=== PATIENT | male | born 1935 | race Caucasian/White ===

== ENCOUNTER → 2016-04-29 | Outpatient (CLI) | payer MEDICARE ==
[~2016-04-29] MED LIST: ADV1DS IH; ALFU10TA11 PO; CHOL200018 PO; FLUT16SP22 NS; FURO20TA4 PO; LISI10TA2 PO; MONT10TA24 PO; OMEG-79 PO; SIMV40TA4 PO; UBID200C PO; VIT PO
--- NOTE | 2016-04-29 16:41 | Diagnostic Imaging Report ---
INDICATION: Cough. PA and lateral views of the chest are obtained. There is no previous study available at this time for comparison. FINDINGS: Heart size and pulmonary vascularity are within normal limits. There is no pneumothorax or consolidation. Occasional small calcified granulomas seen within the right lung and hilum. There is no significant pleural fluid. IMPRESSION: No acute abnormalities identified. Dictated by: Dictated on workstation # [id number]
== END ==
LOC: RAD 14:18
PROVIDERS: ATTEND Nurse Practitioner Family
DX: R05 Cough (principal)
CPT/HCPCS: 71020

== ENCOUNTER → 2018-05-22 | Outpatient (CLI) | payer MEDICARE ==
--- NOTE | 2018-05-22 11:54 | Diagnostic Imaging Report ---
EXAMINATION: Left shoulder radiographs, 3 views. COMPARISON: None. HISTORY: 83-year-old male, left shoulder pain after fall. FINDINGS: The humeral head is superiorly subluxed compatible with a chronic full-thickness rotator cuff tendon tear. The humeral head is not anteriorly or posteriorly subluxed. There are very mild acromioclavicular degenerative changes without large undersurface osteophyte. There are minimal glenohumeral degenerative changes. There is no identified acute fracture. IMPRESSION: 1. Superiorly subluxed humeral head compatible with a chronic full-thickness rotator cuff tendon tear. 2. Very mild acromioclavicular and glenohumeral degenerative changes. Dictated by: Dictated on workstation # [id number]
--- NOTE | 2018-05-22 12:21 | Diagnostic Imaging Report ---
EXAMINATION: Left hip at 11:37 a.m. INDICATION: Fell, hip pain. AP and lateral views were obtained. There are no prior studies available for comparison. FINDINGS: There is no fracture, dislocation, or acute bony abnormality evident. 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 There is fairly severe degenerative disc and bony disease of the visualized lower lumbar spine, particularly at L4-5. The soft tissues are unremarkable. IMPRESSION: There is no evidence for an acute bony abnormality. Dictated by: Dictated on workstation # [id number]
== END ==
LOC: RAD 11:11
PROVIDERS: ATTEND Nurse Practitioner Family
DX: S43.002A Unspecified subluxation of left shoulder joint, initial encounter (principal); M19.012 Primary osteoarthritis, left shoulder; M25.552 Pain in left hip; W19.XXXA Unspecified fall, initial encounter
CPT/HCPCS: 73030; 73502

== ENCOUNTER 2018-12-18 19:41 | Outpatient (CLI) | payer MEDICARE | END 2018-12-19 05:59 | disposition home or self-care (01) | LOC: SLEEP 19:41 | PROVIDERS: ATTEND Nurse Practitioner | DX: G47.33 Obstructive sleep apnea (adult) (pediatric) (principal); R51 Headache | CPT/HCPCS: 95811 ==

== ENCOUNTER 2019-04-02 14:16 | Inpatient (IN) | payer MEDICARE ==
[~2019-04-02] VITALS: Ht 170.2 cm; Wt 71.2 kg
[2019-04-02] MEDS ORDERED: NS IV 1000 ML 1,000 ML IV SCH ×2 (14:27)
[2019-04-02] MEDS ORDERED: CEFEPIME INJECTION 1,000 MG in WATER (STERILE) FOR INJECTION 10 ML IV ONE (14:30)
[2019-04-02] MEDS ORDERED: VANCOMYCIN INJECTION 1,500 MG in NS IV 500 ML 500 ML IV ONE (14:30)
[2019-04-02] MEDS ORDERED: PHARMACY TO DOSE IV ONE (14:30)
[2019-04-02 14:52] LABS: BASOPHILS % (AUTO) 0 % (0-10); EOSINOPHILS # (AUTO) 0.1 10^3/uL (0.0-0.3); EOSINOPHILS % (AUTO) 1 % (0-10); HEMATOCRIT 36 % (40-54); HEMOGLOBIN 12.2 G/DL (13.3-17.7); LYMPHOCYTES # (AUTO) 0.9 X 10^3 (1.0-4.0); LYMPHOCYTES % (AUTO) 6 % (12-44); MEAN CORPUSCULAR HEMOGLOBIN 32 PG (25-34); MEAN CORPUSCULAR HGB CONC 34 G/DL (32-36); MEAN CORPUSCULAR VOLUME 94 FL (80-99); MEAN PLATELET VOLUME 10.3 FL (7.4-10.4); MONOCYTES # (AUTO) 0.8 X 10^3 (0.0-1.0); MONOCYTES % (AUTO) 6 % (0-12); NEUTROPHILS # (AUTO) 12.7 X 10^3 (1.8-7.8); NEUTROPHILS % (AUTO) 87 % (42-75); PLATELET COUNT 312 10^3/uL (130-400); RED CELL DISTRIBUTION WIDTH 12.8 % (10.0-14.5); WHITE BLOOD COUNT 14.6 10^3/uL (4.3-11.0)
--- NOTE | 2019-04-02 14:58 | ED Respiratory ---
General Chief Complaint: Fever-Adult/Adol Stated Complaint: N/V Nursing Triage Note: Patient brought to ER by with complaint of fever today with cough. Patient did have one episode of vomiting today. Patient had surgery on right knee on Mar [address] Osuna. Patient has not had tylenol or ibuprofen today. He did take a Tramadol at 07:00 AM today. Source: patient, spouse Exam Limitations: clinical condition (early dementia with some mild delirium today per ) History of Present Illness Date Seen by Provider: Apr 02, 2019 Time Seen by Provider: 14:19 Initial Comments Patient arrives the ER by private conveyance with spouse and chief complaint that they were going to Dr. Osuna's office for follow-up from her knee was replaced on the right side a few weeks ago. He has been progressing very well, ambulating and down to just to tramadol daily for pain control. No increased redness or swelling but today noted to have fever, nausea vomiting, cough, chills and increasing confusion. He follows with Dr. Hoskins for primary care. Spouse denies that he had Tylenol or NSAIDs today. Not having any increase swelling in his hands or feet. No history of coronary disease but he does have high blood pressure. He does not smoke drink or use drugs. He does have baseline incontinence of urine and had an episode of incontinence on the way over. Spouse says this is not unusual for him. Allergies and Home Medications Allergies Coded Allergies: Penicillins (Unverified Allergy, Unknown, 09/12/13) erythromycin base (Unverified Allergy, Unknown, 09/12/13) Home Medications Alfuzosin Hcl 10 Mg Tab.er.24h, 10 MG PO DAILY, (Reported) Cholecalciferol (Vitamin D3) 2,000 Unit Capsule, 1,000 UNIT PO DAILY, (Reported) Fluticasone Propionate 16 Gm Naspr, 2 SPRAYS NS DAILY, (Reported) Fluticasone/Salmeterol 250 Mcg/50 Mcg Inh, 1 SPRAY IH DAILY, (Reported) Furosemide 20 Mg Tablet, 1 EACH PO PRN PRN for NERVOUSNESS, (Reported) Lisinopril 10 Mg Tablet, 5 MG PO DAILY, (Reported) Montelukast Sodium 10 Mg Tablet, 10 MG PO DAILY, (Reported) [place]-3/Dha/Epa/Fish Oil 1 Each Capsule, 1 EACH PO DAILY, (Reported) Simvastatin 40 Mg Tablet, 40 MG PO DAILY, (Reported) Ubidecarenone 200 Mg Capsule, 200 MG PO DAILY, (Reported) [vemma- liquid vit.] , 1 DROP PO DAILY, (Reported) Patient Home Medication List Home Medication List Reviewed: Yes Review of Systems Review of Systems Constitutional: chills; No diaphoresis; fever, malaise, weakness EENTM: No ear discharge, No ear pain Respiratory: cough, phlegm, short of breath, wheezing Cardiovascular: No chest pain, No edema, No Hx of Intervention, No palpitations Gastrointestinal: No abdominal pain, No diarrhea, No dysphagia; nausea, vomiting Genitourinary: No discharge, No dysuria Musculoskeletal: No back pain, No joint pain Skin: No pruritus, No rash All Other Systems Reviewed Negative Unless Noted: Yes Past Gbiuubg-Dhcnet-Kjsiad Hx Patient Social History Alcohol Use: Denies Use Recreational Drug Use: No Smoking Status: Former Smoker Former Smoker, Quit: Feb 14, 1979 2nd Hand Smoke Exposure: No Recent Foreign Travel: No Contact w/Someone Who Travel: No Recent Infectious Disease Expo: No Recent Hopitalizations: Yes Immunizations Up To Date PED Vaccines UTD: Yes Date of Pneumonia Vaccine: Nov 14, 2009 Date of Influenza Vaccine: Nov 15, 2019 Seasonal Allergies Seasonal Allergies: No Past Medical History Surgeries: Yes (right knee surgery, vascectomy, right heel surgery due to injury) Gallbladder, Orthopedic Respiratory: Yes (ASTHMA) Cardiac: Yes High Cholesterol, Hypertension Neurological: No 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) Gastrointestinal: Yes (HX COLON POLYPS) Musculoskeletal: Yes (ARTHRITIS) Endocrine: Yes Diabetes, Non-Insulin dep HEENT: Yes Cataract Cancer: Yes Skin What Type of Treatment Did You: Surgical Intervention Psychosocial: No Physical Exam Vital Signs - First Documented 04/02/19 14:18 Temp 39.2 Pulse 115 Resp 22 B/P (MAP) 122/69 (86) Pulse Ox 89 O2 Delivery Room Air Capillary Refill : Less Than 3 Seconds Height: 5'7.00" Weight: 183lbs. oz. 83.338496tg; 25.00 BMI Method: General Appearance: WD/WN, mild distress Eyes: Bilateral Eye Normal Inspection, Bilateral Eye PERRL, Bilateral Eye EOMI HEENT: PERRL/EOMI, normal ENT inspection; No pharynx normal (oropharynx is dry) Neck: full range of motion, normal inspection Respiratory: no accessory muscle use, respiratory distress (mild), rales (left lower), wheezing (bilateral) Cardiovascular: normal peripheral pulses, regular rate, rhythm Gastrointestinal: normal bowel sounds, non tender, soft, no organomegaly Neurologic/Psychiatric: alert, normal mood/affect, other (oriented to person and place but not time) Skin: normal color, warm/dry Focused Exam Sepsis Stage: Sepsis Possible Source: Pulmonary Lactate Level 04/02/19 14:35: Lactic Acid Level 1.41 Time of Focused Exam: 15:30 Respiratory: No Accessory Muscle Use, No Respiratory Distress, Rales (left base) Cardiovascular: Regular Rate, Rhythm, No Edema, Normal Peripheral Pulses Capillary Refill: Less Than 3 Seconds Peripheral Pulses: 2+ Radial Pulses (R), 2+ Radial Pulses (L) Skin: normal color, warm/dry Lactic Acid Level Laboratory Tests Test 04/02/19 14:35 Lactic Acid Level 1.41 MMOL/L (0.50-2.00) Within 3hrs of presentation: Admin fluids, Admin ABX, Blood cultures prior to ABX's, Focus exam, Lactate level Progress/Results/Core Measures Suspected Sepsis Recent Fever Within 48 Hours: Yes Infection Criteria Present: Suspected New Infection New/Unexplained Altered Menta: No Sepsis Screen: Possible Severe Sepsis Risk SIRS Temperature: Pulse: 115 Respiratory Rate: 22 Laboratory Tests 04/02/19 14:35: White Blood Count 14.6H Blood Pressure 122 /69 Mean: 86 04/02/19 14:35: Lactic Acid Level 1.41 Laboratory Tests 04/02/19 14:35: Creatinine 1.03, INR Comment 1.2, Platelet Count 312, Total Bilirubin 0.8 Results/Orders Lab Results Laboratory Tests Test 04/02/19 14:35 Range/Units White Blood Count 14.6 H 4.3-11.0 10^3/uL Red Blood Count 3.87 L 4.35-5.85 10^6/uL Hemoglobin 12.2 L 13.3-17.7 G/DL Hematocrit 36 L 40-54 % Mean Corpuscular Volume 94 80-99 FL Mean Corpuscular Hemoglobin 32 25-34 PG Mean Corpuscular Hemoglobin Concent 34 32-36 G/DL Red Cell Distribution Width 12.8 10.0-14.5 % Platelet Count 312 130-400 10^3/uL Mean Platelet Volume 10.3 7.4-10.4 FL Neutrophils (%) (Auto) 87 H 42-75 % Lymphocytes (%) (Auto) 6 L 12-44 % Monocytes (%) (Auto) 6 0-12 % Eosinophils (%) (Auto) 1 0-10 % Basophils (%) (Auto) 0 0-10 % Neutrophils # (Auto) 12.7 H 1.8-7.8 X 10^3 Lymphocytes # (Auto) 0.9 L 1.0-4.0 X 10^3 Monocytes # (Auto) 0.8 0.0-1.0 X 10^3 Eosinophils # (Auto) 0.1 0.0-0.3 10^3/uL Basophils # (Auto) 0.0 0.0-0.1 10^3/uL Neutrophils % (Manual) 80 % Lymphocytes % (Manual) 11 % Monocytes % (Manual) 3 % Eosinophils % (Manual) 2 % Band Neutrophils 4 % Prothrombin Time 15.2 H 12.2-14.7 SEC INR Comment 1.2 0.8-1.4 Activated Partial Thromboplast Time 32 24-35 SEC Urine Color YELLOW Urine Clarity CLEAR Urine pH 8.0 5-9 Urine Specific [place] 1.015 L 1.016-1.022 Urine Protein NEGATIVE NEGATIVE Urine Glucose (UA) NEGATIVE NEGATIVE Urine Ketones NEGATIVE NEGATIVE Urine Nitrite NEGATIVE NEGATIVE Urine Bilirubin NEGATIVE NEGATIVE Urine Urobilinogen 0.2 < = 1.0 MG/DL Urine Leukocyte Esterase NEGATIVE NEGATIVE Urine RBC (Auto) NEGATIVE NEGATIVE Urine RBC RARE /HPF Urine WBC 0-2 /HPF Urine Squamous Epithelial Cells NONE /HPF Urine Crystals NONE /LPF Urine Bacteria NEGATIVE /HPF Urine Casts NONE /LPF Urine Mucus NEGATIVE /LPF Urine Culture Indicated NO Sodium Level 137 135-145 MMOL/L Potassium Level 3.7 3.6-5.0 MMOL/L Chloride Level 104 98-107 MMOL/L Carbon Dioxide Level 24 21-32 MMOL/L Anion Gap 9 5-14 MMOL/L Blood Urea Nitrogen 27 H 7-18 MG/DL Creatinine 1.03 0.60-1.30 MG/DL Estimat Glomerular Filtration Rate > 60 BUN/Creatinine Ratio 26 Glucose Level 166 H 70-105 MG/DL Lactic Acid Level 1.41 0.50-2.00 MMOL/L Calcium Level 9.5 8.5-10.1 MG/DL Corrected Calcium 9.5 8.5-10.1 MG/DL Total Bilirubin 0.8 0.1-1.0 MG/DL Aspartate Amino Transf (AST/SGOT) 21 5-34 U/L Alanine Aminotransferase (ALT/SGPT) 26 0-55 U/L Alkaline Phosphatase 67 40-136 U/L Total Protein 7.1 6.4-8.2 GM/DL Albumin 4.0 3.2-4.5 GM/DL Micro Results Microbiology 04/02/19 Influenza Types A,B Antigen ([place]) - Final, Complete My Orders Orders - ANAND MULLER Cbc With Automated Diff (04/02/19 14:) Comprehensive Metabolic Panel (04/02/19:) Blood Culture (04/02/19:) Sputum Culture (04/02/19 14:) Urinalysis (04/02/19:) Urine Culture (04/02/19:) Protime With Inr (04/02/19:) Partial Thromboplastin Time (04/02/19:) Chest 1 View, Ap/Pa Only (04/02/19 14:27) Ed Iv/Invasive Line Start (04/02/19 14:27) Ed Iv/Invasive Line Start (04/02/19 14:) Vital Signs Adult Sepsis Patie Q15M (04/02/19 14:27) O2 (04/02/19 14:27) Remove Rings In Anticipation O (04/02/19 14:27) Lactic Acid Analyzer (04/02/19 14:27) Influenza A And B Antigens (04/02/19 14:27) Ns Iv 1000 Ml (Sodium Chloride 0.9%) (04/02/19 14:27) Cefepime Injection (Maxipime Injection) (04/02/19 14:30) Vancomycin Injection (Vancomycin Injecti (04/02/19 14:30) Pharmacy To Dose (Pharmacy To Dose) (04/02/19 14:30) Ed Iv/Invasive Line Start (04/02/19 14:27) Ns Iv 1000 Ml (Sodium Chloride 0.9%) (04/02/19 14:27) Catheter(Urinary) Insert & Ass 03,15 (04/02/19 14:32) Manual Differential (04/02/19 14:35) Acetaminophen Tablet (Tylenol Tablet) (04/02/19 15:00) Ondansetron Injection (Zofran Injectio (04/02/19 15:00) Medications Given in ED Current Medications Medications Dose Ordered Sig/Sy Route Start Time Stop Time Status Last Admin Dose Admin Acetaminophen 1,000 mg ONCE ONCE PO 04/02/19 15:00 04/02/19 15:01 DC 04/02/19 15:14 1,000 MG Cefepime HCl 1000 mg/Sterile Water 10 ml @ 200 mls/hr ONCE ONCE IV 04/02/19 14:30 04/02/19 14:32 DC 04/02/19 15:14 200 MLS/HR Ondansetron HCl 4 mg ONCE ONCE IVP 04/02/19 15:00 04/02/19 15:01 DC 04/02/19 15:14 4 MG Vancomycin HCl 1500 mg/Sodium Chloride 500 ml @ 257 mls/hr ONCE ONCE IV 04/02/19 14:30 04/02/19 16:26 DC 04/02/19 16:05 257 MLS/HR Vital Signs/I&O 04/02/19 04/02/19 14:18 14:20 Temp 39.2 Pulse 115 Resp 22 B/P (MAP) 122/69 (86) Pulse Ox 89 92 O2 Delivery Room Air Nasal Cannula Capillary Refill : Less Than 3 Seconds Blood Pressure Mean: 86 Progress Note : Time: 14:57 Progress Note Septic workup to include 30 minutes no lesion or kilogram or 2 L of normal jairo ine, cefepime and vancomycin. His history of allergy to penicillin is a rash. Influenza swab. We'll give him a gram of Tylenol and some Zofran for his symptoms. Diagnostic Imaging Diagonstic Imaging: Xray Plain Films/CT/US/NM/MRI: chest (1v) Comments [facility]. [place], [place] NAME: TERRY HUANG [facility] REC#: [id number] PT STATUS: REG ER : 1935 PHYSICIAN: ANAND MULLER MD ADMIT DATE: 04/02/19/ER Draft Date of Exam:04/02/19 CHEST 1 VIEW, AP/PA ONLY INDICATION: Lower respiratory infection. EXAMINATION: Portable chest at 2:55 PM. FINDINGS: The heart size and pulmonary vascularity are normal. There are no infiltrates, effusions, or pneumothoraces. IMPRESSION: No acute abnormality is seen in the chest. Dictated on workstation # [id number] Dict: 04/02/19 1502 Trans: 04/02/19 1504 [id number] Interpreted by: LINDEN HU MD Electronically signed by: Reviewed: Reviewed by Me Departure Communication (Admissions) Time/Spoke to Admitting Phy: 15:30 Discussed case lab imaging findings with Dr. Hoskins and she agrees with antibiotic selection and floor placement. Impression Primary Impression: Pneumonia Qualified Codes: J18.1 - Lobar pneumonia, unspecified organism Additional Impressions: Sepsis Qualified Codes: A41.9 - Sepsis, unspecified organism; R65.20 - Severe sepsis without septic shock; G93.40 - Encephalopathy, unspecified Delirium due to another medical condition Disposition: ADMITTED INPATIENT Condition: Stable Admissions Decision to Admit Reason: Admit from ER (General) Decision to Admit/Date: Apr 02, 2019 Time/Decision to Admit Time: 15:22 Departure-Patient Inst. Referrals: JULES HOSKINS MD (PCP/Family) Primary Care Physician ANAND MULLER Apr 02, 2019 14:58
[2019-04-02] MEDS ORDERED: ONDANSETRON 4 MG/2 ML (SDV) Z0FRAN IVP ONE (15:00)
[2019-04-02] MEDS ORDERED: ACETAMINOPHEN 500 MG TAB (TYLENOL) PO ONE (15:00)
[2019-04-02 15:02] LABS: BILIRUBIN,URINE NEGATIVE (NEGATIVE); CLARITY,URINE CLEAR; COLOR,URINE YELLOW; GLUCOSE, URINE (UA) NEGATIVE (NEGATIVE); KETONES,URINE NEGATIVE (NEGATIVE); LEUKOCYTE ESTERASE ,URINE NEGATIVE (NEGATIVE); NITRITE,URINE NEGATIVE (NEGATIVE); PROTEIN,URINE NEGATIVE (NEGATIVE)
--- NOTE | 2019-04-02 15:05 | Diagnostic Imaging Report ---
INDICATION: Lower respiratory infection. EXAMINATION: Portable chest at 2:55 PM. FINDINGS: The heart size and pulmonary vascularity are normal. There are no infiltrates, effusions, or pneumothoraces. IMPRESSION: No acute abnormality is seen in the chest. Dictated by: Dictated on workstation # [id number]
[2019-04-02 15:08] LABS: INR 1.2 (0.8-1.4); PROTHROMBIN TIME PATIENT 15.2 SEC (12.2-14.7)
[2019-04-02 15:13] LABS: ALANINE AMINOTRANSFERASE 26 U/L (0-55); ALKALINE PHOSPHATASE 67 U/L (40-136); BILIRUBIN,TOTAL 0.8 MG/DL (0.1-1.0); BUN/CREATININE RATIO 26; CALCIUM 9.5 MG/DL (8.5-10.1); CARBON DIOXIDE 24 MMOL/L (21-32); CHLORIDE 104 MMOL/L (98-107); CREATININE SERUM 1.03 MG/DL (0.60-1.30); GFR ESTIMATED > 60; GLUCOSE 166 MG/DL (70-105); POTASSIUM 3.7 MMOL/L (3.6-5.0); SODIUM 137 MMOL/L (135-145); TOTAL PROTEIN 7.1 GM/DL (6.4-8.2)
[2019-04-02 15:15] LABS: BACTERIA,URINE NEGATIVE /HPF; RBC,URINE RARE /HPF; WBC,URINE 0-2 /HPF
[2019-04-02 15:25] LABS: BAND NEUTROPHILS 4 %; EOSINOPHILS % (MANUAL) 2 %; LYMPHOCYTES % (MANUAL) 11 %; MONOCYTES % (MANUAL) 3 %; NEUTROPHILS % (MANUAL) 80 %
--- NOTE | 2019-04-02 17:41 | NUR ---
CR 1.03; CR CL ~49; WT 74.8 KG; VANCO 1500 MG IV GIVEN IN ER; CONTINUE WITH VANCO 1250 MG IV Q24H X 2 MORE DAYS
[2019-04-02] MEDS ORDERED: ACETAMINOPHEN 500 MG TAB (TYLENOL) PO PRN ×2 (17:45→20:45)
[2019-04-02] MEDS ORDERED: IBUPROFEN 600 MG (MOTRIN) TAB PO PRN (17:45)
[2019-04-02] MEDS ORDERED: ONDANSETRON 4 MG/2 ML (SDV) Z0FRAN IV PRN (17:45)
[2019-04-02] MEDS ORDERED: CATHETER FLUSH 10 ML SYR IV PRN (17:45)
[2019-04-02 17:47] VITALS: BP 126/68
[2019-04-02] MEDS: NS IV 1000 ML 1,000 ML IV SCH (18:31)
[2019-04-02] MEDS: ENOXAPARIN 40 MG/0.4 ML (LOVENOX) SYR SC SCH (18:33)
[2019-04-02 19:37] VITALS: BP 115/68
[2019-04-02] MEDS ORDERED: RT-ALBUTEROL/IPRATROPIUM 3 ML (DUONEB) VIAL INH PRN (20:15)
--- NOTE | 2019-04-02 20:49 | History & Physical ---
History of Present Illness History of Present Illness Reason for visit/HPI PT IS AN 84 Y/O MALE WHO IS KNOWN TO ME FROM CLINIC. HE PRESENTED TO THE HOSPITAL AFTER HAVING AN ACUTE EPISODE OF FEELING POORLY AND HAVING AN ACUTE EPISODE OF EMESIS AFTER SEEING HIS ORTHOPEDIC SURGEON. HE REPORTS THAT HE DID NOT HAVE CHILLS, FEVER, DIZZINESS, CHEST PAIN, SHORTNESS OF BREATH. HE DENIES SWELLING OR FEVER IN HIS RIGHT KNEE. HE HAD THE KNEE REPLACEMENT ON 03/20/2019. Date of Admission Apr 02, 2019 at 15:30 Date Seen by a Provider: Apr 02, 2019 Time Seen by a Provider: 20:15 I consulted on this patient on 04/02/19 20:15 Attending Physician Jules Hoskins MD Admitting Physician Jules Hoskins MD Consult Allergies and Home Medications Allergies Coded Allergies: Penicillins (Unverified Allergy, Unknown, 09/12/13) erythromycin base (Unverified Allergy, Unknown, 09/12/13) Home Medications Alfuzosin Hcl 10 Mg Tab.er.24h, 10 MG PO DAILY, (Reported) Cholecalciferol (Vitamin D3) 2,000 Unit Capsule, 1,000 UNIT PO DAILY, (Reported) Fluticasone Propionate 16 Gm Naspr, 2 SPRAYS NS DAILY, (Reported) Fluticasone/Salmeterol 250 Mcg/50 Mcg Inh, 1 SPRAY IH DAILY, (Reported) Furosemide 20 Mg Tablet, 1 EACH PO PRN PRN for NERVOUSNESS, (Reported) Lisinopril 10 Mg Tablet, 5 MG PO DAILY, (Reported) Montelukast Sodium 10 Mg Tablet, 10 MG PO DAILY, (Reported) [place]-3/Dha/Epa/Fish Oil 1 Each Capsule, 1 EACH PO DAILY, (Reported) Simvastatin 40 Mg Tablet, 20 MG PO DAILY, (Reported) Ubidecarenone 200 Mg Capsule, 200 MG PO DAILY, (Reported) [vemma- liquid vit.] , 1 DROP PO DAILY, (Reported) Patient Home Medication List Home Medication List Reviewed: Yes Past Xklrupc-Ifqaeb-Mxslck Hx Past Med/Social Hx: Reviewed Nursing Past Med/Soc Hx, Reviewed and Corrections made Patient Social History Marrital Status: Living Status: LIVES AT HOME WITH SPOUSE Employed/Student: retired Alcohol Use: Denies Use Recreational Drug Use: No Smoking Status: Former Smoker Former Smoker, Quit: Feb 14, 1955 Type Used: Cigars 2nd Hand Smoke Exposure: No Physical Abuse Screen: No Sexual Abuse: No Recent Foreign Travel: No Contact w/other who traveled: No Recent Hopitalizations: Yes (03/20/2019 - KNEE REPLACEMENT) Recent Infectious Disease Expo: No Immunizations Up To Date Pediatric: Yes Date of Pneumonia Vaccine: Nov 14, 2009 Date of Influenza Vaccine: Nov 14, 2018 Seasonal Allergies Seasonal Allergies: No Past Medical History Surgeries: Gallbladder, Orthopedic Cardiac: High Cholesterol, Hypertension Endocrine: Diabetes, Non-Insulin dep HEENT: Cataract Cancer: Skin What Type of Treatment Did You: Surgical Intervention Family History Reviewed and Corrections made Diabetes mellitus 19 FATHER Diabetes, Hypertension Review of Systems Constitutional: No chills, No diaphoresis, No fever, No malaise, No weakness EENTM: No hoarseness, No throat pain Respiratory: cough; No dyspnea on exertion, No short of breath Cardiovascular: No chest pain, No edema Gastrointestinal: No abdominal pain, No constipation, No diarrhea; nausea, vomiting Genitourinary: no symptoms reported Musculoskeletal: other (RIGHT KNEE PAIN STATUS POST REPLACEMENT ON 03/20/2019) Psychiatric/Neurological: No Symptoms Reported; Denies Anxiety, Denies Depressed All Other Systems Reviewed Negative Unless Noted: Yes Physical Exam Vital Signs Vital Signs - First Documented 04/02/19 04/02/19 04/02/19 14:18 17:47 19:51 Temp 39.2 Pulse 115 Resp 22 B/P (MAP) 122/69 (86) Pulse Ox 89 O2 Delivery Room Air O2 Flow Rate 2.00 FiO2 21 Capillary Refill : Less Than 3 Seconds Height, Weight, BMI Height: 5'7.00" Weight: 183lbs. oz. 83.112931dm; 24.57 BMI Method: General Appearance: No Apparent Distress, WD/WN Eyes: Bilateral Eye Normal Inspection, Bilateral Eye PERRL, Bilateral Eye EOMI HEENT: PERRL/EOMI, Pharynx Normal Neck: Full Range of Motion, Non Tender, Supple Respiratory: Chest Non Tender, Decreased Breath Sounds, Rales, Rhonci Cardiovascular: Regular Rate, Rhythm, No Edema, No Murmur, Normal Peripheral Pulses Gastrointestinal: Normal Bowel Sounds, No Organomegaly, Non Tender, Soft Rectal: Deferred Genital/Rectal: Other (DE LEON IN PLACE) Extremity: Normal Capillary Refill, Non Tender, No Calf Tenderness, No Pedal Edema, Other (SURGICAL SITE RIGHT KNEE ANTERIORLY - NO ERYTHEMA, NO INDURATION) Neurologic/Psychiatric: Alert, Oriented x3, No Motor/Sensory Deficits, Normal Mood/Affect, armature tester II-XII Norm as Tested Skin: Warm/Dry Lymphatic: No Adenopathy Assessment/Plan Assessment and Plan PNEUMONIA NAUSEA LEUKOCYTOSIS MILD DEHYDRATION STATUS POST RIGHT KNEE REPLACEMENT HYPERTENSION HYPERLIPIDEMIA PNEUMONIA - CONTINUE WITH IV ANTIBIOTICS - CEFEPIME, VANCOMYCIN, WAITING ON CULTURE REPORTS. - REPEAT 2 VIEW CHEST XRAY TOMORROW. NAUSEA - NOW RESOLVED -PRN ANTI-EMETICS. LEUKOCYTOSIS - WILL REPEAT LABS TOMORROW. MILD DEHYDRATION - CONTINUE WITH IV FLUIDS - REPEAT LABS IN MORNING - IV FLUIDS DECREASED FROM 150ML/HR TO 100ML/HR STATUS POST RIGHT KNEE REPLACEMENT - CPM MACHINE TO BE SET-UP TOMORROW BY THERAPY STAFF - POLAR ICE BATH FOR KNEE TOMORROW. HYPERTENSION - RESTART HOME MEDICATIONS ONCE RECONCILED TOMORROW HYPERLIPIDEMIA - RESTART HOME MEDICATIONS ONCE RECONCILED TOMORROW Admission Diagnosis PNEUMONIA NAUSEA LEUKOCYTOSIS MILD DEHYDRATION STATUS POST RIGHT KNEE REPLACEMENT HYPERTENSION HYPERLIPIDEMIA Admission Status: Inpatient Order (span 2 midnights) Reason for Inpatient Admission: INPT ADMISSION FOR PNEUMONIA, WILL NEED AT LEAST 48 - 72 HOURS FOR STABILIZATION OF SYMPTOMS, TREATMENT AND TRANSION FROM IV TO ORAL ANTIBIOTICS Clinical Quality Measures DVT/VTE Risk/Contraindication: Risk Factor Score Per Nursin RFS Level Per Nursing on Admit: 4+=Very High JULES HOSKINS MD Apr 02, 2019 20:49
[2019-04-02] MEDS: CEFEPIME 1,000 MG/SWFI 10 ML IV PUSH IV SCH ×2 (22:13)
[2019-04-03] VITALS (7 sets, daily range): BP systolic 116–129; BP diastolic 59–75
[2019-04-03] MEDS: NS IV 1000 ML 1,000 ML IV SCH ×2 (02:54→13:37)
[2019-04-03 04:57] LABS: BASOPHILS % (AUTO) 0 % (0-10); EOSINOPHILS # (AUTO) 0.2 10^3/uL (0.0-0.3); EOSINOPHILS % (AUTO) 1 % (0-10); HEMATOCRIT 30 % (40-54); HEMOGLOBIN 10.3 G/DL (13.3-17.7); LYMPHOCYTES # (AUTO) 1.4 X 10^3 (1.0-4.0); LYMPHOCYTES % (AUTO) 8 % (12-44); MEAN CORPUSCULAR HEMOGLOBIN 32 PG (25-34); MEAN CORPUSCULAR HGB CONC 34 G/DL (32-36); MEAN CORPUSCULAR VOLUME 95 FL (80-99); MEAN PLATELET VOLUME 9.9 FL (7.4-10.4); MONOCYTES # (AUTO) 1.2 X 10^3 (0.0-1.0); MONOCYTES % (AUTO) 7 % (0-12); NEUTROPHILS # (AUTO) 14.6 X 10^3 (1.8-7.8); NEUTROPHILS % (AUTO) 84 % (42-75); PLATELET COUNT 269 10^3/uL (130-400); RED CELL DISTRIBUTION WIDTH 13.2 % (10.0-14.5); WHITE BLOOD COUNT 17.5 10^3/uL (4.3-11.0)
[2019-04-03 05:20] LABS: ALANINE AMINOTRANSFERASE 18 U/L (0-55); ALBUMIN 3.2 GM/DL (3.2-4.5); ALKALINE PHOSPHATASE 56 U/L (40-136); BILIRUBIN,TOTAL 0.8 MG/DL (0.1-1.0); BUN/CREATININE RATIO 23; CALCIUM 8.2 MG/DL (8.5-10.1); CARBON DIOXIDE 20 MMOL/L (21-32); CHLORIDE 111 MMOL/L (98-107); CREATININE SERUM 0.93 MG/DL (0.60-1.30); GFR ESTIMATED > 60; GLUCOSE 107 MG/DL (70-105); POTASSIUM 3.8 MMOL/L (3.6-5.0); SODIUM 140 MMOL/L (135-145); TOTAL PROTEIN 5.7 GM/DL (6.4-8.2)
[2019-04-03] MEDS: CEFEPIME 1,000 MG/SWFI 10 ML IV PUSH IV SCH ×4 (06:07→18:15)
--- NOTE | 2019-04-03 08:51 | Progress Note ---
Subjective Subjective Date Seen by Provider: Apr 03, 2019 Time Seen by Provider: 08:40 PT REPORTS THAT HE IS FEELING A LITTLE BIT BETTER TODAY - HE NOTES THAT HE DOES NOT FEEL FEVERISH TODAY. HE REPORTS THAT HE IS STILL HAVING A COUGH. HE DENIES ABDOMINAL PAIN, NAUSEA, CHEST PAIN. HE DOES HAVE KNEE PAIN POST-OPERATIVELY, BUT IT IS NOT GREATER PAIN THAN PREVIOUS TO ADMISSION. Review of Systems General: No Chills, No Fatigue; Malaise HEENT: No Head Aches, No Dysphasia Pulmonary: No Dyspnea; Cough Cardiovascular: No: Chest Pain, Palpitations, Edema Gastrointestinal: No: Nausea, Abdominal Pain Genitourinary: No Dysuria; Other (DE LEON IN PLACE) Musculoskeletal: leg pain Neurological: Weakness; No: Confusion All Other Systems Reviewed All Other Systems Reviewed: Yes Objective Exam Vital Signs Vital Signs - First Documented 04/02/19 04/02/19 04/02/19 14:18 17:47 19:51 Temp 39.2 Pulse 115 Resp 22 B/P (MAP) 122/69 (86) Pulse Ox 89 O2 Delivery Room Air O2 Flow Rate 2.00 FiO2 21 Capillary Refill : Less Than 3 SecondsLess Than 3 Seconds General Appearance: No Apparent Distress, WD/WN Eyes: Bilateral Eye Normal Inspection, Bilateral Eye PERRL, Bilateral Eye EOMI HEENT: PERRL/EOMI, Pharynx Normal Neck: Full Range of Motion, Non Tender, Supple Respiratory: Chest Non Tender, Crackles (LEFT BASE GREATER THAN ON RIGHT), Rhonci Cardiovascular: Regular Rate, Rhythm, No Edema, No Murmur, Normal Peripheral Pulses Gastrointestinal: Normal Bowel Sounds, No Organomegaly, Non Tender, Soft Rectal: Deferred Genital/Rectal: Other (DE LEON IN PLACE) Extremity: Normal Capillary Refill, Non Tender, No Calf Tenderness, No Pedal Edema, Other (SURGICAL SITE RIGHT KNEE ANTERIORLY - NO ERYTHEMA, NO INDURATION, STERI STRIPS IN PLACE) Neurologic/Psychiatric: Alert, Oriented x3, No Motor/Sensory Deficits, Normal 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, 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 Norm as Tested Skin: Warm/Dry Lymphatic: No Adenopathy Results Lab Laboratory Tests 04/02/19 14:35: White Blood Count 14.6H, Red Blood Count 3.87L, Hemoglobin 12.2L, Hematocrit 36L , Mean Corpuscular Volume 94, Mean Corpuscular Hemoglobin 32, Mean Corpuscular Hemoglobin Concent 34, Red Cell Distribution Width 12.8, Platelet Count 312, Mean Platelet Volume 10.3, Neutrophils (%) (Auto) 87H, Lymphocytes (%) (Auto) 6L , Monocytes (%) (Auto) 6, Eosinophils (%) (Auto) 1, Basophils (%) (Auto) 0, Neutrophils # (Auto) 12.7H, Lymphocytes # (Auto) 0.9L, Monocytes # (Auto) 0.8, Eosinophils # (Auto) 0.1, Basophils # (Auto) 0.0, Neutrophils % (Manual) 80, Lymphocytes % (Manual) 11, Monocytes % (Manual) 3, Eosinophils % (Manual) 2, Band Neutrophils 4, Prothrombin Time 15.2H, INR Comment 1.2, Activated Partial Thromboplast Time 32, Urine Color YELLOW, Urine Clarity CLEAR, Urine pH 8.0, Urine Specific [place] 1.015L, Urine Protein NEGATIVE, Urine Glucose (UA) NEGATIVE, Urine Ketones NEGATIVE, Urine Nitrite NEGATIVE, Urine Bilirubin NEGATIVE, Urine Urobilinogen 0.2, Urine Leukocyte Esterase NEGATIVE, Urine RBC (Auto) NEGATIVE, Urine RBC RARE, Urine WBC 0-2, Urine Squamous Epithelial Cells NONE, Urine Crystals NONE, Urine Bacteria NEGATIVE, Urine Casts NONE, Urine Mucus NEGATIVE, Urine Culture Indicated NO, Sodium Level 137, Potassium Level 3.7, Chloride Level 104, Carbon Dioxide Level 24, Anion Gap 9, Blood Urea Nitrogen 27H, Creatinine 1.03, Estimat Glomerular Filtration Rate > 60, BUN/Creatinine Ratio 26, Glucose Level 166H, Lactic Acid Level 1.41, Calcium Level 9.5, Corrected Calcium 9.5, Total Bilirubin 0.8, Aspartate Amino Transf (AST/SGOT) 21, Alanine Aminotransferase (ALT/SGPT) 26, Alkaline Phosphatase 67, Total Protein 7.1, Albumin 4.0 04/03/19 04:35: White Blood Count 17.5H, Red Blood Count 3.20L, Hemoglobin 10.3L, Hematocrit 30L , Mean Corpuscular Volume 95, Mean Corpuscular Hemoglobin 32, Mean Corpuscular Hemoglobin Concent 34, Red Cell Distribution Width 13.2, Platelet Count 269, Mean Platelet Volume 9.9, Neutrophils (%) (Auto) 84H, Lymphocytes (%) (Auto) 8L, Monocytes (%) (Auto) 7, Eosinophils (%) (Auto) 1, Basophils (%) (Auto) 0, Neutrophils # (Auto) 14.6H, Lymphocytes # (Auto) 1.4, Monocytes # (Auto) 1.2H, Eosinophils # (Auto) 0.2, Basophils # (Auto) 0.0, Sodium Level 140, Potassium Level 3.8, Chloride Level 111H, Carbon Dioxide Level 20L, Anion Gap 9, Blood Urea Nitrogen 21H, Creatinine 0.93, Estimat Glomerular Filtration Rate > 60, BUN/Creatinine Ratio 23, Glucose Level 107H, Calcium Level 8.2L, Corrected Calcium 8.8, Total Bilirubin 0.8, Aspartate Amino Transf (AST/SGOT) 17, Alanine Aminotransferase (ALT/SGPT) 18, Alkaline Phosphatase 56, Total Protein 5.7L, Albumin 3.2 Microbiology 04/02/19 Influenza Types A,B Antigen (SEVERINO) - Final, Complete Assessment/Plan Assessment/Plan Admission Dx PNEUMONIA NAUSEA LEUKOCYTOSIS MILD DEHYDRATION STATUS POST RIGHT KNEE REPLACEMENT HYPERTENSION HYPERLIPIDEMIA Admission Status: Inpatient Order (span 2 midnights) Reason for Inpatient Admission: CONTINUED NEED FOR INPATIENT DUE TO ELEVATION OF WHITE COUNT FROM ADMISSION, CONTINUED NEED FOR IV ANTIBIOTICS, SERIAL CHEST XRAYS. Assessment and Plan PNEUMONIA NAUSEA LEUKOCYTOSIS MILD DEHYDRATION STATUS POST RIGHT KNEE REPLACEMENT HYPERTENSION HYPERLIPIDEMIA PNEUMONIA - CONTINUE WITH IV ANTIBIOTICS - CEFEPIME, VANCOMYCIN, WAITING ON CULTURE REPORTS. - REPEAT 2 VIEW CHEST XRAY AGAIN TOMORROW. - TODAY SHOWED SLIGHT INCREASE IN FLUID/PNEUMONIA IN LEFT LOWER LUNG NAUSEA - NOW RESOLVED -PRN ANTI-EMETICS. LEUKOCYTOSIS - HIGHER TODAY THAN ON ADMISSION - CONTINUE TO MONITOR LABS. MILD DEHYDRATION - CONTINUE WITH IV FLUIDS - REPEAT LABS IN MORNING - IV FLUIDS DECREASED FROM ADMISSION RATE OF 150ML/HR TO 100ML/HR, WILL DECREASE DOWN TO 75ML/HR TODAY STATUS POST RIGHT KNEE REPLACEMENT - CPM MACHINE TO BE SET-UP TODAY BY THERAPY STAFF - POLAR ICE BATH FOR KNEE TO BE USED NEEDED -HYDROCODONE PRN FOR PAIN HYPERTENSION - RESTART LISINOPRIL HYPERLIPIDEMIA - RESTART STATIN AND CO-ENZYME Q10 Admission Dx PNEUMONIA NAUSEA LEUKOCYTOSIS MILD DEHYDRATION STATUS POST RIGHT KNEE REPLACEMENT HYPERTENSION HYPERLIPIDEMIA Clinical Quality Measures Admission Status Admission Dx PNEUMONIA NAUSEA LEUKOCYTOSIS MILD DEHYDRATION STATUS POST RIGHT KNEE REPLACEMENT HYPERTENSION HYPERLIPIDEMIA DVT/VTE Risk/Contraindication: Risk Factor Score Per Nursin RFS Level Per Nursing on Admit: 4+=Very High JULES STUART MD Apr 03, 2019 08:51
--- NOTE | 2019-04-03 08:53 | Diagnostic Imaging Report ---
INDICATION: Pneumonia follow-up PA and lateral chest There has been some improved aeration at the right medial lung base compared to the previous day. There are no effusions or pneumothoraces. Heart size and pulmonary vascularity are normal. IMPRESSION: Improving right medial basilar infiltrate. Dictated by: Dictated on workstation # [id number]
[2019-04-03] MEDS ORDERED: lisINopril 10 MG (PRINIVIL) TABLET PO SCH (09:00)
[2019-04-03] MEDS ORDERED: NON-FORMULARY MEDICATION 1 EA EA (Ubidecarenone (Co Q-10) 200 MG) PO SCH (09:00)
[2019-04-03] MEDS ORDERED: ALFUZOSIN HCL 10 MG TAB (UROXATRAL) PO SCH (09:00)
[2019-04-03] MEDS ORDERED: FLUT1BLS12 PO (09:22)
[2019-04-03] MEDS ORDERED: MONT10TA26 PO (09:22)
[2019-04-03] MEDS ORDERED: SIMV20TA26 PO (09:22)
[2019-04-03] MEDS ORDERED: METF-397 PO (09:22)
[2019-04-03] MEDS ORDERED: MELO7.5T46 PO (09:22)
[2019-04-03] MEDS ORDERED: FINA5TAB6 PO (09:22)
[2019-04-03] MEDS ORDERED: LOSA50TA63 PO (09:24)
[2019-04-03] MEDS ORDERED: CHOL200012 PO (09:24)
[2019-04-03] MEDS ORDERED: HYDR-3820 PO (09:31)
[2019-04-03] MEDS ORDERED: FEXO180T84 PO (09:31)
[2019-04-03] MEDS ORDERED: TRAM50TA3 PO (09:31)
[2019-04-03] MEDS ORDERED: FLUT16SP22 NSEACH (09:40)
[2019-04-03] MEDS ORDERED: OMEG-154 PO (09:40)
[2019-04-03] MEDS ORDERED: UBID200C36 PO (09:40)
[2019-04-03] MEDS ORDERED: NF-CLINGEL TD (09:42)
[2019-04-03] MEDS ORDERED: DOXY100T2 PO (09:42)
[2019-04-03] MEDS ORDERED: POLY17PO6 PO (09:48)
[2019-04-03] MEDS ORDERED: ASPI-983 PO (09:48)
[2019-04-03] MEDS ORDERED: SENN-36 PO (09:48)
[2019-04-03] MEDS ORDERED: SIME125T50 PO (09:48)
[2019-04-03] MEDS ORDERED: CALC-880 PO (09:48)
[2019-04-03] MEDS ORDERED: [UNRECOGNIZED DRUG - CODE] PO (09:48)
[2019-04-03] MEDS ORDERED: CYCL1DRO OU (09:49)
--- NOTE | 2019-04-03 09:54 | NUR ---
SPOKE WITH THE PT AND HIS (PT HAD A MED LIST ON HIS CHART) WELL GOING THRU THE EXT MED HISTORY TO COMPLETE THE MED REC. EVERYTHING MATCHED THE EXT MED HISTORY AND ALL HAD GOOD DATING. PT IS GETTING DOXYCYCLINE 100MG FOR DAILY USE FROM DR. GRUBER. PT WAS GIVEN HYDRO/APAP AND TRAMADOL FOLLOWING SURGERY AND PREFERS THE TRAMADOL. BOTH ARE ON THE MED REC SINCE THE PT SAYS HE WOULD SOMETIMES NEED THE HYDROCODONE OVER THE TRAMADOL. RESTASIS IS NOT ON THE EXT MED HISTORY AND [facility] I HAVE LEFT A MESSAGE TO GET THAT INFORMATION,AFTER I SPEAK WITH THEM I WILL UPDATE MED REC AND NOTES IF NEEDED. OTC MEDS: JAN CO Q 10 VEMMA VITAMINS VIT D 3 CALCIUM WITH VIT D FISH OIL SIMETHICONE FIBER POWDER MIRALAX SENNA ASPIRIN FLONASE
[2019-04-03] MEDS: FLUTICASONE NASAL SPRAY (FLONASE) 16 GM BTL NS SCH ×2 (10:37→20:36)
[2019-04-03] MEDS: VITAMIN D3 1,000 UNITS (CHOLECALCIFEROL) TABLET PO SCH (10:37)
--- NOTE | 2019-04-03 11:39 | Physical Therapy Evaluation ---
PT Evaluation-General Medical Diagnosis Admission Date Apr 02, 2019 at 15:30 Medical Diagnosis: Sepsis / Pneumonia Onset Date: Apr 02, 2019 Therapy Diagnosis Therapy Diagnosis: Deconditioning Height/Weight Height (Feet): 5 Height (Inches): 7.00 Weight (Pounds): 183 Precautions Precautions/Isolations: Fall Prevention, Standard Precautions Weight Bear Status Right Lower Extremity: Right Weight Bearing/Tolerated Left Lower Extremity: Left Full Weight Bearing Referral Physician: Aidee Reason for Referral: Evaluation/Treatment Medical History Pertinent Medical History: DM, HTN Additional Medical History Skin cancer. Patient had right TKA 2/. Current History Patient presented to ER via with fever, post right TKA. Reviewed History: Yes Social History Home: Single Level Current Living Status: Spouse Entry Into Home: Level Entry Prior Prior Level of Function SCALE: Activities may be completed with or without assistive devices. 0-Qbtmleoyyx-xstbrza completes the activity by him/herself with no assistance from a helper. 5-Set-up or Clean-up Assistance-helper sets up or cleans up; patient completes activity. [place] assists only prior to or following the activity. 4-Supervision or Touching Assistance-helper provides verbal cues and/or touching/steadying and/or contact guard assistance as patient completes activity. Assistance may be provided throughout the activity or intermittently. 3-Partial/Moderate Assistance-helper does LESS THAN HALF the effort. Austin lifts, holds or supports trunk or limbs, but provides less than half the effort. 2-Substantial/Maximal Assistance-helper does MORE THAN HALF the effort. Austin lifts or holds trunk or limbs and provides more than half the effort. 4-Dtqpdkkyg-nwwtay does ALL the effort. Patient does none of the effort to complete the activity. Or, the assistance of 2 or more helpers is required for the patient to complete the activity. If activity was not attempted, code reason: 7-Patient Refused. 9-Not Applicable-not attempted and the patient did not perform the activity before the current illness, exacerbation or injury. 10-Not Attempted due to Environmental Limitations-(lack of equipment, weather restraints, etc.). 88-Not Attempted due to Medical Conditions or Safety Concerns. Bed Mobility: 6 Transfers (B,C,W/C): 6 Gait: 6 Indoor Mobility (Ambulation): Independent Prior Devices Use: Walker PT Evaluation-Current Subjective Patient is agreeable to therapy and reports no pain at this time. Pain Numeric Pain Scale: 0-No Pain Objective Patient Orientation: Person, Place, Time, Situation, Normal For Age Attachments: Richardson Catheter, IV ROM/Strength ROM Lower Extremities R knee approximately 90 degrees flexion and lacking 5 degrees extension. Strength Lower Extremities Expected RLE weakness following TKA. Integumentary/Posture Integumentary See nursing notes. Bowel Incontinence: No Bladder Incontinence: Richardson Cath Posture Normal Neuromuscular (Tone, Coordination, Reflexes) Grossly intact. Sensory Vision: Functional Hearing: Functional Sensation Right Lower Extremit: Intact Sensation Left Lower Extremity: Intact Transfers Roll Left to Right (QC): 6 Sit to Lying (QC): 6 Lying to Sitting/Side of Bed(Q: 6 Sit to Stand (QC): 4 Toilet Transfer: 4 Gait Does the Patient Walk?: Yes Mode of Locomotion: Walk Anticipated Mode of Locomotion: Walk Walk 10 feet (QC): 4 Walk 50 ft with 2 Turns(QC): 4 Walk 150 ft (QC): 4 Distance: 300' Gait Assistive Device: FWW Comments/Gait Description Patient is steady during ambulation and walks at an increased speed. Wheelchair Training Does the Pt Use a Wheelchair?: No Balance Sitting Static: Good Sitting Dynamic: Good Standing Static: Good Standing Dynamic: Good Treatment RLE exercises: SLR, quad set, heel slides. Assessment/Needs Patient is steady during ambulation, walking at an increased speed. Patient needed cueing to stand up tall and to stay within his walker. Patient will benefit from skilled therapy to aide in reaching maximum LOF. Patient in bed with CPM set to 0-90. 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 Goals Time Frame: Apr 10, 2019 Roll Left & Right (QC): 6 Sit to Lying (QC): 6 Lying-Sitting on Side/Bed(QC): 6 Sit to Stand (QC): 6 Chair/Umz-bm-Jhbtu Xfer(QC): 6 Toilet Transfer (QC): 6 Does the Patient Walk: Yes Walk 10 feet (QC): 6 Walk 50ft with 2 Turns (QC): 6 Walk 150 ft (QC): 6 PT Plan Problem List Problem List: Activity Tolerance, Functional Strength, Safety, Balance, Gait, Transfer, ROM Treatment/Plan Treatment Plan: Continue Plan of Care Treatment Plan: Education, Functional Activity [place], Functional Strength, Gait, Safety, Therapeutic Exercise, Transfers Treatment Duration: Apr 10, 2019 Frequency: 5 times per week Estimated Hrs Per Day: .25 hour per day Patient and/or Family Agrees t: Yes Safety Risks/Education Patient Education: Gait Training, Transfer Techniques Teaching Recipient: Patient Response to Teaching: Reinforcement Needed Discharge Recommendations Therapy Discharge Recommendati: Home & Family Time/GCodes Time In: 1000 Time Out: 1027 Total Billed Treatment Time: 27 Total Billed Treatment 1 visit EVM 27 issued CPM and pads JOE NICHOLSON PT Apr 03, 2019 11:39
[2019-04-03] MEDS ORDERED: RT-ALBUTEROL/IPRATROPIUM 3 ML (DUONEB) VIAL INH PRN (11:45)
[2019-04-03] MEDS: RT-ALBUTEROL/IPRATROPIUM 3 ML (DUONEB) VIAL INH SCH ×2 (14:33→18:37)
[2019-04-03] MEDS ORDERED: VANCOMYCIN 1250 MG/NS 250 ML IVPB IV SCH ×2 (16:00)
[2019-04-03] MEDS: ENOXAPARIN 40 MG/0.4 ML (LOVENOX) SYR SC SCH (18:15)
[2019-04-03] MEDS: RT-ADVAIR HFA 115/21 MCG PER PUFF IH SCH (18:38)
[2019-04-03] MEDS: MONTELUKAST 10 MG (SINGULAIR) TAB PO SCH (20:36)
[2019-04-03] MEDS: SIMvastatin 20 MG (ZOCOR) TAB PO SCH (20:36)
[2019-04-04] VITALS: BP 116/57
[2019-04-04] MEDS: CEFEPIME 1,000 MG/SWFI 10 ML IV PUSH IV SCH ×10 (00:09→23:42)
[2019-04-04 04:00] VITALS: BP 125/60
[2019-04-04] MEDS: NS IV 1000 ML 1,000 ML IV SCH (04:22)
[2019-04-04] MEDS: VITAMIN D3 1,000 UNITS (CHOLECALCIFEROL) TABLET PO SCH (07:48)
[2019-04-04] MEDS: RT-ADVAIR HFA 115/21 MCG PER PUFF IH SCH ×2 (07:48→19:04)
[2019-04-04] MEDS: LOSARTAN 50 MG (COZAAR) TAB PO SCH (07:48)
[2019-04-04] MEDS: RT-ALBUTEROL/IPRATROPIUM 3 ML (DUONEB) VIAL INH SCH ×4 (07:48→19:04)
[2019-04-04] MEDS: FLUTICASONE NASAL SPRAY (FLONASE) 16 GM BTL NS SCH ×2 (07:49→20:49)
[2019-04-04 08:00] VITALS: BP 149/65
[2019-04-04 09:23] LABS: HEMOGLOBIN 9.8 G/DL (13.3-17.7); MEAN PLATELET VOLUME 10.4 FL (7.4-10.4); WHITE BLOOD COUNT 8.3 10^3/uL (4.3-11.0)
--- NOTE | 2019-04-04 09:34 | Progress Note ---
Subjective Subjective PT REPORTS THAT HE IS FEELING A LITTLE BIT BETTER TODAY - HE NOTES THAT HE DOES NOT FEEL FEVERISH TODAY. HE REPORTS THAT HE IS STILL HAVING A COUGH. HE DENIES ABDOMINAL PAIN, NAUSEA, CHEST PAIN. HE DOES HAVE KNEE PAIN POST-OPERATIVELY, BUT IT IS NOT GREATER PAIN THAN PREVIOUS TO ADMISSION. Review of Systems General: No Chills, No Fatigue; Malaise HEENT: No Head Aches, No Dysphasia Pulmonary: No Dyspnea; Cough Cardiovascular: No: Chest Pain, Palpitations, Edema Gastrointestinal: No: Nausea, Abdominal Pain Genitourinary: No Dysuria; Other (DE LEON IN PLACE) Musculoskeletal: leg pain Neurological: Weakness; No: Confusion All Other Systems Reviewed All Other Systems Reviewed: Yes Objective Exam Vital Signs Vital Signs - First Documented 04/02/19 04/02/19 04/02/19 14:18 17:47 19:51 Temp 39.2 Pulse 115 Resp 22 B/P (MAP) 122/69 (86) Pulse Ox 89 O2 Delivery Room Air O2 Flow Rate 2.00 FiO2 21 Capillary Refill : Less Than 3 SecondsLess Than 3 Seconds General Appearance: No Apparent Distress, WD/WN Eyes: Bilateral Eye Normal Inspection, Bilateral Eye PERRL, Bilateral Eye EOMI HEENT: PERRL/EOMI, Pharynx Normal Neck: Full Range of Motion, Non Tender, Supple Respiratory: Chest Non Tender, Crackles (LEFT BASE GREATER THAN ON RIGHT), Rhonci Cardiovascular: Regular Rate, Rhythm, No Edema, No Murmur, Normal Peripheral Pulses Gastrointestinal: Normal Bowel Sounds, No Organomegaly, Non Tender, Soft Rectal: Deferred Genital/Rectal: Other (DE LEON IN PLACE) Extremity: Normal Capillary Refill, Non Tender, No Calf Tenderness, No Pedal Edema, Other (SURGICAL SITE RIGHT KNEE ANTERIORLY - NO ERYTHEMA, NO INDURATION, STERI STRIPS IN PLACE) Neurologic/Psychiatric: Alert, Oriented x3, No Motor/Sensory Deficits, Normal 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, 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 Norm as Tested Skin: Warm/Dry Lymphatic: No Adenopathy Results Lab Laboratory Tests 04/04/19 09:17: White Blood Count 8.3, Red Blood Count 3.14L, Hemoglobin 9.8L, Hematocrit 30L, Mean Corpuscular Volume 96, Mean Corpuscular Hemoglobin 31, Mean Corpuscular Hemoglobin Concent 33, Red Cell Distribution Width 13.0, Platelet Count 259, Mean Platelet Volume 10.4 Microbiology 04/02/19 Blood Culture - Preliminary, Resulted No growth 04/02/19 Urine Culture - Final, Complete NO GROWTH 04/02/19 Influenza Types A,B Antigen (SEVER[place]) - Final, Complete Assessment/Plan Assessment/Plan Admission Dx PNEUMONIA NAUSEA LEUKOCYTOSIS MILD DEHYDRATION STATUS POST RIGHT KNEE REPLACEMENT HYPERTENSION HYPERLIPIDEMIA Assessment and Plan PNEUMONIA NAUSEA LEUKOCYTOSIS MILD DEHYDRATION STATUS POST RIGHT KNEE REPLACEMENT HYPERTENSION HYPERLIPIDEMIA PNEUMONIA - CONTINUE WITH IV ANTIBIOTICS - CEFEPIME, VANCOMYCIN, WAITING ON CULTURE REPORTS. - REPEAT 2 VIEW CHEST XRAY AGAIN TOMORROW. - TODAY SHOWED SLIGHT INCREASE IN FLUID/PNEUMONIA IN LEFT LOWER LUNG NAUSEA - NOW RESOLVED -PRN ANTI-EMETICS. LEUKOCYTOSIS - HIGHER TODAY THAN ON ADMISSION - CONTINUE TO MONITOR LABS. MILD DEHYDRATION - CONTINUE WITH IV FLUIDS - REPEAT LABS IN MORNING - IV FLUIDS DECREASED FROM ADMISSION RATE OF 150ML/HR TO 100ML/HR, WILL DECREASE DOWN TO 75ML/HR TODAY STATUS POST RIGHT KNEE REPLACEMENT - CPM MACHINE TO BE SET-UP TODAY BY THERAPY STAFF - POLAR ICE BATH FOR KNEE TO BE USED NEEDED -HYDROCODONE PRN FOR PAIN HYPERTENSION - RESTART LISINOPRIL HYPERLIPIDEMIA - RESTART STATIN AND CO-ENZYME Q10 Admission Dx PNEUMONIA NAUSEA LEUKOCYTOSIS MILD DEHYDRATION STATUS POST RIGHT KNEE REPLACEMENT HYPERTENSION HYPERLIPIDEMIA Clinical Quality Measures Admission Status Admission Dx PNEUMONIA NAUSEA LEUKOCYTOSIS MILD DEHYDRATION STATUS POST RIGHT KNEE REPLACEMENT HYPERTENSION HYPERLIPIDEMIA DVT/VTE Risk/Contraindication: Risk Factor Score Per Nursin RFS Level Per Nursing on Admit: 4+=Very High JULES STUART MD Apr 04, 2019 09:34
[2019-04-04] MEDS: HYDROcodone/APAP 5 MG/325 MG (LORTAB) TAB PO PRN ×2 (10:05→20:48)
--- NOTE | 2019-04-04 11:26 | Physical Therapy Daily Note ---
PT Daily Note-Current Subjective Patient is agreeable to therapy at this time. No complaints of pain. Pain Numeric Pain Scale: 0-No Pain Appearance Patient in recliner with call light and bedside table within reach post tx. Mental Status Patient Orientation: Person, Place, Time, Situation Attachments: IV Transfers SCALE: Activities may be completed with or without assistive devices. 9-Hfvzhpaokg-ipxlqie completes the activity by him/herself with no assistance from a helper. 5-Set-up or Clean-up Assistance-helper sets up or cleans up; patient completes activity. [place] assists only prior to or following the activity. 4-Supervision or Touching Assistance-helper provides verbal cues and/or t ouching/steadying and/or contact guard assistance as patient completes activity. Assistance may be provided throughout the activity or intermittently. 3-Partial/Moderate Assistance-helper does LESS THAN HALF the effort. Metter lifts, holds or supports trunk or limbs, but provides less than half the effort. 2-Substantial/Maximal Assistance-helper does MORE THAN HALF the effort. Metter lifts or holds trunk or limbs and provides more than half the effort. 3-Rdyqroykp-wqebjj does ALL the effort. Patient does none of the effort to complete the activity. Or, the assistance of 2 or more helpers is required for the patient to complete the activity. If activity was not attempted, code reason: 7-Patient Refused. 9-Not Applicable-not attempted and the patient did not perform the activity before the current illness, exacerbation or injury. 10-Not Attempted due to Environmental Limitations-(lack of equipment, weather restraints, etc.). 88-Not Attempted due to Medical Conditions or Safety Concerns. Roll Left & Right (QC): 6 Lying to Sitting/Side of Bed(Q: 6 Sit to Stand (QC): 6 Weight Bearing Right Lower Extremity: Right Weight Bearing/Tolerated Left Lower Extremity: Left Full Weight Bearing Gait Training Does the Patient Walk?: Yes Distance: 500' Walk 10 feet (QC): 4 Walk 50 ft with 2 Turns(QC): 4 Walk 150 ft (QC): 4 Gait Persons Needed: 1 Gait Assistive Device: FWW Patient is steady during ambulation. Wheelchair Training Does the Pt Use a Wheelchair?: No Exercises Supine Ex: Ankle pumps (10RLE), Quad Set (10RLE), Heel Slides (10RLE), Short Arc Quads (10RLE), Straight leg raise (10RLE) Treatments Ambulation, bed mobility, RLE exercises. Assessment Current Status: Fair Progress Patient tolerates exercises well and is steady during ambulation. PT [facility] Goals Facility Specialist Goals PT Facility Specialist Goals Time Frame: Apr 10, 2019 Roll Left & Right (QC): 6 Sit to Lying (QC): 6 Lying-Sitting on Side/Bed(QC): 6 Sit to Stand (QC): 6 Chair/Idm-gi-Kyvax Xfer(QC): 6 Toilet Transfer (QC): 6 Does the Patient Walk: Yes Walk 10 feet (QC): 6 Walk 50ft with 2 Turns (QC): 6 Walk 150 ft (QC): 6 PT Plan Problem List Problem List: Activity Tolerance, Functional Strength, Safety, Balance, Gait, Transfer Treatment/Plan Treatment Plan: Continue Plan of Care Treatment Plan: Education, Functional Activity [place], Functional Strength, Gait, Safety, Therapeutic Exercise, Transfers Treatment Duration: Apr 10, 2019 Frequency: 5 times per week Estimated Hrs Per Day: .25 hour per day Patient and/or Family Agrees t: Yes Safety Risks/Education Patient Education: Gait Training, Transfer Techniques, Safety Issues Teaching Recipient: Patient Teaching Methods: Demonstration, Discussion Response to Teaching: Reinforcement Needed Time/GCodes Time In: 1045 Time Out: 1105 Total Billed Treatment Time: 20 Total Billed Treatment 1 visit FA 20' VENKATESH KEITH PT Apr 04, 2019 11:26
[2019-04-04 12:00] VITALS: BP 129/59
--- NOTE | 2019-04-04 14:44 | NUR ---
"RD ASSESSMENT PMHx: hypercholesterolemia; HTN; DM; CA(skin); s/p knee replacement (03/20/2019) PT INTERACTION: Pt was awake and pleasant during nutrition assessment. Pt states current appetite is getting better, as it had been poor prior to admit. Note avg PO intake of 40% x1d, per chart review. Pt states following a regular diet at home and has no issues with chewing/swallowing food. Pt states no recent issues with n/v/c/d at this time. Note last BM was 04/03 and pt not currently on bowel regimen per chart review. Pt states no recent wt changes. Note unable to determine recent wt hx, per chart review. Pt states current DM management is pretty good. Not unable to determine recent HbA1c, per chart review. ABNORMAL NUTRITION-RELATED LAB VALUES LOW: Ca 8.2; Pro 5.7 HIGH: Cl 111; BUN 21; glu 107 Est. kcal needs: 3724-7095 kcal | 25-30 kcal/kg Est. Pro needs: 85-100 g Pro | 1.2-1.4 g Pro/kg PES STATEMENT: Inadequate oral intake (NI-2.1) related to loss of appetite as evidenced by pt interview | avg PO intake 40% x1d INTERVENTION: Continue with current diet order of Regular diet. Pt may benefit from switching to consistent CHO diet, if blood glucose levels become elevated. Add Glucerna (vary) to meals TID, for increased kcal intake. Provides 220 kcal and 10 g Pro per serving. Will continue to follow and reassess as pt needs and status change. MONITOR/EVALUATE: PO Intake; Plan of Care; Hydration Status; Weight Status; Lab Values Tierra Lewis, MS, RD, LD"
[2019-04-04 16:00] VITALS: BP 129/60
[2019-04-04] MEDS: ENOXAPARIN 40 MG/0.4 ML (LOVENOX) SYR SC SCH (18:10)
[2019-04-04 20:00] VITALS: BP 143/72
[2019-04-04] MEDS: SIMvastatin 20 MG (ZOCOR) TAB PO SCH (20:47)
[2019-04-04] MEDS: MONTELUKAST 10 MG (SINGULAIR) TAB PO SCH (20:48)
[2019-04-04] MEDS ORDERED: MELATONIN 3 MG TABLET PO SCH (21:00)
[2019-04-05 00:39] VITALS: BP 142/66
[2019-04-05 04:00] VITALS: BP 107/53
[2019-04-05 05:19] VITALS: BP 107/53
[2019-04-05] MEDS: CEFEPIME 1,000 MG/SWFI 10 ML IV PUSH IV SCH ×4 (05:41→10:27)
[2019-04-05 06:13] LABS: HEMOGLOBIN 10.2 G/DL (13.3-17.7); MEAN PLATELET VOLUME 10.8 FL (7.4-10.4); WHITE BLOOD COUNT 6.4 10^3/uL (4.3-11.0)
[2019-04-05 06:51] LABS: BUN/CREATININE RATIO 19; CALCIUM 8.7 MG/DL (8.5-10.1); CARBON DIOXIDE 19 MMOL/L (21-32); CHLORIDE 112 MMOL/L (98-107); CREATININE SERUM 0.89 MG/DL (0.60-1.30); GFR ESTIMATED > 60; GLUCOSE 101 MG/DL (70-105); POTASSIUM 3.6 MMOL/L (3.6-5.0); SODIUM 142 MMOL/L (135-145)
[2019-04-05] MEDS: RT-ALBUTEROL/IPRATROPIUM 3 ML (DUONEB) VIAL INH SCH (07:30)
[2019-04-05] MEDS: RT-ADVAIR HFA 115/21 MCG PER PUFF IH SCH (07:31)
[2019-04-05 08:00] VITALS: BP 181/83
--- NOTE | 2019-04-05 08:03 | Diagnostic Imaging Report ---
INDICATION: Pneumonia. Comparison is made with prior examination from 04/03/2019. FINDINGS: Heart size is normal. There is patchy right basilar infiltrate. There is no pleural effusion or pneumothorax. The mediastinum is unremarkable. IMPRESSION: Persistent patchy right basilar infiltrate. Dictated by: Dictated on workstation # [id number]
[2019-04-05] MEDS: LOSARTAN 50 MG (COZAAR) TAB PO SCH (08:57)
[2019-04-05] MEDS: VITAMIN D3 1,000 UNITS (CHOLECALCIFEROL) TABLET PO SCH (08:57)
[2019-04-05] MEDS: HYDROcodone/APAP 5 MG/325 MG (LORTAB) TAB PO PRN (08:57)
[2019-04-05] MEDS: FLUTICASONE NASAL SPRAY (FLONASE) 16 GM BTL NS SCH (08:58)
[2019-04-05] MEDS ORDERED: CEFD300C3 PO (09:12)
--- NOTE | 2019-04-05 09:14 | D/C HH Face to Face Order ---
D/C Face to Face Orders Reconcile Patient Problems Problems Reviewed?: Yes Instructions for Patient Via [place], Patient Instructions/FollowUp: 1 WK SADE OLVERA KEEP NEXT SCHEDULED APPT WITH ORTHOPEDIC SURGEON Physician to follow Patient: SADE Discharge Diet for Home: Regular Diet Patient Problems: HTN, PNEUMONIA, STATUS POST RIGHT KNEE REPLACEMENT, WEAKNESS Patient Data-Allergies,Ht & Wt Patient Allergies: Coded Allergies: Penicillins (Unverified Allergy, Unknown, 09/12/13) erythromycin base (Unverified Allergy, Unknown, 09/12/13) Height (Feet): 5 Height (Inches): 7.00 Weight (Pounds): 183 Home Health Need/Face to Face Date of Face to Face: Apr 05, 2019 Clinical Findings: Generalized weakness and fatigue, Muscle weakness, Pain with ambulation I have seen Pt [id number]: Yes Discharged To: Home Diagnosis/Conditions: PNEUMONIA NAUSEA LEUKOCYTOSIS MILD DEHYDRATION STATUS POST RIGHT KNEE REPLACEMENT HYPERTENSION HYPERLIPIDEMIA Patient is Homebound due to: Muscle weakness, Pain w/ambulation Homebound Status Due to the above stated illness, injury or surgical procedure (medical condition or diagnosis) and associated clinical findings, the patient is magda ebound because of his/her inability to leave home except with aid of a supportive device and/or person AND leaving the home requires a considerable and taxing effort or is medically contraindicated. Pt req the following assistanc: [facility] Nursing Orders Home Health Services Order: Nursing Services, Physical Therapy-Evaluate & Treat Home Health Infusion Therapy Line Start Date: Apr 02, 2019 Therapy Orders Therapy Orders: Physical Therapy Therapy Specific Orders: Increase strength/endurance Certify Stmt I certify that this patient is under my care and that I, a nurse practitioner or a physician; a pediatric assistant working with me, had a face to face encounter that - meets the physician face to face encounter requirements with this patient as dated. JULES STUART MD Apr 05, 2019 09:14
--- NOTE | 2019-04-05 09:15 | Discharge Summary ---
Diagnosis/Chief Complaint Date of Admission Apr 02, 2019 at 15:30 Date of Discharge Admission Diagnosis Admission Diagnosis PNEUMONIA NAUSEA LEUKOCYTOSIS MILD DEHYDRATION STATUS POST RIGHT KNEE REPLACEMENT HYPERTENSION HYPERLIPIDEMIA Discharge Diagnosis PNEUMONIA NAUSEA LEUKOCYTOSIS MILD DEHYDRATION STATUS POST RIGHT KNEE REPLACEMENT HYPERTENSION HYPERLIPIDEMIA Reason Hospital Visit PT IS AN 84 Y/O MALE WHO IS KNOWN TO ME FROM CLINIC. HE PRESENTED TO THE HOSPITAL AFTER HAVING AN ACUTE EPISODE OF FEELING POORLY AND HAVING AN ACUTE EPISODE OF EMESIS AFTER SEEING HIS ORTHOPEDIC SURGEON. HE REPORTS THAT HE DID NOT HAVE CHILLS, FEVER, DIZZINESS, CHEST PAIN, SHORTNESS OF BREATH. HE DENIES SWELLING OR FEVER IN HIS RIGHT KNEE. HE HAD THE KNEE REPLACEMENT ON 03/20/2019. Discharge Summary Discharge Physical Examination Allergies: Coded Allergies: Penicillins (Unverified Allergy, Unknown, 09/12/13) erythromycin base (Unverified Allergy, Unknown, 09/12/13) Vitals & I&Os Vital Signs Date Time Temp Pulse Resp B/P (MAP) Pulse Ox O2 Delivery O2 Flow Rate FiO2 04/05/19 07:32 Nasal Cannula 2.00 04/05/19 07:31 92 04/05/19 05:19 37.1 70 18 107/53 (71) 04/02/19 19:51 21 Hospital Course PNEUMONIA NAUSEA LEUKOCYTOSIS MILD DEHYDRATION STATUS POST RIGHT KNEE REPLACEMENT HYPERTENSION HYPERLIPIDEMIA PNEUMONIA - CONTINUE WITH IV ANTIBIOTICS - CEFEPIME, VANCOMYCIN, WAITING ON CULTURE REPORTS. - REPEAT 2 VIEW CHEST XRAY AGAIN TOMORROW. - TODAY SHOWED SLIGHT INCREASE IN FLUID/PNEUMONIA IN LEFT LOWER LUNG NAUSEA - NOW RESOLVED -PRN ANTI-EMETICS. LEUKOCYTOSIS - HIGHER TODAY THAN ON ADMISSION - CONTINUE TO MONITOR LABS. MILD DEHYDRATION - CONTINUE WITH IV FLUIDS - REPEAT LABS IN MORNING - IV FLUIDS DECREASED FROM ADMISSION RATE OF 150ML/HR TO 100ML/HR, WILL DECREASE DOWN TO 75ML/HR TODAY STATUS POST RIGHT KNEE REPLACEMENT - CPM MACHINE TO BE SET-UP TODAY BY THERAPY STAFF - POLAR ICE BATH FOR KNEE TO BE USED NEEDED -HYDROCODONE PRN FOR PAIN HYPERTENSION - RESTART LISINOPRIL HYPERLIPIDEMIA - RESTART STATIN AND CO-ENZYME Q10 Pending Labs Laboratory Tests 04/05/19 05:36: White Blood Count 6.4, Red Blood Count 3.33, Hemoglobin 10.2, Hematocrit 31, Mean Corpuscular Volume 94, Mean Corpuscular Hemoglobin 31, Mean Corpuscular Hemoglobin Concent 33, Red Cell Distribution Width 13.0, Platelet Count 282, Mean Platelet Volume 10.8, Sodium Level 142, Potassium Level 3.6, Chloride Level 112, Carbon Dioxide Level 19, Anion Gap 11, Blood Urea Nitrogen 17, Creatinine 0.89, Estimat Glomerular Filtration Rate > 60, BUN/Creatinine Ratio 19, Glucose Level 101, Calcium Level 8.7 Discharge Instructions to patient/family Please see electronic discharge instructions given to patient. Discharge Medications Reviewed and agree with Discharge Medication list on patient's Discharge Instruction sheet Clinical Quality Measures DVT/VTE Risk/Contraindication: Risk Factor Score Per Nursin RFS Level Per Nursing on Admit: 4+=Very High JULES STUART MD Apr 05, 2019 09:15
[2019-04-05 10:45] VITALS: BP 181/83
--- NOTE | 2019-04-05 10:45 | NUR ---
TERRY HUANG demonstrates understanding of discharge instructions and accurately returns instructions upon questioning. Copy of Post-Discharge Instructions given to PT. TERRY HUANG is able to manage continuing needs after discharge WITH ASSISTANCE OF HOME HEALTH CARE AND . Patients belongings returned to PT. Patient discharged from [facility] on 04/05/19 at 1045. TERRY HUANG left floor via W/C, accompanied by STAFF AND FAMILY PER AUTO.
--- NOTE | 2019-04-05 11:03 | Physician Query Clarification ---
PQ-Conflicting Diagnosis Admission/Discharge Admission Date: Apr 02, 2019 at 15:30 Discharge Date: The medical record reflects the following clinical scenario: History/Risk Factors: Pneumonia Status post right knee replacement Clinical Findings: WBC 14.6, Bands 4, T 39.2, P 115, Resp 22, BP 122/69, lactic acid 1.41, Blood culture-no growth. Treatment:IV antibiotics-Cefepime and Vancomycin. Question: Do you agree with the impression of Severe Sepsis per Dr. Dueñas. Please document a response in Progress Note or Discharge Summary. 1. Yes 2. No 3. Other, with explanation of clinical findings 4. Clinically undetermined, no explanation for clinical findings. PHYSICIAN RESPONSE Do you agree w/Consulting Dx?: No Please remember a lack of response to the above will prompt a phone page by CDI/Coding staff. In responding to this query, please exercise your independent professional judgment. The purpose of this communication is to more accurately reflect the complexity of your patients condition. The fact that a question is asked does not imply that any particular answer is desired or expected. Thank you for your timely response to this clarification. Requestors name: Sybil Harris [facility] Phone # ext [phone] or [phone] THIS PHYSICIAN QUERY FORM IS A PERMANENT PART OF THE MEDICAL RECORD SYBIL HARRIS Apr 05, 2019 11:03 JULES STUART MD Apr 06, 2019 14:55
--- NOTE | 2019-04-05 11:10 | Physician Query Clarification ---
PQ-Conflicting Diagnosis Admission/Discharge Admission Date: Apr 02, 2019 at 15:30 Discharge Date: The medical record reflects the following clinical scenario: History/Risk Factors: Pneumonia Early dementia Clinical Findings: Early dementia with mild delirium. Treatment:IV antiobiotics for pneumonia. Question: Do you agree with the impression of the Encephalopathy, unspecified per Dr. Dueñas? Please document a response in Progress Note or Discharge Summary. 1. Yes 2. No 3. Other, with explanation of clinical findings 4. Clinically undetermined, no explanation for clinical findings. PHYSICIAN RESPONSE Do you agree w/Consulting Dx?: No Please remember a lack of response to the above will prompt a phone page by CDI/Coding staff. In responding to this query, please exercise your independent professional judgment. The purpose of this communication is to more accurately reflect the complexity of your patients condition. The fact that a question is asked does not imply that any particular answer is desired or expected. Thank you for your timely response to this clarification. Requestors name: Sybil Harris [facility] Phone # ext [phone] or [phone] THIS PHYSICIAN QUERY FORM IS A PERMANENT PART OF THE MEDICAL RECORD SYBIL HARRIS Apr 05, 2019 11:10 JULES STUART MD Apr 06, 2019 14:56
--- NOTE | 2019-04-05 11:15 | Physician Query Clarification ---
PQ-Link Infection to Dev/Proc Admission/Discharge Admission Date: Apr 02, 2019 at 15:30 Discharge Date: The medical record reflects the following clinical scenario: History/Risk Factors: Pneumonia Leukocytosis Recent right knee replacement Clinical Findings:WBC 14.6, Bands 4. T 39.2 , P 115, Resp 22, BP 122/69. Treatment: IV antibiotics-Cefepime and Vancomycin. Question: Can you specify if the Pneumonia is due to/associated with recent knee replacement procedure? Please document a response in Progress Note or Discharge Summary. 1. Yes - [infection] is due to/associated with [device or procedure]. 2. No - [infection] is not due to/associated with [device or procedure]. 3. Other, with explanation of the clinical findings. 4. Clinically undetermined, no explanation for the clinical findings. PHYSICIAN RESPONSE Specify if infection: 1 Please remember a lack of response to the above will prompt a phone page by CDI/Coding staff. In responding to this query, please exercise your independent professional judgment. The purpose of this communication is to more accurately reflect the complexity of your patients condition. The fact that a question is asked does not imply that any particular answer is desired or expected. Thank you for your timely response to this clarification. Requestors name: Sybil Harris [facility] Phone # [phone] or [phone] THIS PHYSICIAN QUERY FORM IS A PERMANENT PART OF THE MEDICAL RECORD SYBIL HARRIS Apr 05, 2019 11:15 JULES STUART MD Apr 06, 2019 14:57
--- OUTSIDE RECORDS SUMMARY | 2019-04-11 03:25 | XMS REPORT | CCD ---
Author Author Cesar Tavares Organization Charlene Hoskins MD, [facility] Address [address] [place] [address] Phone Care Team Providers Care Landscape Supervisor Name Role Phone PP Unavailable CCM Unavailable Summary Purpose Interface Exchange Insurance Providers Payer name Policy type / Coverage type Covered constitution party ID Effective Begin Date Effective End Date WPS Medicare Part B Medicare Part B [id number] Unknown [facility] Part B [id number] Un known Family history Brother Diagnosis Age At Onset Leukemia Unknown Sister Diagnosis Age At Onset Colon cancer Unknown Father Diagnosis Age At Onset Diabetes mellitus Type 2 Unknown Skin cancer Unknown Brother Diagnosis Age At Onset Asthma Unknown Brother Diagnosis Age At Onset Asthma Unknown Social History Social History Element Codes Description Effective Dates Marital status Unknown M arried Ally 08/07/2015 Number of children Unknown 3 08/07/2015 Employment Unknown Retir ed 08/07/[address]: 3740333 Quit over 10 years ago 1970 08/07/[address]: 390833212 Never drinks alcohol 08/07/2015 Allergies, Adverse Reactions, Alerts Substance Reaction Codes Entered Date Inactivated Date Status Penicillin Unknown 08/07/2015 No In active Date Active Past Medical History Illness Codes Condition Status Onset Date Resolved Date Other urticaria ICD-9: 909.3 ICD-10: L50.8 Active 09/06/2018 Unknown Rash and other nonsp ecific skin eruption ICD-9: 782.1 ICD-10: R21 Active 10/04/2016 Unknown Anemia, unspecified ICD- 9: 285.9 ICD-10: D64.9 Active 09/01/2018 Unknown Essential (primary) hypertension ICD-9: 401.1 ICD-10: I10 Active 12/31/2015 Unknown Pain in right knee ICD- 9: 719.46 ICD-10: M25.561 Active 11/12/2015 Unknown Primary generalized (osteo)arthritis ICD-9: 715.09 ICD-10: M15.0 Active 02/19/2016 Unknown Type 2 diabetes nanette itus without complications ICD-9: 250.00 ICD-10: E11.9 Active 02/19/2016 Unknown Pain in left hip ICD-9: 719.45 ICD-10: M25.552 Active 05/22/2018 Unknown Pain in left shoulder ICD-9: 719.41 ICD-10: M25.512 Active 04/26/2018 Unknown Encounter for genera l adult medical examination with abnormal findings ICD-9: V70.0 ICD-10: Z00.01 Active 05/21/2016 Unknown Obstructive sleep ap mikel (adult) (pediatric) ICD-9: 327.23 ICD-10: G47.33 Active 10/22/2016 Unknown Encounter for immuni zation ICD-9: V04.81 ICD-10: Z23 Active 11/10/2015 Unknown Localized edema ICD-9: 782.3 ICD-10: R60.0 Active 10/04/2016 Unknown Mixed hyperlipidemia ICD-9: 272.2 ICD-10: E78.2 Active 02/19/2016 Unknown Diabetes Unknown Active 06/16/2016 Unknow n Hypertension Unknown Active 06/16/2016 Unknow n Elevated prostate sp ecific antigen [PSA] ICD-9: 790.93 ICD-10: R97.2 Active 08/06/2015 Unknown Essential (primary) hypertension ICD-9: 401.9 ICD-10: I10 Active 02/19/2016 Unknown Acute bronchitis, un specified ICD-9: 466.0 ICD-10: J20.9 Active 04/29/2016 Unknown Cough ICD-9: 786.2 ICD-10: R05 Active 12/31/2015 Unknown Other acute sinusitis ICD-9: 461.8 ICD-10: J01.80 Active 04/21/2016 Unknown Other allergic rhinitis ICD-9: 477.8 ICD-10: J30.89 Active 04/21/2016 Unknown Acute bronchitis due to Hemophilus influenzae ICD-9: 466.0 ICD-10: J20.1 Active 12/31/2015 Unknown VAC STREP PNEUMONIAE -FLU ICD-9: V06.6 ICD-10: Z23 Active 11/12/2015 Unknown Problems Condition Codes Effectiv e Dates Condition Status Other urticaria ICD-9: 909.3 ICD-10: L50.8 09/06/2018 Active Rash and other nonsp ecific skin eruption ICD-9: 782.1 ICD-10: R21 10/04/2016 Active Anemia, unspecified ICD- 9: 285.9 ICD-10: D64.9 09/01/2018 Active Essential (primary) hypertension ICD-9: 401.1 ICD-10: I10 12/31/2015 Active Pain in right knee ICD- 9: 719.46 ICD-10: M25.561 11/12/2015 Active Primary generalized (osteo)arthritis ICD-9: 715.09 ICD-10: M15.0 02/19/2016 Active Type 2 diabetes nanette itus without complications ICD-9: 250.00 ICD-10: E11.9 02/19/2016 Active Pain in left hip ICD-9: 719.45 ICD-10: M25.552 05/22/2018 Active Pain in left shoulder ICD-9: 719.41 ICD-10: M25.512 04/26/2018 Active Encounter for genera l adult medical examination with abnormal findings ICD-9: V70.0 ICD-10: Z00.01 05/21/2016 Active Obstructive sleep ap mikel (adult) (pediatric) ICD-9: 327.23 ICD-10: G47.33 10/22/2016 Active Encounter for immuni zation ICD-9: V04.81 ICD-10: Z23 11/10/2015 Active Localized edema ICD-9: 782.3 ICD-10: R60.0 10/04/2016 Active Mixed hyperlipidemia ICD-9: 272.2 ICD-10: E78.2 02/19/2016 Active Diabetes Unknown 06/16/2016 Active Hypertension Unknown 06/16/2016 Active Elevated prostate sp ecific antigen [PSA] ICD-9: 790.93 ICD-10: R97.2 08/06/2015 Active Essential (primary) hypertension ICD-9: 401.9 ICD-10: I10 02/19/2016 Active Acute bronchitis, un specified ICD-9: 466.0 ICD-10: J20.9 04/29/2016 Active Cough ICD-9: 786.2 ICD-10: R05 12/31/2015 Active Other acute sinusitis ICD-9: 461.8 ICD-10: J01.80 04/21/2016 Active Other allergic rhinitis ICD-9: 477.8 ICD-10: J30.89 04/21/2016 Active Acute bronchitis due to Hemophilus influenzae ICD-9: 466.0 ICD-10: J20.1 12/31/2015 Active VAC STREP PNEUMONIAE -FLU ICD-9: V06.6 ICD-10: Z23 11/12/2015 Active Medications Medication Codes Instruc tions Start Date Stop Date Sta tus Fill Instructions montelukast 10 mg ta blet RxNorm: 043538 TAKE 1 TABLET BY MOUT H ONCE DAILY 09/08/2018 No Stop Date Active mupirocin 2 % topica l ointment RxNorm: 181827 1 Application TOP BID to left shoulder spots 09/06/2018 No Stop Date Active prednisone 20 mg tablet RxNorm: 366759 Tablet(s) PO 09/06/2018 No Stop Date Active 60,4 0,20,10 nystatin 100,000 uni t/gram topical cream RxNorm: 176149 1 Application TOP QID to groin area 09/06/2018 No Stop Date Active Kenalog 40 mg/mL maggie pension for injection RxNorm: 1207811 1 Milliliter(s) Inj 08/28/2018 08/28/2018 In active losartan 50 mg tablet RxNorm: 542642 1 Tablet(s) PO daily TAKE 1 TABLET BY MO UTH ONCE DAILY 07/25/2018 01/20/2019 Active meloxicam 7.5 mg tablet RxNorm: 252211 TAKE 1 TABLET BY MOUTH ONCE DAILY 06/01/2018 No Stop Date Active Advair Diskus 250 mc g-50 mcg/dose powder for inhalation RxNorm: 6039426 INHALE 1 DOSE BY MOUTH TWICE DAILY 05/22/2018 No Stop Date Active fluticasone propiona te 50 mcg/actuation nasal spray,suspension RxNorm: 4393136 USE 2 SPRAY(S) IN EACH NOSTRIL ONCE DAILY 05/17/2018 No Stop Date Active simvastatin 20 mg ta blet RxNorm: 419735 TAKE 1 TABLET BY MOUT H ONCE DAILY 05/16/2018 No Stop Date Active Kenalog 40 mg/mL maggie pension for injection RxNorm: 8690008 1 Milliliter(s) Inj 04/26/2018 04/26/2018 In active Kenalog 40 mg/mL maggie pension for injection RxNorm: 5410612 1 Milliliter(s) Inj 04/26/2018 04/26/2018 In active losartan 50 mg tablet RxNorm: 471580 TAKE 1 TABLET BY MOUTH ONCE DAILY 04/24/2018 07/24/2018 In active fluticasone propiona te 50 mcg/actuation nasal spray,suspension RxNorm: 7785897 USE 2 SPRAY(S) IN EACH NOSTRIL ONCE DAILY 03/27/2018 05/16/2018 Inactive Advair Diskus 250 mc g-50 mcg/dose powder for inhalation RxNorm: 5437233 INHALE 1 DOSE BY MOUTH TWICE DAILY 03/21/2018 05/21/2018 Inactive montelukast 10 mg ta blet RxNorm: 658409 TAKE ONE TABLET BY MO UTH ONCE DAILY 03/15/2018 09/07/2018 In active Advair Diskus 250 mc g-50 mcg/dose powder for inhalation RxNorm: 2114392 INHALE 1 DOSE BY MOUTH TWICE DAILY 02/20/2018 03/20/2018 Inactive fluticasone 50 mcg/a ctuation nasal spray,suspension RxNorm: 1662150 USE 2 SPRAY(S) IN EACH NOSTRIL ONCE DAILY 02/08/2018 03/26/2018 Inactive metformin 500 mg tablet RxNorm: 303217 TAKE 1 TABLET BY MOUTH ONCE DAILY 01/16/2018 No Stop Date Active Advair Diskus 250 mc g-50 mcg/dose powder for inhalation RxNorm: 9861084 INHALE 1 DOSE BY MOUTH TWICE DAILY 12/19/2017 02/19/2018 Inactive meloxicam 7.5 mg tablet RxNorm: 051774 TAKE 1 TABLET BY MOUTH ONCE DAILY 12/01/2017 05/31/2018 In active simvastatin 20 mg ta blet RxNorm: 502418 TAKE 1 TABLET BY MOUT H ONCE DAILY 11/14/2017 05/15/2018 In active losartan 50 mg tablet RxNorm: 732765 TAKE ONE TABLET BY MOUTH ONCE DAILY 10/27/2017 04/23/2018 In active Advair Diskus 250 mc g-50 mcg/dose powder for inhalation RxNorm: 3498978 INHALE 1 DOSE BY MOUTH TWICE DAILY 10/19/2017 12/18/2017 Inactive fluticasone 50 mcg/a ctuation nasal spray,suspension RxNorm: 5060123 USE TWO SPRAY(S) IN EACH NOSTRIL ONCE DAILY 10/19/2017 02/07/2018 Inactive Kenalog 40 mg/mL maggie pension for injection RxNorm: 8697289 1 Milliliter(s) Inj 08/25/2017 08/25/2017 In active meloxicam 7.5 mg tablet RxNorm: 651745 TAKE ONE TABLET BY MOUTH ONCE DAILY 06/06/2017 11/30/2017 In active simvastatin 20 mg ta blet RxNorm: 168900 TAKE ONE TABLET BY MO UTH ONCE DAILY 05/17/2017 11/13/2017 In active metformin 500 mg tablet RxNorm: 874513 TAKE ONE TABLET BY MOUTH ONCE DAILY 05/05/2017 01/15/2018 In active Advair Diskus 250 mc g-50 mcg/dose powder for inhalation RxNorm: 6563152 INHALE ONE DOSE BY MOUTH TWICE DAILY 04/19/2017 10/18/2017 Inactive Tamiflu 75 mg capsule RxNorm: 041063 1 Capsule(s) PO daily 03/25/2017 03/24/2017 Inactive Tamiflu 75 mg capsule RxNorm: 269636 1 Capsule(s) PO daily 03/25/2017 03/31/2017 Inactive montelukast 10 mg ta blet RxNorm: 628262 TAKE ONE TABLET BY MO UTH ONCE DAILY 03/21/2017 03/14/2018 In active losartan 50 mg tablet RxNorm: 244093 TAKE ONE TABLET BY MOUTH ONCE DAILY 01/27/2017 10/26/2017 In active fluticasone 50 mcg/a ctuation nasal spray,suspension RxNorm: 6876502 USE TWO SPRAY(S) IN EACH NOSTRIL ONCE DAILY 01/17/2017 10/18/2017 Inactive meloxicam 7.5 mg tablet RxNorm: 710841 TAKE ONE TABLET BY MOUTH ONCE DAILY 12/06/2016 06/03/2017 In active metformin 500 mg tablet RxNorm: 000568 Tablet(s) TAKE ONE TABLET BY MOUTH TWICE DAILY 11/30/2016 11/24/2017 Inactive simvastatin 20 mg ta blet RxNorm: 648100 TAKE ONE TABLET BY MO UTH ONCE DAILY 11/15/2016 05/13/2017 In active Advair Diskus 250 mc g-50 mcg/dose powder for inhalation RxNorm: 6609188 INHALE ONE PUFF BY MOUTH TWICE DAILY 10/22/2016 04/18/2017 Inactive ketoconazole 2 % [facility] RxNorm: 255330 1 Application TOP TIW 10/04/2016 10/17/2016 Inactive fluticasone 50 mcg/a ctuation nasal spray,suspension RxNorm: 2676132 USE TWO SPRAY(S) IN EACH NOSTRIL ONCE DAILY 09/21/2016 11/19/2016 Inactive montelukast 10 mg ta blet RxNorm: 078874 TAKE ONE TABLET BY MO UTH ONCE DAILY 09/21/2016 03/19/2017 In active losartan 50 mg tablet RxNorm: 167357 TAKE ONE TABLET BY MOUTH ONCE DAILY 08/02/2016 01/26/2017 In active metformin 500 mg tablet RxNorm: 590702 TAKE ONE TABLET BY MOUTH TWICE DAILY 07/22/2016 10/19/2016 In active furosemide 20 mg tablet RxNorm: 990712 1 Tablet(s) PO daily as needed for swell ing 07/21/2016 04/18/2018 Inactive meloxicam 7.5 mg tablet RxNorm: 545815 TAKE ONE TABLET BY MOUTH ONCE DAILY 06/08/2016 12/04/2016 In active cefdinir 300 mg capsule RxNorm: 007323 1 Capsule(s) PO BID 04/29/2016 05/05/2016 Inactive prednisone 20 mg tablet RxNorm: 305245 1 Tablet(s) PO BID 04/29/2016 05/03/2016 Inactive Zithromax Z-Sherif 250 mg tablet RxNorm: 430661 1 Tablet(s) PO UD 04/21/2016 04/28/2016 Inactive Kenalog 40 mg/mL maggie pension for injection RxNorm: 8145863 1 Milliliter(s) Inj 04/21/2016 04/21/2016 In active montelukast 10 mg ta blet RxNorm: 322539 TAKE ONE TABLET BY MO UT ONCE DAILY 03/22/2016 09/17/2016 In active fluticasone 50 mcg/a ctuation nasal spray,suspension RxNorm: 5498320 2 [place] NASAL daily each nare 03/15/2016 07/12/2016 Inactive qs metformin 500 mg tablet RxNorm: 692299 1 Tablet(s) PO daily 01/16/2016 2016 Inactive Patient does not need a refill- just upd ate dosing Advair Diskus 250 mc g-50 mcg/dose powder for inhalation RxNorm: 2168490 1 INH BID 01/01/2016 04/29/2016 In active Advair Diskus 250 mc g-50 mcg/dose powder for inhalation RxNorm: 1952209 1 INH daily 01/01/2016 12/31/2015 Inactive metformin 500 mg tablet RxNorm: 107649 1 Tablet(s) PO daily 01/01/2016 01/15/2016 Inactive simvastatin 40 mg ta blet RxNorm: 477884 1 Tablet(s) PO daily 01/01/2016 04/17/2018 Inactive azithromycin 250 mg tablet RxNorm: 731098 1 Tablet(s) PO take t wo pills on day #1, then one pill daily x 4 more days 01/01/2016 02/17/2016 Inactive meloxicam 7.5 mg tablet RxNorm: 272933 1 Tablet(s) PO daily 12/11/2015 06/07/2016 Inactive simvastatin 20 mg ta blet RxNorm: 322793 1 Tablet(s) PO daily 11/21/2015 12/31/2015 Inactive metformin 500 mg tablet RxNorm: 251522 1 Tablet(s) PO BID 11/21/2015 12/31/2015 Inactive Advair Diskus 250 mc g-50 mcg/dose powder for inhalation RxNorm: 8648219 1 INH BID 11/21/2015 12/31/2015 In active montelukast 10 mg ta blet RxNorm: 569977 1 Tablet(s) PO daily 09/25/2015 03/21/2016 Inactive losartan 50 mg tablet RxNorm: 674071 1 Tablet(s) PO daily 09/04/2015 08/01/2016 Inactive Restasis 0.05 % eye drops in a dropperette RxNorm: 830541 1 gtts OPH BID 08/07/2015 No Stop Date Active meloxicam 7.5 mg tablet RxNorm: 716360 1 Tablet(s) PO daily 08/07/2015 09/05/2015 Inactive Kay oral RxNorm: 021634 oral No Start Date Active finasteride 5 mg tablet RxNorm: 527999 1 Tablet(s) PO daily No Start Date Active Zyrtec 10 mg tablet RxNorm: 4102585 1 Tablet(s) PO daily No Start Date Active Co Q-10 200 mg capsule RxNorm: 764102 1 Capsule(s) PO daily No Start Date Active Calcium 500 + D (D3) oral RxNorm: 759960 oral No S tart Date Active simethicone 125 mg c apsule RxNorm: 653206 Capsule(s) PO as needed No Start Date Active Vitamin D3 1,000 uni t tablet RxNorm: 093065 1 Tablet(s) PO daily No Start Date Active omega-3 fatty acids 1,000 mg capsule RxNorm: 4 Capsule(s) PO daily No Start Date Active triamcinolone aceton chasity 0.1 % topical cream RxNorm: 3595703 1 TOP UD No Start Date Active fluticasone 50 mcg/a ctuation nasal spray,suspension RxNorm: 9476994 2 [place] NASAL daily each nare No Start Date 03/14/2016 Inactive losartan 50 mg tablet RxNorm: 793208 1 Tablet(s) PO daily No Start Date 09/03/2015 Inactive metformin 500 mg tablet RxNorm: 168385 1 Tablet(s) PO daily No Start Date 11/20/2015 Inactive simvastatin 40 mg ta blet RxNorm: 323641 1 Tablet(s) PO daily No Start Date 11/20/2015 Inactive furosemide 20 mg tablet RxNorm: 223484 1 Tablet(s) PO daily as needed No Start Date 07/20/2016 Inactive Advair Diskus 250 mc g-50 mcg/dose powder for inhalation RxNorm: 8572721 1 INH daily No Start Date 11/20/2015 Inactive Multiple Vitamin oral RxNorm: 65012 oral No Start Date 12/31/2015 Inactive montelukast 10 mg ta blet RxNorm: 473698 1 Tablet(s) PO daily No Start Date 09/24/2015 Inactive Medication Administered Medication Codes Instruc tions Start Date Status Kenalog 40 mg/mL suspension for injection RxNorm: 3198227 1Milliliter 08/28/2018 N o longer Active Kenalog 40 mg/mL suspension for injection RxNorm: 9859163 1Milliliter 04/26/2018 N o longer Active Kenalog 40 mg/mL suspension for injection RxNorm: 0297856 1Milliliter 04/26/2018 N o longer Active Kenalog 40 mg/mL suspension for injection RxNorm: 7840505 1Milliliter 08/25/2017 N o longer Active Kenalog 40 mg/mL suspension for injection RxNorm: 3467789 1Milliliter 04/21/2016 N o longer Active Immunizations Vaccine Codes Date Status SHINGARIX CVX: 121 06/13 completed Influenza CVX: 141 12/21 completed Influenza CVX: 141 12/21 completed Pneumococcal (Adult) CVX: 133 11/13/2015 completed Influenza CVX: 141 11/10 completed Pneumococcal CVX: 33 completed Zoster CVX: 121 02/14/20 13 completed Assessments Condition Codes Effectiv e Dates Other urticaria ICD-10: L50.8 ICD-9: 909.3 09/06/2018 Rash and other nonspecific skin eruption ICD-10: R21 ICD-9: 782.1 09/06/2018 Anemia, unspecified ICD-10: D64.9 ICD-9: 285.9 09/01/2018 Essential (primary) hypertension ICD -10: I10 ICD-9: 401.1 08/28/2018 Type 2 diabetes mellitus without complications ICD-10: E11.9 ICD-9: 250.00 08/28/2018 Pain in right knee ICD-10: M25.561 ICD-9: 719.46 08/28/2018 Primary generalized (osteo)arthritis ICD-10: M15.0 ICD-9: 715.09 08/28/2018 Pain in left shoulder ICD-10: M25.51 2 ICD-9: 719.41 05/22/2018 Pain in left hip ICD-10: M25.552 ICD-9: 719.45 05/22/2018 Encounter for general adult medical exam ination with abnormal findings ICD-10: Z00.01 ICD-9: V70.0 05/30/2017 Obstructive sleep apnea (adult) (pediatric) ICD-10: G47.33 ICD-9: 327.23 01/21/2017 Encounter for immunization ICD-10: Z 23 ICD-9: V04.81 12/21/2016 Localized edema ICD-10: R60.0 ICD-9: 782.3 10/04/2016 Mixed hyperlipidemia ICD-10: E78.2 ICD-9: 272.2 06/18/2016 Essential (primary) hypertension ICD -10: I10 ICD-9: 401.9 06/16/2016 Elevated prostate specific antigen [PSA] ICD-10: R97.2 ICD-9: 790.93 06/16/2016 Acute bronchitis, unspecified ICD-10 : J20.9 ICD-9: 466.0 04/29/2016 Cough ICD-10: R05 ICD-9: 786.2 04/29/2016 Other allergic rhinitis ICD-10: J30. 89 ICD-9: 477.8 04/21/2016 Other acute sinusitis ICD-10: J01.80 ICD-9: 461.8 04/21/2016 Acute bronchitis due to Hemophilus influenzae ICD-10: J20.1 ICD-9: 466.0 01/01/2016 VAC STREP PNEUMONIAE-FLU ICD-10: Z23 ICD-9: V06.6 11/13/2015 Reason For Visit Reason For Visit Effective Dates Notes rash 09/06/2018 knee pain 08/28/2018 shoulder pain 05/22/2018 shoulder pain 04/26/2018 knee pain 12/21/2017 knee pain 08/25/2017 Annual Medicare Wellness Exam 05/30/2017 hypertension 04/20/2017 hypertension 01/21/2017 vaccination against influenza 12/21/2016 edema 10/22/2016 rash 10/04/2016 hypertension 06/18/2016 Annual Medicare Wellness Exam 05/21/2016 sinus congestion 04/29/2016 sinus congestion 04/21/2016 hypertension 02/20/2016 cough 01/01/2016 knee pain 11/13/2015 vaccination against influenza 11/11/2015 hypertension 11/07/2015 hypertension 08/07/2015 Results Observation Observation Code Item Item Code Result Date Cbc With Differential Ord2 WBC 8.38 K/ul 08/28/2018 Cbc With Differential Ord2 RBC 4.10 M/ul 08/28/2018 Cbc With Differential Ord2 HGB 13.3 g/dl 08/28/2018 Cbc With Differential Ord2 HCT 40.3 % 08/28/2018 Cbc With Differential Ord2 Neut% 59.5 % 08/28/2018 Cbc With Differential Ord2 MCV 98.3 fl 08/28/2018 Cbc With Differential Ord2 Lymph% 24.5 % 08/28/2018 Cbc With Differential Ord2 MCH 32.4 pg 08/28/2018 Cbc With Differential Ord2 [place]% 10.1 % 08/28/2018 Cbc With Differential Ord2 MCHC 33.0 pg 08/28/2018 Cbc With Differential Ord2 Eos% 5.5 % 08/28/2018 Cbc With Differential Ord2 Baso% 0.4 % 08/28/2018 Cbc With Differential Ord2 PLT 245 K/ul 08/28/2018 Cbc With Differential Ord2 Neut ABS# 4.99 K/ul 08/28/2018 Cbc With Differential Ord2 RDW 13.3 % 08/28/2018 Cbc With Differential Ord2 Lymph ABS# 2.05 K/ul 08/28/2018 Cbc With Differential Ord2 [place] ABS# 0.9 K/ul 08/28/2018 Cbc With Differential Ord2 Eos ABS# 0.5 K/ul 08/28/2018 Cbc With Differential Ord2 Baso ABS# 0.0 K/ul 08/28/2018 %Hba1C Pay222 % HbA1c 85190-6 5.8 % 08/28/2018 %Hba1C Htf324 Gluc Ave 120 mg/dL 08/28/2018 Comp Metabolic Afx823 NA 141 mEq/L 08/28/2018 Comp Metabolic Vzl421 K 4.3 mEq/L 08/28/2018 Comp Metabolic Xte889 CL 105 mEq/L 08/28/2018 Comp Metabolic Hgr300 CO2 28.0 mEq/L 08/28/2018 Comp Metabolic Gyq473 AN ION GAP 12 08/28/2018 Comp Metabolic Kwd930 GL UCOSE 101 mg/dL 08/28/2018 Comp Metabolic Bpz999 Cr eat 0.9 mg/dL 08/28/2018 Comp Metabolic Ihr610 eG FR 89 ml/min/1.73m2 08/28 Comp Metabolic Pcw105 BUN 26 mg/dL 08/28/2018 Comp Metabolic Ufl668 B/ C Ratio 29.9 Ratio 08/28/2018 Comp Metabolic Avt943 CA LCIUM 9.4 mg/dL 08/28/2018 Comp Metabolic Qpp283 AL K PHOS 60 U/L 08/28/2018 Comp Metabolic Mvn078 T(SGOT) 17 U/L 08/28/2018 Comp Metabolic Jbi778 AL T(SGPT) 27 U/L 08/28/2018 Comp Metabolic Pjf328 BI LI T 0.6 mg/dL 08/28/2018 Comp Metabolic Ldc970 AL BUMIN 4.2 g/dL 08/28/2018 Comp Metabolic Ynp149 TP RO 6.6 g/dL 08/28/2018 Comp Metabolic Cxg304 GL OB 2.4 g/dL 08/28/2018 Comp Metabolic Prb662 A/ G Ratio 1.7 Ratio 08/28/2018 Comp Metabolic Ydd572 Os mo 286 mOsmo 08/28/2018 %Hba1C Xnd954 % HbA1c 84419-2 6.0 % 12/21/2017 %Hba1C Aem148 Gluc Ave 126 mg/dL 12/21/2017 %Hba1C Ehr139 % HbA1c 88294-3 6.2 % 04/20/2017 %Hba1C Gxq018 Gluc Ave 131 mg/dL 04/20/2017 Cbc With Differential Ord2 WBC 6.58 K/ul 04/20/2017 Cbc With Differential Ord2 RBC 4.21 M/ul 04/20/2017 Cbc With Differential Ord2 HGB 13.4 g/dl 04/20/2017 Cbc With Differential Ord2 HCT 39.7 % 04/20/2017 Cbc With Differential Ord2 Neut% 59.5 % 04/20/2017 Cbc With Differential Ord2 MCV 94.3 fl 04/20/2017 Cbc With Differential Ord2 Lymph% 27.7 % 04/20/2017 Cbc With Differential Ord2 MCH 31.8 pg 04/20/2017 Cbc With Differential Ord2 [place]% 9.3 % 04/20/2017 Cbc With Differential Ord2 MCHC 33.8 pg 04/20/2017 Cbc With Differential Ord2 Eos% 3.2 % 04/20/2017 Cbc With Differential Ord2 PLT 236 K/ul 04/20/2017 Cbc With Differential Ord2 Baso% 0.3 % 04/20/2017 Cbc With Differential Ord2 RDW 13.3 % 04/20/2017 Cbc With Differential Ord2 Neut ABS# 3.92 K/ul 04/20/2017 Cbc With Differential Ord2 Lymph ABS# 1.82 K/ul 04/20/2017 Cbc With Differential Ord2 [place] ABS# 0.6 K/ul 04/20/2017 Cbc With Differential Ord2 Eos ABS# 0.2 K/ul 04/20/2017 Cbc With Differential Ord2 Baso ABS# 0.0 K/ul 04/20/2017 Comp Metabolic Crm969 NA 141 mEq/L 04/20/2017 Comp Metabolic Fjo962 K 4.5 mEq/L 04/20/2017 Comp Metabolic Fpu560 CL 106 mEq/L 04/20/2017 Comp Metabolic Bji116 CO2 27.0 mEq/L 04/20/2017 Comp Metabolic Ubf550 AN ION GAP 13 04/20/2017 Comp Metabolic Hvt602 GL UCOSE 109 mg/dL 04/20/2017 Comp Metabolic Jrn372 Cr eat 1.0 mg/dL 04/20/2017 Comp Metabolic Tjf396 eG FR 81 ml/min/1.73m2 04/20 Comp Metabolic Pbx678 BUN 23 mg/dL 04/20/2017 Comp Metabolic Crs941 B/ C Ratio 24.2 Ratio 04/20/2017 Comp Metabolic Htg824 CA LCIUM 9.3 mg/dL 04/20/2017 Comp Metabolic Bai672 AL K PHOS 82 U/L 04/20/2017 Comp Metabolic Cmn539 T(SGOT) 22 U/L 04/20/2017 Comp Metabolic Hkk599 AL T(SGPT) 24 U/L 04/20/2017 Comp Metabolic Ykm621 BI LI T 0.4 mg/dL 04/20/2017 Comp Metabolic Ddl762 AL BUMIN 4.3 g/dL 04/20/2017 Comp Metabolic Wfx289 TP RO 6.8 g/dL 04/20/2017 Comp Metabolic Vim177 GL OB 2.5 g/dL 04/20/2017 Comp Metabolic Bra913 A/ G Ratio 1.7 Ratio 04/20/2017 Comp Metabolic Jpo685 Os mo 286 mOsmo 04/20/2017 %Hba1C Mqj158 % HbA1c 18640-2 5.8 % 10/22/2016 %Hba1C Wvh193 Gluc Ave 120 mg/dL 10/22/2016 Cbc With Differential Ord2 WBC 7.27 K/ul 10/22/2016 Cbc With Differential Ord2 RBC 4.09 M/ul 10/22/2016 Cbc With Differential Ord2 HGB 13.3 g/dl 10/22/2016 Cbc With Differential Ord2 HCT 39.4 % 10/22/2016 Cbc With Differential Ord2 Neut% 60.6 % 10/22/2016 Cbc With Differential Ord2 MCV 96.3 fl 10/22/2016 Cbc With Differential Ord2 Lymph% 25.4 % 10/22/2016 Cbc With Differential Ord2 MCH 32.5 pg 10/22/2016 Cbc With Differential Ord2 [place]% 10.3 % 10/22/2016 Cbc With Differential Ord2 MCHC 33.8 pg 10/22/2016 Cbc With Differential Ord2 Eos% 3.4 % 10/22/2016 Cbc With Differential Ord2 PLT 227 K/ul 10/22/2016 Cbc With Differential Ord2 Baso% 0.3 % 10/22/2016 Cbc With Differential Ord2 RDW 13.4 % 10/22/2016 Cbc With Differential Ord2 Neut ABS# 4.40 K/ul 10/22/2016 Cbc With Differential Ord2 Lymph ABS# 1.85 K/ul 10/22/2016 Cbc With Differential Ord2 [place] ABS# 0.8 K/ul 10/22/2016 Cbc With Differential Ord2 Eos ABS# 0.3 K/ul 10/22/2016 Cbc With Differential Ord2 Baso ABS# 0.0 K/ul 10/22/2016 Comp Metabolic Hbh540 NA 141 mEq/L 10/22/2016 Comp Metabolic Kji936 K 4.4 mEq/L 10/22/2016 Comp Metabolic Uco824 CL 105 mEq/L 10/22/2016 Comp Metabolic Aqx611 CO2 27.0 mEq/L 10/22/2016 Comp Metabolic Zpd545 AN ION GAP 13 10/22/2016 Comp Metabolic Jgw337 GL UCOSE 103 mg/dL 10/22/2016 Comp Metabolic Xpm602 Cr eat 1.0 mg/dL 10/22/2016 Comp Metabolic Iue594 eG FR 76 ml/min/1.73m2 10/22 Comp Metabolic Chc797 BUN 27 mg/dL 10/22/2016 Comp Metabolic Fic151 B/ C Ratio 27.0 Ratio 10/22/2016 Comp Metabolic Mru891 CA LCIUM 9.3 mg/dL 10/22/2016 Comp Metabolic Dyc337 AL K PHOS 72 U/L 10/22/2016 Comp Metabolic Ciu614 T(SGOT) 23 U/L 10/22/2016 Comp Metabolic Ciu250 AL T(SGPT) 26 U/L 10/22/2016 Comp Metabolic Gmb293 BI LI T 0.4 mg/dL 10/22/2016 Comp Metabolic Die603 AL BUMIN 4.2 g/dL 10/22/2016 Comp Metabolic Brx778 TP RO 6.7 g/dL 10/22/2016 Comp Metabolic Bee120 GL OB 2.5 g/dL 10/22/2016 Comp Metabolic Pye056 A/ G Ratio 1.6 Ratio 10/22/2016 Comp Metabolic Mvo651 Os mo 287 mOsmo 10/22/2016 Comp Metabolic Zmb991 NA 143 mEq/L 06/17/2016 Comp Metabolic Yjz991 K 4.1 mEq/L 06/17/2016 Comp Metabolic Ctp004 CL 108 mEq/L 06/17/2016 Comp Metabolic Slm931 CO2 28.0 mEq/L 06/17/2016 Comp Metabolic Hwo413 AN ION GAP 11 06/17/2016 Comp Metabolic Iqy695 GL UCOSE 106 mg/dL 06/17/2016 Comp Metabolic Grg161 Cr eat 0.9 mg/dL 06/17/2016 Comp Metabolic Ids749 eG FR 92 ml/min/1.73m2 06/17 Comp Metabolic Vij902 BUN 22 mg/dL 06/17/2016 Comp Metabolic Cwi012 B/ C Ratio 25.9 Ratio 06/17/2016 Comp Metabolic Qqt112 CA LCIUM 8.8 mg/dL 06/17/2016 Comp Metabolic Ork809 AL K PHOS 55 U/L 06/17/2016 Comp Metabolic Ahm774 T(SGOT) 21 U/L 06/17/2016 Comp Metabolic Zle317 AL T(SGPT) 24 U/L 06/17/2016 Comp Metabolic Ncu475 BI LI T 0.6 mg/dL 06/17/2016 Comp Metabolic Wax785 AL BUMIN 4.0 g/dL 06/17/2016 Comp Metabolic Epe012 TP RO 6.2 g/dL 06/17/2016 Comp Metabolic Omt421 GL OB 2.2 g/dL 06/17/2016 Comp Metabolic Ror379 A/ G Ratio 1.8 Ratio 06/17/2016 Comp Metabolic Yzp255 Os mo 289 mOsmo 06/17/2016 Lipid Ord30 CHOL 163 mg/dL 06/17/2016 Lipid Ord30 HDL 54.0 mg/dl 06/17/2016 Lipid Ord30 TRIG 133 mg/dL 06/17/2016 Lipid Ord30 LDL 82 mg/dL 06/17/2016 Lipid Ord30 C/HDL 3.0 Ratio 06/17/2016 %Hba1C Gng429 % HbA1c 87087-1 6.0 % 06/17/2016 %Hba1C Zbf614 Gluc Ave 126 mg/dL 06/17/2016 Total Psa Ord10 PSA 0.00 ng/mL 06/17/2016 Cbc With Differential Ord2 WBC 5.78 K/ul 06/17/2016 Cbc With Differential Ord2 RBC 3.98 M/ul 06/17/2016 Cbc With Differential Ord2 HGB 13.0 g/dl 06/17/2016 Cbc With Differential Ord2 HCT 38.0 % 06/17/2016 Cbc With Differential Ord2 Neut% 56.2 % 06/17/2016 Cbc With Differential Ord2 MCV 95.5 fl 06/17/2016 Cbc With Differential Ord2 Lymph% 29.6 % 06/17/2016 Cbc With Differential Ord2 MCH 32.7 pg 06/17/2016 Cbc With Differential Ord2 [place]% 10.7 % 06/17/2016 Cbc With Differential Ord2 MCHC 34.2 pg 06/17/2016 Cbc With Differential Ord2 Eos% 3.3 % 06/17/2016 Cbc With Differential Ord2 PLT 211 K/ul 06/17/2016 Cbc With Differential Ord2 Baso% 0.2 % 06/17/2016 Cbc With Differential Ord2 RDW 14.1 % 06/17/2016 Cbc With Differential Ord2 Neut ABS# 3.25 K/ul 06/17/2016 Cbc With Differential Ord2 Lymph ABS# 1.71 K/ul 06/17/2016 Cbc With Differential Ord2 [place] ABS# 0.6 K/ul 06/17/2016 Cbc With Differential Ord2 Eos ABS# 0.2 K/ul 06/17/2016 Cbc With Differential Ord2 Baso ABS# 0.0 K/ul 06/17/2016 Tsh Ord6 hTSH II 2.91 uIU/mL 06/17/2016 Tsh Ord6 hTSH II 2.45 uIU/mL 02/19/2016 %Hba1C Gfr624 % HbA1c 30380-3 5.8 % 02/19/2016 %Hba1C Xmt777 Gluc Ave 120 mg/dL 02/19/2016 Comp Metabolic Hjp645 NA 141 mEq/L 02/19/2016 Comp Metabolic Mmg427 K 4.2 mEq/L 02/19/2016 Comp Metabolic Old070 CL 107 mEq/L 02/19/2016 Comp Metabolic Aaa182 CO2 29.0 mEq/L 02/19/2016 Comp Metabolic Apt172 AN ION GAP 9 02/19/2016 Comp Metabolic Kqm071 GL UCOSE 106 mg/dL 02/19/2016 Comp Metabolic Nda219 Cr eat 0.9 mg/dL 02/19/2016 Comp Metabolic Sgc972 eG FR 90 ml/min/1.73m2 02/18 Comp Metabolic Fyb125 BUN 24 mg/dL 02/19/2016 Comp Metabolic Xlc028 B/ C Ratio 27.6 Ratio 02/19/2016 Comp Metabolic Xbm277 CA LCIUM 9.1 mg/dL 02/19/2016 Comp Metabolic Dcq649 AL K PHOS 67 U/L 02/19/2016 Comp Metabolic Wqv064 T(SGOT) 25 U/L 02/19/2016 Comp Metabolic Nkz924 AL T(SGPT) 31 U/L 02/19/2016 Comp Metabolic Oou526 BI LI T 0.6 mg/dL 02/19/2016 Comp Metabolic Kqd503 AL BUMIN 4.1 g/dL 02/19/2016 Comp Metabolic Eqo362 TP RO 6.5 g/dL 02/19/2016 Comp Metabolic Rnm855 GL OB 2.4 g/dL 02/19/2016 Comp Metabolic Vcu790 A/ G Ratio 1.7 Ratio 02/19/2016 Comp Metabolic Ljb106 Os mo 286 mOsmo 02/19/2016 Cbc With Differential Ord2 WBC 5.92 K/ul 02/19/2016 Cbc With Differential Ord2 RBC 4.13 M/ul 02/19/2016 Cbc With Differential Ord2 HGB 13.1 g/dl 02/19/2016 Cbc With Differential Ord2 HCT 39.3 % 02/19/2016 Cbc With Differential Ord2 Neut% 57.2 % 02/19/2016 Cbc With Differential Ord2 MCV 95.2 fl 02/19/2016 Cbc With Differential Ord2 Lymph% 26.9 % 02/19/2016 Cbc With Differential Ord2 MCH 31.7 pg 02/19/2016 Cbc With Differential Ord2 [place]% 10.5 % 02/19/2016 Cbc With Differential Ord2 MCHC 33.3 pg 02/19/2016 Cbc With Differential Ord2 Eos% 5.1 % 02/19/2016 Cbc With Differential Ord2 PLT 239 K/ul 02/19/2016 Cbc With Differential Ord2 Baso% 0.3 % 02/19/2016 Cbc With Differential Ord2 RDW 13.4 % 02/19/2016 Cbc With Differential Ord2 Neut ABS# 3.39 K/ul 02/19/2016 Cbc With Differential Ord2 Lymph ABS# 1.59 K/ul 02/19/2016 Cbc With Differential Ord2 [place] ABS# 0.6 K/ul 02/19/2016 Cbc With Differential Ord2 Eos ABS# 0.3 K/ul 02/19/2016 Cbc With Differential Ord2 Baso ABS# 0.0 K/ul 02/19/2016 Lipid Ord30 CHOL 174 mg/dL 02/19/2016 Lipid Ord30 HDL 54.0 mg/dl 02/19/2016 Lipid Ord30 TRIG 110 mg/dL 02/19/2016 Lipid Ord30 LDL 98 mg/dL 02/19/2016 Lipid Ord30 C/HDL 3.2 Ratio 02/19/2016 %Hba1C Myz542 % HbA1c 94046-8 6.0 % 11/11/2015 %Hba1C Zeo334 Gluc Ave 126 mg/dL 11/11/2015 %Hba1C Yzu942 % HbA1c 76288-5 6.0 % 11/07/2015 %Hba1C Voc285 Gluc Ave 126 mg/dL 11/07/2015 Cbc With Differential Ord2 WBC 5.97 K/ul 11/06/2015 Cbc With Differential Ord2 RBC 4.19 M/ul 11/06/2015 Cbc With Differential Ord2 HGB 13.4 g/dl 11/06/2015 Cbc With Differential Ord2 HCT 39.3 % 11/06/2015 Cbc With Differential Ord2 Neut% 55.0 % 11/06/2015 Cbc With Differential Ord2 MCV 93.8 fl 11/06/2015 Cbc With Differential Ord2 Lymph% 30.0 % 11/06/2015 Cbc With Differential Ord2 MCH 32.0 pg 11/06/2015 Cbc With Differential Ord2 [place]% 9.5 % 11/06/2015 Cbc With Differential Ord2 MCHC 34.1 pg 11/06/2015 Cbc With Differential Ord2 Eos% 5.2 % 11/06/2015 Cbc With Differential Ord2 PLT 206 K/ul 11/06/2015 Cbc With Differential Ord2 Baso% 0.3 % 11/06/2015 Cbc With Differential Ord2 RDW 14.1 % 11/06/2015 Cbc With Differential Ord2 Neut ABS# 3.28 K/ul 11/06/2015 Cbc With Differential Ord2 Lymph ABS# 1.79 K/ul 11/06/2015 Cbc With Differential Ord2 [place] ABS# 0.6 K/ul 11/06/2015 Cbc With Differential Ord2 Eos ABS# 0.3 K/ul 11/06/2015 Cbc With Differential Ord2 Baso ABS# 0.0 K/ul 11/06/2015 Comp Metabolic Epm277 NA 141 mEq/L 11/06/2015 Comp Metabolic Rsw764 K 4.3 mEq/L 11/06/2015 Comp Metabolic Gln977 CL 107 mEq/L 11/06/2015 Comp Metabolic Mwz200 CO2 28.0 mEq/L 11/06/2015 Comp Metabolic Sni275 AN ION GAP 10 11/06/2015 Comp Metabolic Lss945 GL UCOSE 117 mg/dL 11/06/2015 Comp Metabolic Cfs310 Cr eat 0.9 mg/dL 11/06/2015 Comp Metabolic Zfo789 eG FR 88 ml/min/1.73m2 11/05 Comp Metabolic Cto068 BUN 22 mg/dL 11/06/2015 Comp Metabolic Loa892 B/ C Ratio 25.0 Ratio 11/06/2015 Comp Metabolic Shm486 CA LCIUM 9.1 mg/dL 11/06/2015 Comp Metabolic Dyd960 AL K PHOS 59 U/L 11/06/2015 Comp Metabolic Xen260 T(SGOT) 23 U/L 11/06/2015 Comp Metabolic Whu846 AL T(SGPT) 26 U/L 11/06/2015 Comp Metabolic Kwv109 BI LI T 0.6 mg/dL 11/06/2015 Comp Metabolic Xtl879 AL BUMIN 4.0 g/dL 11/06/2015 Comp Metabolic Abu552 TP RO 6.4 g/dL 11/06/2015 Comp Metabolic Qtt015 GL OB 2.4 g/dL 11/06/2015 Comp Metabolic Ssv071 A/ G Ratio 1.7 Ratio 11/06/2015 Comp Metabolic Cyz837 Os mo 286 mOsmo 11/06/2015 Tsh Ord6 hTSH II 2.59 uIU/mL 11/06/2015 Lipid Ord30 CHOL 159 mg/dL 11/06/2015 Lipid Ord30 HDL 42.0 mg/dl 11/06/2015 Lipid Ord30 TRIG 129 mg/dL 11/06/2015 Lipid Ord30 LDL 91 mg/dL 11/06/2015 Lipid Ord30 C/HDL 3.8 Ratio 11/06/2015 Comp Metabolic Tfg234 NA 140 mEq/L 08/08/2015 Comp Metabolic Phi006 K 4.0 mEq/L 08/08/2015 Comp Metabolic Piw551 CL 108 mEq/L 08/08/2015 Comp Metabolic Fvy238 CO2 25.0 mEq/L 08/08/2015 Comp Metabolic Rry941 AN ION GAP 11 08/08/2015 Comp Metabolic Zmy924 GL UCOSE 100 mg/dL 08/08/2015 Comp Metabolic Xor783 Cr eat 0.9 mg/dL 08/08/2015 Comp Metabolic Ael940 eG FR 82 ml/min/1.73m2 08/07 Comp Metabolic Fax154 BUN 19 mg/dL 08/08/2015 Comp Metabolic Kwg937 B/ C Ratio 20.2 Ratio 08/08/2015 Comp Metabolic Pbn298 CA LCIUM 8.5 mg/dL 08/08/2015 Comp Metabolic Fsk241 AL K PHOS 56 U/L 08/08/2015 Comp Metabolic Tol638 T(SGOT) 18 U/L 08/08/2015 Comp Metabolic Izs195 AL T(SGPT) 17 U/L 08/08/2015 Comp Metabolic Qqr589 BI LI T 0.7 mg/dL 08/08/2015 Comp Metabolic Amx414 AL BUMIN 3.9 g/dL 08/08/2015 Comp Metabolic Tfy734 TP RO 6.2 g/dL 08/08/2015 Comp Metabolic Luz738 GL OB 2.3 g/dL 08/08/2015 Comp Metabolic Wqt693 A/ G Ratio 1.7 Ratio 08/08/2015 Comp Metabolic Bbw722 Os mo 282 mOsmo 08/08/2015 Tsh Ord6 hTSH II 3.19 uIU/mL 08/08/2015 %Hba1C Bce622 % HbA1c 73632-7 5.7 % 08/08/2015 %Hba1C Les289 Gluc Ave 117 mg/dL 08/08/2015 Cbc With Differential Ord2 WBC 5.14 K/ul 08/08/2015 Cbc With Differential Ord2 RBC 4.27 M/ul 08/08/2015 Cbc With Differential Ord2 HGB 13.4 g/dl 08/08/2015 Cbc With Differential Ord2 HCT 40.0 % 08/08/2015 Cbc With Differential Ord2 Neut% 55.0 % 08/08/2015 Cbc With Differential Ord2 MCV 93.7 fl 08/08/2015 Cbc With Differential Ord2 Lymph% 29.4 % 08/08/2015 Cbc With Differential Ord2 MCH 31.4 pg 08/08/2015 Cbc With Differential Ord2 [place]% 10.9 % 08/08/2015 Cbc With Differential Ord2 MCHC 33.5 pg 08/08/2015 Cbc With Differential Ord2 Eos% 4.3 % 08/08/2015 Cbc With Differential Ord2 PLT 205 K/ul 08/08/2015 Cbc With Differential Ord2 Baso% 0.4 % 08/08/2015 Cbc With Differential Ord2 RDW 13.6 % 08/08/2015 Cbc With Differential Ord2 Neut ABS# 2.83 K/ul 08/08/2015 Cbc With Differential Ord2 Lymph ABS# 1.51 K/ul 08/08/2015 Cbc With Differential Ord2 [place] ABS# 0.6 K/ul 08/08/2015 Cbc With Differential Ord2 Eos ABS# 0.2 K/ul 08/08/2015 Cbc With Differential Ord2 Baso ABS# 0.0 K/ul 08/08/2015 Lipid Ord30 CHOL 127 mg/dL 08/08/2015 Lipid Ord30 HDL 34.0 mg/dl 08/08/2015 Lipid Ord30 TRIG 93 mg/dL 08/08/2015 Lipid Ord30 LDL 74 mg/dL 08/08/2015 Lipid Ord30 C/HDL 3.7 Ratio 08/08/2015 Review of Systems System Result Effective Dates Constitutional No recent illness 09/06/2018 Constitutional No chills 09/06/2018 Constitutional No diaphoresis 09/06/2018 Constitutional No fever 09/06/2018 Eyes No eye erythema Ears/Nose/Throat/Neck No nasal discharge 09/06/2018 Cardiovascular No chest pain/pressure 09/06/2018 Respiratory No cough Neurologic No alteration of consciousness 09/06/2018 Neurologic No mental status change 09/06/2018 Dermatologic rash 2018 Constitutional No recent illness 08/28/2018 Constitutional No chills 08/28/2018 Constitutional No fever 08/28/2018 Eyes No eye erythema Ears/Nose/Throat/Neck No nasal discharge 08/28/2018 Cardiovascular No chest pain/pressure 08/28/2018 Cardiovascular No dyspnea 08/28/2018 Respiratory No cough Respiratory No dyspnea 0 08/28/2018 Musculoskeletal joint complaint 08/28/2018 Neurologic No alteration of consciousness 08/28/2018 Neurologic No mental status change 08/28/2018 Musculoskeletal arthralgia(s) 08/28/2018 Constitutional No recent illness 05/22/2018 Constitutional No anorexia 05/22/2018 Constitutional No night sweats 05/22/2018 Constitutional No chills 05/22/2018 Constitutional No diaphoresis 05/22/2018 Constitutional No fatigue 05/22/2018 Constitutional No fever 05/22/2018 Constitutional No insomnia 05/22/2018 Constitutional No malaise 05/22/2018 Constitutional No weight loss 05/22/2018 Constitutional No weight gain 05/22/2018 Constitutional No recent illness 04/26/2018 Constitutional No chills 04/26/2018 Constitutional No fever 04/26/2018 Eyes No eye erythema Ears/Nose/Throat/Neck No nasal discharge 04/26/2018 Cardiovascular No chest pain/pressure 04/26/2018 Cardiovascular No dyspnea 04/26/2018 Respiratory No cough Respiratory No dyspnea 0 04/26/2018 Neurologic No alteration of consciousness 04/26/2018 Neurologic No mental status change 04/26/2018 Musculoskeletal shoulder pain 04/26/2018 Musculoskeletal joint complaint 04/26/2018 Musculoskeletal arthralgia(s) 04/26/2018 Constitutional No recent illness 12/21/2017 Constitutional No chills 12/21/2017 Constitutional No diaphoresis 12/21/2017 Constitutional No fever 12/21/2017 Eyes No eye erythema 08/2017 Ears/Nose/Throat/Neck No nasal allergies 12/21/2017 Ears/Nose/Throat/Neck No nasal discharge 12/21/2017 Cardiovascular No chest pain/pressure 12/21/2017 Cardiovascular No dyspnea 12/21/2017 Respiratory No chest congestion 12/21/2017 Respiratory No cough 08/2017 Gastrointestinal No abdominal pain 12/21/2017 Gastrointestinal No constipation 12/21/2017 Gastrointestinal No diarrhea 12/21/2017 Gastrointestinal No nausea 12/21/2017 Gastrointestinal No vomiting 12/21/2017 Musculoskeletal joint complaint 12/21/2017 Dermatologic No rash 08/2017 Neurologic No alteration of consciousness 12/21/2017 Neurologic No mental status change 12/21/2017 Constitutional No recent illness 08/25/2017 Constitutional No chills 08/25/2017 Constitutional No diaphoresis 08/25/2017 Constitutional No fever 08/25/2017 Eyes No eye erythema 01/2018 Ears/Nose/Throat/Neck No nasal discharge 08/25/2017 Ears/Nose/Throat/Neck No nasal allergies 08/25/2017 Cardiovascular No chest pain/pressure 08/25/2017 Cardiovascular No dyspnea 08/25/2017 Respiratory No cough 01/2018 Respiratory No chest congestion 08/25/2017 Gastrointestinal No abdominal pain 08/25/2017 Gastrointestinal No constipation 08/25/2017 Gastrointestinal No diarrhea 08/25/2017 Gastrointestinal No vomiting 08/25/2017 Gastrointestinal No nausea 08/25/2017 Musculoskeletal joint complaint 08/25/2017 Dermatologic No rash 01/2018 Neurologic No alteration of consciousness 08/25/2017 Neurologic No mental status change 08/25/2017 Constitutional No recent illness 05/30/2017 Constitutional No chills 05/30/2017 Constitutional No diaphoresis 05/30/2017 Constitutional No fever 05/30/2017 Eyes No eye erythema Ears/Nose/Throat/Neck No nasal discharge 05/30/2017 Cardiovascular No chest pain/pressure 05/30/2017 Cardiovascular No dyspnea 05/30/2017 Respiratory No cough Respiratory No dyspnea 0 05/30/2017 Neurologic No alteration of consciousness 05/30/2017 Neurologic No mental status change 05/30/2017 Eyes No eye discharge Eyes No eye erythema 08/2017 Cardiovascular No chest pain/pressure 04/20/2017 Cardiovascular No dyspnea 04/20/2017 Respiratory No productive sputum 04/20/2017 Respiratory No cough 08/2017 Gastrointestinal No abdominal pain 04/20/2017 Gastrointestinal No constipation 04/20/2017 Gastrointestinal No diarrhea 04/20/2017 Dermatologic No rash 08/2017 Neurologic No alteration of consciousness 04/20/2017 Constitutional No recent illness 04/20/2017 Constitutional No chills 04/20/2017 Constitutional No diaphoresis 04/20/2017 Constitutional No fever 04/20/2017 Ears/Nose/Throat/Neck No nasal discharge 04/20/2017 Gastrointestinal No vomiting 04/20/2017 Gastrointestinal No nausea 04/20/2017 Musculoskeletal arthralgia(s) 04/20/2017 Neurologic No mental status change 04/20/2017 Constitutional No recent illness 01/21/2017 Constitutional No anorexia 01/21/2017 Constitutional No chills 01/21/2017 Constitutional No diaphoresis 01/21/2017 Constitutional No fatigue 01/21/2017 Constitutional No fever 01/21/2017 Constitutional No insomnia 01/21/2017 Constitutional No malaise 01/21/2017 Constitutional No weight loss 01/21/2017 Constitutional No weight gain 01/21/2017 Eyes No eye discharge Eyes No eye erythema 09/2016 Ears/Nose/Throat/Neck No dizziness 01/21/2017 Ears/Nose/Throat/Neck No headache 01/21/2017 Ears/Nose/Throat/Neck No oral lesion 01/21/2017 Cardiovascular No chest pain/pressure 01/21/2017 Cardiovascular No dyspnea 01/21/2017 Respiratory No productive sputum 01/21/2017 Respiratory No cough 09/2016 Gastrointestinal No abdominal pain 01/21/2017 Gastrointestinal No constipation 01/21/2017 Gastrointestinal No diarrhea 01/21/2017 Genitourinary/Nephrology No dysuria 01/21/2017 Genitourinary/Nephrology urinary inc ontinence 01/21/2017 Musculoskeletal joint complaint 01/21/2017 Dermatologic No rash 09/2016 Neurologic No alteration of consciousness 01/21/2017 Psychiatric No anxiety 1 03/24/2016 Endocrine No dry or coarse skin 01/21/2017 Hematologic/Lymphatic No abnormal ec chymoses 01/21/2017 Hematologic/Lymphatic No abnormal bl eeding and bruising 01/21/2017 Constitutional No recent illness 10/22/2016 Constitutional No anorexia 10/22/2016 Constitutional No chills 10/22/2016 Constitutional No diaphoresis 10/22/2016 Constitutional No fatigue 10/22/2016 Constitutional No fever 10/22/2016 Constitutional No insomnia 10/22/2016 Constitutional No malaise 10/22/2016 Constitutional No weight loss 10/22/2016 Constitutional No weight gain 10/22/2016 Eyes No eye discharge Eyes No eye erythema 09/2016 Ears/Nose/Throat/Neck No dizziness 10/22/2016 Ears/Nose/Throat/Neck No headache 10/22/2016 Ears/Nose/Throat/Neck No oral lesion 10/22/2016 Cardiovascular No chest pain/pressure 10/22/2016 Cardiovascular No dyspnea 10/22/2016 Respiratory No productive sputum 10/22/2016 Respiratory No cough 09/2016 Gastrointestinal No abdominal pain 10/22/2016 Gastrointestinal No constipation 10/22/2016 Gastrointestinal No diarrhea 10/22/2016 Genitourinary/Nephrology No dysuria 10/22/2016 Musculoskeletal joint complaint 10/22/2016 Dermatologic No rash 09/2016 Neurologic No alteration of consciousness 10/22/2016 Psychiatric No anxiety 0 10/22/2016 Endocrine No dry or coarse skin 10/22/2016 Hematologic/Lymphatic No abnormal ec chymoses 10/22/2016 Hematologic/Lymphatic No abnormal bl eeding and bruising 10/22/2016 Genitourinary/Nephrology urinary inc ontinence 10/22/2016 Constitutional No recent illness 10/04/2016 Constitutional No anorexia 10/04/2016 Constitutional No chills 10/04/2016 Constitutional No diaphoresis 10/04/2016 Constitutional No fatigue 10/04/2016 Constitutional No fever 10/04/2016 Constitutional No insomnia 10/04/2016 Constitutional No malaise 10/04/2016 Constitutional No weight loss 10/04/2016 Constitutional No weight gain 10/04/2016 Eyes No eye discharge Eyes No eye erythema Ears/Nose/Throat/Neck No dizziness 10/04/2016 Ears/Nose/Throat/Neck No headache 10/04/2016 Ears/Nose/Throat/Neck No oral lesion 10/04/2016 Cardiovascular No chest pain/pressure 10/04/2016 Cardiovascular No dyspnea 10/04/2016 Respiratory No productive sputum 10/04/2016 Respiratory No cough Gastrointestinal No abdominal pain 10/04/2016 Gastrointestinal No constipation 10/04/2016 Gastrointestinal No diarrhea 10/04/2016 Genitourinary/Nephrology No dysuria 10/04/2016 Musculoskeletal joint complaint 10/04/2016 Dermatologic rash 2016 Neurologic No alteration of consciousness 10/04/2016 Psychiatric No anxiety 0 10/04/2016 Endocrine No dry or coarse skin 10/04/2016 Hematologic/Lymphatic No abnormal ec chymoses 10/04/2016 Hematologic/Lymphatic No abnormal bl eeding and bruising 10/04/2016 Cardiovascular edema Constitutional No recent illness 06/18/2016 Constitutional No anorexia 06/18/2016 Constitutional No chills 06/18/2016 Constitutional No diaphoresis 06/18/2016 Constitutional No fatigue 06/18/2016 Constitutional No fever 06/18/2016 Constitutional No insomnia 06/18/2016 Constitutional No malaise 06/18/2016 Constitutional No weight loss 06/18/2016 Constitutional No weight gain 06/18/2016 Eyes No eye discharge Eyes No eye erythema 06/2016 Ears/Nose/Throat/Neck No dizziness 06/18/2016 Ears/Nose/Throat/Neck No headache 06/18/2016 Cardiovascular No chest pain/pressure 06/18/2016 Cardiovascular No dyspnea 06/18/2016 Respiratory No productive sputum 06/18/2016 Respiratory No cough 06/2016 Gastrointestinal No abdominal pain 06/18/2016 Gastrointestinal No constipation 06/18/2016 Gastrointestinal No diarrhea 06/18/2016 Genitourinary/Nephrology No dysuria 06/18/2016 Dermatologic No rash 06/2016 Neurologic No alteration of consciousness 06/18/2016 Psychiatric No anxiety 0 06/18/2016 Endocrine No dry or coarse skin 06/18/2016 Hematologic/Lymphatic No abnormal ec chymoses 06/18/2016 Hematologic/Lymphatic No abnormal bl eeding and bruising 06/18/2016 Ears/Nose/Throat/Neck No oral lesion 06/18/2016 Musculoskeletal joint complaint 06/18/2016 Constitutional No recent illness 05/21/2016 Constitutional No chills 05/21/2016 Constitutional No diaphoresis 05/21/2016 Constitutional No fever 05/21/2016 Eyes No eye erythema 08/2016 Ears/Nose/Throat/Neck No nasal allergies 05/21/2016 Ears/Nose/Throat/Neck No nasal discharge 05/21/2016 Cardiovascular No chest pain/pressure 05/21/2016 Cardiovascular No dyspnea 05/21/2016 Respiratory No cough 08/2016 Respiratory No dyspnea 0 05/21/2016 Gastrointestinal No abdominal pain 05/21/2016 Neurologic No alteration of consciousness 05/21/2016 Neurologic No mental status change 05/21/2016 Constitutional recent illness 04/29/2016 Constitutional No anorexia 04/29/2016 Constitutional No night sweats 04/29/2016 Constitutional No chills 04/29/2016 Constitutional No diaphoresis 04/29/2016 Constitutional fatigue 0 04/29/2016 Constitutional No fever 04/29/2016 Constitutional No insomnia 04/29/2016 Constitutional No malaise 04/29/2016 Constitutional No weight loss 04/29/2016 Constitutional No weight gain 04/29/2016 Constitutional No obesity 04/29/2016 Eyes No eye pain 017 Eyes No vision change Ears/Nose/Throat/Neck No dizziness 04/29/2016 Ears/Nose/Throat/Neck headache 04/29/2016 Cardiovascular No chest pain/pressure 04/29/2016 Cardiovascular No dyspnea 04/29/2016 Cardiovascular No palpitations 04/29/2016 Respiratory No chest congestion 04/29/2016 Respiratory No chest tightness 04/29/2016 Respiratory No cigarette smoking 04/29/2016 Respiratory cough 2016 Gastrointestinal No abdominal pain 04/29/2016 Gastrointestinal No gas and bloating 04/29/2016 Gastrointestinal No nausea 04/29/2016 Gastrointestinal No vomiting 04/29/2016 Genitourinary/Nephrology No anuria/oliguri a 04/29/2016 Genitourinary/Nephrology No flank pain 04/29/2016 Genitourinary/Nephrology No dysuria 04/29/2016 Musculoskeletal No stiffness 04/29/2016 Musculoskeletal No swelling 04/29/2016 Musculoskeletal No arthralgia(s) 04/29/2016 Musculoskeletal No back pain 04/29/2016 Musculoskeletal No bone fracture 04/29/2016 Musculoskeletal No bone pain 04/29/2016 Dermatologic No rash Dermatologic No sores Neurologic No alteration of consciousness 04/29/2016 Neurologic No dizziness 04/29/2016 Neurologic No memory loss 04/29/2016 Neurologic No mental status change 04/29/2016 Psychiatric No anxiety 0 04/29/2016 Psychiatric No depression 04/29/2016 Constitutional recent illness 04/21/2016 Constitutional No chills 04/21/2016 Constitutional No diaphoresis 04/21/2016 Constitutional No fever 04/21/2016 Eyes No eye erythema 09/2016 Ears/Nose/Throat/Neck nasal allergies 04/21/2016 Ears/Nose/Throat/Neck nasal discharge 04/21/2016 Ears/Nose/Throat/Neck postnasal drip 04/21/2016 Ears/Nose/Throat/Neck sinus congestion 04/21/2016 Ears/Nose/Throat/Neck sore throat 04/21/2016 Cardiovascular No chest pain/pressure 04/21/2016 Cardiovascular No dyspnea 04/21/2016 Respiratory No chest congestion 04/21/2016 Respiratory cough 2016 Respiratory No dyspnea 0 04/21/2016 Gastrointestinal No abdominal pain 04/21/2016 Gastrointestinal No constipation 04/21/2016 Gastrointestinal No diarrhea 04/21/2016 Gastrointestinal No nausea 04/21/2016 Gastrointestinal No vomiting 04/21/2016 Dermatologic No rash 09/2016 Neurologic No alteration of consciousness 04/21/2016 Neurologic No mental status change 04/21/2016 Constitutional No recent illness 02/20/2016 Constitutional No anorexia 02/20/2016 Constitutional night sweats 02/20/2016 Constitutional No chills 02/20/2016 Constitutional No diaphoresis 02/20/2016 Constitutional No fatigue 02/20/2016 Constitutional No fever 02/20/2016 Constitutional No insomnia 02/20/2016 Constitutional No malaise 02/20/2016 Constitutional No weight loss 02/20/2016 Constitutional No weight gain 02/20/2016 Eyes No eye discharge Eyes No eye erythema 07/2016 Ears/Nose/Throat/Neck No dizziness 02/20/2016 Ears/Nose/Throat/Neck No headache 02/20/2016 Ears/Nose/Throat/Neck otalgia 02/20/2016 Cardiovascular No chest pain/pressure 02/20/2016 Cardiovascular No dyspnea 02/20/2016 Cardiovascular edema 07/2016 Respiratory No productive sputum 02/20/2016 Respiratory No cough 07/2016 Ears/Nose/Throat/Neck nasal allergies 02/20/2016 Gastrointestinal No abdominal pain 02/20/2016 Gastrointestinal No diarrhea 02/20/2016 Gastrointestinal No constipation 02/20/2016 Genitourinary/Nephrology No dysuria 02/20/2016 Genitourinary/Nephrology urinary urgency 02/20/2016 Musculoskeletal joint complaint 02/20/2016 Dermatologic No rash 07/2016 Neurologic No alteration of consciousness 02/20/2016 Psychiatric No anxiety 0 02/20/2016 Endocrine No dry or coarse skin 02/20/2016 Hematologic/Lymphatic No abnormal bl eeding and bruising 02/20/2016 Hematologic/Lymphatic No abnormal ec chymoses 02/20/2016 Constitutional recent illness 01/01/2016 Constitutional No anorexia 01/01/2016 Constitutional No night sweats 01/01/2016 Constitutional No chills 01/01/2016 Constitutional No diaphoresis 01/01/2016 Constitutional fatigue 1 03/02/2015 Constitutional No fever 01/01/2016 Constitutional No insomnia 01/01/2016 Constitutional No malaise 01/01/2016 Eyes No eye discharge Eyes No eye erythema Eyes No vision change Ears/Nose/Throat/Neck nasal allergies 01/01/2016 Ears/Nose/Throat/Neck No nasal discharge 01/01/2016 Ears/Nose/Throat/Neck No otalgia 01/01/2016 Ears/Nose/Throat/Neck No otitis media 01/01/2016 Ears/Nose/Throat/Neck No postnasal drip 01/01/2016 Ears/Nose/Throat/Neck No sinus congestion 01/01/2016 Cardiovascular No chest pain/pressure 01/01/2016 Cardiovascular No dyspnea 01/01/2016 Cardiovascular edema Respiratory chest congestion 01/01/2016 Respiratory chest tightness 01/01/2016 Respiratory No cigarette smoking 01/01/2016 Respiratory cough 2015 Respiratory No dyspnea on exertion 01/01/2016 Respiratory No dyspnea 1 03/02/2015 Gastrointestinal No abdominal pain 01/01/2016 Gastrointestinal No constipation 01/01/2016 Gastrointestinal No diarrhea 01/01/2016 Genitourinary/Nephrology No dysuria 01/01/2016 Genitourinary/Nephrology urinary urgency 01/01/2016 Genitourinary/Nephrology No urinary frequency 01/01/2016 Genitourinary/Nephrology No urinary incontinence 01/01/2016 Genitourinary/Nephrology No urinary retention/hesitancy 01/01/2016 Musculoskeletal No back pain 01/01/2016 Musculoskeletal joint complaint 01/01/2016 Musculoskeletal No muscle weakness 01/01/2016 Musculoskeletal No myalgias 01/01/2016 Dermatologic No rash Dermatologic No sores Neurologic No alteration of consciousness 01/01/2016 Psychiatric No anxiety 1 03/02/2015 Psychiatric No depression 01/01/2016 Musculoskeletal joint complaint 11/13/2015 Constitutional No recent illness 11/13/2015 Constitutional No anorexia 11/13/2015 Constitutional No night sweats 11/13/2015 Constitutional No chills 11/13/2015 Constitutional No diaphoresis 11/13/2015 Constitutional No fatigue 11/13/2015 Constitutional No fever 11/13/2015 Constitutional No insomnia 11/13/2015 Constitutional No malaise 11/13/2015 Constitutional No recent illness 11/07/2015 Constitutional No anorexia 11/07/2015 Constitutional No night sweats 11/07/2015 Constitutional No chills 11/07/2015 Constitutional No diaphoresis 11/07/2015 Constitutional No fatigue 11/07/2015 Constitutional No fever 11/07/2015 Constitutional No insomnia 11/07/2015 Constitutional No malaise 11/07/2015 Constitutional No weight loss 11/07/2015 Constitutional No weight gain 11/07/2015 Constitutional No obesity 11/07/2015 Eyes No eye discharge Eyes No eye erythema Eyes No vision change Ears/Nose/Throat/Neck nasal allergies 11/07/2015 Ears/Nose/Throat/Neck No nasal discharge 11/07/2015 Ears/Nose/Throat/Neck No otalgia 11/07/2015 Ears/Nose/Throat/Neck No otitis media 11/07/2015 Ears/Nose/Throat/Neck No postnasal drip 11/07/2015 Ears/Nose/Throat/Neck No sinus congestion 11/07/2015 Cardiovascular No chest pain/pressure 11/07/2015 Cardiovascular No dyspnea 11/07/2015 Cardiovascular edema Respiratory No chest congestion 11/07/2015 Respiratory No chest tightness 11/07/2015 Respiratory No cigarette smoking 11/07/2015 Respiratory No cough Respiratory No dyspnea on exertion 11/07/2015 Respiratory No dyspnea 0 11/07/2015 Gastrointestinal No abdominal pain 11/07/2015 Gastrointestinal No constipation 11/07/2015 Gastrointestinal No diarrhea 11/07/2015 Genitourinary/Nephrology No dysuria 11/07/2015 Genitourinary/Nephrology urinary urgency 11/07/2015 Genitourinary/Nephrology No urinary frequency 11/07/2015 Genitourinary/Nephrology No urinary incontinence 11/07/2015 Genitourinary/Nephrology No urinary retention/hesitancy 11/07/2015 Musculoskeletal No back pain 11/07/2015 Musculoskeletal joint complaint 11/07/2015 Musculoskeletal No muscle weakness 11/07/2015 Musculoskeletal No myalgias 11/07/2015 Dermatologic No rash Dermatologic No sores Psychiatric No anxiety 0 11/07/2015 Psychiatric No depression 11/07/2015 Neurologic No alteration of consciousness 11/07/2015 Constitutional No recent illness 08/07/2015 Constitutional No anorexia 08/07/2015 Constitutional No night sweats 08/07/2015 Constitutional No chills 08/07/2015 Constitutional No diaphoresis 08/07/2015 Constitutional No fatigue 08/07/2015 Constitutional No fever 08/07/2015 Constitutional No insomnia 08/07/2015 Constitutional No malaise 08/07/2015 Constitutional No weight loss 08/07/2015 Constitutional No weight gain 08/07/2015 Constitutional No obesity 08/07/2015 Cardiovascular No dyspnea 08/07/2015 Cardiovascular edema Cardiovascular No chest pain/pressure 08/07/2015 Ears/Nose/Throat/Neck nasal allergies 08/07/2015 Ears/Nose/Throat/Neck No nasal discharge 08/07/2015 Ears/Nose/Throat/Neck No otitis media 08/07/2015 Ears/Nose/Throat/Neck No otalgia 08/07/2015 Ears/Nose/Throat/Neck No postnasal drip 08/07/2015 Ears/Nose/Throat/Neck No sinus congestion 08/07/2015 Respiratory No dyspnea 0 08/07/2015 Respiratory No dyspnea on exertion 08/07/2015 Respiratory No cough Respiratory No cigarette smoking 08/07/2015 Respiratory No chest tightness 08/07/2015 Respiratory No chest congestion 08/07/2015 Gastrointestinal No constipation 08/07/2015 Gastrointestinal No diarrhea 08/07/2015 Gastrointestinal No abdominal pain 08/07/2015 Genitourinary/Nephrology No dysuria 08/07/2015 Genitourinary/Nephrology No urinary urgenc y 08/07/2015 Genitourinary/Nephrology No urinary frequency 08/07/2015 Genitourinary/Nephrology No urinary incontinence 08/07/2015 Genitourinary/Nephrology No urinary retention/hesitancy 08/07/2015 Musculoskeletal No muscle weakness 08/07/2015 Musculoskeletal No myalgias 08/07/2015 Musculoskeletal No joint complaint 08/07/2015 Musculoskeletal shoulder pain 08/07/2015 Musculoskeletal No back pain 08/07/2015 Dermatologic No sores Dermatologic No rash Eyes No vision change Eyes No eye discharge Eyes No eye erythema Psychiatric No depression 08/07/2015 Psychiatric No anxiety 0 08/07/2015 Physical Exam Exam Name System Name It em Name Status Result Effective Dates Notes Full Exam - Dermatology Constitutional general appearance Overall: well nourished 09/06/2018 None Full Exam - Dermatology Constitutional general appearance Overall: well developed 09/06/2018 None Full Exam - Dermatology Constitutional general appearance Overall: in no acute distress 09/06/2018 None Full Exam - Dermatology Eyes conjunctiva/eyelids Overall: clear conjunctiva bilaterally 09/06/2018 None Full Exam - Dermatology Eyes conjunctiva/eyelids Overall: clear corneas 09/06/2018 None Full Exam - Dermatology Eyes conjunctiva/eyelids Overall: normal eyelids 09/06/2018 None Full Exam - Dermatology Ears/Nose/Throat lips/teeth/gingiva Overall: benign lips 09/06/2018 None Full Exam - Dermatology Ears/Nose/Throat oropharynx Overall: clear oral mucosa 09/06/2018 None Full Exam - Dermatology Respiratory respiratory effort/rhythm Overall: no retractions 09/06/2018 None Full Exam - Dermatology Respiratory respiratory effort/rhythm Overall: normal rate 09/06/2018 None Full Exam - Dermatology Musculoskeletal head and neck Overall: head atraumatic 09/06/2018 None Full Exam - Dermatology Psychiatric orientation Overall: oriented to person, place and time 09/06/2018 None Full Exam - Dermatology Psychiatric mood and affect Overall: normal mood and affect 09/06/2018 None Full Exam - Dermatology Integument insp & palp - chest/axillae Lesion: papule 09/06/2018 None Full Exam - Dermatology Integument insp & palp - chest/axillae Location: on the left upper chest 09/06/2018 None Full Exam - Dermatology Integument insp & palp - chest/axillae Color: erythematous 09/06/2018 None Full Exam - Dermatology Integument insp & palp - genitalia/groin/buttocks Location: on the left groin 09/06/2018 None Full Exam - Dermatology Integument insp & palp - genitalia/groin/buttocks Location: on the right groin 09/06/2018 None Full Exam - Dermatology Integument insp & palp - genitalia/groin/buttocks Lesion: patch 09/06/2018 None Full Exam - Dermatology Integument insp & palp - genitalia/groin/buttocks Color: erythematous 09/06/2018 None Full Exam - Dermatology Integument insp & palp - left upper extremity Location: on the forearm 09/06/2018 None Full Exam - Dermatology Integument insp & palp - left upper extremity Color: erythematous 09/06/2018 None Full Exam - Dermatology Integument insp & palp - left upper extremity Lesion: patch 09/06/2018 None Full Exam - Dermatology Integument insp & palp - right upper extremity Location: on the forearm 09/06/2018 None Full Exam - Dermatology Integument insp & palp - right upper extremity Lesion: patch 09/06/2018 None Full Exam - Dermatology Integument insp & palp - right upper extremity Color: erythematous 09/06/2018 None Full Exam - Dermatology Integument insp & palp - left lower extremity Lesion: patch 09/06/2018 None Full Exam - Dermatology Integument insp & palp - left lower extremity Location: on the thigh 09/06/2018 None Full Exam - Dermatology Integument insp & palp - left lower extremity Color: erythematous 09/06/2018 None Full Exam - Dermatology Integument insp & palp - right lower extremity Lesion: patch 09/06/2018 None Full Exam - Dermatology Integument insp & palp - right lower extremity Location: on the thigh 09/06/2018 None Full Exam - Dermatology Integument insp & palp - right lower extremity Color: erythematous 09/06/2018 None Full Exam - Orthopedics Constitutional general appearance Overall: well nourished 08/28/2018 None Full Exam - Orthopedics Constitutional general appearance Overall: well developed 08/28/2018 None Full Exam - Orthopedics Constitutional general appearance Overall: in no acute distress 08/28/2018 None Full Exam - Orthopedics Eyes conjunctiva/eyelids Overall: conjunctiva clear 08/28/2018 None Full Exam - Orthopedics Eyes conjunctiva/eyelids Overall: eyelids normal 08/28/2018 None Full Exam - Orthopedics Ears/Nose/Throat lips/teeth/gingiva Overall: benign lips 08/28/2018 None Full Exam - Orthopedics Ears/Nose/Throat oral cavity/pharynx/larynx Overall: oral mucosa clear 08/28/2018 None Full Exam - Orthopedics Respiratory respiratory effort/rhythm Overall: no retractions 08/28/2018 None Full Exam - Orthopedics Respiratory respiratory effort/rhythm Overall: normal rate 08/28/2018 None Full Exam - Orthopedics Psychiatric orientation/consciousness Overall: oriented to person, place and time 08/28/2018 None Full Exam - Orthopedics Psychiatric mood and affect Overall: normal mood and affect 08/28/2018 None Full Exam - Orthopedics Psychiatric appearance Overall: well-groomed, good eye contact 08/28/2018 None Full Exam - Orthopedics MS: head/neck insp & palp - H/N Overall: head atraumatic 08/28/2018 None Full Exam - Orthopedics MS: right lo wer extremity insp & palp - RLE Knee: crepitus 08/28/2018 None Full Exam - Orthopedics MS: right lo wer extremity insp & palp - RLE Knee: joint tenderness 08/28/2018 None Full Exam - Orthopedics Constitutional general appearance Overall: well nourished 05/22/2018 None Full Exam - Orthopedics Constitutional general appearance Overall: well developed 05/22/2018 None Full Exam - Orthopedics Constitutional general appearance Overall: in no acute distress 05/22/2018 None Full Exam - Orthopedics MS: spine/ri b/pelvis insp & palp - S/R/P Hip palpation: left trochanter tenderness 05/22/2018 None Full Exam - Orthopedics MS: left upp er extremity insp & palp - LUE Shoulder: swelling 05/22/2018 None Full Exam - Orthopedics MS: left upp er extremity insp & palp - LUE Shoulder: glenohumeral joint effusion 05/22/2018 None Full Exam - Orthopedics MS: left upp er extremity insp & palp - LUE Shoulder: acromioclavicular joint effusion 05/22/2018 None Full Exam - Orthopedics MS: left upp er extremity range of motion - LUE Shoulder: decreased flexion 05/22/2018 None Full Exam - Orthopedics MS: left upp er extremity range of motion - LUE Shoulder: decreased abduction 05/22/2018 None Full Exam - Orthopedics MS: left upp er extremity range of motion - LUE Shoulder: pain with abduction 05/22/2018 None Full Exam - Orthopedics MS: left upp er extremity range of motion - LUE Shoulder: decreased adduction 05/22/2018 None Full Exam - Orthopedics MS: left upp er extremity range of motion - LUE Shoulder: pain with adduction 05/22/2018 None Full Exam - Orthopedics MS: left upp er extremity range of motion - LUE Shoulder: pain with flexion 05/22/2018 None Full Exam - Orthopedics MS: left upp er extremity range of motion - LUE Shoulder: decreased extension 05/22/2018 None Full Exam - Orthopedics MS: left upp er extremity range of motion - LUE Shoulder: pain with extension 05/22/2018 None Full Exam - Orthopedics Psychiatric orientation/consciousness Overall: oriented to person, place and time 05/22/2018 None Full Exam - Orthopedics Constitutional general appearance Overall: well nourished 04/26/2018 None Full Exam - Orthopedics Constitutional general appearance Overall: well developed 04/26/2018 None Full Exam - Orthopedics Constitutional general appearance Overall: in no acute distress 04/26/2018 None Full Exam - Orthopedics Eyes conjunctiva/eyelids Overall: conjunctiva clear 04/26/2018 None Full Exam - Orthopedics Eyes conjunctiva/eyelids Overall: eyelids normal 04/26/2018 None Full Exam - Orthopedics Ears/Nose/Throat lips/teeth/gingiva Overall: benign lips 04/26/2018 None Full Exam - Orthopedics Ears/Nose/Throat oral cavity/pharynx/larynx Overall: oral mucosa clear 04/26/2018 None Full Exam - Orthopedics Respiratory respiratory effort/rhythm Overall: no retractions 04/26/2018 None Full Exam - Orthopedics Respiratory respiratory effort/rhythm Overall: normal rate 04/26/2018 None Full Exam - Orthopedics Psychiatric orientation/consciousness Overall: oriented to person, place and time 04/26/2018 None Full Exam - Orthopedics Psychiatric mood and affect Overall: normal mood and affect 04/26/2018 None Full Exam - Orthopedics Psychiatric appearance Overall: well-groomed, good eye contact 04/26/2018 None Full Exam - Orthopedics MS: head/neck insp & palp - H/N Overall: head atraumatic 04/26/2018 None Full Exam - Orthopedics MS: left upp er extremity insp & palp - LUE Shoulder: glenohumeral joint tenderness 04/26/2018 None Full Exam - Orthopedics MS: left upp er extremity insp & palp - LUE Shoulder: acromioclavicular joint tenderness 04/26/2018 None Full Exam - Orthopedics MS: right lo wer extremity insp & palp - RLE Knee: joint tenderness 04/26/2018 None Full Exam - General 1994 Constitutional general appearance Overall: well developed 12/21/2017 None Full Exam - General 1994 Constitutional general appearance Overall: in no acute distress 12/21/2017 None Full Exam - General 1994 Constitutional general appearance Overall: well nourished 12/21/2017 None Full Exam - General 1994 Eyes conjunctiva/eyelids Overall: conjunctiva clear 12/21/2017 None Full Exam - General 1994 Eyes conjunctiva/eyelids Overall: cornea clear 12/21/2017 None Full Exam - General 1994 Eyes conjunctiva/eyelids Overall: eyelids normal 12/21/2017 None Full Exam - General 1994 Eyes pupils and irises Overall: pupils equal, round, reactive to light and accomodation 12/21/2017 None Full Exam - General 1994 Ears/Nose/Throat lips/teeth/gingiva Overall: benign lips 12/21/2017 None Full Exam - General 1994 Ears/Nose/Throat oral cavity/pharynx/larynx Overall: oral mucosa clear 12/21/2017 None Full Exam - General 1994 Respiratory auscultation Overall: breath sounds clear bilaterally 12/21/2017 None Full Exam - General 1994 Respiratory auscultation Diffuse: diminished 12/21/2017 None Full Exam - General 1994 Respiratory respiratory effort/rhythm Overall: no retractions 12/21/2017 None Full Exam - General 1994 Respiratory respiratory effort/rhythm Overall: normal rate 12/21/2017 None Full Exam - General 1994 Cardiovascular auscultation of heart Overall: regular rate 12/21/2017 None Full Exam - General 1994 Cardiovascular auscultation of heart Overall: normal heart sounds 12/21/2017 None Full Exam - General 1994 Cardiovascular auscultation of heart Systolic murmur: holosystolic 12/21/2017 None Full Exam - General 1994 Cardiovascular auscultation of heart Systolic murmur grade: II/ 12/21/2017 None Full Exam - General 1994 Abdomen abdominal exam Overall: no tenderness 12/21/2017 None Full Exam - General 1994 Abdomen abdominal exam Overall: normal bowel sounds 12/21/2017 None Full Exam - General 1994 Musculoskeletal lower extremity Palpation - knee: crepitus 12/21/2017 None Full Exam - General 1994 Musculoskeletal lower extremity ROM - knee: pain with flexion 12/21/2017 None Full Exam - General 1994 Musculoskeletal gait and station Overall: normal gait 12/21/2017 None Full Exam - General 1994 Musculoskeletal gait and station Overall: normal station 12/21/2017 None Full Exam - General 1994 Musculoskeletal head and neck Overall: head atraumatic 12/21/2017 None Full Exam - General 1994 Neurologic cranial nerves Overall: crainial nerves 2 - 12 grossly intact 12/21/2017 None Full Exam - General 1994 Psychiatric orientation/consciousness Overall: oriented to person, place and time 12/21/2017 None Full Exam - General 1994 Psychiatric mood and affect Overall: normal mood and affect 12/21/2017 None Full Exam - General 1994 Psychiatric appearance Overall: well-groomed, good eye contact 12/21/2017 None Full Exam - General 1994 Constitutional general appearance Overall: well developed 08/25/2017 None Full Exam - General 1994 Constitutional general appearance Overall: in no acute distress 08/25/2017 None Full Exam - General 1994 Constitutional general appearance Overall: well nourished 08/25/2017 None Full Exam - General 1995 Eyes conjunctiva/eyelids Overall: conjunctiva clear 08/25/2017 None Full Exam - General 1994 Eyes conjunctiva/eyelids Overall: cornea clear 08/25/2017 None Full Exam - General 1994 Eyes conjunctiva/eyelids Overall: eyelids normal 08/25/2017 None Full Exam - General 1994 Eyes pupils and irises Overall: pupils equal, round, reactive to light and accomodation 08/25/2017 None Full Exam - General 1994 Ears/Nose/Throat otoscopic exam Overall: external auditory canals clear 08/25/2017 None Full Exam - General 1994 Ears/Nose/Throat otoscopic exam Overall: tympanic membranes clear 08/25/2017 None Full Exam - General 1994 Ears/Nose/Throat lips/teeth/gingiva Overall: benign lips 08/25/2017 None Full Exam - General 1994 Ears/Nose/Throat oral cavity/pharynx/larynx Overall: oral mucosa clear 08/25/2017 None Full Exam - General 1994 Respiratory auscultation Overall: breath sounds clear bilaterally 08/25/2017 None Full Exam - General 1994 Respiratory auscultation Diffuse: diminished 08/25/2017 None Full Exam - General 1994 Respiratory respiratory effort/rhythm Overall: no retractions 08/25/2017 None Full Exam - General 1994 Respiratory respiratory effort/rhythm Overall: normal rate 08/25/2017 None Full Exam - General 1994 Cardiovascular auscultation of heart Overall: regular rate 08/25/2017 None Full Exam - General 1994 Cardiovascular auscultation of heart Overall: normal heart sounds 08/25/2017 None Full Exam - General 1994 Cardiovascular auscultation of heart Systolic murmur: holosystolic 08/25/2017 None Full Exam - General 1994 Cardiovascular auscultation of heart Systolic murmur grade: II/ 08/25/2017 None Full Exam - General 1994 Abdomen abdominal exam Overall: no tenderness 08/25/2017 None Full Exam - General 1994 Abdomen abdominal exam Overall: normal bowel sounds 08/25/2017 None Full Exam - General 1994 Musculoskeletal gait and station Overall: normal gait 08/25/2017 None Full Exam - General 1994 Musculoskeletal gait and station Overall: normal station 08/25/2017 None Full Exam - General 1994 Neurologic cranial nerves Overall: crainial nerves 2 - 12 grossly intact 08/25/2017 None Full Exam - General 1994 Psychiatric orientation/consciousness Overall: oriented to person, place and time 08/25/2017 None Full Exam - General 1994 Psychiatric mood and affect Overall: normal mood and affect 08/25/2017 None Full Exam - General 1994 Psychiatric appearance Overall: well-groomed, good eye contact 08/25/2017 None Full Exam - General 1994 Musculoskeletal head and neck Overall: head atraumatic 08/25/2017 None Full Exam - General 1994 Musculoskeletal lower extremity Palpation - knee: crepitus 08/25/2017 None Full Exam - General 1994 Musculoskeletal lower extremity ROM - knee: pain with flexion 08/25/2017 None Full Exam - General 1994 Constitutional general appearance Overall: well developed 05/30/2017 None Full Exam - General 1994 Constitutional general appearance Overall: in no acute distress 05/30/2017 None Full Exam - General 1994 Constitutional general appearance Overall: well nourished 05/30/2017 None Full Exam - General 1994 Eyes conjunctiva/eyelids Overall: conjunctiva clear 05/30/2017 None Full Exam - General 1994 Eyes conjunctiva/eyelids Overall: eyelids normal 05/30/2017 None Full Exam - General 1994 Ears/Nose/Throat lips/teeth/gingiva Overall: benign lips 05/30/2017 None Full Exam - General 1994 Respiratory respiratory effort/rhythm Overall: no retractions 05/30/2017 None Full Exam - General 1994 Respiratory respiratory effort/rhythm Overall: normal rate 05/30/2017 None Full Exam - General 1994 Musculoskeletal head and neck Overall: head atraumatic 05/30/2017 None Full Exam - General 1994 Neurologic cranial nerves Overall: crainial nerves 2 - 12 grossly intact 05/30/2017 None Full Exam - General 1994 Psychiatric orientation/consciousness Overall: oriented to person, place and time 05/30/2017 None Full Exam - General 1994 Psychiatric mood and affect Overall: normal mood and affect 05/30/2017 None Full Exam - General 1994 Psychiatric appearance Overall: well-groomed, good eye contact 05/30/2017 None Full Exam - General 1994 Constitutional general appearance Overall: well developed 04/20/2017 None Full Exam - General 1994 Constitutional general appearance Overall: in no acute distress 04/20/2017 None Full Exam - General 1994 Constitutional general appearance Overall: well nourished 04/20/2017 None Full Exam - General 1994 Eyes conjunctiva/eyelids Overall: conjunctiva clear 04/20/2017 None Full Exam - General 1994 Eyes pupils and irises Overall: pupils equal, round, reactive to light and accomodation 04/20/2017 None Full Exam - General 1995 Ears/Nose/Throat otoscopic exam Overall: external auditory canals clear 04/20/2017 None Full Exam - General 1994 Ears/Nose/Throat otoscopic exam Overall: tympanic membranes clear 04/20/2017 None Full Exam - General 1994 Ears/Nose/Throat oral cavity/pharynx/larynx Overall: oral mucosa clear 04/20/2017 None Full Exam - General 1994 Respiratory auscultation Overall: breath sounds clear bilaterally 04/20/2017 None Full Exam - General 1994 Respiratory respiratory effort/rhythm Overall: no retractions 04/20/2017 None Full Exam - General 1994 Respiratory respiratory effort/rhythm Overall: normal rate 04/20/2017 None Full Exam - General 1994 Cardiovascular auscultation of heart Overall: regular rate 04/20/2017 None Full Exam - General 1994 Cardiovascular auscultation of heart Overall: normal heart sounds 04/20/2017 None Full Exam - General 1994 Cardiovascular auscultation of heart Systolic murmur: holosystolic 04/20/2017 None Full Exam - General 1994 Cardiovascular auscultation of heart Systolic murmur grade: II/ 04/20/2017 None Full Exam - General 1994 Abdomen abdominal exam Overall: no tenderness 04/20/2017 None Full Exam - General 1994 Abdomen abdominal exam Overall: normal bowel sounds 04/20/2017 None Full Exam - General 1994 Lymphatic neck nodes Overall: anterior cervical chain benign 04/20/2017 None Full Exam - General 1994 Lymphatic neck nodes Overall: posterior cervical chain benign 04/20/2017 None Full Exam - General 1994 Musculoskeletal gait and station Overall: normal gait 04/20/2017 None Full Exam - General 1994 Musculoskeletal gait and station Overall: normal station 04/20/2017 None Full Exam - General 1994 Neurologic cranial nerves Overall: crainial nerves 2 - 12 grossly intact 04/20/2017 None Full Exam - General 1994 Psychiatric orientation/consciousness Overall: oriented to person, place and time 04/20/2017 None Full Exam - General 1994 Eyes conjunctiva/eyelids Overall: cornea clear 04/20/2017 None Full Exam - General 1994 Eyes conjunctiva/eyelids Overall: eyelids normal 04/20/2017 None Full Exam - General 1994 Ears/Nose/Throat lips/teeth/gingiva Overall: benign lips 04/20/2017 None Full Exam - General 1994 Respiratory auscultation Diffuse: diminished 04/20/2017 None Full Exam - General 1994 Psychiatric mood and affect Overall: normal mood and affect 04/20/2017 None Full Exam - General 1994 Psychiatric appearance Overall: well-groomed, good eye contact 04/20/2017 None Full Exam - General 1994 Constitutional general appearance Overall: well developed 01/21/2017 None Full Exam - General 1994 Constitutional general appearance Overall: in no acute distress 01/21/2017 None Full Exam - General 1994 Constitutional general appearance Overall: well nourished 01/21/2017 None Full Exam - General 1994 Eyes conjunctiva/eyelids Overall: conjunctiva clear 01/21/2017 None Full Exam - General 1994 Eyes pupils and irises Overall: pupils equal, round, reactive to light and accomodation 01/21/2017 None Full Exam - General 1994 Ears/Nose/Throat otoscopic exam Overall: external auditory canals clear 01/21/2017 None Full Exam - General 1994 Ears/Nose/Throat otoscopic exam Overall: tympanic membranes clear 01/21/2017 None Full Exam - General 1994 Ears/Nose/Throat oral cavity/pharynx/larynx Overall: oral mucosa clear 01/21/2017 None Full Exam - General 1994 Respiratory auscultation Overall: breath sounds clear bilaterally 01/21/2017 None Full Exam - General 1994 Respiratory respiratory effort/rhythm Overall: no retractions 01/21/2017 None Full Exam - General 1994 Respiratory respiratory effort/rhythm Overall: normal rate 01/21/2017 None Full Exam - General 1994 Cardiovascular auscultation of heart Overall: regular rate 01/21/2017 None Full Exam - General 1994 Cardiovascular auscultation of heart Overall: normal heart sounds 01/21/2017 None Full Exam - General 1994 Cardiovascular auscultation of heart Systolic murmur: holosystolic 01/21/2017 None Full Exam - General 1994 Cardiovascular auscultation of heart Systolic murmur grade: II/ 01/21/2017 None Full Exam - General 1994 Abdomen abdominal exam Overall: no tenderness 01/21/2017 None Full Exam - General 1994 Abdomen abdominal exam Overall: normal bowel sounds 01/21/2017 None Full Exam - General 1994 Lymphatic neck nodes Overall: anterior cervical chain benign 01/21/2017 None Full Exam - General 1994 Lymphatic neck nodes Overall: posterior cervical chain benign 01/21/2017 None Full Exam - General 1994 Musculoskeletal gait and station Overall: normal gait 01/21/2017 None Full Exam - General 1994 Musculoskeletal gait and station Overall: normal station 01/21/2017 None Full Exam - General 1994 Integument inspection of skin Overall: few scattered moles, no gross abnormalities 01/21/2017 None Full Exam - General 1994 Neurologic cranial nerves Overall: crainial nerves 2 - 12 grossly intact 01/21/2017 None Full Exam - General 1994 Psychiatric orientation/consciousness Overall: oriented to person, place and time 01/21/2017 None Full Exam - General 1994 Constitutional general appearance Overall: well developed 10/22/2016 None Full Exam - General 1994 Constitutional general appearance Overall: in no acute distress 10/22/2016 None Full Exam - General 1994 Constitutional general appearance Overall: well nourished 10/22/2016 None Full Exam - General 1994 Eyes conjunctiva/eyelids Overall: conjunctiva clear 10/22/2016 None Full Exam - General 1994 Eyes pupils and irises Overall: pupils equal, round, reactive to light and accomodation 10/22/2016 None Full Exam - General 1994 Ears/Nose/Throat otoscopic exam Overall: external auditory canals clear 10/22/2016 None Full Exam - General 1994 Ears/Nose/Throat otoscopic exam Overall: tympanic membranes clear 10/22/2016 None Full Exam - General 1994 Ears/Nose/Throat oral cavity/pharynx/larynx Overall: oral mucosa clear 10/22/2016 None Full Exam - General 1994 Respiratory auscultation Overall: breath sounds clear bilaterally 10/22/2016 None Full Exam - General 1994 Respiratory respiratory effort/rhythm Overall: no retractions 10/22/2016 None Full Exam - General 1994 Respiratory respiratory effort/rhythm Overall: normal rate 10/22/2016 None Full Exam - General 1994 Cardiovascular auscultation of heart Overall: regular rate 10/22/2016 None Full Exam - General 1994 Cardiovascular auscultation of heart Overall: normal heart sounds 10/22/2016 None Full Exam - General 1994 Cardiovascular auscultation of heart Systolic murmur: holosystolic 10/22/2016 None Full Exam - General 1994 Cardiovascular auscultation of heart Systolic murmur grade: II/ 10/22/2016 None Full Exam - General 1994 Abdomen abdominal exam Overall: no tenderness 10/22/2016 None Full Exam - General 1994 Abdomen abdominal exam Overall: normal bowel sounds 10/22/2016 None Full Exam - General 1994 Lymphatic neck nodes Overall: anterior cervical chain benign 10/22/2016 None Full Exam - General 1994 Lymphatic neck nodes Overall: posterior cervical chain benign 10/22/2016 None Full Exam - General 1994 Musculoskeletal gait and station Overall: normal gait 10/22/2016 None Full Exam - General 1994 Musculoskeletal gait and station Overall: normal station 10/22/2016 None Full Exam - General 1994 Integument inspection of skin Overall: few scattered moles, no gross abnormalities 10/22/2016 None Full Exam - General 1994 Neurologic cranial nerves Overall: crainial nerves 2 - 12 grossly intact 10/22/2016 None Full Exam - General 1994 Psychiatric orientation/consciousness Overall: oriented to person, place and time 10/22/2016 None Full Exam - General 1994 Constitutional general appearance Overall: well developed 10/04/2016 None Full Exam - General 1994 Constitutional general appearance Overall: in no acute distress 10/04/2016 None Full Exam - General 1994 Constitutional general appearance Overall: well nourished 10/04/2016 None Full Exam - General 1994 Eyes conjunctiva/eyelids Overall: conjunctiva clear 10/04/2016 None Full Exam - General 1994 Eyes pupils and irises Overall: pupils equal, round, reactive to light and accomodation 10/04/2016 None Full Exam - General 1994 Ears/Nose/Throat otoscopic exam Overall: external auditory canals clear 10/04/2016 None Full Exam - General 1994 Ears/Nose/Throat otoscopic exam Overall: tympanic membranes clear 10/04/2016 None Full Exam - General 1994 Ears/Nose/Throat oral cavity/pharynx/larynx Overall: oral mucosa clear 10/04/2016 None Full Exam - General 1994 Respiratory auscultation Overall: breath sounds clear bilaterally 10/04/2016 None Full Exam - General 1994 Respiratory respiratory effort/rhythm Overall: no retractions 10/04/2016 None Full Exam - General 1994 Respiratory respiratory effort/rhythm Overall: normal rate 10/04/2016 None Full Exam - General 1994 Cardiovascular auscultation of heart Overall: regular rate 10/04/2016 None Full Exam - General 1994 Cardiovascular auscultation of heart Overall: normal heart sounds 10/04/2016 None Full Exam - General 1994 Cardiovascular auscultation of heart Systolic murmur: holosystolic 10/04/2016 None Full Exam - General 1994 Cardiovascular auscultation of heart Systolic murmur grade: II/ 10/04/2016 None Full Exam - General 1994 Abdomen abdominal exam Overall: no tenderness 10/04/2016 None Full Exam - General 1994 Abdomen abdominal exam Overall: normal bowel sounds 10/04/2016 None Full Exam - General 1994 Lymphatic neck nodes Overall: anterior cervical chain benign 10/04/2016 None Full Exam - General 1994 Lymphatic neck nodes Overall: posterior cervical chain benign 10/04/2016 None Full Exam - General 1994 Musculoskeletal gait and station Overall: normal gait 10/04/2016 None Full Exam - General 1994 Musculoskeletal gait and station Overall: normal station 10/04/2016 None Full Exam - General 1994 Neurologic cranial nerves Overall: crainial nerves 2 - 12 grossly intact 10/04/2016 None Full Exam - General 1994 Psychiatric orientation/consciousness Overall: oriented to person, place and time 10/04/2016 None Full Exam - General 1994 Cardiovascular extremities Edema present: pitting 10/04/2016 None Full Exam - General 1994 Cardiovascular extremities Edema present: severity 1+ - 4+: 1+ ankles 10/04/2016 None Full Exam - General 1994 Integument inspection of skin Location: back 10/04/2016 None Full Exam - General 1994 Integument inspection of skin Location: chest 10/04/2016 None Full Exam - General 1994 Integument inspection of skin Dermatitis: erythema 10/04/2016 None Full Exam - General 1994 Integument inspection of skin Rash/Lesions: patch 10/04/2016 None Full Exam - General 1994 Constitutional general appearance Overall: well developed 06/18/2016 None Full Exam - General 1994 Constitutional general appearance Overall: in no acute distress 06/18/2016 None Full Exam - General 1994 Constitutional general appearance Overall: well nourished 06/18/2016 None Full Exam - General 1994 Eyes conjunctiva/eyelids Overall: conjunctiva clear 06/18/2016 None Full Exam - General 1994 Eyes pupils and irises Overall: pupils equal, round, reactive to light and accomodation 06/18/2016 None Full Exam - General 1994 Ears/Nose/Throat otoscopic exam Overall: external auditory canals clear 06/18/2016 None Full Exam - General 1994 Ears/Nose/Throat otoscopic exam Overall: tympanic membranes clear 06/18/2016 None Full Exam - General 1994 Ears/Nose/Throat oral cavity/pharynx/larynx Overall: oral mucosa clear 06/18/2016 None Full Exam - General 1994 Respiratory auscultation Overall: breath sounds clear bilaterally 06/18/2016 None Full Exam - General 1994 Respiratory respiratory effort/rhythm Overall: no retractions 06/18/2016 None Full Exam - General 1994 Respiratory respiratory effort/rhythm Overall: normal rate 06/18/2016 None Full Exam - General 1994 Cardiovascular auscultation of heart Overall: regular rate 06/18/2016 None Full Exam - General 1994 Abdomen abdominal exam Overall: no tenderness 06/18/2016 None Full Exam - General 1994 Abdomen abdominal exam Overall: normal bowel sounds 06/18/2016 None Full Exam - General 1994 Lymphatic neck nodes Overall: anterior cervical chain benign 06/18/2016 None Full Exam - General 1994 Lymphatic neck nodes Overall: posterior cervical chain benign 06/18/2016 None Full Exam - General 1994 Musculoskeletal gait and station Overall: normal gait 06/18/2016 None Full Exam - General 1994 Musculoskeletal gait and station Overall: normal station 06/18/2016 None Full Exam - General 1994 Integument inspection of skin Overall: few scattered moles, no gross abnormalities 06/18/2016 None Full Exam - General 1994 Neurologic cranial nerves Overall: crainial nerves 2 - 12 grossly intact 06/18/2016 None Full Exam - General 1994 Psychiatric orientation/consciousness Overall: oriented to person, place and time 06/18/2016 None Full Exam - General 1994 Cardiovascular auscultation of heart Overall: normal heart sounds 06/18/2016 None Full Exam - General 1994 Cardiovascular auscultation of heart Systolic murmur: holosystolic 06/18/2016 None Full Exam - General 1994 Cardiovascular auscultation of heart Systolic murmur grade: II/ 06/18/2016 None Full Exam - General 1994 Constitutional general appearance Overall: well developed 05/21/2016 None Full Exam - General 1994 Constitutional general appearance Overall: in no acute distress 05/21/2016 None Full Exam - General 1994 Constitutional general appearance Overall: well nourished 05/21/2016 None Full Exam - General 1994 Eyes conjunctiva/eyelids Overall: conjunctiva clear 05/21/2016 None Full Exam - General 1994 Eyes conjunctiva/eyelids Overall: eyelids normal 05/21/2016 None Full Exam - General 1994 Ears/Nose/Throat lips/teeth/gingiva Overall: benign lips 05/21/2016 None Full Exam - General 1994 Ears/Nose/Throat oral cavity/pharynx/larynx Overall: oral mucosa clear 05/21/2016 None Full Exam - General 1994 Respiratory auscultation Overall: breath sounds clear bilaterally 05/21/2016 None Full Exam - General 1994 Respiratory respiratory effort/rhythm Overall: no retractions 05/21/2016 None Full Exam - General 1994 Respiratory respiratory effort/rhythm Overall: normal rate 05/21/2016 None Full Exam - General 1994 Cardiovascular auscultation of heart Overall: regular rate 05/21/2016 None Full Exam - General 1994 Cardiovascular auscultation of heart Overall: normal heart sounds 05/21/2016 None Full Exam - General 1994 Musculoskeletal head and neck Overall: head atraumatic 05/21/2016 None Full Exam - General 1994 Psychiatric orientation/consciousness Overall: oriented to person, place and time 05/21/2016 None Full Exam - General 1994 Psychiatric mood and affect Overall: normal mood and affect 05/21/2016 None Full Exam - General 1994 Psychiatric appearance Overall: well-groomed, good eye contact 05/21/2016 None Full Exam - General 1994 Constitutional general appearance Development: well developed 04/29/2016 None Full Exam - General 1994 Constitutional general appearance Development: appears stated age 0304/29/2016 None Full Exam - General 1994 Eyes conjunctiva/eyelids Overall: conjunctiva clear 04/29/2016 None Full Exam - General 1994 Eyes conjunctiva/eyelids Overall: cornea clear 04/29/2016 None Full Exam - General 1994 Eyes conjunctiva/eyelids Overall: eyelids normal 04/29/2016 None Full Exam - General 1994 Eyes pupils and irises Overall: pupils equal, round, reactive to light and accomodation 04/29/2016 None Full Exam - General 1994 Ears/Nose/Throat otoscopic exam External auditory canal: drainage 04/29/2016 FUNGAL INFECTION SINCE JANUARY- DR. SHAW TREATING Full Exam - General 1994 Ears/Nose/Throat otoscopic exam External auditory canal: edematous 04/29/2016 None Full Exam - General 1994 Ears/Nose/Throat oral cavity/pharynx/larynx Overall: oral mucosa clear 04/29/2016 None Full Exam - General 1994 Ears/Nose/Throat oral cavity/pharynx/larynx Posterior Pharynx: clear post nasal drainage 04/29/2016 None Full Exam - General 1994 Neck thyroid Overall: normal size None Full Exam - General 1994 Neck thyroid Overall: normal consistency 04/29/2016 None Full Exam - General 1994 Neck thyroid Overall: nontender 04/29 None Full Exam - General 1994 Neck inspection of neck Overall: normal size 04/29/2016 None Full Exam - General 1994 Neck inspection of neck Overall: normal appearance 04/29/2016 None Full Exam - General 1994 Respiratory respiratory effort/rhythm Overall: no retractions 04/29/2016 None Full Exam - General 1994 Respiratory respiratory effort/rhythm Overall: normal rate 04/29/2016 None Full Exam - General 1994 Respiratory auscultation Upper lung field: inspiratory wheezes 04/29/2016 None Full Exam - General 1994 Respiratory auscultation Lower lung field: expiratory wheezes 04/29/2016 None Full Exam - General 1994 Respiratory auscultation Lower lung field: rhonchi 04/29/2016 None Full Exam - General 1994 Abdomen abdominal exam Overall: no tenderness 04/29/2016 None Full Exam - General 1994 Abdomen abdominal exam Overall: normal bowel sounds 04/29/2016 None Full Exam - General 1994 Lymphatic neck nodes Overall: anterior cervical chain benign 04/29/2016 None Full Exam - General 1994 Lymphatic neck nodes Overall: posterior cervical chain benign 04/29/2016 None Full Exam - General 1994 Integument inspection of skin Overall: few scattered moles, no gross abnormalities 04/29/2016 None Full Exam - General 1994 Neurologic mental status Overall: alert 04/29/2016 None Full Exam - General 1994 Neurologic mental status Overall: oriented 04/29/2016 None Full Exam - General 1994 Psychiatric orientation/consciousness Overall: oriented to person, place and time 04/29/2016 None Full Exam - ENT Constitutional general appearance Overall: well nourished 04/21/2016 None Full Exam - ENT Constitutional general appearance Overall: well developed 04/21/2016 None Full Exam - ENT Constitutional general appearance Overall: in no acute distress 04/21/2016 None Full Exam - ENT Ears/Nose/Throat otoscopic exam Overall: external auditory canals normal 04/21/2016 None Full Exam - ENT Ears/Nose/Throat nasal mucosa, septum, turbinates Drainage: clear 04/21/2016 None Full Exam - ENT Ears/Nose/Throat nasal mucosa, septum, turbinates Drainage: yellow 04/21/2016 None Full Exam - ENT Ears/Nose/Throat lips/teeth/gingiva Overall: benign lips 04/21/2016 None Full Exam - ENT Ears/Nose/Throat oropharynx Posterior Pharynx: clear post nasal drainage 04/21/2016 None Full Exam - ENT Face and Head palpation Left maxillary sinus: tender 04/21/2016 None Full Exam - ENT Face and Head palpation Right maxillary sinus: tender 04/21/2016 None Full Exam - ENT Respiratory inspection Overall: no retractions 04/21/2016 None Full Exam - ENT Respiratory inspection Overall: normal rate 09/2016 None Full Exam - ENT Respiratory auscultation Overall: breath sounds clear bilater ally 04/21/2016 None Full Exam - ENT Cardiovascular auscultation of heart Overall: regular rate 04/21/2016 None Full Exam - ENT Lymphatic palpation of lymph nodes Overall: anterior cervical chain benign 04/21/2016 None Full Exam - ENT Lymphatic palpation of lymph nodes Overall: posterior cervical chain benign 04/21/2016 None Full Exam - ENT Neurologic mood and affect Overall: normal mood 04/21/2016 None Full Exam - ENT Neurologic mood and affect Overall: normal affect 04/21/2016 None Full Exam - ENT Neurologic orientation Overall: oriented to person, place a nd time 04/21/2016 None Full Exam - ENT Ears/Nose/Throat otoscopic exam Overall: tympanic membranes normal 04/21/2016 None Full Exam - ENT Cardiovascular auscultation of heart Overall: normal heart sounds 04/21/2016 None Full Exam - General 1994 Constitutional general appearance Overall: well developed 02/20/2016 None Full Exam - General 1994 Constitutional general appearance Overall: in no acute distress 02/20/2016 None Full Exam - General 1994 Constitutional general appearance Overall: well nourished 02/20/2016 None Full Exam - General 1994 Eyes conjunctiva/eyelids Overall: conjunctiva clear 02/20/2016 None Full Exam - General 1994 Eyes pupils and irises Overall: pupils equal, round, reactive to light and accomodation 02/20/2016 None Full Exam - General 1994 Ears/Nose/Throat otoscopic exam Overall: external auditory canals clear 02/20/2016 None Full Exam - General 1994 Ears/Nose/Throat otoscopic exam Overall: tympanic membranes clear 02/20/2016 None Full Exam - General 1994 Ears/Nose/Throat oral cavity/pharynx/larynx Overall: oral mucosa clear 02/20/2016 None Full Exam - General 1994 Respiratory auscultation Overall: breath sounds clear bilaterally 02/20/2016 None Full Exam - General 1994 Respiratory respiratory effort/rhythm Overall: no retractions 02/20/2016 None Full Exam - General 1994 Respiratory respiratory effort/rhythm Overall: normal rate 02/20/2016 None Full Exam - General 1994 Cardiovascular auscultation of heart Overall: regular rate 02/20/2016 None Full Exam - General 1994 Cardiovascular auscultation of heart Overall: normal heart sounds 02/20/2016 None Full Exam - General 1994 Abdomen abdominal exam Overall: no tenderness 02/20/2016 None Full Exam - General 1994 Abdomen abdominal exam Overall: normal bowel sounds 02/20/2016 None Full Exam - General 1994 Lymphatic neck nodes Overall: anterior cervical chain benign 02/20/2016 None Full Exam - General 1994 Lymphatic neck nodes Overall: posterior cervical chain benign 02/20/2016 None Full Exam - General 1994 Musculoskeletal gait and station Overall: normal gait 02/20/2016 None Full Exam - General 1994 Musculoskeletal gait and station Overall: normal station 02/20/2016 None Full Exam - General 1994 Integument inspection of skin Overall: few scattered moles, no gross abnormalities 02/20/2016 None Full Exam - General 1994 Neurologic cranial nerves Overall: crainial nerves 2 - 12 grossly intact 02/20/2016 None Full Exam - General 1994 Psychiatric orientation/consciousness Overall: oriented to person, place and time 02/20/2016 None Full Exam - General 1994 Constitutional general appearance Overall: well developed 01/01/2016 None Full Exam - General 1994 Constitutional general appearance Overall: in no acute distress 01/01/2016 None Full Exam - General 1994 Constitutional general appearance Overall: well nourished 01/01/2016 None Full Exam - General 1994 Eyes conjunctiva/eyelids Overall: conjunctiva clear 01/01/2016 None Full Exam - General 1994 Eyes pupils and irises Overall: pupils equal, round, reactive to light and accomodation 01/01/2016 None Full Exam - General 1994 Ears/Nose/Throat otoscopic exam Overall: external auditory canals clear 01/01/2016 None Full Exam - General 1994 Ears/Nose/Throat otoscopic exam Overall: tympanic membranes clear 01/01/2016 None Full Exam - General 1994 Ears/Nose/Throat oral cavity/pharynx/larynx Overall: oral mucosa clear 01/01/2016 None Full Exam - General 1994 Respiratory respiratory effort/rhythm Overall: no retractions 01/01/2016 None Full Exam - General 1994 Respiratory respiratory effort/rhythm Overall: normal rate 01/01/2016 None Full Exam - General 1994 Cardiovascular auscultation of heart Overall: regular rate 01/01/2016 None Full Exam - General 1994 Cardiovascular auscultation of heart Overall: normal heart sounds 01/01/2016 None Full Exam - General 1994 Abdomen abdominal exam Overall: no tenderness 01/01/2016 None Full Exam - General 1994 Abdomen abdominal exam Overall: normal bowel sounds 01/01/2016 None Full Exam - General 1994 Lymphatic neck nodes Overall: anterior cervical chain benign 01/01/2016 None Full Exam - General 1994 Lymphatic neck nodes Overall: posterior cervical chain benign 01/01/2016 None Full Exam - General 1994 Integument inspection of skin Overall: few scattered moles, no gross abnormalities 01/01/2016 None Full Exam - General 1994 Neurologic cranial nerves Overall: crainial nerves 2 - 12 grossly intact 01/01/2016 None Full Exam - General 1994 Psychiatric orientation/consciousness Overall: oriented to person, place and time 01/01/2016 None Full Exam - General 1994 Respiratory auscultation Upper lung field: diminished 01/01/2016 None Full Exam - General 1994 Respiratory auscultation Upper lung field: rhonchi 01/01/2016 None Full Exam - General 1994 Respiratory auscultation Lower lung field: rhonchi 01/01/2016 None Full Exam - Orthopedics Constitutional general appearance Overall: well nourished 11/13/2015 None Full Exam - Orthopedics Constitutional general appearance Overall: well developed 11/13/2015 None Full Exam - Orthopedics Constitutional general appearance Overall: in no acute distress 11/13/2015 None Full Exam - Orthopedics Constitutional general appearance Overall: normal body habitus 11/13/2015 None Full Exam - Orthopedics Constitutional general appearance Overall: no deformities 11/13/2015 None Full Exam - Orthopedics Constitutional general appearance Overall: well groomed 11/13/2015 None Full Exam - Orthopedics Constitutional general appearance Overall: no assistive devices 11/13/2015 None Full Exam - Orthopedics Constitutional general appearance Overall: atraumatic 11/13/2015 None Full Exam - Orthopedics Constitutional general appearance Overall: cooperative 11/13/2015 None Full Exam - Orthopedics Constitutional general appearance Overall: healthy appearance 11/13/2015 None Full Exam - Orthopedics Constitutional general appearance Overall: pleasant 11/13/2015 None Full Exam - Orthopedics Constitutional general appearance Overall: relaxed 11/13/2015 None Full Exam - Orthopedics Psychiatric orientation/consciousness Overall: oriented to person, place and time 11/13/2015 None Full Exam - Orthopedics MS: right lo wer extremity insp & palp - RLE Knee: crepitus 11/13/2015 None Full Exam - Orthopedics MS: right lo wer extremity range of motion - RLE Knee: full range of motion 11/13/2015 None Full Exam - Orthopedics MS: right lo wer extremity stability - RLE Knee: st able knees 11/13/2015 None Full Exam - Orthopedics MS: right lo wer extremity strength & tone - RLE Overall: full strength in RLE 11/13/2015 None Full Exam - General 1994 Constitutional general appearance Overall: well developed 11/07/2015 None Full Exam - General 1994 Constitutional general appearance Overall: in no acute distress 11/07/2015 None Full Exam - General 1994 Constitutional general appearance Overall: well nourished 11/07/2015 None Full Exam - General 1994 Eyes conjunctiva/eyelids Overall: conjunctiva clear 11/07/2015 None Full Exam - General 1994 Eyes pupils and irises Overall: pupils equal, round, reactive to light and accomodation 11/07/2015 None Full Exam - General 1994 Ears/Nose/Throat otoscopic exam Overall: external auditory canals clear 11/07/2015 None Full Exam - General 1994 Ears/Nose/Throat otoscopic exam Overall: tympanic membranes clear 11/07/2015 None Full Exam - General 1994 Ears/Nose/Throat oral cavity/pharynx/larynx Overall: oral mucosa clear 11/07/2015 None Full Exam - General 1994 Respiratory auscultation Overall: breath sounds clear bilaterally 11/07/2015 None Full Exam - General 1994 Respiratory respiratory effort/rhythm Overall: no retractions 11/07/2015 None Full Exam - General 1994 Respiratory respiratory effort/rhythm Overall: normal rate 11/07/2015 None Full Exam - General 1994 Cardiovascular auscultation of heart Overall: regular rate 11/07/2015 None Full Exam - General 1994 Cardiovascular auscultation of heart Overall: normal heart sounds 11/07/2015 None Full Exam - General 1994 Abdomen abdominal exam Overall: no tenderness 11/07/2015 None Full Exam - General 1994 Abdomen abdominal exam Overall: normal bowel sounds 11/07/2015 None Full Exam - General 1994 Lymphatic neck nodes Overall: anterior cervical chain benign 11/07/2015 None Full Exam - General 1994 Lymphatic neck nodes Overall: posterior cervical chain benign 11/07/2015 None Full Exam - General 1994 Musculoskeletal gait and station Overall: normal gait 11/07/2015 None Full Exam - General 1994 Musculoskeletal gait and station Overall: normal station 11/07/2015 None Full Exam - General 1994 Integument inspection of skin Overall: few scattered moles, no gross abnormalities 11/07/2015 None Full Exam - General 1994 Neurologic cranial nerves Overall: crainial nerves 2 - 12 grossly intact 11/07/2015 None Full Exam - General 1994 Psychiatric orientation/consciousness Overall: oriented to person, place and time 11/07/2015 None Full Exam - General 1994 Constitutional general appearance Overall: well developed 08/07/2015 None Full Exam - General 1994 Constitutional general appearance Overall: in no acute distress 08/07/2015 None Full Exam - General 1994 Constitutional general appearance Overall: well nourished 08/07/2015 None Full Exam - General 1994 Psychiatric orientation/consciousness Overall: oriented to person, place and time 08/07/2015 None Full Exam - General 1994 Neurologic cranial nerves Overall: crainial nerves 2 - 12 grossly intact 08/07/2015 None Full Exam - General 1994 Integument inspection of skin Overall: few scattered moles, no gross abnormalities 08/07/2015 None Full Exam - General 1994 Musculoskeletal gait and station Overall: normal station 08/07/2015 None Full Exam - General 1994 Musculoskeletal gait and station Overall: normal gait 08/07/2015 None Full Exam - General 1994 Lymphatic neck nodes Overall: anterior cervical chain benign 08/07/2015 None Full Exam - General 1994 Lymphatic neck nodes Overall: posterior cervical chain benign 08/07/2015 None Full Exam - General 1994 Abdomen abdominal exam Overall: no tenderness 08/07/2015 None Full Exam - General 1994 Abdomen abdominal exam Overall: normal bowel sounds 08/07/2015 None Full Exam - General 1994 Cardiovascular auscultation of heart Overall: regular rate 08/07/2015 None Full Exam - General 1994 Cardiovascular auscultation of heart Overall: normal heart sounds 08/07/2015 None Full Exam - General 1994 Respiratory auscultation Overall: breath sounds clear bilaterally 08/07/2015 None Full Exam - General 1994 Respiratory respiratory effort/rhythm Overall: no retractions 08/07/2015 None Full Exam - General 1994 Respiratory respiratory effort/rhythm Overall: normal rate 08/07/2015 None Full Exam - General 1994 Ears/Nose/Throat otoscopic exam Overall: external auditory canals clear 08/07/2015 None Full Exam - General 1994 Ears/Nose/Throat otoscopic exam Overall: tympanic membranes clear 08/07/2015 None Full Exam - General 1994 Ears/Nose/Throat oral cavity/pharynx/larynx Overall: oral mucosa clear 08/07/2015 None Full Exam - General 1994 Eyes conjunctiva/eyelids Overall: conjunctiva clear 08/07/2015 None Full Exam - General 1994 Eyes pupils and irises Overall: pupils equal, round, reactive to light and accomodation 08/07/2015 None Procedures Procedure Codes Date TRIAMCINOLONE ACET I [place] NOS CPT-4: J3301 08/28/2018 DRAIN/INJECT JOINT/B URSA CPT-4: 74895 08/28/2018 TRIAMCINOLONE ACET I [place] NOS CPT-4: J3301 04/26/2018 DRAIN/INJECT JOINT/B URSA CPT-4: 04/26/2018 DRAIN/INJECT JOINT/B URSA CPT-4: 89636 08/25/2017 PPPS, SUBSEQ VISIT CPT- 4: G0439 05/30/2017 ADMIN INFLUENZA VIRU S VAC CPT-4: G0008 12/21/2016 FLU VACC PRSV FREE I NC ANTIG CPT-4: 53920 12/21/2016 PPPS, SUBSEQ VISIT CPT- 4: G0439 05/21/2016 TRIAMCINOLONE ACET I [place] NOS CPT-4: J3301 04/21/2016 THER/PROPH/DIAG INJ SC/IM CPT-4: 44584 04/21/2016 DRAIN/INJECT JOINT/B URSA CPT-4: 26344 11/13/2015 PNEUMOCOCCAL VACC [address]: 78972617 CPT-4: 43460 11/13/2015 ADMIN PNEUMOCOCCAL V ACCINE SNOMED CT: 22251628 CPT-4: G0009 11/13/2015 ADMIN INFLUENZA VIRU S VAC CPT-4: G0008 11/11/2015 FLU VACC 4 AZUL 3 YRS PLUS IM SNOMED CT: 64357790 CPT-4: 76964 11/11/2015 Vital Signs Date Vital 09/06/2018 Blood Pressure 1: 130/78 Code: 8480-6 BMI: 25.2 Code: 25920-8 Heart Rate 1: 70 bpm Height: 5'7" SpO2: 98% Weight: 161 lbs 08/28/2018 Blood Pressure 1: 126/70 Code: 8480-6 BMI: 25.5 Code: 15046-4 Heart Rate 1: 62 bpm Height: 5'7" SpO2: 97% Weight: 163 lbs 05/22/2018 Blood Pressure 1: 130/72 Code: 8480-6 BMI: 25.5 Code: 69369-9 Heart Rate 1: 84 bpm Height: 5'7" SpO2: 96% Weight: 163 lbs 04/26/2018 Blood Pressure 1: 118/56 Code: 8480-6 BMI: 25.5 Code: 61114-5 Heart Rate 1: 60 bpm Height: 5'7" SpO2: 96% Weight: 163 lbs 12/21/2017 Blood Pressure 1: 132/56 Code: 8480-6 BMI: 25.7 Code: 68285-2 Heart Rate 1: 58 bpm Height: 5'7" SpO2: 93% Weight: 164 lbs 08/25/2017 Blood Pressure 1: 126/74 Code: 8480-6 BMI: 26.2 Code: 06889-8 Heart Rate 1: 70 bpm Height: 5'7" SpO2: 94% Weight: 167 lbs 05/30/2017 Blood Pressure 1: 120/66 Code: 8480-6 BMI: 26.6 Code: 80371-0 Heart Rate 1: 66 bpm Height: 5'7" SpO2: 95% Waist Measure (cm): 97 cm Weight: 170 lbs 04/20/2017 Blood Pressure 1: 138/78 Code: 8480-6 BMI: 26.6 Code: 29725-9 Heart Rate 1: 86 bpm Height: 5'7" SpO2: 96% Weight: 170 lbs 01/21/2017 Blood Pressure 1: 136/70 Code: 8480-6 BMI: 26.3 Code: 49991-8 Heart Rate 1: 79 bpm Height: 5'7" SpO2: 95% Weight: 168 lbs 10/22/2016 Blood Pressure 1: 134/72 Code: 8480-6 BMI: 26.3 Code: 68045-9 Heart Rate 1: 70 bpm Height: 5'7" SpO2: 95% Weight: 168 lbs 10/04/2016 Blood Pressure 1: 142/80 Code: 8480-6 BMI: 26.6 Code: 19659-6 Heart Rate 1: 72 bpm Height: 5'7" SpO2: 93% Weight: 170 lbs 06/18/2016 Blood Pressure 1: 132/76 Code: 8480-6 BMI: 26.2 Code: 87567-0 Heart Rate 1: 65 bpm Height: 5'7" SpO2: 95% Weight: 167 lbs 8 oz 05/21/2016 Blood Pressure 1: 126/76 Code: 8480-6 BMI: 26.0 Code: 61767-8 Heart Rate 1: 72 bpm Height: 5'7" SpO2: 98% Weight: 166 lbs 04/29/2016 Blood Pressure 1: 128/70 Code: 8480-6 BMI: 25.7 Code: 10080-9 Heart Rate 1: 67 bpm Height: 5'7" SpO2: 97% Temperature: 36.3 (C ) / 97.4 (F) Weight: 164 lbs 04/21/2016 Blood Pressure 1: 130/62 Code: 8480-6 BMI: 26.3 Code: 07544-8 Heart Rate 1: 74 bpm Height: 5'7" SpO2: 96% Temperature: 37.0 (C ) / 98.6 (F) Weight: 168 lbs 02/20/2016 Blood Pressure 1: 120/64 Code: 8480-6 BMI: 26.2 Code: 88853-1 Heart Rate 1: 65 bpm Height: 5'7" SpO2: 94% Weight: 167 lbs 01/01/2016 Blood Pressure 1: 106/60 Code: 8480-6 BMI: 25.7 Code: 61549-0 Heart Rate 1: 73 bpm Height: 5'7" SpO2: 98% Weight: 164 lbs 11/13/2015 Blood Pressure 1: 122/86 Code: 8480-6 BMI: 25.8 Code: 45091-7 Heart Rate 1: 80 bpm Height: 5'7" SpO2: 92% Weight: 165 lbs 11/07/2015 Blood Pressure 1: 118/64 Code: 8480-6 BMI: 25.8 Code: 49151-6 Heart Rate 1: 66 bpm Height: 5'7" SpO2: 95% Weight: 165 lbs 08/07/2015 Blood Pressure 1: 122/80 Code: 8480-6 BMI: 24.4 Code: 10455-1 Heart Rate 1: 74 bpm Height: 5'7" SpO2: 94% Weight: 156 lbs Functional Status No Functional Status data History of Present Illness Symptom Name Status Resu lt Effective Date Notes Location-Major on the legs 09/06/2018 None Location-Major on the arms 09/06/2018 None Location-[place]unk on the left upper chest 09/06/2018 None Pertinent Findings Den ies fever 09/06/2018 None Location on the right 08/28/2018 None Quality chronic 08/28/2018 None Quality worsening 08/28/2018 None Quality stable 08/28/2018 None Onset and Resolution o ngoing 08/28/2018 None Onset of Symptom durin g adulthood 08/28/2018 None Location on the left [place] 05/22/2018 None Quality intermittent 05/22/2018 None Onset and Resolution g radual in onset 05/22/2018 None Onset and Resolution o ngoing 05/22/2018 None Onset of Symptom 6 wee ks ago 05/22/2018 None Frequency of Episodes daily 05/22/2018 None Pertinent Findings Den ies cough 05/22/2018 None Pertinent Findings Den ies swelling 05/22/2018 None Location on the left 05/22/2018 None Quality intermittent 05/22/2018 None Onset and Resolution o ngoing 05/22/2018 None Pertinent Findings dec reased range of motion 05/22/2018 None Pertinent Findings kita n with movement 05/22/2018 None Quality chronic 04/26/2018 None Quality worsening 04/26/2018 None Onset and Resolution o ngoing 04/26/2018 None Pertinent Findings Den ies fever 04/26/2018 None Location on the right 04/26/2018 None Quality chronic 04/26/2018 None Quality worsening 04/26/2018 None knee pain Location on th e right 12/21/2017 None knee pain Quality catchi ng 12/21/2017 None knee pain Quality giving way 12/21/2017 None knee pain Limitation on Activities moderately limits activities 12/21/2017 None knee pain Pertinent Findings Denies numbness 12/21/2017 None knee pain Pertinent Findings pain with movement 12/21/2017 None knee pain Pertinent Findings stiffness 12/21/2017 None hypertension Quality sta ble 12/21/2017 None hypertension Onset and Resolution ongoing 12/21/2017 None hypertension Onset of Symptom during adulthood 12/21/2017 None hypertension Blood Pressure Values not checking blood pressure at home 12/21/2017 None hypertension Frequency of Episodes daily 12/21/2017 None hypertension Triggers no known associated factors 12/21/2017 None hypertension Alleviating Factors medication 12/21/2017 None hypertension Pertinent Findings Denies anxiety 12/21/2017 None hypertension Pertinent Findings Denies dizziness 12/21/2017 None hypertension Pertinent Findings Denies dyspnea 12/21/2017 None hypertension Pertinent Findings Denies edema 12/21/2017 None knee pain Location on th e right 08/25/2017 None knee pain Quality giving way 08/25/2017 None knee pain Quality catchi ng 08/25/2017 None knee pain Limitation on Activities moderately limits activities 08/25/2017 None knee pain Pertinent Findings pain with movement 08/25/2017 None knee pain Pertinent Findings Denies numbness 08/25/2017 None knee pain Pertinent Findings stiffness 08/25/2017 None Annual Medicare Wellness Exam Alcohol Use does not drink any alcohol 05/30/2017 None Annual Medicare Wellness Exam Aspirin Use no 05/30/2017 None Annual Medicare Wellness Exam Blood Glucose (self reported) don't know 05/30/2017 No ne Annual Medicare Wellness Exam Blood Pressure (self reported) don't know 05/30/2017 No ne Annual Medicare Wellness Exam Choles terol (self reported) don't know 05/30/2017 No ne Annual Medicare Wellness Exam Depres ahsan (last 6 months) almost never 05/30/2017 None Annual Medicare Wellness Exam Depres ahsan or Hopelessness almost never 05/30/2017 None Annual Medicare Wellness Exam Descri be Your Health very good 05/30/2017 Non e Annual Medicare Wellness Exam Exerci se Habits exercises 7 days per week 05/30/2017 None Annual Medicare Wellness Exam Exerci se Habits exercises 60 minutes per day 05/30/2017 None Annual Medicare Wellness Exam Handli ng Stress usually [place] effectively 05/30/2017 None Annual Medicare Wellness Exam Hemagl obin A-1C (self reported) don't know 05/30/2017 No ne Annual Medicare Wellness Exam Hours of Sleep 8 05/30/2017 None Annual Medicare Wellness Exam Intera ction with Friends yes 05/30/2017 None Annual Medicare Wellness Exam Intere sts & Pleasure most of the time 05/30/2017 None Annual Medicare Wellness Exam Life S atisfaction very satisfied 05/30/2017 None Annual Medicare Wellness Exam Motor Vehicle Safety always fastens seat belt: y 05/31/19 18 None Annual Medicare Wellness Exam Motor Vehicle Safety drives after drinking: n 05/30/2017 None Annual Medicare Wellness Exam Motor Vehicle Safety rides with someone who has been drinking: n 05/30/2017 None Annual Medicare Wellness Exam Nutrition servings of fried food / high fat foods per day: 1 05/30/2017 None Annual Medicare Wellness Exam Nutrition servings of high fiber / whole grain per day: 3 05/30/2017 None Annual Medicare Wellness Exam Nutrition servings of vegetables / fruit per day: 5 05/30/2017 None Annual Medicare Wellness Exam Smokin g and Tobacco Use non smoker 05/30/2017 No ne Annual Medicare Wellness Exam Social & Emotional Support usually 05/30/2017 None Annual Medicare Wellness Exam Stress some of the time 05/30/2017 None Annual Medicare Wellness Exam Sun Exposure protects skin when outdoors: y 05/30/2017 None hypertension Quality sta ble 04/20/2017 None hypertension Onset and Resolution ongoing 04/20/2017 None hypertension Onset of Symptom during adulthood 04/20/2017 None hypertension Blood Pressure Values not checking blood pressure at home 04/20/2017 None hypertension Frequency of Episodes daily 04/20/2017 None hypertension Triggers no known associated factors 04/20/2017 None hypertension Alleviating Factors medication 04/20/2017 None hypertension Pertinent Findings Denies anxiety 04/20/2017 None hypertension Pertinent Findings Denies dizziness 04/20/2017 None hypertension Pertinent Findings Denies dyspnea 04/20/2017 None hypertension Pertinent Findings Denies edema 04/20/2017 None hypertension Quality sta ble 01/21/2017 None hypertension Onset and Resolution ongoing 01/21/2017 None hypertension Blood Pressure Values not checking blood pressure at home 01/21/2017 None hypertension Frequency of Episodes daily 01/21/2017 None hypertension Pertinent Findings Denies anxiety 01/21/2017 None hypertension Pertinent Findings Denies dizziness 01/21/2017 None hypertension Pertinent Findings Denies dyspnea 01/21/2017 None hypertension Pertinent Findings Denies edema 01/21/2017 None hypertension Onset of Symptom during adulthood 01/21/2017 None hypertension Triggers no known associated factors 01/21/2017 None hypertension Alleviating Factors medication 01/21/2017 None edema Location on the ri ght ankle 10/22/2016 None edema Quality constant 10/22/2016 None edema Onset and Resolution resolved 10/22/2016 None edema Onset of Symptom _ months ago 10/22/2016 None edema Limitation on Activities does not limit activities 10/22/2016 None edema Frequency of Episodes decreasing 10/22/2016 None edema Triggers no known associated factors 10/22/2016 None edema Alleviating Factors activity 10/22/2016 compression sock rash Location-Major on t he upper body 10/04/2016 None rash Location-Major on t he lower body 10/04/2016 None rash Color red 10/04/2016 None rash Onset and Resolution ongoing 10/04/2016 None rash Onset of Symptom 1 month ago 10/04/2016 None rash Triggers no known t riggers 10/04/2016 None edema Onset and Resolution gradual in onset 10/04/2016 None edema Onset of Symptom 1 months ago 10/04/2016 None edema Quality constant 10/04/2016 None edema Location on the ri ght ankle 10/04/2016 None hypertension Quality sta ble 06/18/2016 None hypertension Onset and Resolution ongoing 06/18/2016 None hypertension Blood Pressure Values not checking blood pressure at home 06/18/2016 None hypertension Frequency of Episodes daily 06/18/2016 None hypertension Pertinent Findings Denies anxiety 06/18/2016 None hypertension Pertinent Findings Denies dizziness 06/18/2016 None hypertension Pertinent Findings Denies dyspnea 06/18/2016 None diabetes mellitus Quality NIDDM 06/18/2016 None diabetes mellitus Severity mild 06/18/2016 None diabetes mellitus Alleviating Factors diet 06/18/2016 None diabetes mellitus Pertinent Findings deafness 06/18/2016 None diabetes mellitus Pertinent Findings Denies nausea 06/18/2016 None diabetes mellitus Pertinent Findings Denies numbness 06/18/2016 None diabetes mellitus Onset of Symptom onset as an adult 06/18/2016 None hypertension Pertinent Findings Denies edema 06/18/2016 None diabetes mellitus Test results Pt not checking blood glucose readings at home 06/18/2016 None diabetes mellitus Test results HgbA1c level 6.0 06/18/2016 None Annual Medicare Wellness Exam Alcohol Use does not drink any alcohol 05/21/2016 None Annual Medicare Wellness Exam Aspirin Use yes 05/21/2016 81 Annual Medicare Wellness Exam Blood Glucose (self reported) don't know 05/21/2016 No ne Annual Medicare Wellness Exam Blood Pressure (self reported) don't know 05/21/2016 No ne Annual Medicare Wellness Exam Choles terol (self reported) don't know 05/21/2016 No ne Annual Medicare Wellness Exam Depres ahsan (last 6 months) almost never 05/21/2016 None Annual Medicare Wellness Exam Depres ahsan or Hopelessness almost never 05/21/2016 None Annual Medicare Wellness Exam Descri be Your Health fair 05/21/2016 None Annual Medicare Wellness Exam Exerci se Habits exercises 5 days per week 05/21/2016 None Annual Medicare Wellness Exam Handli ng Stress usually [place] effectively 05/21/2016 None Annual Medicare Wellness Exam Hemagl obin A-1C (self reported) don't know 05/21/2016 No ne Annual Medicare Wellness Exam Hours of Sleep 8 05/21/2016 None Annual Medicare Wellness Exam Intera ction with Friends yes 05/21/2016 None Annual Medicare Wellness Exam Intere sts & Pleasure some of the time 05/21/2016 None Annual Medicare Wellness Exam Life S atisfaction satisfied 05/21/2016 Non e Annual Medicare Wellness Exam Motor Vehicle Safety always fastens seat belt: y 05/22/19 17 None Annual Medicare Wellness Exam Nutrition servings of vegetables / fruit per day: 3 serving 05/21/2016 None Annual Medicare Wellness Exam Smokin g and Tobacco Use non smoker 05/21/2016 No ne Annual Medicare Wellness Exam Social & Emotional Support usually 05/21/2016 None Annual Medicare Wellness Exam Stress some of the time 05/21/2016 None Annual Medicare Wellness Exam Sun Exposure protects skin when outdoors: n 05/21/2016 None sinus congestion Location on both sides 04/29/2016 None sinus congestion Quality fullness 04/29/2016 None sinus congestion Quality pressure 04/29/2016 None sinus congestion Onset and Resolution sudden in onset 04/29/2016 None sinus congestion Onset of Symptom 3 days ago 04/29/2016 None sinus congestion Onset and Resolution ongoing 04/29/2016 None sinus congestion Pertinent Findings cough 04/29/2016 None sinus congestion Pertinent Findings decreased energy level 04/29/2016 None sinus congestion Pertinent Findings Denies fever 04/29/2016 None sinus congestion Pertinent Findings hoarseness 04/29/2016 None sinus congestion Severity moderate 04/29/2016 None sinus congestion Frequency of Episodes increasing 04/29/2016 None sinus congestion Location on both sides 04/21/2016 None sinus congestion Quality fullness 04/21/2016 None sinus congestion Quality pressure 04/21/2016 None sinus congestion Onset and Resolution sudden in onset 04/21/2016 None sinus congestion Onset of Symptom 3 days ago 04/21/2016 None sore throat Location dif fusely 04/21/2016 None sore throat Quality cons tant 04/21/2016 None sore throat Quality scra tchy 04/21/2016 None sore throat Onset and Resolution sudden in onset 04/21/2016 None sore throat Onset of Symptom 3 days ago 04/21/2016 None sore throat Frequency of Episodes daily 04/21/2016 None hypertension Quality sta ble 02/20/2016 None hypertension Onset and Resolution ongoing 02/20/2016 None hypertension Blood Pressure Values not checking blood pressure at home 02/20/2016 None hypertension Frequency of Episodes daily 02/20/2016 None hypertension Pertinent Findings Denies anxiety 02/20/2016 None hypertension Pertinent Findings Denies dizziness 02/20/2016 None hypertension Pertinent Findings Denies dyspnea 02/20/2016 None diabetes mellitus Quality NIDDM 02/20/2016 None diabetes mellitus Severity mild 02/20/2016 None diabetes mellitus Alleviating Factors diet 02/20/2016 None diabetes mellitus Pertinent Findings deafness 02/20/2016 None diabetes mellitus Pertinent Findings Denies nausea 02/20/2016 None diabetes mellitus Pertinent Findings Denies numbness 02/20/2016 None diabetes mellitus Test results HgbA1c level 5.8% 02/20/2016 None diabetes mellitus Blood glucose levels _ 02/20/2016 None diabetes mellitus Glucose monitoring does not test 02/20/2016 None diabetes mellitus Onset of Symptom onset as an adult 02/20/2016 None cough Quality intermitte nt 01/01/2016 None cough Quality productive 01/01/2016 None cough Onset and Resolution sudden in onset 01/01/2016 None cough Onset of Symptom 1 weeks ago 01/01/2016 None cough Pertinent Findings Denies chills 01/01/2016 None cough Pertinent Findings Denies fever 01/01/2016 None cough Pertinent Findings sputum production 01/01/2016 yellowish nasal discharge Location in both nares 01/01/2016 None nasal discharge Quality acute 01/01/2016 None nasal discharge Quality intermittent 01/01/2016 None nasal discharge Onset and Resolution sudden in onset 01/01/2016 None nasal discharge Onset of Symptom 1 weeks ago 01/01/2016 None nasal discharge Pertinent Findings cough 01/01/2016 None nasal discharge Pertinent Findings Denies dyspnea 01/01/2016 None nasal discharge Pertinent Findings Denies fever 01/01/2016 None nasal discharge Pertinent Findings sneezing 01/01/2016 None knee pain Location on th e right 11/13/2015 None knee pain Quality tender ness 11/13/2015 None knee pain Quality chronic 11/13/2015 None knee pain Onset of Symptom _ years ago 11/13/2015 None knee pain Frequency of Episodes daily 11/13/2015 None knee pain Limitation on Activities allows weight bearing activity 11/13/2015 None knee pain Pertinent Findings Denies decreased range of motion 11/13/2015 None knee pain Pertinent Findings pain with movement 11/13/2015 None hypertension Quality sta ble 11/07/2015 None hypertension Onset and Resolution ongoing 11/07/2015 None hypertension Blood Pressure Values not checking blood pressure at home 11/07/2015 None hypertension Frequency of Episodes daily 11/07/2015 None hypertension Pertinent Findings Denies anxiety 11/07/2015 None hypertension Pertinent Findings Denies dizziness 11/07/2015 None hypertension Pertinent Findings Denies dyspnea 11/07/2015 None diabetes mellitus Quality NIDDM 11/07/2015 None diabetes mellitus Pertinent Findings deafness 11/07/2015 None diabetes mellitus Pertinent Findings Denies nausea 11/07/2015 None diabetes mellitus Pertinent Findings Denies numbness 11/07/2015 None diabetes mellitus Test results HgbA1c level 5.7% 11/07/2015 None diabetes mellitus Severity mild 11/07/2015 None diabetes mellitus Test results Pt not checking blood glucose readings at home 11/07/2015 None diabetes mellitus Blood glucose levels doesn't test 11/07/2015 None diabetes mellitus Alleviating Factors diet 11/07/2015 None hypertension Quality sta ble 08/07/2015 None hypertension Onset and Resolution ongoing 08/07/2015 None hypertension Blood Pressure Values not checking blood pressure at home 08/07/2015 None hypertension Frequency of Episodes daily 08/07/2015 None hypertension Pertinent Findings Denies anxiety 08/07/2015 None hypertension Pertinent Findings Denies dizziness 08/07/2015 None hypertension Pertinent Findings Denies dyspnea 08/07/2015 None diabetes mellitus Quality NIDDM 08/07/2015 None diabetes mellitus Glucose monitoring does not test 08/07/2015 None diabetes mellitus Pertinent Findings deafness 08/07/2015 None diabetes mellitus Pertinent Findings Denies nausea 08/07/2015 None diabetes mellitus Pertinent Findings Denies numbness 08/07/2015 None hyperlipidemia Severity mild 08/07/2015 None hyperlipidemia Pertinent Findings Denies edema 08/07/2015 None hyperlipidemia Pertinent Findings Denies nausea 08/07/2015 None hyperlipidemia Pertinent Findings weight loss 08/07/2015 None Advance Directives No Advance Directive data Encounters Encounter Performer Loca tion Codes Date [id number] EST. PATIENT, LEVEL III Diagnosis: Other urticaria[ICD10: L50.8] Diagnosis: Rash and other nonspecific skin eruption[ICD10: R21] Lakeisha Hoskins MD, [facility] CPT-4: 04619 09/06/201865664 EST. PATIENT, LEVEL III Diagnosis: Type 2 diabetes mellitus without complications[ICD10: E11.9] Diagnosis: Essential (primary) hypertension[ICD10: I10] Diagnosis: Pain in right knee[ICD10: M25.561] Diagnosis: Primary generalized (osteo)arthritis[ICD10: M15.0] Lakeisha oHskins MD, [facility] CPT-4: 05976 08/28/2018 ([id number]) 81632 EST. P ATIENT, LEVEL III Diagnosis: Pain in left hip[ICD10: M25.552] Diagnosis: Pain in left shoulder[ICD10: M25.512] Nancy Hoskins MD, [facility] CPT-4: 57521 05/22/2018 92592 EST. PATIENT, LEVEL III Diagnosis: Essential (primary) hypertension[ICD10: I10] Diagnosis: Pain in right knee[ICD10: M25.561] Diagnosis: Pain in left shoulder[ICD10: M25.512] Lakeisha Hoskins MD, [facility] CPT- 4: 01003 04/26/2018 57321 EST. PATIENT, LEVEL IV Diagnosis: Type 2 diabetes mellitus without complications[ICD10: E11.9] Diagnosis: Essential (primary) hypertension[ICD10: I10] Diagnosis: Pain in right knee[ICD10: M25.561] Lakeisha Hoskins MD, [facility] CPT-4: 33638 12/21/2017 58064 EST. PATIENT, LEVEL IV Diagnosis: Type 2 diabetes mellitus without complications[ICD10: E11.9] Diagnosis: Essential (primary) hypertension[ICD10: I10] Diagnosis: Pain in right knee[ICD10: M25.561] Lakeisha Hoskins MD, [facility] CPT-4: 33164 08/25/2017 26565 EST. PATIENT, LEVEL IV Diagnosis: Type 2 diabetes mellitus without complications[ICD10: E11.9] Diagnosis: Essential (primary) hypertension[ICD10: I10] Lakeisha Hoskins MD, [facility] CPT-4: 88855 04/20/2017 ([id number]) 69674 EST. P ATIENT, LEVEL III Diagnosis: Essential (primary) hypertension[ICD10: I10] Diagnosis: Obstructive sleep apnea (adult) (pediatric)[ICD10: G47.33] Nancy Hoskins MD, [facility] CPT-4: 12510 01/21/2017 ([id number]) 21916 EST. P ATIENT, LEVEL IV Diagnosis: Essential (primary) hypertension[ICD10: I10] Diagnosis: Type 2 diabetes mellitus without complications[ICD10: E11.9] Diagnosis: Obstructive sleep apnea (adult) (pediatric)[ICD10: G47.33] Nancy Hoskins MD, [facility] CPT-4: 96313 10/22/2016 ([id number]) 60205 EST. P ATIENT, LEVEL III Diagnosis: Localized edema[ICD10: R60.0] Diagnosis: Rash and other nonspecific skin eruption[ICD10: R21] Nancy Hoskins MD, [facility] CPT-4: 46770 10/04/2016 ([id number]) 76011 EST. P ATIENT, LEVEL IV Diagnosis: Essential (primary) hypertension[ICD10: I10] Diagnosis: Type 2 diabetes mellitus without complications[ICD10: E11.9] Diagnosis: Mixed hyperlipidemia[ICD10: E78.2] Nancy Hoskins MD, [facility] CPT-4: 90071 06/18/2016 ([id number]) 23379 EST. P ATIENT, LEVEL III Diagnosis: Cough[ICD10: R05] Diagnosis: Acute bronchitis, unspecified[ICD10: J20.9] Nancy Hsokins MD, [facility] CPT-4: 96521 04/29/2016 25701 EST. PATIENT, LEVEL IV Diagnosis: Other acute sinusitis[ICD10: J01.80] Diagnosis: Other allergic rhinitis[ICD10: J30.89] Lakeisha Hoskins MD, [facility] CPT-4: 57248 04/21/2016 ([id number]) 54739 EST. P ATIENT, LEVEL IV Diagnosis: Essential (primary) hypertension[ICD10: I10] Diagnosis: Type 2 diabetes mellitus without complications[ICD10: E11.9] Diagnosis: Mixed hyperlipidemia[ICD10: E78.2] Diagnosis: Primary generalized (osteo)arthritis[ICD10: M15.0] Nancy Hoskins MD, [facility] CPT-4: 72597 02/20/2016 ([id number]) 92983 EST. P ATIENT, LEVEL IV Diagnosis: Cough[ICD10: R05] Diagnosis: Acute bronchitis due to Hemophilus influenzae[ICD10: J20.1] Diagnosis: Type 2 diabetes mellitus without complications[ICD10: E11.9] Diagnosis: Essential (primary) hypertension[ICD10: I10] Charlene Hoskins MD, [facility] CPT-4: 60078 01/01/2016 ([id number]) 93750 EST. P ATIENT, LEVEL IV Diagnosis: Essential (primary) hypertension[ICD10: I10] Diagnosis: Mixed hyperlipidemia[ICD10: E78.2] Diagnosis: Type 2 diabetes mellitus without complications[ICD10: E11.9] Nancy Hoskins MD, [facility] CPT-4: 46600 11/07/2015 OFFICE VISIT, NEW - LEVEL 4 Diagnosis: Type 2 diabetes mellitus without complications[ICD10: E11.9] Diagnosis: Essential (primary) hypertension[ICD10: I10] Diagnosis: Mixed hyperlipidemia[ICD10: E78.2] Diagnosis: Elevated prostate specific antigen [PSA][ICD10: R97.2] Nancy Hoskins MD, [facility] CPT-4: 32120 08/07/2015 Plan of Care Planned Activity Notes C odes Status Date Visit Plan: Rash - The patient was instructed in appropriate wound care. The patient was instructed to use the antibiotic ointment as per RX. The patient is to call for any change in symptoms, increase in size of the lesion, increase in pain, worsening redness, warmth, discharge. Allergic Reaction/Hives - discussed diagnosis with patient, need to avoid allergen, and when/if the patient should go to the emergency room. Pt was instructed to take benadryl 25mg q 6 hours x 48 hours, and pepcid 20mg bid x 48 hours, pt also given RX for prednisone taper. 09/06/2018 Appointment: Lakeisha Putnam WPtel: [address] [place], [place] [phone] (30 min) [facility] 09/06/2018 Patient Education: Patient Medication Summary Completed 09/06/2018 Patient Education: Patient Medication Summary Completed 09/01/2018 Care Plan: B12 add to blood from 08/28 Pending 09/01/2018 Visit Plan: Hypertension - well con trolled - continue with current medications, continue with no added salt diet. Pt has been encouraged to exercise daily. The pt has been advised to call the office if there are any acute concerns about change in blood pressure readings at home. Joint Injection - Pt was given post - injection instructions. The pt has been advised to use anti-inflammatories post injection today, ice to the injected site, call if redness, warmth, or increased pain occurs at the site of injection. Diabetes Mellitus - I have recommended for the patient to have follow up labs prior to the next office visit. The patient has been instructed to continue with current medications as previously directed, continue with regular FSBS monitoring to assure continued control of diabetes. Pt to call for any acute concerns, complaints, or if the blood glucose readings are starting to become less controlled. I have recommended for the patient to follow more strictly to the diabetic diet as discussed in clinic to allow for greater blood glucose control. 08/28/2018 Appointment: Lakeisha Putnam WPtel: [facility] (30 min) Complex 08/28/2018 Patient Education: Patient Medication Summary Completed 08/28/2018 Patient Education: Diabetes Completed 08/28/2018 Appointment: Lakeisha Putnam WPtel: [facility] (15 min) Moderate 08/21/2018 Visit Plan: Left shoulder pain -sta rted six weeks ago after a fall -will get xrays today and proceed as indicated -okay to take tylenol as needed for pain Left hip pain -also started after fall -xray hip today as well 05/22/2018 Appointment: Nancy Tavares WPtel: [phone] (30 min) Complex 05/22/2018 Patient Education: Patient Medication Summary Completed 05/22/2018 Visit Plan: Hypertension - well con trolled - continue with current medications, continue with no added salt diet. Pt has been encouraged to exercise daily. The pt has been advised to call the office if there are any acute concerns about change in blood pressure readings at home. Joint Injection - Pt was given post - injection instructions. The pt has been advised to use anti-inflammatories post injection today, ice to the injected site, call if redness, warmth, or increased pain occurs at the site of injection. 04/26/2018 Appointment: [facility] [address] [facility] (30 min) [facility] 04/26/2018 Patient Education: Patient Medication Summary Completed 04/26/2018 Visit Plan: Hypertension - well con trolled - continue with current medications, continue with no added salt diet. Pt has been encouraged to exercise daily. The pt has been advised to call the office if there are any acute concerns about change in blood pressure readings at home. Diabetes Mellitus - controlled - per recent FSBS reports. I have recommended for the patient to have follow up labs prior to the next office visit. The patient has been instructed to continue with current medications as previously directed, continue with regular FSBS monitoring to assure continued control of diabetes. Pt to call for any acute concerns, complaints, or if the blood glucose readings are starting to become less controlled. Knee pain - stable - The pt is to use prn antiinflammatories to manage acute pain. The patient is to call the office if the pain is worsening or does not improve. 12/21/2017 Appointment: Lake[facility] Putnam [facility]el[facility] [address] [facility] (15 min) Moderate 12/21/2017 Patient Education: Patient Medication Summary Completed 12/21/2017 Patient Education: Diabetes Completed 12/21/2017 Visit Plan: Hypertension - well con trolled - continue with current medications, continue with no added salt diet. Pt has been encouraged to exercise daily. The pt has been advised to call the office if there are any acute concerns about change in blood pressure readings at home. Diabetes Mellitus - controlled - per recent FSBS reports. I have recommended for the patient to have follow up labs prior to the next office visit. The patient has been instructed to continue with current medications as previously directed, continue with regular FSBS monitoring to assure continued control of diabetes. Pt to call for any acute concerns, complaints, or if the blood glucose readings are starting to become less controlled. Joint Injection - right knee- pt tolerated procedure well - Pt was given post - injection instructions. The pt has been advised to use anti-inflammatories post injection today, ice to the injected site, call if redness, warmth, or increased pain occurs at the site of injection. 08/25/2017 Appointment: Lakeisha Putnam WPtel: [address] [facility] (15 min) Moderate 08/25/2017 Patient Education: Patient Medication Summary Completed 08/25/2017 Visit Plan: Medicare Exam - today w e discussed the patients past history, immunizations, preventative exams/evaluations - colonoscopy, fecal occult blood testing, routine labs for renal function, glucose, cholesterol, osteoporosis evaluations, cardiovascular testing and cancer screenings. We have also discussed mental health and the signs/symptoms of depression. The patient was advised of home safety evaluations and the need to make sure that as the aging process continues, we need to be aware of different ways to make the home a safer place to reside. The patient has also been counseled that exercise is necessary - and of utmost importance as we age to help decrease fall risk and to maintain independece in the home. Today we discussed the need for the patient to create paperwork for Advanced directives as well as for the patient to provide this office with a copy of her DOPA paperwork for health care surrogate. 05/30/2017 Patient Education: Patient Medication Summary Completed 05/30/2017 Appointment: Lakeisha Putnam WPtel: [facility] [facility] - Annual Wellness Visit 05/27/2017 Appointment: Nancy Tavares WPtel: [address] [phone] (30 min) Complex 04/22/2017 Visit Plan: Hypertension - continue with current medications, continue with no added salt diet. Pt has been encouraged to exercise daily. The pt has been advised to call the office if there are any acute concerns about change in blood pressure readings at home. Diabetes Mellitus - I have recommended for the patient to have follow up labs prior to the next office visit. The patient has been instructed to continue with current medications as previously directed, continue with regular FSBS monitoring to assure continued control of diabetes. Pt to call for any acute concerns, complaints, or if the blood glucose readings are starting to become less controlled. 04/20/2017 Appointment: Lakeisha Putnam WPtel: [address] [facility] [place] (30 min) Complex 04/20/2017 Patient Education: Patient Medication Summary Completed 04/20/2017 Visit Plan: Hypertension - well con trolled - continue with current medications, continue with no added salt diet. Pt has been encouraged to exercise daily. The pt has been advised to call the office if there are any acute concerns about change in blood pressure readings at home. Sleep apnea- patient wearing CPAP for 7 hours each night for at least the past 60 days and reports symptoms of sleep apnea are improved with use of CPAP-less fatigue, improved sleep, etc. Will fax note to [facility]. 01/21/2017 Appointment: Nancy Tavares WPtel: [address] [phone] [place] (30 min) Complex 01/21/2017 Appointment: Nancy Tavares WPtel: [address] [phone] (30 min) Complex 01/21/2017 Patient Education: Patient Medication Summary Completed 01/21/2017 Appointment: Mary 12/21/2016 Patient Education: Patient Medication Summary Completed 12/21/2016 Visit Plan: Hypertension - well con trolled - continue with current medications, continue with no added salt diet. Pt has been encouraged to exercise daily. The pt has been advised to call the office if there are any acute concerns about change in blood pressure readings at home. Diabetes Mellitus - controlled - per recent FSBS reports. I have recommended for the patient to have follow up labs prior to the next office visit. The patient has been instructed to continue with current medications as previously directed, continue with regular FSBS monitoring to assure continued control of diabetes. Pt to call for any acute concerns, complaints, or if the blood glucose readings are starting to become less controlled. Sleep apnea-patient uses CPAP nightly and doing well-due for a new machine-will call [facility] to see what we need to do to get him a new machine. 10/22/2016 Appointment: Nancy Tavares WPtel: [address] [phone] (30 min) Complex 10/22/2016 Patient Education: Patient Medication Summary Completed 10/22/2016 Visit Plan: Edema - pt has been adv ised to elevate legs to prevent dependent edema, compression has been recommended to help to naturally decrease peripheral edema. Diuretic use has been discussed and pt has been i nstructed in appropriate use of such medication as necessary to further attempt to reduce peripheral edema. Rash-cultured today in the office-RX sent to patient's pharmacy and instructed on use-call if rash does not resolve or if any worse. Patient verbalized understanding of plan. 10/04/2016 Appointment: Nancy Tavares WPtel: [address] [phone] (15 min) Moderate 10/04/2016 Patient Education: Patient Medication Summary Completed 10/04/2016 Visit Plan: Hypertension - well con trolled - continue with current medications, continue with no added salt diet. Pt has been encouraged to exercise daily. The pt has been advised to call the office if there are any acute concerns about change in blood pressure readings at home. Diabetes Mellitus - controlled - per recent FSBS reports. I have recommended for the patient to have follow up labs prior to the next office visit. The patient has been instructed to continue with current medications as previously directed, continue with regular FSBS monitoring to assure continued control of diabetes. Pt to call for any acute concerns, complaints, or if the blood glucose readings are starting to become less controlled. Hyperlipidemia - pt has been counseled about appropriate diet, exercise, and need for low fat food choices. I have discussed the need for the patient to take medications as prescribed. If the patient has negative side effects from the medication, they are to CALL the office and not abruptly discontinue the medication without discussion with a practitioner in the office. We will check labs in 3-6 months for follow up on the patient's chronic medical problem and to assure normal liver response to me dications. 06/18/2016 Appointment: Nancy Tavares WPtel: [phone] [phone] (15 min) Moderate 06/18/2016 Patient Education: Patient Medication Summary Completed 06/18/2016 Patient Education: Patient Medication Summary Completed 06/16/2016 Visit Plan: Medicare Exam - today w e discussed the patients past history, immunizations, preventative exams/evaluations - colonoscopy, fecal occult blood testing, routine labs for renal function, glucose, cholesterol, osteoporosis evaluations, cardiovascular testing and cancer screenings. We have also discussed mental health and the signs/symptoms of depression. The patient was advised of home safety evaluations and the need to make sure that as the aging process continues, we need to be aware of different ways to make the home a safer place to reside. The patient has also been counseled that exercise is necessary - and of utmost importance as we age to help decrease fall risk and to maintain independece in the home. Today we discussed the need for the patient to create paperwork for Advanced directives as well as for the patient to provide this office with a copy of her DOPA paperwork for health care surrogate. 05/21/2016 Visit Plan: Medicare Exam - today w e discussed the patients past history, immunizations, preventative exams/evaluations - colonoscopy, fecal occult blood testing, routine labs for renal function, glucose, cholesterol, osteoporosis evaluations, cardiovascular testing and cancer screenings. We have also discussed mental health and the signs/symptoms of depression. The patient was advised of home safety evaluations and the need to make sure that as the aging process continues, we need to be aware of different ways to make the home a safer place to reside. The patient has also been counseled that exercise is necessary - and of utmost importance as we age to help decrease fall risk and to maintain independece in the home. Today we discussed the need for the patient to create paperwork for Advanced directives as well as for the patient to provide this office with a copy of her DOPA paperwork for health care surrogate. 05/21/2016 Patient Education: Patient Medication Summary Completed 05/21/2016 Visit Plan: Bronchitis - acute case of bronchitis identified. Pt has been given antibiotics, breathing treatments as appropriate, and pt has been instructed to call if symptoms are not improved, or if symptoms acutely worsen. 04/29/2016 Appointment: Nancy Tavares WPtel: [address] [place], [place] [phone] (15 min) Moderate 04/29/2016 Patient Education: Patient Medication Summary Completed 04/29/2016 Care Plan: CHEST X-RAY 2VW FRONTAL&LATL LOINC : 70515-3 Pending 04/29/2016 Visit Plan: Sinusitis - Pt has acut e infection - pain in face, maxillary region, Pt informed to use decongestant, RX given to patient, sinus rinses also recommended. Call if symptoms do not show improvement. Allerg ies - chronic - recommended pt to use allergy medication as prescribed. Pt has been counseled as to the appropriate use of the medication. Pt to call if allergy symptoms are not controlled with the medication. If using nasal spray, instructions as follows: Nasal spray- use twice daily, one spray per nostril twice daily, after 30 minutes, rinse out nose with saline spray.. Use opposite hand per nostril to spray in the nasal steroid allergy spray. 04/21/2016 Visit Plan: Sinusitis - Pt has acut e infection - pain in face, maxillary region, Pt informed to use decongestant, RX given to patient, sinus rinses also recommended. Call if symptoms do not show improvement. Allerg ies - chronic - recommended pt to use allergy medication as prescribed. Pt has been counseled as to the appropriate use of the medication. Pt to call if allergy symptoms are not controlled with the medication. If using nasal spray, instructions as follows: Nasal spray- use twice daily, one spray per nostril twice daily, after 30 minutes, rinse out nose with saline spray.. Use opposite hand per nostril to spray in the nasal steroid allergy spray. 04/21/2016 Appointment: Lakeisha Putnam WPtel: [address] [place], [place] [phone] (15 min) Moderate 04/21/2016 Patient Education: Patient Medication Summary Completed 04/21/2016 Visit Plan: Hypertension - well con trolled - continue with current medications, continue with no added salt diet. Pt has been encouraged to exercise daily. The pt has been advised to call the office if there are any acute concerns about change in blood pressure readings at home. Diabetes Mellitus - controlled - per recent FSBS reports. I have recommended for the patient to have follow up labs prior to the next office visit. The patient has been instructed to continue with current medications as previously directed, continue with regular FSBS monitoring to assure continued control of diabetes. Pt to call for any acute concerns, complaints, or if the blood glucose readings are starting to become less controlled. Hyperlipidemia - pt has been counseled about appropriate diet, exercise, and need for low fat food choices. I have discussed the need for the patient to take medications as prescribed. If the patient has negative side effects from the medication, they are to CALL the office and not abruptly discontinue the medication without discussion with a practitioner in the office. We will check labs in 3-6 months for follow up on the patient's chronic medical problem and to assure normal liver response to me dications. Generalized OA-handicap placard provided 02/20/2016 Appointment: Nancy Tavares WPtel: [address] [phone] (30 min) Complex 02/20/2016 Patient Education: Patient Medication Summary Completed 02/20/2016 Visit Plan: Bronchitis - acute case of bronchitis identified. Pt has been given antibiotics, breathing treatments as appropriate, and pt has been instructed to call if symptoms are not improved, or if symptoms acutely worsen. Hypertension - well controlled - continue with current medications, continue with no added salt diet. Pt has been encouraged to exercise daily. The pt has been advised to call the office if there are any acute concerns about change in blood pressure readings at home. Diabetes Mellitus - controlled - per recent FSBS reports. I have recommended for the patient to have follow up labs prior to the next office visit. The patient has been instructed to continue with current medications as previously directed, continue with regular FSBS monitoring to assure continued control of diabetes. Pt to call for any acute concerns, complaints, or if the blood glucose readings are starting to become less controlled. 01/01/2016 Appointment: Charlene Hoskins [facility]Ptel[facility] (15 min) Moderate 01/01/2016 Patient Education: Patient Medication Summary Completed 01/01/2016 Visit Plan: Joint Injection - Pt wa sindy given post - injection instructions. The pt has been advised to use anti-inflammatories post injection today, ice to the injected site, call if redness, warmth, or increased pain occurs at the site of injection. 11/13/2015 Visit Plan: Joint Injection - Pt wa sindy given post - injection instructions. The pt has been advised to use anti-inflammatories post injection today, ice to the injected site, call if redness, warmth, or increased pain occurs at the site of injection. 11/13/2015 Visit Plan: Joint Injection - Pt wa sindy given post - injection instructions. The pt has been advised to use anti-inflammatories post injection today, ice to the injected site, call if redness, warmth, or increased pain occurs at the site of injection. 11/13/2015 Appointment: Nancy Tavares WPtel: [phone] [phone] (15 min) Moderate 11/13/2015 Patient Education: Patient Medication Summary Completed 11/13/2015 Appointment: Injection 11/11/2015 Patient Education: Patient Medication Summary Completed 11/11/2015 Visit Plan: Hypertension - well con trolled - continue with current medications, continue with no added salt diet. Pt has been encouraged to exercise daily. The pt has been advised to call the office if there are any acute concerns about change in blood pressure readings at home. Hyperlipidemia - pt has been counseled about appropriate diet, exercise, and need for low fat food choices. I have discussed the need for the patient to take medications as prescribed. If the patient has negative side effects from the medication, they are to CALL the office and not abruptly discontinue the medication without discussion with a practitioner in the office. We will check labs in 3-6 months for follow up on the patient's chronic medical problem and to assure normal liver response to medications. DM-too early for Hgb T1y-ascfibj to have done next week 11/07/2015 App[facility]ment: [phone] [phone] (15 min) Moderate 11/07/2015 Patient Education: Patient Medication Summary Completed 11/07/2015 Visit Plan: Diabetes Mellitus - con trolled - per recent FSBS reports. I have recommended for the patient to have follow up labs prior to the next office visit. The patient has been instructed to continue with current medications as previously directed, continue with regular FSBS monitoring to assure continued control of diabetes. Pt to call for any acute concerns, complaints, or if the blood glucose readings are starting to become less controlled. Hypertension - well controlled - continue with current medications, continue with no added salt diet. Pt has been encouraged to exercise daily. The pt has been advised to call the office if there are any acute concerns about change in blood pressure readings at home. Hyperlipidemia - pt has been counseled about appropriate diet, exercise, and need for low fat food choices. I have discussed the need for the patient to take medications as prescribed. If the patient has negative side effects from the medication, they are to CALL the office and not abruptly discontinue the medication without discussion with a practitioner in the office. We will check labs in 3-6 months for follow up on the patient's chronic medical problem and to assure normal liver response to me dications. Elevated PSA-awaiting biopsy results 08/07/2015 Appointment: Nancy Tava[facility]Ptel[facility] [phone] [phone] New Patient 08/07/2015 Patient Education: Patient Medication Summary Completed 08/07/2015 Instructions Comment . Hypertension - wel l controlled - continue with current medications, continue with no added salt diet. Pt has been encouraged to exercise daily. The pt has been advised to call the office if there are any acute concerns about change in blood pressure readings at home. Diabetes Mellitus - controlled - per recent FSBS reports. I have recommended for the patient to have follow up labs prior to the next office visit. The patient has been instructed to continue with current medications as previously directed, continue with regular FSBS monitoring to assure continued control of diabetes. Pt to call for any acute concerns, complaints, or if the blood glucose readings are starting to become less controlled. Sleep apnea-patient uses CPAP nightly and doing well-due for a new machine-will call [facility] to see what we need to do to get him a new machine. . Medicare Exam - to day we discussed the patients past history, immunizations, preventative exams/evaluations - colonoscopy, fecal occult blood testing, routine labs for renal function, glucose, cholesterol, osteoporosis evaluations, cardiovascular testing and cancer screenings. We have also discussed mental health and the signs/symptoms of depression. The patient was advised of home safety evaluations and the need to make sure that as the aging process continues, we need to be aware of different ways to make the home a safer place to reside. The patient has also been counseled that exercise is necessary - and of utmost importance as we age to help decrease fall risk and to maintain independece in the home. Today we discussed the need for the patient to create paperwork for Advanced directives as well as for the patient to provide this office with a copy of her DOPA paperwork for health care surrogate. . Joint Injection - Pt was given post - injection instructions. The pt has been advised to use anti-inflammatories post injection today, ice to the injected site, call if redness, warmth, or increased pain occurs at the site of injection. . Joint Injection - Pt was given post - injection instructions. The pt has been advised to use anti-inflammatories post injection today, ice to the injected site, call if redness, warmth, or increased pain occurs at the site of injection. . Joint Injection - Pt was given post - injection instructions. The pt has been advised to use anti-inflammatories post injection today, ice to the injected site, call if redness, warmth, or increased pain occurs at the site of injection. . Bronchitis - acute case of bronchitis identified. Pt has been given antibiotics, breathing treatments as appropriate, and pt has been instructed to call if symptoms are not improved, or if symptoms acutely worsen. Hypertension - well controlled - continue with current medications, continue with no added salt diet. Pt has been encouraged to exercise daily. The pt has been advised to call the office if there are any acute concerns about change in blood pressure readings at home. Diabetes Mellitus - controlled - per recent FSBS reports. I have recommended for the patient to have follow up labs prior to the next office visit. The patient has been instructed to continue with current medications as previously directed, continue with regular FSBS monitoring to assure continued control of diabetes. Pt to call for any acute concerns, complaints, or if the blood glucose readings are starting to become less controlled. . Hypertension - wel l controlled - continue with current medications, continue with no added salt diet. Pt has been encouraged to exercise daily. The pt has been advised to call the office if there are any acute concerns about change in blood pressure readings at home. Diabetes Mellitus - controlled - per recent FSBS reports. I have recommended for the patient to have follow up labs prior to the next office visit. The patient has been instructed to continue with current medications as previously directed, continue with regular FSBS monitoring to assure continued control of diabetes. Pt to call for any acute concerns, complaints, or if the blood glucose readings are starting to become less controlled. Hyperlipidemia - pt has been counseled about appropriate diet, exercise, and need for low fat food choices. I have discussed the need for the patient to take medications as prescribed. If the patient has negative side effects from the medication, they are to CALL the office and not abruptly discontinue the medication without discussion with a practitioner in the office. We will check labs in 3-6 months for follow up on the patient's chronic medical problem and to assure normal liver response to medications. . Hypertension - wel l controlled - continue with current medications, continue with no added salt diet. Pt has been encouraged to exercise daily. The pt has been advised to call the office if there are any acute concerns about change in blood pressure readings at home. Joint Injection - Pt was given post - injection instructions. The pt has been advised to use anti-inflammatories post injection today, ice to the injected site, call if redness, warmth, or increased pain occurs at the site of injection. Diabetes Mellitus - I have recommended for the patient to have follow up labs prior to the next office visit. The patient has been instructed to continue with current medications as previously directed, continue with regular FSBS monitoring to assure continued control of diabetes. Pt to call for any acute concerns, complaints, or if the blood glucose readings are starting to become less controlled. I have recommended for the patient to follow more strictly to the diabetic diet as discussed in clinic to allow for greater blood glucose control. . Medicare Exam - to day we discussed the patients past history, immunizations, preventative exams/evaluations - colonoscopy, fecal occult blood testing, routine labs for renal function, glucose, cholesterol, osteoporosis evaluations, cardiovascular testing and cancer screenings. We have also discussed mental health and the signs/symptoms of depression. The patient was advised of home safety evaluations and the need to make sure that as the aging process continues, we need to be aware of different ways to make the home a safer place to reside. The patient has also been counseled that exercise is necessary - and of utmost importance as we age to help decrease fall risk and to maintain independece in the home. Today we discussed the need for the patient to create paperwork for Advanced directives as well as for the patient to provide this office with a copy of her DOPA paperwork for health care surrogate. . Rash - The patient was instructed in appropriate wound care. The patient was instructed to use the antibiotic ointment as per RX. The patient is to call for any change in symptoms, increase in size of the lesion, increase in pain, worsening redness, warmth, discharge. Allergic Reaction/Hives - discussed diagnosis with patient, need to avoid allergen, and when/if the patient should go to the emergency room. Pt was instructed to take benadryl 25mg q 6 hours x 48 hours, and pepcid 20mg bid x 48 hours, pt also given RX for prednisone taper. . Hypertension - wel l controlled - continue with current medications, continue with no added salt diet. Pt has been encouraged to exercise daily. The pt has been advised to call the office if there are any acute concerns about change in blood pressure readings at home. Sleep apnea-patient wearing CPAP for 7 hours each night for at least the past 60 days and reports symptoms of sleep apnea are improved with use of CPAP-less fatigue, improved sleep, etc. Will fax note to [facility]. . Hypertension - con tinue with current medications, continue with no added salt diet. Pt has been encouraged to exercise daily. The pt has been advised to call the office if there are any acute concerns about change in blood pressure readings at home. Diabetes Mellitus - I have recommended for the patient to have follow up labs prior to the next office visit. The patient has been instructed to continue with current medications as previously directed, continue with regular FSBS monitoring to assure continued control of diabetes. Pt to call for any acute concerns, complaints, or if the blood glucose readings are starting to become less controlled. . Hypertension - wel l controlled - continue with current medications, continue with no added salt diet. Pt has been encouraged to exercise daily. The pt has been advised to call the office if there are any acute concerns about change in blood pressure readings at home. Diabetes Mellitus - controlled - per recent FSBS reports. I have recommended for the patient to have follow up labs prior to the next office visit. The patient has been instructed to continue with current medications as previously directed, continue with regular FSBS monitoring to assure continued control of diabetes. Pt to call for any acute concerns, complaints, or if the blood glucose readings are starting to become less controlled. Knee pain - stable - The pt is to use prn antiinflammatories to manage acute pain. The patient is to call the office if the pain is worsening or does not improve. . Hypertension - wel l controlled - continue with current medications, continue with no added salt diet. Pt has been encouraged to exercise daily. The pt has been advised to call the office if there are any acute concerns about change in blood pressure readings at home. Joint Injection - Pt was given post - injection instructions. The pt has been advised to use anti-inflammatories post injection today, ice to the injected site, call if redness, warmth, or increased pain occurs at the site of injection. COMPRESSION STOCKING S KETOCONAZOLE SHAMPOO THREE TIMES WEEKLY CONTINUE STEROID CREAM ORDERED BY INSPECTOR ASSEMBLY CULTURE RASH LEFT AXILLA . Edema - pt has been advised to elevate legs to prevent dependent edema, compression has been recommended to help to naturally decrease peripheral edema. Diuretic use has been discussed and pt has been instructed in appropriate use of such medication as necessary to further attempt to reduce peripheral edema. Rash-cultured today in the office-RX sent to patient's pharmacy and instructed on use-call if rash does not resolve or if any worse. Patient verbalized understanding of plan. . Hypertension - wel l controlled - continue with current medications, continue with no added salt diet. Pt has been encouraged to exercise daily. The pt has been advised to call the office if there are any acute concerns about change in blood pressure readings at home. Diabetes Mellitus - controlled - per recent FSBS reports. I have recommended for the patient to have follow up labs prior to the next office visit. The patient has been instructed to continue with current medications as previously directed, continue with regular FSBS monitoring to assure continued control of diabetes. Pt to call for any acute concerns, complaints, or if the blood glucose readings are starting to become less controlled. Joint Injection - right knee- pt tolerated procedure well - Pt was given post - injection instructions. The pt has been advised to use anti-inflammatories post injection today, ice to the injected site, call if redness, warmth, or increased pain occurs at the site of injection. . Medicare Exam - to day we discussed the patients past history, immunizations, preventative exams/evaluations - colonoscopy, fecal occult blood testing, routine labs for renal function, glucose, cholesterol, osteoporosis evaluations, cardiovascular testing and cancer screenings. We have also discussed mental health and the signs/symptoms of depression. The patient was advised of home safety evaluations and the need to make sure that as the aging process continues, we need to be aware of different ways to make the home a safer place to reside. The patient has also been counseled that exercise is necessary - and of utmost importance as we age to help decrease fall risk and to maintain independece in the home. Today we discussed the need for the patient to create paperwork for Advanced directives as well as for the patient to provide this office with a copy of her DOPA paperwork for health care surrogate. CXR STOP SYMBICORT TWO PUFFS BID . Bronchitis - acute case of bronchitis identified. Pt has been given antibiotics, breathing treatments as appropriate, and pt has been instructed to call if symptoms are not improved, or if symptoms acutely worsen. . Hypertension - wel l controlled - continue with current medications, continue with no added salt diet. Pt has been encouraged to exercise daily. The pt has been advised to call the office if there are any acute concerns about change in blood pressure readings at home. Hyperlipidemia - pt has been counseled about appropriate diet, exercise, and need for low fat food choices. I have discussed the need for the patient to take medications as prescribed. If the patient has negative side effects from the medication, they are to CALL the office and not abruptly discontinue the medication without discussion with a practitioner in the office. We will check labs in 3-6 months for follow up on the patient's chronic medical problem and to assure normal liver response to medications. DM-too early for Hgb [id number]-[id number] to have done next week . Hypertension - wel l controlled - continue with current medications, continue with no added salt diet. Pt has been encouraged to exercise daily. The pt has been advised to call the office if there are any acute concerns about change in blood pressure readings at home. Diabetes Mellitus - controlled - per recent FSBS reports. I have recommended for the patient to have follow up labs prior to the next office visit. The patient has been instructed to continue with current medications as previously directed, continue with regular FSBS monitoring to assure continued control of diabetes. Pt to call for any acute concerns, complaints, or if the blood glucose readings are starting to become less controlled. Hyperlipidemia - pt has been counseled about appropriate diet, exercise, and need for low fat food choices. I have discussed the need for the patient to take medications as prescribed. If the patient has negative side effects from the medication, they are to CALL the office and not abruptly discontinue the medication without discussion with a practitioner in the office. We will check labs in 3-6 months for follow up on the patient's chronic medical problem and to assure normal liver response to medications. Generalized OA-handicap placard provided . Sinusitis - Pt has acute infection - pain in face, maxillary region, Pt informed to use decongestant, RX given to patient, sinus rinses also recommended. Call if symptoms do not show improvement. Allergies - chronic - recommended pt to use allergy medication as prescribed. Pt has been counseled as to the appropriate use of the medication. Pt to call if allergy symptoms are not controlled with the medication. If using nasal spray, instructions as follows: Nasal spray- use twice daily, one spray per nostril twice daily, after 30 minutes, rinse out nose with saline spray.. Use opposite hand per nostril to spray in the nasal steroid allergy spray. . Sinusitis - Pt has acute infection - pain in face, maxillary region, Pt informed to use decongestant, RX given to patient, sinus rinses also recommended. Call if symptoms do not show improvement. Allergies - chronic - recommended pt to use allergy medication as prescribed. Pt has been counseled as to the appropriate use of the medication. Pt to call if allergy symptoms are not controlled with the medication. If using nasal spray, instructions as follows: Nasal spray- use twice daily, one spray per nostril twice daily, after 30 minutes, rinse out nose with saline spray.. Use opposite hand per nostril to spray in the nasal steroid allergy spray. RETURN FOR FASTING L ABS . Diabetes Mellitus - controlled - per r ecent FSBS reports. I have recommended for the patient to have follow up labs prior to the next office visit. The patient has been instructed to continue with current medications as previously directed, continue with regular FSBS monitoring to assure continued control of diabetes. Pt to call for any acute concerns, complaints, or if the blood glucose readings are starting to become less controlled. Hypertension - well controlled - continue with current medications, continue with no added salt diet. Pt has been encouraged to exercise daily. The pt has been advised to call the office if there are any acute concerns about change in blood pressure readings at home. Hyperlipidemia - pt has been counseled about appropriate diet, exercise, and need for low fat food choices. I have discussed the need for the patient to take medications as prescribed. If the patient has negative side effects from the medication, they are to CALL the office and not abruptly discontinue the medication without discussion with a practitioner in the office. We will check labs in 3-6 months for follow up on the patient's chronic medical problem and to assure normal liver response to medications. Elevated PSA-awaiting biopsy results XRAY LEFT SHOULDER A ND LEFT HIP . Left shoulder pain -started six weeks ago after a fall -will get xrays today and proceed as indicated -okay to take tylenol as needed for pain Left hip pain -also started after fall -xray hip today as well
--- OUTSIDE RECORDS SUMMARY | 2019-04-11 03:27 | XMS REPORT | CCD ---
Author Author Cesar Tavares Organization Charlene Hoskins MD, [facility] Address [address] [place] [address] Phone Care Team Providers Care Commercial Credit Analyst Name Role Phone PP Unavailable CCM Unavailable Summary Purpose Interface Exchange Insurance Providers Payer name Policy type / Coverage type Covered alliance party ID Effective Begin Date Effective End Date WPS Medicare Part B Medicare Part B [id number] Unknown [facility] Part B [id number] Un known Family history Brother Diagnosis Age [...] Retir ed 08/07/[address]: 7665754 Quit over 10 years ago 1970 08/07/[address]: 182312303 Never drinks alcohol 08/07/2015 Allergies, Adverse Reactions, [...] Instructions montelukast 10 mg ta blet RxNorm: 342581 TAKE 1 TABLET BY MOUT H ONCE DAILY 09/08/2018 No Stop Date Active mupirocin 2 % topica l ointment RxNorm: 642859 1 Application TOP BID to left shoulder spots 09/06/2018 No Stop Date Active prednisone 20 mg tablet RxNorm: 331678 Tablet(s) PO 09/06/2018 No Stop Date Active 60,4 0,20,10 nystatin 100,000 uni t/gram topical cream RxNorm: 615659 1 Application TOP QID to groin area 09/06/2018 No Stop Date Active Kenalog 40 mg/mL maggie pension for injection RxNorm: 7732880 1 Milliliter(s) Inj 08/28/2018 08/28/2018 In active losartan 50 mg tablet RxNorm: 669293 1 Tablet(s) PO daily TAKE 1 TABLET BY MO UTH ONCE DAILY 07/25/2018 01/20/2019 Active meloxicam 7.5 mg tablet RxNorm: 881411 TAKE 1 TABLET BY MOUTH ONCE DAILY 06/01/2018 No Stop Date Active Advair Diskus 250 mc g-50 mcg/dose powder for inhalation RxNorm: 8865680 INHALE 1 DOSE BY MOUTH TWICE DAILY 05/22/2018 No Stop Date Active fluticasone propiona te 50 mcg/actuation nasal spray,suspension RxNorm: 1357564 USE 2 SPRAY(S) IN EACH NOSTRIL ONCE DAILY 05/17/2018 No Stop Date Active simvastatin 20 mg ta blet RxNorm: 687339 TAKE 1 TABLET BY MOUT H ONCE DAILY 05/16/2018 No Stop Date Active Kenalog 40 mg/mL maggie pension for injection RxNorm: 5082706 1 Milliliter(s) Inj 04/26/2018 04/26/2018 In active Kenalog 40 mg/mL maggie pension for injection RxNorm: 8706800 1 Milliliter(s) Inj 04/26/2018 04/26/2018 In active losartan 50 mg tablet RxNorm: 300364 TAKE 1 TABLET BY MOUTH ONCE DAILY 04/24/2018 07/24/2018 In active fluticasone propiona te 50 mcg/actuation nasal spray,suspension RxNorm: 5466538 USE 2 SPRAY(S) IN EACH NOSTRIL ONCE DAILY 03/27/2018 05/16/2018 Inactive Advair Diskus 250 mc g-50 mcg/dose powder for inhalation RxNorm: 2852389 INHALE 1 DOSE BY MOUTH TWICE DAILY 03/21/2018 05/21/2018 Inactive montelukast 10 mg ta blet RxNorm: 136993 TAKE ONE TABLET BY MO UTH ONCE DAILY 03/15/2018 09/07/2018 In active Advair Diskus 250 mc g-50 mcg/dose powder for inhalation RxNorm: 9103647 INHALE 1 DOSE BY MOUTH TWICE DAILY 02/20/2018 03/20/2018 Inactive fluticasone 50 mcg/a ctuation nasal spray,suspension RxNorm: 4306452 USE 2 SPRAY(S) IN EACH NOSTRIL ONCE DAILY 02/08/2018 03/26/2018 Inactive metformin 500 mg tablet RxNorm: 494387 TAKE 1 TABLET BY MOUTH ONCE DAILY 01/16/2018 No Stop Date Active Advair Diskus 250 mc g-50 mcg/dose powder for inhalation RxNorm: 3363186 INHALE 1 DOSE BY MOUTH TWICE DAILY 12/19/2017 02/19/2018 Inactive meloxicam 7.5 mg tablet RxNorm: 037749 TAKE 1 TABLET BY MOUTH ONCE DAILY 12/01/2017 05/31/2018 In active simvastatin 20 mg ta blet RxNorm: 236269 TAKE 1 TABLET BY MOUT H ONCE DAILY 11/14/2017 05/15/2018 In active losartan 50 mg tablet RxNorm: 799320 TAKE ONE TABLET BY MOUTH ONCE DAILY 10/27/2017 04/23/2018 In active Advair Diskus 250 mc g-50 mcg/dose powder for inhalation RxNorm: 9054352 INHALE 1 DOSE BY MOUTH TWICE DAILY 10/19/2017 12/18/2017 Inactive fluticasone 50 mcg/a ctuation nasal spray,suspension RxNorm: 9583475 USE TWO SPRAY(S) IN EACH NOSTRIL ONCE DAILY 10/19/2017 02/07/2018 Inactive Kenalog 40 mg/mL maggie pension for injection RxNorm: 7941227 1 Milliliter(s) Inj 08/25/2017 08/25/2017 In active meloxicam 7.5 mg tablet RxNorm: 919782 TAKE ONE TABLET BY MOUTH ONCE DAILY 06/06/2017 11/30/2017 In active simvastatin 20 mg ta blet RxNorm: 375213 TAKE ONE TABLET BY MO UTH ONCE DAILY 05/17/2017 11/13/2017 In active metformin 500 mg tablet RxNorm: 059308 TAKE ONE TABLET BY MOUTH ONCE DAILY 05/05/2017 01/15/2018 In active Advair Diskus 250 mc g-50 mcg/dose powder for inhalation RxNorm: 6042904 INHALE ONE DOSE BY MOUTH TWICE DAILY 04/19/2017 10/18/2017 Inactive Tamiflu 75 mg capsule RxNorm: 256213 1 Capsule(s) PO daily 03/25/2017 03/24/2017 Inactive Tamiflu 75 mg capsule RxNorm: 995115 1 Capsule(s) PO daily 03/25/2017 03/31/2017 Inactive montelukast 10 mg ta blet RxNorm: 889948 TAKE ONE TABLET BY MO UTH ONCE DAILY 03/21/2017 03/14/2018 In active losartan 50 mg tablet RxNorm: 422957 TAKE ONE TABLET BY MOUTH ONCE DAILY 01/27/2017 10/26/2017 In active fluticasone 50 mcg/a ctuation nasal spray,suspension RxNorm: 5986757 USE TWO SPRAY(S) IN EACH NOSTRIL ONCE DAILY 01/17/2017 10/18/2017 Inactive meloxicam 7.5 mg tablet RxNorm: 423132 TAKE ONE TABLET BY MOUTH ONCE DAILY 12/06/2016 06/03/2017 In active metformin 500 mg tablet RxNorm: 462189 Tablet(s) TAKE ONE TABLET BY MOUTH TWICE DAILY 11/30/2016 11/24/2017 Inactive simvastatin 20 mg ta blet RxNorm: 480131 TAKE ONE TABLET BY MO UTH ONCE DAILY 11/15/2016 05/13/2017 In active Advair Diskus 250 mc g-50 mcg/dose powder for inhalation RxNorm: 4634653 INHALE ONE PUFF BY MOUTH TWICE DAILY 10/22/2016 04/18/2017 Inactive ketoconazole 2 % [facility] RxNorm: 579276 1 Application TOP TIW 10/04/2016 10/17/2016 Inactive fluticasone 50 mcg/a ctuation nasal spray,suspension RxNorm: 2991427 USE TWO SPRAY(S) IN EACH NOSTRIL ONCE DAILY 09/21/2016 11/19/2016 Inactive montelukast 10 mg ta blet RxNorm: 926771 TAKE ONE TABLET BY MO UTH ONCE DAILY 09/21/2016 03/19/2017 In active losartan 50 mg tablet RxNorm: 292201 TAKE ONE TABLET BY MOUTH ONCE DAILY 08/02/2016 01/26/2017 In active metformin 500 mg tablet RxNorm: 996350 TAKE ONE TABLET BY MOUTH TWICE DAILY 07/22/2016 10/19/2016 In active furosemide 20 mg tablet RxNorm: 777374 1 Tablet(s) PO daily as needed for swell ing 07/21/2016 04/18/2018 Inactive meloxicam 7.5 mg tablet RxNorm: 425112 TAKE ONE TABLET BY MOUTH ONCE DAILY 06/08/2016 12/04/2016 In active cefdinir 300 mg capsule RxNorm: 832831 1 Capsule(s) PO BID 04/29/2016 05/05/2016 Inactive prednisone 20 mg tablet RxNorm: 664237 1 Tablet(s) PO BID 04/29/2016 05/03/2016 Inactive Zithromax Z-Sherif 250 mg tablet RxNorm: 515709 1 Tablet(s) PO UD 04/21/2016 04/28/2016 Inactive Kenalog 40 mg/mL maggie pension for injection RxNorm: 8050030 1 Milliliter(s) Inj 04/21/2016 04/21/2016 In active montelukast 10 mg ta blet RxNorm: 126726 TAKE ONE TABLET BY MO UT ONCE DAILY 03/22/2016 09/17/2016 In active fluticasone 50 mcg/a ctuation nasal spray,suspension RxNorm: 0459711 2 [place] NASAL daily each nare 03/15/2016 07/12/2016 Inactive qs metformin 500 mg tablet RxNorm: 653222 1 Tablet(s) PO daily 01/16/2016 2016 Inactive Patient does not need a refill- just upd ate dosing Advair Diskus 250 mc g-50 mcg/dose powder for inhalation RxNorm: 6266669 1 INH BID 01/01/2016 04/29/2016 In active Advair Diskus 250 mc g-50 mcg/dose powder for inhalation RxNorm: 2146883 1 INH daily 01/01/2016 12/31/2015 Inactive metformin 500 mg tablet RxNorm: 670765 1 Tablet(s) PO daily 01/01/2016 01/15/2016 Inactive simvastatin 40 mg ta blet RxNorm: 891538 1 Tablet(s) PO daily 01/01/2016 04/17/2018 Inactive azithromycin 250 mg tablet RxNorm: 731658 1 Tablet(s) PO take t wo pills on day #1, then one pill daily x 4 more days 01/01/2016 02/17/2016 Inactive meloxicam 7.5 mg tablet RxNorm: 053351 1 Tablet(s) PO daily 12/11/2015 06/07/2016 Inactive simvastatin 20 mg ta blet RxNorm: 370924 1 Tablet(s) PO daily 11/21/2015 12/31/2015 Inactive metformin 500 mg tablet RxNorm: 791197 1 Tablet(s) PO BID 11/21/2015 12/31/2015 Inactive Advair Diskus 250 mc g-50 mcg/dose powder for inhalation RxNorm: 4288626 1 INH BID 11/21/2015 12/31/2015 In active montelukast 10 mg ta blet RxNorm: 971448 1 Tablet(s) PO daily 09/25/2015 03/21/2016 Inactive losartan 50 mg tablet RxNorm: 000650 1 Tablet(s) PO daily 09/04/2015 08/01/2016 Inactive Restasis 0.05 % eye drops in a dropperette RxNorm: 906825 1 gtts OPH BID 08/07/2015 No Stop Date Active meloxicam 7.5 mg tablet RxNorm: 369944 1 Tablet(s) PO daily 08/07/2015 09/05/2015 Inactive Kay oral RxNorm: 293877 oral No Start Date Active finasteride 5 mg tablet RxNorm: 685144 1 Tablet(s) PO daily No Start Date Active Zyrtec 10 mg tablet RxNorm: 2787997 1 Tablet(s) PO daily No Start Date Active Co Q-10 200 mg capsule RxNorm: 715964 1 Capsule(s) PO daily No Start Date Active Calcium 500 + D (D3) oral RxNorm: 791615 oral No S tart Date Active simethicone 125 mg c apsule RxNorm: 484498 Capsule(s) PO as needed No Start Date Active Vitamin D3 1,000 uni t tablet RxNorm: 841695 1 Tablet(s) PO daily No Start Date Active omega-3 fatty acids 1,000 mg capsule RxNorm: 4 Capsule(s) PO daily No Start Date Active triamcinolone aceton chasity 0.1 % topical cream RxNorm: 3139350 1 TOP UD No Start Date Active fluticasone 50 mcg/a ctuation nasal spray,suspension RxNorm: 1840311 2 [place] NASAL daily each nare No Start Date 03/14/2016 Inactive losartan 50 mg tablet RxNorm: 469473 1 Tablet(s) PO daily No Start Date 09/03/2015 Inactive metformin 500 mg tablet RxNorm: 144503 1 Tablet(s) PO daily No Start Date 11/20/2015 Inactive simvastatin 40 mg ta blet RxNorm: 965662 1 Tablet(s) PO daily No Start Date 11/20/2015 Inactive furosemide 20 mg tablet RxNorm: 963801 1 Tablet(s) PO daily as needed No Start Date 07/20/2016 Inactive Advair Diskus 250 mc g-50 mcg/dose powder for inhalation RxNorm: 7304929 1 INH daily No Start Date 11/20/2015 Inactive Multiple Vitamin oral RxNorm: 42520 oral No Start Date 12/31/2015 Inactive montelukast 10 mg ta blet RxNorm: 749368 1 Tablet(s) PO daily No Start Date 09/24/2015 Inactive Medication Administered Medication Codes Instruc tions Start Date Status Kenalog 40 mg/mL suspension for injection RxNorm: 8007756 1Milliliter 08/28/2018 N o longer Active Kenalog 40 mg/mL suspension for injection RxNorm: 6348221 1Milliliter 04/26/2018 N o longer Active Kenalog 40 mg/mL suspension for injection RxNorm: 7828945 1Milliliter 04/26/2018 N o longer Active Kenalog 40 mg/mL suspension for injection RxNorm: 5538726 1Milliliter 08/25/2017 N o longer Active Kenalog 40 mg/mL suspension for injection RxNorm: 5133246 1Milliliter 04/21/2016 N o longer Active Immunizations [...] 32.4 pg 08/28/2018 Cbc With Differential Ord2 Routt% 10.1 % 08/28/2018 Cbc With Differential Ord2 [...] 2.05 K/ul 08/28/2018 Cbc With Differential Ord2 Routt ABS# 0.9 K/ul 08/28/2018 Cbc With Differential Ord2 Eos ABS# 0.5 K/ul 08/28/2018 Cbc With Differential Ord2 Baso ABS# 0.0 K/ul 08/28/2018 %Hba1C Xuq465 % HbA1c 16511-4 5.8 % 08/28/2018 %Hba1C Uwm056 Gluc Ave 120 mg/dL 08/28/2018 Comp Metabolic Kgb777 NA 141 mEq/L 08/28/2018 Comp Metabolic Kbd074 K 4.3 mEq/L 08/28/2018 Comp Metabolic Sfh574 CL 105 mEq/L 08/28/2018 Comp Metabolic Gxu166 CO2 28.0 mEq/L 08/28/2018 Comp Metabolic Opg336 AN ION GAP 12 08/28/2018 Comp Metabolic Jmw555 GL UCOSE 101 mg/dL 08/28/2018 Comp Metabolic Swu496 Cr eat 0.9 mg/dL 08/28/2018 Comp Metabolic Oiw739 eG FR 89 ml/min/1.73m2 08/28 Comp Metabolic Htw547 BUN 26 mg/dL 08/28/2018 Comp Metabolic Fqz832 B/ C Ratio 29.9 Ratio 08/28/2018 Comp Metabolic Ner958 CA LCIUM 9.4 mg/dL 08/28/2018 Comp Metabolic Jer920 AL K PHOS 60 U/L 08/28/2018 Comp Metabolic Vox928 T(SGOT) 17 U/L 08/28/2018 Comp Metabolic Ysj725 AL T(SGPT) 27 U/L 08/28/2018 Comp Metabolic Jnp069 BI LI T 0.6 mg/dL 08/28/2018 Comp Metabolic Oyk158 AL BUMIN 4.2 g/dL 08/28/2018 Comp Metabolic Ndv061 TP RO 6.6 g/dL 08/28/2018 Comp Metabolic Dlb242 GL OB 2.4 g/dL 08/28/2018 Comp Metabolic Jfd699 A/ G Ratio 1.7 Ratio 08/28/2018 Comp Metabolic Ypy284 Os mo 286 mOsmo 08/28/2018 %Hba1C Rke713 % HbA1c 95358-3 6.0 % 12/21/2017 %Hba1C Eom957 Gluc Ave 126 mg/dL 12/21/2017 %Hba1C Cpf373 % HbA1c 06894-6 6.2 % 04/20/2017 %Hba1C Ysj594 Gluc Ave 131 mg/dL 04/20/2017 Cbc With [...] 31.8 pg 04/20/2017 Cbc With Differential Ord2 Routt% 9.3 % 04/20/2017 Cbc With Differential Ord2 [...] 1.82 K/ul 04/20/2017 Cbc With Differential Ord2 Routt ABS# 0.6 K/ul 04/20/2017 Cbc With Differential Ord2 Eos ABS# 0.2 K/ul 04/20/2017 Cbc With Differential Ord2 Baso ABS# 0.0 K/ul 04/20/2017 Comp Metabolic Bom654 NA 141 mEq/L 04/20/2017 Comp Metabolic Wef739 K 4.5 mEq/L 04/20/2017 Comp Metabolic Ezr803 CL 106 mEq/L 04/20/2017 Comp Metabolic Beh098 CO2 27.0 mEq/L 04/20/2017 Comp Metabolic Don431 AN ION GAP 13 04/20/2017 Comp Metabolic Dqa067 GL UCOSE 109 mg/dL 04/20/2017 Comp Metabolic Lot496 Cr eat 1.0 mg/dL 04/20/2017 Comp Metabolic Vad022 eG FR 81 ml/min/1.73m2 04/20 Comp Metabolic Faf318 BUN 23 mg/dL 04/20/2017 Comp Metabolic Gol655 B/ C Ratio 24.2 Ratio 04/20/2017 Comp Metabolic Vmv954 CA LCIUM 9.3 mg/dL 04/20/2017 Comp Metabolic Iiv523 AL K PHOS 82 U/L 04/20/2017 Comp Metabolic Xms950 T(SGOT) 22 U/L 04/20/2017 Comp Metabolic Mve841 AL T(SGPT) 24 U/L 04/20/2017 Comp Metabolic Ori003 BI LI T 0.4 mg/dL 04/20/2017 Comp Metabolic Rqh118 AL BUMIN 4.3 g/dL 04/20/2017 Comp Metabolic Hwi021 TP RO 6.8 g/dL 04/20/2017 Comp Metabolic Jar871 GL OB 2.5 g/dL 04/20/2017 Comp Metabolic Smi146 A/ G Ratio 1.7 Ratio 04/20/2017 Comp Metabolic Xlm723 Os mo 286 mOsmo 04/20/2017 %Hba1C Rkw559 % HbA1c 41758-6 5.8 % 10/22/2016 %Hba1C Zsp026 Gluc Ave 120 mg/dL 10/22/2016 Cbc With [...] 32.5 pg 10/22/2016 Cbc With Differential Ord2 Routt% 10.3 % 10/22/2016 Cbc With Differential Ord2 [...] 1.85 K/ul 10/22/2016 Cbc With Differential Ord2 Routt ABS# 0.8 K/ul 10/22/2016 Cbc With Differential Ord2 Eos ABS# 0.3 K/ul 10/22/2016 Cbc With Differential Ord2 Baso ABS# 0.0 K/ul 10/22/2016 Comp Metabolic Wue832 NA 141 mEq/L 10/22/2016 Comp Metabolic Mmx603 K 4.4 mEq/L 10/22/2016 Comp Metabolic Aan348 CL 105 mEq/L 10/22/2016 Comp Metabolic Ddo800 CO2 27.0 mEq/L 10/22/2016 Comp Metabolic Pen167 AN ION GAP 13 10/22/2016 Comp Metabolic Lzh226 GL UCOSE 103 mg/dL 10/22/2016 Comp Metabolic Apt050 Cr eat 1.0 mg/dL 10/22/2016 Comp Metabolic Zyi070 eG FR 76 ml/min/1.73m2 10/22 Comp Metabolic Htq898 BUN 27 mg/dL 10/22/2016 Comp Metabolic Ckf189 B/ C Ratio 27.0 Ratio 10/22/2016 Comp Metabolic Dle592 CA LCIUM 9.3 mg/dL 10/22/2016 Comp Metabolic Cld213 AL K PHOS 72 U/L 10/22/2016 Comp Metabolic Dpp966 T(SGOT) 23 U/L 10/22/2016 Comp Metabolic For207 AL T(SGPT) 26 U/L 10/22/2016 Comp Metabolic Tns206 BI LI T 0.4 mg/dL 10/22/2016 Comp Metabolic Cbl405 AL BUMIN 4.2 g/dL 10/22/2016 Comp Metabolic Loy156 TP RO 6.7 g/dL 10/22/2016 Comp Metabolic Mdf029 GL OB 2.5 g/dL 10/22/2016 Comp Metabolic Pps139 A/ G Ratio 1.6 Ratio 10/22/2016 Comp Metabolic Wac923 Os mo 287 mOsmo 10/22/2016 Comp Metabolic Nho671 NA 143 mEq/L 06/17/2016 Comp Metabolic Bol643 K 4.1 mEq/L 06/17/2016 Comp Metabolic Wyo354 CL 108 mEq/L 06/17/2016 Comp Metabolic Nyb205 CO2 28.0 mEq/L 06/17/2016 Comp Metabolic Lax053 AN ION GAP 11 06/17/2016 Comp Metabolic Luh270 GL UCOSE 106 mg/dL 06/17/2016 Comp Metabolic Vgi083 Cr eat 0.9 mg/dL 06/17/2016 Comp Metabolic Syi319 eG FR 92 ml/min/1.73m2 06/17 Comp Metabolic Eay034 BUN 22 mg/dL 06/17/2016 Comp Metabolic Eww144 B/ C Ratio 25.9 Ratio 06/17/2016 Comp Metabolic Xjj263 CA LCIUM 8.8 mg/dL 06/17/2016 Comp Metabolic Dki730 AL K PHOS 55 U/L 06/17/2016 Comp Metabolic Byt596 T(SGOT) 21 U/L 06/17/2016 Comp Metabolic Dvs256 AL T(SGPT) 24 U/L 06/17/2016 Comp Metabolic Zpm791 BI LI T 0.6 mg/dL 06/17/2016 Comp Metabolic Bey903 AL BUMIN 4.0 g/dL 06/17/2016 Comp Metabolic Sri783 TP RO 6.2 g/dL 06/17/2016 Comp Metabolic Xig176 GL OB 2.2 g/dL 06/17/2016 Comp Metabolic Ktf888 A/ G Ratio 1.8 Ratio 06/17/2016 Comp Metabolic Miq598 Os mo 289 mOsmo 06/17/2016 Lipid Ord30 CHOL 163 mg/dL 06/17/2016 Lipid Ord30 HDL 54.0 mg/dl 06/17/2016 Lipid Ord30 TRIG 133 mg/dL 06/17/2016 Lipid Ord30 LDL 82 mg/dL 06/17/2016 Lipid Ord30 C/HDL 3.0 Ratio 06/17/2016 %Hba1C Lcm411 % HbA1c 06918-8 6.0 % 06/17/2016 %Hba1C Qls026 Gluc Ave 126 mg/dL 06/17/2016 Total Psa [...] 32.7 pg 06/17/2016 Cbc With Differential Ord2 Routt% 10.7 % 06/17/2016 Cbc With Differential Ord2 [...] 1.71 K/ul 06/17/2016 Cbc With Differential Ord2 Routt ABS# 0.6 K/ul 06/17/2016 Cbc With Differential Ord2 Eos ABS# 0.2 K/ul 06/17/2016 Cbc With Differential Ord2 Baso ABS# 0.0 K/ul 06/17/2016 Tsh Ord6 hTSH II 2.91 uIU/mL 06/17/2016 Tsh Ord6 hTSH II 2.45 uIU/mL 02/19/2016 %Hba1C Xxr231 % HbA1c 36288-0 5.8 % 02/19/2016 %Hba1C Cql276 Gluc Ave 120 mg/dL 02/19/2016 Comp Metabolic Ooq827 NA 141 mEq/L 02/19/2016 Comp Metabolic Uvc889 K 4.2 mEq/L 02/19/2016 Comp Metabolic Dwa475 CL 107 mEq/L 02/19/2016 Comp Metabolic Tjh967 CO2 29.0 mEq/L 02/19/2016 Comp Metabolic Tej965 AN ION GAP 9 02/19/2016 Comp Metabolic Fty340 GL UCOSE 106 mg/dL 02/19/2016 Comp Metabolic Qwi389 Cr eat 0.9 mg/dL 02/19/2016 Comp Metabolic Gto349 eG FR 90 ml/min/1.73m2 02/18 Comp Metabolic Iel085 BUN 24 mg/dL 02/19/2016 Comp Metabolic Gyn368 B/ C Ratio 27.6 Ratio 02/19/2016 Comp Metabolic Dog012 CA LCIUM 9.1 mg/dL 02/19/2016 Comp Metabolic Urb446 AL K PHOS 67 U/L 02/19/2016 Comp Metabolic Blm468 T(SGOT) 25 U/L 02/19/2016 Comp Metabolic Piz874 AL T(SGPT) 31 U/L 02/19/2016 Comp Metabolic Rai055 BI LI T 0.6 mg/dL 02/19/2016 Comp Metabolic Kdi752 AL BUMIN 4.1 g/dL 02/19/2016 Comp Metabolic Iva455 TP RO 6.5 g/dL 02/19/2016 Comp Metabolic Gpp304 GL OB 2.4 g/dL 02/19/2016 Comp Metabolic Xgg224 A/ G Ratio 1.7 Ratio 02/19/2016 Comp Metabolic Zku739 Os mo 286 mOsmo 02/19/2016 Cbc With [...] 31.7 pg 02/19/2016 Cbc With Differential Ord2 Routt% 10.5 % 02/19/2016 Cbc With Differential Ord2 [...] 1.59 K/ul 02/19/2016 Cbc With Differential Ord2 Routt ABS# 0.6 K/ul 02/19/2016 Cbc With Differential Ord2 Eos ABS# 0.3 K/ul 02/19/2016 Cbc With Differential Ord2 Baso ABS# 0.0 K/ul 02/19/2016 Lipid Ord30 CHOL 174 mg/dL 02/19/2016 Lipid Ord30 HDL 54.0 mg/dl 02/19/2016 Lipid Ord30 TRIG 110 mg/dL 02/19/2016 Lipid Ord30 LDL 98 mg/dL 02/19/2016 Lipid Ord30 C/HDL 3.2 Ratio 02/19/2016 %Hba1C Qdl070 % HbA1c 91844-7 6.0 % 11/11/2015 %Hba1C Wok862 Gluc Ave 126 mg/dL 11/11/2015 %Hba1C Cqv529 % HbA1c 58854-8 6.0 % 11/07/2015 %Hba1C Tym743 Gluc Ave 126 mg/dL 11/07/2015 Cbc With [...] 32.0 pg 11/06/2015 Cbc With Differential Ord2 Routt% 9.5 % 11/06/2015 Cbc With Differential Ord2 [...] 1.79 K/ul 11/06/2015 Cbc With Differential Ord2 Routt ABS# 0.6 K/ul 11/06/2015 Cbc With Differential Ord2 Eos ABS# 0.3 K/ul 11/06/2015 Cbc With Differential Ord2 Baso ABS# 0.0 K/ul 11/06/2015 Comp Metabolic Yjl806 NA 141 mEq/L 11/06/2015 Comp Metabolic Ypv322 K 4.3 mEq/L 11/06/2015 Comp Metabolic Sti981 CL 107 mEq/L 11/06/2015 Comp Metabolic Dao354 CO2 28.0 mEq/L 11/06/2015 Comp Metabolic Pxy123 AN ION GAP 10 11/06/2015 Comp Metabolic Jab983 GL UCOSE 117 mg/dL 11/06/2015 Comp Metabolic Dtz301 Cr eat 0.9 mg/dL 11/06/2015 Comp Metabolic Pjs218 eG FR 88 ml/min/1.73m2 11/05 Comp Metabolic Wtp682 BUN 22 mg/dL 11/06/2015 Comp Metabolic Yjh178 B/ C Ratio 25.0 Ratio 11/06/2015 Comp Metabolic Imh339 CA LCIUM 9.1 mg/dL 11/06/2015 Comp Metabolic Iyt044 AL K PHOS 59 U/L 11/06/2015 Comp Metabolic Hfa637 T(SGOT) 23 U/L 11/06/2015 Comp Metabolic Rtg390 AL T(SGPT) 26 U/L 11/06/2015 Comp Metabolic Xkh577 BI LI T 0.6 mg/dL 11/06/2015 Comp Metabolic Sut757 AL BUMIN 4.0 g/dL 11/06/2015 Comp Metabolic Nma990 TP RO 6.4 g/dL 11/06/2015 Comp Metabolic Trc038 GL OB 2.4 g/dL 11/06/2015 Comp Metabolic Bbd365 A/ G Ratio 1.7 Ratio 11/06/2015 Comp Metabolic Mxo597 Os mo 286 mOsmo 11/06/2015 Tsh Ord6 hTSH II 2.59 uIU/mL 11/06/2015 Lipid Ord30 CHOL 159 mg/dL 11/06/2015 Lipid Ord30 HDL 42.0 mg/dl 11/06/2015 Lipid Ord30 TRIG 129 mg/dL 11/06/2015 Lipid Ord30 LDL 91 mg/dL 11/06/2015 Lipid Ord30 C/HDL 3.8 Ratio 11/06/2015 Comp Metabolic Ihw445 NA 140 mEq/L 08/08/2015 Comp Metabolic Ymf020 K 4.0 mEq/L 08/08/2015 Comp Metabolic Zrt653 CL 108 mEq/L 08/08/2015 Comp Metabolic Jyl322 CO2 25.0 mEq/L 08/08/2015 Comp Metabolic Hcp074 AN ION GAP 11 08/08/2015 Comp Metabolic Cqb229 GL UCOSE 100 mg/dL 08/08/2015 Comp Metabolic Rmq727 Cr eat 0.9 mg/dL 08/08/2015 Comp Metabolic Lbf937 eG FR 82 ml/min/1.73m2 08/07 Comp Metabolic Rhw204 BUN 19 mg/dL 08/08/2015 Comp Metabolic Oyq649 B/ C Ratio 20.2 Ratio 08/08/2015 Comp Metabolic Pmc548 CA LCIUM 8.5 mg/dL 08/08/2015 Comp Metabolic Tuw087 AL K PHOS 56 U/L 08/08/2015 Comp Metabolic Nnq121 T(SGOT) 18 U/L 08/08/2015 Comp Metabolic Sjf750 AL T(SGPT) 17 U/L 08/08/2015 Comp Metabolic Esr172 BI LI T 0.7 mg/dL 08/08/2015 Comp Metabolic Cbi037 AL BUMIN 3.9 g/dL 08/08/2015 Comp Metabolic Vah075 TP RO 6.2 g/dL 08/08/2015 Comp Metabolic Ovh957 GL OB 2.3 g/dL 08/08/2015 Comp Metabolic Rdx589 A/ G Ratio 1.7 Ratio 08/08/2015 Comp Metabolic Smq948 Os mo 282 mOsmo 08/08/2015 Tsh Ord6 hTSH II 3.19 uIU/mL 08/08/2015 %Hba1C Weu495 % HbA1c 17881-4 5.7 % 08/08/2015 %Hba1C Hzo305 Gluc Ave 117 mg/dL 08/08/2015 Cbc With [...] 31.4 pg 08/08/2015 Cbc With Differential Ord2 Routt% 10.9 % 08/08/2015 Cbc With Differential Ord2 [...] 1.51 K/ul 08/08/2015 Cbc With Differential Ord2 Routt ABS# 0.6 K/ul 08/08/2015 Cbc With Differential [...] CPT-4: J3301 08/28/2018 DRAIN/INJECT JOINT/B URSA CPT-4: 27961 08/28/2018 TRIAMCINOLONE ACET I [place] NOS CPT-4: J3301 04/26/2018 DRAIN/INJECT JOINT/B URSA CPT-4: 04/26/2018 DRAIN/INJECT JOINT/B URSA CPT-4: 60021 08/25/2017 PPPS, SUBSEQ VISIT CPT- 4: G0439 05/30/2017 ADMIN INFLUENZA VIRU S VAC CPT-4: G0008 12/21/2016 FLU VACC PRSV FREE I NC ANTIG CPT-4: 72045 12/21/2016 PPPS, SUBSEQ VISIT CPT- 4: G0439 05/21/2016 TRIAMCINOLONE ACET I [place] NOS CPT-4: J3301 04/21/2016 THER/PROPH/DIAG INJ SC/IM CPT-4: 98563 04/21/2016 DRAIN/INJECT JOINT/B URSA CPT-4: 59758 11/13/2015 PNEUMOCOCCAL VACC [address]: 40638389 CPT-4: 82571 11/13/2015 ADMIN PNEUMOCOCCAL V ACCINE SNOMED CT: 21107029 CPT-4: G0009 11/13/2015 ADMIN INFLUENZA VIRU S VAC CPT-4: G0008 11/11/2015 FLU VACC 4 AZUL 3 YRS PLUS IM SNOMED CT: 64014044 CPT-4: 00526 11/11/2015 Vital Signs Date Vital 09/06/2018 Blood Pressure 1: 130/78 Code: 8480-6 BMI: 25.2 Code: 83541-7 Heart Rate 1: 70 bpm Height: 5'7" SpO2: 98% Weight: 161 lbs 08/28/2018 Blood Pressure 1: 126/70 Code: 8480-6 BMI: 25.5 Code: 34512-5 Heart Rate 1: 62 bpm Height: 5'7" SpO2: 97% Weight: 163 lbs 05/22/2018 Blood Pressure 1: 130/72 Code: 8480-6 BMI: 25.5 Code: 31058-4 Heart Rate 1: 84 bpm Height: 5'7" SpO2: 96% Weight: 163 lbs 04/26/2018 Blood Pressure 1: 118/56 Code: 8480-6 BMI: 25.5 Code: 78366-0 Heart Rate 1: 60 bpm Height: 5'7" SpO2: 96% Weight: 163 lbs 12/21/2017 Blood Pressure 1: 132/56 Code: 8480-6 BMI: 25.7 Code: 73824-6 Heart Rate 1: 58 bpm Height: 5'7" SpO2: 93% Weight: 164 lbs 08/25/2017 Blood Pressure 1: 126/74 Code: 8480-6 BMI: 26.2 Code: 96319-6 Heart Rate 1: 70 bpm Height: 5'7" SpO2: 94% Weight: 167 lbs 05/30/2017 Blood Pressure 1: 120/66 Code: 8480-6 BMI: 26.6 Code: 76762-3 Heart Rate 1: 66 bpm Height: 5'7" SpO2: 95% Waist Measure (cm): 97 cm Weight: 170 lbs 04/20/2017 Blood Pressure 1: 138/78 Code: 8480-6 BMI: 26.6 Code: 08001-0 Heart Rate 1: 86 bpm Height: 5'7" SpO2: 96% Weight: 170 lbs 01/21/2017 Blood Pressure 1: 136/70 Code: 8480-6 BMI: 26.3 Code: 68904-7 Heart Rate 1: 79 bpm Height: 5'7" SpO2: 95% Weight: 168 lbs 10/22/2016 Blood Pressure 1: 134/72 Code: 8480-6 BMI: 26.3 Code: 79285-9 Heart Rate 1: 70 bpm Height: 5'7" SpO2: 95% Weight: 168 lbs 10/04/2016 Blood Pressure 1: 142/80 Code: 8480-6 BMI: 26.6 Code: 85658-5 Heart Rate 1: 72 bpm Height: 5'7" SpO2: 93% Weight: 170 lbs 06/18/2016 Blood Pressure 1: 132/76 Code: 8480-6 BMI: 26.2 Code: 40075-0 Heart Rate 1: 65 bpm Height: 5'7" SpO2: 95% Weight: 167 lbs 8 oz 05/21/2016 Blood Pressure 1: 126/76 Code: 8480-6 BMI: 26.0 Code: 59868-7 Heart Rate 1: 72 bpm Height: 5'7" SpO2: 98% Weight: 166 lbs 04/29/2016 Blood Pressure 1: 128/70 Code: 8480-6 BMI: 25.7 Code: 85182-6 Heart Rate 1: 67 bpm Height: 5'7" SpO2: 97% Temperature: 36.3 (C ) / 97.4 (F) Weight: 164 lbs 04/21/2016 Blood Pressure 1: 130/62 Code: 8480-6 BMI: 26.3 Code: 17454-8 Heart Rate 1: 74 bpm Height: 5'7" SpO2: 96% Temperature: 37.0 (C ) / 98.6 (F) Weight: 168 lbs 02/20/2016 Blood Pressure 1: 120/64 Code: 8480-6 BMI: 26.2 Code: 73204-8 Heart Rate 1: 65 bpm Height: 5'7" SpO2: 94% Weight: 167 lbs 01/01/2016 Blood Pressure 1: 106/60 Code: 8480-6 BMI: 25.7 Code: 31166-1 Heart Rate 1: 73 bpm Height: 5'7" SpO2: 98% Weight: 164 lbs 11/13/2015 Blood Pressure 1: 122/86 Code: 8480-6 BMI: 25.8 Code: 85494-6 Heart Rate 1: 80 bpm Height: 5'7" SpO2: 92% Weight: 165 lbs 11/07/2015 Blood Pressure 1: 118/64 Code: 8480-6 BMI: 25.8 Code: 77564-7 Heart Rate 1: 66 bpm Height: 5'7" SpO2: 95% Weight: 165 lbs 08/07/2015 Blood Pressure 1: 122/80 Code: 8480-6 BMI: 24.4 Code: 10622-0 Heart Rate 1: 74 bpm Height: 5'7" [...] Encounters Encounter Performer Loca tion Codes Date [id number] EST. PATIENT, LEVEL III Diagnosis: Other urticaria[ICD10: L50.8] Diagnosis: Rash and other nonspecific skin eruption[ICD10: R21] Lakeisha Hoskins MD, [facility] CPT-4: 71502 09/06/201858148 EST. PATIENT, LEVEL III Diagnosis: Type 2 diabetes mellitus without complications[ICD10: E11.9] Diagnosis: Essential (primary) hypertension[ICD10: I10] Diagnosis: Pain in right knee[ICD10: M25.561] Diagnosis: Primary generalized (osteo)arthritis[ICD10: M15.0] Lakeisha Hoskins MD, [facility] CPT-4: 05903 08/28/2018 ([id number]) 37260 EST. P ATIENT, LEVEL III Diagnosis: Pain in left hip[ICD10: M25.552] Diagnosis: Pain in left shoulder[ICD10: M25.512] Nancy Hoskins MD, [facility] CPT-4: 40092 05/22/2018 42146 EST. PATIENT, LEVEL III Diagnosis: Essential (primary) hypertension[ICD10: I10] Diagnosis: Pain in right knee[ICD10: M25.561] Diagnosis: Pain in left shoulder[ICD10: M25.512] Lakeisha Hoskins MD, [facility] CPT- 4: 14546 04/26/2018 62226 EST. PATIENT, LEVEL IV Diagnosis: Type 2 diabetes mellitus without complications[ICD10: E11.9] Diagnosis: Essential (primary) hypertension[ICD10: I10] Diagnosis: Pain in right knee[ICD10: M25.561] Lakeisha Hoskins MD, [facility] CPT-4: 48234 12/21/2017 30605 EST. PATIENT, LEVEL IV Diagnosis: Type 2 diabetes mellitus without complications[ICD10: E11.9] Diagnosis: Essential (primary) hypertension[ICD10: I10] Diagnosis: Pain in right knee[ICD10: M25.561] Lakeisha Hoskins MD, [facility] CPT-4: 97893 08/25/2017 98699 EST. PATIENT, LEVEL IV Diagnosis: Type 2 diabetes mellitus without complications[ICD10: E11.9] Diagnosis: Essential (primary) hypertension[ICD10: I10] Lakeisha Hoskins MD, [facility] CPT-4: 37255 04/20/2017 ([id number]) 61772 EST. P ATIENT, LEVEL III Diagnosis: Essential (primary) hypertension[ICD10: I10] Diagnosis: Obstructive sleep apnea (adult) (pediatric)[ICD10: G47.33] Nancy Hoskins MD, [facility] CPT-4: 00251 01/21/2017 ([id number]) 86623 EST. P ATIENT, LEVEL IV Diagnosis: Essential (primary) hypertension[ICD10: I10] Diagnosis: Type 2 diabetes mellitus without complications[ICD10: E11.9] Diagnosis: Obstructive sleep apnea (adult) (pediatric)[ICD10: G47.33] Nancy Hoskins MD, [facility] CPT-4: 49342 10/22/2016 ([id number]) 20650 EST. P ATIENT, LEVEL III Diagnosis: Localized edema[ICD10: R60.0] Diagnosis: Rash and other nonspecific skin eruption[ICD10: R21] Nancy Hoskins MD, [facility] CPT-4: 33552 10/04/2016 ([id number]) 83480 EST. P ATIENT, LEVEL IV Diagnosis: Essential (primary) hypertension[ICD10: I10] Diagnosis: Type 2 diabetes mellitus without complications[ICD10: E11.9] Diagnosis: Mixed hyperlipidemia[ICD10: E78.2] Nancy Hoskins MD, [facility] CPT-4: 16859 06/18/2016 ([id number]) 81532 EST. P ATIENT, LEVEL III Diagnosis: Cough[ICD10: R05] Diagnosis: Acute bronchitis, unspecified[ICD10: J20.9] Nancy Hoskins MD, [facility] CPT-4: 31369 04/29/2016 84040 EST. PATIENT, LEVEL IV Diagnosis: Other acute sinusitis[ICD10: J01.80] Diagnosis: Other allergic rhinitis[ICD10: J30.89] Lakeisha Hoskins MD, [facility] CPT-4: 11570 04/21/2016 ([id number]) 33092 EST. P ATIENT, LEVEL IV Diagnosis: Essential (primary) hypertension[ICD10: I10] Diagnosis: Type 2 diabetes mellitus without complications[ICD10: E11.9] Diagnosis: Mixed hyperlipidemia[ICD10: E78.2] Diagnosis: Primary generalized (osteo)arthritis[ICD10: M15.0] Nancy Hoskins MD, [facility] CPT-4: 65089 02/20/2016 ([id number]) 76126 EST. P ATIENT, LEVEL IV Diagnosis: Cough[ICD10: R05] Diagnosis: Acute bronchitis due to Hemophilus influenzae[ICD10: J20.1] Diagnosis: Type 2 diabetes mellitus without complications[ICD10: E11.9] Diagnosis: Essential (primary) hypertension[ICD10: I10] Charlene Hoskins MD, [facility] CPT-4: 52585 01/01/2016 ([id number]) 97250 EST. P ATIENT, LEVEL IV Diagnosis: Essential (primary) hypertension[ICD10: I10] Diagnosis: Mixed hyperlipidemia[ICD10: E78.2] Diagnosis: Type 2 diabetes mellitus without complications[ICD10: E11.9] Nancy Hoskins MD, [facility] CPT-4: 37045 11/07/2015 OFFICE VISIT, NEW - LEVEL 4 Diagnosis: Type 2 diabetes mellitus without complications[ICD10: E11.9] Diagnosis: Essential (primary) hypertension[ICD10: I10] Diagnosis: Mixed hyperlipidemia[ICD10: E78.2] Diagnosis: Elevated prostate specific antigen [PSA][ICD10: R97.2] Nancy Hoskins MD, [facility] CPT-4: 22955 08/07/2015 Plan of Care Planned Activity Notes [...] prednisone taper. 09/06/2018 Appointment: Lakeisha Putnam WPtel: [address] [place], [place] [phone] (30 min) [facility] 09/06/2018 Patient Education: Patient Medication Summary Completed [...] glucose control. 08/28/2018 Appointment: Lakeisha Putnam WPtel: [facility] (30 min) Complex 08/28/2018 Patient Education: Patient Medication Summary Completed 08/28/2018 Patient Education: Diabetes Completed 08/28/2018 Appointment: Lakeisha Putnam WPtel: [facility] (15 min) Moderate 08/21/2018 Visit Plan: Left shoulder pain -sta rted six weeks ago after a fall -will get xrays today and proceed as indicated -okay to take tylenol as needed for pain Left hip pain -also started after fall -xray hip today as well 05/22/2018 Appointment: Nancy Tavares WPtel: [phone] (30 min) Complex 05/22/2018 Patient Education: [...] injection. 04/26/2018 [facility]ment[phone] [facility] ([facility] min) [facility] 04/26/2018 Patient Education: Patient [...] improve. 12/21/2017 App[facility]ment[phone] [facility] (15 min) Moderate 12/21/2017 Patient Education: Patient [...] injection. 08/25/2017 Appointment: Lakeisha Putnam WPtel: [phone] [facility] (15 min) Moderate 08/25/2017 Patient Education: [...] Summary Completed 05/30/2017 Appointment: Lakeisha Putnam WPtel: [facility] [facility] - Annual Wellness Visit 05/27/2017 Appointment: Nancy Tavares WPtel: [phone] [phone] (30 min) Complex 04/22/2017 Visit Plan: [...] controlled. 04/20/2017 Appointment: Lakeisha Putnam WPtel: [phone] [facility] [place] (30 min) Complex 04/20/2017 Patient [...] improved sleep, etc. Will fax note to [facility]. 01/21/2017 Appointment: Nancy Tavares WPtel: [phone] [phone] [place] (30 min) Complex 01/21/2017 Appointment: Nancy Tavares WPtel: [phone] [phone] (30 min) Complex 01/21/2017 Patient Education: [...] doing well-due for a new machine-will call [facility] to see what we need to do to get him a new machine. 10/22/2016 Appointment: Nancy Tavares WPtel: [phone] [phone] (30 min) Complex 10/22/2016 Patient Education: [...] plan. 10/04/2016 Appointment: Nancy Tavares WPtel: [phone] [phone] (15 min) Moderate 10/04/2016 Patient Education: Patient [...] dications. 06/18/2016 Appointment: Nancy Tavares WPtel: [phone] [phone] (15 min) Moderate 06/18/2016 Patient Education: [...] acutely worsen. 04/29/2016 Appointment: Nancy Tavares WPtel: [address] [place] [phone] (15 min) Moderate 04/29/2016 Patient Education: Patient Medication Summary Completed 04/29/2016 Care Plan: CHEST X-RAY 2VW FRONTAL&LATL LOINC : 51188-2 Pending 04/29/2016 Visit Plan: Sinusitis - Pt [...] nasal steroid allergy spray. 04/21/2016 Appointment: Lakeisha uPtnam WPtel: [address] [place], [place] [phone] (15 min) Moderate 04/21/2016 Patient Education: Patient [...] provided 02/20/2016 Appointment: Nancy Tavares WPtel: [phone] [phone] (30 min) Complex 02/20/2016 Patient Education: Patient [...] controlled. 01/01/2016 [facility]ment[phone] [facility] ([facility] min) Moderate 01/01/2016 Patient Education: [...] injection. 11/13/2015 Appointment: Nancy Tavares WPtel: [phone] [phone] (15 min) Moderate 11/13/2015 Patient Education: [...] response to medications. DM-too early for Hgb [id number] to have done next week 11/07/2015 Appointment: [facility] [phone] [phone] (15 min) Moderate 11/07/2015 Patient Education: Patient [...] biopsy results 08/07/2015 Appointment: Nancy Tavares WPtel: [phone] New Patient 08/07/2015 Patient Education: Patient Medication [...] occurs at the site of injection. . Hypertension - wel l controlled - [...] occurs at the site of injection. . Sinusitis - Pt has acute infection [...] in the nasal steroid allergy spray. . Hypertension - wel l controlled - [...] to medications. Generalized OA-handicap placard provided . Hypertension - wel l controlled - [...] response to medications. DM-too early for Hgb [id number] to have done next week . Rash - The patient was instructed [...] pt also given RX for prednisone taper. CXR STOP SYMBICORT TWO PUFFS BID . Bronchitis - acute case of bronchitis identified. Pt has been given antibiotics, breathing treatments as appropriate, and pt has been instructed to call if symptoms are not improved, or if symptoms acutely worsen. . Sinusitis - Pt has acute infection [...] . Diabetes Mellitus - controlled - per aime iraheta FSBS reports. I have recommended for the [...] after fall -xray hip today as well . Hypertension - wel l controlled - [...] improved sleep, etc. Will fax note to [facility]. . Hypertension - con tinue with current [...] pain is worsening or does not improve. COMPRESSION STOCKING S KETOCONAZOLE SHAMPOO THREE TIMES WEEKLY CONTINUE STEROID CREAM ORDERED BY PRESS HELPER CULTURE RASH LEFT AXILLA . Edema - [...] worse. Patient verbalized understanding of plan. . Medicare Exam - to day we [...] DOPA paperwork for health care surrogate. . Medicare Exam - to day we [...] DOPA paperwork for health care surrogate. . Hypertension - wel l controlled - [...] allow for greater blood glucose control. . Bronchitis - acute case of bronchitis [...] are starting to become less controlled. . Joint Injection - Pt was given [...] DOPA paperwork for health care surrogate. . Hypertension - wel l controlled - [...] doing well-due for a new machine-will call [facility] to see what we need to do to get him a new machine.
--- OUTSIDE RECORDS SUMMARY | 2019-04-11 03:27 | XMS REPORT | CCD ---
Author Author Cesar Tavares Organization Charlene Hoskins MD, [facility] Address [address] [place] [address] Phone Care Team Providers Care Emulsification Operator Name Role Phone PP Unavailable CCM Unavailable Summary Purpose Interface Exchange Insurance Providers Payer name Policy type / Coverage type Covered constitution party ID Effective Begin Date Effective End Date WPS Medicare Part B Medicare Part B [id number] Unknown [facility] Part B [id number] Un known Family history Brother Diagnosis Age [...] Retir ed 08/07/[address]: 0394568 Quit over 10 years ago 1970 08/07/[address]: 316594297 Never drinks alcohol 08/07/2015 Allergies, Adverse Reactions, [...] Date Stop Date Sta tus Fill Instructions mupirocin 2 % topica l ointment RxNorm: 067961 1 Application TOP BID to left shoulder spots 09/06/2018 No Stop Date Active prednisone 20 mg tablet RxNorm: 375147 Tablet(s) PO 09/06/2018 No Stop Date Active 60,4 0,20,10 nystatin 100,000 uni t/gram topical cream RxNorm: 697530 1 Application TOP QID to groin area 09/06/2018 No Stop Date Active Kenalog 40 mg/mL maggie pension for injection RxNorm: 3422447 1 Milliliter(s) Inj 08/28/2018 08/28/2018 In active losartan 50 mg tablet RxNorm: 949441 1 Tablet(s) PO daily TAKE 1 TABLET BY MO UTH ONCE DAILY 07/25/2018 01/20/2019 Active meloxicam 7.5 mg tablet RxNorm: 013053 TAKE 1 TABLET BY MOUTH ONCE DAILY 06/01/2018 No Stop Date Active Advair Diskus 250 mc g-50 mcg/dose powder for inhalation RxNorm: 0951166 INHALE 1 DOSE BY MOUTH TWICE DAILY 05/22/2018 No Stop Date Active fluticasone propiona te 50 mcg/actuation nasal spray,suspension RxNorm: 6201886 USE 2 SPRAY(S) IN EACH NOSTRIL ONCE DAILY 05/17/2018 No Stop Date Active simvastatin 20 mg ta blet RxNorm: 058126 TAKE 1 TABLET BY MOUT H ONCE DAILY 05/16/2018 No Stop Date Active Kenalog 40 mg/mL maggie pension for injection RxNorm: 8139089 1 Milliliter(s) Inj 04/26/2018 04/26/2018 In active Kenalog 40 mg/mL maggie pension for injection RxNorm: 8539674 1 Milliliter(s) Inj 04/26/2018 04/26/2018 In active losartan 50 mg tablet RxNorm: 444982 TAKE 1 TABLET BY MOUTH ONCE DAILY 04/24/2018 07/24/2018 In active fluticasone propiona te 50 mcg/actuation nasal spray,suspension RxNorm: 3388124 USE 2 SPRAY(S) IN EACH NOSTRIL ONCE DAILY 03/27/2018 05/16/2018 Inactive Advair Diskus 250 mc g-50 mcg/dose powder for inhalation RxNorm: 7504576 INHALE 1 DOSE BY MOUTH TWICE DAILY 03/21/2018 05/21/2018 Inactive montelukast 10 mg ta blet RxNorm: 709412 TAKE ONE TABLET BY MO UTH ONCE DAILY 03/15/2018 No Stop Date Active Advair Diskus 250 mc g-50 mcg/dose powder for inhalation RxNorm: 3626386 INHALE 1 DOSE BY MOUTH TWICE DAILY 02/20/2018 03/20/2018 Inactive fluticasone 50 mcg/a ctuation nasal spray,suspension RxNorm: 2145857 USE 2 SPRAY(S) IN EACH NOSTRIL ONCE DAILY 02/08/2018 03/26/2018 Inactive metformin 500 mg tablet RxNorm: 346871 TAKE 1 TABLET BY MOUTH ONCE DAILY 01/16/2018 No Stop Date Active Advair Diskus 250 mc g-50 mcg/dose powder for inhalation RxNorm: 9492811 INHALE 1 DOSE BY MOUTH TWICE DAILY 12/19/2017 02/19/2018 Inactive meloxicam 7.5 mg tablet RxNorm: 636993 TAKE 1 TABLET BY MOUTH ONCE DAILY 12/01/2017 05/31/2018 In active simvastatin 20 mg ta blet RxNorm: 292929 TAKE 1 TABLET BY MOUT H ONCE DAILY 11/14/2017 05/15/2018 In active losartan 50 mg tablet RxNorm: 334226 TAKE ONE TABLET BY MOUTH ONCE DAILY 10/27/2017 04/23/2018 In active Advair Diskus 250 mc g-50 mcg/dose powder for inhalation RxNorm: 7618300 INHALE 1 DOSE BY MOUTH TWICE DAILY 10/19/2017 12/18/2017 Inactive fluticasone 50 mcg/a ctuation nasal spray,suspension RxNorm: 6123944 USE TWO SPRAY(S) IN EACH NOSTRIL ONCE DAILY 10/19/2017 02/07/2018 Inactive Kenalog 40 mg/mL maggie pension for injection RxNorm: 9841723 1 Milliliter(s) Inj 08/25/2017 08/25/2017 In active meloxicam 7.5 mg tablet RxNorm: 526847 TAKE ONE TABLET BY MOUTH ONCE DAILY 06/06/2017 11/30/2017 In active simvastatin 20 mg ta blet RxNorm: 895229 TAKE ONE TABLET BY MO UTH ONCE DAILY 05/17/2017 11/13/2017 In active metformin 500 mg tablet RxNorm: 845014 TAKE ONE TABLET BY MOUTH ONCE DAILY 05/05/2017 01/15/2018 In active Advair Diskus 250 mc g-50 mcg/dose powder for inhalation RxNorm: 5160941 INHALE ONE DOSE BY MOUTH TWICE DAILY 04/19/2017 10/18/2017 Inactive Tamiflu 75 mg capsule RxNorm: 264079 1 Capsule(s) PO daily 03/25/2017 03/24/2017 Inactive Tamiflu 75 mg capsule RxNorm: 890008 1 Capsule(s) PO daily 03/25/2017 03/31/2017 Inactive montelukast 10 mg ta blet RxNorm: 674033 TAKE ONE TABLET BY MO UTH ONCE DAILY 03/21/2017 03/14/2018 In active losartan 50 mg tablet RxNorm: 736794 TAKE ONE TABLET BY MOUTH ONCE DAILY 01/27/2017 10/26/2017 In active fluticasone 50 mcg/a ctuation nasal spray,suspension RxNorm: 5632651 USE TWO SPRAY(S) IN EACH NOSTRIL ONCE DAILY 01/17/2017 10/18/2017 Inactive meloxicam 7.5 mg tablet RxNorm: 330876 TAKE ONE TABLET BY MOUTH ONCE DAILY 12/06/2016 06/03/2017 In active metformin 500 mg tablet RxNorm: 416293 Tablet(s) TAKE ONE TABLET BY MOUTH TWICE DAILY 11/30/2016 11/24/2017 Inactive simvastatin 20 mg ta blet RxNorm: 574331 TAKE ONE TABLET BY MO UTH ONCE DAILY 11/15/2016 05/13/2017 In active Advair Diskus 250 mc g-50 mcg/dose powder for inhalation RxNorm: 8148704 INHALE ONE PUFF BY MOUTH TWICE DAILY 10/22/2016 04/18/2017 Inactive ketoconazole 2 % sha mpoo RxNorm: 688061 1 Application TOP TIW 10/04/2016 10/17/2016 Inactive fluticasone 50 mcg/a ctuation nasal spray,suspension RxNorm: 1611895 USE TWO SPRAY(S) IN EACH NOSTRIL ONCE DAILY 09/21/2016 11/19/2016 Inactive montelukast 10 mg ta blet RxNorm: 862549 TAKE ONE TABLET BY [facility] ONCE DAILY 09/21/2016 03/19/2017 In active losartan 50 mg tablet RxNorm: 346857 TAKE ONE TABLET BY MOUTH ONCE DAILY 08/02/2016 01/26/2017 In active metformin 500 mg tablet RxNorm: 419938 TAKE ONE TABLET BY MOUTH TWICE DAILY 07/22/2016 10/19/2016 In active furosemide 20 mg tablet RxNorm: 780390 1 Tablet(s) PO daily as needed for swell ing 07/21/2016 04/18/2018 Inactive meloxicam 7.5 mg tablet RxNorm: 649121 TAKE ONE TABLET BY MOUTH ONCE DAILY 06/08/2016 12/04/2016 In active cefdinir 300 mg capsule RxNorm: 678692 1 Capsule(s) PO BID 04/29/2016 05/05/2016 Inactive prednisone 20 mg tablet RxNorm: 191288 1 Tablet(s) PO BID 04/29/2016 05/03/2016 Inactive Zithromax Z-Sherif 250 mg tablet RxNorm: 746661 1 Tablet(s) PO UD 04/21/2016 04/28/2016 Inactive Kenalog 40 mg/mL maggie pension for injection RxNorm: 5743087 1 Milliliter(s) Inj 04/21/2016 04/21/2016 In active montelukast 10 mg ta blet RxNorm: 398343 TAKE ONE TABLET BY [facility] ONCE DAILY 03/22/2016 09/17/2016 In active fluticasone 50 mcg/a ctuation nasal spray,suspension RxNorm: 1976563 2 [place] NASAL daily each nare 03/15/2016 07/12/2016 Inactive qs metformin 500 mg tablet RxNorm: 872099 1 Tablet(s) PO daily 01/16/2016 2016 Inactive Patient does not need a refill- just upd ate dosing Advair Diskus 250 mc g-50 mcg/dose powder for inhalation RxNorm: 0806645 1 INH BID 01/01/2016 04/29/2016 In active Advair Diskus 250 mc g-50 mcg/dose powder for inhalation RxNorm: 4451394 1 INH daily 01/01/2016 12/31/2015 Inactive metformin 500 mg tablet RxNorm: 150419 1 Tablet(s) PO daily 01/01/2016 01/15/2016 Inactive simvastatin 40 mg ta blet RxNorm: 377722 1 Tablet(s) PO daily 01/01/2016 04/17/2018 Inactive azithromycin 250 mg tablet RxNorm: 122914 1 Tablet(s) PO take t wo pills on day #1, then one pill daily x 4 more days 01/01/2016 02/17/2016 Inactive meloxicam 7.5 mg tablet RxNorm: 792814 1 Tablet(s) PO daily 12/11/2015 06/07/2016 Inactive simvastatin 20 mg ta blet RxNorm: 376238 1 Tablet(s) PO daily 11/21/2015 12/31/2015 Inactive metformin 500 mg tablet RxNorm: 659342 1 Tablet(s) PO BID 11/21/2015 12/31/2015 Inactive Advair Diskus 250 mc g-50 mcg/dose powder for inhalation RxNorm: 3589508 1 INH BID 11/21/2015 12/31/2015 In active montelukast 10 mg ta blet RxNorm: 107034 1 Tablet(s) PO daily 09/25/2015 03/21/2016 Inactive losartan 50 mg tablet RxNorm: 120545 1 Tablet(s) PO daily 09/04/2015 08/01/2016 Inactive Restasis 0.05 % eye drops in a dropperette RxNorm: 850255 1 gtts OPH BID 08/07/2015 No Stop Date Active meloxicam 7.5 mg tablet RxNorm: 872240 1 Tablet(s) PO daily 08/07/2015 09/05/2015 Inactive Kay oral RxNorm: 461202 oral No Start Date Active finasteride 5 mg tablet RxNorm: 320041 1 Tablet(s) PO daily No Start Date Active Zyrtec 10 mg tablet RxNorm: 0160959 1 Tablet(s) PO daily No Start Date Active Co Q-10 200 mg capsule RxNorm: 259063 1 Capsule(s) PO daily No Start Date Active Calcium 500 + D (D3) oral RxNorm: 734393 oral No S tart Date Active simethicone 125 mg c apsule RxNorm: 188080 Capsule(s) PO as needed No Start Date Active Vitamin D3 1,000 uni t tablet RxNorm: 053576 1 Tablet(s) PO daily No Start Date Active omega-3 fatty acids 1,000 mg capsule RxNorm: 4 Capsule(s) PO daily No Start Date Active triamcinolone aceton chasity 0.1 % topical cream RxNorm: 0615048 1 TOP UD No Start Date Active fluticasone 50 mcg/a ctuation nasal spray,suspension RxNorm: 7905681 2 [place] NASAL daily each nare No Start Date 03/14/2016 Inactive losartan 50 mg tablet RxNorm: 052047 1 Tablet(s) PO daily No Start Date 09/03/2015 Inactive metformin 500 mg tablet RxNorm: 499756 1 Tablet(s) PO daily No Start Date 11/20/2015 Inactive simvastatin 40 mg ta blet RxNorm: 437427 1 Tablet(s) PO daily No Start Date 11/20/2015 Inactive furosemide 20 mg tablet RxNorm: 505303 1 Tablet(s) PO daily as needed No Start Date 07/20/2016 Inactive Advair Diskus 250 mc g-50 mcg/dose powder for inhalation RxNorm: 6700073 1 INH daily No Start Date 11/20/2015 Inactive Multiple Vitamin oral RxNorm: 31528 oral No Start Date 12/31/2015 Inactive montelukast 10 mg ta blet RxNorm: 605678 1 Tablet(s) PO daily No Start Date 09/24/2015 Inactive Medication Administered Medication Codes Instruc tions Start Date Status Kenalog 40 mg/mL suspension for injection RxNorm: 6522948 1Milliliter 08/28/2018 N o longer Active Kenalog 40 mg/mL suspension for injection RxNorm: 4630023 1Milliliter 04/26/2018 N o longer Active Kenalog 40 mg/mL suspension for injection RxNorm: 1741338 1Milliliter 04/26/2018 N o longer Active Kenalog 40 mg/mL suspension for injection RxNorm: 4554256 1Milliliter 08/25/2017 N o longer Active Kenalog 40 mg/mL suspension for injection RxNorm: 6259741 1Milliliter 04/21/2016 N o longer Active Immunizations [...] 32.4 pg 08/28/2018 Cbc With Differential Ord2 [place]% 10.1 % 08/28/2018 Cbc With Differential Ord2 [...] 2.05 K/ul 08/28/2018 Cbc With Differential Ord2 [place] ABS# 0.9 K/ul 08/28/2018 Cbc With Differential Ord2 Eos ABS# 0.5 K/ul 08/28/2018 Cbc With Differential Ord2 Baso ABS# 0.0 K/ul 08/28/2018 %Hba1C Aki261 % HbA1c 26286-2 5.8 % 08/28/2018 %Hba1C Ynh780 Gluc Ave 120 mg/dL 08/28/2018 Comp Metabolic Ftx844 NA 141 mEq/L 08/28/2018 Comp Metabolic Bhw486 K 4.3 mEq/L 08/28/2018 Comp Metabolic Wbj792 CL 105 mEq/L 08/28/2018 Comp Metabolic Gsz677 CO2 28.0 mEq/L 08/28/2018 Comp Metabolic Uwd732 AN ION GAP 12 08/28/2018 Comp Metabolic Hid429 GL UCOSE 101 mg/dL 08/28/2018 Comp Metabolic Rok216 Cr eat 0.9 mg/dL 08/28/2018 Comp Metabolic Dus480 eG FR 89 ml/min/1.73m2 08/28 Comp Metabolic Kmo585 BUN 26 mg/dL 08/28/2018 Comp Metabolic Sey315 B/ C Ratio 29.9 Ratio 08/28/2018 Comp Metabolic Rmq462 CA LCIUM 9.4 mg/dL 08/28/2018 Comp Metabolic Qpn666 AL K PHOS 60 U/L 08/28/2018 Comp Metabolic Abm674 T(SGOT) 17 U/L 08/28/2018 Comp Metabolic Gzr779 AL T(SGPT) 27 U/L 08/28/2018 Comp Metabolic Pjy570 BI LI T 0.6 mg/dL 08/28/2018 Comp Metabolic Jdh528 AL BUMIN 4.2 g/dL 08/28/2018 Comp Metabolic Ruf482 TP RO 6.6 g/dL 08/28/2018 Comp Metabolic Sfs586 GL OB 2.4 g/dL 08/28/2018 Comp Metabolic Dgv939 A/ G Ratio 1.7 Ratio 08/28/2018 Comp Metabolic Fwk634 Os mo 286 mOsmo 08/28/2018 %Hba1C Pas220 % HbA1c 42155-4 6.0 % 12/21/2017 %Hba1C Gge058 Gluc Ave 126 mg/dL 12/21/2017 %Hba1C Xzu005 % HbA1c 83327-5 6.2 % 04/20/2017 %Hba1C Gun707 Gluc Ave 131 mg/dL 04/20/2017 Cbc With [...] 31.8 pg 04/20/2017 Cbc With Differential Ord2 [place]% 9.3 % 04/20/2017 Cbc With Differential Ord2 [...] 1.82 K/ul 04/20/2017 Cbc With Differential Ord2 [place] ABS# 0.6 K/ul 04/20/2017 Cbc With Differential Ord2 Eos ABS# 0.2 K/ul 04/20/2017 Cbc With Differential Ord2 Baso ABS# 0.0 K/ul 04/20/2017 Comp Metabolic Jaw162 NA 141 mEq/L 04/20/2017 Comp Metabolic Nng037 K 4.5 mEq/L 04/20/2017 Comp Metabolic Rne285 CL 106 mEq/L 04/20/2017 Comp Metabolic Mls248 CO2 27.0 mEq/L 04/20/2017 Comp Metabolic Okk036 AN ION GAP 13 04/20/2017 Comp Metabolic Hru390 GL UCOSE 109 mg/dL 04/20/2017 Comp Metabolic Gza242 Cr eat 1.0 mg/dL 04/20/2017 Comp Metabolic Uum957 eG FR 81 ml/min/1.73m2 04/20 Comp Metabolic Qek082 BUN 23 mg/dL 04/20/2017 Comp Metabolic Naj396 B/ C Ratio 24.2 Ratio 04/20/2017 Comp Metabolic Prh419 CA LCIUM 9.3 mg/dL 04/20/2017 Comp Metabolic Ipg146 AL K PHOS 82 U/L 04/20/2017 Comp Metabolic Qea675 T(SGOT) 22 U/L 04/20/2017 Comp Metabolic Vic727 AL T(SGPT) 24 U/L 04/20/2017 Comp Metabolic Qll915 BI LI T 0.4 mg/dL 04/20/2017 Comp Metabolic Rfl808 AL BUMIN 4.3 g/dL 04/20/2017 Comp Metabolic Urf163 TP RO 6.8 g/dL 04/20/2017 Comp Metabolic Fkj774 GL OB 2.5 g/dL 04/20/2017 Comp Metabolic Oju842 A/ G Ratio 1.7 Ratio 04/20/2017 Comp Metabolic Zhv025 Os mo 286 mOsmo 04/20/2017 %Hba1C Kwj667 % HbA1c 97467-4 5.8 % 10/22/2016 %Hba1C Saz998 Gluc Ave 120 mg/dL 10/22/2016 Cbc With [...] 32.5 pg 10/22/2016 Cbc With Differential Ord2 [place]% 10.3 % 10/22/2016 Cbc With Differential Ord2 [...] 1.85 K/ul 10/22/2016 Cbc With Differential Ord2 [place] ABS# 0.8 K/ul 10/22/2016 Cbc With Differential Ord2 Eos ABS# 0.3 K/ul 10/22/2016 Cbc With Differential Ord2 Baso ABS# 0.0 K/ul 10/22/2016 Comp Metabolic Aze316 NA 141 mEq/L 10/22/2016 Comp Metabolic Njt076 K 4.4 mEq/L 10/22/2016 Comp Metabolic Kev407 CL 105 mEq/L 10/22/2016 Comp Metabolic Pmp836 CO2 27.0 mEq/L 10/22/2016 Comp Metabolic Wpl494 AN ION GAP 13 10/22/2016 Comp Metabolic Bbp335 GL UCOSE 103 mg/dL 10/22/2016 Comp Metabolic Fwi548 Cr eat 1.0 mg/dL 10/22/2016 Comp Metabolic Qsd100 eG FR 76 ml/min/1.73m2 10/22 Comp Metabolic Jct902 BUN 27 mg/dL 10/22/2016 Comp Metabolic Rxl538 B/ C Ratio 27.0 Ratio 10/22/2016 Comp Metabolic Nve880 CA LCIUM 9.3 mg/dL 10/22/2016 Comp Metabolic Yzw434 AL K PHOS 72 U/L 10/22/2016 Comp Metabolic Hrf530 T(SGOT) 23 U/L 10/22/2016 Comp Metabolic Yus748 AL T(SGPT) 26 U/L 10/22/2016 Comp Metabolic Yox564 BI LI T 0.4 mg/dL 10/22/2016 Comp Metabolic Qfr165 AL BUMIN 4.2 g/dL 10/22/2016 Comp Metabolic Ive118 TP RO 6.7 g/dL 10/22/2016 Comp Metabolic Aav550 GL OB 2.5 g/dL 10/22/2016 Comp Metabolic Bqh084 A/ G Ratio 1.6 Ratio 10/22/2016 Comp Metabolic Hei078 Os mo 287 mOsmo 10/22/2016 Comp Metabolic Mxj115 NA 143 mEq/L 06/17/2016 Comp Metabolic Zko564 K 4.1 mEq/L 06/17/2016 Comp Metabolic Lns316 CL 108 mEq/L 06/17/2016 Comp Metabolic Xgq910 CO2 28.0 mEq/L 06/17/2016 Comp Metabolic Tvp069 AN ION GAP 11 06/17/2016 Comp Metabolic Gcf941 GL UCOSE 106 mg/dL 06/17/2016 Comp Metabolic Ktv699 Cr eat 0.9 mg/dL 06/17/2016 Comp Metabolic Ouz321 eG FR 92 ml/min/1.73m2 06/17 Comp Metabolic Qla389 BUN 22 mg/dL 06/17/2016 Comp Metabolic Pyg981 B/ C Ratio 25.9 Ratio 06/17/2016 Comp Metabolic Lod072 CA LCIUM 8.8 mg/dL 06/17/2016 Comp Metabolic Wcd304 AL K PHOS 55 U/L 06/17/2016 Comp Metabolic Fhp267 T(SGOT) 21 U/L 06/17/2016 Comp Metabolic Zsf263 AL T(SGPT) 24 U/L 06/17/2016 Comp Metabolic Mgt728 BI LI T 0.6 mg/dL 06/17/2016 Comp Metabolic Njd903 AL BUMIN 4.0 g/dL 06/17/2016 Comp Metabolic Xso483 TP RO 6.2 g/dL 06/17/2016 Comp Metabolic Wzz306 GL OB 2.2 g/dL 06/17/2016 Comp Metabolic Nvc791 A/ G Ratio 1.8 Ratio 06/17/2016 Comp Metabolic Ywb799 Os mo 289 mOsmo 06/17/2016 Lipid Ord30 CHOL 163 mg/dL 06/17/2016 Lipid Ord30 HDL 54.0 mg/dl 06/17/2016 Lipid Ord30 TRIG 133 mg/dL 06/17/2016 Lipid Ord30 LDL 82 mg/dL 06/17/2016 Lipid Ord30 C/HDL 3.0 Ratio 06/17/2016 %Hba1C Gkj511 % HbA1c 08611-3 6.0 % 06/17/2016 %Hba1C Ivj923 Gluc Ave 126 mg/dL 06/17/2016 Total Psa [...] 32.7 pg 06/17/2016 Cbc With Differential Ord2 [place]% 10.7 % 06/17/2016 Cbc With Differential Ord2 [...] 1.71 K/ul 06/17/2016 Cbc With Differential Ord2 [place] ABS# 0.6 K/ul 06/17/2016 Cbc With Differential Ord2 Eos ABS# 0.2 K/ul 06/17/2016 Cbc With Differential Ord2 Baso ABS# 0.0 K/ul 06/17/2016 Tsh Ord6 hTSH II 2.91 uIU/mL 06/17/2016 Tsh Ord6 hTSH II 2.45 uIU/mL 02/19/2016 %Hba1C Gxn092 % HbA1c 64718-8 5.8 % 02/19/2016 %Hba1C Dwq378 Gluc Ave 120 mg/dL 02/19/2016 Comp Metabolic Drc466 NA 141 mEq/L 02/19/2016 Comp Metabolic Evh308 K 4.2 mEq/L 02/19/2016 Comp Metabolic Yvw280 CL 107 mEq/L 02/19/2016 Comp Metabolic Ida693 CO2 29.0 mEq/L 02/19/2016 Comp Metabolic Muc920 AN ION GAP 9 02/19/2016 Comp Metabolic Nia796 GL UCOSE 106 mg/dL 02/19/2016 Comp Metabolic Zzu340 Cr eat 0.9 mg/dL 02/19/2016 Comp Metabolic Apv040 eG FR 90 ml/min/1.73m2 02/18 Comp Metabolic Skh995 BUN 24 mg/dL 02/19/2016 Comp Metabolic Zqx322 B/ C Ratio 27.6 Ratio 02/19/2016 Comp Metabolic Cyd029 CA LCIUM 9.1 mg/dL 02/19/2016 Comp Metabolic Loj887 AL K PHOS 67 U/L 02/19/2016 Comp Metabolic Ime860 T(SGOT) 25 U/L 02/19/2016 Comp Metabolic Cvv020 AL T(SGPT) 31 U/L 02/19/2016 Comp Metabolic Edf878 BI LI T 0.6 mg/dL 02/19/2016 Comp Metabolic Avt777 AL BUMIN 4.1 g/dL 02/19/2016 Comp Metabolic Qko676 TP RO 6.5 g/dL 02/19/2016 Comp Metabolic Ufu829 GL OB 2.4 g/dL 02/19/2016 Comp Metabolic Enf239 A/ G Ratio 1.7 Ratio 02/19/2016 Comp Metabolic Akr177 Os mo 286 mOsmo 02/19/2016 Cbc With [...] 31.7 pg 02/19/2016 Cbc With Differential Ord2 [place]% 10.5 % 02/19/2016 Cbc With Differential Ord2 [...] 1.59 K/ul 02/19/2016 Cbc With Differential Ord2 [place] ABS# 0.6 K/ul 02/19/2016 Cbc With Differential Ord2 Eos ABS# 0.3 K/ul 02/19/2016 Cbc With Differential Ord2 Baso ABS# 0.0 K/ul 02/19/2016 Lipid Ord30 CHOL 174 mg/dL 02/19/2016 Lipid Ord30 HDL 54.0 mg/dl 02/19/2016 Lipid Ord30 TRIG 110 mg/dL 02/19/2016 Lipid Ord30 LDL 98 mg/dL 02/19/2016 Lipid Ord30 C/HDL 3.2 Ratio 02/19/2016 %Hba1C Mll276 % HbA1c 76237-8 6.0 % 11/11/2015 %Hba1C Swe981 Gluc Ave 126 mg/dL 11/11/2015 %Hba1C Xux085 % HbA1c 25824-9 6.0 % 11/07/2015 %Hba1C Lvq306 Gluc Ave 126 mg/dL 11/07/2015 Cbc With [...] 32.0 pg 11/06/2015 Cbc With Differential Ord2 [place]% 9.5 % 11/06/2015 Cbc With Differential Ord2 [...] 1.79 K/ul 11/06/2015 Cbc With Differential Ord2 [place] ABS# 0.6 K/ul 11/06/2015 Cbc With Differential Ord2 Eos ABS# 0.3 K/ul 11/06/2015 Cbc With Differential Ord2 Baso ABS# 0.0 K/ul 11/06/2015 Comp Metabolic Dkf127 NA 141 mEq/L 11/06/2015 Comp Metabolic Mpx702 K 4.3 mEq/L 11/06/2015 Comp Metabolic Tem870 CL 107 mEq/L 11/06/2015 Comp Metabolic Rsc764 CO2 28.0 mEq/L 11/06/2015 Comp Metabolic Jvs292 AN ION GAP 10 11/06/2015 Comp Metabolic Gri523 GL UCOSE 117 mg/dL 11/06/2015 Comp Metabolic Nbr668 Cr eat 0.9 mg/dL 11/06/2015 Comp Metabolic Kpp064 eG FR 88 ml/min/1.73m2 11/05 Comp Metabolic Vdu869 BUN 22 mg/dL 11/06/2015 Comp Metabolic Jpz623 B/ C Ratio 25.0 Ratio 11/06/2015 Comp Metabolic Ude105 CA LCIUM 9.1 mg/dL 11/06/2015 Comp Metabolic Oic153 AL K PHOS 59 U/L 11/06/2015 Comp Metabolic Snb946 T(SGOT) 23 U/L 11/06/2015 Comp Metabolic Vgq983 AL T(SGPT) 26 U/L 11/06/2015 Comp Metabolic Jsy479 BI LI T 0.6 mg/dL 11/06/2015 Comp Metabolic Qbv743 AL BUMIN 4.0 g/dL 11/06/2015 Comp Metabolic Cwr519 TP RO 6.4 g/dL 11/06/2015 Comp Metabolic Fqr904 GL OB 2.4 g/dL 11/06/2015 Comp Metabolic Kze224 A/ G Ratio 1.7 Ratio 11/06/2015 Comp Metabolic Jdw164 Os mo 286 mOsmo 11/06/2015 Tsh Ord6 hTSH II 2.59 uIU/mL 11/06/2015 Lipid Ord30 CHOL 159 mg/dL 11/06/2015 Lipid Ord30 HDL 42.0 mg/dl 11/06/2015 Lipid Ord30 TRIG 129 mg/dL 11/06/2015 Lipid Ord30 LDL 91 mg/dL 11/06/2015 Lipid Ord30 C/HDL 3.8 Ratio 11/06/2015 Comp Metabolic Hvd366 NA 140 mEq/L 08/08/2015 Comp Metabolic Sod831 K 4.0 mEq/L 08/08/2015 Comp Metabolic Ply928 CL 108 mEq/L 08/08/2015 Comp Metabolic Lvu744 CO2 25.0 mEq/L 08/08/2015 Comp Metabolic Pdl471 AN ION GAP 11 08/08/2015 Comp Metabolic Ing140 GL UCOSE 100 mg/dL 08/08/2015 Comp Metabolic Vlp053 Cr eat 0.9 mg/dL 08/08/2015 Comp Metabolic Suv908 eG FR 82 ml/min/1.73m2 08/07 Comp Metabolic Kps170 BUN 19 mg/dL 08/08/2015 Comp Metabolic Gva382 B/ C Ratio 20.2 Ratio 08/08/2015 Comp Metabolic Xct221 CA LCIUM 8.5 mg/dL 08/08/2015 Comp Metabolic Amj662 AL K PHOS 56 U/L 08/08/2015 Comp Metabolic Cba260 T(SGOT) 18 U/L 08/08/2015 Comp Metabolic Ihl700 AL T(SGPT) 17 U/L 08/08/2015 Comp Metabolic Aey466 BI LI T 0.7 mg/dL 08/08/2015 Comp Metabolic Kui627 AL BUMIN 3.9 g/dL 08/08/2015 Comp Metabolic Uvh199 TP RO 6.2 g/dL 08/08/2015 Comp Metabolic Ozq285 GL OB 2.3 g/dL 08/08/2015 Comp Metabolic Fmu669 A/ G Ratio 1.7 Ratio 08/08/2015 Comp Metabolic Yhh634 Os mo 282 mOsmo 08/08/2015 Tsh Ord6 hTSH II 3.19 uIU/mL 08/08/2015 %Hba1C Lfc362 % HbA1c 89251-4 5.7 % 08/08/2015 %Hba1C Ome543 Gluc Ave 117 mg/dL 08/08/2015 Cbc With [...] 31.4 pg 08/08/2015 Cbc With Differential Ord2 [place]% 10.9 % 08/08/2015 Cbc With Differential Ord2 [...] 1.51 K/ul 08/08/2015 Cbc With Differential Ord2 [place] ABS# 0.6 K/ul 08/08/2015 Cbc With Differential [...] nourished 08/25/2017 None Full Exam - General 1994 Eyes conjunctiva/eyelids Overall: conjunctiva clear 08/25/2017 None [...] accomodation 04/20/2017 None Full Exam - General 1994 [...] CPT-4: J3301 08/28/2018 DRAIN/INJECT JOINT/B URSA CPT-4: 60601 08/28/2018 TRIAMCINOLONE ACET I [place] NOS CPT-4: J3301 04/26/2018 DRAIN/INJECT JOINT/B URSA CPT-4: 04/26/2018 DRAIN/INJECT JOINT/B URSA CPT-4: 23403 08/25/2017 PPPS, SUBSEQ VISIT CPT- 4: G0439 05/30/2017 ADMIN INFLUENZA VIRU S VAC CPT-4: G0008 12/21/2016 FLU VACC PRSV FREE I NC ANTIG CPT-4: 29546 12/21/2016 PPPS, SUBSEQ VISIT CPT- 4: G0439 05/21/2016 TRIAMCINOLONE ACET I [place] NOS CPT-4: J3301 04/21/2016 THER/PROPH/DIAG INJ SC/IM CPT-4: 14101 04/21/2016 DRAIN/INJECT JOINT/B URSA CPT-4: 77802 11/13/2015 PNEUMOCOCCAL VACC [address]: 80946819 CPT-4: 82243 11/13/2015 ADMIN PNEUMOCOCCAL V ACCINE SNOMED CT: 29914440 CPT-4: G0009 11/13/2015 ADMIN INFLUENZA VIRU S VAC CPT-4: G0008 11/11/2015 FLU VACC 4 AZUL 3 YRS PLUS IM SNOMED CT: 00852277 CPT-4: 81629 11/11/2015 Vital Signs Date Vital 09/06/2018 Blood Pressure 1: 130/78 Code: 8480-6 BMI: 25.2 Code: 59749-8 Heart Rate 1: 70 bpm Height: 5'7" SpO2: 98% Weight: 161 lbs 08/28/2018 Blood Pressure 1: 126/70 Code: 8480-6 BMI: 25.5 Code: 75668-0 Heart Rate 1: 62 bpm Height: 5'7" SpO2: 97% Weight: 163 lbs 05/22/2018 Blood Pressure 1: 130/72 Code: 8480-6 BMI: 25.5 Code: 42129-1 Heart Rate 1: 84 bpm Height: 5'7" SpO2: 96% Weight: 163 lbs 04/26/2018 Blood Pressure 1: 118/56 Code: 8480-6 BMI: 25.5 Code: 88680-7 Heart Rate 1: 60 bpm Height: 5'7" SpO2: 96% Weight: 163 lbs 12/21/2017 Blood Pressure 1: 132/56 Code: 8480-6 BMI: 25.7 Code: 94145-6 Heart Rate 1: 58 bpm Height: 5'7" SpO2: 93% Weight: 164 lbs 08/25/2017 Blood Pressure 1: 126/74 Code: 8480-6 BMI: 26.2 Code: 40047-5 Heart Rate 1: 70 bpm Height: 5'7" SpO2: 94% Weight: 167 lbs 05/30/2017 Blood Pressure 1: 120/66 Code: 8480-6 BMI: 26.6 Code: 07453-4 Heart Rate 1: 66 bpm Height: 5'7" SpO2: 95% Waist Measure (cm): 97 cm Weight: 170 lbs 04/20/2017 Blood Pressure 1: 138/78 Code: 8480-6 BMI: 26.6 Code: 86411-4 Heart Rate 1: 86 bpm Height: 5'7" SpO2: 96% Weight: 170 lbs 01/21/2017 Blood Pressure 1: 136/70 Code: 8480-6 BMI: 26.3 Code: 58229-9 Heart Rate 1: 79 bpm Height: 5'7" SpO2: 95% Weight: 168 lbs 10/22/2016 Blood Pressure 1: 134/72 Code: 8480-6 BMI: 26.3 Code: 19022-9 Heart Rate 1: 70 bpm Height: 5'7" SpO2: 95% Weight: 168 lbs 10/04/2016 Blood Pressure 1: 142/80 Code: 8480-6 BMI: 26.6 Code: 82631-0 Heart Rate 1: 72 bpm Height: 5'7" SpO2: 93% Weight: 170 lbs 06/18/2016 Blood Pressure 1: 132/76 Code: 8480-6 BMI: 26.2 Code: 65544-6 Heart Rate 1: 65 bpm Height: 5'7" SpO2: 95% Weight: 167 lbs 8 oz 05/21/2016 Blood Pressure 1: 126/76 Code: 8480-6 BMI: 26.0 Code: 58504-9 Heart Rate 1: 72 bpm Height: 5'7" SpO2: 98% Weight: 166 lbs 04/29/2016 Blood Pressure 1: 128/70 Code: 8480-6 BMI: 25.7 Code: 70172-9 Heart Rate 1: 67 bpm Height: 5'7" SpO2: 97% Temperature: 36.3 (C ) / 97.4 (F) Weight: 164 lbs 04/21/2016 Blood Pressure 1: 130/62 Code: 8480-6 BMI: 26.3 Code: 95466-0 Heart Rate 1: 74 bpm Height: 5'7" SpO2: 96% Temperature: 37.0 (C ) / 98.6 (F) Weight: 168 lbs 02/20/2016 Blood Pressure 1: 120/64 Code: 8480-6 BMI: 26.2 Code: 78096-9 Heart Rate 1: 65 bpm Height: 5'7" SpO2: 94% Weight: 167 lbs 01/01/2016 Blood Pressure 1: 106/60 Code: 8480-6 BMI: 25.7 Code: 83486-0 Heart Rate 1: 73 bpm Height: 5'7" SpO2: 98% Weight: 164 lbs 11/13/2015 Blood Pressure 1: 122/86 Code: 8480-6 BMI: 25.8 Code: 24074-0 Heart Rate 1: 80 bpm Height: 5'7" SpO2: 92% Weight: 165 lbs 11/07/2015 Blood Pressure 1: 118/64 Code: 8480-6 BMI: 25.8 Code: 57160-2 Heart Rate 1: 66 bpm Height: 5'7" SpO2: 95% Weight: 165 lbs 08/07/2015 Blood Pressure 1: 122/80 Code: 8480-6 BMI: 24.4 Code: 91366-8 Heart Rate 1: 74 bpm Height: 5'7" [...] Encounters Encounter Performer Loca tion Codes Date 01547 EST. PATIENT, LEVEL III Diagnosis: Other urticaria[ICD10: L50.8] Diagnosis: Rash and other nonspecific skin eruption[ICD10: R21] Lakeisha Hoskins MD, [facility] CPT-4: 54343 09/06/2018 55919 EST. PATIENT, LEVEL III Diagnosis: Type 2 diabetes mellitus without complications[ICD10: E11.9] Diagnosis: Essential (primary) hypertension[ICD10: I10] Diagnosis: Pain in right knee[ICD10: M25.561] Diagnosis: Primary generalized (osteo)arthritis[ICD10: M15.0] Lakeisha Hoskins MD, [facility] CPT-4: 49780 08/28/2018 ([id number]) 86716 EST. P ATIENT, LEVEL III Diagnosis: Pain in left hip[ICD10: M25.552] Diagnosis: Pain in left shoulder[ICD10: M25.512] Nancy Hoskins MD, [facility] CPT-4: 02083 05/22/2018 52938 EST. PATIENT, LEVEL III Diagnosis: Essential (primary) hypertension[ICD10: I10] Diagnosis: Pain in right knee[ICD10: M25.561] Diagnosis: Pain in left shoulder[ICD10: M25.512] Lakeisha Hoskins MD, [facility] CPT- 4: 10045 04/26/2018 23283 EST. PATIENT, LEVEL IV Diagnosis: Type 2 diabetes mellitus without complications[ICD10: E11.9] Diagnosis: Essential (primary) hypertension[ICD10: I10] Diagnosis: Pain in right knee[ICD10: M25.561] Lakeisha Hoskins MD, [facility] CPT-4: 84889 12/21/2017 39712 EST. PATIENT, LEVEL IV Diagnosis: Type 2 diabetes mellitus without complications[ICD10: E11.9] Diagnosis: Essential (primary) hypertension[ICD10: I10] Diagnosis: Pain in right knee[ICD10: M25.561] Lakeisha Hoskins MD, [facility] CPT-4: 70411 08/25/2017 85516 EST. PATIENT, LEVEL IV Diagnosis: Type 2 diabetes mellitus without complications[ICD10: E11.9] Diagnosis: Essential (primary) hypertension[ICD10: I10] Lakeisha Hoskins MD, [facility] CPT-4: 36305 04/20/2017 ([id number]) 24858 EST. P ATIENT, LEVEL III Diagnosis: Essential (primary) hypertension[ICD10: I10] Diagnosis: Obstructive sleep apnea (adult) (pediatric)[ICD10: G47.33] Nancy Hoskins MD, [facility] CPT-4: 87526 01/21/2017 ([id number]) 57887 EST. P ATIENT, LEVEL IV Diagnosis: Essential (primary) hypertension[ICD10: I10] Diagnosis: Type 2 diabetes mellitus without complications[ICD10: E11.9] Diagnosis: Obstructive sleep apnea (adult) (pediatric)[ICD10: G47.33] Nancy Hosknis MD, [facility] CPT-4: 26514 10/22/2016 ([id number]) 97375 EST. P ATIENT, LEVEL III Diagnosis: Localized edema[ICD10: R60.0] Diagnosis: Rash and other nonspecific skin eruption[ICD10: R21] Nancy Hoskins MD, [facility] CPT-4: 98489 10/04/2016 ([id number]) 62812 EST. P ATIENT, LEVEL IV Diagnosis: Essential (primary) hypertension[ICD10: I10] Diagnosis: Type 2 diabetes mellitus without complications[ICD10: E11.9] Diagnosis: Mixed hyperlipidemia[ICD10: E78.2] Nancy Hoskins MD, [facility] CPT-4: 66241 06/18/2016 ([id number]) 73105 EST. P ATIENT, LEVEL III Diagnosis: Cough[ICD10: R05] Diagnosis: Acute bronchitis, unspecified[ICD10: J20.9] Nancy Hoskins MD, [facility] CPT-4: 77981 04/29/2016 49766 EST. PATIENT, LEVEL IV Diagnosis: Other acute sinusitis[ICD10: J01.80] Diagnosis: Other allergic rhinitis[ICD10: J30.89] Lakeisha Hoskins MD, [facility] CPT-4: 00745 04/21/2016 ([id number]) 22682 EST. P ATIENT, LEVEL IV Diagnosis: Essential (primary) hypertension[ICD10: I10] Diagnosis: Type 2 diabetes mellitus without complications[ICD10: E11.9] Diagnosis: Mixed hyperlipidemia[ICD10: E78.2] Diagnosis: Primary generalized (osteo)arthritis[ICD10: M15.0] Nancy Hoskins MD, [facility] CPT-4: 44134 02/20/2016 ([id number]) 70067 EST. P ATIENT, LEVEL IV Diagnosis: Cough[ICD10: R05] Diagnosis: Acute bronchitis due to Hemophilus influenzae[ICD10: J20.1] Diagnosis: Type 2 diabetes mellitus without complications[ICD10: E11.9] Diagnosis: Essential (primary) hypertension[ICD10: I10] Charlene Hoskins MD, [facility] CPT-4: 57447 01/01/2016 ([id number]) 67991 EST. P ATIENT, LEVEL IV Diagnosis: Essential (primary) hypertension[ICD10: I10] Diagnosis: Mixed hyperlipidemia[ICD10: E78.2] Diagnosis: Type 2 diabetes mellitus without complications[ICD10: E11.9] Nancy Hoskins MD, [facility] CPT-4: 61448 11/07/2015 OFFICE VISIT, NEW - LEVEL 4 Diagnosis: Type 2 diabetes mellitus without complications[ICD10: E11.9] Diagnosis: Essential (primary) hypertension[ICD10: I10] Diagnosis: Mixed hyperlipidemia[ICD10: E78.2] Diagnosis: Elevated prostate specific antigen [PSA][ICD10: R97.2] Nancy Hoskins MD, [facility] CPT-4: 17524 08/07/2015 Plan of Care Planned Activity Notes [...] prednisone taper. 09/06/2018 Appointment: Lakeisha Putnam WPtel: [address] [place], [place] [id number] (30 min) [facility] 09/06/2018 Patient Education: Patient Medication Summary [...] glucose control. 08/28/2018 Appointment: Lakeisha Putnam WPtel: [phone] (30 min) Complex 08/28/2018 Patient Education: Patient Medication Summary Completed 08/28/2018 Patient Education: Diabetes Completed 08/28/2018 Appointment: Lakeisha Putnam WPtel: [address] [place] [phone] (15 min) Moderate 08/21/2018 Visit Plan: Left shoulder pain -sta rted six weeks ago after a fall -will get xrays today and proceed as indicated -okay to take tylenol as needed for pain Left hip pain -also started after fall -xray hip today as well 05/22/2018 Appointment: Nancy Tavares WPtel: [phone] [place] (30 min) Complex 05/22/2018 Patient Education: Patient [...] of injection. 04/26/2018 Appointment: Lakeisha Putnam WPtel: [facility] [place] (30 min) Complex 04/26/2018 Patient Education: Patient [...] improve. 12/21/2017 [facility]ment[phone] [phone] (15 min) Moderate 12/21/2017 Patient Education: [...] injection. 08/25/2017 Appointment: Lake[facility] Putnam [facility]el[facility] [email or web address] (15 min) Moderate 08/25/2017 Patient Education: Patient [...] Summary Completed 05/30/2017 Appointment: Lakeisha Putnam WPtel: [facility] [place] [address] - Annual Wellness Visit 05/27/2017 Appointment: Nancy Tavares WPtel: [address] [place] [phone] [place] (30 min) Complex 04/22/2017 Visit Plan: Hypertension [...] less controlled. 04/20/2017 Appointment: Lakeisha Putnam WPtel: [facility] [[email or web address] (30 min) Complex 04/20/2017 Patient Education: Patient [...] improved sleep, etc. Will fax note to [facility]. 01/21/2017 Appointment: Nancy Tavares WPtel: [phone] [phone] (30 min) Complex 01/21/2017 Appointment: Nancy Tavares WPtel: [phone] [phone] (30 min) Complex 01/21/2017 Patient Education: Patient [...] doing well-due for a new machine-will call [facility] to see what we need to do to get him a new machine. 10/22/2016 Appointment: Nancy Tavares WPtel: [phone] [phone] (30 min) Complex 10/22/2016 Patient Education: Patient [...] of plan. 10/04/2016 Appointment: Nancy Tavares WPtel: [facility] [address] (15 min) Moderate 10/04/2016 Patient Education: Patient [...] me dications. 06/18/2016 Appointment: Nancy Tavares WPtel: [facility] [address] (15 min) Moderate 06/18/2016 Patient Education: Patient [...] acutely worsen. 04/29/2016 Appointment: Nancy Tavares WPtel: [address] [place], [place] [phone] (15 min) Moderate 04/29/2016 Patient Education: Patient Medication Summary Completed 04/29/2016 Care Plan: CHEST X-RAY 2VW FRONTAL&LATL LOINC : 23709-3 Pending 04/29/2016 Visit Plan: Sinusitis - Pt [...] allergy spray. 04/21/2016 Appointment: Lakeisha Putnam WPtel: [address] [place] [id number] (15 min) Moderate 04/21/2016 Patient Education: Patient [...] provided 02/20/2016 Appointment: Nancy Tavares WPtel: [phone] [phone] (30 min) Complex 02/20/2016 Patient Education: Patient [...] less controlled. 01/01/2016 Appointment: [phone] (15 min) Moderate 01/01/2016 Patient Education: Patient Medication Summary Completed 01/01/2016 Visit Plan: Joint Injection - Pt wa s given post - injection instructions. The pt has been advised to use anti-inflammatories post injection today, ice to the injected site, call if redness, warmth, or increased pain occurs at the site of injection. 11/13/2015 Visit Plan: Joint Injection - Pt wa s given post - injection instructions. The pt has been advised to use anti-inflammatories post injection today, ice to the injected site, call if redness, warmth, or increased pain occurs at the site of injection. 11/13/2015 Visit Plan: Joint Injection - Pt wa s given post - injection instructions. The pt has been advised to use anti-inflammatories post injection today, ice to the injected site, call if redness, warmth, or increased pain occurs at the site of injection. 11/13/2015 Appointment: [facility]el[phone] [phone] (15 min) Moderate 11/13/2015 Patient Education: Patient [...] response to medications. DM-too early for Hgb [id number] to have done next week 11/07/2015 Appointment: [facility]el[facility] [phone] [phone] (15 min) Moderate 11/07/2015 Patient Education: [...] results 08/07/2015 Appointment: [facility]el[facility] [phone] [phone] New Patient 08/07/2015 Patient Education: Patient [...] doing well-due for a new machine-will call [facility] to see what we need to do to get him a new machine. . Hypertension - wel l controlled - [...] to medications. Generalized OA-handicap placard provided . Rash - The patient was instructed [...] pt also given RX for prednisone taper. COMPRESSION STOCKING S KETOCONAZOLE SHAMPOO THREE TIMES WEEKLY CONTINUE STEROID CREAM ORDERED BY EMPLOYMENT DIRECTOR CULTURE RASH LEFT AXILLA . Edema - [...] response to medications. DM-too early for Hgb [id number] to have done next week . Sinusitis - Pt has acute infection [...] Diabetes Mellitus - controlled - per r ent FSBS reports. I have recommended for the [...] improved sleep, etc. Will fax note to [facility]. . Hypertension - con tinue with [...]
--- OUTSIDE RECORDS SUMMARY | 2019-04-11 03:28 | XMS REPORT | CCD ---
Author Author Cesar Tavares Organization Charlene Hoskins MD, [facility] Address [address] [place] [address] Phone Care Team Providers Care Medical Staff Director Name Role Phone PP Unavailable CCM Unavailable Summary Purpose Interface Exchange Insurance Providers Payer name Policy type / Coverage type Covered democrat ID Effective Begin Date Effective End Date WPS Medicare Part B Medicare Part B [id number] Unknown [employer] Part B [id number] Un known Family history Brother Diagnosis Age At Onset Leukemia Unknown Sister Diagnosis Age At Onset Colon cancer Unknown Father Diagnosis Age At Onset Diabetes mellitus Type 2 Unknown Skin cancer Unknown Brother Diagnosis Age At Onset Asthma Unknown Brother Diagnosis Age At Onset Asthma Unknown Social History Social History Element Codes Description Effective Dates Marital status Unknown M laura Canales 08/07/2015 Number of children Unknown 3 08/07/2015 Employment Unknown Retir ed 08/07/[address]: 7064246 Quit over 10 years ago 1970 08/07/[address]: 732569888 Never drinks alcohol 08/07/2015 Allergies, Adverse Reactions, Alerts Substance Reaction Codes Entered Date Inactivated Date Status Penicillin Unknown 08/07/2015 No In active Date Active Past Medical History Illness Codes Condition Status Onset Date Resolved Date Anemia, unspecified ICD- 9: 285.9 ICD-10: D64.9 [...] ICD-9: 782.3 ICD-10: R60.0 Active 10/04/2016 Unknown Rash and other nonsp ecific skin eruption ICD-9: 782.1 ICD-10: R21 Active 10/04/2016 Unknown Mixed hyperlipidemia ICD-9: 272.2 [...] Condition Codes Effectiv e Dates Condition Status Anemia, unspecified ICD- 9: 285.9 ICD-10: D64.9 [...] edema ICD-9: 782.3 ICD-10: R60.0 10/04/2016 Active Rash and other nonsp ecific skin eruption ICD-9: 782.1 ICD-10: R21 10/04/2016 Active Mixed hyperlipidemia ICD-9: 272.2 ICD-10: [...] Date Stop Date Sta tus Fill Instructions Kenalog 40 mg/mL maggie pension for injection RxNorm: 0699838 1 Milliliter(s) Inj 08/28/2018 08/28/2018 In active losartan 50 mg tablet RxNorm: 066956 1 Tablet(s) PO daily TAKE 1 TABLET BY MO UTH ONCE DAILY 07/25/2018 01/20/2019 Active meloxicam 7.5 mg tablet RxNorm: 859568 TAKE 1 TABLET BY MOUTH ONCE DAILY 06/01/2018 No Stop Date Active Advair Diskus 250 mc g-50 mcg/dose powder for inhalation RxNorm: 5049757 INHALE 1 DOSE BY MOUTH TWICE DAILY 05/22/2018 No Stop Date Active fluticasone propiona te 50 mcg/actuation nasal spray,suspension RxNorm: 1868270 USE 2 SPRAY(S) IN EACH NOSTRIL ONCE DAILY 05/17/2018 No Stop Date Active simvastatin 20 mg ta blet RxNorm: 654434 TAKE 1 TABLET BY MOUT H ONCE DAILY 05/16/2018 No Stop Date Active Kenalog 40 mg/mL maggie pension for injection RxNorm: 2833950 1 Milliliter(s) Inj 04/26/2018 04/26/2018 In active Kenalog 40 mg/mL maggie pension for injection RxNorm: 0032083 1 Milliliter(s) Inj 04/26/2018 04/26/2018 In active losartan 50 mg tablet RxNorm: 093648 TAKE 1 TABLET BY MOUTH ONCE DAILY 04/24/2018 07/24/2018 In active fluticasone propiona te 50 mcg/actuation nasal spray,suspension RxNorm: 6584624 USE 2 SPRAY(S) IN EACH NOSTRIL ONCE DAILY 03/27/2018 05/16/2018 Inactive Advair Diskus 250 mc g-50 mcg/dose powder for inhalation RxNorm: 5899748 INHALE 1 DOSE BY MOUTH TWICE DAILY 03/21/2018 05/21/2018 Inactive montelukast 10 mg ta blet RxNorm: 843792 TAKE ONE TABLET BY MO UTH ONCE DAILY 03/15/2018 No Stop Date Active Advair Diskus 250 mc g-50 mcg/dose powder for inhalation RxNorm: 6331537 INHALE 1 DOSE BY MOUTH TWICE DAILY 02/20/2018 03/20/2018 Inactive fluticasone 50 mcg/a ctuation nasal spray,suspension RxNorm: 6885803 USE 2 SPRAY(S) IN EACH NOSTRIL ONCE DAILY 02/08/2018 03/26/2018 Inactive metformin 500 mg tablet RxNorm: 284941 TAKE 1 TABLET BY MOUTH ONCE DAILY 01/16/2018 No Stop Date Active Advair Diskus 250 mc g-50 mcg/dose powder for inhalation RxNorm: 0250157 INHALE 1 DOSE BY MOUTH TWICE DAILY 12/19/2017 02/19/2018 Inactive meloxicam 7.5 mg tablet RxNorm: 784002 TAKE 1 TABLET BY MOUTH ONCE DAILY 12/01/2017 05/31/2018 In active simvastatin 20 mg ta blet RxNorm: 262252 TAKE 1 TABLET BY MOUT H ONCE DAILY 11/14/2017 05/15/2018 In active losartan 50 mg tablet RxNorm: 529427 TAKE ONE TABLET BY MOUTH ONCE DAILY 10/27/2017 04/23/2018 In active Advair Diskus 250 mc g-50 mcg/dose powder for inhalation RxNorm: 7750392 INHALE 1 DOSE BY MOUTH TWICE DAILY 10/19/2017 12/18/2017 Inactive fluticasone 50 mcg/a ctuation nasal spray,suspension RxNorm: 6866307 USE TWO SPRAY(S) IN EACH NOSTRIL ONCE DAILY 10/19/2017 02/07/2018 Inactive Kenalog 40 mg/mL maggie pension for injection RxNorm: 7089793 1 Milliliter(s) Inj 08/25/2017 08/25/2017 In active meloxicam 7.5 mg tablet RxNorm: 259519 TAKE ONE TABLET BY MOUTH ONCE DAILY 06/06/2017 11/30/2017 In active simvastatin 20 mg ta blet RxNorm: 849189 TAKE ONE TABLET BY MO UTH ONCE DAILY 05/17/2017 11/13/2017 In active metformin 500 mg tablet RxNorm: 608130 TAKE ONE TABLET BY MOUTH ONCE DAILY 05/05/2017 01/15/2018 In active Advair Diskus 250 mc g-50 mcg/dose powder for inhalation RxNorm: 4006478 INHALE ONE DOSE BY MOUTH TWICE DAILY 04/19/2017 10/18/2017 Inactive Tamiflu 75 mg capsule RxNorm: 052298 1 Capsule(s) PO daily 03/25/2017 03/24/2017 Inactive Tamiflu 75 mg capsule RxNorm: 360392 1 Capsule(s) PO daily 03/25/2017 03/31/2017 Inactive montelukast 10 mg ta blet RxNorm: 314482 TAKE ONE TABLET BY MO UT ONCE DAILY 03/21/2017 03/14/2018 In active losartan 50 mg tablet RxNorm: 873390 TAKE ONE TABLET BY MOUTH ONCE DAILY 01/27/2017 10/26/2017 In active fluticasone 50 mcg/a ctuation nasal spray,suspension RxNorm: 5752057 USE TWO SPRAY(S) IN EACH NOSTRIL ONCE DAILY 01/17/2017 10/18/2017 Inactive meloxicam 7.5 mg tablet RxNorm: 323970 TAKE ONE TABLET BY MOUTH ONCE DAILY 12/06/2016 06/03/2017 In active metformin 500 mg tablet RxNorm: 375506 Tablet(s) TAKE ONE TABLET BY MOUTH TWICE DAILY 11/30/2016 11/24/2017 Inactive simvastatin 20 mg ta blet RxNorm: 644393 TAKE ONE TABLET BY [facility] ONCE DAILY 11/15/2016 05/13/2017 In active Advair Diskus 250 mc g-50 mcg/dose powder for inhalation RxNorm: 1054169 INHALE ONE PUFF BY MOUTH TWICE DAILY 10/22/2016 04/18/2017 Inactive ketoconazole 2 % [facility] RxNorm: 751674 1 Application TOP TIW 10/04/2016 10/17/2016 Inactive fluticasone 50 mcg/a ctuation nasal spray,suspension RxNorm: 4735535 USE TWO SPRAY(S) IN EACH NOSTRIL ONCE DAILY 09/21/2016 11/19/2016 Inactive montelukast 10 mg ta blet RxNorm: 406813 TAKE ONE TABLET BY MO UTH ONCE DAILY 09/21/2016 03/19/2017 In active losartan 50 mg tablet RxNorm: 734428 TAKE ONE TABLET BY MOUTH ONCE DAILY 08/02/2016 01/26/2017 In active metformin 500 mg tablet RxNorm: 020274 TAKE ONE TABLET BY MOUTH TWICE DAILY 07/22/2016 10/19/2016 In active furosemide 20 mg tablet RxNorm: 139056 1 Tablet(s) PO daily as needed for swell ing 07/21/2016 04/18/2018 Inactive meloxicam 7.5 mg tablet RxNorm: 502617 TAKE ONE TABLET BY MOUTH ONCE DAILY 06/08/2016 12/04/2016 In active cefdinir 300 mg capsule RxNorm: 882663 1 Capsule(s) PO BID 04/29/2016 05/05/2016 Inactive prednisone 20 mg tablet RxNorm: 548168 1 Tablet(s) PO BID 04/29/2016 05/03/2016 Inactive Zithromax Z-Sherif 250 mg tablet RxNorm: 252239 1 Tablet(s) PO UD 04/21/2016 04/28/2016 Inactive Kenalog 40 mg/mL maggie pension for injection RxNorm: 3289705 1 Milliliter(s) Inj 04/21/2016 04/21/2016 In active montelukast 10 mg ta blet RxNorm: 798020 TAKE ONE TABLET BY MO [facility] ONCE DAILY 03/22/2016 09/17/2016 In active fluticasone 50 mcg/a ctuation nasal spray,suspension RxNorm: 5321350 2 [place] NASAL daily each nare 03/15/2016 07/12/2016 Inactive qs metformin 500 mg tablet RxNorm: 773664 1 Tablet(s) PO daily 01/16/2016 2016 Inactive Patient does not need a refill- just upd ate dosing Advair Diskus 250 mc g-50 mcg/dose powder for inhalation RxNorm: 0267115 1 INH BID 01/01/2016 04/29/2016 In active Advair Diskus 250 mc g-50 mcg/dose powder for inhalation RxNorm: 6606381 1 INH daily 01/01/2016 12/31/2015 Inactive metformin 500 mg tablet RxNorm: 219709 1 Tablet(s) PO daily 01/01/2016 01/15/2016 Inactive simvastatin 40 mg ta blet RxNorm: 504318 1 Tablet(s) PO daily 01/01/2016 04/17/2018 Inactive azithromycin 250 mg tablet RxNorm: 568532 1 Tablet(s) PO take t wo pills on day #1, then one pill daily x 4 more days 01/01/2016 02/17/2016 Inactive meloxicam 7.5 mg tablet RxNorm: 946733 1 Tablet(s) PO daily 12/11/2015 06/07/2016 Inactive simvastatin 20 mg ta blet RxNorm: 396756 1 Tablet(s) PO daily 11/21/2015 12/31/2015 Inactive metformin 500 mg tablet RxNorm: 784724 1 Tablet(s) PO BID 11/21/2015 12/31/2015 Inactive Advair Diskus 250 mc g-50 mcg/dose powder for inhalation RxNorm: 5931057 1 INH BID 11/21/2015 12/31/2015 In active montelukast 10 mg ta blet RxNorm: 268984 1 Tablet(s) PO daily 09/25/2015 03/21/2016 Inactive losartan 50 mg tablet RxNorm: 800578 1 Tablet(s) PO daily 09/04/2015 08/01/2016 Inactive Restasis 0.05 % eye drops in a dropperette RxNorm: 576952 1 gtts OPH BID 08/07/2015 No Stop Date Active meloxicam 7.5 mg tablet RxNorm: 085947 1 Tablet(s) PO daily 08/07/2015 09/05/2015 Inactive Kay oral RxNorm: 981742 oral No Start Date Active finasteride 5 mg tablet RxNorm: 925287 1 Tablet(s) PO daily No Start Date Active Zyrtec 10 mg tablet RxNorm: 2762238 1 Tablet(s) PO daily No Start Date Active Co Q-10 200 mg capsule RxNorm: 572988 1 Capsule(s) PO daily No Start Date Active Calcium 500 + D (D3) oral RxNorm: 464516 oral No S tart Date Active simethicone 125 mg c apsule RxNorm: 592258 Capsule(s) PO as needed No Start Date Active Vitamin D3 1,000 uni t tablet RxNorm: 560072 1 Tablet(s) PO daily No Start Date Active omega-3 fatty acids 1,000 mg capsule RxNorm: 4 Capsule(s) PO daily No Start Date Active triamcinolone aceton chasity 0.1 % topical cream RxNorm: 0918101 1 TOP UD No Start Date Active fluticasone 50 mcg/a ctuation nasal spray,suspension RxNorm: 9075715 2 [place] NASAL daily each nare No Start Date 03/14/2016 Inactive losartan 50 mg tablet RxNorm: 389586 1 Tablet(s) PO daily No Start Date 09/03/2015 Inactive metformin 500 mg tablet RxNorm: 574012 1 Tablet(s) PO daily No Start Date 11/20/2015 Inactive simvastatin 40 mg ta blet RxNorm: 775243 1 Tablet(s) PO daily No Start Date 11/20/2015 Inactive furosemide 20 mg tablet RxNorm: 616860 1 Tablet(s) PO daily as needed No Start Date 07/20/2016 Inactive Advair Diskus 250 mc g-50 mcg/dose powder for inhalation RxNorm: 5321947 1 INH daily No Start Date 11/20/2015 Inactive Multiple Vitamin oral RxNorm: 12763 oral No Start Date 12/31/2015 Inactive montelukast 10 mg ta blet RxNorm: 745251 1 Tablet(s) PO daily No Start Date 09/24/2015 Inactive Medication Administered Medication Codes Instruc tions Start Date Status Kenalog 40 mg/mL suspension for injection RxNorm: 9740499 1Milliliter 08/28/2018 N o longer Active Kenalog 40 mg/mL suspension for injection RxNorm: 8346429 1Milliliter 04/26/2018 N o longer Active Kenalog 40 mg/mL suspension for injection RxNorm: 6609370 1Milliliter 04/26/2018 N o longer Active Kenalog 40 mg/mL suspension for injection RxNorm: 3221794 1Milliliter 08/25/2017 N o longer Active Kenalog 40 mg/mL suspension for injection RxNorm: 3506958 1Milliliter 04/21/2016 N o longer Active Immunizations Vaccine Codes Date Status SHINGARIX CVX: 121 06/13 completed Influenza CVX: 141 12/21 completed Influenza CVX: 141 12/21 completed Pneumococcal (Adult) CVX: 133 11/13/2015 completed Influenza CVX: 141 11/10 completed Pneumococcal CVX: 33 completed Zoster CVX: 121 02/14/20 13 completed Assessments Condition Codes Effectiv e Dates Anemia, unspecified ICD-10: D64.9 ICD-9: 285.9 09/01/2018 [...] immunization ICD-10: Z 23 ICD-9: V04.81 12/21/2016 Rash and other nonspecific skin eruption ICD-10: R21 ICD-9: 782.1 10/04/2016 Localized edema ICD-10: R60.0 ICD-9: 782.3 10/04/2016 [...] Visit Reason For Visit Effective Dates Notes knee pain 08/28/2018 shoulder pain 05/22/2018 shoulder [...] 32.4 pg 08/28/2018 Cbc With Differential Ord2 [place]% 10.1 % 08/28/2018 Cbc With Differential Ord2 [...] 2.05 K/ul 08/28/2018 Cbc With Differential Ord2 [place] ABS# 0.9 K/ul 08/28/2018 Cbc With Differential Ord2 Eos ABS# 0.5 K/ul 08/28/2018 Cbc With Differential Ord2 Baso ABS# 0.0 K/ul 08/28/2018 %Hba1C Wmo374 % HbA1c 01575-1 5.8 % 08/28/2018 %Hba1C Pve271 Gluc Ave 120 mg/dL 08/28/2018 Comp Metabolic Jll418 NA 141 mEq/L 08/28/2018 Comp Metabolic Mhz054 K 4.3 mEq/L 08/28/2018 Comp Metabolic Bym745 CL 105 mEq/L 08/28/2018 Comp Metabolic Cyn125 CO2 28.0 mEq/L 08/28/2018 Comp Metabolic Ssp861 AN ION GAP 12 08/28/2018 Comp Metabolic Chx496 GL UCOSE 101 mg/dL 08/28/2018 Comp Metabolic Qwo586 Cr eat 0.9 mg/dL 08/28/2018 Comp Metabolic Gos965 eG FR 89 ml/min/1.73m2 08/28 Comp Metabolic Qvw441 BUN 26 mg/dL 08/28/2018 Comp Metabolic Izq913 B/ C Ratio 29.9 Ratio 08/28/2018 Comp Metabolic Apa764 CA LCIUM 9.4 mg/dL 08/28/2018 Comp Metabolic Qjd053 AL K PHOS 60 U/L 08/28/2018 Comp Metabolic Mwj108 T(SGOT) 17 U/L 08/28/2018 Comp Metabolic Imt606 AL T(SGPT) 27 U/L 08/28/2018 Comp Metabolic Hea500 BI LI T 0.6 mg/dL 08/28/2018 Comp Metabolic Ypk474 AL BUMIN 4.2 g/dL 08/28/2018 Comp Metabolic Bmj798 TP RO 6.6 g/dL 08/28/2018 Comp Metabolic Bpj455 GL OB 2.4 g/dL 08/28/2018 Comp Metabolic Pkg166 A/ G Ratio 1.7 Ratio 08/28/2018 Comp Metabolic Tnw618 Os mo 286 mOsmo 08/28/2018 %Hba1C Gsa083 % HbA1c 79524-1 6.0 % 12/21/2017 %Hba1C Wgc553 Gluc Ave 126 mg/dL 12/21/2017 %Hba1C Dfj783 % HbA1c 82119-1 6.2 % 04/20/2017 %Hba1C Zmi909 Gluc Ave 131 mg/dL 04/20/2017 Cbc With [...] 31.8 pg 04/20/2017 Cbc With Differential Ord2 [place]% 9.3 % 04/20/2017 Cbc With Differential Ord2 [...] 1.82 K/ul 04/20/2017 Cbc With Differential Ord2 [place] ABS# 0.6 K/ul 04/20/2017 Cbc With Differential Ord2 Eos ABS# 0.2 K/ul 04/20/2017 Cbc With Differential Ord2 Baso ABS# 0.0 K/ul 04/20/2017 Comp Metabolic Cca187 NA 141 mEq/L 04/20/2017 Comp Metabolic Fqt431 K 4.5 mEq/L 04/20/2017 Comp Metabolic Ert098 CL 106 mEq/L 04/20/2017 Comp Metabolic Dfz784 CO2 27.0 mEq/L 04/20/2017 Comp Metabolic Bek979 AN ION GAP 13 04/20/2017 Comp Metabolic Mwk745 GL UCOSE 109 mg/dL 04/20/2017 Comp Metabolic Xgv612 Cr eat 1.0 mg/dL 04/20/2017 Comp Metabolic Ill004 eG FR 81 ml/min/1.73m2 04/20 Comp Metabolic Xyf791 BUN 23 mg/dL 04/20/2017 Comp Metabolic Ape695 B/ C Ratio 24.2 Ratio 04/20/2017 Comp Metabolic Wao432 CA LCIUM 9.3 mg/dL 04/20/2017 Comp Metabolic Kgm868 AL K PHOS 82 U/L 04/20/2017 Comp Metabolic Pvj979 T(SGOT) 22 U/L 04/20/2017 Comp Metabolic Dlc995 AL T(SGPT) 24 U/L 04/20/2017 Comp Metabolic Spd910 BI LI T 0.4 mg/dL 04/20/2017 Comp Metabolic Tbo195 AL BUMIN 4.3 g/dL 04/20/2017 Comp Metabolic Gda192 TP RO 6.8 g/dL 04/20/2017 Comp Metabolic Qap790 GL OB 2.5 g/dL 04/20/2017 Comp Metabolic Sol192 A/ G Ratio 1.7 Ratio 04/20/2017 Comp Metabolic Ymq867 Os mo 286 mOsmo 04/20/2017 %Hba1C Vrv384 % HbA1c 31324-5 5.8 % 10/22/2016 %Hba1C Lnm903 Gluc Ave 120 mg/dL 10/22/2016 Cbc With [...] 32.5 pg 10/22/2016 Cbc With Differential Ord2 [place]% 10.3 % 10/22/2016 Cbc With Differential Ord2 [...] 1.85 K/ul 10/22/2016 Cbc With Differential Ord2 [place] ABS# 0.8 K/ul 10/22/2016 Cbc With Differential Ord2 Eos ABS# 0.3 K/ul 10/22/2016 Cbc With Differential Ord2 Baso ABS# 0.0 K/ul 10/22/2016 Comp Metabolic Wep819 NA 141 mEq/L 10/22/2016 Comp Metabolic Giz667 K 4.4 mEq/L 10/22/2016 Comp Metabolic Nwr308 CL 105 mEq/L 10/22/2016 Comp Metabolic Kgj764 CO2 27.0 mEq/L 10/22/2016 Comp Metabolic Kkr917 AN ION GAP 13 10/22/2016 Comp Metabolic Jcr165 GL UCOSE 103 mg/dL 10/22/2016 Comp Metabolic Eep818 Cr eat 1.0 mg/dL 10/22/2016 Comp Metabolic Ksz371 eG FR 76 ml/min/1.73m2 10/22 Comp Metabolic Xge873 BUN 27 mg/dL 10/22/2016 Comp Metabolic Ild621 B/ C Ratio 27.0 Ratio 10/22/2016 Comp Metabolic Ies998 CA LCIUM 9.3 mg/dL 10/22/2016 Comp Metabolic Mrl063 AL K PHOS 72 U/L 10/22/2016 Comp Metabolic Swu152 T(SGOT) 23 U/L 10/22/2016 Comp Metabolic Obl773 AL T(SGPT) 26 U/L 10/22/2016 Comp Metabolic Kma699 BI LI T 0.4 mg/dL 10/22/2016 Comp Metabolic Jjr186 AL BUMIN 4.2 g/dL 10/22/2016 Comp Metabolic Mzb404 TP RO 6.7 g/dL 10/22/2016 Comp Metabolic Xrj583 GL OB 2.5 g/dL 10/22/2016 Comp Metabolic Lyc849 A/ G Ratio 1.6 Ratio 10/22/2016 Comp Metabolic Ezy701 Os mo 287 mOsmo 10/22/2016 Comp Metabolic Lmi953 NA 143 mEq/L 06/17/2016 Comp Metabolic Mvt973 K 4.1 mEq/L 06/17/2016 Comp Metabolic Zmo279 CL 108 mEq/L 06/17/2016 Comp Metabolic Hly554 CO2 28.0 mEq/L 06/17/2016 Comp Metabolic Fsr737 AN ION GAP 11 06/17/2016 Comp Metabolic Sxa089 GL UCOSE 106 mg/dL 06/17/2016 Comp Metabolic Ffo500 Cr eat 0.9 mg/dL 06/17/2016 Comp Metabolic Bfo276 eG FR 92 ml/min/1.73m2 06/17 Comp Metabolic Pxj437 BUN 22 mg/dL 06/17/2016 Comp Metabolic Ezo381 B/ C Ratio 25.9 Ratio 06/17/2016 Comp Metabolic Qbx703 CA LCIUM 8.8 mg/dL 06/17/2016 Comp Metabolic Dit274 AL K PHOS 55 U/L 06/17/2016 Comp Metabolic Wov132 T(SGOT) 21 U/L 06/17/2016 Comp Metabolic Hjh556 AL T(SGPT) 24 U/L 06/17/2016 Comp Metabolic Zpj947 BI LI T 0.6 mg/dL 06/17/2016 Comp Metabolic Sev375 AL BUMIN 4.0 g/dL 06/17/2016 Comp Metabolic Pzx004 TP RO 6.2 g/dL 06/17/2016 Comp Metabolic Mcj586 GL OB 2.2 g/dL 06/17/2016 Comp Metabolic Usu118 A/ G Ratio 1.8 Ratio 06/17/2016 Comp Metabolic Pir770 Os mo 289 mOsmo 06/17/2016 Lipid Ord30 CHOL 163 mg/dL 06/17/2016 Lipid Ord30 HDL 54.0 mg/dl 06/17/2016 Lipid Ord30 TRIG 133 mg/dL 06/17/2016 Lipid Ord30 LDL 82 mg/dL 06/17/2016 Lipid Ord30 C/HDL 3.0 Ratio 06/17/2016 %Hba1C Hjx019 % HbA1c 15016-1 6.0 % 06/17/2016 %Hba1C Php249 Gluc Ave 126 mg/dL 06/17/2016 Total Psa [...] 32.7 pg 06/17/2016 Cbc With Differential Ord2 [place]% 10.7 % 06/17/2016 Cbc With Differential Ord2 [...] 1.71 K/ul 06/17/2016 Cbc With Differential Ord2 [place] ABS# 0.6 K/ul 06/17/2016 Cbc With Differential Ord2 Eos ABS# 0.2 K/ul 06/17/2016 Cbc With Differential Ord2 Baso ABS# 0.0 K/ul 06/17/2016 Tsh Ord6 hTSH II 2.91 uIU/mL 06/17/2016 Tsh Ord6 hTSH II 2.45 uIU/mL 02/19/2016 %Hba1C Mpc055 % HbA1c 20988-0 5.8 % 02/19/2016 %Hba1C Ekm668 Gluc Ave 120 mg/dL 02/19/2016 Comp Metabolic Qnm639 NA 141 mEq/L 02/19/2016 Comp Metabolic Wbe488 K 4.2 mEq/L 02/19/2016 Comp Metabolic Bso084 CL 107 mEq/L 02/19/2016 Comp Metabolic Jma065 CO2 29.0 mEq/L 02/19/2016 Comp Metabolic Rvy823 AN ION GAP 9 02/19/2016 Comp Metabolic Vom529 GL UCOSE 106 mg/dL 02/19/2016 Comp Metabolic Fcp426 Cr eat 0.9 mg/dL 02/19/2016 Comp Metabolic Iqk606 eG FR 90 ml/min/1.73m2 02/18 Comp Metabolic Kyy360 BUN 24 mg/dL 02/19/2016 Comp Metabolic Jeh727 B/ C Ratio 27.6 Ratio 02/19/2016 Comp Metabolic Mla510 CA LCIUM 9.1 mg/dL 02/19/2016 Comp Metabolic Lua484 AL K PHOS 67 U/L 02/19/2016 Comp Metabolic Udm034 T(SGOT) 25 U/L 02/19/2016 Comp Metabolic Jas596 AL T(SGPT) 31 U/L 02/19/2016 Comp Metabolic Mti244 BI LI T 0.6 mg/dL 02/19/2016 Comp Metabolic Hro020 AL BUMIN 4.1 g/dL 02/19/2016 Comp Metabolic Ycv287 TP RO 6.5 g/dL 02/19/2016 Comp Metabolic Vzl213 GL OB 2.4 g/dL 02/19/2016 Comp Metabolic Qmk740 A/ G Ratio 1.7 Ratio 02/19/2016 Comp Metabolic Efs523 Os mo 286 mOsmo 02/19/2016 Cbc With [...] 31.7 pg 02/19/2016 Cbc With Differential Ord2 [place]% 10.5 % 02/19/2016 Cbc With Differential Ord2 [...] 1.59 K/ul 02/19/2016 Cbc With Differential Ord2 [place] ABS# 0.6 K/ul 02/19/2016 Cbc With Differential Ord2 Eos ABS# 0.3 K/ul 02/19/2016 Cbc With Differential Ord2 Baso ABS# 0.0 K/ul 02/19/2016 Lipid Ord30 CHOL 174 mg/dL 02/19/2016 Lipid Ord30 HDL 54.0 mg/dl 02/19/2016 Lipid Ord30 TRIG 110 mg/dL 02/19/2016 Lipid Ord30 LDL 98 mg/dL 02/19/2016 Lipid Ord30 C/HDL 3.2 Ratio 02/19/2016 %Hba1C Jgv821 % HbA1c 47527-3 6.0 % 11/11/2015 %Hba1C Enj966 Gluc Ave 126 mg/dL 11/11/2015 %Hba1C Lzs664 % HbA1c 55465-2 6.0 % 11/07/2015 %Hba1C Tdk884 Gluc Ave 126 mg/dL 11/07/2015 Cbc With [...] 32.0 pg 11/06/2015 Cbc With Differential Ord2 [place]% 9.5 % 11/06/2015 Cbc With Differential Ord2 [...] 1.79 K/ul 11/06/2015 Cbc With Differential Ord2 [place] ABS# 0.6 K/ul 11/06/2015 Cbc With Differential Ord2 Eos ABS# 0.3 K/ul 11/06/2015 Cbc With Differential Ord2 Baso ABS# 0.0 K/ul 11/06/2015 Comp Metabolic Ncu680 NA 141 mEq/L 11/06/2015 Comp Metabolic Bhu708 K 4.3 mEq/L 11/06/2015 Comp Metabolic Noe812 CL 107 mEq/L 11/06/2015 Comp Metabolic Mdz628 CO2 28.0 mEq/L 11/06/2015 Comp Metabolic Osk527 AN ION GAP 10 11/06/2015 Comp Metabolic Rzj833 GL UCOSE 117 mg/dL 11/06/2015 Comp Metabolic Hex696 Cr eat 0.9 mg/dL 11/06/2015 Comp Metabolic Pmz325 eG FR 88 ml/min/1.73m2 11/05 Comp Metabolic Dwz839 BUN 22 mg/dL 11/06/2015 Comp Metabolic Ijl736 B/ C Ratio 25.0 Ratio 11/06/2015 Comp Metabolic Pgx231 CA LCIUM 9.1 mg/dL 11/06/2015 Comp Metabolic Btj368 AL K PHOS 59 U/L 11/06/2015 Comp Metabolic Mha035 T(SGOT) 23 U/L 11/06/2015 Comp Metabolic Kjn492 AL T(SGPT) 26 U/L 11/06/2015 Comp Metabolic Qki204 BI LI T 0.6 mg/dL 11/06/2015 Comp Metabolic Yrk800 AL BUMIN 4.0 g/dL 11/06/2015 Comp Metabolic Mng113 TP RO 6.4 g/dL 11/06/2015 Comp Metabolic Dgn955 GL OB 2.4 g/dL 11/06/2015 Comp Metabolic Ikl082 A/ G Ratio 1.7 Ratio 11/06/2015 Comp Metabolic Etp615 Os mo 286 mOsmo 11/06/2015 Tsh Ord6 hTSH II 2.59 uIU/mL 11/06/2015 Lipid Ord30 CHOL 159 mg/dL 11/06/2015 Lipid Ord30 HDL 42.0 mg/dl 11/06/2015 Lipid Ord30 TRIG 129 mg/dL 11/06/2015 Lipid Ord30 LDL 91 mg/dL 11/06/2015 Lipid Ord30 C/HDL 3.8 Ratio 11/06/2015 Comp Metabolic Ufp354 NA 140 mEq/L 08/08/2015 Comp Metabolic Qvy905 K 4.0 mEq/L 08/08/2015 Comp Metabolic Pgi852 CL 108 mEq/L 08/08/2015 Comp Metabolic Zqd341 CO2 25.0 mEq/L 08/08/2015 Comp Metabolic Rcl544 AN ION GAP 11 08/08/2015 Comp Metabolic Wvw323 GL UCOSE 100 mg/dL 08/08/2015 Comp Metabolic Rze863 Cr eat 0.9 mg/dL 08/08/2015 Comp Metabolic Ziq420 eG FR 82 ml/min/1.73m2 08/07 Comp Metabolic Uap978 BUN 19 mg/dL 08/08/2015 Comp Metabolic Zgp537 B/ C Ratio 20.2 Ratio 08/08/2015 Comp Metabolic Aeu499 CA LCIUM 8.5 mg/dL 08/08/2015 Comp Metabolic Nyi370 AL K PHOS 56 U/L 08/08/2015 Comp Metabolic Gcl044 T(SGOT) 18 U/L 08/08/2015 Comp Metabolic Wht332 AL T(SGPT) 17 U/L 08/08/2015 Comp Metabolic Qkf724 BI LI T 0.7 mg/dL 08/08/2015 Comp Metabolic Kks200 AL BUMIN 3.9 g/dL 08/08/2015 Comp Metabolic Jxi733 TP RO 6.2 g/dL 08/08/2015 Comp Metabolic Qfx974 GL OB 2.3 g/dL 08/08/2015 Comp Metabolic Nug562 A/ G Ratio 1.7 Ratio 08/08/2015 Comp Metabolic Ozq696 Os mo 282 mOsmo 08/08/2015 Tsh Ord6 hTSH II 3.19 uIU/mL 08/08/2015 %Hba1C Ues244 % HbA1c 87688-6 5.7 % 08/08/2015 %Hba1C Rts779 Gluc Ave 117 mg/dL 08/08/2015 Cbc With [...] 31.4 pg 08/08/2015 Cbc With Differential Ord2 [place]% 10.9 % 08/08/2015 Cbc With Differential Ord2 [...] 1.51 K/ul 08/08/2015 Cbc With Differential Ord2 [place] ABS# 0.6 K/ul 08/08/2015 Cbc With Differential Ord2 Eos ABS# 0.2 K/ul 08/08/2015 Cbc With Differential Ord2 Baso ABS# 0.0 K/ul 08/08/2015 Lipid Ord30 CHOL 127 mg/dL 08/08/2015 Lipid Ord30 HDL 34.0 mg/dl 08/08/2015 Lipid Ord30 TRIG 93 mg/dL 08/08/2015 Lipid Ord30 LDL 74 mg/dL 08/08/2015 Lipid Ord30 C/HDL 3.7 Ratio 08/08/2015 Review of Systems System Result Effective Dates Constitutional No recent illness 08/28/2018 Constitutional No [...] Result Effective Dates Notes Full Exam - Orthopedics Constitutional general appearance [...] CPT-4: J3301 08/28/2018 DRAIN/INJECT JOINT/B URSA CPT-4: 23444 08/28/2018 TRIAMCINOLONE ACET I [place] NOS CPT-4: J3301 04/26/2018 DRAIN/INJECT JOINT/B URSA CPT-4: 04/26/2018 DRAIN/INJECT JOINT/B URSA CPT-4: 94091 08/25/2017 PPPS, SUBSEQ VISIT CPT- 4: G0439 05/30/2017 ADMIN INFLUENZA VIRU S VAC CPT-4: G0008 12/21/2016 FLU VACC PRSV FREE I NC ANTIG CPT-4: 11818 12/21/2016 PPPS, SUBSEQ VISIT CPT- 4: G0439 05/21/2016 TRIAMCINOLONE ACET I [place] NOS CPT-4: J3301 04/21/2016 THER/PROPH/DIAG INJ SC/IM CPT-4: 96203 04/21/2016 DRAIN/INJECT JOINT/B URSA CPT-4: 77066 11/13/2015 PNEUMOCOCCAL VACC [address]: 04999149 CPT-4: 99873 11/13/2015 ADMIN PNEUMOCOCCAL V ACCINE SNOMED CT: 98936269 CPT-4: G0009 11/13/2015 ADMIN INFLUENZA VIRU S VAC CPT-4: G0008 11/11/2015 FLU VACC 4 AZUL 3 YRS PLUS IM SNOMED CT: 22087393 CPT-4: 53188 11/11/2015 Vital Signs Date Vital 08/28/2018 Blood Pressure 1: 126/70 Code: 8480-6 BMI: 25.5 Code: 55395-0 Heart Rate 1: 62 bpm Height: 5'7" SpO2: 97% Weight: 163 lbs 05/22/2018 Blood Pressure 1: 130/72 Code: 8480-6 BMI: 25.5 Code: 94880-5 Heart Rate 1: 84 bpm Height: 5'7" SpO2: 96% Weight: 163 lbs 04/26/2018 Blood Pressure 1: 118/56 Code: 8480-6 BMI: 25.5 Code: 04750-3 Heart Rate 1: 60 bpm Height: 5'7" SpO2: 96% Weight: 163 lbs 12/21/2017 Blood Pressure 1: 132/56 Code: 8480-6 BMI: 25.7 Code: 97777-2 Heart Rate 1: 58 bpm Height: 5'7" SpO2: 93% Weight: 164 lbs 08/25/2017 Blood Pressure 1: 126/74 Code: 8480-6 BMI: 26.2 Code: 41384-4 Heart Rate 1: 70 bpm Height: 5'7" SpO2: 94% Weight: 167 lbs 05/30/2017 Blood Pressure 1: 120/66 Code: 8480-6 BMI: 26.6 Code: 07571-5 Heart Rate 1: 66 bpm Height: 5'7" SpO2: 95% Waist Measure (cm): 97 cm Weight: 170 lbs 04/20/2017 Blood Pressure 1: 138/78 Code: 8480-6 BMI: 26.6 Code: 27521-5 Heart Rate 1: 86 bpm Height: 5'7" SpO2: 96% Weight: 170 lbs 01/21/2017 Blood Pressure 1: 136/70 Code: 8480-6 BMI: 26.3 Code: 61191-2 Heart Rate 1: 79 bpm Height: 5'7" SpO2: 95% Weight: 168 lbs 10/22/2016 Blood Pressure 1: 134/72 Code: 8480-6 BMI: 26.3 Code: 29165-0 Heart Rate 1: 70 bpm Height: 5'7" SpO2: 95% Weight: 168 lbs 10/04/2016 Blood Pressure 1: 142/80 Code: 8480-6 BMI: 26.6 Code: 09684-5 Heart Rate 1: 72 bpm Height: 5'7" SpO2: 93% Weight: 170 lbs 06/18/2016 Blood Pressure 1: 132/76 Code: 8480-6 BMI: 26.2 Code: 09765-6 Heart Rate 1: 65 bpm Height: 5'7" SpO2: 95% Weight: 167 lbs 8 oz 05/21/2016 Blood Pressure 1: 126/76 Code: 8480-6 BMI: 26.0 Code: 95613-9 Heart Rate 1: 72 bpm Height: 5'7" SpO2: 98% Weight: 166 lbs 04/29/2016 Blood Pressure 1: 128/70 Code: 8480-6 BMI: 25.7 Code: 23453-9 Heart Rate 1: 67 bpm Height: 5'7" SpO2: 97% Temperature: 36.3 (C ) / 97.4 (F) Weight: 164 lbs 04/21/2016 Blood Pressure 1: 130/62 Code: 8480-6 BMI: 26.3 Code: 67202-0 Heart Rate 1: 74 bpm Height: 5'7" SpO2: 96% Temperature: 37.0 (C ) / 98.6 (F) Weight: 168 lbs 02/20/2016 Blood Pressure 1: 120/64 Code: 8480-6 BMI: 26.2 Code: 24974-9 Heart Rate 1: 65 bpm Height: 5'7" SpO2: 94% Weight: 167 lbs 01/01/2016 Blood Pressure 1: 106/60 Code: 8480-6 BMI: 25.7 Code: 92182-5 Heart Rate 1: 73 bpm Height: 5'7" SpO2: 98% Weight: 164 lbs 11/13/2015 Blood Pressure 1: 122/86 Code: 8480-6 BMI: 25.8 Code: 05147-6 Heart Rate 1: 80 bpm Height: 5'7" SpO2: 92% Weight: 165 lbs 11/07/2015 Blood Pressure 1: 118/64 Code: 8480-6 BMI: 25.8 Code: 52069-4 Heart Rate 1: 66 bpm Height: 5'7" SpO2: 95% Weight: 165 lbs 08/07/2015 Blood Pressure 1: 122/80 Code: 8480-6 BMI: 24.4 Code: 54511-7 Heart Rate 1: 74 bpm Height: 5'7" SpO2: 94% Weight: 156 lbs Functional Status No Functional Status data History of Present Illness Symptom Name Status Resu lt Effective Date Notes Location on the right 08/28/2018 None Quality [...] Encounters Encounter Performer Loca tion Codes Date 11974 EST. PATIENT, LEVEL III Diagnosis: Type 2 diabetes mellitus without complications[ICD10: E11.9] Diagnosis: Essential (primary) hypertension[ICD10: I10] Diagnosis: Pain in right knee[ICD10: M25.561] Diagnosis: Primary generalized (osteo)arthritis[ICD10: M15.0] [facility] CPT-4: 83765 08/28/2018 ([id number]) 59090 EST. P ATIENT, LEVEL III Diagnosis: Pain in left hip[ICD10: M25.552] Diagnosis: Pain in left shoulder[ICD10: M25.512] [facility] CPT-4: 75726 05/22/2018 41904 EST. PATIENT, LEVEL III Diagnosis: Essential (primary) hypertension[ICD10: I10] Diagnosis: Pain in right knee[ICD10: M25.561] Diagnosis: Pain in left shoulder[ICD10: M25.512] [facility] CPT- 4: 51268 04/26/2018 [id number] EST. PATIENT, LEVEL IV Diagnosis: Type 2 diabetes mellitus without complications[ICD10: E11.9] Diagnosis: Essential (primary) hypertension[ICD10: I10] Diagnosis: Pain in right knee[ICD10: M25.561] Lakeisha Hoskins MD, [facility] CPT-4: 47978 12/21/2017 71865 EST. PATIENT, LEVEL IV Diagnosis: Type 2 diabetes mellitus without complications[ICD10: E11.9] Diagnosis: Essential (primary) hypertension[ICD10: I10] Diagnosis: Pain in right knee[ICD10: M25.561] Lakeisha Hoskins MD, [facility] CPT-4: 90925 08/25/2017 [id number] EST. PATIENT, LEVEL IV Diagnosis: Type 2 diabetes mellitus without complications[ICD10: E11.9] Diagnosis: Essential (primary) hypertension[ICD10: I10] Lakeisha Hoskins MD, [facility] CPT-4: 94854 04/20/2017 ([id number]) 64214 EST. P ATIENT, LEVEL III Diagnosis: Essential (primary) hypertension[ICD10: I10] Diagnosis: Obstructive sleep apnea (adult) (pediatric)[ICD10: G47.33] Nancy Hoskins MD, [facility] CPT-4: 30501 01/21/2017 ([id number]) 95824 EST. P ATIENT, LEVEL IV Diagnosis: Essential (primary) hypertension[ICD10: I10] Diagnosis: Type 2 diabetes mellitus without complications[ICD10: E11.9] Diagnosis: Obstructive sleep apnea (adult) (pediatric)[ICD10: G47.33] Nancy Hoskins MD, [facility] CPT-4: 39703 10/22/2016 ([id number]) 31691 EST. P ATIENT, LEVEL III Diagnosis: Localized edema[ICD10: R60.0] Diagnosis: Rash and other nonspecific skin eruption[ICD10: R21] Nancy Hoskins MD, [facility] CPT-4: 45443 10/04/2016 ([id number]) 93662 EST. P ATIENT, LEVEL IV Diagnosis: Essential (primary) hypertension[ICD10: I10] Diagnosis: Type 2 diabetes mellitus without complications[ICD10: E11.9] Diagnosis: Mixed hyperlipidemia[ICD10: E78.2] Nancy Hoskins MD, [facility] CPT-4: 88588 06/18/2016 ([id number]) 10861 EST. P ATIENT, LEVEL III Diagnosis: Cough[ICD10: R05] Diagnosis: Acute bronchitis, unspecified[ICD10: J20.9] Nancy Hoskins MD, [facility] CPT-4: 89428 04/29/2016 12198 EST. PATIENT, LEVEL IV Diagnosis: Other acute sinusitis[ICD10: J01.80] Diagnosis: Other allergic rhinitis[ICD10: J30.89] Lakeisha Hoskins MD, [facility] CPT-4: 27698 04/21/2016 ([id number]) 09383 EST. P ATIENT, LEVEL IV Diagnosis: Essential (primary) hypertension[ICD10: I10] Diagnosis: Type 2 diabetes mellitus without complications[ICD10: E11.9] Diagnosis: Mixed hyperlipidemia[ICD10: E78.2] Diagnosis: Primary generalized (osteo)arthritis[ICD10: M15.0] Nancy Hoskins MD, [facility] CPT-4: 58219 02/20/2016 ([id number]) 59132 EST. P ATIENT, LEVEL IV Diagnosis: Cough[ICD10: R05] Diagnosis: Acute bronchitis due to Hemophilus influenzae[ICD10: J20.1] Diagnosis: Type 2 diabetes mellitus without complications[ICD10: E11.9] Diagnosis: Essential (primary) hypertension[ICD10: I10] Charlene Hoskins MD, [facility] CPT-4: 02514 01/01/2016 ([id number]) 16330 EST. P ATIENT, LEVEL IV Diagnosis: Essential (primary) hypertension[ICD10: I10] Diagnosis: Mixed hyperlipidemia[ICD10: E78.2] Diagnosis: Type 2 diabetes mellitus without complications[ICD10: E11.9] Nancy Hoskins MD, [facility] CPT-4: 39131 11/07/2015 OFFICE VISIT, NEW - LEVEL 4 Diagnosis: Type 2 diabetes mellitus without complications[ICD10: E11.9] Diagnosis: Essential (primary) hypertension[ICD10: I10] Diagnosis: Mixed hyperlipidemia[ICD10: E78.2] Diagnosis: Elevated prostate specific antigen [PSA][ICD10: R97.2] Nancy Hoskins MD, [facility] CPT-4: 07171 08/07/2015 Plan of Care Planned Activity Notes C odes Status Date Patient Education: Patient Medication Summary Completed 09/01/2018 [...] glucose control. 08/28/2018 Appointment: Lakeisha Putnam WPtel: [facility] (30 min) Complex 08/28/2018 Patient Education: Patient Medication Summary Completed 08/28/2018 Patient Education: Diabetes Completed 08/28/2018 Appointment: Lakeisha Putnam WPtel: [facility] (15 min) Moderate 08/21/2018 Visit Plan: Left shoulder pain -sta rted six weeks ago after a fall -will get xrays today and proceed as indicated -okay to take tylenol as needed for pain Left hip pain -also started after fall -xray hip today as well 05/22/2018 Appointment: Nancy Tavares WPtel: [phone] [place] (30 min) Complex 05/22/2018 Patient Education: [...] injection. 04/26/2018 Appointment: Lakeisha Putnam WPtel: [phone] [facility] (30 min) Complex 04/26/2018 Patient Education: Patient [...] improve. 12/21/2017 Appointment: Lakeisha Putnam WPtel: [phone] [facility] (15 min) Moderate 12/21/2017 Patient Education: Patient [...] of injection. 08/25/2017 Appointment: Lakeisha Putnam WPtel[facility] ([facility] min) Moderate 08/25/2017 Patient Education: Patient [...] Summary Completed 05/30/2017 Appointment: Lakeisha Putnam WPtel: [facility] [facility] - Annual Wellness Visit 05/27/2017 Appointment: Nancy Tavares WPtel: [phone] (30 min) Complex 04/22/2017 Visit Plan: Hypertension [...] controlled. 04/20/2017 Appointment: Lake[facility] Putnam [facility]Ptel[facility] [phone] [facility] (30 min) Complex 04/20/2017 Patient Education: Patient [...] improved sleep, etc. Will fax note to [facility]. 01/21/2017 Appointment: Nancy Tavares WPtel: [phone] [phone] (30 min) Complex 01/21/2017 Appointment: [facility] [phone] [phone] (30 min) Complex 01/21/2017 Patient Education: Patient [...] doing well-due for a new machine-will call [facility] to see what we need to do to get him a new machine. 10/22/2016 Appointment: Nancy Tavares WPtel: [phone] [phone] (30 min) Complex 10/22/2016 Patient Education: Patient [...] plan. 10/04/2016 Appointment: Nancy Tavares WPtel: [phone] [phone] (15 min) Moderate 10/04/2016 Patient Education: Patient [...] dications. 06/18/2016 Appointment: Nancy Tavares WPtel: [phone] [phone] (15 min) Moderate 06/18/2016 Patient Education: Patient [...] acutely worsen. 04/29/2016 Appointment: Nancy Tavares WPtel: [address] [place], [place] [phone] (15 min) Moderate 04/29/2016 Patient Education: Patient Medication Summary Completed 04/29/2016 Care Plan: CHEST X-RAY 2VW FRONTAL&LATL LOINC : 23895-0 Pending 04/29/2016 Visit Plan: Sinusitis - Pt [...] allergy spray. 04/21/2016 Appointment: Lakeisha Putnam WPtel: [address] [phone] (15 min) Moderate 04/21/2016 Patient Education: Patient [...] placard provided 02/20/2016 Appointment: Nancy Tavares WPtel: [phone] [phone] (30 min) Complex 02/20/2016 Patient Education: Patient [...] less controlled. 01/01/2016 Appointment: [phone] [place] (15 min) Moderate 01/01/2016 Patient Education: Patient [...] injection. 11/13/2015 Appointment: [facility] [phone] [phone] (15 min) Moderate 11/13/2015 Patient Education: Patient [...] response to medications. DM-too early for Hgb [id number] to have done next week 11/07/2015 Appointment: [facility]avares [facility]Ptel: [phone] [phone] (15 min) Moderate 11/07/2015 Patient Education: Patient [...] dications. Elevated PSA-awaiting biopsy results 08/07/2015 Appointment: Chaitanya Nancy WPtel: [phone] New Patient 08/07/2015 Patient Education: Patient Medication Summary Completed 08/07/2015 Instructions Comment COMPRESSION STOCKING S KETOCONAZOLE SHAMPOO THREE TIMES WEEKLY CONTINUE STEROID CREAM ORDERED BY BOWLING BALL WEIGHER AND PACKER CULTURE RASH LEFT AXILLA . Edema - [...] improved sleep, etc. Will fax note to [facility]. . Hypertension - con tinue [...] allow for greater blood glucose control. . Hypertension - wel l controlled - [...] assure normal liver response to medications. . Bronchitis - acute case of bronchitis [...] doing well-due for a new machine-will call [facility] to see what we need [...] response to medications. DM-too early for Hgb [id number] to have done next week . Hypertension [...] after fall -xray hip today as well CXR STOP SYMBICORT TWO PUFFS BID . Bronchitis - acute case of bronchitis identified. Pt has been given antibiotics, breathing treatments as appropriate, and pt has been instructed to call if symptoms are not improved, or if symptoms acutely worsen.
--- OUTSIDE RECORDS SUMMARY | 2019-04-11 03:29 | XMS REPORT | CCD ---
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 Name Role Phone PP Unavailable CCM Unavailable Summary Purpose Interface Exchange Insurance Providers Payer name Policy type / Coverage type Covered constitution party ID Effective Begin Date Effective End Date WPS Medicare Part B Medicare Part B [id number] Unknown [facility] Part B [id number] Un known Family history Brother Diagnosis Age [...] Retir ed 08/07/[address]: 1868000 Quit over 10 years ago 1970 08/07/[address]: 807884197 Never drinks alcohol 08/07/2015 Allergies, Adverse Reactions, [...] 40 mg/mL maggie pension for injection RxNorm: 3897038 1 Milliliter(s) Inj 08/28/2018 08/28/2018 In active losartan 50 mg tablet RxNorm: 102458 1 Tablet(s) PO daily TAKE 1 TABLET BY MO UTH ONCE DAILY 07/25/2018 01/20/2019 Active meloxicam 7.5 mg tablet RxNorm: 034299 TAKE 1 TABLET BY MOUTH ONCE DAILY 06/01/2018 No Stop Date Active Advair Diskus 250 mc g-50 mcg/dose powder for inhalation RxNorm: 1273922 INHALE 1 DOSE BY MOUTH TWICE DAILY 05/22/2018 No Stop Date Active fluticasone propiona te 50 mcg/actuation nasal spray,suspension RxNorm: 4671730 USE 2 SPRAY(S) IN EACH NOSTRIL ONCE DAILY 05/17/2018 No Stop Date Active simvastatin 20 mg ta blet RxNorm: 740661 TAKE 1 TABLET BY MOUT H ONCE DAILY 05/16/2018 No Stop Date Active Kenalog 40 mg/mL maggie pension for injection RxNorm: 4100747 1 Milliliter(s) Inj 04/26/2018 04/26/2018 In active Kenalog 40 mg/mL maggie pension for injection RxNorm: 6513081 1 Milliliter(s) Inj 04/26/2018 04/26/2018 In active losartan 50 mg tablet RxNorm: 257970 TAKE 1 TABLET BY MOUTH ONCE DAILY 04/24/2018 07/24/2018 In active fluticasone propiona te 50 mcg/actuation nasal spray,suspension RxNorm: 8075907 USE 2 SPRAY(S) IN EACH NOSTRIL ONCE DAILY 03/27/2018 05/16/2018 Inactive Advair Diskus 250 mc g-50 mcg/dose powder for inhalation RxNorm: 2296715 INHALE 1 DOSE BY MOUTH TWICE DAILY 03/21/2018 05/21/2018 Inactive montelukast 10 mg ta blet RxNorm: 201267 TAKE ONE TABLET BY MO UTH ONCE DAILY 03/15/2018 No Stop Date Active Advair Diskus 250 mc g-50 mcg/dose powder for inhalation RxNorm: 4715834 INHALE 1 DOSE BY MOUTH TWICE DAILY 02/20/2018 03/20/2018 Inactive fluticasone 50 mcg/a ctuation nasal spray,suspension RxNorm: 3539277 USE 2 SPRAY(S) IN EACH NOSTRIL ONCE DAILY 02/08/2018 03/26/2018 Inactive metformin 500 mg tablet RxNorm: 976058 TAKE 1 TABLET BY MOUTH ONCE DAILY 01/16/2018 No Stop Date Active Advair Diskus 250 mc g-50 mcg/dose powder for inhalation RxNorm: 2944467 INHALE 1 DOSE BY MOUTH TWICE DAILY 12/19/2017 02/19/2018 Inactive meloxicam 7.5 mg tablet RxNorm: 241179 TAKE 1 TABLET BY MOUTH ONCE DAILY 12/01/2017 05/31/2018 In active simvastatin 20 mg ta blet RxNorm: 881008 TAKE 1 TABLET BY MOUT H ONCE DAILY 11/14/2017 05/15/2018 In active losartan 50 mg tablet RxNorm: 136356 TAKE ONE TABLET BY MOUTH ONCE DAILY 10/27/2017 04/23/2018 In active Advair Diskus 250 mc g-50 mcg/dose powder for inhalation RxNorm: 9430061 INHALE 1 DOSE BY MOUTH TWICE DAILY 10/19/2017 12/18/2017 Inactive fluticasone 50 mcg/a ctuation nasal spray,suspension RxNorm: 4931637 USE TWO SPRAY(S) IN EACH NOSTRIL ONCE DAILY 10/19/2017 02/07/2018 Inactive Kenalog 40 mg/mL maggie pension for injection RxNorm: 6156544 1 Milliliter(s) Inj 08/25/2017 08/25/2017 In active meloxicam 7.5 mg tablet RxNorm: 710844 TAKE ONE TABLET BY MOUTH ONCE DAILY 06/06/2017 11/30/2017 In active simvastatin 20 mg ta blet RxNorm: 736125 TAKE ONE TABLET BY MO UTH ONCE DAILY 05/17/2017 11/13/2017 In active metformin 500 mg tablet RxNorm: 641933 TAKE ONE TABLET BY MOUTH ONCE DAILY 05/05/2017 01/15/2018 In active Advair Diskus 250 mc g-50 mcg/dose powder for inhalation RxNorm: 6120616 INHALE ONE DOSE BY MOUTH TWICE DAILY 04/19/2017 10/18/2017 Inactive Tamiflu 75 mg capsule RxNorm: 374573 1 Capsule(s) PO daily 03/25/2017 03/24/2017 Inactive Tamiflu 75 mg capsule RxNorm: 812948 1 Capsule(s) PO daily 03/25/2017 03/31/2017 Inactive montelukast 10 mg ta blet RxNorm: 147189 TAKE ONE TABLET BY MO UT ONCE DAILY 03/21/2017 03/14/2018 In active losartan 50 mg tablet RxNorm: 985918 TAKE ONE TABLET BY MOUTH ONCE DAILY 01/27/2017 10/26/2017 In active fluticasone 50 mcg/a ctuation nasal spray,suspension RxNorm: 2877399 USE TWO SPRAY(S) IN EACH NOSTRIL ONCE DAILY 01/17/2017 10/18/2017 Inactive meloxicam 7.5 mg tablet RxNorm: 768725 TAKE ONE TABLET BY MOUTH ONCE DAILY 12/06/2016 06/03/2017 In active metformin 500 mg tablet RxNorm: 397158 Tablet(s) TAKE ONE TABLET BY MOUTH TWICE DAILY 11/30/2016 11/24/2017 Inactive simvastatin 20 mg ta blet RxNorm: 887829 TAKE ONE TABLET BY [facility] ONCE DAILY 11/15/2016 05/13/2017 In active Advair Diskus 250 mc g-50 mcg/dose powder for inhalation RxNorm: 5757345 INHALE ONE PUFF BY MOUTH TWICE DAILY 10/22/2016 04/18/2017 Inactive ketoconazole 2 % [facility] RxNorm: 278352 1 Application TOP TIW 10/04/2016 10/17/2016 Inactive fluticasone 50 mcg/a ctuation nasal spray,suspension RxNorm: 1772577 USE TWO SPRAY(S) IN EACH NOSTRIL ONCE DAILY 09/21/2016 11/19/2016 Inactive montelukast 10 mg ta blet RxNorm: 822507 TAKE ONE TABLET BY MO UTH ONCE DAILY 09/21/2016 03/19/2017 In active losartan 50 mg tablet RxNorm: 418192 TAKE ONE TABLET BY MOUTH ONCE DAILY 08/02/2016 01/26/2017 In active metformin 500 mg tablet RxNorm: 692233 TAKE ONE TABLET BY MOUTH TWICE DAILY 07/22/2016 10/19/2016 In active furosemide 20 mg tablet RxNorm: 550957 1 Tablet(s) PO daily as needed for swell ing 07/21/2016 04/18/2018 Inactive meloxicam 7.5 mg tablet RxNorm: 456090 TAKE ONE TABLET BY MOUTH ONCE DAILY 06/08/2016 12/04/2016 In active cefdinir 300 mg capsule RxNorm: 991319 1 Capsule(s) PO BID 04/29/2016 05/05/2016 Inactive prednisone 20 mg tablet RxNorm: 804373 1 Tablet(s) PO BID 04/29/2016 05/03/2016 Inactive Zithromax Z-Sherif 250 mg tablet RxNorm: 450754 1 Tablet(s) PO UD 04/21/2016 04/28/2016 Inactive Kenalog 40 mg/mL maggie pension for injection RxNorm: 2330998 1 Milliliter(s) Inj 04/21/2016 04/21/2016 In active montelukast 10 mg ta blet RxNorm: 378112 TAKE ONE TABLET BY MO [facility] ONCE DAILY 03/22/2016 09/17/2016 In active fluticasone 50 mcg/a ctuation nasal spray,suspension RxNorm: 9142499 2 [place] NASAL daily each nare 03/15/2016 07/12/2016 Inactive qs metformin 500 mg tablet RxNorm: 213654 1 Tablet(s) PO daily 01/16/2016 2016 Inactive Patient does not need a refill- just upd ate dosing Advair Diskus 250 mc g-50 mcg/dose powder for inhalation RxNorm: 0295004 1 INH BID 01/01/2016 04/29/2016 In active Advair Diskus 250 mc g-50 mcg/dose powder for inhalation RxNorm: 8305748 1 INH daily 01/01/2016 12/31/2015 Inactive metformin 500 mg tablet RxNorm: 470310 1 Tablet(s) PO daily 01/01/2016 01/15/2016 Inactive simvastatin 40 mg ta blet RxNorm: 886347 1 Tablet(s) PO daily 01/01/2016 04/17/2018 Inactive azithromycin 250 mg tablet RxNorm: 814770 1 Tablet(s) PO take t wo pills on day #1, then one pill daily x 4 more days 01/01/2016 02/17/2016 Inactive meloxicam 7.5 mg tablet RxNorm: 525945 1 Tablet(s) PO daily 12/11/2015 06/07/2016 Inactive simvastatin 20 mg ta blet RxNorm: 213466 1 Tablet(s) PO daily 11/21/2015 12/31/2015 Inactive metformin 500 mg tablet RxNorm: 635817 1 Tablet(s) PO BID 11/21/2015 12/31/2015 Inactive Advair Diskus 250 mc g-50 mcg/dose powder for inhalation RxNorm: 1089476 1 INH BID 11/21/2015 12/31/2015 In active montelukast 10 mg ta blet RxNorm: 436401 1 Tablet(s) PO daily 09/25/2015 03/21/2016 Inactive losartan 50 mg tablet RxNorm: 724465 1 Tablet(s) PO daily 09/04/2015 08/01/2016 Inactive Restasis 0.05 % eye drops in a dropperette RxNorm: 537914 1 gtts OPH BID 08/07/2015 No Stop Date Active meloxicam 7.5 mg tablet RxNorm: 331273 1 Tablet(s) PO daily 08/07/2015 09/05/2015 Inactive Kay oral RxNorm: 193839 oral No Start Date Active finasteride 5 mg tablet RxNorm: 238698 1 Tablet(s) PO daily No Start Date Active Zyrtec 10 mg tablet RxNorm: 1698062 1 Tablet(s) PO daily No Start Date Active Co Q-10 200 mg capsule RxNorm: 307543 1 Capsule(s) PO daily No Start Date Active Calcium 500 + D (D3) oral RxNorm: 336770 oral No S tart Date Active simethicone 125 mg c apsule RxNorm: 108375 Capsule(s) PO as needed No Start Date Active Vitamin D3 1,000 uni t tablet RxNorm: 826601 1 Tablet(s) PO daily No Start Date Active omega-3 fatty acids 1,000 mg capsule RxNorm: 4 Capsule(s) PO daily No Start Date Active triamcinolone aceton chasity 0.1 % topical cream RxNorm: 7629060 1 TOP UD No Start Date Active fluticasone 50 mcg/a ctuation nasal spray,suspension RxNorm: 4506169 2 [place] NASAL daily each nare No Start Date 03/14/2016 Inactive losartan 50 mg tablet RxNorm: 945894 1 Tablet(s) PO daily No Start Date 09/03/2015 Inactive metformin 500 mg tablet RxNorm: 496398 1 Tablet(s) PO daily No Start Date 11/20/2015 Inactive simvastatin 40 mg ta blet RxNorm: 865161 1 Tablet(s) PO daily No Start Date 11/20/2015 Inactive furosemide 20 mg tablet RxNorm: 032418 1 Tablet(s) PO daily as needed No Start Date 07/20/2016 Inactive Advair Diskus 250 mc g-50 mcg/dose powder for inhalation RxNorm: 0751766 1 INH daily No Start Date 11/20/2015 Inactive Multiple Vitamin oral RxNorm: 54125 oral No Start Date 12/31/2015 Inactive montelukast 10 mg ta blet RxNorm: 217707 1 Tablet(s) PO daily No Start Date 09/24/2015 Inactive Medication Administered Medication Codes Instruc tions Start Date Status Kenalog 40 mg/mL suspension for injection RxNorm: 7978607 1Milliliter 08/28/2018 N o longer Active Kenalog 40 mg/mL suspension for injection RxNorm: 0456263 1Milliliter 04/26/2018 N o longer Active Kenalog 40 mg/mL suspension for injection RxNorm: 3917489 1Milliliter 04/26/2018 N o longer Active Kenalog 40 mg/mL suspension for injection RxNorm: 6367935 1Milliliter 08/25/2017 N o longer Active Kenalog 40 mg/mL suspension for injection RxNorm: 6534366 1Milliliter 04/21/2016 N o longer Active Immunizations [...] 32.4 pg 08/28/2018 Cbc With Differential Ord2 Swisher% 10.1 % 08/28/2018 Cbc With Differential Ord2 MCHC 33.0 pg 08/28/2018 Cbc With Differential Ord2 Eos% 5.5 % 08/28/2018 Cbc With Differential Ord2 PLT 245 K/ul 08/28/2018 Cbc With Differential Ord2 Baso% 0.4 % 08/28/2018 Cbc With Differential Ord2 RDW 13.3 % 08/28/2018 Cbc With Differential Ord2 Neut ABS# 4.99 K/ul 08/28/2018 Cbc With Differential Ord2 Lymph ABS# 2.05 K/ul 08/28/2018 Cbc With Differential Ord2 Swisher ABS# 0.9 K/ul 08/28/2018 Cbc With Differential Ord2 Eos ABS# 0.5 K/ul 08/28/2018 Cbc With Differential Ord2 Baso ABS# 0.0 K/ul 08/28/2018 %Hba1C Dam665 % HbA1c 37041-1 5.8 % 08/28/2018 %Hba1C Djy251 Gluc Ave 120 mg/dL 08/28/2018 Comp Metabolic Weu230 NA 141 mEq/L 08/28/2018 Comp Metabolic Pjf321 K 4.3 mEq/L 08/28/2018 Comp Metabolic Spl560 CL 105 mEq/L 08/28/2018 Comp Metabolic Jui041 CO2 28.0 mEq/L 08/28/2018 Comp Metabolic Rqm213 AN ION GAP 12 08/28/2018 Comp Metabolic Pnx209 GL UCOSE 101 mg/dL 08/28/2018 Comp Metabolic Crp491 Cr eat 0.9 mg/dL 08/28/2018 Comp Metabolic Mxa689 eG FR 89 ml/min/1.73m2 08/28 Comp Metabolic Rfk590 BUN 26 mg/dL 08/28/2018 Comp Metabolic Qin905 B/ C Ratio 29.9 Ratio 08/28/2018 Comp Metabolic Fue695 CA LCIUM 9.4 mg/dL 08/28/2018 Comp Metabolic Qou815 AL K PHOS 60 U/L 08/28/2018 Comp Metabolic Zcz809 T(SGOT) 17 U/L 08/28/2018 Comp Metabolic Gyl379 AL T(SGPT) 27 U/L 08/28/2018 Comp Metabolic Oxw032 BI LI T 0.6 mg/dL 08/28/2018 Comp Metabolic Yno203 AL BUMIN 4.2 g/dL 08/28/2018 Comp Metabolic Hnt051 TP RO 6.6 g/dL 08/28/2018 Comp Metabolic Xvf393 GL OB 2.4 g/dL 08/28/2018 Comp Metabolic Xbu650 A/ G Ratio 1.7 Ratio 08/28/2018 Comp Metabolic Atz061 Os mo 286 mOsmo 08/28/2018 %Hba1C Hks575 % HbA1c 07754-6 6.0 % 12/21/2017 %Hba1C Xef723 Gluc Ave 126 mg/dL 12/21/2017 %Hba1C Nij174 % HbA1c 77538-2 6.2 % 04/20/2017 %Hba1C Gop862 Gluc Ave 131 mg/dL 04/20/2017 Cbc With [...] 27.7 % 04/20/2017 Cbc With Differential Ord2 Swisher% 9.3 % 04/20/2017 Cbc With Differential Ord2 MCH 31.8 pg 04/20/2017 Cbc With Differential Ord2 Eos% 3.2 % 04/20/2017 Cbc With Differential Ord2 MCHC 33.8 pg 04/20/2017 Cbc With Differential Ord2 PLT 236 K/ul 04/20/2017 Cbc With Differential Ord2 Baso% 0.3 % 04/20/2017 Cbc With Differential Ord2 Neut ABS# 3.92 K/ul 04/20/2017 Cbc With Differential Ord2 RDW 13.3 % 04/20/2017 Cbc With Differential Ord2 Lymph ABS# 1.82 K/ul 04/20/2017 Cbc With Differential Ord2 Swisher ABS# 0.6 K/ul 04/20/2017 Cbc With Differential Ord2 Eos ABS# 0.2 K/ul 04/20/2017 Cbc With Differential Ord2 Baso ABS# 0.0 K/ul 04/20/2017 Comp Metabolic Koo399 NA 141 mEq/L 04/20/2017 Comp Metabolic Hyf796 K 4.5 mEq/L 04/20/2017 Comp Metabolic Agn668 CL 106 mEq/L 04/20/2017 Comp Metabolic Rja267 CO2 27.0 mEq/L 04/20/2017 Comp Metabolic Bsb908 AN ION GAP 13 04/20/2017 Comp Metabolic Bht638 GL UCOSE 109 mg/dL 04/20/2017 Comp Metabolic Cch721 Cr eat 1.0 mg/dL 04/20/2017 Comp Metabolic Orw963 eG FR 81 ml/min/1.73m2 04/20 Comp Metabolic Qsa219 BUN 23 mg/dL 04/20/2017 Comp Metabolic Wkp667 B/ C Ratio 24.2 Ratio 04/20/2017 Comp Metabolic Hsg970 CA LCIUM 9.3 mg/dL 04/20/2017 Comp Metabolic Lyr327 AL K PHOS 82 U/L 04/20/2017 Comp Metabolic Dey082 T(SGOT) 22 U/L 04/20/2017 Comp Metabolic Yxi456 AL T(SGPT) 24 U/L 04/20/2017 Comp Metabolic Uvq608 BI LI T 0.4 mg/dL 04/20/2017 Comp Metabolic Uxh891 AL BUMIN 4.3 g/dL 04/20/2017 Comp Metabolic Jqr654 TP RO 6.8 g/dL 04/20/2017 Comp Metabolic Xah887 GL OB 2.5 g/dL 04/20/2017 Comp Metabolic Tgi580 A/ G Ratio 1.7 Ratio 04/20/2017 Comp Metabolic Swm895 Os mo 286 mOsmo 04/20/2017 %Hba1C Ymj262 % HbA1c 69824-6 5.8 % 10/22/2016 %Hba1C Knf123 Gluc Ave 120 mg/dL 10/22/2016 Cbc With Differential Ord2 WBC 7.27 K/ul 10/22/2016 Cbc With Differential Ord2 RBC 4.09 M/ul 10/22/2016 Cbc With Differential Ord2 HGB 13.3 g/dl 10/22/2016 Cbc With Differential Ord2 HCT 39.4 % 10/22/2016 Cbc With Differential Ord2 Neut% 60.6 % 10/22/2016 Cbc With Differential Ord2 Lymph% 25.4 % 10/22/2016 Cbc With Differential Ord2 MCV 96.3 fl 10/22/2016 Cbc With Differential Ord2 Swisher% 10.3 % 10/22/2016 Cbc With Differential Ord2 MCH 32.5 pg 10/22/2016 Cbc With Differential Ord2 MCHC 33.8 pg 10/22/2016 Cbc With Differential Ord2 Eos% 3.4 % 10/22/2016 Cbc With Differential Ord2 Baso% 0.3 % 10/22/2016 Cbc With Differential Ord2 PLT 227 K/ul 10/22/2016 Cbc With Differential Ord2 RDW 13.4 % 10/22/2016 Cbc With Differential Ord2 Neut ABS# 4.40 K/ul 10/22/2016 Cbc With Differential Ord2 Lymph ABS# 1.85 K/ul 10/22/2016 Cbc With Differential Ord2 Swisher ABS# 0.8 K/ul 10/22/2016 Cbc With Differential Ord2 Eos ABS# 0.3 K/ul 10/22/2016 Cbc With Differential Ord2 Baso ABS# 0.0 K/ul 10/22/2016 Comp Metabolic Gsk636 NA 141 mEq/L 10/22/2016 Comp Metabolic Zwn887 K 4.4 mEq/L 10/22/2016 Comp Metabolic Duc920 CL 105 mEq/L 10/22/2016 Comp Metabolic Icz363 CO2 27.0 mEq/L 10/22/2016 Comp Metabolic Xkq201 AN ION GAP 13 10/22/2016 Comp Metabolic Wya455 GL UCOSE 103 mg/dL 10/22/2016 Comp Metabolic Pjs295 Cr eat 1.0 mg/dL 10/22/2016 Comp Metabolic Cfx605 eG FR 76 ml/min/1.73m2 10/22 Comp Metabolic Aon135 BUN 27 mg/dL 10/22/2016 Comp Metabolic Zsa625 B/ C Ratio 27.0 Ratio 10/22/2016 Comp Metabolic Xzz996 CA LCIUM 9.3 mg/dL 10/22/2016 Comp Metabolic Njh023 AL K PHOS 72 U/L 10/22/2016 Comp Metabolic Qeg087 T(SGOT) 23 U/L 10/22/2016 Comp Metabolic Nnv965 AL T(SGPT) 26 U/L 10/22/2016 Comp Metabolic Ayi573 BI LI T 0.4 mg/dL 10/22/2016 Comp Metabolic Qic640 AL BUMIN 4.2 g/dL 10/22/2016 Comp Metabolic Vmy881 TP RO 6.7 g/dL 10/22/2016 Comp Metabolic Zwf675 GL OB 2.5 g/dL 10/22/2016 Comp Metabolic Ato425 A/ G Ratio 1.6 Ratio 10/22/2016 Comp Metabolic Jod760 Os mo 287 mOsmo 10/22/2016 Comp Metabolic Pdi536 NA 143 mEq/L 06/17/2016 Comp Metabolic Sfb756 K 4.1 mEq/L 06/17/2016 Comp Metabolic Olq945 CL 108 mEq/L 06/17/2016 Comp Metabolic Lmx428 CO2 28.0 mEq/L 06/17/2016 Comp Metabolic Mem173 AN ION GAP 11 06/17/2016 Comp Metabolic Cix812 GL UCOSE 106 mg/dL 06/17/2016 Comp Metabolic Orn211 Cr eat 0.9 mg/dL 06/17/2016 Comp Metabolic Dtv582 eG FR 92 ml/min/1.73m2 06/17 Comp Metabolic Gpk039 BUN 22 mg/dL 06/17/2016 Comp Metabolic Cle871 B/ C Ratio 25.9 Ratio 06/17/2016 Comp Metabolic Spx074 CA LCIUM 8.8 mg/dL 06/17/2016 Comp Metabolic Ieq941 AL K PHOS 55 U/L 06/17/2016 Comp Metabolic Hnu102 T(SGOT) 21 U/L 06/17/2016 Comp Metabolic Rts629 AL T(SGPT) 24 U/L 06/17/2016 Comp Metabolic Shb102 BI LI T 0.6 mg/dL 06/17/2016 Comp Metabolic Fte544 AL BUMIN 4.0 g/dL 06/17/2016 Comp Metabolic Qlf085 TP RO 6.2 g/dL 06/17/2016 Comp Metabolic Jlf959 GL OB 2.2 g/dL 06/17/2016 Comp Metabolic Jqf545 A/ G Ratio 1.8 Ratio 06/17/2016 Comp Metabolic Nvk037 Os mo 289 mOsmo 06/17/2016 Lipid Ord30 CHOL 163 mg/dL 06/17/2016 Lipid Ord30 HDL 54.0 mg/dl 06/17/2016 Lipid Ord30 TRIG 133 mg/dL 06/17/2016 Lipid Ord30 LDL 82 mg/dL 06/17/2016 Lipid Ord30 C/HDL 3.0 Ratio 06/17/2016 %Hba1C Erq195 % HbA1c 50584-4 6.0 % 06/17/2016 %Hba1C Ljm533 Gluc Ave 126 mg/dL 06/17/2016 Total Psa [...] 32.7 pg 06/17/2016 Cbc With Differential Ord2 Swisher% 10.7 % 06/17/2016 Cbc With Differential Ord2 Eos% 3.3 % 06/17/2016 Cbc With Differential Ord2 MCHC 34.2 pg 06/17/2016 Cbc With Differential Ord2 PLT 211 K/ul 06/17/2016 Cbc With Differential Ord2 Baso% 0.2 % 06/17/2016 Cbc With Differential Ord2 RDW 14.1 % 06/17/2016 Cbc With Differential Ord2 Neut ABS# 3.25 K/ul 06/17/2016 Cbc With Differential Ord2 Lymph ABS# 1.71 K/ul 06/17/2016 Cbc With Differential Ord2 Swisher ABS# 0.6 K/ul 06/17/2016 Cbc With Differential Ord2 Eos ABS# 0.2 K/ul 06/17/2016 Cbc With Differential Ord2 Baso ABS# 0.0 K/ul 06/17/2016 Tsh Ord6 hTSH II 2.91 uIU/mL 06/17/2016 Tsh Ord6 hTSH II 2.45 uIU/mL 02/19/2016 %Hba1C Hxi867 % HbA1c 61921-3 5.8 % 02/19/2016 %Hba1C Zcn481 Gluc Ave 120 mg/dL 02/19/2016 Comp Metabolic Olr491 NA 141 mEq/L 02/19/2016 Comp Metabolic Fup579 K 4.2 mEq/L 02/19/2016 Comp Metabolic Jex423 CL 107 mEq/L 02/19/2016 Comp Metabolic Yxz536 CO2 29.0 mEq/L 02/19/2016 Comp Metabolic Yfv815 AN ION GAP 9 02/19/2016 Comp Metabolic Ypu001 GL UCOSE 106 mg/dL 02/19/2016 Comp Metabolic Wtf677 Cr eat 0.9 mg/dL 02/19/2016 Comp Metabolic Een952 eG FR 90 ml/min/1.73m2 02/18 Comp Metabolic Siy097 BUN 24 mg/dL 02/19/2016 Comp Metabolic Vtf835 B/ C Ratio 27.6 Ratio 02/19/2016 Comp Metabolic Gpe447 CA LCIUM 9.1 mg/dL 02/19/2016 Comp Metabolic Yno220 AL K PHOS 67 U/L 02/19/2016 Comp Metabolic Oog284 T(SGOT) 25 U/L 02/19/2016 Comp Metabolic Htk060 AL T(SGPT) 31 U/L 02/19/2016 Comp Metabolic Rqg144 BI LI T 0.6 mg/dL 02/19/2016 Comp Metabolic Eib303 AL BUMIN 4.1 g/dL 02/19/2016 Comp Metabolic Ukb951 TP RO 6.5 g/dL 02/19/2016 Comp Metabolic Ykk681 GL OB 2.4 g/dL 02/19/2016 Comp Metabolic Lwx185 A/ G Ratio 1.7 Ratio 02/19/2016 Comp Metabolic Tzs149 Os mo 286 mOsmo 02/19/2016 Cbc With [...] 26.9 % 02/19/2016 Cbc With Differential Ord2 Swisher% 10.5 % 02/19/2016 Cbc With Differential Ord2 MCH 31.7 pg 02/19/2016 Cbc With Differential Ord2 MCHC 33.3 pg 02/19/2016 Cbc With Differential Ord2 Eos% 5.1 % 02/19/2016 Cbc With Differential Ord2 Baso% 0.3 % 02/19/2016 Cbc With Differential Ord2 PLT 239 K/ul 02/19/2016 Cbc With Differential Ord2 RDW 13.4 % 02/19/2016 Cbc With Differential Ord2 Neut ABS# 3.39 K/ul 02/19/2016 Cbc With Differential Ord2 Lymph ABS# 1.59 K/ul 02/19/2016 Cbc With Differential Ord2 Swisher ABS# 0.6 K/ul 02/19/2016 Cbc With Differential Ord2 Eos ABS# 0.3 K/ul 02/19/2016 Cbc With Differential Ord2 Baso ABS# 0.0 K/ul 02/19/2016 Lipid Ord30 CHOL 174 mg/dL 02/19/2016 Lipid Ord30 HDL 54.0 mg/dl 02/19/2016 Lipid Ord30 TRIG 110 mg/dL 02/19/2016 Lipid Ord30 LDL 98 mg/dL 02/19/2016 Lipid Ord30 C/HDL 3.2 Ratio 02/19/2016 %Hba1C Fxs606 % HbA1c 53421-8 6.0 % 11/11/2015 %Hba1C Qwn131 Gluc Ave 126 mg/dL 11/11/2015 %Hba1C Ebq945 % HbA1c 04471-8 6.0 % 11/07/2015 %Hba1C Nyg285 Gluc Ave 126 mg/dL 11/07/2015 Cbc With [...] 30.0 % 11/06/2015 Cbc With Differential Ord2 Swisher% 9.5 % 11/06/2015 Cbc With Differential Ord2 MCH 32.0 pg 11/06/2015 Cbc With Differential Ord2 Eos% 5.2 % 11/06/2015 Cbc With Differential Ord2 MCHC 34.1 pg 11/06/2015 Cbc With Differential Ord2 Baso% 0.3 % 11/06/2015 Cbc With Differential Ord2 PLT 206 K/ul 11/06/2015 Cbc With Differential Ord2 RDW 14.1 % 11/06/2015 Cbc With Differential Ord2 Neut ABS# 3.28 K/ul 11/06/2015 Cbc With Differential Ord2 Lymph ABS# 1.79 K/ul 11/06/2015 Cbc With Differential Ord2 [place] ABS# 0.6 K/ul 11/06/2015 Cbc With Differential Ord2 Eos ABS# 0.3 K/ul 11/06/2015 Cbc With Differential Ord2 Baso ABS# 0.0 K/ul 11/06/2015 Comp Metabolic Sqe695 NA 141 mEq/L 11/06/2015 Comp Metabolic Vkk055 K 4.3 mEq/L 11/06/2015 Comp Metabolic Cxv457 CL 107 mEq/L 11/06/2015 Comp Metabolic Nqb101 CO2 28.0 mEq/L 11/06/2015 Comp Metabolic Icd444 AN ION GAP 10 11/06/2015 Comp Metabolic Puh164 GL UCOSE 117 mg/dL 11/06/2015 Comp Metabolic Rnu070 Cr eat 0.9 mg/dL 11/06/2015 Comp Metabolic Lve495 eG FR 88 ml/min/1.73m2 11/05 Comp Metabolic Ptr451 BUN 22 mg/dL 11/06/2015 Comp Metabolic Tsb890 B/ C Ratio 25.0 Ratio 11/06/2015 Comp Metabolic Nft416 CA LCIUM 9.1 mg/dL 11/06/2015 Comp Metabolic Jny246 AL K PHOS 59 U/L 11/06/2015 Comp Metabolic Uac843 T(SGOT) 23 U/L 11/06/2015 Comp Metabolic Dav687 AL T(SGPT) 26 U/L 11/06/2015 Comp Metabolic Lnd899 BI LI T 0.6 mg/dL 11/06/2015 Comp Metabolic Nec853 AL BUMIN 4.0 g/dL 11/06/2015 Comp Metabolic Fpy619 TP RO 6.4 g/dL 11/06/2015 Comp Metabolic Dpg181 GL OB 2.4 g/dL 11/06/2015 Comp Metabolic Jsr648 A/ G Ratio 1.7 Ratio 11/06/2015 Comp Metabolic Qnq726 Os mo 286 mOsmo 11/06/2015 Tsh Ord6 hTSH II 2.59 uIU/mL 11/06/2015 Lipid Ord30 CHOL 159 mg/dL 11/06/2015 Lipid Ord30 HDL 42.0 mg/dl 11/06/2015 Lipid Ord30 TRIG 129 mg/dL 11/06/2015 Lipid Ord30 LDL 91 mg/dL 11/06/2015 Lipid Ord30 C/HDL 3.8 Ratio 11/06/2015 Comp Metabolic Qts242 NA 140 mEq/L 08/08/2015 Comp Metabolic Arx086 K 4.0 mEq/L 08/08/2015 Comp Metabolic Clg099 CL 108 mEq/L 08/08/2015 Comp Metabolic Lgh605 CO2 25.0 mEq/L 08/08/2015 Comp Metabolic Svt911 AN ION GAP 11 08/08/2015 Comp Metabolic Kpj747 GL UCOSE 100 mg/dL 08/08/2015 Comp Metabolic Nju479 Cr eat 0.9 mg/dL 08/08/2015 Comp Metabolic Goe692 eG FR 82 ml/min/1.73m2 08/07 Comp Metabolic Neg295 BUN 19 mg/dL 08/08/2015 Comp Metabolic Pon545 B/ C Ratio 20.2 Ratio 08/08/2015 Comp Metabolic Kqx238 CA LCIUM 8.5 mg/dL 08/08/2015 Comp Metabolic Kiu730 AL K PHOS 56 U/L 08/08/2015 Comp Metabolic Pgq318 T(SGOT) 18 U/L 08/08/2015 Comp Metabolic Uil839 AL T(SGPT) 17 U/L 08/08/2015 Comp Metabolic Ega224 BI LI T 0.7 mg/dL 08/08/2015 Comp Metabolic Fdu710 AL BUMIN 3.9 g/dL 08/08/2015 Comp Metabolic Ykp734 TP RO 6.2 g/dL 08/08/2015 Comp Metabolic Xbm308 GL OB 2.3 g/dL 08/08/2015 Comp Metabolic Tuq984 A/ G Ratio 1.7 Ratio 08/08/2015 Comp Metabolic Rvf478 Os mo 282 mOsmo 08/08/2015 Tsh Ord6 hTSH II 3.19 uIU/mL 08/08/2015 %Hba1C Kbt516 % HbA1c 77868-3 5.7 % 08/08/2015 %Hba1C Wld465 Gluc Ave 117 mg/dL 08/08/2015 Cbc With [...] 31.4 pg 08/08/2015 Cbc With Differential Ord2 Swisher% 10.9 % 08/08/2015 Cbc With Differential Ord2 [...] 1.51 K/ul 08/08/2015 Cbc With Differential Ord2 Swisher ABS# 0.6 K/ul 08/08/2015 Cbc With Differential [...] CPT-4: J3301 08/28/2018 DRAIN/INJECT JOINT/B URSA CPT-4: 24908 08/28/2018 TRIAMCINOLONE ACET I [place] NOS CPT-4: J3301 04/26/2018 DRAIN/INJECT JOINT/B URSA CPT-4: 04/26/2018 DRAIN/INJECT JOINT/B URSA CPT-4: 95046 08/25/2017 PPPS, SUBSEQ VISIT CPT- 4: G0439 05/30/2017 ADMIN INFLUENZA VIRU S VAC CPT-4: G0008 12/21/2016 FLU VACC PRSV FREE I NC ANTIG CPT-4: 10738 12/21/2016 PPPS, SUBSEQ VISIT CPT- 4: G0439 05/21/2016 TRIAMCINOLONE ACET I [place] NOS CPT-4: J3301 04/21/2016 THER/PROPH/DIAG INJ SC/IM CPT-4: 99355 04/21/2016 DRAIN/INJECT JOINT/B URSA CPT-4: 40488 11/13/2015 PNEUMOCOCCAL VACC [address]: 55502945 CPT-4: 71845 11/13/2015 ADMIN PNEUMOCOCCAL V ACCINE SNOMED CT: 07840665 CPT-4: G0009 11/13/2015 ADMIN INFLUENZA VIRU S VAC CPT-4: G0008 11/11/2015 FLU VACC 4 AZUL 3 YRS PLUS IM SNOMED CT: 65383263 CPT-4: 35641 11/11/2015 Vital Signs Date Vital 08/28/2018 Blood Pressure 1: 126/70 Code: 8480-6 BMI: 25.5 Code: 60187-7 Heart Rate 1: 62 bpm Height: 5'7" SpO2: 97% Weight: 163 lbs 05/22/2018 Blood Pressure 1: 130/72 Code: 8480-6 BMI: 25.5 Code: 42558-2 Heart Rate 1: 84 bpm Height: 5'7" SpO2: 96% Weight: 163 lbs 04/26/2018 Blood Pressure 1: 118/56 Code: 8480-6 BMI: 25.5 Code: 79204-5 Heart Rate 1: 60 bpm Height: 5'7" SpO2: 96% Weight: 163 lbs 12/21/2017 Blood Pressure 1: 132/56 Code: 8480-6 BMI: 25.7 Code: 24277-4 Heart Rate 1: 58 bpm Height: 5'7" SpO2: 93% Weight: 164 lbs 08/25/2017 Blood Pressure 1: 126/74 Code: 8480-6 BMI: 26.2 Code: 97559-0 Heart Rate 1: 70 bpm Height: 5'7" SpO2: 94% Weight: 167 lbs 05/30/2017 Blood Pressure 1: 120/66 Code: 8480-6 BMI: 26.6 Code: 16350-4 Heart Rate 1: 66 bpm Height: 5'7" SpO2: 95% Waist Measure (cm): 97 cm Weight: 170 lbs 04/20/2017 Blood Pressure 1: 138/78 Code: 8480-6 BMI: 26.6 Code: 22751-4 Heart Rate 1: 86 bpm Height: 5'7" SpO2: 96% Weight: 170 lbs 01/21/2017 Blood Pressure 1: 136/70 Code: 8480-6 BMI: 26.3 Code: 99352-5 Heart Rate 1: 79 bpm Height: 5'7" SpO2: 95% Weight: 168 lbs 10/22/2016 Blood Pressure 1: 134/72 Code: 8480-6 BMI: 26.3 Code: 36890-2 Heart Rate 1: 70 bpm Height: 5'7" SpO2: 95% Weight: 168 lbs 10/04/2016 Blood Pressure 1: 142/80 Code: 8480-6 BMI: 26.6 Code: 12705-8 Heart Rate 1: 72 bpm Height: 5'7" SpO2: 93% Weight: 170 lbs 06/18/2016 Blood Pressure 1: 132/76 Code: 8480-6 BMI: 26.2 Code: 18916-9 Heart Rate 1: 65 bpm Height: 5'7" SpO2: 95% Weight: 167 lbs 8 oz 05/21/2016 Blood Pressure 1: 126/76 Code: 8480-6 BMI: 26.0 Code: 33451-0 Heart Rate 1: 72 bpm Height: 5'7" SpO2: 98% Weight: 166 lbs 04/29/2016 Blood Pressure 1: 128/70 Code: 8480-6 BMI: 25.7 Code: 95644-0 Heart Rate 1: 67 bpm Height: 5'7" SpO2: 97% Temperature: 36.3 (C ) / 97.4 (F) Weight: 164 lbs 04/21/2016 Blood Pressure 1: 130/62 Code: 8480-6 BMI: 26.3 Code: 51355-3 Heart Rate 1: 74 bpm Height: 5'7" SpO2: 96% Temperature: 37.0 (C ) / 98.6 (F) Weight: 168 lbs 02/20/2016 Blood Pressure 1: 120/64 Code: 8480-6 BMI: 26.2 Code: 51130-6 Heart Rate 1: 65 bpm Height: 5'7" SpO2: 94% Weight: 167 lbs 01/01/2016 Blood Pressure 1: 106/60 Code: 8480-6 BMI: 25.7 Code: 33117-8 Heart Rate 1: 73 bpm Height: 5'7" SpO2: 98% Weight: 164 lbs 11/13/2015 Blood Pressure 1: 122/86 Code: 8480-6 BMI: 25.8 Code: 43977-7 Heart Rate 1: 80 bpm Height: 5'7" SpO2: 92% Weight: 165 lbs 11/07/2015 Blood Pressure 1: 118/64 Code: 8480-6 BMI: 25.8 Code: 71540-8 Heart Rate 1: 66 bpm Height: 5'7" SpO2: 95% Weight: 165 lbs 08/07/2015 Blood Pressure 1: 122/80 Code: 8480-6 BMI: 24.4 Code: 92917-0 Heart Rate 1: 74 bpm Height: 5'7" [...] Encounters Encounter Performer Loca tion Codes Date [id number] EST. PATIENT, LEVEL III Diagnosis: Type 2 diabetes mellitus without complications[ICD10: E11.9] Diagnosis: Essential (primary) hypertension[ICD10: I10] Diagnosis: Pain in right knee[ICD10: M25.561] Diagnosis: Primary generalized (osteo)arthritis[ICD10: M15.0] [facility] CPT-4: 45089 08/28/2018 ([id number]) 21550 EST. P ATIENT, LEVEL III Diagnosis: Pain in left hip[ICD10: M25.552] Diagnosis: Pain in left shoulder[ICD10: M25.512] [facility] CPT-4: 76291 05/22/2018 90623 EST. PATIENT, LEVEL III Diagnosis: Essential (primary) hypertension[ICD10: I10] Diagnosis: Pain in right knee[ICD10: M25.561] Diagnosis: Pain in left shoulder[ICD10: M25.512] [facility] CPT- 4: 19944 04/26/2018 [id number] EST. PATIENT, LEVEL IV Diagnosis: Type 2 diabetes mellitus without complications[ICD10: E11.9] Diagnosis: Essential (primary) hypertension[ICD10: I10] Diagnosis: Pain in right knee[ICD10: M25.561] Lakeisha Hoskins MD, [facility] CPT-4: 83588 12/21/2017 79768 EST. PATIENT, LEVEL IV Diagnosis: Type 2 diabetes mellitus without complications[ICD10: E11.9] Diagnosis: Essential (primary) hypertension[ICD10: I10] Diagnosis: Pain in right knee[ICD10: M25.561] Lakeisha Hoskins MD, [facility] CPT-4: 86885 08/25/2017 21167 EST. PATIENT, LEVEL IV Diagnosis: Type 2 diabetes mellitus without complications[ICD10: E11.9] Diagnosis: Essential (primary) hypertension[ICD10: I10] Lakeisha Hoskins MD, [facility] CPT-4: 33845 04/20/2017 ([id number]) 82257 EST. P ATIENT, LEVEL III Diagnosis: Essential (primary) hypertension[ICD10: I10] Diagnosis: Obstructive sleep apnea (adult) (pediatric)[ICD10: G47.33] Nancy Hoskins MD, [facility] CPT-4: 99342 01/21/2017 ([id number]) 98703 EST. P ATIENT, LEVEL IV Diagnosis: Essential (primary) hypertension[ICD10: I10] Diagnosis: Type 2 diabetes mellitus without complications[ICD10: E11.9] Diagnosis: Obstructive sleep apnea (adult) (pediatric)[ICD10: G47.33] Nancy Hoskins MD, [facility] CPT-4: 27463 10/22/2016 ([id number]) 91823 EST. P ATIENT, LEVEL III Diagnosis: Localized edema[ICD10: R60.0] Diagnosis: Rash and other nonspecific skin eruption[ICD10: R21] Nancy Hoskins MD, [facility] CPT-4: 91235 10/04/2016 ([id number]) 80327 EST. P ATIENT, LEVEL IV Diagnosis: Essential (primary) hypertension[ICD10: I10] Diagnosis: Type 2 diabetes mellitus without complications[ICD10: E11.9] Diagnosis: Mixed hyperlipidemia[ICD10: E78.2] Nancy Hoskins MD, [facility] CPT-4: 17463 06/18/2016 ([id number]) 23662 EST. P ATIENT, LEVEL III Diagnosis: Cough[ICD10: R05] Diagnosis: Acute bronchitis, unspecified[ICD10: J20.9] Nancy Hoskins MD, [facility] CPT-4: 33070 04/29/2016 60047 EST. PATIENT, LEVEL IV Diagnosis: Other acute sinusitis[ICD10: J01.80] Diagnosis: Other allergic rhinitis[ICD10: J30.89] Lakeisha Hoskins MD, [facility] CPT-4: 34908 04/21/2016 ([id number]) 91364 EST. P ATIENT, LEVEL IV Diagnosis: Essential (primary) hypertension[ICD10: I10] Diagnosis: Type 2 diabetes mellitus without complications[ICD10: E11.9] Diagnosis: Mixed hyperlipidemia[ICD10: E78.2] Diagnosis: Primary generalized (osteo)arthritis[ICD10: M15.0] Nancy Hoskins MD, [facility] CPT-4: 25959 02/20/2016 ([id number]) 02605 EST. P ATIENT, LEVEL IV Diagnosis: Cough[ICD10: R05] Diagnosis: Acute bronchitis due to Hemophilus influenzae[ICD10: J20.1] Diagnosis: Type 2 diabetes mellitus without complications[ICD10: E11.9] Diagnosis: Essential (primary) hypertension[ICD10: I10] Charlene Hoskins MD, [facility] CPT-4: 53759 01/01/2016 ([id number]) 08858 EST. P ATIENT, LEVEL IV Diagnosis: Essential (primary) hypertension[ICD10: I10] Diagnosis: Mixed hyperlipidemia[ICD10: E78.2] Diagnosis: Type 2 diabetes mellitus without complications[ICD10: E11.9] Nancy Hoskins MD, [facility] CPT-4: 14116 11/07/2015 OFFICE VISIT, NEW - LEVEL 4 Diagnosis: Type 2 diabetes mellitus without complications[ICD10: E11.9] Diagnosis: Essential (primary) hypertension[ICD10: I10] Diagnosis: Mixed hyperlipidemia[ICD10: E78.2] Diagnosis: Elevated prostate specific antigen [PSA][ICD10: R97.2] Nancy Hoskins MD, [facility] CPT-4: 53019 08/07/2015 Plan of Care Planned Activity Notes [...] glucose control. 08/28/2018 Appointment: Lakeisha Putnam WPtel: [facility] (30 min) Complex 08/28/2018 Patient Education: Patient Medication Summary Completed 08/28/2018 Patient Education: Diabetes Completed 08/28/2018 Appointment: Lakeisha Putnam WPtel: [facility] (15 min) Moderate 08/21/2018 Visit Plan: Left shoulder pain -sta rted six weeks ago after a fall -will get xrays today and proceed as indicated -okay to take tylenol as needed for pain Left hip pain -also started after fall -xray hip today as well 05/22/2018 Appointment: Nancy Tavares WPtel: [phone] [place] (30 min) Complex 05/22/2018 [...] injection. 04/26/2018 Appointment: Lakeisha Putnam WPtel: [phone] [facility] (30 min) Complex 04/26/2018 Patient [...] improve. 12/21/2017 Appointment: Lakeisha Putnam WPtel: [phone] [facility] (15 min) Moderate 12/21/2017 Patient [...] of injection. 08/25/2017 Appointment[facility] ([facility]) Moderate 08/25/2017 Patient Education: Patient [...] Summary Completed 05/30/2017 Appointment: Lake[facility] Putnam [facility] [facility] - Annual Wellness Visit 05/27/2017 Appointment: Nancy Tavares [facility]Pt[phone] (30 min) Complex 04/22/2017 Visit Plan: Hypertension [...] controlled. 04/20/2017 Appointment: [phone] ([facility]) Complex 04/20/2017 Patient Education: Patient [...] CENTER. 01/21/2017 Appointment: Nancy Tavares WPtel: [phone] [phone] (30 min) Complex 01/21/2017 Appointment: [phone] (30 min) Complex 01/21/2017 Patient Education: Patient [...] machine. 10/22/2016 Appointment: Nancy Tavares WPtel: [phone] [phone] (30 min) Complex 10/22/2016 Patient [...] plan. 10/04/2016 Appointment: Nancy Tavares WPtel: [phone] [phone] (15 min) Moderate 10/04/2016 Patient [...] dications. 06/18/2016 Appointment: Nancy Tavares WPtel: [phone] [phone] (15 min) Moderate 06/18/2016 Patient [...] acutely worsen. 04/29/2016 Appointment: Nancy Tavares WPtel: [address] [place] [phone] (15 min) Moderate 04/29/2016 Patient Education: Patient Medication Summary Completed 04/29/2016 Care Plan: CHEST X-RAY 2VW FRONTAL&LATL LOINC : 62887-0 Pending 04/29/2016 Visit Plan: Sinusitis - Pt [...] allergy spray. 04/21/2016 Appointment: Lakeisha Putnam WPtel: [address] [place], [place] [phone] (15 min) Moderate 04/21/2016 Patient Education: Patient [...] placard provided 02/20/2016 Appointment: Nancy Tavares WPtel: [phone] [phone] (30 min) Complex 02/20/2016 Patient [...] less controlled. 01/01/2016 [phone] [place] (15 min) Moderate 01/01/2016 Patient Education: [...] injection. 11/13/2015 Appointment: [phone] (15 min) Moderate 11/13/2015 Patient Education: Patient [...] response to medications. DM-too early for Hgb [id number] to have done next week 11/07/2015 Appointment: [phone] (15 min) Moderate 11/07/2015 Patient Education: Patient [...] biopsy results 08/07/2015 Appointment: Chaitanya [phone] New Patient 08/07/2015 Patient Education: Patient Medication Summary Completed 08/07/2015 Instructions Comment . Bronchitis - acute case of bronchitis [...] readings are starting to become less controlled. COMPRESSION STOCKING S KETOCONAZOLE SHAMPOO THREE TIMES WEEKLY CONTINUE STEROID CREAM ORDERED BY SCRUM COACH CULTURE RASH LEFT AXILLA . Edema - [...] assure normal liver response to medications. . Joint Injection - Pt was given [...] do to get him a new machine. CXR STOP SYMBICORT TWO PUFFS BID . [...] response to medications. DM-too early for Hgb [id number] to have done next week . Sinusitis [...]
--- OUTSIDE RECORDS SUMMARY | 2019-04-11 03:30 | XMS REPORT | CCD ---
Author Author Cesar Tavares Organization Charlene Hoskins MD, [facility] Address [address] [place] [address] Phone Care Team Providers Care Help Desk Supervisor Name Role Phone PP Unavailable CCM Unavailable Summary Purpose Interface Exchange Insurance Providers Payer name Policy type / Coverage type Covered green party ID Effective Begin Date Effective End Date WPS Medicare Part B Medicare Part B [id number] Unknown [facility] Part B [id number] Un known Family history Brother Diagnosis Age At Onset Leukemia Unknown Sister Diagnosis Age At Onset Colon cancer Unknown Father Diagnosis Age At Onset Diabetes mellitus Type 2 Unknown Skin cancer Unknown Brother Diagnosis Age At Onset Asthma Unknown Brother Diagnosis Age At Onset Asthma Unknown Social History Social History Element Codes Description Effective Dates Marital status Unknown M peggyied Ally 08/07/2015 Number of children Unknown 3 08/07/2015 Employment Unknown Retir ed 08/07/[address]: 9407848 Quit over 10 years ago 1970 08/07/[address]: 019205772 Never drinks alcohol 08/07/2015 Allergies, Adverse Reactions, Alerts Substance Reaction Codes Entered Date Inactivated Date Status Penicillin Unknown 08/07/2015 No In active Date Active Past Medical History Illness Codes Condition Status Onset Date Resolved Date Essential (primary) hypertension ICD-9: 401.1 ICD-10: I10 [...] Condition Codes Effectiv e Dates Condition Status Essential (primary) hypertension ICD-9: 401.1 ICD-10: I10 [...] 40 mg/mL maggie pension for injection RxNorm: 5937029 1 Milliliter(s) Inj 08/28/2018 08/28/2018 In active losartan 50 mg tablet RxNorm: 217006 1 Tablet(s) PO daily TAKE 1 TABLET BY MO UTH ONCE DAILY 07/25/2018 01/20/2019 Active meloxicam 7.5 mg tablet RxNorm: 659984 TAKE 1 TABLET BY MOUTH ONCE DAILY 06/01/2018 No Stop Date Active Advair Diskus 250 mc g-50 mcg/dose powder for inhalation RxNorm: 3749838 INHALE 1 DOSE BY MOUTH TWICE DAILY 05/22/2018 No Stop Date Active fluticasone propiona te 50 mcg/actuation nasal spray,suspension RxNorm: 6776131 USE 2 SPRAY(S) IN EACH NOSTRIL ONCE DAILY 05/17/2018 No Stop Date Active simvastatin 20 mg ta blet RxNorm: 972346 TAKE 1 TABLET BY MOUT H ONCE DAILY 05/16/2018 No Stop Date Active Kenalog 40 mg/mL maggie pension for injection RxNorm: 5622191 1 Milliliter(s) Inj 04/26/2018 04/26/2018 In active Kenalog 40 mg/mL maggie pension for injection RxNorm: 0361862 1 Milliliter(s) Inj 04/26/2018 04/26/2018 In active losartan 50 mg tablet RxNorm: 352411 TAKE 1 TABLET BY MOUTH ONCE DAILY 04/24/2018 07/24/2018 In active fluticasone propiona te 50 mcg/actuation nasal spray,suspension RxNorm: 0463786 USE 2 SPRAY(S) IN EACH NOSTRIL ONCE DAILY 03/27/2018 05/16/2018 Inactive Advair Diskus 250 mc g-50 mcg/dose powder for inhalation RxNorm: 8194262 INHALE 1 DOSE BY MOUTH TWICE DAILY 03/21/2018 05/21/2018 Inactive montelukast 10 mg ta blet RxNorm: 630157 TAKE ONE TABLET BY MO UTH ONCE DAILY 03/15/2018 No Stop Date Active Advair Diskus 250 mc g-50 mcg/dose powder for inhalation RxNorm: 0251200 INHALE 1 DOSE BY MOUTH TWICE DAILY 02/20/2018 03/20/2018 Inactive fluticasone 50 mcg/a ctuation nasal spray,suspension RxNorm: 2788335 USE 2 SPRAY(S) IN EACH NOSTRIL ONCE DAILY 02/08/2018 03/26/2018 Inactive metformin 500 mg tablet RxNorm: 240804 TAKE 1 TABLET BY MOUTH ONCE DAILY 01/16/2018 No Stop Date Active Advair Diskus 250 mc g-50 mcg/dose powder for inhalation RxNorm: 7995310 INHALE 1 DOSE BY MOUTH TWICE DAILY 12/19/2017 02/19/2018 Inactive meloxicam 7.5 mg tablet RxNorm: 581428 TAKE 1 TABLET BY MOUTH ONCE DAILY 12/01/2017 05/31/2018 In active simvastatin 20 mg ta blet RxNorm: 478222 TAKE 1 TABLET BY MOUT H ONCE DAILY 11/14/2017 05/15/2018 In active losartan 50 mg tablet RxNorm: 503377 TAKE ONE TABLET BY MOUTH ONCE DAILY 10/27/2017 04/23/2018 In active Advair Diskus 250 mc g-50 mcg/dose powder for inhalation RxNorm: 6859900 INHALE 1 DOSE BY MOUTH TWICE DAILY 10/19/2017 12/18/2017 Inactive fluticasone 50 mcg/a ctuation nasal spray,suspension RxNorm: 9862557 USE TWO SPRAY(S) IN EACH NOSTRIL ONCE DAILY 10/19/2017 02/07/2018 Inactive Kenalog 40 mg/mL maggie pension for injection RxNorm: 9581423 1 Milliliter(s) Inj 08/25/2017 08/25/2017 In active meloxicam 7.5 mg tablet RxNorm: 610559 TAKE ONE TABLET BY MOUTH ONCE DAILY 06/06/2017 11/30/2017 In active simvastatin 20 mg ta blet RxNorm: 287452 TAKE ONE TABLET BY MO UTH ONCE DAILY 05/17/2017 11/13/2017 In active metformin 500 mg tablet RxNorm: 306999 TAKE ONE TABLET BY MOUTH ONCE DAILY 05/05/2017 01/15/2018 In active Advair Diskus 250 mc g-50 mcg/dose powder for inhalation RxNorm: 9412103 INHALE ONE DOSE BY MOUTH TWICE DAILY 04/19/2017 10/18/2017 Inactive Tamiflu 75 mg capsule RxNorm: 130868 1 Capsule(s) PO daily 03/25/2017 03/24/2017 Inactive Tamiflu 75 mg capsule RxNorm: 415976 1 Capsule(s) PO daily 03/25/2017 03/31/2017 Inactive montelukast 10 mg ta blet RxNorm: 165116 TAKE ONE TABLET BY MO [facility] ONCE DAILY 03/21/2017 03/14/2018 In active losartan 50 mg tablet RxNorm: 683039 TAKE ONE TABLET BY MOUTH ONCE DAILY 01/27/2017 10/26/2017 In active fluticasone 50 mcg/a ctuation nasal spray,suspension RxNorm: 9981715 USE TWO SPRAY(S) IN EACH NOSTRIL ONCE DAILY 01/17/2017 10/18/2017 Inactive meloxicam 7.5 mg tablet RxNorm: 999837 TAKE ONE TABLET BY MOUTH ONCE DAILY 12/06/2016 06/03/2017 In active metformin 500 mg tablet RxNorm: 951434 Tablet(s) TAKE ONE TABLET BY MOUTH TWICE DAILY 11/30/2016 11/24/2017 Inactive simvastatin 20 mg ta blet RxNorm: 859702 TAKE ONE TABLET BY [facility] ONCE DAILY 11/15/2016 05/13/2017 In active Advair Diskus 250 mc g-50 mcg/dose powder for inhalation RxNorm: 4431636 INHALE ONE PUFF BY MOUTH TWICE DAILY 10/22/2016 04/18/2017 Inactive [facility] RxNorm: 986544 1 Application TOP TIW 10/04/2016 10/17/2016 Inactive fluticasone 50 mcg/a ctuation nasal spray,suspension RxNorm: 6402505 USE TWO SPRAY(S) IN EACH NOSTRIL ONCE DAILY 09/21/2016 11/19/2016 Inactive montelukast 10 mg ta blet RxNorm: 814872 TAKE ONE TABLET BY MO UTH ONCE DAILY 09/21/2016 03/19/2017 In active losartan 50 mg tablet RxNorm: 892097 TAKE ONE TABLET BY MOUTH ONCE DAILY 08/02/2016 01/26/2017 In active metformin 500 mg tablet RxNorm: 195299 TAKE ONE TABLET BY MOUTH TWICE DAILY 07/22/2016 10/19/2016 In active furosemide 20 mg tablet RxNorm: 005285 1 Tablet(s) PO daily as needed for swell ing 07/21/2016 04/18/2018 Inactive meloxicam 7.5 mg tablet RxNorm: 135154 TAKE ONE TABLET BY MOUTH ONCE DAILY 06/08/2016 12/04/2016 In active cefdinir 300 mg capsule RxNorm: 577374 1 Capsule(s) PO BID 04/29/2016 05/05/2016 Inactive prednisone 20 mg tablet RxNorm: 094700 1 Tablet(s) PO BID 04/29/2016 05/03/2016 Inactive Zithromax Z-Sherif 250 mg tablet RxNorm: 101267 1 Tablet(s) PO UD 04/21/2016 04/28/2016 Inactive Kenalog 40 mg/mL maggie pension for injection RxNorm: 1329960 1 Milliliter(s) Inj 04/21/2016 04/21/2016 In active montelukast 10 mg ta blet RxNorm: 489041 TAKE ONE TABLET BY MO [facility] ONCE DAILY 03/22/2016 09/17/2016 In active fluticasone 50 mcg/a ctuation nasal spray,suspension RxNorm: 1088981 2 [employer] NASAL daily each nare 03/15/2016 07/12/2016 Inactive qs metformin 500 mg tablet RxNorm: 381651 1 Tablet(s) PO daily 01/16/2016 2016 Inactive Patient does not need a refill- just upd ate dosing Advair Diskus 250 mc g-50 mcg/dose powder for inhalation RxNorm: 8170297 1 INH BID 01/01/2016 04/29/2016 In active Advair Diskus 250 mc g-50 mcg/dose powder for inhalation RxNorm: 6005279 1 INH daily 01/01/2016 12/31/2015 Inactive metformin 500 mg tablet RxNorm: 218440 1 Tablet(s) PO daily 01/01/2016 01/15/2016 Inactive simvastatin 40 mg ta blet RxNorm: 422084 1 Tablet(s) PO daily 01/01/2016 04/17/2018 Inactive azithromycin 250 mg tablet RxNorm: 695592 1 Tablet(s) PO take t wo pills on day #1, then one pill daily x 4 more days 01/01/2016 02/17/2016 Inactive meloxicam 7.5 mg tablet RxNorm: 421440 1 Tablet(s) PO daily 12/11/2015 06/07/2016 Inactive simvastatin 20 mg ta blet RxNorm: 151738 1 Tablet(s) PO daily 11/21/2015 12/31/2015 Inactive metformin 500 mg tablet RxNorm: 651623 1 Tablet(s) PO BID 11/21/2015 12/31/2015 Inactive Advair Diskus 250 mc g-50 mcg/dose powder for inhalation RxNorm: 0522452 1 INH BID 11/21/2015 12/31/2015 In active montelukast 10 mg ta blet RxNorm: 562938 1 Tablet(s) PO daily 09/25/2015 03/21/2016 Inactive losartan 50 mg tablet RxNorm: 124779 1 Tablet(s) PO daily 09/04/2015 08/01/2016 Inactive Restasis 0.05 % eye drops in a dropperette RxNorm: 265293 1 gtts OPH BID 08/07/2015 No Stop Date Active meloxicam 7.5 mg tablet RxNorm: 687256 1 Tablet(s) PO daily 08/07/2015 09/05/2015 Inactive Kay oral RxNorm: 025961 oral No Start Date Active finasteride 5 mg tablet RxNorm: 870833 1 Tablet(s) PO daily No Start Date Active Zyrtec 10 mg tablet RxNorm: 0378131 1 Tablet(s) PO daily No Start Date Active Co Q-10 200 mg capsule RxNorm: 276477 1 Capsule(s) PO daily No Start Date Active Calcium 500 + D (D3) oral RxNorm: 188288 oral No S tart Date Active simethicone 125 mg c apsule RxNorm: 063854 Capsule(s) PO as needed No Start Date Active Vitamin D3 1,000 uni t tablet RxNorm: 170937 1 Tablet(s) PO daily No Start Date Active omega-3 fatty acids 1,000 mg capsule RxNorm: 4 Capsule(s) PO daily No Start Date Active triamcinolone aceton chasity 0.1 % topical cream RxNorm: 7289755 1 TOP UD No Start Date Active fluticasone 50 mcg/a ctuation nasal spray,suspension RxNorm: 2793071 2 [employer] NASAL daily each nare No Start Date 03/14/2016 Inactive losartan 50 mg tablet RxNorm: 117332 1 Tablet(s) PO daily No Start Date 09/03/2015 Inactive metformin 500 mg tablet RxNorm: 988763 1 Tablet(s) PO daily No Start Date 11/20/2015 Inactive simvastatin 40 mg ta blet RxNorm: 475380 1 Tablet(s) PO daily No Start Date 11/20/2015 Inactive furosemide 20 mg tablet RxNorm: 747105 1 Tablet(s) PO daily as needed No Start Date 07/20/2016 Inactive Advair Diskus 250 mc g-50 mcg/dose powder for inhalation RxNorm: 2889948 1 INH daily No Start Date 11/20/2015 Inactive Multiple Vitamin oral RxNorm: 58214 oral No Start Date 12/31/2015 Inactive montelukast 10 mg ta blet RxNorm: 266780 1 Tablet(s) PO daily No Start Date 09/24/2015 Inactive Medication Administered Medication Codes Instruc tions Start Date Status Kenalog 40 mg/mL suspension for injection RxNorm: 6782843 liter 08/28/2018 N o longer Active Kenalog 40 mg/mL suspension for injection RxNorm: 2602198 1Milliliter 04/26/2018 N o longer Active Kenalog 40 mg/mL suspension for injection RxNorm: 6027835 1Milliliter 04/26/2018 N o longer Active Kenalog 40 mg/mL suspension for injection RxNorm: 3482482 1Milliliter 08/25/2017 N o longer Active Kenalog 40 mg/mL suspension for injection RxNorm: 4997165 1Milliliter 04/21/2016 N o longer Active Immunizations Vaccine Codes Date Status SHINGARIX CVX: 121 06/13 completed Influenza CVX: 141 12/21 completed Influenza CVX: 141 12/21 completed Pneumococcal (Adult) CVX: 133 11/13/2015 completed Influenza CVX: 141 11/10 completed Pneumococcal CVX: 33 completed Zoster CVX: 121 02/14/20 13 completed Assessments Condition Codes Effectiv e Dates Essential (primary) hypertension ICD -10: I10 ICD-9: [...] 32.4 pg 08/28/2018 Cbc With Differential Ord2 [place]% 10.1 % 08/28/2018 Cbc With Differential Ord2 [...] 2.05 K/ul 08/28/2018 Cbc With Differential Ord2 [place] ABS# 0.9 K/ul 08/28/2018 Cbc With Differential Ord2 Eos ABS# 0.5 K/ul 08/28/2018 Cbc With Differential Ord2 Baso ABS# 0.0 K/ul 08/28/2018 %Hba1C Dwe939 % HbA1c 55297-7 5.8 % 08/28/2018 %Hba1C Zla016 Gluc Ave 120 mg/dL 08/28/2018 Comp Metabolic Vnb762 NA 141 mEq/L 08/28/2018 Comp Metabolic Oua557 K 4.3 mEq/L 08/28/2018 Comp Metabolic Ugw574 CL 105 mEq/L 08/28/2018 Comp Metabolic Usq320 CO2 28.0 mEq/L 08/28/2018 Comp Metabolic Gzb193 AN ION GAP 12 08/28/2018 Comp Metabolic Crp598 GL UCOSE 101 mg/dL 08/28/2018 Comp Metabolic Gsu574 Cr eat 0.9 mg/dL 08/28/2018 Comp Metabolic Kbr752 eG FR 89 ml/min/1.73m2 08/28 Comp Metabolic Ihk341 BUN 26 mg/dL 08/28/2018 Comp Metabolic Mjf135 B/ C Ratio 29.9 Ratio 08/28/2018 Comp Metabolic Pmz285 CA LCIUM 9.4 mg/dL 08/28/2018 Comp Metabolic Xsy565 AL K PHOS 60 U/L 08/28/2018 Comp Metabolic Xkh057 T(SGOT) 17 U/L 08/28/2018 Comp Metabolic Mrb588 AL T(SGPT) 27 U/L 08/28/2018 Comp Metabolic Hca645 BI LI T 0.6 mg/dL 08/28/2018 Comp Metabolic Vao447 AL BUMIN 4.2 g/dL 08/28/2018 Comp Metabolic Sou767 TP RO 6.6 g/dL 08/28/2018 Comp Metabolic Fdl794 GL OB 2.4 g/dL 08/28/2018 Comp Metabolic Qly464 A/ G Ratio 1.7 Ratio 08/28/2018 Comp Metabolic Dtl856 Os mo 286 mOsmo 08/28/2018 %Hba1C Rej896 % HbA1c 79185-1 6.0 % 12/21/2017 %Hba1C Knm625 Gluc Ave 126 mg/dL 12/21/2017 %Hba1C Nws442 % HbA1c 47824-1 6.2 % 04/20/2017 %Hba1C Ezh063 Gluc Ave 131 mg/dL 04/20/2017 Cbc With [...] 31.8 pg 04/20/2017 Cbc With Differential Ord2 [place]% 9.3 % 04/20/2017 Cbc With Differential Ord2 [...] 1.82 K/ul 04/20/2017 Cbc With Differential Ord2 [place] ABS# 0.6 K/ul 04/20/2017 Cbc With Differential Ord2 Eos ABS# 0.2 K/ul 04/20/2017 Cbc With Differential Ord2 Baso ABS# 0.0 K/ul 04/20/2017 Comp Metabolic Tdz082 NA 141 mEq/L 04/20/2017 Comp Metabolic Tyj537 K 4.5 mEq/L 04/20/2017 Comp Metabolic Jjy883 CL 106 mEq/L 04/20/2017 Comp Metabolic Mgv928 CO2 27.0 mEq/L 04/20/2017 Comp Metabolic Xbu441 AN ION GAP 13 04/20/2017 Comp Metabolic Fpt352 GL UCOSE 109 mg/dL 04/20/2017 Comp Metabolic Xuh425 Cr eat 1.0 mg/dL 04/20/2017 Comp Metabolic Fmt316 eG FR 81 ml/min/1.73m2 04/20 Comp Metabolic Nzr303 BUN 23 mg/dL 04/20/2017 Comp Metabolic Rpd293 B/ C Ratio 24.2 Ratio 04/20/2017 Comp Metabolic Nur058 CA LCIUM 9.3 mg/dL 04/20/2017 Comp Metabolic Naw114 AL K PHOS 82 U/L 04/20/2017 Comp Metabolic Jit784 T(SGOT) 22 U/L 04/20/2017 Comp Metabolic Bom598 AL T(SGPT) 24 U/L 04/20/2017 Comp Metabolic Tqx907 BI LI T 0.4 mg/dL 04/20/2017 Comp Metabolic Boo599 AL BUMIN 4.3 g/dL 04/20/2017 Comp Metabolic Rjb664 TP RO 6.8 g/dL 04/20/2017 Comp Metabolic Dtw333 GL OB 2.5 g/dL 04/20/2017 Comp Metabolic Qgr012 A/ G Ratio 1.7 Ratio 04/20/2017 Comp Metabolic Unc630 Os mo 286 mOsmo 04/20/2017 %Hba1C Bdp692 % HbA1c 04097-0 5.8 % 10/22/2016 %Hba1C Kor797 Gluc Ave 120 mg/dL 10/22/2016 Cbc With [...] 32.5 pg 10/22/2016 Cbc With Differential Ord2 [place]% 10.3 % 10/22/2016 Cbc With Differential Ord2 [...] 1.85 K/ul 10/22/2016 Cbc With Differential Ord2 [place] ABS# 0.8 K/ul 10/22/2016 Cbc With Differential Ord2 Eos ABS# 0.3 K/ul 10/22/2016 Cbc With Differential Ord2 Baso ABS# 0.0 K/ul 10/22/2016 Comp Metabolic Ohb908 NA 141 mEq/L 10/22/2016 Comp Metabolic Xrj662 K 4.4 mEq/L 10/22/2016 Comp Metabolic Btd445 CL 105 mEq/L 10/22/2016 Comp Metabolic Iif318 CO2 27.0 mEq/L 10/22/2016 Comp Metabolic Qws470 AN ION GAP 13 10/22/2016 Comp Metabolic Ieq558 GL UCOSE 103 mg/dL 10/22/2016 Comp Metabolic Pas429 Cr eat 1.0 mg/dL 10/22/2016 Comp Metabolic Uja866 eG FR 76 ml/min/1.73m2 10/22 Comp Metabolic Ldb450 BUN 27 mg/dL 10/22/2016 Comp Metabolic Stw650 B/ C Ratio 27.0 Ratio 10/22/2016 Comp Metabolic Bxf701 CA LCIUM 9.3 mg/dL 10/22/2016 Comp Metabolic Lpc020 AL K PHOS 72 U/L 10/22/2016 Comp Metabolic Tol614 T(SGOT) 23 U/L 10/22/2016 Comp Metabolic Krq169 AL T(SGPT) 26 U/L 10/22/2016 Comp Metabolic Srh142 BI LI T 0.4 mg/dL 10/22/2016 Comp Metabolic Bcu930 AL BUMIN 4.2 g/dL 10/22/2016 Comp Metabolic Epk576 TP RO 6.7 g/dL 10/22/2016 Comp Metabolic Cbk380 GL OB 2.5 g/dL 10/22/2016 Comp Metabolic Sai978 A/ G Ratio 1.6 Ratio 10/22/2016 Comp Metabolic Bli915 Os mo 287 mOsmo 10/22/2016 Comp Metabolic Qqs919 NA 143 mEq/L 06/17/2016 Comp Metabolic Nbz856 K 4.1 mEq/L 06/17/2016 Comp Metabolic Epk657 CL 108 mEq/L 06/17/2016 Comp Metabolic Msm456 CO2 28.0 mEq/L 06/17/2016 Comp Metabolic Hqu639 AN ION GAP 11 06/17/2016 Comp Metabolic Qwb394 GL UCOSE 106 mg/dL 06/17/2016 Comp Metabolic Uhr164 Cr eat 0.9 mg/dL 06/17/2016 Comp Metabolic Lka207 eG FR 92 ml/min/1.73m2 06/17 Comp Metabolic Oga828 BUN 22 mg/dL 06/17/2016 Comp Metabolic Lsm073 B/ C Ratio 25.9 Ratio 06/17/2016 Comp Metabolic Vlg756 CA LCIUM 8.8 mg/dL 06/17/2016 Comp Metabolic Yyx630 AL K PHOS 55 U/L 06/17/2016 Comp Metabolic Tzy920 T(SGOT) 21 U/L 06/17/2016 Comp Metabolic Upz825 AL T(SGPT) 24 U/L 06/17/2016 Comp Metabolic Alf166 BI LI T 0.6 mg/dL 06/17/2016 Comp Metabolic Thr645 AL BUMIN 4.0 g/dL 06/17/2016 Comp Metabolic Ugx024 TP RO 6.2 g/dL 06/17/2016 Comp Metabolic Hwr723 GL OB 2.2 g/dL 06/17/2016 Comp Metabolic Qcg573 A/ G Ratio 1.8 Ratio 06/17/2016 Comp Metabolic Uzz432 Os mo 289 mOsmo 06/17/2016 Lipid Ord30 CHOL 163 mg/dL 06/17/2016 Lipid Ord30 HDL 54.0 mg/dl 06/17/2016 Lipid Ord30 TRIG 133 mg/dL 06/17/2016 Lipid Ord30 LDL 82 mg/dL 06/17/2016 Lipid Ord30 C/HDL 3.0 Ratio 06/17/2016 %Hba1C Xyd755 % HbA1c 74757-7 6.0 % 06/17/2016 %Hba1C Axz249 Gluc Ave 126 mg/dL 06/17/2016 Total Psa [...] 32.7 pg 06/17/2016 Cbc With Differential Ord2 [place]% 10.7 % 06/17/2016 Cbc With Differential Ord2 [...] 1.71 K/ul 06/17/2016 Cbc With Differential Ord2 [place] ABS# 0.6 K/ul 06/17/2016 Cbc With Differential Ord2 Eos ABS# 0.2 K/ul 06/17/2016 Cbc With Differential Ord2 Baso ABS# 0.0 K/ul 06/17/2016 Tsh Ord6 hTSH II 2.91 uIU/mL 06/17/2016 Tsh Ord6 hTSH II 2.45 uIU/mL 02/19/2016 %Hba1C Thp369 % HbA1c 93389-2 5.8 % 02/19/2016 %Hba1C Yjp418 Gluc Ave 120 mg/dL 02/19/2016 Comp Metabolic Ani077 NA 141 mEq/L 02/19/2016 Comp Metabolic Zjk009 K 4.2 mEq/L 02/19/2016 Comp Metabolic Cmb100 CL 107 mEq/L 02/19/2016 Comp Metabolic Ukq820 CO2 29.0 mEq/L 02/19/2016 Comp Metabolic Plp760 AN ION GAP 9 02/19/2016 Comp Metabolic Wzv060 GL UCOSE 106 mg/dL 02/19/2016 Comp Metabolic Jbj296 Cr eat 0.9 mg/dL 02/19/2016 Comp Metabolic Swu699 eG FR 90 ml/min/1.73m2 02/18 Comp Metabolic Lvk348 BUN 24 mg/dL 02/19/2016 Comp Metabolic Yoi129 B/ C Ratio 27.6 Ratio 02/19/2016 Comp Metabolic Dtj484 CA LCIUM 9.1 mg/dL 02/19/2016 Comp Metabolic Gph842 AL K PHOS 67 U/L 02/19/2016 Comp Metabolic Qrj240 T(SGOT) 25 U/L 02/19/2016 Comp Metabolic Meb969 AL T(SGPT) 31 U/L 02/19/2016 Comp Metabolic Vbm729 BI LI T 0.6 mg/dL 02/19/2016 Comp Metabolic Nvg955 AL BUMIN 4.1 g/dL 02/19/2016 Comp Metabolic Lqu523 TP RO 6.5 g/dL 02/19/2016 Comp Metabolic Ipw405 GL OB 2.4 g/dL 02/19/2016 Comp Metabolic Hos864 A/ G Ratio 1.7 Ratio 02/19/2016 Comp Metabolic Ein636 Os mo 286 mOsmo 02/19/2016 Cbc With [...] 31.7 pg 02/19/2016 Cbc With Differential Ord2 [place]% 10.5 % 02/19/2016 Cbc With Differential Ord2 [...] 1.59 K/ul 02/19/2016 Cbc With Differential Ord2 [place] ABS# 0.6 K/ul 02/19/2016 Cbc With Differential Ord2 Eos ABS# 0.3 K/ul 02/19/2016 Cbc With Differential Ord2 Baso ABS# 0.0 K/ul 02/19/2016 Lipid Ord30 CHOL 174 mg/dL 02/19/2016 Lipid Ord30 HDL 54.0 mg/dl 02/19/2016 Lipid Ord30 TRIG 110 mg/dL 02/19/2016 Lipid Ord30 LDL 98 mg/dL 02/19/2016 Lipid Ord30 C/HDL 3.2 Ratio 02/19/2016 %Hba1C Npk898 % HbA1c 97857-6 6.0 % 11/11/2015 %Hba1C Pch734 Gluc Ave 126 mg/dL 11/11/2015 %Hba1C Gxo331 % HbA1c 95488-5 6.0 % 11/07/2015 %Hba1C Pfi469 Gluc Ave 126 mg/dL 11/07/2015 Cbc With [...] 32.0 pg 11/06/2015 Cbc With Differential Ord2 [place]% 9.5 % 11/06/2015 Cbc With Differential Ord2 [...] 1.79 K/ul 11/06/2015 Cbc With Differential Ord2 [place] ABS# 0.6 K/ul 11/06/2015 Cbc With Differential Ord2 Eos ABS# 0.3 K/ul 11/06/2015 Cbc With Differential Ord2 Baso ABS# 0.0 K/ul 11/06/2015 Comp Metabolic Fpq010 NA 141 mEq/L 11/06/2015 Comp Metabolic Cuv152 K 4.3 mEq/L 11/06/2015 Comp Metabolic Rqy500 CL 107 mEq/L 11/06/2015 Comp Metabolic Hgh908 CO2 28.0 mEq/L 11/06/2015 Comp Metabolic Hag215 AN ION GAP 10 11/06/2015 Comp Metabolic Eag440 GL UCOSE 117 mg/dL 11/06/2015 Comp Metabolic Efb630 Cr eat 0.9 mg/dL 11/06/2015 Comp Metabolic Vda959 eG FR 88 ml/min/1.73m2 11/05 Comp Metabolic Qzd498 BUN 22 mg/dL 11/06/2015 Comp Metabolic Jfz797 B/ C Ratio 25.0 Ratio 11/06/2015 Comp Metabolic Vvd263 CA LCIUM 9.1 mg/dL 11/06/2015 Comp Metabolic Enr606 AL K PHOS 59 U/L 11/06/2015 Comp Metabolic Dwt488 T(SGOT) 23 U/L 11/06/2015 Comp Metabolic Bio842 AL T(SGPT) 26 U/L 11/06/2015 Comp Metabolic Rdq927 BI LI T 0.6 mg/dL 11/06/2015 Comp Metabolic Tqf507 AL BUMIN 4.0 g/dL 11/06/2015 Comp Metabolic Xnf340 TP RO 6.4 g/dL 11/06/2015 Comp Metabolic Blx600 GL OB 2.4 g/dL 11/06/2015 Comp Metabolic Rmj836 A/ G Ratio 1.7 Ratio 11/06/2015 Comp Metabolic Aht072 Os mo 286 mOsmo 11/06/2015 Tsh Ord6 hTSH II 2.59 uIU/mL 11/06/2015 Lipid Ord30 CHOL 159 mg/dL 11/06/2015 Lipid Ord30 HDL 42.0 mg/dl 11/06/2015 Lipid Ord30 TRIG 129 mg/dL 11/06/2015 Lipid Ord30 LDL 91 mg/dL 11/06/2015 Lipid Ord30 C/HDL 3.8 Ratio 11/06/2015 Comp Metabolic Zxx010 NA 140 mEq/L 08/08/2015 Comp Metabolic Dxu019 K 4.0 mEq/L 08/08/2015 Comp Metabolic Unn628 CL 108 mEq/L 08/08/2015 Comp Metabolic Nfo522 CO2 25.0 mEq/L 08/08/2015 Comp Metabolic Dvs577 AN ION GAP 11 08/08/2015 Comp Metabolic Njd600 GL UCOSE 100 mg/dL 08/08/2015 Comp Metabolic Kcz376 Cr eat 0.9 mg/dL 08/08/2015 Comp Metabolic Fun619 eG FR 82 ml/min/1.73m2 08/07 Comp Metabolic Pne887 BUN 19 mg/dL 08/08/2015 Comp Metabolic Wwm166 B/ C Ratio 20.2 Ratio 08/08/2015 Comp Metabolic Ojo433 CA LCIUM 8.5 mg/dL 08/08/2015 Comp Metabolic Ito627 AL K PHOS 56 U/L 08/08/2015 Comp Metabolic Dmr083 T(SGOT) 18 U/L 08/08/2015 Comp Metabolic Xuf525 AL T(SGPT) 17 U/L 08/08/2015 Comp Metabolic Frp925 BI LI T 0.7 mg/dL 08/08/2015 Comp Metabolic Oib418 AL BUMIN 3.9 g/dL 08/08/2015 Comp Metabolic Cot101 TP RO 6.2 g/dL 08/08/2015 Comp Metabolic Fth664 GL OB 2.3 g/dL 08/08/2015 Comp Metabolic Ixu052 A/ G Ratio 1.7 Ratio 08/08/2015 Comp Metabolic Txx893 Os mo 282 mOsmo 08/08/2015 Tsh Ord6 hTSH II 3.19 uIU/mL 08/08/2015 %Hba1C Hoc434 % HbA1c 59867-0 5.7 % 08/08/2015 %Hba1C Fqu838 Gluc Ave 117 mg/dL 08/08/2015 Cbc With [...] 31.4 pg 08/08/2015 Cbc With Differential Ord2 [place]% 10.9 % 08/08/2015 Cbc With Differential Ord2 [...] 1.51 K/ul 08/08/2015 Cbc With Differential Ord2 [place] ABS# 0.6 K/ul 08/08/2015 Cbc With Differential [...] sounds 04/20/2017 None Full Exam - General 1995 Lymphatic neck nodes Overall: anterior cervical chain benign 04/20/2017 None Full Exam - General 1995 Lymphatic neck nodes Overall: posterior cervical chain [...] CPT-4: J3301 08/28/2018 DRAIN/INJECT JOINT/B URSA CPT-4: 28291 08/28/2018 TRIAMCINOLONE ACET I [place] NOS CPT-4: J3301 04/26/2018 DRAIN/INJECT JOINT/B URSA CPT-4: 55093 04/26/2018 DRAIN/INJECT JOINT/B URSA CPT-4: 22143 08/25/2017 PPPS, SUBSEQ VISIT CPT- 4: G0439 05/30/2017 ADMIN INFLUENZA VIRU S VAC CPT-4: G0008 12/21/2016 FLU VACC PRSV FREE I NC ANTIG CPT-4: 96350 12/21/2016 PPPS, SUBSEQ VISIT CPT- 4: G0439 05/21/2016 TRIAMCINOLONE ACET I [place] NOS CPT-4: J3301 04/21/2016 THER/PROPH/DIAG INJ SC/IM CPT-4: 03308 04/21/2016 DRAIN/INJECT JOINT/B URSA CPT-4: 16049 11/13/2015 PNEUMOCOCCAL VACC [address]: [id number] CPT-4: 24563 11/13/2015 ADMIN PNEUMOCOCCAL V ACCINE SNOMED CT: 56051323 CPT-4: G0009 11/13/2015 ADMIN INFLUENZA VIRU S VAC CPT-4: G0008 11/11/2015 FLU VACC 4 AZUL 3 YRS PLUS IM SNOMED CT: 57875227 CPT-4: 85978 11/11/2015 Vital Signs Date Vital 08/28/2018 Blood Pressure 1: 126/70 Code: 8480-6 BMI: 25.5 Code: 99628-0 Heart Rate 1: 62 bpm Height: 5'7" SpO2: 97% Weight: 163 lbs 05/22/2018 Blood Pressure 1: 130/72 Code: 8480-6 BMI: 25.5 Code: 00610-5 Heart Rate 1: 84 bpm Height: 5'7" SpO2: 96% Weight: 163 lbs 04/26/2018 Blood Pressure 1: 118/56 Code: 8480-6 BMI: 25.5 Code: 44777-3 Heart Rate 1: 60 bpm Height: 5'7" SpO2: 96% Weight: 163 lbs 12/21/2017 Blood Pressure 1: 132/56 Code: 8480-6 BMI: 25.7 Code: 57271-9 Heart Rate 1: 58 bpm Height: 5'7" SpO2: 93% Weight: 164 lbs 08/25/2017 Blood Pressure 1: 126/74 Code: 8480-6 BMI: 26.2 Code: 84340-3 Heart Rate 1: 70 bpm Height: 5'7" SpO2: 94% Weight: 167 lbs 05/30/2017 Blood Pressure 1: 120/66 Code: 8480-6 BMI: 26.6 Code: 17202-2 Heart Rate 1: 66 bpm Height: 5'7" SpO2: 95% Waist Measure (cm): 97 cm Weight: 170 lbs 04/20/2017 Blood Pressure 1: 138/78 Code: 8480-6 BMI: 26.6 Code: 52756-5 Heart Rate 1: 86 bpm Height: 5'7" SpO2: 96% Weight: 170 lbs 01/21/2017 Blood Pressure 1: 136/70 Code: 8480-6 BMI: 26.3 Code: 33986-9 Heart Rate 1: 79 bpm Height: 5'7" SpO2: 95% Weight: 168 lbs 10/22/2016 Blood Pressure 1: 134/72 Code: 8480-6 BMI: 26.3 Code: 80059-6 Heart Rate 1: 70 bpm Height: 5'7" SpO2: 95% Weight: 168 lbs 10/04/2016 Blood Pressure 1: 142/80 Code: 8480-6 BMI: 26.6 Code: 70485-7 Heart Rate 1: 72 bpm Height: 5'7" SpO2: 93% Weight: 170 lbs 06/18/2016 Blood Pressure 1: 132/76 Code: 8480-6 BMI: 26.2 Code: 79289-7 Heart Rate 1: 65 bpm Height: 5'7" SpO2: 95% Weight: 167 lbs 8 oz 05/21/2016 Blood Pressure 1: 126/76 Code: 8480-6 BMI: 26.0 Code: 91835-9 Heart Rate 1: 72 bpm Height: 5'7" SpO2: 98% Weight: 166 lbs 04/29/2016 Blood Pressure 1: 128/70 Code: 8480-6 BMI: 25.7 Code: 05130-3 Heart Rate 1: 67 bpm Height: 5'7" SpO2: 97% Temperature: 36.3 (C ) / 97.4 (F) Weight: 164 lbs 04/21/2016 Blood Pressure 1: 130/62 Code: 8480-6 BMI: 26.3 Code: 09483-5 Heart Rate 1: 74 bpm Height: 5'7" SpO2: 96% Temperature: 37.0 (C ) / 98.6 (F) Weight: 168 lbs 02/20/2016 Blood Pressure 1: 120/64 Code: 8480-6 BMI: 26.2 Code: 37428-7 Heart Rate 1: 65 bpm Height: 5'7" SpO2: 94% Weight: 167 lbs 01/01/2016 Blood Pressure 1: 106/60 Code: 8480-6 BMI: 25.7 Code: 33048-3 Heart Rate 1: 73 bpm Height: 5'7" SpO2: 98% Weight: 164 lbs 11/13/2015 Blood Pressure 1: 122/86 Code: 8480-6 BMI: 25.8 Code: 56953-2 Heart Rate 1: 80 bpm Height: 5'7" SpO2: 92% Weight: 165 lbs 11/07/2015 Blood Pressure 1: 118/64 Code: 8480-6 BMI: 25.8 Code: 40446-3 Heart Rate 1: 66 bpm Height: 5'7" SpO2: 95% Weight: 165 lbs 08/07/2015 Blood Pressure 1: 122/80 Code: 8480-6 BMI: 24.4 Code: 33361-8 Heart Rate 1: 74 bpm Height: 5'7" [...] day 05/30/2017 None Annual Medicare Wellness Exam Yohana grace Stress usually ashanti effectively 05/30/2017 None Annual [...] Encounters Encounter Performer Loca tion Codes Date EST. PATIENT, LEVEL III Diagnosis: Type 2 diabetes mellitus without complications[ICD10: E11.9] Diagnosis: Essential (primary) hypertension[ICD10: I10] Diagnosis: Pain in right knee[ICD10: M25.561] Diagnosis: Primary generalized (osteo)arthritis[ICD10: M15.0] Lakeisha Hoskins MD, [facility] CPT-4: 25211 08/28/2018 ([id number]) [id number] EST. P ATIENT, LEVEL III Diagnosis: Pain in left hip[ICD10: M25.552] Diagnosis: Pain in left shoulder[ICD10: M25.512] Nancy Hoskins MD, [facility] CPT-4: 64107 05/22/2018 [id number] EST. PATIENT, LEVEL III Diagnosis: Essential (primary) hypertension[ICD10: I10] Diagnosis: Pain in right knee[ICD10: M25.561] Diagnosis: Pain in left shoulder[ICD10: M25.512] Lakeisha Hoskins MD, [facility] CPT- 4: 35625 04/26/2018 [id number] EST. PATIENT, LEVEL IV Diagnosis: Type 2 diabetes mellitus without complications[ICD10: E11.9] Diagnosis: Essential (primary) hypertension[ICD10: I10] Diagnosis: Pain in right knee[ICD10: M25.561] Lakeisha Hoskins MD, [facility] CPT-4: 64616 12/21/2017 [id number] EST. PATIENT, LEVEL IV Diagnosis: Type 2 diabetes mellitus without complications[ICD10: E11.9] Diagnosis: Essential (primary) hypertension[ICD10: I10] Diagnosis: Pain in right knee[ICD10: M25.561] Lakeisha Hoskins MD, [facility] CPT-4: 28694 08/25/2017 [id number] EST. PATIENT, LEVEL IV Diagnosis: Type 2 diabetes mellitus without complications[ICD10: E11.9] Diagnosis: Essential (primary) hypertension[ICD10: I10] Lakeisha Hoskins MD, [facility] CPT-4: 80724 04/20/2017 ([id number]) [id number] EST. P ATIENT, LEVEL III Diagnosis: Essential (primary) hypertension[ICD10: I10] Diagnosis: Obstructive sleep apnea (adult) (pediatric)[ICD10: G47.33] Nancy Hoskins MD, [facility] CPT-4: 28612 01/21/2017 ([id number]) 35010 EST. P ATIENT, LEVEL IV Diagnosis: Essential (primary) hypertension[ICD10: I10] Diagnosis: Type 2 diabetes mellitus without complications[ICD10: E11.9] Diagnosis: Obstructive sleep apnea (adult) (pediatric)[ICD10: G47.33] Nancy Hoskins MD, [facility] CPT-4: 17956 10/22/2016 ([id number]) 35010 EST. P ATIENT, LEVEL III Diagnosis: Localized edema[ICD10: R60.0] Diagnosis: Rash and other nonspecific skin eruption[ICD10: R21] Nancy Hoskins MD, [facility] CPT-4: 93305 10/04/2016 ([id number]) 91279 EST. P ATIENT, LEVEL IV Diagnosis: Essential (primary) hypertension[ICD10: I10] Diagnosis: Type 2 diabetes mellitus without complications[ICD10: E11.9] Diagnosis: Mixed hyperlipidemia[ICD10: E78.2] Nancy Hoskins MD, [facility] CPT-4: 45680 06/18/2016 ([id number]) 37777 EST. P ATIENT, LEVEL III Diagnosis: Cough[ICD10: R05] Diagnosis: Acute bronchitis, unspecified[ICD10: J20.9] Nancy Hoskins MD, [facility] CPT-4: 94914 04/29/2016 [id number] EST. PATIENT, LEVEL IV Diagnosis: Other acute sinusitis[ICD10: J01.80] Diagnosis: Other allergic rhinitis[ICD10: J30.89] Lakeisha Hoskins MD, [facility] CPT-4: 03519 04/21/2016 ([id number] EST. P ATIENT, LEVEL IV Diagnosis: Essential (primary) hypertension[ICD10: I10] Diagnosis: Type 2 diabetes mellitus without complications[ICD10: E11.9] Diagnosis: Mixed hyperlipidemia[ICD10: E78.2] Diagnosis: Primary generalized (osteo)arthritis[ICD10: M15.0] Nancy Hoskins MD, [facility] CPT-4: 73139 02/20/2016 ([id number] EST. P ATIENT, LEVEL IV Diagnosis: Cough[ICD10: R05] Diagnosis: Acute bronchitis due to Hemophilus influenzae[ICD10: J20.1] Diagnosis: Type 2 diabetes mellitus without complications[ICD10: E11.9] Diagnosis: Essential (primary) hypertension[ICD10: I10] Charlene Hoskins MD [facility] CPT-4: 66284 01/01/2016 ([id number]) 62141 EST. P ATIENT, LEVEL IV Diagnosis: Essential (primary) hypertension[ICD10: I10] Diagnosis: Mixed hyperlipidemia[ICD10: E78.2] Diagnosis: Type 2 diabetes mellitus without complications[ICD10: E11.9] Nancy Hoskins MD, [facility] CPT-4: 75950 11/07/2015 OFFICE VISIT, NEW - LEVEL 4 Diagnosis: Type 2 diabetes mellitus without complications[ICD10: E11.9] Diagnosis: Essential (primary) hypertension[ICD10: I10] Diagnosis: Mixed hyperlipidemia[ICD10: E78.2] Diagnosis: Elevated prostate specific antigen [PSA][ICD10: R97.2] Nancy Hoskins MD, [facility] CPT-4: 38428 08/07/2015 Plan of Care Planned Activity Notes C odes Status Date Visit Plan: Hypertension - well con trolled [...] glucose control. 08/28/2018 Appointment: Lakeisha Putnam WPtel: [phone] [facility] (30 min) Complex 08/28/2018 Patient Education: Patient Medication Summary Completed 08/28/2018 Patient Education: Diabetes Completed 08/28/2018 Appointment: Lakeisha Putnam WPtel: [facility] (15 min) Moderate 08/21/2018 Visit Plan: Left shoulder pain -sta rted six weeks ago after a fall -will get xrays today and proceed as indicated -okay to take tylenol as needed for pain Left hip pain -also started after fall -xray hip today as well 05/22/2018 Appointment: Nancy Tavares WPtel: [phone] [place] (30 min) Complex 05/22/2018 Patient Education: [...] of injection. 04/26/2018 Appointment: Lakeisha Putnam WPtel: [facility] [place] (30 min) Complex 04/26/2018 Patient Education: [...] not improve. 12/21/2017 Appointment: [phone] (15 min) Moderate 12/21/2017 Patient Education: Patient [...] of injection. 08/25/2017 Appointment: Lake[facility] Putnam [facility]el[phone] (15 min) Moderate 08/25/2017 Patient Education: Patient [...] Summary Completed 05/30/2017 Appointment: Lakeisha Putnam WPtel: [id number] [place] [address] - Annual Wellness Visit 05/27/2017 Appointment: Nancy Tavares WPtel: [phone] (30 min) Complex 04/22/2017 Visit Plan: Hypertension [...] less controlled. 04/20/2017 Appointment: Lakeisha Putnam WPtel: [facility] (30 min) Complex 04/20/2017 Patient Education: Patient [...] improved sleep, etc. Will fax note to [facility]. 01/21/2017 Appointment: Nancy Tavares WPtel: [phone] [phone] (30 min) Complex 01/21/2017 Appointment: Nancy Tavares WPtel: [phone] [phone] (30 min) Complex 01/21/2017 Patient Education: Patient Medication Summary Completed 01/21/2017 Appointment: Injection 12/21/2016 Patient Education: Patient Medication Summary Completed [...] doing well-due for a new machine-will call [facility] to see what we need to do to get him a new machine. 10/22/2016 Appointment: [facility] Tavares [facility]Ptel[phone] (30 min) Complex 10/22/2016 Patient Education: Patient [...] of plan. 10/04/2016 Appointment: Nancy Tavares WPtel: [phone] [id number] [place] [address] (15 min) Moderate 10/04/2016 Patient Education: Patient [...] me dications. 06/18/2016 Appointment: Nancy Tavares WPtel: [phone] [phone] (15 min) Moderate 06/18/2016 Patient Education: Patient [...] acutely worsen. 04/29/2016 Appointment: Nancy Tavares WPtel: [address] [place], [place] [phone] (15 min) Moderate 04/29/2016 Patient Education: Patient Medication Summary Completed 04/29/2016 Care Plan: CHEST X-RAY 2VW FRONTAL&LATL LOINC : 46187-8 Pending 04/29/2016 Visit Plan: Sinusitis - Pt [...] allergy spray. 04/21/2016 Appointment: Lakeisha Putnam WPtel: [address] [place] [phone] (15 min) [facility] 04/21/2016 Patient Education: Patient Medication Summary Completed [...] provided 02/20/2016 Appointment: Nancy Tavares WPtel: [phone] [phone] (30 min) Complex 02/20/2016 Patient Education: Patient [...] less controlled. 01/01/2016 Appointment: [phone] (15 min) Moderate 01/01/2016 Patient Education: Patient [...] of injection. 11/13/2015 Appointment: [facility] Tavares [facility]Ptel[phone] (15 min) Moderate 11/13/2015 Patient Education: Patient [...] response to medications. DM-too early for Hgb [id number] to have done next week 11/07/2015 Appointment: [facility]avares [facility]Ptel[phone] (15 min) Moderate 11/07/2015 Patient Education: Patient Medication Summary Completed 11/07/2015 Visit Plan: Diabetes Mellitus - con magenlled - per recent FSBS reports. I have [...] results 08/07/2015 Appointment: [facility] Tavares [facility]Ptel[phone] [place] New Patient 08/07/2015 Patient Education: Patient Medication [...] doing well-due for a new machine-will call [facility] to see what we need to do [...] TIMES WEEKLY CONTINUE STEROID CREAM ORDERED BY [employer] CULTURE RASH LEFT AXILLA . Edema - [...] or does not improve. . Hypertension - con tinue with current [...] improved sleep, etc. Will fax note to [facility]. XRAY LEFT SHOULDER A ND LEFT HIP . Left shoulder pain -started six weeks ago after a fall -will get xrays today and proceed as indicated -okay to take tylenol as needed for pain Left hip pain -also started after fall -xray hip today as well RETURN FOR FASTING L ABS . Diabetes [...] response to medications. Elevated PSA-awaiting biopsy results . Sinusitis - Pt has acute infection [...] response to medications. DM-too early for Hgb [id number] to have done next week CXR STOP SYMBICORT TWO PUFFS BID . Bronchitis - acute case of bronchitis identified. Pt has been given antibiotics, breathing treatments as appropriate, and pt has been instructed to call if symptoms are not improved, or if symptoms acutely worsen.
--- OUTSIDE RECORDS SUMMARY | 2019-04-11 03:31 | XMS REPORT | CCD ---
Author Author Cesar Tavares Organization Charlene Hoskins MD, [facility] Address [address] [place] [address] Phone Care Team Providers Care Placement Specialist Name Role Phone PP Unavailable CCM Unavailable Summary Purpose Interface Exchange Insurance Providers Payer name Policy type / Coverage type Covered alliance party ID Effective Begin Date Effective End Date WPS Medicare Part B Medicare Part B [id number] Unknown [facility] Part B [id number] Un known Family history Brother Diagnosis Age [...] Retir ed 08/07/[address]: 2956250 Quit over 10 years ago 1970 08/07/[address]: 817930164 Never drinks alcohol 08/07/2015 Allergies, Adverse Reactions, Alerts Substance Reaction Codes Entered Date Inactivated Date Status Penicillin Unknown 08/07/2015 No In active Date Active Past Medical History Illness Codes Condition Status Onset Date Resolved Date Pain in left hip ICD-9: 719.45 ICD-10: M25.552 Active 05/22/2018 Unknown Pain in left shoulder ICD-9: 719.41 ICD-10: M25.512 Active 04/26/2018 Unknown Essential (primary) hypertension ICD-9: 401.1 ICD-10: I10 Active 12/31/2015 Unknown Pain in right knee ICD- 9: 719.46 ICD-10: M25.561 Active 11/12/2015 Unknown Type 2 diabetes nanette itus without complications ICD-9: 250.00 ICD-10: E11.9 Active 02/19/2016 Unknown Encounter for genera l adult medical [...] ICD-9: 477.8 ICD-10: J30.89 Active 04/21/2016 Unknown Primary generalized (osteo)arthritis ICD-9: 715.09 ICD-10: M15.0 Active 02/19/2016 Unknown Acute bronchitis due to Hemophilus influenzae ICD-9: 466.0 ICD-10: J20.1 Active 12/31/2015 Unknown VAC STREP PNEUMONIAE -FLU ICD-9: V06.6 ICD-10: Z23 Active 11/12/2015 Unknown Problems Condition Codes Effectiv e Dates Condition Status Pain in left hip ICD-9: 719.45 ICD-10: M25.552 05/22/2018 Active Pain in left shoulder ICD-9: 719.41 ICD-10: M25.512 04/26/2018 Active Essential (primary) hypertension ICD-9: 401.1 ICD-10: I10 12/31/2015 Active Pain in right knee ICD- 9: 719.46 ICD-10: M25.561 11/12/2015 Active Type 2 diabetes nanette itus without complications ICD-9: 250.00 ICD-10: E11.9 02/19/2016 Active Encounter for genera l adult medical [...] rhinitis ICD-9: 477.8 ICD-10: J30.89 04/21/2016 Active Primary generalized (osteo)arthritis ICD-9: 715.09 ICD-10: M15.0 02/19/2016 Active Acute bronchitis due to Hemophilus influenzae ICD-9: 466.0 ICD-10: J20.1 12/31/2015 Active VAC STREP PNEUMONIAE -FLU ICD-9: V06.6 ICD-10: Z23 11/12/2015 Active Medications Medication Codes Instruc tions Start Date Stop Date Sta tus Fill Instructions losartan 50 mg tablet RxNorm: 502011 1 Tablet(s) PO daily TAKE 1 TABLET BY MO UTH ONCE DAILY 07/25/2018 01/20/2019 Active meloxicam 7.5 mg tablet RxNorm: 384552 TAKE 1 TABLET BY MOUTH ONCE DAILY 06/01/2018 No Stop Date Active Advair Diskus 250 mc g-50 mcg/dose powder for inhalation RxNorm: 1071670 INHALE 1 DOSE BY MOUTH TWICE DAILY 05/22/2018 No Stop Date Active fluticasone propiona te 50 mcg/actuation nasal spray,suspension RxNorm: 3189442 USE 2 SPRAY(S) IN EACH NOSTRIL ONCE DAILY 05/17/2018 No Stop Date Active simvastatin 20 mg ta blet RxNorm: 987322 TAKE 1 TABLET BY MOUT H ONCE DAILY 05/16/2018 No Stop Date Active Kenalog 40 mg/mL maggie pension for injection RxNorm: 2761801 1 Milliliter(s) Inj 04/26/2018 04/26/2018 In active Kenalog 40 mg/mL maggie pension for injection RxNorm: 7675796 1 Milliliter(s) Inj 04/26/2018 04/26/2018 In active losartan 50 mg tablet RxNorm: 557175 TAKE 1 TABLET BY MOUTH ONCE DAILY 04/24/2018 07/24/2018 In active fluticasone propiona te 50 mcg/actuation nasal spray,suspension RxNorm: 9772607 USE 2 SPRAY(S) IN EACH NOSTRIL ONCE DAILY 03/27/2018 05/16/2018 Inactive Advair Diskus 250 mc g-50 mcg/dose powder for inhalation RxNorm: 8638413 INHALE 1 DOSE BY MOUTH TWICE DAILY 03/21/2018 05/21/2018 Inactive montelukast 10 mg ta blet RxNorm: 627476 TAKE ONE TABLET BY MO UTH ONCE DAILY 03/15/2018 No Stop Date Active Advair Diskus 250 mc g-50 mcg/dose powder for inhalation RxNorm: 0000506 INHALE 1 DOSE BY MOUTH TWICE DAILY 02/20/2018 03/20/2018 Inactive fluticasone 50 mcg/a ctuation nasal spray,suspension RxNorm: 2304668 USE 2 SPRAY(S) IN EACH NOSTRIL ONCE DAILY 02/08/2018 03/26/2018 Inactive metformin 500 mg tablet RxNorm: 067111 TAKE 1 TABLET BY MOUTH ONCE DAILY 01/16/2018 No Stop Date Active Advair Diskus 250 mc g-50 mcg/dose powder for inhalation RxNorm: 8739212 INHALE 1 DOSE BY MOUTH TWICE DAILY 12/19/2017 02/19/2018 Inactive meloxicam 7.5 mg tablet RxNorm: 939123 TAKE 1 TABLET BY MOUTH ONCE DAILY 12/01/2017 05/31/2018 In active simvastatin 20 mg ta blet RxNorm: 904920 TAKE 1 TABLET BY MOUT H ONCE DAILY 11/14/2017 05/15/2018 In active losartan 50 mg tablet RxNorm: 351962 TAKE ONE TABLET BY MOUTH ONCE DAILY 10/27/2017 04/23/2018 In active Advair Diskus 250 mc g-50 mcg/dose powder for inhalation RxNorm: 0490099 INHALE 1 DOSE BY MOUTH TWICE DAILY 10/19/2017 12/18/2017 Inactive fluticasone 50 mcg/a ctuation nasal spray,suspension RxNorm: 2489162 USE TWO SPRAY(S) IN EACH NOSTRIL ONCE DAILY 10/19/2017 02/07/2018 Inactive Kenalog 40 mg/mL maggie pension for injection RxNorm: 5134396 1 Milliliter(s) Inj 08/25/2017 08/25/2017 In active meloxicam 7.5 mg tablet RxNorm: 717187 TAKE ONE TABLET BY MOUTH ONCE DAILY 06/06/2017 11/30/2017 In active simvastatin 20 mg ta blet RxNorm: 210164 TAKE ONE TABLET BY MO UTH ONCE DAILY 05/17/2017 11/13/2017 In active metformin 500 mg tablet RxNorm: 960037 TAKE ONE TABLET BY MOUTH ONCE DAILY 05/05/2017 01/15/2018 In active Advair Diskus 250 mc g-50 mcg/dose powder for inhalation RxNorm: 7715084 INHALE ONE DOSE BY MOUTH TWICE DAILY 04/19/2017 10/18/2017 Inactive Tamiflu 75 mg capsule RxNorm: 376377 1 Capsule(s) PO daily 03/25/2017 03/24/2017 Inactive Tamiflu 75 mg capsule RxNorm: 454446 1 Capsule(s) PO daily 03/25/2017 03/31/2017 Inactive montelukast 10 mg ta blet RxNorm: 659666 TAKE ONE TABLET BY MO UTH ONCE DAILY 03/21/2017 03/14/2018 In active losartan 50 mg tablet RxNorm: 811997 TAKE ONE TABLET BY MOUTH ONCE DAILY 01/27/2017 10/26/2017 In active fluticasone 50 mcg/a ctuation nasal spray,suspension RxNorm: 8587285 USE TWO SPRAY(S) IN EACH NOSTRIL ONCE DAILY 01/17/2017 10/18/2017 Inactive meloxicam 7.5 mg tablet RxNorm: 925329 TAKE ONE TABLET BY MOUTH ONCE DAILY 12/06/2016 06/03/2017 In active metformin 500 mg tablet RxNorm: 784839 Tablet(s) TAKE ONE TABLET BY MOUTH TWICE DAILY 11/30/2016 11/24/2017 Inactive simvastatin 20 mg ta blet RxNorm: 009834 TAKE ONE TABLET BY MO UTH ONCE DAILY 11/15/2016 05/13/2017 In active Advair Diskus 250 mc g-50 mcg/dose powder for inhalation RxNorm: 3867066 INHALE ONE PUFF BY MOUTH TWICE DAILY 10/22/2016 04/18/2017 Inactive ketoconazole 2 % [facility] RxNorm: 535910 1 Application TOP TIW 10/04/2016 10/17/2016 Inactive fluticasone 50 mcg/a ctuation nasal spray,suspension RxNorm: 3355546 USE TWO SPRAY(S) IN EACH NOSTRIL ONCE DAILY 09/21/2016 11/19/2016 Inactive montelukast 10 mg ta blet RxNorm: 586343 TAKE ONE TABLET BY MO UTH ONCE DAILY 09/21/2016 03/19/2017 In active losartan 50 mg tablet RxNorm: 389403 TAKE ONE TABLET BY MOUTH ONCE DAILY 08/02/2016 01/26/2017 In active metformin 500 mg tablet RxNorm: 010957 TAKE ONE TABLET BY MOUTH TWICE DAILY 07/22/2016 10/19/2016 In active furosemide 20 mg tablet RxNorm: 162079 1 Tablet(s) PO daily as needed for swell ing 07/21/2016 04/18/2018 Inactive meloxicam 7.5 mg tablet RxNorm: 862412 TAKE ONE TABLET BY MOUTH ONCE DAILY 06/08/2016 12/04/2016 In active cefdinir 300 mg capsule RxNorm: 700628 1 Capsule(s) PO BID 04/29/2016 05/05/2016 Inactive prednisone 20 mg tablet RxNorm: 716390 1 Tablet(s) PO BID 04/29/2016 05/03/2016 Inactive Zithromax Z-Sherif 250 mg tablet RxNorm: 310795 1 Tablet(s) PO UD 04/21/2016 04/28/2016 Inactive Kenalog 40 mg/mL maggie pension for injection RxNorm: 1655964 1 Milliliter(s) Inj 04/21/2016 04/21/2016 In active montelukast 10 mg ta blet RxNorm: 192256 TAKE ONE TABLET BY [facility] ONCE DAILY 03/22/2016 09/17/2016 In active fluticasone 50 mcg/a ctuation nasal spray,suspension RxNorm: 1435156 2 [place] NASAL daily each nare 03/15/2016 07/12/2016 Inactive qs metformin 500 mg tablet RxNorm: 781702 1 Tablet(s) PO daily 01/16/2016 2016 Inactive Patient does not need a refill- just upd ate dosing Advair Diskus 250 mc g-50 mcg/dose powder for inhalation RxNorm: 0124235 1 INH BID 01/01/2016 04/29/2016 In active Advair Diskus 250 mc g-50 mcg/dose powder for inhalation RxNorm: 7820861 1 INH daily 01/01/2016 12/31/2015 Inactive metformin 500 mg tablet RxNorm: 687144 1 Tablet(s) PO daily 01/01/2016 01/15/2016 Inactive simvastatin 40 mg ta blet RxNorm: 950031 1 Tablet(s) PO daily 01/01/2016 04/17/2018 Inactive azithromycin 250 mg tablet RxNorm: 988471 1 Tablet(s) PO take t wo pills on day #1, then one pill daily x 4 more days 01/01/2016 02/17/2016 Inactive meloxicam 7.5 mg tablet RxNorm: 659673 1 Tablet(s) PO daily 12/11/2015 06/07/2016 Inactive simvastatin 20 mg ta blet RxNorm: 077611 1 Tablet(s) PO daily 11/21/2015 12/31/2015 Inactive metformin 500 mg tablet RxNorm: 064545 1 Tablet(s) PO BID 11/21/2015 12/31/2015 Inactive Advair Diskus 250 mc g-50 mcg/dose powder for inhalation RxNorm: 6271888 1 INH BID 11/21/2015 12/31/2015 In active montelukast 10 mg ta blet RxNorm: 398507 1 Tablet(s) PO daily 09/25/2015 03/21/2016 Inactive losartan 50 mg tablet RxNorm: 904038 1 Tablet(s) PO daily 09/04/2015 08/01/2016 Inactive Restasis 0.05 % eye drops in a dropperette RxNorm: 124459 1 gtts OPH BID 08/07/2015 No Stop Date Active meloxicam 7.5 mg tablet RxNorm: 130600 1 Tablet(s) PO daily 08/07/2015 09/05/2015 Inactive Kay oral RxNorm: 018649 oral No Start Date Active finasteride 5 mg tablet RxNorm: 423975 1 Tablet(s) PO daily No Start Date Active Zyrtec 10 mg tablet RxNorm: 6859251 1 Tablet(s) PO daily No Start Date Active Co Q-10 200 mg capsule RxNorm: 167778 1 Capsule(s) PO daily No Start Date Active Calcium 500 + D (D3) oral RxNorm: 721685 oral No S tart Date Active simethicone 125 mg c apsule RxNorm: 403853 Capsule(s) PO as needed No Start Date Active Vitamin D3 1,000 uni t tablet RxNorm: 970506 1 Tablet(s) PO daily No Start Date Active omega-3 fatty acids 1,000 mg capsule RxNorm: 4 Capsule(s) PO daily No Start Date Active triamcinolone aceton chasity 0.1 % topical cream RxNorm: 0162292 1 TOP UD No Start Date Active fluticasone 50 mcg/a ctuation nasal spray,suspension RxNorm: 9640973 2 [place] NASAL daily each nare No Start Date 03/14/2016 Inactive losartan 50 mg tablet RxNorm: 516265 1 Tablet(s) PO daily No Start Date 09/03/2015 Inactive metformin 500 mg tablet RxNorm: 478430 1 Tablet(s) PO daily No Start Date 11/20/2015 Inactive simvastatin 40 mg ta blet RxNorm: 040582 1 Tablet(s) PO daily No Start Date 11/20/2015 Inactive furosemide 20 mg tablet RxNorm: 625569 1 Tablet(s) PO daily as needed No Start Date 07/20/2016 Inactive Advair Diskus 250 mc g-50 mcg/dose powder for inhalation RxNorm: 7773406 1 INH daily No Start Date 11/20/2015 Inactive Multiple Vitamin oral RxNorm: 58290 oral No Start Date 12/31/2015 Inactive montelukast 10 mg ta blet RxNorm: 895628 1 Tablet(s) PO daily No Start Date 09/24/2015 Inactive Medication Administered Medication Codes Instruc tions Start Date Status Kenalog 40 mg/mL suspension for injection RxNorm: 1589797 1Milliliter 04/26/2018 N o longer Active Kenalog 40 mg/mL suspension for injection RxNorm: 0988991 1Milliliter 04/26/2018 N o longer Active Kenalog 40 mg/mL suspension for injection RxNorm: 8081881 1Milliliter 08/25/2017 N o longer Active Kenalog 40 mg/mL suspension for injection RxNorm: 1219836 1Milliliter 04/21/2016 N o longer Active Immunizations Vaccine Codes Date Status SHINGARIX CVX: 121 06/13 completed Influenza CVX: 141 12/21 completed Influenza CVX: 141 12/21 completed Pneumococcal (Adult) CVX: 133 11/13/2015 completed Influenza CVX: 141 11/10 completed Pneumococcal CVX: 33 completed Zoster CVX: 121 02/14/20 13 completed Assessments Condition Codes Effectiv e Dates Pain in left shoulder ICD-10: M25.51 2 ICD-9: 719.41 05/22/2018 Pain in left hip ICD-10: M25.552 ICD-9: 719.45 05/22/2018 Pain in right knee ICD-10: M25.561 ICD-9: 719.46 04/26/2018 Essential (primary) hypertension ICD -10: I10 ICD-9: 401.1 04/26/2018 Type 2 diabetes mellitus without complications ICD-10: E11.9 ICD-9: 250.00 12/21/2017 Encounter for general adult medical exam ination [...] acute sinusitis ICD-10: J01.80 ICD-9: 461.8 04/21/2016 Primary generalized (osteo)arthritis ICD-10: M15.0 ICD-9: 715.09 02/20/2016 Acute bronchitis due to Hemophilus influenzae ICD-10: J20.1 ICD-9: 466.0 01/01/2016 VAC STREP PNEUMONIAE-FLU ICD-10: Z23 ICD-9: V06.6 11/13/2015 Reason For Visit Reason For Visit Effective Dates Notes shoulder pain 05/22/2018 shoulder pain 04/26/2018 knee [...] Observation Code Item Item Code Result Date %Hba1C Nob348 % HbA1c 72099-0 6.0 % 12/21/2017 %Hba1C Hwl476 Gluc Ave 126 mg/dL 12/21/2017 %Hba1C Tog834 % HbA1c 15502-5 6.2 % 04/20/2017 %Hba1C Rpz777 Gluc Ave 131 mg/dL 04/20/2017 Cbc With [...] 31.8 pg 04/20/2017 Cbc With Differential Ord2 Weber% 9.3 % 04/20/2017 Cbc With Differential Ord2 [...] 1.82 K/ul 04/20/2017 Cbc With Differential Ord2 Weber ABS# 0.6 K/ul 04/20/2017 Cbc With Differential Ord2 Eos ABS# 0.2 K/ul 04/20/2017 Cbc With Differential Ord2 Baso ABS# 0.0 K/ul 04/20/2017 Comp Metabolic Xtw006 NA 141 mEq/L 04/20/2017 Comp Metabolic Sjv082 K 4.5 mEq/L 04/20/2017 Comp Metabolic Xvq263 CL 106 mEq/L 04/20/2017 Comp Metabolic Mpl218 CO2 27.0 mEq/L 04/20/2017 Comp Metabolic Cxk204 AN ION GAP 13 04/20/2017 Comp Metabolic Ega867 GL UCOSE 109 mg/dL 04/20/2017 Comp Metabolic Mry324 Cr eat 1.0 mg/dL 04/20/2017 Comp Metabolic Bqu965 eG FR 81 ml/min/1.73m2 04/20 Comp Metabolic Peo867 BUN 23 mg/dL 04/20/2017 Comp Metabolic Fxv867 B/ C Ratio 24.2 Ratio 04/20/2017 Comp Metabolic Lsr613 CA LCIUM 9.3 mg/dL 04/20/2017 Comp Metabolic Vmi962 AL K PHOS 82 U/L 04/20/2017 Comp Metabolic Ywd197 T(SGOT) 22 U/L 04/20/2017 Comp Metabolic Tcv994 AL T(SGPT) 24 U/L 04/20/2017 Comp Metabolic Ret471 BI LI T 0.4 mg/dL 04/20/2017 Comp Metabolic Ggy814 AL BUMIN 4.3 g/dL 04/20/2017 Comp Metabolic Hkg576 TP RO 6.8 g/dL 04/20/2017 Comp Metabolic Thc403 GL OB 2.5 g/dL 04/20/2017 Comp Metabolic Eet168 A/ G Ratio 1.7 Ratio 04/20/2017 Comp Metabolic Usi829 Os mo 286 mOsmo 04/20/2017 %Hba1C Dzf402 % HbA1c 69978-1 5.8 % 10/22/2016 %Hba1C Tpy808 Gluc Ave 120 mg/dL 10/22/2016 Cbc With [...] 32.5 pg 10/22/2016 Cbc With Differential Ord2 Weber% 10.3 % 10/22/2016 Cbc With Differential Ord2 [...] 1.85 K/ul 10/22/2016 Cbc With Differential Ord2 Weber ABS# 0.8 K/ul 10/22/2016 Cbc With Differential Ord2 Eos ABS# 0.3 K/ul 10/22/2016 Cbc With Differential Ord2 Baso ABS# 0.0 K/ul 10/22/2016 Comp Metabolic Cbt752 NA 141 mEq/L 10/22/2016 Comp Metabolic Kpl600 K 4.4 mEq/L 10/22/2016 Comp Metabolic Rsv970 CL 105 mEq/L 10/22/2016 Comp Metabolic Opy647 CO2 27.0 mEq/L 10/22/2016 Comp Metabolic Cbm385 AN ION GAP 13 10/22/2016 Comp Metabolic Efq311 GL UCOSE 103 mg/dL 10/22/2016 Comp Metabolic Evt871 Cr eat 1.0 mg/dL 10/22/2016 Comp Metabolic Flb051 eG FR 76 ml/min/1.73m2 10/22 Comp Metabolic Wbe550 BUN 27 mg/dL 10/22/2016 Comp Metabolic Pld593 B/ C Ratio 27.0 Ratio 10/22/2016 Comp Metabolic Ito729 CA LCIUM 9.3 mg/dL 10/22/2016 Comp Metabolic Mlk336 AL K PHOS 72 U/L 10/22/2016 Comp Metabolic Lds828 T(SGOT) 23 U/L 10/22/2016 Comp Metabolic Bno979 AL T(SGPT) 26 U/L 10/22/2016 Comp Metabolic Hmc914 BI LI T 0.4 mg/dL 10/22/2016 Comp Metabolic Jvn631 AL BUMIN 4.2 g/dL 10/22/2016 Comp Metabolic Rzg630 TP RO 6.7 g/dL 10/22/2016 Comp Metabolic Pex464 GL OB 2.5 g/dL 10/22/2016 Comp Metabolic Ezo322 A/ G Ratio 1.6 Ratio 10/22/2016 Comp Metabolic Azy691 Os mo 287 mOsmo 10/22/2016 Comp Metabolic Kqf913 NA 143 mEq/L 06/17/2016 Comp Metabolic Nqn833 K 4.1 mEq/L 06/17/2016 Comp Metabolic Dug295 CL 108 mEq/L 06/17/2016 Comp Metabolic Xfu553 CO2 28.0 mEq/L 06/17/2016 Comp Metabolic Sbn187 AN ION GAP 11 06/17/2016 Comp Metabolic Uba502 GL UCOSE 106 mg/dL 06/17/2016 Comp Metabolic Kcm369 Cr eat 0.9 mg/dL 06/17/2016 Comp Metabolic Rce998 eG FR 92 ml/min/1.73m2 06/17 Comp Metabolic Fnm671 BUN 22 mg/dL 06/17/2016 Comp Metabolic Ttq394 B/ C Ratio 25.9 Ratio 06/17/2016 Comp Metabolic Rvq579 CA LCIUM 8.8 mg/dL 06/17/2016 Comp Metabolic Icf201 AL K PHOS 55 U/L 06/17/2016 Comp Metabolic Btj962 T(SGOT) 21 U/L 06/17/2016 Comp Metabolic Frk578 AL T(SGPT) 24 U/L 06/17/2016 Comp Metabolic Jte217 BI LI T 0.6 mg/dL 06/17/2016 Comp Metabolic Enm531 AL BUMIN 4.0 g/dL 06/17/2016 Comp Metabolic Gwy828 TP RO 6.2 g/dL 06/17/2016 Comp Metabolic Zvl722 GL OB 2.2 g/dL 06/17/2016 Comp Metabolic Xnz011 A/ G Ratio 1.8 Ratio 06/17/2016 Comp Metabolic Lut868 Os mo 289 mOsmo 06/17/2016 Lipid Ord30 CHOL 163 mg/dL 06/17/2016 Lipid Ord30 HDL 54.0 mg/dl 06/17/2016 Lipid Ord30 TRIG 133 mg/dL 06/17/2016 Lipid Ord30 LDL 82 mg/dL 06/17/2016 Lipid Ord30 C/HDL 3.0 Ratio 06/17/2016 %Hba1C Kym811 % HbA1c 27460-2 6.0 % 06/17/2016 %Hba1C Krp200 Gluc Ave 126 mg/dL 06/17/2016 Total Psa [...] 32.7 pg 06/17/2016 Cbc With Differential Ord2 Weber% 10.7 % 06/17/2016 Cbc With Differential Ord2 [...] 1.71 K/ul 06/17/2016 Cbc With Differential Ord2 Weber ABS# 0.6 K/ul 06/17/2016 Cbc With Differential Ord2 Eos ABS# 0.2 K/ul 06/17/2016 Cbc With Differential Ord2 Baso ABS# 0.0 K/ul 06/17/2016 Tsh Ord6 hTSH II 2.91 uIU/mL 06/17/2016 Tsh Ord6 hTSH II 2.45 uIU/mL 02/19/2016 %Hba1C Yry073 % HbA1c 28481-6 5.8 % 02/19/2016 %Hba1C Jxm152 Gluc Ave 120 mg/dL 02/19/2016 Comp Metabolic Tak388 NA 141 mEq/L 02/19/2016 Comp Metabolic Mcx634 K 4.2 mEq/L 02/19/2016 Comp Metabolic Biv493 CL 107 mEq/L 02/19/2016 Comp Metabolic Byh629 CO2 29.0 mEq/L 02/19/2016 Comp Metabolic Ifv988 AN ION GAP 9 02/19/2016 Comp Metabolic Ozl063 GL UCOSE 106 mg/dL 02/19/2016 Comp Metabolic Dtk875 Cr eat 0.9 mg/dL 02/19/2016 Comp Metabolic Qwr583 eG FR 90 ml/min/1.73m2 02/18 Comp Metabolic Lwo603 BUN 24 mg/dL 02/19/2016 Comp Metabolic Ylg965 B/ C Ratio 27.6 Ratio 02/19/2016 Comp Metabolic Qns808 CA LCIUM 9.1 mg/dL 02/19/2016 Comp Metabolic Cee960 AL K PHOS 67 U/L 02/19/2016 Comp Metabolic Bam981 T(SGOT) 25 U/L 02/19/2016 Comp Metabolic Agy594 AL T(SGPT) 31 U/L 02/19/2016 Comp Metabolic Qlm173 BI LI T 0.6 mg/dL 02/19/2016 Comp Metabolic Cqj144 AL BUMIN 4.1 g/dL 02/19/2016 Comp Metabolic Gme268 TP RO 6.5 g/dL 02/19/2016 Comp Metabolic Ibr989 GL OB 2.4 g/dL 02/19/2016 Comp Metabolic Xpf570 A/ G Ratio 1.7 Ratio 02/19/2016 Comp Metabolic Lyi522 Os mo 286 mOsmo 02/19/2016 Cbc With [...] 31.7 pg 02/19/2016 Cbc With Differential Ord2 Weber% 10.5 % 02/19/2016 Cbc With Differential Ord2 [...] 1.59 K/ul 02/19/2016 Cbc With Differential Ord2 Weber ABS# 0.6 K/ul 02/19/2016 Cbc With Differential Ord2 Eos ABS# 0.3 K/ul 02/19/2016 Cbc With Differential Ord2 Baso ABS# 0.0 K/ul 02/19/2016 Lipid Ord30 CHOL 174 mg/dL 02/19/2016 Lipid Ord30 HDL 54.0 mg/dl 02/19/2016 Lipid Ord30 TRIG 110 mg/dL 02/19/2016 Lipid Ord30 LDL 98 mg/dL 02/19/2016 Lipid Ord30 C/HDL 3.2 Ratio 02/19/2016 %Hba1C Lry407 % HbA1c 85747-0 6.0 % 11/11/2015 %Hba1C Ine855 Gluc Ave 126 mg/dL 11/11/2015 %Hba1C Jbn518 % HbA1c 96216-2 6.0 % 11/07/2015 %Hba1C Hbe008 Gluc Ave 126 mg/dL 11/07/2015 Cbc With [...] 32.0 pg 11/06/2015 Cbc With Differential Ord2 Weber% 9.5 % 11/06/2015 Cbc With Differential Ord2 [...] 1.79 K/ul 11/06/2015 Cbc With Differential Ord2 Weber ABS# 0.6 K/ul 11/06/2015 Cbc With Differential Ord2 Eos ABS# 0.3 K/ul 11/06/2015 Cbc With Differential Ord2 Baso ABS# 0.0 K/ul 11/06/2015 Comp Metabolic Cer803 NA 141 mEq/L 11/06/2015 Comp Metabolic Iep455 K 4.3 mEq/L 11/06/2015 Comp Metabolic Ibk090 CL 107 mEq/L 11/06/2015 Comp Metabolic Pzm566 CO2 28.0 mEq/L 11/06/2015 Comp Metabolic Jpz473 AN ION GAP 10 11/06/2015 Comp Metabolic Bud978 GL UCOSE 117 mg/dL 11/06/2015 Comp Metabolic Vgx523 Cr eat 0.9 mg/dL 11/06/2015 Comp Metabolic Scv078 eG FR 88 ml/min/1.73m2 11/05 Comp Metabolic Hdo528 BUN 22 mg/dL 11/06/2015 Comp Metabolic Euw610 B/ C Ratio 25.0 Ratio 11/06/2015 Comp Metabolic Ium823 CA LCIUM 9.1 mg/dL 11/06/2015 Comp Metabolic Irf159 AL K PHOS 59 U/L 11/06/2015 Comp Metabolic Eju051 T(SGOT) 23 U/L 11/06/2015 Comp Metabolic Ghs243 AL T(SGPT) 26 U/L 11/06/2015 Comp Metabolic Apt600 BI LI T 0.6 mg/dL 11/06/2015 Comp Metabolic Bhv481 AL BUMIN 4.0 g/dL 11/06/2015 Comp Metabolic Ncl727 TP RO 6.4 g/dL 11/06/2015 Comp Metabolic Xjy424 GL OB 2.4 g/dL 11/06/2015 Comp Metabolic Lft712 A/ G Ratio 1.7 Ratio 11/06/2015 Comp Metabolic Woh724 Os mo 286 mOsmo 11/06/2015 Tsh Ord6 hTSH II 2.59 uIU/mL 11/06/2015 Lipid Ord30 CHOL 159 mg/dL 11/06/2015 Lipid Ord30 HDL 42.0 mg/dl 11/06/2015 Lipid Ord30 TRIG 129 mg/dL 11/06/2015 Lipid Ord30 LDL 91 mg/dL 11/06/2015 Lipid Ord30 C/HDL 3.8 Ratio 11/06/2015 Comp Metabolic Bga356 NA 140 mEq/L 08/08/2015 Comp Metabolic Jhn719 K 4.0 mEq/L 08/08/2015 Comp Metabolic Hxm178 CL 108 mEq/L 08/08/2015 Comp Metabolic Cqi973 CO2 25.0 mEq/L 08/08/2015 Comp Metabolic Gvy111 AN ION GAP 11 08/08/2015 Comp Metabolic Wmo942 GL UCOSE 100 mg/dL 08/08/2015 Comp Metabolic Bmy073 Cr eat 0.9 mg/dL 08/08/2015 Comp Metabolic Rbv197 eG FR 82 ml/min/1.73m2 08/07 Comp Metabolic Aed289 BUN 19 mg/dL 08/08/2015 Comp Metabolic Pwr786 B/ C Ratio 20.2 Ratio 08/08/2015 Comp Metabolic Zwo705 CA LCIUM 8.5 mg/dL 08/08/2015 Comp Metabolic Lih357 AL K PHOS 56 U/L 08/08/2015 Comp Metabolic Glf751 T(SGOT) 18 U/L 08/08/2015 Comp Metabolic Cqy359 AL T(SGPT) 17 U/L 08/08/2015 Comp Metabolic Abw533 BI LI T 0.7 mg/dL 08/08/2015 Comp Metabolic Suq358 AL BUMIN 3.9 g/dL 08/08/2015 Comp Metabolic Oww017 TP RO 6.2 g/dL 08/08/2015 Comp Metabolic Yub337 GL OB 2.3 g/dL 08/08/2015 Comp Metabolic Xur930 A/ G Ratio 1.7 Ratio 08/08/2015 Comp Metabolic Rok101 Os mo 282 mOsmo 08/08/2015 Tsh Ord6 hTSH II 3.19 uIU/mL 08/08/2015 %Hba1C Nna303 % HbA1c 85763-2 5.7 % 08/08/2015 %Hba1C Bqh844 Gluc Ave 117 mg/dL 08/08/2015 Cbc With [...] 31.4 pg 08/08/2015 Cbc With Differential Ord2 Weber% 10.9 % 08/08/2015 Cbc With Differential Ord2 [...] 1.51 K/ul 08/08/2015 Cbc With Differential Ord2 Weber ABS# 0.6 K/ul 08/08/2015 Cbc With Differential Ord2 Eos ABS# 0.2 K/ul 08/08/2015 Cbc With Differential Ord2 Baso ABS# 0.0 K/ul 08/08/2015 Lipid Ord30 CHOL 127 mg/dL 08/08/2015 Lipid Ord30 HDL 34.0 mg/dl 08/08/2015 Lipid Ord30 TRIG 93 mg/dL 08/08/2015 Lipid Ord30 LDL 74 mg/dL 08/08/2015 Lipid Ord30 C/HDL 3.7 Ratio 08/08/2015 Review of Systems System Result Effective Dates Constitutional No recent illness 05/22/2018 Constitutional No [...] time 04/20/2017 None Full Exam - General 1995 Eyes conjunctiva/eyelids Overall: cornea clear 04/20/2017 None [...] CPT-4: J3301 04/26/2018 DRAIN/INJECT JOINT/B URSA CPT-4: 67753 04/26/2018 DRAIN/INJECT JOINT/B URSA CPT-4: 19050 08/25/2017 PPPS, SUBSEQ VISIT CPT- 4: G0439 05/30/2017 ADMIN INFLUENZA VIRU S VAC CPT-4: G0008 12/21/2016 FLU VACC PRSV FREE I NC ANTIG CPT-4: 12411 12/21/2016 PPPS, SUBSEQ VISIT CPT- 4: G0439 05/21/2016 TRIAMCINOLONE ACET I [place] NOS CPT-4: J3301 04/21/2016 THER/PROPH/DIAG INJ SC/IM CPT-4: 80727 04/21/2016 DRAIN/INJECT JOINT/B URSA CPT-4: 41975 11/13/2015 PNEUMOCOCCAL VACC [address]: [id number] CPT-4: 59093 11/13/2015 ADMIN PNEUMOCOCCAL V ACCINE SNOMED CT: [id number] CPT-4: G0009 11/13/2015 ADMIN INFLUENZA VIRU S VAC CPT-4: G0008 11/11/2015 FLU VACC 4 AZUL 3 YRS PLUS IM SNOMED CT: [id number] CPT-4: 50957 11/11/2015 Vital Signs Date Vital 05/22/2018 Blood Pressure 1: 130/72 Code: 8480-6 BMI: 25.5 Code: 65506-5 Heart Rate 1: 84 bpm Height: 5'7" SpO2: 96% Weight: 163 lbs 04/26/2018 Blood Pressure 1: 118/56 Code: 8480-6 BMI: 25.5 Code: 79300-1 Heart Rate 1: 60 bpm Height: 5'7" SpO2: 96% Weight: 163 lbs 12/21/2017 Blood Pressure 1: 132/56 Code: 8480-6 BMI: 25.7 Code: 66100-0 Heart Rate 1: 58 bpm Height: 5'7" SpO2: 93% Weight: 164 lbs 08/25/2017 Blood Pressure 1: 126/74 Code: 8480-6 BMI: 26.2 Code: 25302-6 Heart Rate 1: 70 bpm Height: 5'7" SpO2: 94% Weight: 167 lbs 05/30/2017 Blood Pressure 1: 120/66 Code: 8480-6 BMI: 26.6 Code: 78264-2 Heart Rate 1: 66 bpm Height: 5'7" SpO2: 95% Waist Measure (cm): 97 cm Weight: 170 lbs 04/20/2017 Blood Pressure 1: 138/78 Code: 8480-6 BMI: 26.6 Code: 84751-1 Heart Rate 1: 86 bpm Height: 5'7" SpO2: 96% Weight: 170 lbs 01/21/2017 Blood Pressure 1: 136/70 Code: 8480-6 BMI: 26.3 Code: 60835-7 Heart Rate 1: 79 bpm Height: 5'7" SpO2: 95% Weight: 168 lbs 10/22/2016 Blood Pressure 1: 134/72 Code: 8480-6 BMI: 26.3 Code: 94060-3 Heart Rate 1: 70 bpm Height: 5'7" SpO2: 95% Weight: 168 lbs 10/04/2016 Blood Pressure 1: 142/80 Code: 8480-6 BMI: 26.6 Code: 97941-3 Heart Rate 1: 72 bpm Height: 5'7" SpO2: 93% Weight: 170 lbs 06/18/2016 Blood Pressure 1: 132/76 Code: 8480-6 BMI: 26.2 Code: 91078-7 Heart Rate 1: 65 bpm Height: 5'7" SpO2: 95% Weight: 167 lbs 8 oz 05/21/2016 Blood Pressure 1: 126/76 Code: 8480-6 BMI: 26.0 Code: 58511-4 Heart Rate 1: 72 bpm Height: 5'7" SpO2: 98% Weight: 166 lbs 04/29/2016 Blood Pressure 1: 128/70 Code: 8480-6 BMI: 25.7 Code: 54823-9 Heart Rate 1: 67 bpm Height: 5'7" SpO2: 97% Temperature: 36.3 (C ) / 97.4 (F) Weight: 164 lbs 04/21/2016 Blood Pressure 1: 130/62 Code: 8480-6 BMI: 26.3 Code: 85014-9 Heart Rate 1: 74 bpm Height: 5'7" SpO2: 96% Temperature: 37.0 (C ) / 98.6 (F) Weight: 168 lbs 02/20/2016 Blood Pressure 1: 120/64 Code: 8480-6 BMI: 26.2 Code: 17485-1 Heart Rate 1: 65 bpm Height: 5'7" SpO2: 94% Weight: 167 lbs 01/01/2016 Blood Pressure 1: 106/60 Code: 8480-6 BMI: 25.7 Code: 59829-4 Heart Rate 1: 73 bpm Height: 5'7" SpO2: 98% Weight: 164 lbs 11/13/2015 Blood Pressure 1: 122/86 Code: 8480-6 BMI: 25.8 Code: 17794-0 Heart Rate 1: 80 bpm Height: 5'7" SpO2: 92% Weight: 165 lbs 11/07/2015 Blood Pressure 1: 118/64 Code: 8480-6 BMI: 25.8 Code: 87333-5 Heart Rate 1: 66 bpm Height: 5'7" SpO2: 95% Weight: 165 lbs 08/07/2015 Blood Pressure 1: 122/80 Code: 8480-6 BMI: 24.4 Code: 20552-0 Heart Rate 1: 74 bpm Height: 5'7" SpO2: 94% Weight: 156 lbs Functional Status No Functional Status data History of Present Illness Symptom Name Status Resu lt Effective Date Notes Location on the left s [place] 05/22/2018 [...] Encounters Encounter Performer Loca tion Codes Date ([id number]) [id number] EST. P ATIENT, LEVEL III Diagnosis: Pain in left hip[ICD10: M25.552] Diagnosis: Pain in left shoulder[ICD10: M25.512] Nancy Hoskins MD, [facility] CPT-4: 62745 05/22/2018 [id number] EST. PATIENT, LEVEL III Diagnosis: Essential (primary) hypertension[ICD10: I10] Diagnosis: Pain in right knee[ICD10: M25.561] Diagnosis: Pain in left shoulder[ICD10: M25.512] [facility] CPT- 4: 04960 04/26/2018 [id number] EST. PATIENT, LEVEL IV Diagnosis: Type 2 diabetes mellitus without complications[ICD10: E11.9] Diagnosis: Essential (primary) hypertension[ICD10: I10] Diagnosis: Pain in right knee[ICD10: M25.561] Lakeisha Hoskins MD, [facility] CPT-4: 47008 12/21/2017 [id number] EST. PATIENT, LEVEL IV Diagnosis: Type 2 diabetes mellitus without complications[ICD10: E11.9] Diagnosis: Essential (primary) hypertension[ICD10: I10] Diagnosis: Pain in right knee[ICD10: M25.561] Lakeisha Hoskins MD, [facility] CPT-4: 65779 08/25/2017 [id number] EST. PATIENT, LEVEL IV Diagnosis: Type 2 diabetes mellitus without complications[ICD10: E11.9] Diagnosis: Essential (primary) hypertension[ICD10: I10] Lakeisha Hoskins MD, [facility] CPT-4: 07821 04/20/2017 ([id number]) 01436 EST. P ATIENT, LEVEL III Diagnosis: Essential (primary) hypertension[ICD10: I10] Diagnosis: Obstructive sleep apnea (adult) (pediatric)[ICD10: G47.33] Nancy Hoskins MD, [facility] CPT-4: 76395 01/21/2017 ([id number]) 41623 EST. P ATIENT, LEVEL IV Diagnosis: Essential (primary) hypertension[ICD10: I10] Diagnosis: Type 2 diabetes mellitus without complications[ICD10: E11.9] Diagnosis: Obstructive sleep apnea (adult) (pediatric)[ICD10: G47.33] Nancy Hoskins MD, [facility] CPT-4: 42247 10/22/2016 ([id number]) 43128 EST. P ATIENT, LEVEL III Diagnosis: Localized edema[ICD10: R60.0] Diagnosis: Rash and other nonspecific skin eruption[ICD10: R21] Nancy Hoskins MD, [facility] CPT-4: 65026 10/04/2016 ([id number]) 26375 EST. P ATIENT, LEVEL IV Diagnosis: Essential (primary) hypertension[ICD10: I10] Diagnosis: Type 2 diabetes mellitus without complications[ICD10: E11.9] Diagnosis: Mixed hyperlipidemia[ICD10: E78.2] Nancy Hoskins MD, [facility] CPT-4: 75412 06/18/2016 ([id number]) 84711 EST. P ATIENT, LEVEL III Diagnosis: Cough[ICD10: R05] Diagnosis: Acute bronchitis, unspecified[ICD10: J20.9] Nancy Hoskins MD, [facility] CPT-4: 60965 04/29/2016 09539 EST. PATIENT, LEVEL IV Diagnosis: Other acute sinusitis[ICD10: J01.80] Diagnosis: Other allergic rhinitis[ICD10: J30.89] Lakeisha Hoskins MD, [facility] CPT-4: 71149 04/21/2016 ([id number]) 36594 EST. P ATIENT, LEVEL IV Diagnosis: Essential (primary) hypertension[ICD10: I10] Diagnosis: Type 2 diabetes mellitus without complications[ICD10: E11.9] Diagnosis: Mixed hyperlipidemia[ICD10: E78.2] Diagnosis: Primary generalized (osteo)arthritis[ICD10: M15.0] Nancy Hoskins MD, [facility] CPT-4: 36388 02/20/2016 ([id number]) 87192 EST. P ATIENT, LEVEL IV Diagnosis: Cough[ICD10: R05] Diagnosis: Acute bronchitis due to Hemophilus influenzae[ICD10: J20.1] Diagnosis: Type 2 diabetes mellitus without complications[ICD10: E11.9] Diagnosis: Essential (primary) hypertension[ICD10: I10] Charlene Hoskins MD, [facility] CPT-4: 75626 01/01/2016 ([id number]) 28265 EST. P ATIENT, LEVEL IV Diagnosis: Essential (primary) hypertension[ICD10: I10] Diagnosis: Mixed hyperlipidemia[ICD10: E78.2] Diagnosis: Type 2 diabetes mellitus without complications[ICD10: E11.9] Nancy Hoskins MD, [facility] CPT-4: 50489 11/07/2015 OFFICE VISIT, NEW - LEVEL 4 Diagnosis: Type 2 diabetes mellitus without complications[ICD10: E11.9] Diagnosis: Essential (primary) hypertension[ICD10: I10] Diagnosis: Mixed hyperlipidemia[ICD10: E78.2] Diagnosis: Elevated prostate specific antigen [PSA][ICD10: R97.2] Nancy Hoskins MD, [facility] CPT-4: 10410 08/07/2015 Plan of Care Planned Activity Notes C odes Status Date Visit Plan: Left shoulder pain -sta rted six weeks ago after a fall -will get xrays today and proceed as indicated -okay to take tylenol as needed for pain Left hip pain -also started after fall -xray hip today as well 05/22/2018 Appointment: Nancy Tavares WPtel: [phone] [phone] [place] (30 min) Complex 05/22/2018 Patient Education: [...] of injection. 04/26/2018 Appointment: Lakeisha Putnam WPtel: [phone] [phone] (30 min) Complex 04/26/2018 Patient Education: Patient [...] improve. 12/21/2017 Appointment: Lakeisha Putnam WPtel: [phone] [facility] [place] (15 min) Moderate 12/21/2017 Patient Education: Patient [...] of injection. 08/25/2017 Appointment: Lakeisha Putnam WPtel: [address] [place] [address] (15 min) Moderate 08/25/2017 Patient Education: Patient Medication Summary Completed 08/25/2017 Visit Plan: Medicare Exam - today w edgar discussed the patients past history, immunizations, preventative [...] Summary Completed 05/30/2017 Appointment: Lakeisha Putnam WPtel: [facility] [facility] - Annual Wellness Visit 05/27/2017 Appointment: Nancy Tavares WPtel: [address] [place], [place] [phone] (30 min) Complex 04/22/2017 Visit Plan: Hypertension [...] controlled. 04/20/2017 Appointment: Lakeisha Putnam WPtel: [phone] [phone] (30 min) Complex 04/20/2017 Patient Education: Patient [...] [facility] 01/21/2017 Appointment: Nancy Tavares WPtel: [phone] (30 min) Complex 01/21/2017 Appointment: Nancy Tavares WPtel: [phone] (30 min) Complex 01/21/2017 Patient Education: [...] doing well-due for a new machine-will call P to see what we need to do to get him a new machine. 10/22/2016 Appointment: Nancy Tavares WPtel: [phone] [phone] (30 min) Complex 10/22/2016 Patient Education: [...] of plan. 10/04/2016 [phone] (15 min) Moderate 10/04/2016 Patient Education: Patient [...] dications. 06/18/2016 App[facility]ment[phone] (15 min) Moderate 06/18/2016 Patient Education: Patient [...] acutely worsen. 04/29/2016 [facility]ment[phone] (15 min) Moderate 04/29/2016 Patient Education: Patient Medication Summary Completed 04/29/2016 Care Plan: CHEST X-RAY 2VW FRONTAL&LATL LOINC : 38678-4 Pending 04/29/2016 Visit Plan: Sinusitis - Pt [...] allergy spray. 04/21/2016 Appointment: Lakeisha Putnam [facility]Ptel[facility] (15 min) Moderate 04/21/2016 Patient Education: Patient [...] provided 02/20/2016 Appointment: Nancy Tavares WPtel: [phone] [phone] (30 min) Complex 02/20/2016 Patient Education: Patient [...] controlled. 01/01/2016 [facility]ment[phone] (15 min) Moderate 01/01/2016 Patient Education: [...] of injection. 11/13/2015 Appointment: Nancy Tavares WPtel: [phone] (15 min) Moderate 11/13/2015 Patient Education: [...] response to medications. DM-too early for Hgb [id number] to have done next week 11/07/2015 App[facility]ment: [phone] [phone] (15 min) Moderate 11/07/2015 Patient Education: [...] results 08/07/2015 App[facility]ment: [phone] [phone] [place] New Patient 08/07/2015 Patient Education: Patient Medication Summary Completed 08/07/2015 Instructions Comment COMPRESSION STOCKING S KETOCONAZOLE SHAMPOO THREE TIMES WEEKLY CONTINUE STEROID CREAM ORDERED BY EXPENDITURE REQUISITION CLERK CULTURE RASH LEFT AXILLA . Edema - [...] pain is worsening or does not improve. XRAY LEFT SHOULDER A ND LEFT HIP . Left shoulder pain -started six weeks ago after a fall -will get xrays today and proceed as indicated -okay to take tylenol as needed for pain Left hip pain -also started after fall -xray hip today as well . Hypertension - con tinue with current [...] are starting to become less controlled. . Medicare Exam - to day we [...] response to medications. DM-too early for Hgb [id number] to have done next week . Hypertension [...] to medications. Elevated PSA-awaiting biopsy results . Hypertension - wel l controlled - [...] to [facility]. . Hypertension - wel l controlled - [...]
--- OUTSIDE RECORDS SUMMARY | 2019-04-11 03:32 | XMS REPORT | CCD ---
Author Author Cesar Tavares Organization Charlene Hoskins MD, [facility] Address [address] [place] [address] Phone Care Team Providers Care Tobacco Sweeper Name Role Phone PP Unavailable CCM Unavailable Summary Purpose Interface Exchange Insurance Providers Payer name Policy type / Coverage type Covered libertarian ID Effective Begin Date Effective End Date WPS Medicare Part B Medicare Part B [id number] Unknown Unknown [facility] icare Part B [id number] Unknown Unk nown Family history Sister Diagnosis Age At Onset Colon cancer [...] Retir ed 08/07/[address]: 5894074 Quit over 10 years ago 1970 08/07/[address]: 728598956 Never drinks alcohol 08/07/2015 Allergies, Adverse Reactions, Alerts Allergies, Adverse Reactions, Alerts data not found Past Medical History Illness Codes Condition Status Onset Date Resolved Date Essential (primary) hypertension ICD-9: 401.1 ICD-10: I10 Active 12/31/2015 Unknown Mixed hyperlipidemia ICD-9: 272.2 ICD-10: E78.2 Active 02/19/2016 Unknown Type 2 diabetes nanette itus without complications ICD-9: 250.00 ICD-10: E11.9 Active 02/19/2016 Unknown Diabetes Unknown Active 06/16/2016 Unknow n Hypertension Unknown Active 06/16/2016 Unknow n Elevated prostate sp ecific antigen [PSA] ICD-9: 790.93 ICD-10: R97.2 Active 08/06/2015 Unknown Essential (primary) hypertension ICD-9: 401.9 ICD-10: I10 Active 02/19/2016 Unknown Encounter for genera l adult medical examination with abnormal findings ICD-9: V70.0 ICD-10: Z00.01 Active 05/21/2016 Unknown Acute bronchitis, un specified ICD-9: 466.0 ICD-10: J20.9 Active 04/29/2016 Unknown Cough ICD-9: 786.2 ICD-10: R05 Active 12/31/2015 Unknown Other acute sinusitis ICD-9: 461.8 ICD-10: J01.80 Active 04/21/2016 Unknown Other allergic rhinitis ICD-9: 477.8 ICD-10: J30.89 Active 04/21/2016 Unknown Primary generalized (osteo)arthritis ICD-9: 715.09 ICD-10: M15.0 Active 02/19/2016 Unknown Acute bronchitis due to Hemophilus influenzae ICD-9: 466.0 ICD-10: J20.1 Active 12/31/2015 Unknown Pain in right knee ICD- 9: 719.46 ICD-10: M25.561 Active 11/12/2015 Unknown VAC STREP PNEUMONIAE -FLU ICD-9: V06.6 ICD-10: Z23 Active 11/12/2015 Unknown Encounter for immuni zation ICD-9: V04.81 ICD-10: Z23 Active 11/10/2015 Unknown Problems Condition Codes Effectiv e Dates Condition Status Essential (primary) hypertension ICD-9: 401.1 ICD-10: I10 12/31/2015 Active Mixed hyperlipidemia ICD-9: 272.2 ICD-10: E78.2 02/19/2016 Active Type 2 diabetes nanette itus without complications ICD-9: 250.00 ICD-10: E11.9 02/19/2016 Active Diabetes Unknown 06/16/2016 Active Hypertension Unknown 06/16/2016 Active Elevated prostate sp ecific antigen [PSA] ICD-9: 790.93 ICD-10: R97.2 08/06/2015 Active Essential (primary) hypertension ICD-9: 401.9 ICD-10: I10 02/19/2016 Active Encounter for genera l adult medical examination with abnormal findings ICD-9: V70.0 ICD-10: Z00.01 05/21/2016 Active Acute bronchitis, un specified ICD-9: 466.0 ICD-10: J20.9 04/29/2016 Active Cough ICD-9: 786.2 ICD-10: R05 12/31/2015 Active Other acute sinusitis ICD-9: 461.8 ICD-10: J01.80 04/21/2016 Active Other allergic rhinitis ICD-9: 477.8 ICD-10: J30.89 04/21/2016 Active Primary generalized (osteo)arthritis ICD-9: 715.09 ICD-10: M15.0 02/19/2016 Active Acute bronchitis due to Hemophilus influenzae ICD-9: 466.0 ICD-10: J20.1 12/31/2015 Active Pain in right knee ICD- 9: 719.46 ICD-10: M25.561 11/12/2015 Active VAC STREP PNEUMONIAE -FLU ICD-9: V06.6 ICD-10: Z23 11/12/2015 Active Encounter for immuni zation ICD-9: V04.81 ICD-10: Z23 11/10/2015 Active Medications Medication Codes Instruc tions Start Date Stop Date Sta tus Fill Instructions losartan 50 mg tablet RxNorm: 152199 TAKE ONE TABLET BY MOUTH ONCE DAILY 08/02/2016 01/28/2017 Ac tive metformin 500 mg tablet RxNorm: 803204 TAKE ONE TABLET BY MOUTH TWICE DAILY 07/22/2016 10/19/2016 Ac tive furosemide 20 mg tablet RxNorm: 129387 1 Tablet(s) PO daily as needed for swell ing 07/21/2016 10/18/2016 Ac tive meloxicam 7.5 mg tablet RxNorm: 161008 TAKE ONE TABLET BY MOUTH ONCE DAILY 06/08/2016 12/04/2016 Ac tive cefdinir 300 mg capsule RxNorm: 537764 1 Capsule(s) PO BID 04/29/2016 05/05/2016 Inactive prednisone 20 mg tablet RxNorm: 377542 1 Tablet(s) PO BID 04/29/2016 05/03/2016 Inactive Zithromax Z-Sherif 250 mg tablet RxNorm: 819566 1 Tablet(s) PO UD 04/21/2016 04/28/2016 Inactive Kenalog 40 mg/mL maggie pension for injection RxNorm: 0325224 1 Milliliter(s) Inj 04/21/2016 04/21/2016 In active montelukast 10 mg ta blet RxNorm: 379949 TAKE ONE TABLET BY MO [facility] ONCE DAILY 03/22/2016 09/17/2016 Ac tive fluticasone 50 mcg/a ctuation nasal spray,suspension RxNorm: 5370738 2 [place] NASAL daily each nare 03/15/2016 07/12/2016 Inactive qs metformin 500 mg tablet RxNorm: 685444 1 Tablet(s) PO daily 01/16/2016 2016 Inactive Patient does not need a refill- just upd ate dosing simvastatin 40 mg ta blet RxNorm: 971358 1 Tablet(s) PO daily 01/01/2016 No Stop Date Active Advair Diskus 250 mc g-50 mcg/dose powder for inhalation RxNorm: 7181090 1 INH BID 01/01/2016 04/29/2016 In active Advair Diskus 250 mc g-50 mcg/dose powder for inhalation RxNorm: 1900774 1 INH daily 01/01/2016 12/31/2015 Inactive metformin 500 mg tablet RxNorm: 903282 1 Tablet(s) PO daily 01/01/2016 01/15/2016 Inactive azithromycin 250 mg tablet RxNorm: 119192 1 Tablet(s) PO take t wo pills on day #1, then one pill daily x 4 more days 01/01/2016 02/17/2016 Inactive meloxicam 7.5 mg tablet RxNorm: 485507 1 Tablet(s) PO daily 12/11/2015 06/07/2016 Inactive simvastatin 20 mg ta blet RxNorm: 218145 1 Tablet(s) PO daily 11/21/2015 12/31/2015 Inactive metformin 500 mg tablet RxNorm: 245516 1 Tablet(s) PO BID 11/21/2015 12/31/2015 Inactive Advair Diskus 250 mc g-50 mcg/dose powder for inhalation RxNorm: 5962500 1 INH BID 11/21/2015 12/31/2015 In active montelukast 10 mg ta blet RxNorm: 349378 1 Tablet(s) PO daily 09/25/2015 03/21/2016 Inactive losartan 50 mg tablet RxNorm: 677049 1 Tablet(s) PO daily 09/04/2015 08/01/2016 Inactive Restasis 0.05 % eye drops in a dropperette RxNorm: 164635 1 gtts OPH BID 08/07/2015 No Stop Date Active meloxicam 7.5 mg tablet RxNorm: 879696 1 Tablet(s) PO daily 08/07/2015 09/05/2015 Inactive Kay oral RxNorm: 336277 oral No Start Date Active finasteride 5 mg tablet RxNorm: 634828 1 Tablet(s) PO daily No Start Date Active Zyrtec 10 mg tablet RxNorm: 9995695 1 Tablet(s) PO daily No Start Date Active Co Q-10 200 mg capsule RxNorm: 314934 1 Capsule(s) PO daily No Start Date Active Calcium 500 + D (D3) oral RxNorm: 186162 oral No S tart Date Active simethicone 125 mg c apsule RxNorm: 966313 Capsule(s) PO as needed No Start Date Active Vitamin D3 1,000 uni t tablet RxNorm: 259838 1 Tablet(s) PO daily No Start Date Active omega-3 fatty acids 1,000 mg capsule RxNorm: 4 Capsule(s) PO daily No Start Date Active fluticasone 50 mcg/a ctuation nasal spray,suspension RxNorm: 3820011 2 [place] NASAL daily each nare No Start Date 03/14/2016 Inactive losartan 50 mg tablet RxNorm: 510245 1 Tablet(s) PO daily No Start Date 09/03/2015 Inactive metformin 500 mg tablet RxNorm: 261046 1 Tablet(s) PO daily No Start Date 11/20/2015 Inactive simvastatin 40 mg ta blet RxNorm: 112090 1 Tablet(s) PO daily No Start Date 11/20/2015 Inactive furosemide 20 mg tablet RxNorm: 369194 1 Tablet(s) PO daily as needed No Start Date 07/20/2016 Inactive Advair Diskus 250 mc g-50 mcg/dose powder for inhalation RxNorm: 5609588 1 INH daily No Start Date 11/20/2015 Inactive Multiple Vitamin oral RxNorm: 34849 oral No Start Date 12/31/2015 Inactive montelukast 10 mg ta blet RxNorm: 334180 1 Tablet(s) PO daily No Start Date 09/24/2015 Inactive Medication Administered Medication Codes Instruc tions Start Date Status Kenalog 40 mg/mL suspension for injection RxNorm: 8579633 1Milliliter 04/21/2016 N o longer Active Immunizations Vaccine Codes Date Status Pneumococcal (Adult) CVX: 133 11/13/2015 completed Influenza CVX: 141 11/10 completed Pneumococcal CVX: 33 completed Zoster CVX: 121 02/14/20 13 completed Assessments Condition Codes Effectiv e Dates Mixed hyperlipidemia ICD-10: E78.2 ICD-9: 272.2 06/18/2016 Essential (primary) hypertension ICD -10: I10 ICD-9: 401.1 06/18/2016 Type 2 diabetes mellitus without complications ICD-10: E11.9 ICD-9: 250.00 06/18/2016 Essential (primary) hypertension ICD -10: I10 ICD-9: 401.9 06/16/2016 Elevated prostate specific antigen [PSA] ICD-10: R97.2 ICD-9: 790.93 06/16/2016 Encounter for general adult medical exam ination with abnormal findings ICD-10: Z00.01 ICD-9: V70.0 05/21/2016 Cough ICD-10: R05 ICD-9: 786.2 04/29/2016 Acute bronchitis, unspecified ICD-10 : J20.9 ICD-9: 466.0 04/29/2016 Other allergic rhinitis ICD-10: J30. 89 ICD-9: 477.8 04/21/2016 Other acute sinusitis ICD-10: J01.80 ICD-9: 461.8 04/21/2016 Primary generalized (osteo)arthritis ICD-10: M15.0 ICD-9: 715.09 02/20/2016 Acute bronchitis due to Hemophilus influenzae ICD-10: J20.1 ICD-9: 466.0 01/01/2016 Pain in right knee ICD-10: M25.561 ICD-9: 719.46 11/13/2015 VAC STREP PNEUMONIAE-FLU ICD-10: Z23 ICD-9: V06.6 11/13/2015 Encounter for immunization ICD-10: Z 23 ICD-9: V04.81 11/11/2015 Reason For Visit Reason For Visit Effective Dates Notes hypertension 06/18/2016 Annual Medicare Wellness Exam 05/21/2016 sinus congestion 04/29/2016 sinus congestion 04/21/2016 hypertension 02/20/2016 cough 01/01/2016 knee pain 11/13/2015 vaccination against influenza 11/11/2015 hypertension 11/07/2015 hypertension 08/07/2015 Results Observation Observation Code Item Item Code Result Date Tsh Ord6 hTSH II 2.91 uIU/mL 06/17/2016 Cbc With Differential Ord2 WBC 5.78 K/ul 06/17/2016 Cbc With Differential Ord2 RBC 3.98 M/ul 06/17/2016 Cbc With Differential Ord2 HGB 13.0 g/dl 06/17/2016 Cbc With Differential Ord2 HCT 38.0 % 06/17/2016 Cbc With Differential Ord2 Neut% 56.2 % 06/17/2016 Cbc With Differential Ord2 Lymph% 29.6 % 06/17/2016 Cbc With Differential Ord2 MCV 95.5 fl 06/17/2016 Cbc With Differential Ord2 MCH 32.7 pg 06/17/2016 Cbc With Differential Ord2 [place]% 10.7 % 06/17/2016 Cbc With Differential Ord2 MCHC 34.2 pg 06/17/2016 Cbc With Differential Ord2 Eos% 3.3 % 06/17/2016 Cbc With Differential Ord2 PLT 211 K/ul 06/17/2016 Cbc With Differential Ord2 Baso% 0.2 % 06/17/2016 Cbc With Differential Ord2 Neut ABS# 3.25 K/ul 06/17/2016 Cbc With Differential Ord2 RDW 14.1 % 06/17/2016 Cbc With Differential Ord2 Lymph ABS# 1.71 K/ul 06/17/2016 Cbc With Differential Ord2 [place] ABS# 0.6 K/ul 06/17/2016 Cbc With Differential Ord2 Eos ABS# 0.2 K/ul 06/17/2016 Cbc With Differential Ord2 Baso ABS# 0.0 K/ul 06/17/2016 Total Psa Ord10 PSA 0.00 ng/mL 06/17/2016 %Hba1C Ikl563 % HbA1c 76071-6 6.0 % 06/17/2016 %Hba1C Alg495 Gluc Ave 126 mg/dL 06/17/2016 Lipid Ord30 CHOL 163 mg/dL 06/17/2016 Lipid Ord30 HDL 54.0 mg/dl 06/17/2016 Lipid Ord30 TRIG 133 mg/dL 06/17/2016 Lipid Ord30 LDL 82 mg/dL 06/17/2016 Lipid Ord30 C/HDL 3.0 Ratio 06/17/2016 Comp Metabolic Jwy292 NA 143 mEq/L 06/17/2016 Comp Metabolic Yxl689 K 4.1 mEq/L 06/17/2016 Comp Metabolic Jts173 CL 108 mEq/L 06/17/2016 Comp Metabolic Xoc848 CO2 28.0 mEq/L 06/17/2016 Comp Metabolic Fbv446 AN ION GAP 11 06/17/2016 Comp Metabolic Xnc284 GL UCOSE 106 mg/dL 06/17/2016 Comp Metabolic Sxa147 Cr eat 0.9 mg/dL 06/17/2016 Comp Metabolic Sdc869 eG FR 92 ml/min/1.73m2 06/17 Comp Metabolic Ffa312 BUN 22 mg/dL 06/17/2016 Comp Metabolic Iwv807 B/ C Ratio 25.9 Ratio 06/17/2016 Comp Metabolic Gkg565 CA LCIUM 8.8 mg/dL 06/17/2016 Comp Metabolic Wvh232 AL K PHOS 55 U/L 06/17/2016 Comp Metabolic Kty291 T(SGOT) 21 U/L 06/17/2016 Comp Metabolic Tkz407 AL T(SGPT) 24 U/L 06/17/2016 Comp Metabolic Wvo999 BI LI T 0.6 mg/dL 06/17/2016 Comp Metabolic Oup238 AL BUMIN 4.0 g/dL 06/17/2016 Comp Metabolic Jxz195 TP RO 6.2 g/dL 06/17/2016 Comp Metabolic Nfi697 GL OB 2.2 g/dL 06/17/2016 Comp Metabolic Krq195 A/ G Ratio 1.8 Ratio 06/17/2016 Comp Metabolic Eiv040 Os mo 289 mOsmo 06/17/2016 %Hba1C Fsr503 % HbA1c 34131-9 5.8 % 02/19/2016 %Hba1C Mym819 Gluc Ave 120 mg/dL 02/19/2016 Tsh Ord6 hTSH II 2.45 uIU/mL 02/19/2016 Comp Metabolic Eni110 NA 141 mEq/L 02/19/2016 Comp Metabolic Yfh392 K 4.2 mEq/L 02/19/2016 Comp Metabolic Pbh271 CL 107 mEq/L 02/19/2016 Comp Metabolic Owd822 CO2 29.0 mEq/L 02/19/2016 Comp Metabolic Wyo684 AN ION GAP 9 02/19/2016 Comp Metabolic Fri689 GL UCOSE 106 mg/dL 02/19/2016 Comp Metabolic Cnr573 Cr eat 0.9 mg/dL 02/19/2016 Comp Metabolic Yej199 eG FR 90 ml/min/1.73m2 02/18 Comp Metabolic Eug085 BUN 24 mg/dL 02/19/2016 Comp Metabolic Ucm269 B/ C Ratio 27.6 Ratio 02/19/2016 Comp Metabolic Lvr485 CA LCIUM 9.1 mg/dL 02/19/2016 Comp Metabolic Ixf120 AL K PHOS 67 U/L 02/19/2016 Comp Metabolic Mjj103 T(SGOT) 25 U/L 02/19/2016 Comp Metabolic Dau813 AL T(SGPT) 31 U/L 02/19/2016 Comp Metabolic Zbt724 BI LI T 0.6 mg/dL 02/19/2016 Comp Metabolic Pbw840 AL BUMIN 4.1 g/dL 02/19/2016 Comp Metabolic Knx394 TP RO 6.5 g/dL 02/19/2016 Comp Metabolic Oak993 GL OB 2.4 g/dL 02/19/2016 Comp Metabolic Htp631 A/ G Ratio 1.7 Ratio 02/19/2016 Comp Metabolic Nhi847 Os mo 286 mOsmo 02/19/2016 Cbc With Differential Ord2 WBC 5.92 K/ul 02/19/2016 Cbc With Differential Ord2 RBC 4.13 M/ul 02/19/2016 Cbc With Differential Ord2 HGB 13.1 g/dl 02/19/2016 Cbc With Differential Ord2 Neut% 57.2 % 02/19/2016 Cbc With Differential Ord2 HCT 39.3 % 02/19/2016 Cbc With Differential Ord2 Lymph% 26.9 % 02/19/2016 Cbc With Differential Ord2 MCV 95.2 fl 02/19/2016 Cbc With Differential Ord2 [place]% 10.5 % 02/19/2016 Cbc With Differential Ord2 MCH 31.7 pg 02/19/2016 Cbc With Differential Ord2 Eos% 5.1 % 02/19/2016 Cbc With Differential Ord2 MCHC 33.3 pg 02/19/2016 Cbc With Differential Ord2 PLT 239 K/ul 02/19/2016 Cbc With Differential Ord2 Baso% 0.3 % 02/19/2016 Cbc With Differential Ord2 RDW 13.4 % 02/19/2016 Cbc With Differential Ord2 Neut ABS# 3.39 K/ul 02/19/2016 Cbc With Differential Ord2 Lymph ABS# 1.59 K/ul 02/19/2016 Cbc With Differential Ord2 [place] ABS# 0.6 K/ul 02/19/2016 Cbc With Differential Ord2 Eos ABS# 0.3 K/ul 02/19/2016 Cbc With Differential Ord2 Baso ABS# 0.0 K/ul 02/19/2016 Lipid Ord30 CHOL 174 mg/dL 02/19/2016 Lipid Ord30 HDL 54.0 mg/dl 02/19/2016 Lipid Ord30 TRIG 110 mg/dL 02/19/2016 Lipid Ord30 LDL 98 mg/dL 02/19/2016 Lipid Ord30 C/HDL 3.2 Ratio 02/19/2016 %Hba1C Run928 % HbA1c 39830-7 6.0 % 11/11/2015 %Hba1C Mij889 Gluc Ave 126 mg/dL 11/11/2015 %Hba1C Xwe838 % HbA1c 03412-6 6.0 % 11/07/2015 %Hba1C Zub197 Gluc Ave 126 mg/dL 11/07/2015 Tsh Ord6 hTSH II 2.59 uIU/mL 11/06/2015 Lipid Ord30 CHOL 159 mg/dL 11/06/2015 Lipid Ord30 HDL 42.0 mg/dl 11/06/2015 Lipid Ord30 TRIG 129 mg/dL 11/06/2015 Lipid Ord30 LDL 91 mg/dL 11/06/2015 Lipid Ord30 C/HDL 3.8 Ratio 11/06/2015 Comp Metabolic Qzm798 NA 141 mEq/L 11/06/2015 Comp Metabolic Vlu234 K 4.3 mEq/L 11/06/2015 Comp Metabolic Onu396 CL 107 mEq/L 11/06/2015 Comp Metabolic Mtv614 CO2 28.0 mEq/L 11/06/2015 Comp Metabolic Iln335 AN ION GAP 10 11/06/2015 Comp Metabolic Vas904 GL UCOSE 117 mg/dL 11/06/2015 Comp Metabolic Pbj682 Cr eat 0.9 mg/dL 11/06/2015 Comp Metabolic Uxj776 eG FR 88 ml/min/1.73m2 11/05 Comp Metabolic Iog878 BUN 22 mg/dL 11/06/2015 Comp Metabolic Hqb458 B/ C Ratio 25.0 Ratio 11/06/2015 Comp Metabolic Zhl588 CA LCIUM 9.1 mg/dL 11/06/2015 Comp Metabolic Vpv334 AL K PHOS 59 U/L 11/06/2015 Comp Metabolic Kop891 T(SGOT) 23 U/L 11/06/2015 Comp Metabolic Urv388 AL T(SGPT) 26 U/L 11/06/2015 Comp Metabolic Rpe962 BI LI T 0.6 mg/dL 11/06/2015 Comp Metabolic Swt226 AL BUMIN 4.0 g/dL 11/06/2015 Comp Metabolic Izm676 TP RO 6.4 g/dL 11/06/2015 Comp Metabolic Vwl539 GL OB 2.4 g/dL 11/06/2015 Comp Metabolic Roi827 A/ G Ratio 1.7 Ratio 11/06/2015 Comp Metabolic Itq597 Os mo 286 mOsmo 11/06/2015 Cbc With Differential Ord2 WBC 5.97 K/ul 11/06/2015 Cbc With Differential Ord2 RBC 4.19 M/ul 11/06/2015 Cbc With Differential Ord2 HGB 13.4 g/dl 11/06/2015 Cbc With Differential Ord2 Neut% 55.0 % 11/06/2015 Cbc With Differential Ord2 HCT 39.3 % 11/06/2015 Cbc With Differential Ord2 Lymph% 30.0 % 11/06/2015 Cbc With Differential Ord2 MCV 93.8 fl 11/06/2015 Cbc With Differential Ord2 MCH 32.0 pg 11/06/2015 Cbc With Differential Ord2 [place]% 9.5 % 11/06/2015 Cbc With Differential Ord2 Eos% 5.2 % 11/06/2015 Cbc With Differential Ord2 MCHC 34.1 pg 11/06/2015 Cbc With Differential Ord2 PLT 206 K/ul 11/06/2015 Cbc With Differential Ord2 Baso% 0.3 % 11/06/2015 Cbc With Differential Ord2 Neut ABS# 3.28 K/ul 11/06/2015 Cbc With Differential Ord2 RDW 14.1 % 11/06/2015 Cbc With Differential Ord2 Lymph ABS# 1.79 K/ul 11/06/2015 Cbc With Differential Ord2 [place] ABS# 0.6 K/ul 11/06/2015 Cbc With Differential Ord2 Eos ABS# 0.3 K/ul 11/06/2015 Cbc With Differential Ord2 Baso ABS# 0.0 K/ul 11/06/2015 Lipid Ord30 CHOL 127 mg/dL 08/08/2015 Lipid Ord30 HDL 34.0 mg/dl 08/08/2015 Lipid Ord30 TRIG 93 mg/dL 08/08/2015 Lipid Ord30 LDL 74 mg/dL 08/08/2015 Lipid Ord30 C/HDL 3.7 Ratio 08/08/2015 Cbc With Differential Ord2 WBC 5.14 K/ul 08/08/2015 Cbc With Differential Ord2 RBC 4.27 M/ul 08/08/2015 Cbc With Differential Ord2 HGB 13.4 g/dl 08/08/2015 Cbc With Differential Ord2 HCT 40.0 % 08/08/2015 Cbc With Differential Ord2 Neut% 55.0 % 08/08/2015 Cbc With Differential Ord2 MCV 93.7 fl 08/08/2015 Cbc With Differential Ord2 Lymph% 29.4 % 08/08/2015 Cbc With Differential Ord2 [place]% 10.9 % 08/08/2015 Cbc With Differential Ord2 MCH 31.4 pg 08/08/2015 Cbc With Differential Ord2 Eos% 4.3 % 08/08/2015 Cbc With Differential Ord2 MCHC 33.5 pg 08/08/2015 Cbc With Differential Ord2 Baso% 0.4 % 08/08/2015 Cbc With Differential Ord2 PLT 205 K/ul 08/08/2015 Cbc With Differential Ord2 RDW 13.6 % 08/08/2015 Cbc With Differential Ord2 Neut ABS# 2.83 K/ul 08/08/2015 Cbc With Differential Ord2 Lymph ABS# 1.51 K/ul 08/08/2015 Cbc With Differential Ord2 [place] ABS# 0.6 K/ul 08/08/2015 Cbc With Differential Ord2 Eos ABS# 0.2 K/ul 08/08/2015 Cbc With Differential Ord2 Baso ABS# 0.0 K/ul 08/08/2015 %Hba1C Lbk497 % HbA1c 52314-5 5.7 % 08/08/2015 %Hba1C Cws285 Gluc Ave 117 mg/dL 08/08/2015 Tsh Ord6 hTSH II 3.19 uIU/mL 08/08/2015 Comp Metabolic Hgv610 NA 140 mEq/L 08/08/2015 Comp Metabolic Umc192 K 4.0 mEq/L 08/08/2015 Comp Metabolic Rbe178 CL 108 mEq/L 08/08/2015 Comp Metabolic Fhl652 CO2 25.0 mEq/L 08/08/2015 Comp Metabolic Yxp739 AN ION GAP 11 08/08/2015 Comp Metabolic Sgl242 GL UCOSE 100 mg/dL 08/08/2015 Comp Metabolic Pxk848 Cr eat 0.9 mg/dL 08/08/2015 Comp Metabolic Uwx059 eG FR 82 ml/min/1.73m2 08/07 Comp Metabolic Zxw233 BUN 19 mg/dL 08/08/2015 Comp Metabolic Moo917 B/ C Ratio 20.2 Ratio 08/08/2015 Comp Metabolic Qjx811 CA LCIUM 8.5 mg/dL 08/08/2015 Comp Metabolic Scl075 AL K PHOS 56 U/L 08/08/2015 Comp Metabolic Zbv906 T(SGOT) 18 U/L 08/08/2015 Comp Metabolic Sbz058 AL T(SGPT) 17 U/L 08/08/2015 Comp Metabolic Odm640 BI LI T 0.7 mg/dL 08/08/2015 Comp Metabolic Ubw543 AL BUMIN 3.9 g/dL 08/08/2015 Comp Metabolic Jqc717 TP RO 6.2 g/dL 08/08/2015 Comp Metabolic Uad940 GL OB 2.3 g/dL 08/08/2015 Comp Metabolic Qlm401 A/ G Ratio 1.7 Ratio 08/08/2015 Comp Metabolic Pcg424 Os mo 282 mOsmo 08/08/2015 Review of Systems System Result Effective Dates Constitutional No recent illness 06/18/2016 Constitutional No [...] Result Effective Dates Notes Full Exam - General 1994 Constitutional general [...] clear 08/07/2015 None Full Exam - General 1995 Eyes pupils and irises Overall: pupils equal, round, reactive to light and accomodation 08/07/2015 None Procedures Procedure Codes Date PPPS, SUBSEQ VISIT CPT-4: [id number] 05/21/2016 TRIAMCINOLONE ACET I [place] NOS CPT-4: K5417Gzewalp 04/21/2016 THER/PROPH/DIAG INJ SC/IM CPT-4: 37511Zfflfwa 04/21/2016 DRAIN/INJECT JOINT/B URSA CPT-4: 50489Hpqkgrl 11/13/2015 PNEUMOCOCCAL VACC [address]: 43275468 CPT-4: 11922Pbpbrwv 11/13/2015 ADMIN PNEUMOCOCCAL V ACCINE SNOMED CT: 84156058 CPT-4: Y1426Jktwbjq 11/13/2015 ADMIN INFLUENZA VIRU S VAC CPT-4: W2312Swjhcjw 11/11/2015 FLU VACC 4 AZUL 3 YRS PLUS IM SNOMED CT: 58737399 CPT-4: 27498Fijszlc 11/11/2015 Vital Signs Date Vital 06/18/2016 Blood Pressure 1: 132/76 Code: 8480-6 BMI: 26.2 Code: 10727-3 Heart Rate 1: 65 bpm Height: 5'7" SpO2: 95% Weight: 167 lbs 8 oz 05/21/2016 Blood Pressure 1: 126/76 Code: 8480-6 BMI: 26.0 Code: 32666-9 Heart Rate 1: 72 bpm Height: 5'7" SpO2: 98% Weight: 166 lbs 04/29/2016 Blood Pressure 1: 128/70 Code: 8480-6 BMI: 25.7 Code: 70711-8 Heart Rate 1: 67 bpm Height: 5'7" SpO2: 97% Temperature: 36.3 (C ) / 97.4 (F) Weight: 164 lbs 04/21/2016 Blood Pressure 1: 130/62 Code: 8480-6 BMI: 26.3 Code: 61492-4 Heart Rate 1: 74 bpm Height: 5'7" SpO2: 96% Temperature: 37.0 (C ) / 98.6 (F) Weight: 168 lbs 02/20/2016 Blood Pressure 1: 120/64 Code: 8480-6 BMI: 26.2 Code: 62205-7 Heart Rate 1: 65 bpm Height: 5'7" SpO2: 94% Weight: 167 lbs 01/01/2016 Blood Pressure 1: 106/60 Code: 8480-6 BMI: 25.7 Code: 94076-0 Heart Rate 1: 73 bpm Height: 5'7" SpO2: 98% Weight: 164 lbs 11/13/2015 Blood Pressure 1: 122/86 Code: 8480-6 BMI: 25.8 Code: 48342-8 Heart Rate 1: 80 bpm Height: 5'7" SpO2: 92% Weight: 165 lbs 11/07/2015 Blood Pressure 1: 118/64 Code: 8480-6 BMI: 25.8 Code: 42515-5 Heart Rate 1: 66 bpm Height: 5'7" SpO2: 95% Weight: 165 lbs 08/07/2015 Blood Pressure 1: 122/80 Code: 8480-6 BMI: 24.4 Code: 59939-9 Heart Rate 1: 74 bpm Height: 5'7" SpO2: 94% Weight: 156 lbs Functional Status No Functional Status data History of Present Illness Symptom Name Status Resu lt Effective Date Notes hypertension Quality sta ble 06/18/2016 None hypertension [...] Encounters Encounter Performer Loca tion Codes Date ([id number]) [id number] EST. P ATIENT, LEVEL IV Diagnosis: Essential (primary) hypertension[ICD10: I10] Diagnosis: Type 2 diabetes mellitus without complications[ICD10: E11.9] Diagnosis: Mixed hyperlipidemia[ICD10: E78.2] Nancy Hoskins MD, [facility] CPT-4: 82032 06/18/2016 ([id number]) 26436 EST. P ATIENT, LEVEL III Diagnosis: Cough[ICD10: R05] Diagnosis: Acute bronchitis, unspecified[ICD10: J20.9] Nancy Hoskins MD, [facility] CPT-4: 74850 04/29/2016 [id number] EST. PATIENT, LEVEL IV Diagnosis: Other acute sinusitis[ICD10: J01.80] Diagnosis: Other allergic rhinitis[ICD10: J30.89] Lakeisha Hoskins MD, [facility] CPT-4: 60476 04/21/2016 ([id number]) 60113 EST. P ATIENT, LEVEL IV Diagnosis: Essential (primary) hypertension[ICD10: I10] Diagnosis: Type 2 diabetes mellitus without complications[ICD10: E11.9] Diagnosis: Mixed hyperlipidemia[ICD10: E78.2] Diagnosis: Primary generalized (osteo)arthritis[ICD10: M15.0] Nancy Hoskins MD, [facility] CPT-4: 19979 02/20/2016 ([id number]) 53358 EST. P ATIENT, LEVEL IV Diagnosis: Cough[ICD10: R05] Diagnosis: Acute bronchitis due to Hemophilus influenzae[ICD10: J20.1] Diagnosis: Type 2 diabetes mellitus without complications[ICD10: E11.9] Diagnosis: Essential (primary) hypertension[ICD10: I10] Charlene Hoskins MD, [facility] CPT-4: 87570 01/01/2016 ([id number]) 52168 EST. P ATIENT, LEVEL IV Diagnosis: Essential (primary) hypertension[ICD10: I10] Diagnosis: Mixed hyperlipidemia[ICD10: E78.2] Diagnosis: Type 2 diabetes mellitus without complications[ICD10: E11.9] [facility] CPT-4: 51454 11/07/2015 OFFICE VISIT, NEW - LEVEL 4 Diagnosis: Type 2 diabetes mellitus without complications[ICD10: E11.9] Diagnosis: Essential (primary) hypertension[ICD10: I10] Diagnosis: Mixed hyperlipidemia[ICD10: E78.2] Diagnosis: Elevated prostate specific antigen [PSA][ICD10: R97.2] [facility] CPT-4: 36590 08/07/2015 Plan of Care Planned Activity Notes C odes Status Date Appointment: Nancy Tavares WPtel: [phone] [phone] (15 min) Moderate 06/18/2016 Patient Education: Patient Medication Summary Completed 06/18/2016 Patient Education: Patient Medication Summary Completed 06/16/2016 Patient Education: Patient Medication Summary Completed 05/21/2016 Appointment: Nancy Tavares WPtel: [phone] [phone] [place] (15 min) Moderate 04/29/2016 Patient Education: Patient Medication Summary Completed 04/29/2016 Care Plan: CHEST X-RAY 2VW FRONTAL&LATL LOINC : 96999-5 Pending 04/29/2016 Appointment: [place] [place] WPtel: [id number] [place] (15 min) Moderate 04/21/2016 Patient Education: Patient Medication Summary Completed 04/21/2016 Appointment: Nancy Tavares WPtel: [phone] [id number] [place] (30 min) Complex 02/20/2016 Patient Education: Patient Medication Summary Completed 02/20/2016 Appointment: Charlene Hoskins WPtel: [id number] (15 min) Moderate 01/01/2016 Patient Education: Patient Medication Summary Completed 01/01/2016 App[facility]ment[phone] [place] Moderate 11/13/2015 Patient Education: Patient Medication Summary Completed 11/13/2015 Appointment: Injection 11/11/2015 Patient Education: Patient Medication Summary Completed 11/11/2015 Appointment: Nancy Tavares WPtel: [id number] (15 min) Moderate 11/07/2015 Patient Education: Patient Medication Summary Completed 11/07/2015 Appointment: Nancy Tavares [facility]el[phone] [place] 08/07/2015 Patient Education: Patient Medication Summary Completed 08/07/2015 Instructions No Instructions
--- OUTSIDE RECORDS SUMMARY | 2019-04-11 03:33 | XMS REPORT | CCD ---
Author Author Cesar Tavares Organization Charlene Hoskins MD, [facility] Address [address] [place] [address] Phone Care Team Providers Care Sensor Specialist Name Role Phone PP Unavailable CCM Unavailable Summary Purpose Interface Exchange Insurance Providers Payer name Policy type / Coverage type Covered republican ID Effective Begin Date Effective End Date WPS Medicare Part B Medicare Part B [id number] Unknown Unknown [facility] icare Part B [id number] Unknown Unk nown Family history Sister Diagnosis [...] Retir ed 08/07/[address]: 7052506 Quit over 10 years ago 1970 08/07/[address]: 563699938 Never drinks alcohol 08/07/2015 Allergies, Adverse Reactions, [...] Date Stop Date Sta tus Fill Instructions furosemide 20 mg tablet RxNorm: 598504 1 Tablet(s) PO daily as needed for swell ing 07/21/2016 10/18/2016 Ac tive meloxicam 7.5 mg tablet RxNorm: 059838 TAKE ONE TABLET BY MOUTH ONCE DAILY 06/08/2016 12/04/2016 Ac tive cefdinir 300 mg capsule RxNorm: 363575 1 Capsule(s) PO BID 04/29/2016 05/05/2016 Inactive prednisone 20 mg tablet RxNorm: 158283 1 Tablet(s) PO BID 04/29/2016 05/03/2016 Inactive Zithromax Z-Sherif 250 mg tablet RxNorm: 743302 1 Tablet(s) PO UD 04/21/2016 04/28/2016 Inactive Kenalog 40 mg/mL maggie pension for injection RxNorm: 2907142 1 Milliliter(s) Inj 04/21/2016 04/21/2016 In active montelukast 10 mg ta blet RxNorm: 568472 TAKE ONE TABLET BY [facility] ONCE DAILY 03/22/2016 09/17/2016 Ac tive fluticasone 50 mcg/a ctuation nasal spray,suspension RxNorm: 1175955 2 [place] NASAL daily each nare 03/15/2016 07/12/2016 Inactive qs metformin 500 mg tablet RxNorm: 292602 1 Tablet(s) PO daily 01/16/2016 2016 Inactive Patient does not need a refill- just upd ate dosing simvastatin 40 mg ta blet RxNorm: 442338 1 Tablet(s) PO daily 01/01/2016 No Stop Date Active Advair Diskus 250 mc g-50 mcg/dose powder for inhalation RxNorm: 0587471 1 INH BID 01/01/2016 04/29/2016 In active Advair Diskus 250 mc g-50 mcg/dose powder for inhalation RxNorm: 4073849 1 INH daily 01/01/2016 12/31/2015 Inactive metformin 500 mg tablet RxNorm: 240222 1 Tablet(s) PO daily 01/01/2016 01/15/2016 Inactive azithromycin 250 mg tablet RxNorm: 287940 1 Tablet(s) PO take t wo pills on day #1, then one pill daily x 4 more days 01/01/2016 02/17/2016 Inactive meloxicam 7.5 mg tablet RxNorm: 504724 1 Tablet(s) PO daily 12/11/2015 06/07/2016 Inactive simvastatin 20 mg ta blet RxNorm: 829615 1 Tablet(s) PO daily 11/21/2015 12/31/2015 Inactive metformin 500 mg tablet RxNorm: 022906 1 Tablet(s) PO BID 11/21/2015 12/31/2015 Inactive Advair Diskus 250 mc g-50 mcg/dose powder for inhalation RxNorm: 8239859 1 INH BID 11/21/2015 12/31/2015 In active montelukast 10 mg ta blet RxNorm: 455401 1 Tablet(s) PO daily 09/25/2015 03/21/2016 Inactive losartan 50 mg tablet RxNorm: 339922 1 Tablet(s) PO daily 09/04/2015 08/28/2016 Active Restasis 0.05 % eye drops in a dropperette RxNorm: 323720 1 gtts OPH BID 08/07/2015 No Stop Date Active meloxicam 7.5 mg tablet RxNorm: 029094 1 Tablet(s) PO daily 08/07/2015 09/05/2015 Inactive Kay oral RxNorm: 237478 oral No Start Date Active finasteride 5 mg tablet RxNorm: 225346 1 Tablet(s) PO daily No Start Date Active Zyrtec 10 mg tablet RxNorm: 4328259 1 Tablet(s) PO daily No Start Date Active Co Q-10 200 mg capsule RxNorm: 809239 1 Capsule(s) PO daily No Start Date Active Calcium 500 + D (D3) oral RxNorm: 173935 oral No S tart Date Active simethicone 125 mg c apsule RxNorm: 956800 Capsule(s) PO as needed No Start Date Active Vitamin D3 1,000 uni t tablet RxNorm: 141590 1 Tablet(s) PO daily No Start Date Active omega-3 fatty acids 1,000 mg capsule RxNorm: 4 Capsule(s) PO daily No Start Date Active fluticasone 50 mcg/a ctuation nasal spray,suspension RxNorm: 1813842 2 [place] NASAL daily each nare No Start Date 03/14/2016 Inactive losartan 50 mg tablet RxNorm: 390036 1 Tablet(s) PO daily No Start Date 09/03/2015 Inactive metformin 500 mg tablet RxNorm: 933556 1 Tablet(s) PO daily No Start Date 11/20/2015 Inactive simvastatin 40 mg ta blet RxNorm: 124723 1 Tablet(s) PO daily No Start Date 11/20/2015 Inactive furosemide 20 mg tablet RxNorm: 332345 1 Tablet(s) PO daily as needed No Start Date 07/20/2016 Inactive Advair Diskus 250 mc g-50 mcg/dose powder for inhalation RxNorm: 8088202 1 INH daily No Start Date 11/20/2015 Inactive Multiple Vitamin oral RxNorm: 54409 oral No Start Date 12/31/2015 Inactive montelukast 10 mg ta blet RxNorm: 128985 1 Tablet(s) PO daily No Start Date 09/24/2015 Inactive Medication Administered Medication Codes Instruc tions Start Date Status Kenalog 40 mg/mL suspension for injection RxNorm: 1807957 1Milliliter 04/21/2016 N o longer Active Immunizations Vaccine Codes Date Status Pneumococcal (Adult) CVX: 133 11/13/2015 completed Influenza CVX: 141 11/10 completed Pneumococcal CVX: 33 completed Zoster CVX: 121 02/14/20 13 completed Assessments Condition Codes Effectiv e Dates Essential (primary) hypertension ICD -10: I10 ICD-9: 401.1 06/18/2016 Type 2 diabetes mellitus without complications ICD-10: E11.9 ICD-9: 250.00 06/18/2016 Mixed hyperlipidemia ICD-10: E78.2 ICD-9: 272.2 06/18/2016 Essential (primary) hypertension ICD -10: I10 ICD-9: 401.9 06/16/2016 Elevated prostate specific antigen [PSA] ICD-10: R97.2 ICD-9: 790.93 06/16/2016 Encounter for general adult medical exam ination with abnormal findings ICD-10: Z00.01 ICD-9: V70.0 05/21/2016 Acute bronchitis, unspecified ICD-10 : J20.9 ICD-9: [...] Observation Code Item Item Code Result Date Comp Metabolic Xxz100 NA 143 mEq/L 06/17/2016 Comp Metabolic Yly303 K 4.1 mEq/L 06/17/2016 Comp Metabolic Sjd600 CL 108 mEq/L 06/17/2016 Comp Metabolic Uhr205 CO2 28.0 mEq/L 06/17/2016 Comp Metabolic Kcd247 AN ION GAP 11 06/17/2016 Comp Metabolic Pow921 GL UCOSE 106 mg/dL 06/17/2016 Comp Metabolic Azg521 Cr eat 0.9 mg/dL 06/17/2016 Comp Metabolic Ogy351 eG FR 92 ml/min/1.73m2 06/17 Comp Metabolic Skg125 BUN 22 mg/dL 06/17/2016 Comp Metabolic Dvi811 B/ C Ratio 25.9 Ratio 06/17/2016 Comp Metabolic Rjx851 CA LCIUM 8.8 mg/dL 06/17/2016 Comp Metabolic Kcy675 AL K PHOS 55 U/L 06/17/2016 Comp Metabolic Xua877 T(SGOT) 21 U/L 06/17/2016 Comp Metabolic Cca524 AL T(SGPT) 24 U/L 06/17/2016 Comp Metabolic Cyi232 BI LI T 0.6 mg/dL 06/17/2016 Comp Metabolic Xlz245 AL BUMIN 4.0 g/dL 06/17/2016 Comp Metabolic Pwh974 TP RO 6.2 g/dL 06/17/2016 Comp Metabolic Vbv335 GL OB 2.2 g/dL 06/17/2016 Comp Metabolic Ute379 A/ G Ratio 1.8 Ratio 06/17/2016 Comp Metabolic Bjk140 Os mo 289 mOsmo 06/17/2016 Lipid Ord30 CHOL 163 mg/dL 06/17/2016 Lipid Ord30 HDL 54.0 mg/dl 06/17/2016 Lipid Ord30 TRIG 133 mg/dL 06/17/2016 Lipid Ord30 LDL 82 mg/dL 06/17/2016 Lipid Ord30 C/HDL 3.0 Ratio 06/17/2016 %Hba1C Tix853 % HbA1c 52051-2 6.0 % 06/17/2016 %Hba1C Fxp011 Gluc Ave 126 mg/dL 06/17/2016 Total Psa Ord10 PSA 0.00 ng/mL 06/17/2016 Cbc With Differential Ord2 WBC 5.78 K/ul 06/17/2016 Cbc With Differential Ord2 RBC 3.98 M/ul 06/17/2016 Cbc With Differential Ord2 HGB 13.0 g/dl 06/17/2016 Cbc With Differential Ord2 Neut% 56.2 % 06/17/2016 Cbc With Differential Ord2 HCT 38.0 % 06/17/2016 Cbc With Differential Ord2 Lymph% 29.6 % 06/17/2016 Cbc With Differential Ord2 MCV 95.5 fl 06/17/2016 Cbc With Differential Ord2 MCH 32.7 pg 06/17/2016 Cbc With Differential Ord2 [place]% 10.7 % 06/17/2016 Cbc With Differential Ord2 [...] 1.71 K/ul 06/17/2016 Cbc With Differential Ord2 [place] ABS# 0.6 K/ul 06/17/2016 Cbc With Differential Ord2 Eos ABS# 0.2 K/ul 06/17/2016 Cbc With Differential Ord2 Baso ABS# 0.0 K/ul 06/17/2016 Tsh Ord6 hTSH II 2.91 uIU/mL 06/17/2016 Tsh Ord6 hTSH II 2.45 uIU/mL 02/19/2016 %Hba1C Ufn734 % HbA1c 55928-3 5.8 % 02/19/2016 %Hba1C Imj331 Gluc Ave 120 mg/dL 02/19/2016 Comp Metabolic Aca220 NA 141 mEq/L 02/19/2016 Comp Metabolic Yoa968 K 4.2 mEq/L 02/19/2016 Comp Metabolic Tnr723 CL 107 mEq/L 02/19/2016 Comp Metabolic Qud264 CO2 29.0 mEq/L 02/19/2016 Comp Metabolic Zlf859 AN ION GAP 9 02/19/2016 Comp Metabolic Mih728 GL UCOSE 106 mg/dL 02/19/2016 Comp Metabolic Nbl953 Cr eat 0.9 mg/dL 02/19/2016 Comp Metabolic Tgo884 eG FR 90 ml/min/1.73m2 02/18 Comp Metabolic Csj742 BUN 24 mg/dL 02/19/2016 Comp Metabolic Mqz321 B/ C Ratio 27.6 Ratio 02/19/2016 Comp Metabolic Nmn963 CA LCIUM 9.1 mg/dL 02/19/2016 Comp Metabolic Qpq403 AL K PHOS 67 U/L 02/19/2016 Comp Metabolic Gxu270 T(SGOT) 25 U/L 02/19/2016 Comp Metabolic Irj596 AL T(SGPT) 31 U/L 02/19/2016 Comp Metabolic Tvb420 BI LI T 0.6 mg/dL 02/19/2016 Comp Metabolic Upw882 AL BUMIN 4.1 g/dL 02/19/2016 Comp Metabolic Ojt285 TP RO 6.5 g/dL 02/19/2016 Comp Metabolic Egp193 GL OB 2.4 g/dL 02/19/2016 Comp Metabolic Ckb282 A/ G Ratio 1.7 Ratio 02/19/2016 Comp Metabolic Pzr078 Os mo 286 mOsmo 02/19/2016 Cbc With [...] 31.7 pg 02/19/2016 Cbc With Differential Ord2 [place]% 10.5 % 02/19/2016 Cbc With Differential Ord2 [...] 1.59 K/ul 02/19/2016 Cbc With Differential Ord2 [place] ABS# 0.6 K/ul 02/19/2016 Cbc With Differential Ord2 Eos ABS# 0.3 K/ul 02/19/2016 Cbc With Differential Ord2 Baso ABS# 0.0 K/ul 02/19/2016 Lipid Ord30 CHOL 174 mg/dL 02/19/2016 Lipid Ord30 HDL 54.0 mg/dl 02/19/2016 Lipid Ord30 TRIG 110 mg/dL 02/19/2016 Lipid Ord30 LDL 98 mg/dL 02/19/2016 Lipid Ord30 C/HDL 3.2 Ratio 02/19/2016 %Hba1C Iff296 % HbA1c 30545-1 6.0 % 11/11/2015 %Hba1C Ksl348 Gluc Ave 126 mg/dL 11/11/2015 %Hba1C Rvi853 % HbA1c 21980-3 6.0 % 11/07/2015 %Hba1C Bsy110 Gluc Ave 126 mg/dL 11/07/2015 Cbc With [...] 32.0 pg 11/06/2015 Cbc With Differential Ord2 [place]% 9.5 % 11/06/2015 Cbc With Differential Ord2 [...] 1.79 K/ul 11/06/2015 Cbc With Differential Ord2 [place] ABS# 0.6 K/ul 11/06/2015 Cbc With Differential Ord2 Eos ABS# 0.3 K/ul 11/06/2015 Cbc With Differential Ord2 Baso ABS# 0.0 K/ul 11/06/2015 Comp Metabolic Kds331 NA 141 mEq/L 11/06/2015 Comp Metabolic Inm345 K 4.3 mEq/L 11/06/2015 Comp Metabolic Tdv569 CL 107 mEq/L 11/06/2015 Comp Metabolic Kgm329 CO2 28.0 mEq/L 11/06/2015 Comp Metabolic Mxi514 AN ION GAP 10 11/06/2015 Comp Metabolic Jkf944 GL UCOSE 117 mg/dL 11/06/2015 Comp Metabolic Lol770 Cr eat 0.9 mg/dL 11/06/2015 Comp Metabolic Hry731 eG FR 88 ml/min/1.73m2 11/05 Comp Metabolic Xli840 BUN 22 mg/dL 11/06/2015 Comp Metabolic Ltx954 B/ C Ratio 25.0 Ratio 11/06/2015 Comp Metabolic Nbk808 CA LCIUM 9.1 mg/dL 11/06/2015 Comp Metabolic Dgx336 AL K PHOS 59 U/L 11/06/2015 Comp Metabolic Bmg150 T(SGOT) 23 U/L 11/06/2015 Comp Metabolic Hdw703 AL T(SGPT) 26 U/L 11/06/2015 Comp Metabolic Xay763 BI LI T 0.6 mg/dL 11/06/2015 Comp Metabolic Evj818 AL BUMIN 4.0 g/dL 11/06/2015 Comp Metabolic Lzz241 TP RO 6.4 g/dL 11/06/2015 Comp Metabolic Yod581 GL OB 2.4 g/dL 11/06/2015 Comp Metabolic Fot197 A/ G Ratio 1.7 Ratio 11/06/2015 Comp Metabolic Nvc580 Os mo 286 mOsmo 11/06/2015 Tsh Ord6 hTSH II 2.59 uIU/mL 11/06/2015 Lipid Ord30 CHOL 159 mg/dL 11/06/2015 Lipid Ord30 HDL 42.0 mg/dl 11/06/2015 Lipid Ord30 TRIG 129 mg/dL 11/06/2015 Lipid Ord30 LDL 91 mg/dL 11/06/2015 Lipid Ord30 C/HDL 3.8 Ratio 11/06/2015 Comp Metabolic Tcb093 NA 140 mEq/L 08/08/2015 Comp Metabolic Ttx115 K 4.0 mEq/L 08/08/2015 Comp Metabolic Rqx509 CL 108 mEq/L 08/08/2015 Comp Metabolic Saw867 CO2 25.0 mEq/L 08/08/2015 Comp Metabolic Fuo740 AN ION GAP 11 08/08/2015 Comp Metabolic Lnj247 GL UCOSE 100 mg/dL 08/08/2015 Comp Metabolic Nfv642 Cr eat 0.9 mg/dL 08/08/2015 Comp Metabolic Hoh885 eG FR 82 ml/min/1.73m2 08/07 Comp Metabolic Dho048 BUN 19 mg/dL 08/08/2015 Comp Metabolic Zcj506 B/ C Ratio 20.2 Ratio 08/08/2015 Comp Metabolic Mfk342 CA LCIUM 8.5 mg/dL 08/08/2015 Comp Metabolic Mku855 AL K PHOS 56 U/L 08/08/2015 Comp Metabolic Dqu300 T(SGOT) 18 U/L 08/08/2015 Comp Metabolic Tux133 AL T(SGPT) 17 U/L 08/08/2015 Comp Metabolic Cpt148 BI LI T 0.7 mg/dL 08/08/2015 Comp Metabolic Gun255 AL BUMIN 3.9 g/dL 08/08/2015 Comp Metabolic Oia808 TP RO 6.2 g/dL 08/08/2015 Comp Metabolic Oin423 GL OB 2.3 g/dL 08/08/2015 Comp Metabolic Mbh407 A/ G Ratio 1.7 Ratio 08/08/2015 Comp Metabolic Khd039 Os mo 282 mOsmo 08/08/2015 Tsh Ord6 hTSH II 3.19 uIU/mL 08/08/2015 %Hba1C Pgs922 % HbA1c 45422-2 5.7 % 08/08/2015 %Hba1C Vqq689 Gluc Ave 117 mg/dL 08/08/2015 Cbc With Differential Ord2 WBC 5.14 K/ul 08/08/2015 Cbc With Differential Ord2 RBC 4.27 M/ul 08/08/2015 Cbc With Differential Ord2 HGB 13.4 g/dl 08/08/2015 Cbc With Differential Ord2 Neut% 55.0 % 08/08/2015 Cbc With Differential Ord2 HCT 40.0 % 08/08/2015 Cbc With Differential Ord2 Lymph% 29.4 % 08/08/2015 Cbc With Differential Ord2 MCV 93.7 fl 08/08/2015 Cbc With Differential Ord2 MCH 31.4 pg 08/08/2015 Cbc With Differential Ord2 [place]% 10.9 % 08/08/2015 Cbc With Differential Ord2 Eos% 4.3 % 08/08/2015 Cbc With Differential Ord2 MCHC 33.5 pg 08/08/2015 Cbc With Differential Ord2 Baso% 0.4 % 08/08/2015 Cbc With Differential Ord2 PLT 205 K/ul 08/08/2015 Cbc With Differential Ord2 RDW 13.6 % 08/08/2015 Cbc With Differential Ord2 Neut ABS# 2.83 K/ul 08/08/2015 Cbc With Differential Ord2 Lymph ABS# 1.51 K/ul 08/08/2015 Cbc With Differential Ord2 [place] ABS# 0.6 K/ul 08/08/2015 Cbc With Differential [...] Procedure Codes Date PPPS, SUBSEQ VISIT CPT-4: Z1029Qbctmxw 05/21/2016 TRIAMCINOLONE ACET I [place] NOS CPT-4: N9570Edlmgyz 04/21/2016 THER/PROPH/DIAG INJ SC/IM CPT-4: 14738Pyqvohy 04/21/2016 DRAIN/INJECT JOINT/B URSA CPT-4: 69743Psrkdga 11/13/2015 PNEUMOCOCCAL VACC [address]: 93479809 CPT-4: 09784Tqrxgen 11/13/2015 ADMIN PNEUMOCOCCAL V ACCINE SNOMED CT: 98627599 CPT-4: Q6407Gzzjxet 11/13/2015 ADMIN INFLUENZA VIRU S VAC CPT-4: S9832Vtwqbxw 11/11/2015 FLU VACC 4 AZUL 3 YRS PLUS IM SNOMED CT: 58614083 CPT-4: 71208Ucrjeyq 11/11/2015 Vital Signs Date Vital 06/18/2016 Blood Pressure 1: 132/76 Code: 8480-6 BMI: 26.2 Code: 17021-7 Heart Rate 1: 65 bpm Height: 5'7" SpO2: 95% Weight: 167 lbs 8 oz 05/21/2016 Blood Pressure 1: 126/76 Code: 8480-6 BMI: 26.0 Code: 39125-9 Heart Rate 1: 72 bpm Height: 5'7" SpO2: 98% Weight: 166 lbs 04/29/2016 Blood Pressure 1: 128/70 Code: 8480-6 BMI: 25.7 Code: 75224-2 Heart Rate 1: 67 bpm Height: 5'7" SpO2: 97% Temperature: 36.3 (C ) / 97.4 (F) Weight: 164 lbs 04/21/2016 Blood Pressure 1: 130/62 Code: 8480-6 BMI: 26.3 Code: 97398-9 Heart Rate 1: 74 bpm Height: 5'7" SpO2: 96% Temperature: 37.0 (C ) / 98.6 (F) Weight: 168 lbs 02/20/2016 Blood Pressure 1: 120/64 Code: 8480-6 BMI: 26.2 Code: 46393-1 Heart Rate 1: 65 bpm Height: 5'7" SpO2: 94% Weight: 167 lbs 01/01/2016 Blood Pressure 1: 106/60 Code: 8480-6 BMI: 25.7 Code: 82711-1 Heart Rate 1: 73 bpm Height: 5'7" SpO2: 98% Weight: 164 lbs 11/13/2015 Blood Pressure 1: 122/86 Code: 8480-6 BMI: 25.8 Code: 18007-3 Heart Rate 1: 80 bpm Height: 5'7" SpO2: 92% Weight: 165 lbs 11/07/2015 Blood Pressure 1: 118/64 Code: 8480-6 BMI: 25.8 Code: 56958-5 Heart Rate 1: 66 bpm Height: 5'7" SpO2: 95% Weight: 165 lbs 08/07/2015 Blood Pressure 1: 122/80 Code: 8480-6 BMI: 24.4 Code: 19013-3 Heart Rate 1: 74 bpm Height: 5'7" [...] Encounters Encounter Performer Loca tion Codes Date ([id number]) [id number] EST. P ATIENT, LEVEL IV Diagnosis: Essential (primary) hypertension[ICD10: I10] Diagnosis: Type 2 diabetes mellitus without complications[ICD10: E11.9] Diagnosis: Mixed hyperlipidemia[ICD10: E78.2] Nancy Hoskins MD, [facility] CPT-4: 48630 06/18/2016 ([id number]) 07322 EST. P ATIENT, LEVEL III Diagnosis: Cough[ICD10: R05] Diagnosis: Acute bronchitis, unspecified[ICD10: J20.9] Nancy Hoskins MD, [facility] CPT-4: 35832 04/29/2016 64221 EST. PATIENT, LEVEL IV Diagnosis: Other acute sinusitis[ICD10: J01.80] Diagnosis: Other allergic rhinitis[ICD10: J30.89] Lakeisha Hoskins MD, [facility] CPT-4: 17996 04/21/2016 ([id number]) 75560 EST. P ATIENT, LEVEL IV Diagnosis: Essential (primary) hypertension[ICD10: I10] Diagnosis: Type 2 diabetes mellitus without complications[ICD10: E11.9] Diagnosis: Mixed hyperlipidemia[ICD10: E78.2] Diagnosis: Primary generalized (osteo)arthritis[ICD10: M15.0] Nancy Hoskins MD, [facility] CPT-4: 87587 02/20/2016 ([id number]) 45640 EST. P ATIENT, LEVEL IV Diagnosis: Cough[ICD10: R05] Diagnosis: Acute bronchitis due to Hemophilus influenzae[ICD10: J20.1] Diagnosis: Type 2 diabetes mellitus without complications[ICD10: E11.9] Diagnosis: Essential (primary) hypertension[ICD10: I10] Charlene Hoskins MD, [facility] CPT-4: 49622 01/01/2016 ([id number]) 18628 EST. P ATIENT, LEVEL IV Diagnosis: Essential (primary) hypertension[ICD10: I10] Diagnosis: Mixed hyperlipidemia[ICD10: E78.2] Diagnosis: Type 2 diabetes mellitus without complications[ICD10: E11.9] Nancy Hoskins MD, [facility] CPT-4: 39402 11/07/2015 OFFICE VISIT, NEW - LEVEL 4 Diagnosis: Type 2 diabetes mellitus without complications[ICD10: E11.9] Diagnosis: Essential (primary) hypertension[ICD10: I10] Diagnosis: Mixed hyperlipidemia[ICD10: E78.2] Diagnosis: Elevated prostate specific antigen [PSA][ICD10: R97.2] [facility] CPT-4: 98323 08/07/2015 Plan of Care Planned Activity Notes C odes Status Date Visit Plan: Hypertension - well controll ed - continue with current medications, continue with no added salt diet. Pt has been encouraged to exercise daily.The pt has been advised to call the office if there are any acute concerns about change in blood pressure readings at home.Diabetes Mellitus - controlled - per recent FSBS [...] glucose readings are starting to become less controlled.Hyperlipidemia - pt has been counseled about appropriate [...] to assure normal liver response to medications. 06/18/2016 Appointment: Nancy Tavares WPtel: [address] [place], [place] [phone] (15 min) Moderate 06/18/2016 Patient Education: Patient Medication Summary Completed 06/18/2016 Patient Education: Patient Medication Summary Completed 06/16/2016 Visit Plan: Medicare Exam - today we dis cussed the patients past history, immunizations, preventative exams/evaluations [...] risk and to maintain independece in the home.Today we discussed the need for the patient to create paperwork for Advanced directives as well as for the patient to provide this office with a copy of her DOPA paperwork for health care surrogate. 2016 Visit Plan: Medicare Exam - today we dis cussed the patients past history, immunizations, preventative exams/evaluations [...] risk and to maintain independece in the home.Today we discussed the need for the patient to create paperwork for Advanced directives as well as for the patient to provide this office with a copy of her DOPA paperwork for health care surrogate. 2016 Patient Education: Patient Medication Summary Completed 05/21/2016 Visit Plan: Bronchitis - acute case of b ronchitis identified. Pt has been given antibiotics, breathing treatments as appropriate, and pt has been instructed to call if symptoms are not improved, or if symptoms acutely worsen. 2016 Appointment: Nancy Tavares WPtel: [address] [place], [place] [phone] (15 min) Moderate 04/29/2016 Patient Education: Patient Medication Summary Completed 04/29/2016 Care Plan: CHEST X-RAY 2VW FRONTAL&LATL LOINC : 19154-1 Pending 04/29/2016 Visit Plan: Sinusitis - Pt has acute inf ection - pain in face, maxillary region, Pt informed to use decongestant, RX given to patient, sinus rinses also recommended. Call if symptoms do not show improvement.Allergies - chronic - recommended pt to use allergy medication as prescribed. Pt has been counseled as to the appropriate use of the medication. Pt to call if allergy symptoms are not controlled with the medication.If using nasal spray, instructions as follows: Nasal spray- use twice daily, one spray per nostril twice daily, after 30 minutes, rinse out nose with saline spray.. Use opposite hand per nostril to spray in the nasal steroid allergy spray. 04/21/2016 Visit Plan: Sinusitis - Pt has acute inf ection - pain in face, maxillary region, Pt informed to use decongestant, RX given to patient, sinus rinses also recommended. Call if symptoms do not show improvement.Allergies - chronic - recommended pt to use allergy medication as prescribed. Pt has been counseled as to the appropriate use of the medication. Pt to call if allergy symptoms are not controlled with the medication.If using nasal spray, instructions as follows: Nasal spray- use twice daily, one spray per nostril twice daily, after 30 minutes, rinse out nose with saline spray.. Use opposite hand per nostril to spray in the nasal steroid allergy spray. 04/21/2016 Appointment: Lakeisha Putnam WPtel: [address] [place], [place] [phone] (15 min) [facility] 04/21/2016 Patient Education: Patient Medication Summary Completed 04/21/2016 Visit Plan: Hypertension - well controll ed - continue with current medications, continue with no added salt diet. Pt has been encouraged to exercise daily.The pt has been advised to call the office if there are any acute concerns about change in blood pressure readings at home.Diabetes Mellitus - controlled - per recent FSBS [...] glucose readings are starting to become less controlled.Hyperlipidemia - pt has been counseled about appropriate [...] and to assure normal liver response to medications.Generalized OA- handicap placard provided 02/20/2016 Appointment: Nancy Tavares WPtel: [phone] [phone] (30 min) Complex 02/20/2016 Patient Education: Patient Medication Summary Completed 02/20/2016 Visit Plan: Bronchitis - acute case of b ronchitis identified. Pt has been given antibiotics, breathing treatments as appropriate, and pt has been instructed to call if symptoms are not improved, or if symptoms acutely worsen.Hypertension - well controlled - continue with current medications, continue with no added salt diet. Pt has been encouraged to exercise daily.The pt has been advised to call the office if there are any acute concerns about change in blood pressure readings at home.Diabetes Mellitus - controlled - per recent FSBS [...] readings are starting to become less controlled. 2015 App[facility]ment[facility] [phone] [facility] (15 min) Moderate 01/01/2016 Patient Education: Patient Medication Summary Completed 01/01/2016 Visit Plan: Joint Injection - Pt was giv en post - injection instructions. The pt has been advised to use anti-inflammatories post injection today, ice to the injected site, call if redness, warmth, or increased pain occurs at the site of injection. 11/13/2015 Visit Plan: Joint Injection - Pt was giv en post - injection instructions. The pt has been advised to use anti-inflammatories post injection today, ice to the injected site, call if redness, warmth, or increased pain occurs at the site of injection. 11/13/2015 Visit Plan: Joint Injection - Pt was giv en post - injection instructions. The pt has been advised to use anti-inflammatories post injection today, ice to the injected site, call if redness, warmth, or increased pain occurs at the site of injection. 11/13/2015 [facility]ment: [facility] [phone] [phone] (15 min) Moderate 11/13/2015 Patient Education: Patient Medication Summary Completed 11/13/2015 Appointment: Injection 11/11/2015 Patient Education: Patient Medication Summary Completed 11/11/2015 Visit Plan: Hypertension - well controll ed - continue with current medications, continue with no added salt diet. Pt has been encouraged to exercise daily.The pt has been advised to call the office if there are any acute concerns about change in blood pressure readings at home.Hyperlipidemia - pt has been counseled about appropriate [...] and to assure normal liver response to medications.DM-too early for Hgb [id number] to have done next week 2015 Appointment: [facility] Tavares [facility]el[facility] [phone] [phone] (15 min) Moderate 11/07/2015 Patient Education: Patient Medication Summary Completed 11/07/2015 Visit Plan: Diabetes Mellitus - controll ed - per recent FSBS reports. I have [...] glucose readings are starting to become less controlled.Hypertension - well controlled - continue with current medications, continue with no added salt diet. Pt has been encouraged to exercise daily.The pt has been advised to call the office if there are any acute concerns about change in blood pressure readings at home.Hyperlipidemia - pt has been counseled about appropriate [...] and to assure normal liver response to medications.Elevated PSA-awaiting biopsy results 08/07/2015 Appointment: [facility]ait[facility] [phone] [facility] [place] New Patient 08/07/2015 Patient Education: Patient Medication Summary Completed 08/07/2015 Instructions Comment . Joint Injection - Pt was given [...] assure normal liver response to medications. . Medicare Exam - to day we [...] her DOPA paperwork for health care surrogate. RETURN FOR FASTING L ABS . Diabetes [...] response to medications. DM-too early for Hgb O3h-hmfigpi to have done next week CXR STOP SYMBICORT TWO PUFFS BID . Bronchitis - acute case of bronchitis identified. Pt has been given antibiotics, breathing treatments as appropriate, and pt has been instructed to call if symptoms are not improved, or if symptoms acutely worsen.
--- OUTSIDE RECORDS SUMMARY | 2019-04-11 03:33 | XMS REPORT | CCD ---
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 [employer] Mounted Name Role Phone PP Unavailable CCM Unavailable Summary Purpose Interface Exchange Insurance Providers Payer name Policy type / Coverage type Covered constitution party ID Effective Begin Date Effective End Date WPS Medicare Part B Medicare Part B [id number] Unknown Unknown [facility] icare Part B [id number] Unknown Unk nown Family history Sister Diagnosis [...] Retir ed 08/07/[address]: 2928685 Quit over 10 years ago 1970 08/07/[address]: 756866804 Never drinks alcohol 08/07/2015 Allergies, Adverse Reactions, [...] Date Stop Date Sta tus Fill Instructions metformin 500 mg tablet RxNorm: 370668 TAKE ONE TABLET BY MOUTH TWICE DAILY 07/22/2016 10/19/2016 Ac tive furosemide 20 mg tablet RxNorm: 836141 1 Tablet(s) PO daily as needed for swell ing 07/21/2016 10/18/2016 Ac tive meloxicam 7.5 mg tablet RxNorm: 709710 TAKE ONE TABLET BY MOUTH ONCE DAILY 06/08/2016 12/04/2016 Ac tive cefdinir 300 mg capsule RxNorm: 647568 1 Capsule(s) PO BID 04/29/2016 05/05/2016 Inactive prednisone 20 mg tablet RxNorm: 455169 1 Tablet(s) PO BID 04/29/2016 05/03/2016 Inactive Zithromax Z-Sherif 250 mg tablet RxNorm: 793924 1 Tablet(s) PO UD 04/21/2016 04/28/2016 Inactive Kenalog 40 mg/mL maggie pension for injection RxNorm: 7158930 1 Milliliter(s) Inj 04/21/2016 04/21/2016 In active montelukast 10 mg ta blet RxNorm: 389447 TAKE ONE TABLET BY [facility] ONCE DAILY 03/22/2016 09/17/2016 Ac tive fluticasone 50 mcg/a ctuation nasal spray,suspension RxNorm: 5312568 2 [place] NASAL daily each nare 03/15/2016 07/12/2016 Inactive qs metformin 500 mg tablet RxNorm: 814771 1 Tablet(s) PO daily 01/16/2016 2016 Inactive Patient does not need a refill- just upd ate dosing simvastatin 40 mg ta blet RxNorm: 711000 1 Tablet(s) PO daily 01/01/2016 No Stop Date Active Advair Diskus 250 mc g-50 mcg/dose powder for inhalation RxNorm: 0823226 1 INH BID 01/01/2016 04/29/2016 In active Advair Diskus 250 mc g-50 mcg/dose powder for inhalation RxNorm: 6510777 1 INH daily 01/01/2016 12/31/2015 Inactive metformin 500 mg tablet RxNorm: 125801 1 Tablet(s) PO daily 01/01/2016 01/15/2016 Inactive azithromycin 250 mg tablet RxNorm: 593633 1 Tablet(s) PO take t wo pills on day #1, then one pill daily x 4 more days 01/01/2016 02/17/2016 Inactive meloxicam 7.5 mg tablet RxNorm: 683851 1 Tablet(s) PO daily 12/11/2015 06/07/2016 Inactive simvastatin 20 mg ta blet RxNorm: 850622 1 Tablet(s) PO daily 11/21/2015 12/31/2015 Inactive metformin 500 mg tablet RxNorm: 144656 1 Tablet(s) PO BID 11/21/2015 12/31/2015 Inactive Advair Diskus 250 mc g-50 mcg/dose powder for inhalation RxNorm: 0291612 1 INH BID 11/21/2015 12/31/2015 In active montelukast 10 mg ta blet RxNorm: 398722 1 Tablet(s) PO daily 09/25/2015 03/21/2016 Inactive losartan 50 mg tablet RxNorm: 803731 1 Tablet(s) PO daily 09/04/2015 08/28/2016 Active Restasis 0.05 % eye drops in a dropperette RxNorm: 015733 1 gtts OPH BID 08/07/2015 No Stop Date Active meloxicam 7.5 mg tablet RxNorm: 458238 1 Tablet(s) PO daily 08/07/2015 09/05/2015 Inactive Kay oral RxNorm: 973619 oral No Start Date Active finasteride 5 mg tablet RxNorm: 234821 1 Tablet(s) PO daily No Start Date Active Zyrtec 10 mg tablet RxNorm: 9598495 1 Tablet(s) PO daily No Start Date Active Co Q-10 200 mg capsule RxNorm: 629278 1 Capsule(s) PO daily No Start Date Active Calcium 500 + D (D3) oral RxNorm: 178560 oral No S tart Date Active simethicone 125 mg c apsule RxNorm: 551927 Capsule(s) PO as needed No Start Date Active Vitamin D3 1,000 uni t tablet RxNorm: 629075 1 Tablet(s) PO daily No Start Date Active omega-3 fatty acids 1,000 mg capsule RxNorm: 4 Capsule(s) PO daily No Start Date Active fluticasone 50 mcg/a ctuation nasal spray,suspension RxNorm: 0887586 2 [place] NASAL daily each nare No Start Date 03/14/2016 Inactive losartan 50 mg tablet RxNorm: 049193 1 Tablet(s) PO daily No Start Date 09/03/2015 Inactive metformin 500 mg tablet RxNorm: 304596 1 Tablet(s) PO daily No Start Date 11/20/2015 Inactive simvastatin 40 mg ta blet RxNorm: 055094 1 Tablet(s) PO daily No Start Date 11/20/2015 Inactive furosemide 20 mg tablet RxNorm: 136191 1 Tablet(s) PO daily as needed No Start Date 07/20/2016 Inactive Advair Diskus 250 mc g-50 mcg/dose powder for inhalation RxNorm: 1296813 1 INH daily No Start Date 11/20/2015 Inactive Multiple Vitamin oral RxNorm: 09602 oral No Start Date 12/31/2015 Inactive montelukast 10 mg ta blet RxNorm: 724315 1 Tablet(s) PO daily No Start Date 09/24/2015 Inactive Medication Administered Medication Codes Instruc tions Start Date Status Kenalog 40 mg/mL suspension for injection RxNorm: 6971991 1Milliliter 04/21/2016 N o longer Active Immunizations [...] Item Item Code Result Date Comp Metabolic Xht551 NA 143 mEq/L 06/17/2016 Comp Metabolic Yoy768 K 4.1 mEq/L 06/17/2016 Comp Metabolic Gui861 CL 108 mEq/L 06/17/2016 Comp Metabolic Cym156 CO2 28.0 mEq/L 06/17/2016 Comp Metabolic Vjn661 AN ION GAP 11 06/17/2016 Comp Metabolic Tfg021 GL UCOSE 106 mg/dL 06/17/2016 Comp Metabolic Lch667 Cr eat 0.9 mg/dL 06/17/2016 Comp Metabolic Irb545 eG FR 92 ml/min/1.73m2 06/17 Comp Metabolic Mky295 BUN 22 mg/dL 06/17/2016 Comp Metabolic Rst534 B/ C Ratio 25.9 Ratio 06/17/2016 Comp Metabolic Krl716 CA LCIUM 8.8 mg/dL 06/17/2016 Comp Metabolic Gar191 AL K PHOS 55 U/L 06/17/2016 Comp Metabolic Zrw152 T(SGOT) 21 U/L 06/17/2016 Comp Metabolic Xqm975 AL T(SGPT) 24 U/L 06/17/2016 Comp Metabolic Fvl248 BI LI T 0.6 mg/dL 06/17/2016 Comp Metabolic Hbp977 AL BUMIN 4.0 g/dL 06/17/2016 Comp Metabolic Cmt538 TP RO 6.2 g/dL 06/17/2016 Comp Metabolic Ypt281 GL OB 2.2 g/dL 06/17/2016 Comp Metabolic Kas493 A/ G Ratio 1.8 Ratio 06/17/2016 Comp Metabolic Jln940 Os mo 289 mOsmo 06/17/2016 Lipid Ord30 CHOL 163 mg/dL 06/17/2016 Lipid Ord30 HDL 54.0 mg/dl 06/17/2016 Lipid Ord30 TRIG 133 mg/dL 06/17/2016 Lipid Ord30 LDL 82 mg/dL 06/17/2016 Lipid Ord30 C/HDL 3.0 Ratio 06/17/2016 %Hba1C Wxu230 % HbA1c 14662-3 6.0 % 06/17/2016 %Hba1C Voh498 Gluc Ave 126 mg/dL 06/17/2016 Total Psa Ord10 PSA 0.00 ng/mL 06/17/2016 Cbc With Differential Ord2 WBC 5.78 K/ul 06/17/2016 Cbc With Differential Ord2 RBC 3.98 M/ul 06/17/2016 Cbc With Differential Ord2 HGB 13.0 g/dl 06/17/2016 Cbc With Differential Ord2 Neut% 56.2 % 06/17/2016 Cbc With Differential Ord2 HCT 38.0 % 06/17/2016 Cbc With Differential Ord2 MCV 95.5 fl 06/17/2016 Cbc With Differential Ord2 Lymph% 29.6 % 06/17/2016 Cbc With Differential Ord2 MCH 32.7 pg 06/17/2016 Cbc With Differential Ord2 [place]% 10.7 % 06/17/2016 Cbc With Differential Ord2 [...] 1.71 K/ul 06/17/2016 Cbc With Differential Ord2 [place] ABS# 0.6 K/ul 06/17/2016 Cbc With Differential Ord2 Eos ABS# 0.2 K/ul 06/17/2016 Cbc With Differential Ord2 Baso ABS# 0.0 K/ul 06/17/2016 Tsh Ord6 hTSH II 2.91 uIU/mL 06/17/2016 Tsh Ord6 hTSH II 2.45 uIU/mL 02/19/2016 %Hba1C Sgu283 % HbA1c 16934-9 5.8 % 02/19/2016 %Hba1C Kjc528 Gluc Ave 120 mg/dL 02/19/2016 Comp Metabolic Cvh444 NA 141 mEq/L 02/19/2016 Comp Metabolic Khj882 K 4.2 mEq/L 02/19/2016 Comp Metabolic Owl419 CL 107 mEq/L 02/19/2016 Comp Metabolic Esu317 CO2 29.0 mEq/L 02/19/2016 Comp Metabolic Dut446 AN ION GAP 9 02/19/2016 Comp Metabolic Qqp132 GL UCOSE 106 mg/dL 02/19/2016 Comp Metabolic Eul619 Cr eat 0.9 mg/dL 02/19/2016 Comp Metabolic Hmh384 eG FR 90 ml/min/1.73m2 02/18 Comp Metabolic Qth401 BUN 24 mg/dL 02/19/2016 Comp Metabolic Plf283 B/ C Ratio 27.6 Ratio 02/19/2016 Comp Metabolic Ffj291 CA LCIUM 9.1 mg/dL 02/19/2016 Comp Metabolic Owh493 AL K PHOS 67 U/L 02/19/2016 Comp Metabolic Qyg658 T(SGOT) 25 U/L 02/19/2016 Comp Metabolic Iha566 AL T(SGPT) 31 U/L 02/19/2016 Comp Metabolic Dfw129 BI LI T 0.6 mg/dL 02/19/2016 Comp Metabolic Lhg202 AL BUMIN 4.1 g/dL 02/19/2016 Comp Metabolic Xqw640 TP RO 6.5 g/dL 02/19/2016 Comp Metabolic Cbk571 GL OB 2.4 g/dL 02/19/2016 Comp Metabolic Kkc231 A/ G Ratio 1.7 Ratio 02/19/2016 Comp Metabolic Zsb513 Os mo 286 mOsmo 02/19/2016 Cbc With Differential Ord2 WBC 5.92 K/ul 02/19/2016 Cbc With Differential Ord2 RBC 4.13 M/ul 02/19/2016 Cbc With Differential Ord2 HGB 13.1 g/dl 02/19/2016 Cbc With Differential Ord2 HCT 39.3 % 02/19/2016 Cbc With Differential Ord2 Neut% 57.2 % 02/19/2016 Cbc With Differential Ord2 Lymph% 26.9 % 02/19/2016 Cbc With Differential Ord2 MCV 95.2 fl 02/19/2016 Cbc With Differential Ord2 MCH 31.7 pg 02/19/2016 Cbc With Differential Ord2 [place]% 10.5 % 02/19/2016 Cbc With Differential Ord2 [...] 1.59 K/ul 02/19/2016 Cbc With Differential Ord2 [place] ABS# 0.6 K/ul 02/19/2016 Cbc With Differential Ord2 Eos ABS# 0.3 K/ul 02/19/2016 Cbc With Differential Ord2 Baso ABS# 0.0 K/ul 02/19/2016 Lipid Ord30 CHOL 174 mg/dL 02/19/2016 Lipid Ord30 HDL 54.0 mg/dl 02/19/2016 Lipid Ord30 TRIG 110 mg/dL 02/19/2016 Lipid Ord30 LDL 98 mg/dL 02/19/2016 Lipid Ord30 C/HDL 3.2 Ratio 02/19/2016 %Hba1C Mgf295 % HbA1c 27720-2 6.0 % 11/11/2015 %Hba1C Rjq212 Gluc Ave 126 mg/dL 11/11/2015 %Hba1C Jme012 % HbA1c 34431-7 6.0 % 11/07/2015 %Hba1C Roy363 Gluc Ave 126 mg/dL 11/07/2015 Cbc With [...] 32.0 pg 11/06/2015 Cbc With Differential Ord2 [place]% 9.5 % 11/06/2015 Cbc With Differential Ord2 [...] 1.79 K/ul 11/06/2015 Cbc With Differential Ord2 [place] ABS# 0.6 K/ul 11/06/2015 Cbc With Differential Ord2 Eos ABS# 0.3 K/ul 11/06/2015 Cbc With Differential Ord2 Baso ABS# 0.0 K/ul 11/06/2015 Comp Metabolic Rai691 NA 141 mEq/L 11/06/2015 Comp Metabolic Bsk226 K 4.3 mEq/L 11/06/2015 Comp Metabolic Uhr184 CL 107 mEq/L 11/06/2015 Comp Metabolic Gyb335 CO2 28.0 mEq/L 11/06/2015 Comp Metabolic Lcl566 AN ION GAP 10 11/06/2015 Comp Metabolic Jxd710 GL UCOSE 117 mg/dL 11/06/2015 Comp Metabolic Dfh796 Cr eat 0.9 mg/dL 11/06/2015 Comp Metabolic Mwk471 eG FR 88 ml/min/1.73m2 11/05 Comp Metabolic Off957 BUN 22 mg/dL 11/06/2015 Comp Metabolic Mdg232 B/ C Ratio 25.0 Ratio 11/06/2015 Comp Metabolic Hce615 CA LCIUM 9.1 mg/dL 11/06/2015 Comp Metabolic Xys062 AL K PHOS 59 U/L 11/06/2015 Comp Metabolic Bpa394 T(SGOT) 23 U/L 11/06/2015 Comp Metabolic Xrx621 AL T(SGPT) 26 U/L 11/06/2015 Comp Metabolic Thh053 BI LI T 0.6 mg/dL 11/06/2015 Comp Metabolic Znh027 AL BUMIN 4.0 g/dL 11/06/2015 Comp Metabolic Uny762 TP RO 6.4 g/dL 11/06/2015 Comp Metabolic Ecd759 GL OB 2.4 g/dL 11/06/2015 Comp Metabolic Wea346 A/ G Ratio 1.7 Ratio 11/06/2015 Comp Metabolic Rbi888 Os mo 286 mOsmo 11/06/2015 Tsh Ord6 hTSH II 2.59 uIU/mL 11/06/2015 Lipid Ord30 CHOL 159 mg/dL 11/06/2015 Lipid Ord30 HDL 42.0 mg/dl 11/06/2015 Lipid Ord30 TRIG 129 mg/dL 11/06/2015 Lipid Ord30 LDL 91 mg/dL 11/06/2015 Lipid Ord30 C/HDL 3.8 Ratio 11/06/2015 Comp Metabolic Qga609 NA 140 mEq/L 08/08/2015 Comp Metabolic Tfy558 K 4.0 mEq/L 08/08/2015 Comp Metabolic Psh434 CL 108 mEq/L 08/08/2015 Comp Metabolic Ozc975 CO2 25.0 mEq/L 08/08/2015 Comp Metabolic Iou330 AN ION GAP 11 08/08/2015 Comp Metabolic Dvd878 GL UCOSE 100 mg/dL 08/08/2015 Comp Metabolic Fpe751 Cr eat 0.9 mg/dL 08/08/2015 Comp Metabolic Xhz671 eG FR 82 ml/min/1.73m2 08/07 Comp Metabolic Ujr738 BUN 19 mg/dL 08/08/2015 Comp Metabolic Gvu008 B/ C Ratio 20.2 Ratio 08/08/2015 Comp Metabolic Snu577 CA LCIUM 8.5 mg/dL 08/08/2015 Comp Metabolic Cbm172 AL K PHOS 56 U/L 08/08/2015 Comp Metabolic Yqf774 T(SGOT) 18 U/L 08/08/2015 Comp Metabolic Yph172 AL T(SGPT) 17 U/L 08/08/2015 Comp Metabolic Xol003 BI LI T 0.7 mg/dL 08/08/2015 Comp Metabolic Wrj617 AL BUMIN 3.9 g/dL 08/08/2015 Comp Metabolic Val060 TP RO 6.2 g/dL 08/08/2015 Comp Metabolic Loo066 GL OB 2.3 g/dL 08/08/2015 Comp Metabolic Tgz685 A/ G Ratio 1.7 Ratio 08/08/2015 Comp Metabolic Uxd688 Os mo 282 mOsmo 08/08/2015 Tsh Ord6 hTSH II 3.19 uIU/mL 08/08/2015 %Hba1C Yzr106 % HbA1c 54132-7 5.7 % 08/08/2015 %Hba1C Csj202 Gluc Ave 117 mg/dL 08/08/2015 Cbc With Differential Ord2 WBC 5.14 K/ul 08/08/2015 Cbc With Differential Ord2 RBC 4.27 M/ul 08/08/2015 Cbc With Differential Ord2 HGB 13.4 g/dl 08/08/2015 Cbc With Differential Ord2 Neut% 55.0 % 08/08/2015 Cbc With Differential Ord2 HCT 40.0 % 08/08/2015 Cbc With Differential Ord2 MCV 93.7 fl 08/08/2015 Cbc With Differential Ord2 Lymph% 29.4 % 08/08/2015 Cbc With Differential Ord2 MCH 31.4 pg 08/08/2015 Cbc With Differential Ord2 [place]% 10.9 % 08/08/2015 Cbc With Differential Ord2 [...] 1.51 K/ul 08/08/2015 Cbc With Differential Ord2 [place] ABS# 0.6 K/ul 08/08/2015 Cbc With Differential [...] Procedure Codes Date PPPS, SUBSEQ VISIT CPT-4: S9833Dgltrqh 05/21/2016 TRIAMCINOLONE ACET I [place] NOS CPT-4: F2227Frauzof 04/21/2016 THER/PROPH/DIAG INJ SC/IM CPT-4: 33326Kjifbjj 04/21/2016 DRAIN/INJECT JOINT/B URSA CPT-4: 60212Geaqjou 11/13/2015 PNEUMOCOCCAL VACC [address]: 89425964 CPT-4: 03868Unefxcb 11/13/2015 ADMIN PNEUMOCOCCAL V ACCINE SNOMED CT: 50062023 CPT-4: E1044Nmhlqbk 11/13/2015 ADMIN INFLUENZA VIRU S VAC CPT-4: I3804Lznwklo 11/11/2015 FLU VACC 4 AZUL 3 YRS PLUS IM SNOMED CT: 33938218 CPT-4: 91981Owzsbrq 11/11/2015 Vital Signs Date Vital 06/18/2016 Blood Pressure 1: 132/76 Code: 8480-6 BMI: 26.2 Code: 70932-5 Heart Rate 1: 65 bpm Height: 5'7" SpO2: 95% Weight: 167 lbs 8 oz 05/21/2016 Blood Pressure 1: 126/76 Code: 8480-6 BMI: 26.0 Code: 52016-4 Heart Rate 1: 72 bpm Height: 5'7" SpO2: 98% Weight: 166 lbs 04/29/2016 Blood Pressure 1: 128/70 Code: 8480-6 BMI: 25.7 Code: 28174-0 Heart Rate 1: 67 bpm Height: 5'7" SpO2: 97% Temperature: 36.3 (C ) / 97.4 (F) Weight: 164 lbs 04/21/2016 Blood Pressure 1: 130/62 Code: 8480-6 BMI: 26.3 Code: 13825-6 Heart Rate 1: 74 bpm Height: 5'7" SpO2: 96% Temperature: 37.0 (C ) / 98.6 (F) Weight: 168 lbs 02/20/2016 Blood Pressure 1: 120/64 Code: 8480-6 BMI: 26.2 Code: 96578-1 Heart Rate 1: 65 bpm Height: 5'7" SpO2: 94% Weight: 167 lbs 01/01/2016 Blood Pressure 1: 106/60 Code: 8480-6 BMI: 25.7 Code: 05035-1 Heart Rate 1: 73 bpm Height: 5'7" SpO2: 98% Weight: 164 lbs 11/13/2015 Blood Pressure 1: 122/86 Code: 8480-6 BMI: 25.8 Code: 48105-4 Heart Rate 1: 80 bpm Height: 5'7" SpO2: 92% Weight: 165 lbs 11/07/2015 Blood Pressure 1: 118/64 Code: 8480-6 BMI: 25.8 Code: 50377-8 Heart Rate 1: 66 bpm Height: 5'7" SpO2: 95% Weight: 165 lbs 08/07/2015 Blood Pressure 1: 122/80 Code: 8480-6 BMI: 24.4 Code: 44305-4 Heart Rate 1: 74 bpm Height: 5'7" [...] Encounters Encounter Performer Loca tion Codes Date ([id number]) 85894 EST. P ATIENT, LEVEL IV Diagnosis: Essential (primary) hypertension[ICD10: I10] Diagnosis: Type 2 diabetes mellitus without complications[ICD10: E11.9] Diagnosis: Mixed hyperlipidemia[ICD10: E78.2] Nancy Hoskins MD, [facility] CPT-4: 85261 06/18/2016 ([id number]) 78274 EST. P ATIENT, LEVEL III Diagnosis: Cough[ICD10: R05] Diagnosis: Acute bronchitis, unspecified[ICD10: J20.9] Nancy Hoskins MD, [facility] CPT-4: 11180 04/29/2016 64445 EST. PATIENT, LEVEL IV Diagnosis: Other acute sinusitis[ICD10: J01.80] Diagnosis: Other allergic rhinitis[ICD10: J30.89] Lakeisha Hoskins MD, [facility] CPT-4: 86708 04/21/2016 [id number]) [id number] EST. P ATIENT, LEVEL IV Diagnosis: Essential (primary) hypertension[ICD10: I10] Diagnosis: Type 2 diabetes mellitus without complications[ICD10: E11.9] Diagnosis: Mixed hyperlipidemia[ICD10: E78.2] Diagnosis: Primary generalized (osteo)arthritis[ICD10: M15.0] Nancy Hoskins MD, [facility] CPT-4: 93078 02/20/2016 ([id number]) 91454 EST. P ATIENT, LEVEL IV Diagnosis: Cough[ICD10: R05] Diagnosis: Acute bronchitis due to Hemophilus influenzae[ICD10: J20.1] Diagnosis: Type 2 diabetes mellitus without complications[ICD10: E11.9] Diagnosis: Essential (primary) hypertension[ICD10: I10] Charlene Hoskins MD, [facility] CPT-4: 32634 01/01/2016 ([id number]) 20941 EST. P ATIENT, LEVEL IV Diagnosis: Essential (primary) hypertension[ICD10: I10] Diagnosis: Mixed hyperlipidemia[ICD10: E78.2] Diagnosis: Type 2 diabetes mellitus without complications[ICD10: E11.9] [facility] CPT-4: 50277 11/07/2015 OFFICE VISIT, NEW - LEVEL 4 Diagnosis: Type 2 diabetes mellitus without complications[ICD10: E11.9] Diagnosis: Essential (primary) hypertension[ICD10: I10] Diagnosis: Mixed hyperlipidemia[ICD10: E78.2] Diagnosis: Elevated prostate specific antigen [PSA][ICD10: R97.2] [facility] CPT-4: 83054 08/07/2015 Plan of Care Planned Activity Notes [...] to medications. 06/18/2016 Appointment: Nancy Tavares WPtel: [address] [place], [place] [phone] (15 min) Moderate 06/18/2016 Patient Education: Patient [...] acutely worsen. 2016 Appointment: Nancy Tavares WPtel: [address] [place], [place] [phone] (15 min) Moderate 04/29/2016 Patient Education: Patient Medication Summary Completed 04/29/2016 Care Plan: CHEST X-RAY 2VW FRONTAL&LATL LOINC : 81478-6 Pending 04/29/2016 Visit Plan: Sinusitis - Pt [...] allergy spray. 04/21/2016 Appointment: Lakeisha Putnam WPtel: [address] [place], [place] [phone] (15 min) Moderate 04/21/2016 Patient Education: Patient [...] provided 02/20/2016 Appointment: Nancy Tavares WPtel: [phone] [phone] (30 min) Complex 02/20/2016 Patient Education: Patient [...] less controlled. 2015 Appointment[phone] (15 min) Moderate 01/01/2016 Patient Education: Patient [...] at the site of injection. 11/13/2015 Appointment: Chaitanya Nancy WPtel: [phone] [phone] (15 min) Moderate 11/13/2015 Patient Education: Patient [...] liver response to medications.DM-too early for Hgb K2b-alysfai to have done next week 2015 [facility]ment[phone] ([facility] min[facility] Moderate 11/07/2015 Patient Education: Patient [...] to medications.Elevated PSA-awaiting biopsy results 08/07/2015 Appointment: Nancy Tavares WPtel: [phone] [facility] Patient 08/07/2015 Patient Education: Patient Medication [...] Diabetes Mellitus - controlled - per r ecbrian FSBS reports. I have recommended for the [...] response to medications. DM-too early for Hgb S1c-rdmtuka to have done next week CXR STOP SYMBICORT TWO PUFFS BID . Bronchitis - acute case of bronchitis identified. Pt has been given antibiotics, breathing treatments as appropriate, and pt has been instructed to call if symptoms are not improved, or if symptoms acutely worsen.
--- OUTSIDE RECORDS SUMMARY | 2019-04-11 03:35 | XMS REPORT | CCD ---
Author Author Cesar Tavares Organization Charlene Hoskins MD, [facility] Address [address] [place] [address] Phone Care Team Providers Care Computer Analyst Name Role Phone PP Unavailable CCM Unavailable Summary Purpose Interface Exchange Insurance Providers Payer name Policy type / Coverage type Covered libertarian ID Effective Begin Date Effective End Date WPS Medicare Part B Medicare Part B [id number] Unknown [facility] Part B [id number] Un known Family history Brother Diagnosis Age [...] Retir ed 08/07/[address]: 4321793 Quit over 10 years ago 1970 08/07/[address]: 292336725 Never drinks alcohol 08/07/2015 Allergies, Adverse Reactions, [...] Date Stop Date Sta tus Fill Instructions meloxicam 7.5 mg tablet RxNorm: 436779 TAKE 1 TABLET BY MOUTH ONCE DAILY 06/01/2018 No Stop Date Active Advair Diskus 250 mc g-50 mcg/dose powder for inhalation RxNorm: 3966390 INHALE 1 DOSE BY MOUTH TWICE DAILY 05/22/2018 No Stop Date Active fluticasone propiona te 50 mcg/actuation nasal spray,suspension RxNorm: 8434187 USE 2 SPRAY(S) IN EACH NOSTRIL ONCE DAILY 05/17/2018 No Stop Date Active simvastatin 20 mg ta blet RxNorm: 233387 TAKE 1 TABLET BY MOUT H ONCE DAILY 05/16/2018 No Stop Date Active Kenalog 40 mg/mL maggie pension for injection RxNorm: 1252497 1 Milliliter(s) Inj 04/26/2018 04/26/2018 In active Kenalog 40 mg/mL maggie pension for injection RxNorm: 1885774 1 Milliliter(s) Inj 04/26/2018 04/26/2018 In active losartan 50 mg tablet RxNorm: 069756 TAKE 1 TABLET BY MOUTH ONCE DAILY 04/24/2018 No Stop Date Active fluticasone propiona te 50 mcg/actuation nasal spray,suspension RxNorm: 2815230 USE 2 SPRAY(S) IN EACH NOSTRIL ONCE DAILY 03/27/2018 05/16/2018 Inactive Advair Diskus 250 mc g-50 mcg/dose powder for inhalation RxNorm: 8764883 INHALE 1 DOSE BY MOUTH TWICE DAILY 03/21/2018 05/21/2018 Inactive montelukast 10 mg ta blet RxNorm: 514606 TAKE ONE TABLET BY MO UTH ONCE DAILY 03/15/2018 No Stop Date Active Advair Diskus 250 mc g-50 mcg/dose powder for inhalation RxNorm: 4335078 INHALE 1 DOSE BY MOUTH TWICE DAILY 02/20/2018 03/20/2018 Inactive fluticasone 50 mcg/a ctuation nasal spray,suspension RxNorm: 3306652 USE 2 SPRAY(S) IN EACH NOSTRIL ONCE DAILY 02/08/2018 03/26/2018 Inactive metformin 500 mg tablet RxNorm: 534295 TAKE 1 TABLET BY MOUTH ONCE DAILY 01/16/2018 No Stop Date Active Advair Diskus 250 mc g-50 mcg/dose powder for inhalation RxNorm: 4768196 INHALE 1 DOSE BY MOUTH TWICE DAILY 12/19/2017 02/19/2018 Inactive meloxicam 7.5 mg tablet RxNorm: 765200 TAKE 1 TABLET BY MOUTH ONCE DAILY 12/01/2017 05/31/2018 In active simvastatin 20 mg ta blet RxNorm: 753028 TAKE 1 TABLET BY MOUT H ONCE DAILY 11/14/2017 05/15/2018 In active losartan 50 mg tablet RxNorm: 019326 TAKE ONE TABLET BY MOUTH ONCE DAILY 10/27/2017 04/23/2018 In active Advair Diskus 250 mc g-50 mcg/dose powder for inhalation RxNorm: 1205986 INHALE 1 DOSE BY MOUTH TWICE DAILY 10/19/2017 12/18/2017 Inactive fluticasone 50 mcg/a ctuation nasal spray,suspension RxNorm: 6760735 USE TWO SPRAY(S) IN EACH NOSTRIL ONCE DAILY 10/19/2017 02/07/2018 Inactive Kenalog 40 mg/mL maggie pension for injection RxNorm: 3386071 1 Milliliter(s) Inj 08/25/2017 08/25/2017 In active meloxicam 7.5 mg tablet RxNorm: 250850 TAKE ONE TABLET BY MOUTH ONCE DAILY 06/06/2017 11/30/2017 In active simvastatin 20 mg ta blet RxNorm: 011156 TAKE ONE TABLET BY MO UTH ONCE DAILY 05/17/2017 11/13/2017 In active metformin 500 mg tablet RxNorm: 857859 TAKE ONE TABLET BY MOUTH ONCE DAILY 05/05/2017 01/15/2018 In active Advair Diskus 250 mc g-50 mcg/dose powder for inhalation RxNorm: 7613202 INHALE ONE DOSE BY MOUTH TWICE DAILY 04/19/2017 10/18/2017 Inactive Tamiflu 75 mg capsule RxNorm: 198704 1 Capsule(s) PO daily 03/25/2017 03/24/2017 Inactive Tamiflu 75 mg capsule RxNorm: 052062 1 Capsule(s) PO daily 03/25/2017 03/31/2017 Inactive montelukast 10 mg ta blet RxNorm: 935248 TAKE ONE TABLET BY MO UTH ONCE DAILY 03/21/2017 03/14/2018 In active losartan 50 mg tablet RxNorm: 635842 TAKE ONE TABLET BY MOUTH ONCE DAILY 01/27/2017 10/26/2017 In active fluticasone 50 mcg/a ctuation nasal spray,suspension RxNorm: 4140019 USE TWO SPRAY(S) IN EACH NOSTRIL ONCE DAILY 01/17/2017 10/18/2017 Inactive meloxicam 7.5 mg tablet RxNorm: 249299 TAKE ONE TABLET BY MOUTH ONCE DAILY 12/06/2016 06/03/2017 In active metformin 500 mg tablet RxNorm: 369572 Tablet(s) TAKE ONE TABLET BY MOUTH TWICE DAILY 11/30/2016 11/24/2017 Inactive simvastatin 20 mg ta blet RxNorm: 455879 TAKE ONE TABLET BY MO UT ONCE DAILY 11/15/2016 05/13/2017 In active Advair Diskus 250 mc g-50 mcg/dose powder for inhalation RxNorm: 2372678 INHALE ONE PUFF BY MOUTH TWICE DAILY 10/22/2016 04/18/2017 Inactive ketoconazole 2 % sha mpoo RxNorm: 752662 1 Application TOP TIW 10/04/2016 10/17/2016 Inactive fluticasone 50 mcg/a ctuation nasal spray,suspension RxNorm: 5551079 USE TWO SPRAY(S) IN EACH NOSTRIL ONCE DAILY 09/21/2016 11/19/2016 Inactive montelukast 10 mg ta blet RxNorm: 353267 TAKE ONE TABLET BY MO [facility] ONCE DAILY 09/21/2016 03/19/2017 In active losartan 50 mg tablet RxNorm: 977425 TAKE ONE TABLET BY MOUTH ONCE DAILY 08/02/2016 01/26/2017 In active metformin 500 mg tablet RxNorm: 294706 TAKE ONE TABLET BY MOUTH TWICE DAILY 07/22/2016 10/19/2016 In active furosemide 20 mg tablet RxNorm: 095166 1 Tablet(s) PO daily as needed for swell ing 07/21/2016 04/18/2018 Inactive meloxicam 7.5 mg tablet RxNorm: 514557 TAKE ONE TABLET BY MOUTH ONCE DAILY 06/08/2016 12/04/2016 In active cefdinir 300 mg capsule RxNorm: 881320 1 Capsule(s) PO BID 04/29/2016 05/05/2016 Inactive prednisone 20 mg tablet RxNorm: 807136 1 Tablet(s) PO BID 04/29/2016 05/03/2016 Inactive Zithromax Z-Sherif 250 mg tablet RxNorm: 743233 1 Tablet(s) PO UD 04/21/2016 04/28/2016 Inactive Kenalog 40 mg/mL maggie pension for injection RxNorm: 7619716 1 Milliliter(s) Inj 04/21/2016 04/21/2016 In active montelukast 10 mg ta blet RxNorm: 082699 TAKE ONE TABLET BY [facility] ONCE DAILY 03/22/2016 09/17/2016 In active fluticasone 50 mcg/a ctuation nasal spray,suspension RxNorm: 9014660 2 [place] NASAL daily each nare 03/15/2016 07/12/2016 Inactive qs metformin 500 mg tablet RxNorm: 518157 1 Tablet(s) PO daily 01/16/2016 2016 Inactive Patient does not need a refill- just upd ate dosing Advair Diskus 250 mc g-50 mcg/dose powder for inhalation RxNorm: 2498974 1 INH BID 01/01/2016 04/29/2016 In active Advair Diskus 250 mc g-50 mcg/dose powder for inhalation RxNorm: 0396115 1 INH daily 01/01/2016 12/31/2015 Inactive metformin 500 mg tablet RxNorm: 765261 1 Tablet(s) PO daily 01/01/2016 01/15/2016 Inactive simvastatin 40 mg ta blet RxNorm: 442797 1 Tablet(s) PO daily 01/01/2016 04/17/2018 Inactive azithromycin 250 mg tablet RxNorm: 386880 1 Tablet(s) PO take t wo pills on day #1, then one pill daily x 4 more days 01/01/2016 02/17/2016 Inactive meloxicam 7.5 mg tablet RxNorm: 045877 1 Tablet(s) PO daily 12/11/2015 06/07/2016 Inactive simvastatin 20 mg ta blet RxNorm: 461089 1 Tablet(s) PO daily 11/21/2015 12/31/2015 Inactive metformin 500 mg tablet RxNorm: 730467 1 Tablet(s) PO BID 11/21/2015 12/31/2015 Inactive Advair Diskus 250 mc g-50 mcg/dose powder for inhalation RxNorm: 6552294 1 INH BID 11/21/2015 12/31/2015 In active montelukast 10 mg ta blet RxNorm: 283585 1 Tablet(s) PO daily 09/25/2015 03/21/2016 Inactive losartan 50 mg tablet RxNorm: 925633 1 Tablet(s) PO daily 09/04/2015 08/01/2016 Inactive Restasis 0.05 % eye drops in a dropperette RxNorm: 408113 1 gtts OPH BID 08/07/2015 No Stop Date Active meloxicam 7.5 mg tablet RxNorm: 117929 1 Tablet(s) PO daily 08/07/2015 09/05/2015 Inactive Kay oral RxNorm: 480964 oral No Start Date Active finasteride 5 mg tablet RxNorm: 580053 1 Tablet(s) PO daily No Start Date Active Zyrtec 10 mg tablet RxNorm: 7610793 1 Tablet(s) PO daily No Start Date Active Co Q-10 200 mg capsule RxNorm: 316260 1 Capsule(s) PO daily No Start Date Active Calcium 500 + D (D3) oral RxNorm: 848161 oral No S tart Date Active simethicone 125 mg c apsule RxNorm: 520882 Capsule(s) PO as needed No Start Date Active Vitamin D3 1,000 uni t tablet RxNorm: 207093 1 Tablet(s) PO daily No Start Date Active omega-3 fatty acids 1,000 mg capsule RxNorm: 4 Capsule(s) PO daily No Start Date Active triamcinolone aceton chasity 0.1 % topical cream RxNorm: 9706404 1 TOP UD No Start Date Active fluticasone 50 mcg/a ctuation nasal spray,suspension RxNorm: 2190620 2 [place] NASAL daily each nare No Start Date 03/14/2016 Inactive losartan 50 mg tablet RxNorm: 918528 1 Tablet(s) PO daily No Start Date 09/03/2015 Inactive metformin 500 mg tablet RxNorm: 716417 1 Tablet(s) PO daily No Start Date 11/20/2015 Inactive simvastatin 40 mg ta blet RxNorm: 222616 1 Tablet(s) PO daily No Start Date 11/20/2015 Inactive furosemide 20 mg tablet RxNorm: 180647 1 Tablet(s) PO daily as needed No Start Date 07/20/2016 Inactive Advair Diskus 250 mc g-50 mcg/dose powder for inhalation RxNorm: 1609672 1 INH daily No Start Date 11/20/2015 Inactive Multiple Vitamin oral RxNorm: 45275 oral No Start Date 12/31/2015 Inactive montelukast 10 mg ta blet RxNorm: 904035 1 Tablet(s) PO daily No Start Date 09/24/2015 Inactive Medication Administered Medication Codes Instruc tions Start Date Status Kenalog 40 mg/mL suspension for injection RxNorm: 3951873 1Milliliter 04/26/2018 N o longer Active Kenalog 40 mg/mL suspension for injection RxNorm: 5974191 1Milliliter 04/26/2018 N o longer Active Kenalog 40 mg/mL suspension for injection RxNorm: 4568663 1Milliliter 08/25/2017 N o longer Active Kenalog 40 mg/mL suspension for injection RxNorm: 1459289 1Milliliter 04/21/2016 N o longer Active Immunizations Vaccine Codes Date Status Influenza CVX: 141 12/21 completed Influenza CVX: [...] Code Item Item Code Result Date %Hba1C Ksp758 % HbA1c 62022-5 6.0 % 12/21/2017 %Hba1C Mip475 Gluc Ave 126 mg/dL 12/21/2017 %Hba1C Fgn744 % HbA1c 37465-0 6.2 % 04/20/2017 %Hba1C Cyl480 Gluc Ave 131 mg/dL 04/20/2017 Cbc With [...] 31.8 pg 04/20/2017 Cbc With Differential Ord2 [place]% 9.3 % 04/20/2017 Cbc With Differential Ord2 [...] 1.82 K/ul 04/20/2017 Cbc With Differential Ord2 [place] ABS# 0.6 K/ul 04/20/2017 Cbc With Differential Ord2 Eos ABS# 0.2 K/ul 04/20/2017 Cbc With Differential Ord2 Baso ABS# 0.0 K/ul 04/20/2017 Comp Metabolic Phw171 NA 141 mEq/L 04/20/2017 Comp Metabolic Kkt315 K 4.5 mEq/L 04/20/2017 Comp Metabolic Hzp998 CL 106 mEq/L 04/20/2017 Comp Metabolic Abu791 CO2 27.0 mEq/L 04/20/2017 Comp Metabolic Hmn617 AN ION GAP 13 04/20/2017 Comp Metabolic Mpr574 GL UCOSE 109 mg/dL 04/20/2017 Comp Metabolic Zqv969 Cr eat 1.0 mg/dL 04/20/2017 Comp Metabolic Ofr490 eG FR 81 ml/min/1.73m2 04/20 Comp Metabolic Kwj197 BUN 23 mg/dL 04/20/2017 Comp Metabolic Gws583 B/ C Ratio 24.2 Ratio 04/20/2017 Comp Metabolic Phl126 CA LCIUM 9.3 mg/dL 04/20/2017 Comp Metabolic Bdn845 AL K PHOS 82 U/L 04/20/2017 Comp Metabolic Qxc029 T(SGOT) 22 U/L 04/20/2017 Comp Metabolic Yxj487 AL T(SGPT) 24 U/L 04/20/2017 Comp Metabolic Ibz402 BI LI T 0.4 mg/dL 04/20/2017 Comp Metabolic Luk648 AL BUMIN 4.3 g/dL 04/20/2017 Comp Metabolic Uxj857 TP RO 6.8 g/dL 04/20/2017 Comp Metabolic Fvx365 GL OB 2.5 g/dL 04/20/2017 Comp Metabolic Sos314 A/ G Ratio 1.7 Ratio 04/20/2017 Comp Metabolic Mcz909 Os mo 286 mOsmo 04/20/2017 %Hba1C Dcq266 % HbA1c 37822-0 5.8 % 10/22/2016 %Hba1C Vvq846 Gluc Ave 120 mg/dL 10/22/2016 Cbc With [...] 32.5 pg 10/22/2016 Cbc With Differential Ord2 [place]% 10.3 % 10/22/2016 Cbc With Differential Ord2 [...] 1.85 K/ul 10/22/2016 Cbc With Differential Ord2 [place] ABS# 0.8 K/ul 10/22/2016 Cbc With Differential Ord2 Eos ABS# 0.3 K/ul 10/22/2016 Cbc With Differential Ord2 Baso ABS# 0.0 K/ul 10/22/2016 Comp Metabolic Pce446 NA 141 mEq/L 10/22/2016 Comp Metabolic Ydy067 K 4.4 mEq/L 10/22/2016 Comp Metabolic Hts959 CL 105 mEq/L 10/22/2016 Comp Metabolic Saa597 CO2 27.0 mEq/L 10/22/2016 Comp Metabolic Kdy868 AN ION GAP 13 10/22/2016 Comp Metabolic Axv087 GL UCOSE 103 mg/dL 10/22/2016 Comp Metabolic Fjl650 Cr eat 1.0 mg/dL 10/22/2016 Comp Metabolic Qsd503 eG FR 76 ml/min/1.73m2 10/22 Comp Metabolic Bto609 BUN 27 mg/dL 10/22/2016 Comp Metabolic Cxz223 B/ C Ratio 27.0 Ratio 10/22/2016 Comp Metabolic Bxo704 CA LCIUM 9.3 mg/dL 10/22/2016 Comp Metabolic Nux037 AL K PHOS 72 U/L 10/22/2016 Comp Metabolic Hfi109 T(SGOT) 23 U/L 10/22/2016 Comp Metabolic Pyo381 AL T(SGPT) 26 U/L 10/22/2016 Comp Metabolic Ypu592 BI LI T 0.4 mg/dL 10/22/2016 Comp Metabolic Yik666 AL BUMIN 4.2 g/dL 10/22/2016 Comp Metabolic Vis713 TP RO 6.7 g/dL 10/22/2016 Comp Metabolic Rli954 GL OB 2.5 g/dL 10/22/2016 Comp Metabolic Vds481 A/ G Ratio 1.6 Ratio 10/22/2016 Comp Metabolic Bys082 Os mo 287 mOsmo 10/22/2016 Comp Metabolic Xhk807 NA 143 mEq/L 06/17/2016 Comp Metabolic Jyk711 K 4.1 mEq/L 06/17/2016 Comp Metabolic Zvj917 CL 108 mEq/L 06/17/2016 Comp Metabolic Yck736 CO2 28.0 mEq/L 06/17/2016 Comp Metabolic Gkc089 AN ION GAP 11 06/17/2016 Comp Metabolic Tkt104 GL UCOSE 106 mg/dL 06/17/2016 Comp Metabolic Qok421 Cr eat 0.9 mg/dL 06/17/2016 Comp Metabolic Goe495 eG FR 92 ml/min/1.73m2 06/17 Comp Metabolic Das189 BUN 22 mg/dL 06/17/2016 Comp Metabolic Kew810 B/ C Ratio 25.9 Ratio 06/17/2016 Comp Metabolic Cee035 CA LCIUM 8.8 mg/dL 06/17/2016 Comp Metabolic Vqk787 AL K PHOS 55 U/L 06/17/2016 Comp Metabolic Ixy273 T(SGOT) 21 U/L 06/17/2016 Comp Metabolic Wfb708 AL T(SGPT) 24 U/L 06/17/2016 Comp Metabolic Qep977 BI LI T 0.6 mg/dL 06/17/2016 Comp Metabolic Dgm656 AL BUMIN 4.0 g/dL 06/17/2016 Comp Metabolic Qdz606 TP RO 6.2 g/dL 06/17/2016 Comp Metabolic Gpr812 GL OB 2.2 g/dL 06/17/2016 Comp Metabolic Fkg361 A/ G Ratio 1.8 Ratio 06/17/2016 Comp Metabolic Fhw183 Os mo 289 mOsmo 06/17/2016 Lipid Ord30 CHOL 163 mg/dL 06/17/2016 Lipid Ord30 HDL 54.0 mg/dl 06/17/2016 Lipid Ord30 TRIG 133 mg/dL 06/17/2016 Lipid Ord30 LDL 82 mg/dL 06/17/2016 Lipid Ord30 C/HDL 3.0 Ratio 06/17/2016 %Hba1C Eek111 % HbA1c 71884-3 6.0 % 06/17/2016 %Hba1C Avp677 Gluc Ave 126 mg/dL 06/17/2016 Total Psa [...] 32.7 pg 06/17/2016 Cbc With Differential Ord2 [place]% 10.7 % 06/17/2016 Cbc With Differential Ord2 [...] 1.71 K/ul 06/17/2016 Cbc With Differential Ord2 [place] ABS# 0.6 K/ul 06/17/2016 Cbc With Differential Ord2 Eos ABS# 0.2 K/ul 06/17/2016 Cbc With Differential Ord2 Baso ABS# 0.0 K/ul 06/17/2016 Tsh Ord6 hTSH II 2.91 uIU/mL 06/17/2016 Tsh Ord6 hTSH II 2.45 uIU/mL 02/19/2016 %Hba1C Qmc673 % HbA1c 06215-4 5.8 % 02/19/2016 %Hba1C Wak908 Gluc Ave 120 mg/dL 02/19/2016 Comp Metabolic Caq003 NA 141 mEq/L 02/19/2016 Comp Metabolic Qbn456 K 4.2 mEq/L 02/19/2016 Comp Metabolic Hkf481 CL 107 mEq/L 02/19/2016 Comp Metabolic Qfi363 CO2 29.0 mEq/L 02/19/2016 Comp Metabolic Ktc639 AN ION GAP 9 02/19/2016 Comp Metabolic Niy373 GL UCOSE 106 mg/dL 02/19/2016 Comp Metabolic Sxf553 Cr eat 0.9 mg/dL 02/19/2016 Comp Metabolic Pxv027 eG FR 90 ml/min/1.73m2 02/18 Comp Metabolic Tip879 BUN 24 mg/dL 02/19/2016 Comp Metabolic Fpe458 B/ C Ratio 27.6 Ratio 02/19/2016 Comp Metabolic Xmv445 CA LCIUM 9.1 mg/dL 02/19/2016 Comp Metabolic Usd298 AL K PHOS 67 U/L 02/19/2016 Comp Metabolic Ecc470 T(SGOT) 25 U/L 02/19/2016 Comp Metabolic Juz743 AL T(SGPT) 31 U/L 02/19/2016 Comp Metabolic Mpc631 BI LI T 0.6 mg/dL 02/19/2016 Comp Metabolic Ycy984 AL BUMIN 4.1 g/dL 02/19/2016 Comp Metabolic Lbs022 TP RO 6.5 g/dL 02/19/2016 Comp Metabolic Lmh217 GL OB 2.4 g/dL 02/19/2016 Comp Metabolic Vlm182 A/ G Ratio 1.7 Ratio 02/19/2016 Comp Metabolic Vsy962 Os mo 286 mOsmo 02/19/2016 Cbc With [...] 31.7 pg 02/19/2016 Cbc With Differential Ord2 [place]% 10.5 % 02/19/2016 Cbc With Differential Ord2 [...] 1.59 K/ul 02/19/2016 Cbc With Differential Ord2 [place] ABS# 0.6 K/ul 02/19/2016 Cbc With Differential Ord2 Eos ABS# 0.3 K/ul 02/19/2016 Cbc With Differential Ord2 Baso ABS# 0.0 K/ul 02/19/2016 Lipid Ord30 CHOL 174 mg/dL 02/19/2016 Lipid Ord30 HDL 54.0 mg/dl 02/19/2016 Lipid Ord30 TRIG 110 mg/dL 02/19/2016 Lipid Ord30 LDL 98 mg/dL 02/19/2016 Lipid Ord30 C/HDL 3.2 Ratio 02/19/2016 %Hba1C Kmi161 % HbA1c 50876-7 6.0 % 11/11/2015 %Hba1C Zwi821 Gluc Ave 126 mg/dL 11/11/2015 %Hba1C Eue920 % HbA1c 94041-8 6.0 % 11/07/2015 %Hba1C Kgz998 Gluc Ave 126 mg/dL 11/07/2015 Cbc With [...] 32.0 pg 11/06/2015 Cbc With Differential Ord2 [place]% 9.5 % 11/06/2015 Cbc With Differential Ord2 [...] 1.79 K/ul 11/06/2015 Cbc With Differential Ord2 [place] ABS# 0.6 K/ul 11/06/2015 Cbc With Differential Ord2 Eos ABS# 0.3 K/ul 11/06/2015 Cbc With Differential Ord2 Baso ABS# 0.0 K/ul 11/06/2015 Comp Metabolic Ltv375 NA 141 mEq/L 11/06/2015 Comp Metabolic Asf656 K 4.3 mEq/L 11/06/2015 Comp Metabolic Jbk438 CL 107 mEq/L 11/06/2015 Comp Metabolic Puo031 CO2 28.0 mEq/L 11/06/2015 Comp Metabolic Kqf451 AN ION GAP 10 11/06/2015 Comp Metabolic Loz750 GL UCOSE 117 mg/dL 11/06/2015 Comp Metabolic Lhj189 Cr eat 0.9 mg/dL 11/06/2015 Comp Metabolic Zkm720 eG FR 88 ml/min/1.73m2 11/05 Comp Metabolic Gej060 BUN 22 mg/dL 11/06/2015 Comp Metabolic Jvb379 B/ C Ratio 25.0 Ratio 11/06/2015 Comp Metabolic Zvq076 CA LCIUM 9.1 mg/dL 11/06/2015 Comp Metabolic Pgq484 AL K PHOS 59 U/L 11/06/2015 Comp Metabolic Khr303 T(SGOT) 23 U/L 11/06/2015 Comp Metabolic Hcp494 AL T(SGPT) 26 U/L 11/06/2015 Comp Metabolic Otf313 BI LI T 0.6 mg/dL 11/06/2015 Comp Metabolic Ezd558 AL BUMIN 4.0 g/dL 11/06/2015 Comp Metabolic Kro953 TP RO 6.4 g/dL 11/06/2015 Comp Metabolic Pzc470 GL OB 2.4 g/dL 11/06/2015 Comp Metabolic Uma476 A/ G Ratio 1.7 Ratio 11/06/2015 Comp Metabolic Nqt782 Os mo 286 mOsmo 11/06/2015 Tsh Ord6 hTSH II 2.59 uIU/mL 11/06/2015 Lipid Ord30 CHOL 159 mg/dL 11/06/2015 Lipid Ord30 HDL 42.0 mg/dl 11/06/2015 Lipid Ord30 TRIG 129 mg/dL 11/06/2015 Lipid Ord30 LDL 91 mg/dL 11/06/2015 Lipid Ord30 C/HDL 3.8 Ratio 11/06/2015 Comp Metabolic Zrj468 NA 140 mEq/L 08/08/2015 Comp Metabolic Jni546 K 4.0 mEq/L 08/08/2015 Comp Metabolic Czm726 CL 108 mEq/L 08/08/2015 Comp Metabolic Yte586 CO2 25.0 mEq/L 08/08/2015 Comp Metabolic Eio303 AN ION GAP 11 08/08/2015 Comp Metabolic Emw317 GL UCOSE 100 mg/dL 08/08/2015 Comp Metabolic Djk191 Cr eat 0.9 mg/dL 08/08/2015 Comp Metabolic Ycn413 eG FR 82 ml/min/1.73m2 08/07 Comp Metabolic Oxh013 BUN 19 mg/dL 08/08/2015 Comp Metabolic Vbn416 B/ C Ratio 20.2 Ratio 08/08/2015 Comp Metabolic Hqm541 CA LCIUM 8.5 mg/dL 08/08/2015 Comp Metabolic And346 AL K PHOS 56 U/L 08/08/2015 Comp Metabolic Rvr586 T(SGOT) 18 U/L 08/08/2015 Comp Metabolic Mma643 AL T(SGPT) 17 U/L 08/08/2015 Comp Metabolic Jvh466 BI LI T 0.7 mg/dL 08/08/2015 Comp Metabolic Xyo969 AL BUMIN 3.9 g/dL 08/08/2015 Comp Metabolic Smw406 TP RO 6.2 g/dL 08/08/2015 Comp Metabolic Vrg399 GL OB 2.3 g/dL 08/08/2015 Comp Metabolic Lze261 A/ G Ratio 1.7 Ratio 08/08/2015 Comp Metabolic Ncj933 Os mo 282 mOsmo 08/08/2015 Tsh Ord6 hTSH II 3.19 uIU/mL 08/08/2015 %Hba1C Ghx251 % HbA1c 09760-1 5.7 % 08/08/2015 %Hba1C Mfl587 Gluc Ave 117 mg/dL 08/08/2015 Cbc With [...] 31.4 pg 08/08/2015 Cbc With Differential Ord2 [place]% 10.9 % 08/08/2015 Cbc With Differential Ord2 [...] 1.51 K/ul 08/08/2015 Cbc With Differential Ord2 [place] ABS# 0.6 K/ul 08/08/2015 Cbc With Differential [...] clear 04/20/2017 None Full Exam - General 1995 Ears/Nose/Throat otoscopic exam Overall: tympanic membranes clear [...] lips 05/21/2016 None Full Exam - General 1995 Ears/Nose/Throat oral cavity/pharynx/larynx Overall: oral mucosa clear [...] CPT-4: J3301 04/26/2018 DRAIN/INJECT JOINT/B URSA CPT-4: 89747 04/26/2018 DRAIN/INJECT JOINT/B URSA CPT-4: 69934 08/25/2017 PPPS, SUBSEQ VISIT CPT- 4: G0439 05/30/2017 ADMIN INFLUENZA VIRU S VAC CPT-4: G0008 12/21/2016 FLU VACC PRSV FREE I NC ANTIG CPT-4: 57192 12/21/2016 PPPS, SUBSEQ VISIT CPT- 4: G0439 05/21/2016 TRIAMCINOLONE ACET I [place] NOS CPT-4: J3301 04/21/2016 THER/PROPH/DIAG INJ SC/IM CPT-4: 22945 04/21/2016 DRAIN/INJECT JOINT/B URSA CPT-4: 31249 11/13/2015 PNEUMOCOCCAL VACC [address]: 80086215 CPT-4: 91255 11/13/2015 ADMIN PNEUMOCOCCAL V ACCINE SNOMED CT: 75258918 CPT-4: G0009 11/13/2015 ADMIN INFLUENZA VIRU S VAC CPT-4: G0008 11/11/2015 FLU VACC 4 AUZL 3 YRS PLUS IM SNOMED CT: 24636355 CPT-4: 91415 11/11/2015 Vital Signs Date Vital 05/22/2018 Blood Pressure 1: 130/72 Code: 8480-6 BMI: 25.5 Code: 11790-8 Heart Rate 1: 84 bpm Height: 5'7" SpO2: 96% Weight: 163 lbs 04/26/2018 Blood Pressure 1: 118/56 Code: 8480-6 BMI: 25.5 Code: 09296-2 Heart Rate 1: 60 bpm Height: 5'7" SpO2: 96% Weight: 163 lbs 12/21/2017 Blood Pressure 1: 132/56 Code: 8480-6 BMI: 25.7 Code: 93353-8 Heart Rate 1: 58 bpm Height: 5'7" SpO2: 93% Weight: 164 lbs 08/25/2017 Blood Pressure 1: 126/74 Code: 8480-6 BMI: 26.2 Code: 31961-8 Heart Rate 1: 70 bpm Height: 5'7" SpO2: 94% Weight: 167 lbs 05/30/2017 Blood Pressure 1: 120/66 Code: 8480-6 BMI: 26.6 Code: 68589-3 Heart Rate 1: 66 bpm Height: 5'7" SpO2: 95% Waist Measure (cm): 97 cm Weight: 170 lbs 04/20/2017 Blood Pressure 1: 138/78 Code: 8480-6 BMI: 26.6 Code: 53900-2 Heart Rate 1: 86 bpm Height: 5'7" SpO2: 96% Weight: 170 lbs 01/21/2017 Blood Pressure 1: 136/70 Code: 8480-6 BMI: 26.3 Code: 17130-7 Heart Rate 1: 79 bpm Height: 5'7" SpO2: 95% Weight: 168 lbs 10/22/2016 Blood Pressure 1: 134/72 Code: 8480-6 BMI: 26.3 Code: 11111-5 Heart Rate 1: 70 bpm Height: 5'7" SpO2: 95% Weight: 168 lbs 10/04/2016 Blood Pressure 1: 142/80 Code: 8480-6 BMI: 26.6 Code: 81202-4 Heart Rate 1: 72 bpm Height: 5'7" SpO2: 93% Weight: 170 lbs 06/18/2016 Blood Pressure 1: 132/76 Code: 8480-6 BMI: 26.2 Code: 71293-0 Heart Rate 1: 65 bpm Height: 5'7" SpO2: 95% Weight: 167 lbs 8 oz 05/21/2016 Blood Pressure 1: 126/76 Code: 8480-6 BMI: 26.0 Code: 31968-3 Heart Rate 1: 72 bpm Height: 5'7" SpO2: 98% Weight: 166 lbs 04/29/2016 Blood Pressure 1: 128/70 Code: 8480-6 BMI: 25.7 Code: 35604-8 Heart Rate 1: 67 bpm Height: 5'7" SpO2: 97% Temperature: 36.3 (C ) / 97.4 (F) Weight: 164 lbs 04/21/2016 Blood Pressure 1: 130/62 Code: 8480-6 BMI: 26.3 Code: 91627-7 Heart Rate 1: 74 bpm Height: 5'7" SpO2: 96% Temperature: 37.0 (C ) / 98.6 (F) Weight: 168 lbs 02/20/2016 Blood Pressure 1: 120/64 Code: 8480-6 BMI: 26.2 Code: 64639-5 Heart Rate 1: 65 bpm Height: 5'7" SpO2: 94% Weight: 167 lbs 01/01/2016 Blood Pressure 1: 106/60 Code: 8480-6 BMI: 25.7 Code: 33083-7 Heart Rate 1: 73 bpm Height: 5'7" SpO2: 98% Weight: 164 lbs 11/13/2015 Blood Pressure 1: 122/86 Code: 8480-6 BMI: 25.8 Code: 36799-7 Heart Rate 1: 80 bpm Height: 5'7" SpO2: 92% Weight: 165 lbs 11/07/2015 Blood Pressure 1: 118/64 Code: 8480-6 BMI: 25.8 Code: 97516-5 Heart Rate 1: 66 bpm Height: 5'7" SpO2: 95% Weight: 165 lbs 08/07/2015 Blood Pressure 1: 122/80 Code: 8480-6 BMI: 24.4 Code: 55468-6 Heart Rate 1: 74 bpm Height: 5'7" [...] Encounters Encounter Performer Loca tion Codes Date ([id number]) [id number] EST. P ATIENT, LEVEL III Diagnosis: Pain in left hip[ICD10: M25.552] Diagnosis: Pain in left shoulder[ICD10: M25.512] Nancy Hoskins MD, [facility] CPT-4: 77582 05/22/2018 [id number] EST. PATIENT, LEVEL III Diagnosis: Essential (primary) hypertension[ICD10: I10] Diagnosis: Pain in right knee[ICD10: M25.561] Diagnosis: Pain in left shoulder[ICD10: M25.512] Lakeisha Hoskins MD, [facility] CPT- 4: 69979 04/26/2018 [id number] EST. PATIENT, LEVEL IV Diagnosis: Type 2 diabetes mellitus without complications[ICD10: E11.9] Diagnosis: Essential (primary) hypertension[ICD10: I10] Diagnosis: Pain in right knee[ICD10: M25.561] Lakeisha Hoskins MD, [facility] CPT-4: 80744 12/21/2017 [id number] EST. PATIENT, LEVEL IV Diagnosis: Type 2 diabetes mellitus without complications[ICD10: E11.9] Diagnosis: Essential (primary) hypertension[ICD10: I10] Diagnosis: Pain in right knee[ICD10: M25.561] Lakiesha Hoskins MD, [facility] CPT-4: 14337 08/25/2017 [id number] EST. PATIENT, LEVEL IV Diagnosis: Type 2 diabetes mellitus without complications[ICD10: E11.9] Diagnosis: Essential (primary) hypertension[ICD10: I10] Lakeisha Hoskins MD, [facility] CPT-4: 36072 04/20/2017 ([id number]) [id number] EST. P ATIENT, LEVEL III Diagnosis: Essential (primary) hypertension[ICD10: I10] Diagnosis: Obstructive sleep apnea (adult) (pediatric)[ICD10: G47.33] Nancy Hoskins MD, [facility] CPT-4: 70871 01/21/2017 ([id number]) 19620 EST. P ATIENT, LEVEL IV Diagnosis: Essential (primary) hypertension[ICD10: I10] Diagnosis: Type 2 diabetes mellitus without complications[ICD10: E11.9] Diagnosis: Obstructive sleep apnea (adult) (pediatric)[ICD10: G47.33] Nancy Hoskins MD, [facility] CPT-4: 95738 10/22/2016 ([id number]) 89681 EST. P ATIENT, LEVEL III Diagnosis: Localized edema[ICD10: R60.0] Diagnosis: Rash and other nonspecific skin eruption[ICD10: R21] Nancy Hoskins MD, [facility] CPT-4: 93531 10/04/2016 ([id number]) 52088 EST. P ATIENT, LEVEL IV Diagnosis: Essential (primary) hypertension[ICD10: I10] Diagnosis: Type 2 diabetes mellitus without complications[ICD10: E11.9] Diagnosis: Mixed hyperlipidemia[ICD10: E78.2] Nancy Hoskins MD, [facility] CPT-4: 76094 06/18/2016 ([id number]) 48193 EST. P ATIENT, LEVEL III Diagnosis: Cough[ICD10: R05] Diagnosis: Acute bronchitis, unspecified[ICD10: J20.9] Nancy Hoskins MD, [facility] CPT-4: 37309 04/29/2016 43908 EST. PATIENT, LEVEL IV Diagnosis: Other acute sinusitis[ICD10: J01.80] Diagnosis: Other allergic rhinitis[ICD10: J30.89] Lakeisha Hoskins MD, [facility] CPT-4: 17072 04/21/2016 04411 07346 EST. P ATIENT, LEVEL IV Diagnosis: Essential (primary) hypertension[ICD10: I10] Diagnosis: Type 2 diabetes mellitus without complications[ICD10: E11.9] Diagnosis: Mixed hyperlipidemia[ICD10: E78.2] Diagnosis: Primary generalized (osteo)arthritis[ICD10: M15.0] Nancy Hoskins MD, [facility] CPT-4: 66874 02/20/2016 ([id number] 05085 EST. P ATIENT, LEVEL IV Diagnosis: Cough[ICD10: R05] Diagnosis: Acute bronchitis due to Hemophilus influenzae[ICD10: J20.1] Diagnosis: Type 2 diabetes mellitus without complications[ICD10: E11.9] Diagnosis: Essential (primary) hypertension[ICD10: I10] Charlene Hoskins MD, [facility] CPT-4: 54413 01/01/2016 12083 49319 EST. P ATIENT, LEVEL IV Diagnosis: Essential (primary) hypertension[ICD10: I10] Diagnosis: Mixed hyperlipidemia[ICD10: E78.2] Diagnosis: Type 2 diabetes mellitus without complications[ICD10: E11.9] Nancy Hoskins MD, [facility] CPT-4: 85478 11/07/2015 OFFICE VISIT, NEW - LEVEL 4 Diagnosis: Type 2 diabetes mellitus without complications[ICD10: E11.9] Diagnosis: Essential (primary) hypertension[ICD10: I10] Diagnosis: Mixed hyperlipidemia[ICD10: E78.2] Diagnosis: Elevated prostate specific antigen [PSA][ICD10: R97.2] Nancy Hoskins MD, [facility] CPT-4: 93577 08/07/2015 Plan of Care Planned Activity Notes C odes Status Date Visit Plan: Left shoulder pain -sta rted six weeks ago after a fall -will get xrays today and proceed as indicated -okay to take tylenol as needed for pain Left hip pain -also started after fall -xray hip today as well 05/22/2018 Appointment: Nancy Tavares WPtel: [address] [place], [place] [phone] (30 min) [facility] 05/22/2018 Patient Education: Patient Medication Summary Completed [...] injection. 04/26/2018 Appointment: [facility] [phone] [phone] (30 min) Complex 04/26/2018 Patient Education: Patient [...] improve. 12/21/2017 Appointment: Lakeisha Putnam [facility] [phone] [phone] (15 min) Moderate 12/21/2017 Patient Education: Patient [...] of injection. 08/25/2017 Appointment: Lakeisha Putnam WPtel: [facility] (15 min) Moderate 08/25/2017 Patient [...] Summary Completed 05/30/2017 Appointment: Lakeisha Putnam WPtel: [facility] [facility] - Annual Wellness Visit 05/27/2017 Appointment: Nancy Tavares WPtel: [address] [place], [place] [phone] (30 min) Complex 04/22/2017 Visit Plan: Hypertension [...] controlled. 04/20/2017 Appointment: Lakeisha Put[facility] [phone] [phone] (30 min) Complex 04/20/2017 Patient Education: Patient [...] improved sleep, etc. Will fax note to [facility]. 01/21/2017 Appointment: [facility] [phone] [phone] (30 min) Complex 01/21/2017 Appointment: [facility] [phone] [phone] (30 min) Complex 01/21/2017 Patient Education: Patient [...] doing well-due for a new machine-will call [facility] to see what we need to do to get him a new machine. 10/22/2016 Appointment: Nancy Tavares WPtel: [phone] [phone] (30 min) Complex 10/22/2016 Patient [...] plan. 10/04/2016 Appointment: Nancy Tavares WPtel: [phone] [phone] (15 min) Moderate 10/04/2016 Patient Education: Patient [...] dications. 06/18/2016 Appointment: [facility] [phone] [phone] (15 min) Moderate 06/18/2016 Patient Education: Patient [...] acutely worsen. 04/29/2016 Appointment: [facility] [phone] [phone] (15 min) Moderate 04/29/2016 Patient Education: Patient Medication Summary Completed 04/29/2016 Care Plan: CHEST X-RAY 2VW FRONTAL&LATL LOINC : 44018-2 Pending 04/29/2016 Visit Plan: Sinusitis - Pt [...] allergy spray. 04/21/2016 Appointment: Lakeisha Putnam [facility]el[facility] [phone] [phone] (15 min) Moderate 04/21/2016 Patient Education: Patient [...] provided 02/20/2016 Appointment: Nancy Tavares [facility]el: [phone] [phone] (30 min) Complex 02/20/2016 Patient Education: Patient [...] less controlled. 01/01/2016 [facility]ment[phone] [place] (15 min) Moderate 01/01/2016 Patient Education: [...] of injection. 11/13/2015 Appointment: [facility] [phone] [phone] (15 min) Moderate 11/13/2015 Patient Education: [...] response to medications. DM-too early for Hgb [id number] to have done next week 11/07/2015 Appointment: [facility] [phone] [phone] [place] (15 min) Moderate 11/07/2015 Patient Education: Patient [...] biopsy results 08/07/2015 Appointment: Nancy Tavares WPtel: [phone] New Patient 08/07/2015 Patient Education: Patient Medication [...] pain is worsening or does not improve. CXR STOP SYMBICORT TWO PUFFS BID . [...] response to medications. DM-too early for Hgb [id number] to have done next week . Hypertension [...] improved sleep, etc. Will fax note to [facility]. . Hypertension - con tinue with current [...] TIMES WEEKLY CONTINUE STEROID CREAM ORDERED BY [employer]TER[employer] CULTURE RASH LEFT AXILLA . Edema - [...] doing well-due for a new machine-will call [facility] to see what we need to do to get him a new machine.
--- OUTSIDE RECORDS SUMMARY | 2019-04-11 03:36 | XMS REPORT | CCD ---
Author Author Cesar Tavares Organization Charlene Hoskins MD, [facility] Address [address] [place] [address] Phone Care Team Providers Care Service Consultant Name Role Phone PP Unavailable CCM Unavailable Summary Purpose Interface Exchange Insurance Providers Payer name Policy type / Coverage type Covered libertarian ID Effective Begin Date Effective End Date WPS Medicare Part B Medicare Part B [id number] Unknown [facility] Part B [id number] Un known Family history Brother Diagnosis Age [...] Retir ed 08/07/[address]: 0232191 Quit over 10 years ago 1970 08/07/[address]: 043257904 Never drinks alcohol 08/07/2015 Allergies, Adverse Reactions, [...] Date Stop Date Sta tus Fill Instructions Advair Diskus 250 mc g-50 mcg/dose powder for inhalation RxNorm: 6038017 INHALE 1 DOSE BY MOUTH TWICE DAILY 05/22/2018 No Stop Date Active fluticasone propiona te 50 mcg/actuation nasal spray,suspension RxNorm: 2310146 USE 2 SPRAY(S) IN EACH NOSTRIL ONCE DAILY 05/17/2018 No Stop Date Active simvastatin 20 mg ta blet RxNorm: 541756 TAKE 1 TABLET BY MOUT H ONCE DAILY 05/16/2018 No Stop Date Active Kenalog 40 mg/mL maggie pension for injection RxNorm: 7457904 1 Milliliter(s) Inj 04/26/2018 04/26/2018 In active Kenalog 40 mg/mL maggie pension for injection RxNorm: 0224986 1 Milliliter(s) Inj 04/26/2018 04/26/2018 In active losartan 50 mg tablet RxNorm: 995825 TAKE 1 TABLET BY MOUTH ONCE DAILY 04/24/2018 No Stop Date Active fluticasone propiona te 50 mcg/actuation nasal spray,suspension RxNorm: 0541568 USE 2 SPRAY(S) IN EACH NOSTRIL ONCE DAILY 03/27/2018 05/16/2018 Inactive Advair Diskus 250 mc g-50 mcg/dose powder for inhalation RxNorm: 6692331 INHALE 1 DOSE BY MOUTH TWICE DAILY 03/21/2018 05/21/2018 Inactive montelukast 10 mg ta blet RxNorm: 791919 TAKE ONE TABLET BY MO UT ONCE DAILY 03/15/2018 No Stop Date Active Advair Diskus 250 mc g-50 mcg/dose powder for inhalation RxNorm: 0439943 INHALE 1 DOSE BY MOUTH TWICE DAILY 02/20/2018 03/20/2018 Inactive fluticasone 50 mcg/a ctuation nasal spray,suspension RxNorm: 4436070 USE 2 SPRAY(S) IN EACH NOSTRIL ONCE DAILY 02/08/2018 03/26/2018 Inactive metformin 500 mg tablet RxNorm: 912795 TAKE 1 TABLET BY MOUTH ONCE DAILY 01/16/2018 No Stop Date Active Advair Diskus 250 mc g-50 mcg/dose powder for inhalation RxNorm: 7442137 INHALE 1 DOSE BY MOUTH TWICE DAILY 12/19/2017 02/19/2018 Inactive meloxicam 7.5 mg tablet RxNorm: 382364 TAKE 1 TABLET BY MOUTH ONCE DAILY 12/01/2017 No Stop Date Active simvastatin 20 mg ta blet RxNorm: 615622 TAKE 1 TABLET BY MOUT H ONCE DAILY 11/14/2017 05/15/2018 In active losartan 50 mg tablet RxNorm: 067148 TAKE ONE TABLET BY MOUTH ONCE DAILY 10/27/2017 04/23/2018 In active Advair Diskus 250 mc g-50 mcg/dose powder for inhalation RxNorm: 4051510 INHALE 1 DOSE BY MOUTH TWICE DAILY 10/19/2017 12/18/2017 Inactive fluticasone 50 mcg/a ctuation nasal spray,suspension RxNorm: 8480052 USE TWO SPRAY(S) IN EACH NOSTRIL ONCE DAILY 10/19/2017 02/07/2018 Inactive Kenalog 40 mg/mL maggie pension for injection RxNorm: 6099571 1 Milliliter(s) Inj 08/25/2017 08/25/2017 In active meloxicam 7.5 mg tablet RxNorm: 473444 TAKE ONE TABLET BY MOUTH ONCE DAILY 06/06/2017 11/30/2017 In active simvastatin 20 mg ta blet RxNorm: 835883 TAKE ONE TABLET BY MO UTH ONCE DAILY 05/17/2017 11/13/2017 In active metformin 500 mg tablet RxNorm: 899733 TAKE ONE TABLET BY MOUTH ONCE DAILY 05/05/2017 01/15/2018 In active Advair Diskus 250 mc g-50 mcg/dose powder for inhalation RxNorm: 4191558 INHALE ONE DOSE BY MOUTH TWICE DAILY 04/19/2017 10/18/2017 Inactive Tamiflu 75 mg capsule RxNorm: 474012 1 Capsule(s) PO daily 03/25/2017 03/24/2017 Inactive Tamiflu 75 mg capsule RxNorm: 362451 1 Capsule(s) PO daily 03/25/2017 03/31/2017 Inactive montelukast 10 mg ta blet RxNorm: 231764 TAKE ONE TABLET BY MO UTH ONCE DAILY 03/21/2017 03/14/2018 In active losartan 50 mg tablet RxNorm: 588581 TAKE ONE TABLET BY MOUTH ONCE DAILY 01/27/2017 10/26/2017 In active fluticasone 50 mcg/a ctuation nasal spray,suspension RxNorm: 1135802 USE TWO SPRAY(S) IN EACH NOSTRIL ONCE DAILY 01/17/2017 10/18/2017 Inactive meloxicam 7.5 mg tablet RxNorm: 048291 TAKE ONE TABLET BY MOUTH ONCE DAILY 12/06/2016 06/03/2017 In active metformin 500 mg tablet RxNorm: 052715 Tablet(s) TAKE ONE TABLET BY MOUTH TWICE DAILY 11/30/2016 11/24/2017 Inactive simvastatin 20 mg ta blet RxNorm: 155982 TAKE ONE TABLET BY MO UT ONCE DAILY 11/15/2016 05/13/2017 In active Advair Diskus 250 mc g-50 mcg/dose powder for inhalation RxNorm: 2646187 INHALE ONE PUFF BY MOUTH TWICE DAILY 10/22/2016 04/18/2017 Inactive ketoconazole 2 % sha mpoo RxNorm: 834677 1 Application TOP TIW 10/04/2016 10/17/2016 Inactive fluticasone 50 mcg/a ctuation nasal spray,suspension RxNorm: 4977028 USE TWO SPRAY(S) IN EACH NOSTRIL ONCE DAILY 09/21/2016 11/19/2016 Inactive montelukast 10 mg ta blet RxNorm: 454291 TAKE ONE TABLET BY MO [facility] ONCE DAILY 09/21/2016 03/19/2017 In active losartan 50 mg tablet RxNorm: 848329 TAKE ONE TABLET BY MOUTH ONCE DAILY 08/02/2016 01/26/2017 In active metformin 500 mg tablet RxNorm: 842068 TAKE ONE TABLET BY MOUTH TWICE DAILY 07/22/2016 10/19/2016 In active furosemide 20 mg tablet RxNorm: 942286 1 Tablet(s) PO daily as needed for swell ing 07/21/2016 04/18/2018 Inactive meloxicam 7.5 mg tablet RxNorm: 256063 TAKE ONE TABLET BY MOUTH ONCE DAILY 06/08/2016 12/04/2016 In active cefdinir 300 mg capsule RxNorm: 466275 1 Capsule(s) PO BID 04/29/2016 05/05/2016 Inactive prednisone 20 mg tablet RxNorm: 413004 1 Tablet(s) PO BID 04/29/2016 05/03/2016 Inactive Zithromax Z-Sherif 250 mg tablet RxNorm: 431459 1 Tablet(s) PO UD 04/21/2016 04/28/2016 Inactive Kenalog 40 mg/mL maggie pension for injection RxNorm: 0564554 1 Milliliter(s) Inj 04/21/2016 04/21/2016 In active montelukast 10 mg ta blet RxNorm: 904811 TAKE ONE TABLET BY [facility] ONCE DAILY 03/22/2016 09/17/2016 In active fluticasone 50 mcg/a ctuation nasal spray,suspension RxNorm: 9919156 2 [place] NASAL daily each nare 03/15/2016 07/12/2016 Inactive qs metformin 500 mg tablet RxNorm: 347188 1 Tablet(s) PO daily 01/16/2016 2016 Inactive Patient does not need a refill- just upd ate dosing Advair Diskus 250 mc g-50 mcg/dose powder for inhalation RxNorm: 1943516 1 INH BID 01/01/2016 04/29/2016 In active Advair Diskus 250 mc g-50 mcg/dose powder for inhalation RxNorm: 7313286 1 INH daily 01/01/2016 12/31/2015 Inactive metformin 500 mg tablet RxNorm: 486387 1 Tablet(s) PO daily 01/01/2016 01/15/2016 Inactive simvastatin 40 mg ta blet RxNorm: 381606 1 Tablet(s) PO daily 01/01/2016 04/17/2018 Inactive azithromycin 250 mg tablet RxNorm: 139296 1 Tablet(s) PO take t wo pills on day #1, then one pill daily x 4 more days 01/01/2016 02/17/2016 Inactive meloxicam 7.5 mg tablet RxNorm: 630169 1 Tablet(s) PO daily 12/11/2015 06/07/2016 Inactive simvastatin 20 mg ta blet RxNorm: 104600 1 Tablet(s) PO daily 11/21/2015 12/31/2015 Inactive metformin 500 mg tablet RxNorm: 675645 1 Tablet(s) PO BID 11/21/2015 12/31/2015 Inactive Advair Diskus 250 mc g-50 mcg/dose powder for inhalation RxNorm: 4067969 1 INH BID 11/21/2015 12/31/2015 In active montelukast 10 mg ta blet RxNorm: 209273 1 Tablet(s) PO daily 09/25/2015 03/21/2016 Inactive losartan 50 mg tablet RxNorm: 661901 1 Tablet(s) PO daily 09/04/2015 08/01/2016 Inactive Restasis 0.05 % eye drops in a dropperette RxNorm: 263927 1 gtts OPH BID 08/07/2015 No Stop Date Active meloxicam 7.5 mg tablet RxNorm: 830541 1 Tablet(s) PO daily 08/07/2015 09/05/2015 Inactive Kay oral RxNorm: 311564 oral No Start Date Active finasteride 5 mg tablet RxNorm: 884297 1 Tablet(s) PO daily No Start Date Active Zyrtec 10 mg tablet RxNorm: 4861100 1 Tablet(s) PO daily No Start Date Active Co Q-10 200 mg capsule RxNorm: 738671 1 Capsule(s) PO daily No Start Date Active Calcium 500 + D (D3) oral RxNorm: 431435 oral No S tart Date Active simethicone 125 mg c apsule RxNorm: 951921 Capsule(s) PO as needed No Start Date Active Vitamin D3 1,000 uni t tablet RxNorm: 411187 1 Tablet(s) PO daily No Start Date Active omega-3 fatty acids 1,000 mg capsule RxNorm: 4 Capsule(s) PO daily No Start Date Active triamcinolone aceton chasity 0.1 % topical cream RxNorm: 1497120 1 TOP UD No Start Date Active fluticasone 50 mcg/a ctuation nasal spray,suspension RxNorm: 7834109 2 [place] NASAL daily each nare No Start Date 03/14/2016 Inactive losartan 50 mg tablet RxNorm: 347760 1 Tablet(s) PO daily No Start Date 09/03/2015 Inactive metformin 500 mg tablet RxNorm: 438393 1 Tablet(s) PO daily No Start Date 11/20/2015 Inactive simvastatin 40 mg ta blet RxNorm: 419750 1 Tablet(s) PO daily No Start Date 11/20/2015 Inactive furosemide 20 mg tablet RxNorm: 103342 1 Tablet(s) PO daily as needed No Start Date 07/20/2016 Inactive Advair Diskus 250 mc g-50 mcg/dose powder for inhalation RxNorm: 5329737 1 INH daily No Start Date 11/20/2015 Inactive Multiple Vitamin oral RxNorm: 86798 oral No Start Date 12/31/2015 Inactive montelukast 10 mg ta blet RxNorm: 678698 1 Tablet(s) PO daily No Start Date 09/24/2015 Inactive Medication Administered Medication Codes Instruc tions Start Date Status Kenalog 40 mg/mL suspension for injection RxNorm: 3757830 1Milliliter 04/26/2018 N o longer Active Kenalog 40 mg/mL suspension for injection RxNorm: 5551544 1Milliliter 04/26/2018 N o longer Active Kenalog 40 mg/mL suspension for injection RxNorm: 9650674 1Milliliter 08/25/2017 N o longer Active Kenalog 40 mg/mL suspension for injection RxNorm: 8817169 1Milliliter 04/21/2016 N o longer Active Immunizations [...] Code Item Item Code Result Date %Hba1C Xoh136 % HbA1c 84113-3 6.0 % 12/21/2017 %Hba1C Xyc230 Gluc Ave 126 mg/dL 12/21/2017 %Hba1C Gio508 % HbA1c 93972-4 6.2 % 04/20/2017 %Hba1C Cyd482 Gluc Ave 131 mg/dL 04/20/2017 Cbc With [...] 31.8 pg 04/20/2017 Cbc With Differential Ord2 [place]% 9.3 % 04/20/2017 Cbc With Differential Ord2 [...] 1.82 K/ul 04/20/2017 Cbc With Differential Ord2 [place] ABS# 0.6 K/ul 04/20/2017 Cbc With Differential Ord2 Eos ABS# 0.2 K/ul 04/20/2017 Cbc With Differential Ord2 Baso ABS# 0.0 K/ul 04/20/2017 Comp Metabolic Zri542 NA 141 mEq/L 04/20/2017 Comp Metabolic Eym508 K 4.5 mEq/L 04/20/2017 Comp Metabolic Uvz089 CL 106 mEq/L 04/20/2017 Comp Metabolic Tut890 CO2 27.0 mEq/L 04/20/2017 Comp Metabolic Hzk976 AN ION GAP 13 04/20/2017 Comp Metabolic Yap630 GL UCOSE 109 mg/dL 04/20/2017 Comp Metabolic Scv334 Cr eat 1.0 mg/dL 04/20/2017 Comp Metabolic Knk175 eG FR 81 ml/min/1.73m2 04/20 Comp Metabolic Gfp521 BUN 23 mg/dL 04/20/2017 Comp Metabolic Pnj511 B/ C Ratio 24.2 Ratio 04/20/2017 Comp Metabolic Zkj917 CA LCIUM 9.3 mg/dL 04/20/2017 Comp Metabolic Gam104 AL K PHOS 82 U/L 04/20/2017 Comp Metabolic Epn474 T(SGOT) 22 U/L 04/20/2017 Comp Metabolic Isv732 AL T(SGPT) 24 U/L 04/20/2017 Comp Metabolic Aca352 BI LI T 0.4 mg/dL 04/20/2017 Comp Metabolic Nfx437 AL BUMIN 4.3 g/dL 04/20/2017 Comp Metabolic Owj003 TP RO 6.8 g/dL 04/20/2017 Comp Metabolic Uzg451 GL OB 2.5 g/dL 04/20/2017 Comp Metabolic Nis618 A/ G Ratio 1.7 Ratio 04/20/2017 Comp Metabolic Zfx447 Os mo 286 mOsmo 04/20/2017 %Hba1C Isg149 % HbA1c 24477-2 5.8 % 10/22/2016 %Hba1C Brh085 Gluc Ave 120 mg/dL 10/22/2016 Cbc With [...] 32.5 pg 10/22/2016 Cbc With Differential Ord2 [place]% 10.3 % 10/22/2016 Cbc With Differential Ord2 [...] 1.85 K/ul 10/22/2016 Cbc With Differential Ord2 [place] ABS# 0.8 K/ul 10/22/2016 Cbc With Differential Ord2 Eos ABS# 0.3 K/ul 10/22/2016 Cbc With Differential Ord2 Baso ABS# 0.0 K/ul 10/22/2016 Comp Metabolic Xdm795 NA 141 mEq/L 10/22/2016 Comp Metabolic Wxp601 K 4.4 mEq/L 10/22/2016 Comp Metabolic Rgg246 CL 105 mEq/L 10/22/2016 Comp Metabolic Nqb706 CO2 27.0 mEq/L 10/22/2016 Comp Metabolic Rbb141 AN ION GAP 13 10/22/2016 Comp Metabolic Bel183 GL UCOSE 103 mg/dL 10/22/2016 Comp Metabolic Pan774 Cr eat 1.0 mg/dL 10/22/2016 Comp Metabolic Qhq816 eG FR 76 ml/min/1.73m2 10/22 Comp Metabolic Gyi348 BUN 27 mg/dL 10/22/2016 Comp Metabolic Qit853 B/ C Ratio 27.0 Ratio 10/22/2016 Comp Metabolic Msn371 CA LCIUM 9.3 mg/dL 10/22/2016 Comp Metabolic Ikp940 AL K PHOS 72 U/L 10/22/2016 Comp Metabolic Tyx542 T(SGOT) 23 U/L 10/22/2016 Comp Metabolic Who042 AL T(SGPT) 26 U/L 10/22/2016 Comp Metabolic Kgd734 BI LI T 0.4 mg/dL 10/22/2016 Comp Metabolic Xxd297 AL BUMIN 4.2 g/dL 10/22/2016 Comp Metabolic Rlf746 TP RO 6.7 g/dL 10/22/2016 Comp Metabolic Yyu248 GL OB 2.5 g/dL 10/22/2016 Comp Metabolic Nmx580 A/ G Ratio 1.6 Ratio 10/22/2016 Comp Metabolic Usl634 Os mo 287 mOsmo 10/22/2016 Comp Metabolic Qad845 NA 143 mEq/L 06/17/2016 Comp Metabolic Bwi557 K 4.1 mEq/L 06/17/2016 Comp Metabolic Tlh210 CL 108 mEq/L 06/17/2016 Comp Metabolic Gxh517 CO2 28.0 mEq/L 06/17/2016 Comp Metabolic Aox600 AN ION GAP 11 06/17/2016 Comp Metabolic Jjz890 GL UCOSE 106 mg/dL 06/17/2016 Comp Metabolic Woc449 Cr eat 0.9 mg/dL 06/17/2016 Comp Metabolic Woq160 eG FR 92 ml/min/1.73m2 06/17 Comp Metabolic Dls914 BUN 22 mg/dL 06/17/2016 Comp Metabolic Dyv060 B/ C Ratio 25.9 Ratio 06/17/2016 Comp Metabolic Pps234 CA LCIUM 8.8 mg/dL 06/17/2016 Comp Metabolic Bsj914 AL K PHOS 55 U/L 06/17/2016 Comp Metabolic Dqi874 T(SGOT) 21 U/L 06/17/2016 Comp Metabolic Xlk414 AL T(SGPT) 24 U/L 06/17/2016 Comp Metabolic Ycj587 BI LI T 0.6 mg/dL 06/17/2016 Comp Metabolic Jjt568 AL BUMIN 4.0 g/dL 06/17/2016 Comp Metabolic Ahd173 TP RO 6.2 g/dL 06/17/2016 Comp Metabolic Byk539 GL OB 2.2 g/dL 06/17/2016 Comp Metabolic Nyk733 A/ G Ratio 1.8 Ratio 06/17/2016 Comp Metabolic Xwd545 Os mo 289 mOsmo 06/17/2016 Lipid Ord30 CHOL 163 mg/dL 06/17/2016 Lipid Ord30 HDL 54.0 mg/dl 06/17/2016 Lipid Ord30 TRIG 133 mg/dL 06/17/2016 Lipid Ord30 LDL 82 mg/dL 06/17/2016 Lipid Ord30 C/HDL 3.0 Ratio 06/17/2016 %Hba1C Aid269 % HbA1c 15541-1 6.0 % 06/17/2016 %Hba1C Ouq116 Gluc Ave 126 mg/dL 06/17/2016 Total Psa [...] 32.7 pg 06/17/2016 Cbc With Differential Ord2 [place]% 10.7 % 06/17/2016 Cbc With Differential Ord2 [...] 1.71 K/ul 06/17/2016 Cbc With Differential Ord2 [place] ABS# 0.6 K/ul 06/17/2016 Cbc With Differential Ord2 Eos ABS# 0.2 K/ul 06/17/2016 Cbc With Differential Ord2 Baso ABS# 0.0 K/ul 06/17/2016 Tsh Ord6 hTSH II 2.91 uIU/mL 06/17/2016 Tsh Ord6 hTSH II 2.45 uIU/mL 02/19/2016 %Hba1C Rqy190 % HbA1c 58561-1 5.8 % 02/19/2016 %Hba1C Xzv867 Gluc Ave 120 mg/dL 02/19/2016 Comp Metabolic Xmk578 NA 141 mEq/L 02/19/2016 Comp Metabolic Zzk694 K 4.2 mEq/L 02/19/2016 Comp Metabolic Zic709 CL 107 mEq/L 02/19/2016 Comp Metabolic Hqo852 CO2 29.0 mEq/L 02/19/2016 Comp Metabolic Ckq082 AN ION GAP 9 02/19/2016 Comp Metabolic Kkr282 GL UCOSE 106 mg/dL 02/19/2016 Comp Metabolic Lwh158 Cr eat 0.9 mg/dL 02/19/2016 Comp Metabolic Hbk908 eG FR 90 ml/min/1.73m2 02/18 Comp Metabolic Hgi440 BUN 24 mg/dL 02/19/2016 Comp Metabolic Sfb082 B/ C Ratio 27.6 Ratio 02/19/2016 Comp Metabolic Yoa978 CA LCIUM 9.1 mg/dL 02/19/2016 Comp Metabolic Kvm385 AL K PHOS 67 U/L 02/19/2016 Comp Metabolic Zca281 T(SGOT) 25 U/L 02/19/2016 Comp Metabolic Kfu132 AL T(SGPT) 31 U/L 02/19/2016 Comp Metabolic Esh301 BI LI T 0.6 mg/dL 02/19/2016 Comp Metabolic Ust247 AL BUMIN 4.1 g/dL 02/19/2016 Comp Metabolic Dhs763 TP RO 6.5 g/dL 02/19/2016 Comp Metabolic Qcg792 GL OB 2.4 g/dL 02/19/2016 Comp Metabolic Pig198 A/ G Ratio 1.7 Ratio 02/19/2016 Comp Metabolic Vip237 Os mo 286 mOsmo 02/19/2016 Cbc With [...] 31.7 pg 02/19/2016 Cbc With Differential Ord2 [place]% 10.5 % 02/19/2016 Cbc With Differential Ord2 [...] 1.59 K/ul 02/19/2016 Cbc With Differential Ord2 [place] ABS# 0.6 K/ul 02/19/2016 Cbc With Differential Ord2 Eos ABS# 0.3 K/ul 02/19/2016 Cbc With Differential Ord2 Baso ABS# 0.0 K/ul 02/19/2016 Lipid Ord30 CHOL 174 mg/dL 02/19/2016 Lipid Ord30 HDL 54.0 mg/dl 02/19/2016 Lipid Ord30 TRIG 110 mg/dL 02/19/2016 Lipid Ord30 LDL 98 mg/dL 02/19/2016 Lipid Ord30 C/HDL 3.2 Ratio 02/19/2016 %Hba1C Yps418 % HbA1c 37851-3 6.0 % 11/11/2015 %Hba1C Ytc700 Gluc Ave 126 mg/dL 11/11/2015 %Hba1C Wzc267 % HbA1c 90781-1 6.0 % 11/07/2015 %Hba1C Qot328 Gluc Ave 126 mg/dL 11/07/2015 Cbc With [...] 32.0 pg 11/06/2015 Cbc With Differential Ord2 [place]% 9.5 % 11/06/2015 Cbc With Differential Ord2 [...] 1.79 K/ul 11/06/2015 Cbc With Differential Ord2 [place] ABS# 0.6 K/ul 11/06/2015 Cbc With Differential Ord2 Eos ABS# 0.3 K/ul 11/06/2015 Cbc With Differential Ord2 Baso ABS# 0.0 K/ul 11/06/2015 Comp Metabolic Ahd162 NA 141 mEq/L 11/06/2015 Comp Metabolic Nqz445 K 4.3 mEq/L 11/06/2015 Comp Metabolic Gpz306 CL 107 mEq/L 11/06/2015 Comp Metabolic Irp365 CO2 28.0 mEq/L 11/06/2015 Comp Metabolic Rvb655 AN ION GAP 10 11/06/2015 Comp Metabolic Doz111 GL UCOSE 117 mg/dL 11/06/2015 Comp Metabolic Orl665 Cr eat 0.9 mg/dL 11/06/2015 Comp Metabolic Aer014 eG FR 88 ml/min/1.73m2 11/05 Comp Metabolic Lhd484 BUN 22 mg/dL 11/06/2015 Comp Metabolic Kwv675 B/ C Ratio 25.0 Ratio 11/06/2015 Comp Metabolic Myy337 CA LCIUM 9.1 mg/dL 11/06/2015 Comp Metabolic Gnp652 AL K PHOS 59 U/L 11/06/2015 Comp Metabolic Sim539 T(SGOT) 23 U/L 11/06/2015 Comp Metabolic Pvg166 AL T(SGPT) 26 U/L 11/06/2015 Comp Metabolic Gpu083 BI LI T 0.6 mg/dL 11/06/2015 Comp Metabolic Opk428 AL BUMIN 4.0 g/dL 11/06/2015 Comp Metabolic Nij707 TP RO 6.4 g/dL 11/06/2015 Comp Metabolic Hbg547 GL OB 2.4 g/dL 11/06/2015 Comp Metabolic Hhw555 A/ G Ratio 1.7 Ratio 11/06/2015 Comp Metabolic Wmg560 Os mo 286 mOsmo 11/06/2015 Tsh Ord6 hTSH II 2.59 uIU/mL 11/06/2015 Lipid Ord30 CHOL 159 mg/dL 11/06/2015 Lipid Ord30 HDL 42.0 mg/dl 11/06/2015 Lipid Ord30 TRIG 129 mg/dL 11/06/2015 Lipid Ord30 LDL 91 mg/dL 11/06/2015 Lipid Ord30 C/HDL 3.8 Ratio 11/06/2015 Comp Metabolic Imz411 NA 140 mEq/L 08/08/2015 Comp Metabolic Ldg169 K 4.0 mEq/L 08/08/2015 Comp Metabolic Myh559 CL 108 mEq/L 08/08/2015 Comp Metabolic Zyq678 CO2 25.0 mEq/L 08/08/2015 Comp Metabolic Csi809 AN ION GAP 11 08/08/2015 Comp Metabolic Goo708 GL UCOSE 100 mg/dL 08/08/2015 Comp Metabolic Vmm695 Cr eat 0.9 mg/dL 08/08/2015 Comp Metabolic Sfn486 eG FR 82 ml/min/1.73m2 08/07 Comp Metabolic Sbz711 BUN 19 mg/dL 08/08/2015 Comp Metabolic Uiw850 B/ C Ratio 20.2 Ratio 08/08/2015 Comp Metabolic Ywf078 CA LCIUM 8.5 mg/dL 08/08/2015 Comp Metabolic Bbk879 AL K PHOS 56 U/L 08/08/2015 Comp Metabolic Ilw224 T(SGOT) 18 U/L 08/08/2015 Comp Metabolic Epj183 AL T(SGPT) 17 U/L 08/08/2015 Comp Metabolic Jxv899 BI LI T 0.7 mg/dL 08/08/2015 Comp Metabolic Szn264 AL BUMIN 3.9 g/dL 08/08/2015 Comp Metabolic Eqf792 TP RO 6.2 g/dL 08/08/2015 Comp Metabolic Ive447 GL OB 2.3 g/dL 08/08/2015 Comp Metabolic Ekl969 A/ G Ratio 1.7 Ratio 08/08/2015 Comp Metabolic Fde245 Os mo 282 mOsmo 08/08/2015 Tsh Ord6 hTSH II 3.19 uIU/mL 08/08/2015 %Hba1C Fnu984 % HbA1c 62673-0 5.7 % 08/08/2015 %Hba1C Aly797 Gluc Ave 117 mg/dL 08/08/2015 Cbc With [...] 31.4 pg 08/08/2015 Cbc With Differential Ord2 [place]% 10.9 % 08/08/2015 Cbc With Differential Ord2 [...] 1.51 K/ul 08/08/2015 Cbc With Differential Ord2 [place] ABS# 0.6 K/ul 08/08/2015 Cbc With Differential [...] CPT-4: J3301 04/26/2018 DRAIN/INJECT JOINT/B URSA CPT-4: 12398 04/26/2018 DRAIN/INJECT JOINT/B URSA CPT-4: 85151 08/25/2017 PPPS, SUBSEQ VISIT CPT- 4: G0439 05/30/2017 ADMIN INFLUENZA VIRU S VAC CPT-4: G0008 12/21/2016 FLU VACC PRSV FREE I NC ANTIG CPT-4: 61563 12/21/2016 PPPS, SUBSEQ VISIT CPT- 4: G0439 05/21/2016 TRIAMCINOLONE ACET I [place] NOS CPT-4: J3301 04/21/2016 THER/PROPH/DIAG INJ SC/IM CPT-4: 21009 04/21/2016 DRAIN/INJECT JOINT/B URSA CPT-4: 63051 11/13/2015 PNEUMOCOCCAL VACC [address]: 17659374 CPT-4: 43910 11/13/2015 ADMIN PNEUMOCOCCAL V ACCINE SNOMED CT: 07763562 CPT-4: G0009 11/13/2015 ADMIN INFLUENZA VIRU S VAC CPT-4: G0008 11/11/2015 FLU VACC 4 AZUL 3 YRS PLUS IM SNOMED CT: 78476142 CPT-4: 50677 11/11/2015 Vital Signs Date Vital 05/22/2018 Blood Pressure 1: 130/72 Code: 8480-6 BMI: 25.5 Code: 51692-9 Heart Rate 1: 84 bpm Height: 5'7" SpO2: 96% Weight: 163 lbs 04/26/2018 Blood Pressure 1: 118/56 Code: 8480-6 BMI: 25.5 Code: 69093-6 Heart Rate 1: 60 bpm Height: 5'7" SpO2: 96% Weight: 163 lbs 12/21/2017 Blood Pressure 1: 132/56 Code: 8480-6 BMI: 25.7 Code: 79634-8 Heart Rate 1: 58 bpm Height: 5'7" SpO2: 93% Weight: 164 lbs 08/25/2017 Blood Pressure 1: 126/74 Code: 8480-6 BMI: 26.2 Code: 42980-6 Heart Rate 1: 70 bpm Height: 5'7" SpO2: 94% Weight: 167 lbs 05/30/2017 Blood Pressure 1: 120/66 Code: 8480-6 BMI: 26.6 Code: 08392-5 Heart Rate 1: 66 bpm Height: 5'7" SpO2: 95% Waist Measure (cm): 97 cm Weight: 170 lbs 04/20/2017 Blood Pressure 1: 138/78 Code: 8480-6 BMI: 26.6 Code: 84286-7 Heart Rate 1: 86 bpm Height: 5'7" SpO2: 96% Weight: 170 lbs 01/21/2017 Blood Pressure 1: 136/70 Code: 8480-6 BMI: 26.3 Code: 97796-1 Heart Rate 1: 79 bpm Height: 5'7" SpO2: 95% Weight: 168 lbs 10/22/2016 Blood Pressure 1: 134/72 Code: 8480-6 BMI: 26.3 Code: 11698-2 Heart Rate 1: 70 bpm Height: 5'7" SpO2: 95% Weight: 168 lbs 10/04/2016 Blood Pressure 1: 142/80 Code: 8480-6 BMI: 26.6 Code: 01871-0 Heart Rate 1: 72 bpm Height: 5'7" SpO2: 93% Weight: 170 lbs 06/18/2016 Blood Pressure 1: 132/76 Code: 8480-6 BMI: 26.2 Code: 84644-9 Heart Rate 1: 65 bpm Height: 5'7" SpO2: 95% Weight: 167 lbs 8 oz 05/21/2016 Blood Pressure 1: 126/76 Code: 8480-6 BMI: 26.0 Code: 45964-7 Heart Rate 1: 72 bpm Height: 5'7" SpO2: 98% Weight: 166 lbs 04/29/2016 Blood Pressure 1: 128/70 Code: 8480-6 BMI: 25.7 Code: 61728-7 Heart Rate 1: 67 bpm Height: 5'7" SpO2: 97% Temperature: 36.3 (C ) / 97.4 (F) Weight: 164 lbs 04/21/2016 Blood Pressure 1: 130/62 Code: 8480-6 BMI: 26.3 Code: 53624-8 Heart Rate 1: 74 bpm Height: 5'7" SpO2: 96% Temperature: 37.0 (C ) / 98.6 (F) Weight: 168 lbs 02/20/2016 Blood Pressure 1: 120/64 Code: 8480-6 BMI: 26.2 Code: 82912-9 Heart Rate 1: 65 bpm Height: 5'7" SpO2: 94% Weight: 167 lbs 01/01/2016 Blood Pressure 1: 106/60 Code: 8480-6 BMI: 25.7 Code: 14942-2 Heart Rate 1: 73 bpm Height: 5'7" SpO2: 98% Weight: 164 lbs 11/13/2015 Blood Pressure 1: 122/86 Code: 8480-6 BMI: 25.8 Code: 83526-3 Heart Rate 1: 80 bpm Height: 5'7" SpO2: 92% Weight: 165 lbs 11/07/2015 Blood Pressure 1: 118/64 Code: 8480-6 BMI: 25.8 Code: 14856-8 Heart Rate 1: 66 bpm Height: 5'7" SpO2: 95% Weight: 165 lbs 08/07/2015 Blood Pressure 1: 122/80 Code: 8480-6 BMI: 24.4 Code: 76303-4 Heart Rate 1: 74 bpm Height: 5'7" [...] Encounters Encounter Performer Loca tion Codes Date () 20137 EST. P ATIENT, LEVEL III Diagnosis: Pain in left hip[ICD10: M25.552] Diagnosis: Pain in left shoulder[ICD10: M25.512] Nancy Hoskins MD, [facility] CPT-4: 23205 05/22/2018 [id number] EST. PATIENT, LEVEL III Diagnosis: Essential (primary) hypertension[ICD10: I10] Diagnosis: Pain in right knee[ICD10: M25.561] Diagnosis: Pain in left shoulder[ICD10: M25.512] Lakeisha Hoskins MD, [facility] CPT- 4: 60676 04/26/2018 [id number] EST. PATIENT, LEVEL IV Diagnosis: Type 2 diabetes mellitus without complications[ICD10: E11.9] Diagnosis: Essential (primary) hypertension[ICD10: I10] Diagnosis: Pain in right knee[ICD10: M25.561] Lakeisha Hoskins MD, [facility] CPT-4: 42422 12/21/2017 [id number] EST. PATIENT, LEVEL IV Diagnosis: Type 2 diabetes mellitus without complications[ICD10: E11.9] Diagnosis: Essential (primary) hypertension[ICD10: I10] Diagnosis: Pain in right knee[ICD10: M25.561] Lakeisha Hoskins MD, [facility] CPT-4: 64407 08/25/2017 [id number] EST. PATIENT, LEVEL IV Diagnosis: Type 2 diabetes mellitus without complications[ICD10: E11.9] Diagnosis: Essential (primary) hypertension[ICD10: I10] Lakeisha Hoskins MD, [facility] CPT-4: 58217 04/20/2017 ([id number]) [id number] EST. P ATIENT, LEVEL III Diagnosis: Essential (primary) hypertension[ICD10: I10] Diagnosis: Obstructive sleep apnea (adult) (pediatric)[ICD10: G47.33] Nancy Hoskins MD, [facility] CPT-4: 96790 01/21/2017 ([id number]) 63273 EST. P ATIENT, LEVEL IV Diagnosis: Essential (primary) hypertension[ICD10: I10] Diagnosis: Type 2 diabetes mellitus without complications[ICD10: E11.9] Diagnosis: Obstructive sleep apnea (adult) (pediatric)[ICD10: G47.33] Nancy Hoskins MD, [facility] CPT-4: 60485 10/22/2016 ([id number]) 17120 EST. P ATIENT, LEVEL III Diagnosis: Localized edema[ICD10: R60.0] Diagnosis: Rash and other nonspecific skin eruption[ICD10: R21] Nancy Hoskins MD, [facility] CPT-4: 09557 10/04/2016 ([id number]) [id number] EST. P ATIENT, LEVEL IV Diagnosis: Essential (primary) hypertension[ICD10: I10] Diagnosis: Type 2 diabetes mellitus without complications[ICD10: E11.9] Diagnosis: Mixed hyperlipidemia[ICD10: E78.2] Nancy Hoskins MD, [facility] CPT-4: 01104 06/18/2016 ([id number]) 04008 EST. P ATIENT, LEVEL III Diagnosis: Cough[ICD10: R05] Diagnosis: Acute bronchitis, unspecified[ICD10: J20.9] Nancy Hoskins MD, [facility] CPT-4: 69699 04/29/2016 [id number] EST. PATIENT, LEVEL IV Diagnosis: Other acute sinusitis[ICD10: J01.80] Diagnosis: Other allergic rhinitis[ICD10: J30.89] Lakeisha Hoskins MD, [facility] CPT-4: 17110 04/21/2016 ([id number]) 55195 EST. P ATIENT, LEVEL IV Diagnosis: Essential (primary) hypertension[ICD10: I10] Diagnosis: Type 2 diabetes mellitus without complications[ICD10: E11.9] Diagnosis: Mixed hyperlipidemia[ICD10: E78.2] Diagnosis: Primary generalized (osteo)arthritis[ICD10: M15.0] Nancy Hoskins MD, [facility] CPT-4: 42002 02/20/2016 ([id number]) 53371 EST. P ATIENT, LEVEL IV Diagnosis: Cough[ICD10: R05] Diagnosis: Acute bronchitis due to Hemophilus influenzae[ICD10: J20.1] Diagnosis: Type 2 diabetes mellitus without complications[ICD10: E11.9] Diagnosis: Essential (primary) hypertension[ICD10: I10] Charlene Hoskins MD, [facility] CPT-4: 10455 01/01/2016 ([id number]) 99992 EST. P ATIENT, LEVEL IV Diagnosis: Essential (primary) hypertension[ICD10: I10] Diagnosis: Mixed hyperlipidemia[ICD10: E78.2] Diagnosis: Type 2 diabetes mellitus without complications[ICD10: E11.9] Nancy Hoskins MD, [facility] CPT-4: 28601 11/07/2015 OFFICE VISIT, NEW - LEVEL 4 Diagnosis: Type 2 diabetes mellitus without complications[ICD10: E11.9] Diagnosis: Essential (primary) hypertension[ICD10: I10] Diagnosis: Mixed hyperlipidemia[ICD10: E78.2] Diagnosis: Elevated prostate specific antigen [PSA][ICD10: R97.2] Nancy Hoskins MD, [facility] CPT-4: 63317 08/07/2015 Plan of Care Planned Activity Notes C odes Status Date Visit Plan: Left shoulder pain -sta rted six weeks ago after a fall -will get xrays today and proceed as indicated -okay to take tylenol as needed for pain Left hip pain -also started after fall -xray hip today as well 05/22/2018 Appointment: Nancy Tavares WPtel: [address] [place], [place] [phone] (30 min) [facility] 05/22/2018 Patient Education: Patient Medication Summary [...] injection. 04/26/2018 Appointment: Lakeisha Putnam WPtel: [phone] [facility] (30 min) Complex 04/26/2018 Patient Education: [...] not improve. 12/21/2017 Appointment: Lakeisha Putnam WPtel: [phone] [phone] (15 min) Moderate 12/21/2017 Patient Education: Patient [...] of injection. 08/25/2017 Appointment: Lakeisha Putnam WPtel: [facility] (15 min) Moderate 08/25/2017 Patient Education: Patient [...] Summary Completed 05/30/2017 Appointment: Lakeisha Putnam WPtel: [facility] [id number] M[facility] - Annual Wellness Visit 05/27/2017 Appointment: Nancy Tavares [facility]Ptel[phone] [phone] (30 min) Complex 04/22/2017 Visit Plan: Hypertension [...] controlled. 04/20/2017 Appointment: Lakeisha Putnam WPtel: [phone] (30 min) Complex 04/20/2017 Patient Education: Patient [...] improved sleep, etc. Will fax note to [facility]. 01/21/2017 Appointment: Nancy Tavares WPtel: [phone] [phone] (30 min) Complex 01/21/2017 Appointment: Nancy Tavares [facility]Ptel[phone] [phone] (30 min) Complex 01/21/2017 Patient Education: Patient [...] doing well-due for a new machine-will call [facility] to see what we need to do to get him a new machine. 10/22/2016 Appointment: Nancy Tavares WPtel: [phone] [phone] (30 min) Complex 10/22/2016 Patient Education: [...] plan. 10/04/2016 Appointment: Nancy Tavares WPtel: [phone] [phone] (15 min) Moderate 10/04/2016 Patient Education: [...] dications. 06/18/2016 Appointment: Nancy Tavares WPtel: [phone] [phone] (15 min) Moderate 06/18/2016 Patient Education: [...] acutely worsen. 04/29/2016 Appointment: Nancy Tavares WPtel: [address] [place] [phone] (15 min) Moderate 04/29/2016 Patient Education: Patient Medication Summary Completed 04/29/2016 Care Plan: CHEST X-RAY 2VW FRONTAL&LATL LOINC : 30559-6 Pending 04/29/2016 Visit Plan: Sinusitis - Pt [...] allergy spray. 04/21/2016 Appointment: Lakeisha Putnam WPtel: [address] [place], [place] [phone] (15 min) Moderate 04/21/2016 Patient Education: Patient [...] provided 02/20/2016 Appointment: Nancy Tavares WPtel: [phone] [phone] (30 min) Complex 02/20/2016 Patient Education: [...] controlled. 01/01/2016 Appointment: [phone] [place] (15 min) Moderate 01/01/2016 Patient Education: [...] of injection. 11/13/2015 Appointment: Nancy Tavares WPtel: [phone] (15 min) Moderate 11/13/2015 Patient Education: Patient [...] response to medications. DM-too early for Hgb [id number] to have done next week 11/07/2015 Appointment: Nancy Tavares WPtel: [phone] (15 min) Moderate 11/07/2015 Patient Education: Patient [...] biopsy results 08/07/2015 Appointment: Nancy Tavares WPtel: [phone] New Patient 08/07/2015 Patient Education: Patient Medication [...] pain occurs at the site of injection. XRAY LEFT SHOULDER A ND LEFT HIP . Left shoulder pain -started six weeks ago after a fall -will get xrays today and proceed as indicated -okay to take tylenol as needed for pain Left hip pain -also started after fall -xray hip today as well . Medicare Exam - to day we [...] doing well-due for a new machine-will call [facility] to see what we need to do [...] response to medications. DM-too early for Hgb [id number] to have done next week . Hypertension [...] improved sleep, etc. Will fax note to [facility]. . 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 Edema - [...]
--- OUTSIDE RECORDS SUMMARY | 2019-04-11 03:37 | XMS REPORT | CCD ---
Author Author Cesar Tavares Organization Charlene Hoskins MD, [facility] Address [address] [place] [address] Phone Care Team Providers Care Theater Manager Name Role Phone PP Unavailable CCM Unavailable Summary Purpose Interface Exchange Insurance Providers Payer name Policy type / Coverage type Covered republican ID Effective Begin Date Effective End Date WPS Medicare Part B Medicare Part B [id number] Unknown [facility] Part B [id number] Un known Family history Brother Diagnosis Age [...] Retir ed 08/07/[address]: 4608561 Quit over 10 years ago 1970 08/07/[address]: 179617136 Never drinks alcohol 08/07/2015 Allergies, Adverse Reactions, [...] mc g-50 mcg/dose powder for inhalation RxNorm: 9463454 INHALE 1 DOSE BY MOUTH TWICE DAILY 05/22/2018 No Stop Date Active fluticasone propiona te 50 mcg/actuation nasal spray,suspension RxNorm: 9843591 USE 2 SPRAY(S) IN EACH NOSTRIL ONCE DAILY 05/17/2018 No Stop Date Active simvastatin 20 mg ta blet RxNorm: 320456 TAKE 1 TABLET BY MOUT H ONCE DAILY 05/16/2018 No Stop Date Active Kenalog 40 mg/mL maggie pension for injection RxNorm: 0308826 1 Milliliter(s) Inj 04/26/2018 04/26/2018 In active Kenalog 40 mg/mL maggie pension for injection RxNorm: 9589761 1 Milliliter(s) Inj 04/26/2018 04/26/2018 In active losartan 50 mg tablet RxNorm: 528250 TAKE 1 TABLET BY MOUTH ONCE DAILY 04/24/2018 No Stop Date Active fluticasone propiona te 50 mcg/actuation nasal spray,suspension RxNorm: 5635865 USE 2 SPRAY(S) IN EACH NOSTRIL ONCE DAILY 03/27/2018 05/16/2018 Inactive Advair Diskus 250 mc g-50 mcg/dose powder for inhalation RxNorm: 2165885 INHALE 1 DOSE BY MOUTH TWICE DAILY 03/21/2018 05/21/2018 Inactive montelukast 10 mg ta blet RxNorm: 977041 TAKE ONE TABLET BY MO UT ONCE DAILY 03/15/2018 No Stop Date Active Advair Diskus 250 mc g-50 mcg/dose powder for inhalation RxNorm: 4311001 INHALE 1 DOSE BY MOUTH TWICE DAILY 02/20/2018 03/20/2018 Inactive fluticasone 50 mcg/a ctuation nasal spray,suspension RxNorm: 2186152 USE 2 SPRAY(S) IN EACH NOSTRIL ONCE DAILY 02/08/2018 03/26/2018 Inactive metformin 500 mg tablet RxNorm: 608397 TAKE 1 TABLET BY MOUTH ONCE DAILY 01/16/2018 No Stop Date Active Advair Diskus 250 mc g-50 mcg/dose powder for inhalation RxNorm: 6805581 INHALE 1 DOSE BY MOUTH TWICE DAILY 12/19/2017 02/19/2018 Inactive meloxicam 7.5 mg tablet RxNorm: 658306 TAKE 1 TABLET BY MOUTH ONCE DAILY 12/01/2017 No Stop Date Active simvastatin 20 mg ta blet RxNorm: 296546 TAKE 1 TABLET BY MOUT H ONCE DAILY 11/14/2017 05/15/2018 In active losartan 50 mg tablet RxNorm: 258417 TAKE ONE TABLET BY MOUTH ONCE DAILY 10/27/2017 04/23/2018 In active Advair Diskus 250 mc g-50 mcg/dose powder for inhalation RxNorm: 5305278 INHALE 1 DOSE BY MOUTH TWICE DAILY 10/19/2017 12/18/2017 Inactive fluticasone 50 mcg/a ctuation nasal spray,suspension RxNorm: 0142596 USE TWO SPRAY(S) IN EACH NOSTRIL ONCE DAILY 10/19/2017 02/07/2018 Inactive Kenalog 40 mg/mL maggie pension for injection RxNorm: 4889586 1 Milliliter(s) Inj 08/25/2017 08/25/2017 In active meloxicam 7.5 mg tablet RxNorm: 636195 TAKE ONE TABLET BY MOUTH ONCE DAILY 06/06/2017 11/30/2017 In active simvastatin 20 mg ta blet RxNorm: 064508 TAKE ONE TABLET BY MO UTH ONCE DAILY 05/17/2017 11/13/2017 In active metformin 500 mg tablet RxNorm: 962916 TAKE ONE TABLET BY MOUTH ONCE DAILY 05/05/2017 01/15/2018 In active Advair Diskus 250 mc g-50 mcg/dose powder for inhalation RxNorm: 9780902 INHALE ONE DOSE BY MOUTH TWICE DAILY 04/19/2017 10/18/2017 Inactive Tamiflu 75 mg capsule RxNorm: 361168 1 Capsule(s) PO daily 03/25/2017 03/24/2017 Inactive Tamiflu 75 mg capsule RxNorm: 242468 1 Capsule(s) PO daily 03/25/2017 03/31/2017 Inactive montelukast 10 mg ta blet RxNorm: 759397 TAKE ONE TABLET BY MO UTH ONCE DAILY 03/21/2017 03/14/2018 In active losartan 50 mg tablet RxNorm: 493504 TAKE ONE TABLET BY MOUTH ONCE DAILY 01/27/2017 10/26/2017 In active fluticasone 50 mcg/a ctuation nasal spray,suspension RxNorm: 1816992 USE TWO SPRAY(S) IN EACH NOSTRIL ONCE DAILY 01/17/2017 10/18/2017 Inactive meloxicam 7.5 mg tablet RxNorm: 776428 TAKE ONE TABLET BY MOUTH ONCE DAILY 12/06/2016 06/03/2017 In active metformin 500 mg tablet RxNorm: 342201 Tablet(s) TAKE ONE TABLET BY MOUTH TWICE DAILY 11/30/2016 11/24/2017 Inactive simvastatin 20 mg ta blet RxNorm: 041111 TAKE ONE TABLET BY MO UT ONCE DAILY 11/15/2016 05/13/2017 In active Advair Diskus 250 mc g-50 mcg/dose powder for inhalation RxNorm: 6452444 INHALE ONE PUFF BY MOUTH TWICE DAILY 10/22/2016 04/18/2017 Inactive ketoconazole 2 % sha mpoo RxNorm: 795546 1 Application TOP TIW 10/04/2016 10/17/2016 Inactive fluticasone 50 mcg/a ctuation nasal spray,suspension RxNorm: 9755919 USE TWO SPRAY(S) IN EACH NOSTRIL ONCE DAILY 09/21/2016 11/19/2016 Inactive montelukast 10 mg ta blet RxNorm: 782783 TAKE ONE TABLET BY MO [facility] ONCE DAILY 09/21/2016 03/19/2017 In active losartan 50 mg tablet RxNorm: 078862 TAKE ONE TABLET BY MOUTH ONCE DAILY 08/02/2016 01/26/2017 In active metformin 500 mg tablet RxNorm: 566883 TAKE ONE TABLET BY MOUTH TWICE DAILY 07/22/2016 10/19/2016 In active furosemide 20 mg tablet RxNorm: 355889 1 Tablet(s) PO daily as needed for swell ing 07/21/2016 04/18/2018 Inactive meloxicam 7.5 mg tablet RxNorm: 020578 TAKE ONE TABLET BY MOUTH ONCE DAILY 06/08/2016 12/04/2016 In active cefdinir 300 mg capsule RxNorm: 348633 1 Capsule(s) PO BID 04/29/2016 05/05/2016 Inactive prednisone 20 mg tablet RxNorm: 820747 1 Tablet(s) PO BID 04/29/2016 05/03/2016 Inactive Zithromax Z-Sherif 250 mg tablet RxNorm: 557978 1 Tablet(s) PO UD 04/21/2016 04/28/2016 Inactive Kenalog 40 mg/mL maggie pension for injection RxNorm: 5165753 1 Milliliter(s) Inj 04/21/2016 04/21/2016 In active montelukast 10 mg ta blet RxNorm: 687583 TAKE ONE TABLET BY [facility] ONCE DAILY 03/22/2016 09/17/2016 In active fluticasone 50 mcg/a ctuation nasal spray,suspension RxNorm: 0015845 2 [place] NASAL daily each nare 03/15/2016 07/12/2016 Inactive qs metformin 500 mg tablet RxNorm: 488514 1 Tablet(s) PO daily 01/16/2016 2016 Inactive Patient does not need a refill- just upd ate dosing Advair Diskus 250 mc g-50 mcg/dose powder for inhalation RxNorm: 9382650 1 INH BID 01/01/2016 04/29/2016 In active Advair Diskus 250 mc g-50 mcg/dose powder for inhalation RxNorm: 2829774 1 INH daily 01/01/2016 12/31/2015 Inactive metformin 500 mg tablet RxNorm: 624252 1 Tablet(s) PO daily 01/01/2016 01/15/2016 Inactive simvastatin 40 mg ta blet RxNorm: 213009 1 Tablet(s) PO daily 01/01/2016 04/17/2018 Inactive azithromycin 250 mg tablet RxNorm: 690074 1 Tablet(s) PO take t wo pills on day #1, then one pill daily x 4 more days 01/01/2016 02/17/2016 Inactive meloxicam 7.5 mg tablet RxNorm: 146880 1 Tablet(s) PO daily 12/11/2015 06/07/2016 Inactive simvastatin 20 mg ta blet RxNorm: 152248 1 Tablet(s) PO daily 11/21/2015 12/31/2015 Inactive metformin 500 mg tablet RxNorm: 000835 1 Tablet(s) PO BID 11/21/2015 12/31/2015 Inactive Advair Diskus 250 mc g-50 mcg/dose powder for inhalation RxNorm: 4605327 1 INH BID 11/21/2015 12/31/2015 In active montelukast 10 mg ta blet RxNorm: 102556 1 Tablet(s) PO daily 09/25/2015 03/21/2016 Inactive losartan 50 mg tablet RxNorm: 879772 1 Tablet(s) PO daily 09/04/2015 08/01/2016 Inactive Restasis 0.05 % eye drops in a dropperette RxNorm: 226477 1 gtts OPH BID 08/07/2015 No Stop Date Active meloxicam 7.5 mg tablet RxNorm: 092054 1 Tablet(s) PO daily 08/07/2015 09/05/2015 Inactive Kay oral RxNorm: 674160 oral No Start Date Active finasteride 5 mg tablet RxNorm: 649030 1 Tablet(s) PO daily No Start Date Active Zyrtec 10 mg tablet RxNorm: 1037139 1 Tablet(s) PO daily No Start Date Active Co Q-10 200 mg capsule RxNorm: 065380 1 Capsule(s) PO daily No Start Date Active Calcium 500 + D (D3) oral RxNorm: 112927 oral No S tart Date Active simethicone 125 mg c apsule RxNorm: 772742 Capsule(s) PO as needed No Start Date Active Vitamin D3 1,000 uni t tablet RxNorm: 666859 1 Tablet(s) PO daily No Start Date Active omega-3 fatty acids 1,000 mg capsule RxNorm: 4 Capsule(s) PO daily No Start Date Active triamcinolone aceton chasity 0.1 % topical cream RxNorm: 5337459 1 TOP UD No Start Date Active fluticasone 50 mcg/a ctuation nasal spray,suspension RxNorm: 0542007 2 [place] NASAL daily each nare No Start Date 03/14/2016 Inactive losartan 50 mg tablet RxNorm: 190040 1 Tablet(s) PO daily No Start Date 09/03/2015 Inactive metformin 500 mg tablet RxNorm: 648080 1 Tablet(s) PO daily No Start Date 11/20/2015 Inactive simvastatin 40 mg ta blet RxNorm: 241985 1 Tablet(s) PO daily No Start Date 11/20/2015 Inactive furosemide 20 mg tablet RxNorm: 398450 1 Tablet(s) PO daily as needed No Start Date 07/20/2016 Inactive Advair Diskus 250 mc g-50 mcg/dose powder for inhalation RxNorm: 7235899 1 INH daily No Start Date 11/20/2015 Inactive Multiple Vitamin oral RxNorm: 53529 oral No Start Date 12/31/2015 Inactive montelukast 10 mg ta blet RxNorm: 599905 1 Tablet(s) PO daily No Start Date 09/24/2015 Inactive Medication Administered Medication Codes Instruc tions Start Date Status Kenalog 40 mg/mL suspension for injection RxNorm: 1345449 1Milliliter 04/26/2018 N o longer Active Kenalog 40 mg/mL suspension for injection RxNorm: 9043420 1Milliliter 04/26/2018 N o longer Active Kenalog 40 mg/mL suspension for injection RxNorm: 0568938 1Milliliter 08/25/2017 N o longer Active Kenalog 40 mg/mL suspension for injection RxNorm: 5199530 1Milliliter 04/21/2016 N o longer Active Immunizations [...] Code Item Item Code Result Date %Hba1C Zhs709 % HbA1c 85915-9 6.0 % 12/21/2017 %Hba1C Mhr105 Gluc Ave 126 mg/dL 12/21/2017 %Hba1C Zey542 % HbA1c 89100-5 6.2 % 04/20/2017 %Hba1C Iuo810 Gluc Ave 131 mg/dL 04/20/2017 Cbc With [...] 31.8 pg 04/20/2017 Cbc With Differential Ord2 [place]% 9.3 % 04/20/2017 Cbc With Differential Ord2 [...] 1.82 K/ul 04/20/2017 Cbc With Differential Ord2 [place] ABS# 0.6 K/ul 04/20/2017 Cbc With Differential Ord2 Eos ABS# 0.2 K/ul 04/20/2017 Cbc With Differential Ord2 Baso ABS# 0.0 K/ul 04/20/2017 Comp Metabolic Jye352 NA 141 mEq/L 04/20/2017 Comp Metabolic Str604 K 4.5 mEq/L 04/20/2017 Comp Metabolic Uxb233 CL 106 mEq/L 04/20/2017 Comp Metabolic Fxj365 CO2 27.0 mEq/L 04/20/2017 Comp Metabolic Gnf847 AN ION GAP 13 04/20/2017 Comp Metabolic Sqq834 GL UCOSE 109 mg/dL 04/20/2017 Comp Metabolic Qyy112 Cr eat 1.0 mg/dL 04/20/2017 Comp Metabolic Vvu599 eG FR 81 ml/min/1.73m2 04/20 Comp Metabolic Imt876 BUN 23 mg/dL 04/20/2017 Comp Metabolic Ogg031 B/ C Ratio 24.2 Ratio 04/20/2017 Comp Metabolic Hsq976 CA LCIUM 9.3 mg/dL 04/20/2017 Comp Metabolic Lbl041 AL K PHOS 82 U/L 04/20/2017 Comp Metabolic Qem188 T(SGOT) 22 U/L 04/20/2017 Comp Metabolic Pza103 AL T(SGPT) 24 U/L 04/20/2017 Comp Metabolic Jou679 BI LI T 0.4 mg/dL 04/20/2017 Comp Metabolic Iwq970 AL BUMIN 4.3 g/dL 04/20/2017 Comp Metabolic Pjj473 TP RO 6.8 g/dL 04/20/2017 Comp Metabolic Xtg796 GL OB 2.5 g/dL 04/20/2017 Comp Metabolic Srx141 A/ G Ratio 1.7 Ratio 04/20/2017 Comp Metabolic Zgx842 Os mo 286 mOsmo 04/20/2017 %Hba1C Mot918 % HbA1c 15912-3 5.8 % 10/22/2016 %Hba1C Kss586 Gluc Ave 120 mg/dL 10/22/2016 Cbc With [...] 32.5 pg 10/22/2016 Cbc With Differential Ord2 [place]% 10.3 % 10/22/2016 Cbc With Differential Ord2 [...] 1.85 K/ul 10/22/2016 Cbc With Differential Ord2 [place] ABS# 0.8 K/ul 10/22/2016 Cbc With Differential Ord2 Eos ABS# 0.3 K/ul 10/22/2016 Cbc With Differential Ord2 Baso ABS# 0.0 K/ul 10/22/2016 Comp Metabolic Ejc303 NA 141 mEq/L 10/22/2016 Comp Metabolic Wxh909 K 4.4 mEq/L 10/22/2016 Comp Metabolic Weo198 CL 105 mEq/L 10/22/2016 Comp Metabolic Crt022 CO2 27.0 mEq/L 10/22/2016 Comp Metabolic Izp600 AN ION GAP 13 10/22/2016 Comp Metabolic Pqh842 GL UCOSE 103 mg/dL 10/22/2016 Comp Metabolic Izd758 Cr eat 1.0 mg/dL 10/22/2016 Comp Metabolic Sqt982 eG FR 76 ml/min/1.73m2 10/22 Comp Metabolic Azi817 BUN 27 mg/dL 10/22/2016 Comp Metabolic Qox571 B/ C Ratio 27.0 Ratio 10/22/2016 Comp Metabolic Jps228 CA LCIUM 9.3 mg/dL 10/22/2016 Comp Metabolic Cyo228 AL K PHOS 72 U/L 10/22/2016 Comp Metabolic Uai661 T(SGOT) 23 U/L 10/22/2016 Comp Metabolic Shm112 AL T(SGPT) 26 U/L 10/22/2016 Comp Metabolic Upt886 BI LI T 0.4 mg/dL 10/22/2016 Comp Metabolic Tej644 AL BUMIN 4.2 g/dL 10/22/2016 Comp Metabolic Pqw078 TP RO 6.7 g/dL 10/22/2016 Comp Metabolic Bfd135 GL OB 2.5 g/dL 10/22/2016 Comp Metabolic Tzb994 A/ G Ratio 1.6 Ratio 10/22/2016 Comp Metabolic Zes426 Os mo 287 mOsmo 10/22/2016 Comp Metabolic Wgc609 NA 143 mEq/L 06/17/2016 Comp Metabolic Axc136 K 4.1 mEq/L 06/17/2016 Comp Metabolic Ruy384 CL 108 mEq/L 06/17/2016 Comp Metabolic Kdh542 CO2 28.0 mEq/L 06/17/2016 Comp Metabolic Vrr779 AN ION GAP 11 06/17/2016 Comp Metabolic Rnw107 GL UCOSE 106 mg/dL 06/17/2016 Comp Metabolic Ppd866 Cr eat 0.9 mg/dL 06/17/2016 Comp Metabolic Kvb954 eG FR 92 ml/min/1.73m2 06/17 Comp Metabolic Ync407 BUN 22 mg/dL 06/17/2016 Comp Metabolic Pvw426 B/ C Ratio 25.9 Ratio 06/17/2016 Comp Metabolic Iqb744 CA LCIUM 8.8 mg/dL 06/17/2016 Comp Metabolic Rmd600 AL K PHOS 55 U/L 06/17/2016 Comp Metabolic Fcm384 T(SGOT) 21 U/L 06/17/2016 Comp Metabolic Rvs768 AL T(SGPT) 24 U/L 06/17/2016 Comp Metabolic Crn405 BI LI T 0.6 mg/dL 06/17/2016 Comp Metabolic Xjw882 AL BUMIN 4.0 g/dL 06/17/2016 Comp Metabolic Znf616 TP RO 6.2 g/dL 06/17/2016 Comp Metabolic Hms831 GL OB 2.2 g/dL 06/17/2016 Comp Metabolic Nem558 A/ G Ratio 1.8 Ratio 06/17/2016 Comp Metabolic Qsf840 Os mo 289 mOsmo 06/17/2016 Lipid Ord30 CHOL 163 mg/dL 06/17/2016 Lipid Ord30 HDL 54.0 mg/dl 06/17/2016 Lipid Ord30 TRIG 133 mg/dL 06/17/2016 Lipid Ord30 LDL 82 mg/dL 06/17/2016 Lipid Ord30 C/HDL 3.0 Ratio 06/17/2016 %Hba1C Ihm714 % HbA1c 94989-6 6.0 % 06/17/2016 %Hba1C Lvw269 Gluc Ave 126 mg/dL 06/17/2016 Total Psa [...] 32.7 pg 06/17/2016 Cbc With Differential Ord2 [place]% 10.7 % 06/17/2016 Cbc With Differential Ord2 [...] 1.71 K/ul 06/17/2016 Cbc With Differential Ord2 [place] ABS# 0.6 K/ul 06/17/2016 Cbc With Differential Ord2 Eos ABS# 0.2 K/ul 06/17/2016 Cbc With Differential Ord2 Baso ABS# 0.0 K/ul 06/17/2016 Tsh Ord6 hTSH II 2.91 uIU/mL 06/17/2016 Tsh Ord6 hTSH II 2.45 uIU/mL 02/19/2016 %Hba1C Mqg888 % HbA1c 21988-1 5.8 % 02/19/2016 %Hba1C Wmv563 Gluc Ave 120 mg/dL 02/19/2016 Comp Metabolic Bht214 NA 141 mEq/L 02/19/2016 Comp Metabolic Bmv355 K 4.2 mEq/L 02/19/2016 Comp Metabolic Hnl797 CL 107 mEq/L 02/19/2016 Comp Metabolic Nhn646 CO2 29.0 mEq/L 02/19/2016 Comp Metabolic Goo657 AN ION GAP 9 02/19/2016 Comp Metabolic Bim389 GL UCOSE 106 mg/dL 02/19/2016 Comp Metabolic Jrb429 Cr eat 0.9 mg/dL 02/19/2016 Comp Metabolic Ajg868 eG FR 90 ml/min/1.73m2 02/18 Comp Metabolic Kap275 BUN 24 mg/dL 02/19/2016 Comp Metabolic Zfc026 B/ C Ratio 27.6 Ratio 02/19/2016 Comp Metabolic Utx931 CA LCIUM 9.1 mg/dL 02/19/2016 Comp Metabolic Hwu378 AL K PHOS 67 U/L 02/19/2016 Comp Metabolic Pfz277 T(SGOT) 25 U/L 02/19/2016 Comp Metabolic Aax951 AL T(SGPT) 31 U/L 02/19/2016 Comp Metabolic Mag994 BI LI T 0.6 mg/dL 02/19/2016 Comp Metabolic Pmw606 AL BUMIN 4.1 g/dL 02/19/2016 Comp Metabolic Mvs273 TP RO 6.5 g/dL 02/19/2016 Comp Metabolic Vzl441 GL OB 2.4 g/dL 02/19/2016 Comp Metabolic Oqk878 A/ G Ratio 1.7 Ratio 02/19/2016 Comp Metabolic Tko438 Os mo 286 mOsmo 02/19/2016 Cbc With [...] 31.7 pg 02/19/2016 Cbc With Differential Ord2 [place]% 10.5 % 02/19/2016 Cbc With Differential Ord2 [...] 1.59 K/ul 02/19/2016 Cbc With Differential Ord2 [place] ABS# 0.6 K/ul 02/19/2016 Cbc With Differential Ord2 Eos ABS# 0.3 K/ul 02/19/2016 Cbc With Differential Ord2 Baso ABS# 0.0 K/ul 02/19/2016 Lipid Ord30 CHOL 174 mg/dL 02/19/2016 Lipid Ord30 HDL 54.0 mg/dl 02/19/2016 Lipid Ord30 TRIG 110 mg/dL 02/19/2016 Lipid Ord30 LDL 98 mg/dL 02/19/2016 Lipid Ord30 C/HDL 3.2 Ratio 02/19/2016 %Hba1C Bhz515 % HbA1c 98476-3 6.0 % 11/11/2015 %Hba1C Dzc582 Gluc Ave 126 mg/dL 11/11/2015 %Hba1C Vkh057 % HbA1c 82107-7 6.0 % 11/07/2015 %Hba1C Ddg533 Gluc Ave 126 mg/dL 11/07/2015 Cbc With [...] 32.0 pg 11/06/2015 Cbc With Differential Ord2 [place]% 9.5 % 11/06/2015 Cbc With Differential Ord2 [...] 1.79 K/ul 11/06/2015 Cbc With Differential Ord2 [place] ABS# 0.6 K/ul 11/06/2015 Cbc With Differential Ord2 Eos ABS# 0.3 K/ul 11/06/2015 Cbc With Differential Ord2 Baso ABS# 0.0 K/ul 11/06/2015 Comp Metabolic Tac169 NA 141 mEq/L 11/06/2015 Comp Metabolic Ola100 K 4.3 mEq/L 11/06/2015 Comp Metabolic Nqx507 CL 107 mEq/L 11/06/2015 Comp Metabolic Veg849 CO2 28.0 mEq/L 11/06/2015 Comp Metabolic Hjn095 AN ION GAP 10 11/06/2015 Comp Metabolic Fmq006 GL UCOSE 117 mg/dL 11/06/2015 Comp Metabolic Hnv072 Cr eat 0.9 mg/dL 11/06/2015 Comp Metabolic Cmw531 eG FR 88 ml/min/1.73m2 11/05 Comp Metabolic Qzd469 BUN 22 mg/dL 11/06/2015 Comp Metabolic Rai399 B/ C Ratio 25.0 Ratio 11/06/2015 Comp Metabolic Jgj065 CA LCIUM 9.1 mg/dL 11/06/2015 Comp Metabolic Ijc200 AL K PHOS 59 U/L 11/06/2015 Comp Metabolic Wuq086 T(SGOT) 23 U/L 11/06/2015 Comp Metabolic Kvt240 AL T(SGPT) 26 U/L 11/06/2015 Comp Metabolic Pxf491 BI LI T 0.6 mg/dL 11/06/2015 Comp Metabolic Mrw358 AL BUMIN 4.0 g/dL 11/06/2015 Comp Metabolic Fdc614 TP RO 6.4 g/dL 11/06/2015 Comp Metabolic Ngp541 GL OB 2.4 g/dL 11/06/2015 Comp Metabolic Sek145 A/ G Ratio 1.7 Ratio 11/06/2015 Comp Metabolic Kcn956 Os mo 286 mOsmo 11/06/2015 Tsh Ord6 hTSH II 2.59 uIU/mL 11/06/2015 Lipid Ord30 CHOL 159 mg/dL 11/06/2015 Lipid Ord30 HDL 42.0 mg/dl 11/06/2015 Lipid Ord30 TRIG 129 mg/dL 11/06/2015 Lipid Ord30 LDL 91 mg/dL 11/06/2015 Lipid Ord30 C/HDL 3.8 Ratio 11/06/2015 Comp Metabolic Alz997 NA 140 mEq/L 08/08/2015 Comp Metabolic Qhp474 K 4.0 mEq/L 08/08/2015 Comp Metabolic Kjy794 CL 108 mEq/L 08/08/2015 Comp Metabolic Jgh184 CO2 25.0 mEq/L 08/08/2015 Comp Metabolic Cqe258 AN ION GAP 11 08/08/2015 Comp Metabolic Ohv613 GL UCOSE 100 mg/dL 08/08/2015 Comp Metabolic Kje435 Cr eat 0.9 mg/dL 08/08/2015 Comp Metabolic Mtb857 eG FR 82 ml/min/1.73m2 08/07 Comp Metabolic Svf683 BUN 19 mg/dL 08/08/2015 Comp Metabolic Nsp654 B/ C Ratio 20.2 Ratio 08/08/2015 Comp Metabolic Spt720 CA LCIUM 8.5 mg/dL 08/08/2015 Comp Metabolic Llj354 AL K PHOS 56 U/L 08/08/2015 Comp Metabolic Lyv143 T(SGOT) 18 U/L 08/08/2015 Comp Metabolic Lue408 AL T(SGPT) 17 U/L 08/08/2015 Comp Metabolic Tyt350 BI LI T 0.7 mg/dL 08/08/2015 Comp Metabolic Paj782 AL BUMIN 3.9 g/dL 08/08/2015 Comp Metabolic Miv782 TP RO 6.2 g/dL 08/08/2015 Comp Metabolic Obc338 GL OB 2.3 g/dL 08/08/2015 Comp Metabolic Sid559 A/ G Ratio 1.7 Ratio 08/08/2015 Comp Metabolic Gjp001 Os mo 282 mOsmo 08/08/2015 Tsh Ord6 hTSH II 3.19 uIU/mL 08/08/2015 %Hba1C Gof258 % HbA1c 80648-6 5.7 % 08/08/2015 %Hba1C Ldq839 Gluc Ave 117 mg/dL 08/08/2015 Cbc With [...] 31.4 pg 08/08/2015 Cbc With Differential Ord2 [place]% 10.9 % 08/08/2015 Cbc With Differential Ord2 [...] 1.51 K/ul 08/08/2015 Cbc With Differential Ord2 [place] ABS# 0.6 K/ul 08/08/2015 Cbc With Differential [...] CPT-4: J3301 04/26/2018 DRAIN/INJECT JOINT/B URSA CPT-4: 52398 04/26/2018 DRAIN/INJECT JOINT/B URSA CPT-4: 56457 08/25/2017 PPPS, SUBSEQ VISIT CPT- 4: G0439 05/30/2017 ADMIN INFLUENZA VIRU S VAC CPT-4: G0008 12/21/2016 FLU VACC PRSV FREE I NC ANTIG CPT-4: 38061 12/21/2016 PPPS, SUBSEQ VISIT CPT- 4: G0439 05/21/2016 TRIAMCINOLONE ACET I [place] NOS CPT-4: J3301 04/21/2016 THER/PROPH/DIAG INJ SC/IM CPT-4: 22647 04/21/2016 DRAIN/INJECT JOINT/B URSA CPT-4: 11323 11/13/2015 PNEUMOCOCCAL VACC [address]: 02663002 CPT-4: 41845 11/13/2015 ADMIN PNEUMOCOCCAL V ACCINE SNOMED CT: 22344100 CPT-4: G0009 11/13/2015 ADMIN INFLUENZA VIRU S VAC CPT-4: G0008 11/11/2015 FLU VACC 4 AZUL 3 YRS PLUS IM SNOMED CT: 01267993 CPT-4: 65820 11/11/2015 Vital Signs Date Vital 05/22/2018 Blood Pressure 1: 130/72 Code: 8480-6 BMI: 25.5 Code: 04539-4 Heart Rate 1: 84 bpm Height: 5'7" SpO2: 96% Weight: 163 lbs 04/26/2018 Blood Pressure 1: 118/56 Code: 8480-6 BMI: 25.5 Code: 98821-3 Heart Rate 1: 60 bpm Height: 5'7" SpO2: 96% Weight: 163 lbs 12/21/2017 Blood Pressure 1: 132/56 Code: 8480-6 BMI: 25.7 Code: 82045-0 Heart Rate 1: 58 bpm Height: 5'7" SpO2: 93% Weight: 164 lbs 08/25/2017 Blood Pressure 1: 126/74 Code: 8480-6 BMI: 26.2 Code: 67827-8 Heart Rate 1: 70 bpm Height: 5'7" SpO2: 94% Weight: 167 lbs 05/30/2017 Blood Pressure 1: 120/66 Code: 8480-6 BMI: 26.6 Code: 83371-4 Heart Rate 1: 66 bpm Height: 5'7" SpO2: 95% Waist Measure (cm): 97 cm Weight: 170 lbs 04/20/2017 Blood Pressure 1: 138/78 Code: 8480-6 BMI: 26.6 Code: 97520-2 Heart Rate 1: 86 bpm Height: 5'7" SpO2: 96% Weight: 170 lbs 01/21/2017 Blood Pressure 1: 136/70 Code: 8480-6 BMI: 26.3 Code: 46368-3 Heart Rate 1: 79 bpm Height: 5'7" SpO2: 95% Weight: 168 lbs 10/22/2016 Blood Pressure 1: 134/72 Code: 8480-6 BMI: 26.3 Code: 99227-9 Heart Rate 1: 70 bpm Height: 5'7" SpO2: 95% Weight: 168 lbs 10/04/2016 Blood Pressure 1: 142/80 Code: 8480-6 BMI: 26.6 Code: 87112-0 Heart Rate 1: 72 bpm Height: 5'7" SpO2: 93% Weight: 170 lbs 06/18/2016 Blood Pressure 1: 132/76 Code: 8480-6 BMI: 26.2 Code: 81403-0 Heart Rate 1: 65 bpm Height: 5'7" SpO2: 95% Weight: 167 lbs 8 oz 05/21/2016 Blood Pressure 1: 126/76 Code: 8480-6 BMI: 26.0 Code: 16351-0 Heart Rate 1: 72 bpm Height: 5'7" SpO2: 98% Weight: 166 lbs 04/29/2016 Blood Pressure 1: 128/70 Code: 8480-6 BMI: 25.7 Code: 69659-4 Heart Rate 1: 67 bpm Height: 5'7" SpO2: 97% Temperature: 36.3 (C ) / 97.4 (F) Weight: 164 lbs 04/21/2016 Blood Pressure 1: 130/62 Code: 8480-6 BMI: 26.3 Code: 70484-6 Heart Rate 1: 74 bpm Height: 5'7" SpO2: 96% Temperature: 37.0 (C ) / 98.6 (F) Weight: 168 lbs 02/20/2016 Blood Pressure 1: 120/64 Code: 8480-6 BMI: 26.2 Code: 24985-5 Heart Rate 1: 65 bpm Height: 5'7" SpO2: 94% Weight: 167 lbs 01/01/2016 Blood Pressure 1: 106/60 Code: 8480-6 BMI: 25.7 Code: 28189-2 Heart Rate 1: 73 bpm Height: 5'7" SpO2: 98% Weight: 164 lbs 11/13/2015 Blood Pressure 1: 122/86 Code: 8480-6 BMI: 25.8 Code: 78607-2 Heart Rate 1: 80 bpm Height: 5'7" SpO2: 92% Weight: 165 lbs 11/07/2015 Blood Pressure 1: 118/64 Code: 8480-6 BMI: 25.8 Code: 77920-9 Heart Rate 1: 66 bpm Height: 5'7" SpO2: 95% Weight: 165 lbs 08/07/2015 Blood Pressure 1: 122/80 Code: 8480-6 BMI: 24.4 Code: 13360-5 Heart Rate 1: 74 bpm Height: 5'7" [...] Encounter Performer Loca tion Codes Date () [id number] EST. P ATIENT, LEVEL III Diagnosis: Pain in left hip[ICD10: M25.552] Diagnosis: Pain in left shoulder[ICD10: M25.512] Nancy Hoskins MD, [facility] CPT-4: 81692 05/22/2018 [id number] EST. PATIENT, LEVEL III Diagnosis: Essential (primary) hypertension[ICD10: I10] Diagnosis: Pain in right knee[ICD10: M25.561] Diagnosis: Pain in left shoulder[ICD10: M25.512] Lakeisha Hoskins MD, [facility] CPT- 4: 74497 04/26/2018 06977 EST. PATIENT, LEVEL IV Diagnosis: Type 2 diabetes mellitus without complications[ICD10: E11.9] Diagnosis: Essential (primary) hypertension[ICD10: I10] Diagnosis: Pain in right knee[ICD10: M25.561] Lakeisha Hoskins MD, [facility] CPT-4: 91855 12/21/2017 [id number] EST. PATIENT, LEVEL IV Diagnosis: Type 2 diabetes mellitus without complications[ICD10: E11.9] Diagnosis: Essential (primary) hypertension[ICD10: I10] Diagnosis: Pain in right knee[ICD10: M25.561] Lakeisha Hoskins MD, [facility] CPT-4: 79627 08/25/2017 06561 EST. PATIENT, LEVEL IV Diagnosis: Type 2 diabetes mellitus without complications[ICD10: E11.9] Diagnosis: Essential (primary) hypertension[ICD10: I10] Lakeisha Hoskins MD, [facility] CPT-4: 96959 04/20/2017 ([id number]) 51656 EST. P ATIENT, LEVEL III Diagnosis: Essential (primary) hypertension[ICD10: I10] Diagnosis: Obstructive sleep apnea (adult) (pediatric)[ICD10: G47.33] Nanyc Hoskins MD, [facility] CPT-4: 06556 01/21/2017 ([id number]) 69922 EST. P ATIENT, LEVEL IV Diagnosis: Essential (primary) hypertension[ICD10: I10] Diagnosis: Type 2 diabetes mellitus without complications[ICD10: E11.9] Diagnosis: Obstructive sleep apnea (adult) (pediatric)[ICD10: G47.33] Nancy Hoskins MD, [facility] CPT-4: 49688 10/22/2016 ([id number]) 35015 EST. P ATIENT, LEVEL III Diagnosis: Localized edema[ICD10: R60.0] Diagnosis: Rash and other nonspecific skin eruption[ICD10: R21] Nancy Hoskins MD, [facility] CPT-4: 16556 10/04/2016 ([id number]) 92969 EST. P ATIENT, LEVEL IV Diagnosis: Essential (primary) hypertension[ICD10: I10] Diagnosis: Type 2 diabetes mellitus without complications[ICD10: E11.9] Diagnosis: Mixed hyperlipidemia[ICD10: E78.2] Nancy Hoskins MD, [facility] CPT-4: 47639 06/18/2016 ([id number]) 18459 EST. P ATIENT, LEVEL III Diagnosis: Cough[ICD10: R05] Diagnosis: Acute bronchitis, unspecified[ICD10: J20.9] Nancy Hoskins MD, [facility] CPT-4: 64056 04/29/2016 [id number] EST. PATIENT, LEVEL IV Diagnosis: Other acute sinusitis[ICD10: J01.80] Diagnosis: Other allergic rhinitis[ICD10: J30.89] Lakeisha Hoskins MD, [facility] CPT-4: 59632 04/21/2016 ([id number]) 71215 EST. P ATIENT, LEVEL IV Diagnosis: Essential (primary) hypertension[ICD10: I10] Diagnosis: Type 2 diabetes mellitus without complications[ICD10: E11.9] Diagnosis: Mixed hyperlipidemia[ICD10: E78.2] Diagnosis: Primary generalized (osteo)arthritis[ICD10: M15.0] Nancy Hoskins MD, [facility] CPT-4: 46802 02/20/2016 ([id number]) 12971 EST. P ATIENT, LEVEL IV Diagnosis: Cough[ICD10: R05] Diagnosis: Acute bronchitis due to Hemophilus influenzae[ICD10: J20.1] Diagnosis: Type 2 diabetes mellitus without complications[ICD10: E11.9] Diagnosis: Essential (primary) hypertension[ICD10: I10] Charlene Hoskins MD, [facility] CPT-4: 01953 01/01/2016 ([id number] 46961 EST. P ATIENT, LEVEL IV Diagnosis: Essential (primary) hypertension[ICD10: I10] Diagnosis: Mixed hyperlipidemia[ICD10: E78.2] Diagnosis: Type 2 diabetes mellitus without complications[ICD10: E11.9] Nancy Hoskins MD, [facility] CPT-4: 49976 11/07/2015 OFFICE VISIT, [facility] - LEVEL 4 Diagnosis: Type 2 diabetes mellitus without complications[ICD10: E11.9] Diagnosis: Essential (primary) hypertension[ICD10: I10] Diagnosis: Mixed hyperlipidemia[ICD10: E78.2] Diagnosis: Elevated prostate specific antigen [PSA][ICD10: R97.2] Nancy Hoskins MD, [facility] CPT-4: 46920 08/07/2015 Plan of Care Planned Activity Notes C odes Status Date Visit Plan: Left shoulder pain -sta rted six weeks ago after a fall -will get xrays today and proceed as indicated -okay to take tylenol as needed for pain Left hip pain -also started after fall -xray hip today as well 05/22/2018 Patient Education: Patient Medication Summary Completed [...] the site of injection. 04/26/2018 Appointment: [phone] (30 min) Complex 04/26/2018 Patient Education: Patient [...] or does not improve. 12/21/2017 Appointment: Lakeisha Putnamtel[phone] [facility] [place] (15 min) Moderate 12/21/2017 Patient Education: Patient [...] of injection. 08/25/2017 Appointment: Lakeisha Putnam WPtel: [phone] (15 min) Moderate 08/25/2017 Patient Education: Patient [...] Summary Completed 05/30/2017 Appointment: Lakeisha Putnam WPtel: [address] [place], [place] [phone] [facility] - Annual Wellness Visit 05/27/2017 Appointment: Nancy Tavares WPtel: [address] [place], [place] [phone] 04/22/2017 Visit Plan: Hypertension [...] controlled. 04/20/2017 Appointment: Lakeisha Putnam WPtel[facility] [phone] [facility] [place] (30 min) Complex 04/20/2017 Patient Education: Patient [...] improved sleep, etc. Will fax note to [facility]. 01/21/2017 Appointment: Nancy Tavares WPtel: [phone] [phone] (30 min) Complex 01/21/2017 Appointment: Nancy Tavares WPtel: [phone] [phone] (30 min) Complex 01/21/2017 Patient Education: Patient [...] doing well-due for a new machine-will call [facility] to see what we need to do to get him a new machine. 10/22/2016 Appointment: [facility]avares WPtel[phone] [phone] (30 min) Complex 10/22/2016 Patient Education: Patient [...] plan. 10/04/2016 Appointment: Nancy Tavares WPtel: [phone] [phone] (15 min) Moderate 10/04/2016 Patient Education: Patient [...] dications. 06/18/2016 Appointment: Nancy Tavares WPtel: [phone] [phone] (15 min) Moderate 06/18/2016 Patient Education: Patient [...] acutely worsen. 04/29/2016 Appointment: Nancy Tavares WPtel: [address] [place], [place] [phone] (15 min) Moderate 04/29/2016 Patient Education: Patient Medication Summary Completed 04/29/2016 Care Plan: CHEST X-RAY 2VW FRONTAL&LATL LOINC : 38902-2 Pending 04/29/2016 Visit Plan: Sinusitis - Pt [...] allergy spray. 04/21/2016 Appointment: Lakeisha Putnam WPtel: [address] [place] [id number] (15 min) Moderate 04/21/2016 Patient Education: Patient [...] provided 02/20/2016 Appointment: Nancy Tavares WPtel: [phone] [phone] (30 min) Complex 02/20/2016 Patient Education: Patient [...] less controlled. 01/01/2016 Appointment: Charl[facility]kins [facility]Ptel[phone] (15 min) Moderate 01/01/2016 Patient Education: [...] of injection. 11/13/2015 Appointment: Nancy Tavares WPtel: [phone] [phone] (15 min) Moderate 11/13/2015 Patient Education: Patient [...] response to medications. DM-too early for Hgb [id number] to have done next week 11/07/2015 Appointment: Nancy Tavares WPtel: [phone] [phone] (15 min) Moderate 11/07/2015 Patient Education: Patient [...] biopsy results 08/07/2015 Appointment: [facility]avares [facility]Ptel[phone] [place] New Patient 08/07/2015 Patient Education: Patient [...] doing well-due for a new machine-will call [facility] to see what we need to [...] TIMES WEEKLY CONTINUE STEROID CREAM ORDERED BY [employer]PER[employer] CULTURE RASH LEFT AXILLA . Edema - [...] improved sleep, etc. Will fax note to [facility]. XRAY LEFT SHOULDER A ND LEFT [...] response to medications. DM-too early for Hgb [id number] to have done next week CXR STOP SYMBICORT TWO PUFFS BID . Bronchitis - acute case of bronchitis identified. Pt has been given antibiotics, breathing treatments as appropriate, and pt has been instructed to call if symptoms are not improved, or if symptoms acutely worsen.
--- OUTSIDE RECORDS SUMMARY | 2019-04-11 03:38 | XMS REPORT | CCD ---
Author Author Cesar Tavares Organization Charlene Hoskins MD, [facility] Address [address] [place] [address] Phone Care Team Providers Care Musical Engineer Name Role Phone PP Unavailable CCM Unavailable Summary Purpose Interface Exchange Insurance Providers Payer name Policy type / Coverage type Covered republican ID Effective Begin Date Effective End Date WPS Medicare Part B Medicare Part B [id number] Unknown [facility] Part B [id number] Un known Family history Brother Diagnosis Age [...] Retir ed 08/07/[address]: 6808334 Quit over 10 years ago 1970 08/07/[address]: 950395315 Never drinks alcohol 08/07/2015 Allergies, Adverse Reactions, Alerts Substance Reaction Codes Entered Date Inactivated Date Status Penicillin Unknown 08/07/2015 No In active Date Active Past Medical History Illness Codes Condition Status Onset Date Resolved Date Essential (primary) hypertension ICD-9: 401.1 ICD-10: I10 Active 12/31/2015 Unknown Pain in left shoulder ICD-9: 719.41 ICD-10: M25.512 Active 04/26/2018 Unknown Pain in right knee ICD- 9: [...] 401.1 ICD-10: I10 12/31/2015 Active Pain in left shoulder ICD-9: 719.41 ICD-10: M25.512 04/26/2018 Active Pain in right knee ICD- 9: [...] Instruc tions Start Date Stop Date Sta Fill Instructions Advair Diskus 250 mc g-50 mcg/dose powder for inhalation RxNorm: 5088527 INHALE 1 DOSE BY MOUTH TWICE DAILY 05/22/2018 No Stop Date Active fluticasone propiona te 50 mcg/actuation nasal spray,suspension RxNorm: 0190640 USE 2 SPRAY(S) IN EACH NOSTRIL ONCE DAILY 05/17/2018 No Stop Date Active simvastatin 20 mg ta blet RxNorm: 961097 TAKE 1 TABLET BY MOUT H ONCE DAILY 05/16/2018 No Stop Date Active Kenalog 40 mg/mL maggie pension for injection RxNorm: 0081102 1 Milliliter(s) Inj 04/26/2018 04/26/2018 In active Kenalog 40 mg/mL maggie pension for injection RxNorm: 8382914 1 Milliliter(s) Inj 04/26/2018 04/26/2018 In active losartan 50 mg tablet RxNorm: 684437 TAKE 1 TABLET BY MOUTH ONCE DAILY 04/24/2018 No Stop Date Active fluticasone propiona te 50 mcg/actuation nasal spray,suspension RxNorm: 6187513 USE 2 SPRAY(S) IN EACH NOSTRIL ONCE DAILY 03/27/2018 05/16/2018 Inactive Advair Diskus 250 mc g-50 mcg/dose powder for inhalation RxNorm: 7904397 INHALE 1 DOSE BY MOUTH TWICE DAILY 03/21/2018 05/21/2018 Inactive montelukast 10 mg ta blet RxNorm: 111317 TAKE ONE TABLET BY MO UTH ONCE DAILY 03/15/2018 No Stop Date Active Advair Diskus 250 mc g-50 mcg/dose powder for inhalation RxNorm: 0758222 INHALE 1 DOSE BY MOUTH TWICE DAILY 02/20/2018 03/20/2018 Inactive fluticasone 50 mcg/a ctuation nasal spray,suspension RxNorm: 1893529 USE 2 SPRAY(S) IN EACH NOSTRIL ONCE DAILY 02/08/2018 03/26/2018 Inactive metformin 500 mg tablet RxNorm: 891105 TAKE 1 TABLET BY MOUTH ONCE DAILY 01/16/2018 No Stop Date Active Advair Diskus 250 mc g-50 mcg/dose powder for inhalation RxNorm: 0186821 INHALE 1 DOSE BY MOUTH TWICE DAILY 12/19/2017 02/19/2018 Inactive meloxicam 7.5 mg tablet RxNorm: 745230 TAKE 1 TABLET BY MOUTH ONCE DAILY 12/01/2017 No Stop Date Active simvastatin 20 mg ta blet RxNorm: 234890 TAKE 1 TABLET BY MOUT H ONCE DAILY 11/14/2017 05/15/2018 In active losartan 50 mg tablet RxNorm: 418534 TAKE ONE TABLET BY MOUTH ONCE DAILY 10/27/2017 04/23/2018 In active Advair Diskus 250 mc g-50 mcg/dose powder for inhalation RxNorm: 0080182 INHALE 1 DOSE BY MOUTH TWICE DAILY 10/19/2017 12/18/2017 Inactive fluticasone 50 mcg/a ctuation nasal spray,suspension RxNorm: 9260184 USE TWO SPRAY(S) IN EACH NOSTRIL ONCE DAILY 10/19/2017 02/07/2018 Inactive Kenalog 40 mg/mL maggie pension for injection RxNorm: 1185892 1 Milliliter(s) Inj 08/25/2017 08/25/2017 In active meloxicam 7.5 mg tablet RxNorm: 660378 TAKE ONE TABLET BY MOUTH ONCE DAILY 06/06/2017 11/30/2017 In active simvastatin 20 mg ta blet RxNorm: 463292 TAKE ONE TABLET BY MO UTH ONCE DAILY 05/17/2017 11/13/2017 In active metformin 500 mg tablet RxNorm: 001274 TAKE ONE TABLET BY MOUTH ONCE DAILY 05/05/2017 01/15/2018 In active Advair Diskus 250 mc g-50 mcg/dose powder for inhalation RxNorm: 6987880 INHALE ONE DOSE BY MOUTH TWICE DAILY 04/19/2017 10/18/2017 Inactive Tamiflu 75 mg capsule RxNorm: 900764 1 Capsule(s) PO daily 03/25/2017 03/24/2017 Inactive Tamiflu 75 mg capsule RxNorm: 359314 1 Capsule(s) PO daily 03/25/2017 03/31/2017 Inactive montelukast 10 mg ta blet RxNorm: 733358 TAKE ONE TABLET BY MO UTH ONCE DAILY 03/21/2017 03/14/2018 In active losartan 50 mg tablet RxNorm: 088954 TAKE ONE TABLET BY MOUTH ONCE DAILY 01/27/2017 10/26/2017 In active fluticasone 50 mcg/a ctuation nasal spray,suspension RxNorm: 6413512 USE TWO SPRAY(S) IN EACH NOSTRIL ONCE DAILY 01/17/2017 10/18/2017 Inactive meloxicam 7.5 mg tablet RxNorm: 441485 TAKE ONE TABLET BY MOUTH ONCE DAILY 12/06/2016 06/03/2017 In active metformin 500 mg tablet RxNorm: 970049 Tablet(s) TAKE ONE TABLET BY MOUTH TWICE DAILY 11/30/2016 11/24/2017 Inactive simvastatin 20 mg ta blet RxNorm: 565753 TAKE ONE TABLET BY MO [facility] ONCE DAILY 11/15/2016 05/13/2017 In active Advair Diskus 250 mc g-50 mcg/dose powder for inhalation RxNorm: 0730840 INHALE ONE PUFF BY MOUTH TWICE DAILY 10/22/2016 04/18/2017 Inactive ketoconazole 2 % sha mpoo RxNorm: 591565 1 Application TOP TIW 10/04/2016 10/17/2016 Inactive fluticasone 50 mcg/a ctuation nasal spray,suspension RxNorm: 3219829 USE TWO SPRAY(S) IN EACH NOSTRIL ONCE DAILY 09/21/2016 11/19/2016 Inactive montelukast 10 mg ta blet RxNorm: 092103 TAKE ONE TABLET BY [facility] ONCE DAILY 09/21/2016 03/19/2017 In active losartan 50 mg tablet RxNorm: 778399 TAKE ONE TABLET BY MOUTH ONCE DAILY 08/02/2016 01/26/2017 In active metformin 500 mg tablet RxNorm: 018749 TAKE ONE TABLET BY MOUTH TWICE DAILY 07/22/2016 10/19/2016 In active furosemide 20 mg tablet RxNorm: 723431 1 Tablet(s) PO daily as needed for swell ing 07/21/2016 04/18/2018 Inactive meloxicam 7.5 mg tablet RxNorm: 406504 TAKE ONE TABLET BY MOUTH ONCE DAILY 06/08/2016 12/04/2016 In active cefdinir 300 mg capsule RxNorm: 401862 1 Capsule(s) PO BID 04/29/2016 05/05/2016 Inactive prednisone 20 mg tablet RxNorm: 666025 1 Tablet(s) PO BID 04/29/2016 05/03/2016 Inactive Zithromax Z-Sherif 250 mg tablet RxNorm: 969405 1 Tablet(s) PO UD 04/21/2016 04/28/2016 Inactive Kenalog 40 mg/mL maggie pension for injection RxNorm: 4004853 1 Milliliter(s) Inj 04/21/2016 04/21/2016 In active montelukast 10 mg ta blet RxNorm: 540643 TAKE ONE TABLET BY [facility] ONCE DAILY 03/22/2016 09/17/2016 In active fluticasone 50 mcg/a ctuation nasal spray,suspension RxNorm: 5889876 2 [place] NASAL daily each nare 03/15/2016 07/12/2016 Inactive qs metformin 500 mg tablet RxNorm: 387783 1 Tablet(s) PO daily 01/16/2016 2016 Inactive Patient does not need a refill- just upd ate dosing Advair Diskus 250 mc g-50 mcg/dose powder for inhalation RxNorm: 9484679 1 INH BID 01/01/2016 04/29/2016 In active Advair Diskus 250 mc g-50 mcg/dose powder for inhalation RxNorm: 3314288 1 INH daily 01/01/2016 12/31/2015 Inactive metformin 500 mg tablet RxNorm: 537073 1 Tablet(s) PO daily 01/01/2016 01/15/2016 Inactive simvastatin 40 mg ta blet RxNorm: 732144 1 Tablet(s) PO daily 01/01/2016 04/17/2018 Inactive azithromycin 250 mg tablet RxNorm: 052302 1 Tablet(s) PO take t wo pills on day #1, then one pill daily x 4 more days 01/01/2016 02/17/2016 Inactive meloxicam 7.5 mg tablet RxNorm: 286141 1 Tablet(s) PO daily 12/11/2015 06/07/2016 Inactive simvastatin 20 mg ta blet RxNorm: 730948 1 Tablet(s) PO daily 11/21/2015 12/31/2015 Inactive metformin 500 mg tablet RxNorm: 978678 1 Tablet(s) PO BID 11/21/2015 12/31/2015 Inactive Advair Diskus 250 mc g-50 mcg/dose powder for inhalation RxNorm: 5242846 1 INH BID 11/21/2015 12/31/2015 In active montelukast 10 mg ta blet RxNorm: 054500 1 Tablet(s) PO daily 09/25/2015 03/21/2016 Inactive losartan 50 mg tablet RxNorm: 614978 1 Tablet(s) PO daily 09/04/2015 08/01/2016 Inactive Restasis 0.05 % eye drops in a dropperette RxNorm: 970878 1 gtts OPH BID 08/07/2015 No Stop Date Active meloxicam 7.5 mg tablet RxNorm: 826535 1 Tablet(s) PO daily 08/07/2015 09/05/2015 Inactive Kay oral RxNorm: 352206 oral No Start Date Active finasteride 5 mg tablet RxNorm: 989813 1 Tablet(s) PO daily No Start Date Active Zyrtec 10 mg tablet RxNorm: 5701078 1 Tablet(s) PO daily No Start Date Active Co Q-10 200 mg capsule RxNorm: 558525 1 Capsule(s) PO daily No Start Date Active Calcium 500 + D (D3) oral RxNorm: 891629 oral No S tart Date Active simethicone 125 mg c apsule RxNorm: 229632 Capsule(s) PO as needed No Start Date Active Vitamin D3 1,000 uni t tablet RxNorm: 705559 1 Tablet(s) PO daily No Start Date Active omega-3 fatty acids 1,000 mg capsule RxNorm: 4 Capsule(s) PO daily No Start Date Active triamcinolone aceton chasity 0.1 % topical cream RxNorm: 0523252 1 TOP UD No Start Date Active fluticasone 50 mcg/a ctuation nasal spray,suspension RxNorm: 5823742 2 [place] NASAL daily each nare No Start Date 03/14/2016 Inactive losartan 50 mg tablet RxNorm: 374822 1 Tablet(s) PO daily No Start Date 09/03/2015 Inactive metformin 500 mg tablet RxNorm: 501704 1 Tablet(s) PO daily No Start Date 11/20/2015 Inactive simvastatin 40 mg ta blet RxNorm: 463021 1 Tablet(s) PO daily No Start Date 11/20/2015 Inactive furosemide 20 mg tablet RxNorm: 431655 1 Tablet(s) PO daily as needed No Start Date 07/20/2016 Inactive Advair Diskus 250 mc g-50 mcg/dose powder for inhalation RxNorm: 4705171 1 INH daily No Start Date 11/20/2015 Inactive Multiple Vitamin oral RxNorm: 27152 oral No Start Date 12/31/2015 Inactive montelukast 10 mg ta blet RxNorm: 128668 1 Tablet(s) PO daily No Start Date 09/24/2015 Inactive Medication Administered Medication Codes Instruc tions Start Date Status Kenalog 40 mg/mL suspension for injection RxNorm: 9702062 1Milliliter 04/26/2018 N o longer Active Kenalog 40 mg/mL suspension for injection RxNorm: 9686423 1Milliliter 04/26/2018 N o longer Active Kenalog 40 mg/mL suspension for injection RxNorm: 4615078 1Milliliter 08/25/2017 N o longer Active Kenalog 40 mg/mL suspension for injection RxNorm: 2912566 1Milliliter 04/21/2016 N o longer Active Immunizations Vaccine Codes Date Status Influenza CVX: 141 12/21 completed Influenza CVX: 141 12/21 completed Pneumococcal (Adult) CVX: 133 11/13/2015 completed Influenza CVX: 141 11/10 completed Pneumococcal CVX: 33 completed Zoster CVX: 121 02/14/20 13 completed Assessments Condition Codes Effectiv e Dates Pain in right knee ICD-10: M25.561 ICD-9: 719.46 04/26/2018 Pain in left shoulder ICD-10: M25.51 2 ICD-9: 719.41 04/26/2018 Essential (primary) hypertension ICD -10: I10 [...] For Visit Effective Dates Notes shoulder pain 04/26/2018 knee pain 12/21/2017 knee [...] Code Item Item Code Result Date %Hba1C Oso444 % HbA1c 44813-7 6.0 % 12/21/2017 %Hba1C Wmu367 Gluc Ave 126 mg/dL 12/21/2017 %Hba1C Ppm516 % HbA1c 27197-3 6.2 % 04/20/2017 %Hba1C Psv014 Gluc Ave 131 mg/dL 04/20/2017 Cbc With [...] 31.8 pg 04/20/2017 Cbc With Differential Ord2 [place]% 9.3 % 04/20/2017 Cbc With Differential Ord2 [...] 1.82 K/ul 04/20/2017 Cbc With Differential Ord2 [place] ABS# 0.6 K/ul 04/20/2017 Cbc With Differential Ord2 Eos ABS# 0.2 K/ul 04/20/2017 Cbc With Differential Ord2 Baso ABS# 0.0 K/ul 04/20/2017 Comp Metabolic Brn933 NA 141 mEq/L 04/20/2017 Comp Metabolic Ali794 K 4.5 mEq/L 04/20/2017 Comp Metabolic Eby643 CL 106 mEq/L 04/20/2017 Comp Metabolic Jll762 CO2 27.0 mEq/L 04/20/2017 Comp Metabolic Ipd130 AN ION GAP 13 04/20/2017 Comp Metabolic Vio383 GL UCOSE 109 mg/dL 04/20/2017 Comp Metabolic Gdz206 Cr eat 1.0 mg/dL 04/20/2017 Comp Metabolic Ozp642 eG FR 81 ml/min/1.73m2 04/20 Comp Metabolic Zmq590 BUN 23 mg/dL 04/20/2017 Comp Metabolic Idn853 B/ C Ratio 24.2 Ratio 04/20/2017 Comp Metabolic Bam058 CA LCIUM 9.3 mg/dL 04/20/2017 Comp Metabolic Gxo177 AL K PHOS 82 U/L 04/20/2017 Comp Metabolic Rrd832 T(SGOT) 22 U/L 04/20/2017 Comp Metabolic Nap565 AL T(SGPT) 24 U/L 04/20/2017 Comp Metabolic Ezk647 BI LI T 0.4 mg/dL 04/20/2017 Comp Metabolic Rxi660 AL BUMIN 4.3 g/dL 04/20/2017 Comp Metabolic Qqp915 TP RO 6.8 g/dL 04/20/2017 Comp Metabolic Fuu726 GL OB 2.5 g/dL 04/20/2017 Comp Metabolic Pbu962 A/ G Ratio 1.7 Ratio 04/20/2017 Comp Metabolic Gft100 Os mo 286 mOsmo 04/20/2017 %Hba1C Pvc797 % HbA1c 64365-0 5.8 % 10/22/2016 %Hba1C Vnk512 Gluc Ave 120 mg/dL 10/22/2016 Cbc With [...] 32.5 pg 10/22/2016 Cbc With Differential Ord2 [place]% 10.3 % 10/22/2016 Cbc With Differential Ord2 [...] 1.85 K/ul 10/22/2016 Cbc With Differential Ord2 [place] ABS# 0.8 K/ul 10/22/2016 Cbc With Differential Ord2 Eos ABS# 0.3 K/ul 10/22/2016 Cbc With Differential Ord2 Baso ABS# 0.0 K/ul 10/22/2016 Comp Metabolic Qxt186 NA 141 mEq/L 10/22/2016 Comp Metabolic Tug803 K 4.4 mEq/L 10/22/2016 Comp Metabolic Cgt687 CL 105 mEq/L 10/22/2016 Comp Metabolic Qse303 CO2 27.0 mEq/L 10/22/2016 Comp Metabolic Ura847 AN ION GAP 13 10/22/2016 Comp Metabolic Sdr671 GL UCOSE 103 mg/dL 10/22/2016 Comp Metabolic Eqa006 Cr eat 1.0 mg/dL 10/22/2016 Comp Metabolic Qrf570 eG FR 76 ml/min/1.73m2 10/22 Comp Metabolic Omd962 BUN 27 mg/dL 10/22/2016 Comp Metabolic Rgp610 B/ C Ratio 27.0 Ratio 10/22/2016 Comp Metabolic Ngh420 CA LCIUM 9.3 mg/dL 10/22/2016 Comp Metabolic Fit192 AL K PHOS 72 U/L 10/22/2016 Comp Metabolic Mxg311 T(SGOT) 23 U/L 10/22/2016 Comp Metabolic Ied025 AL T(SGPT) 26 U/L 10/22/2016 Comp Metabolic Ers224 BI LI T 0.4 mg/dL 10/22/2016 Comp Metabolic Otw310 AL BUMIN 4.2 g/dL 10/22/2016 Comp Metabolic Opm879 TP RO 6.7 g/dL 10/22/2016 Comp Metabolic Qon524 GL OB 2.5 g/dL 10/22/2016 Comp Metabolic Kda109 A/ G Ratio 1.6 Ratio 10/22/2016 Comp Metabolic Dmx350 Os mo 287 mOsmo 10/22/2016 Comp Metabolic Hgb897 NA 143 mEq/L 06/17/2016 Comp Metabolic Nmj862 K 4.1 mEq/L 06/17/2016 Comp Metabolic Vkt739 CL 108 mEq/L 06/17/2016 Comp Metabolic Vla941 CO2 28.0 mEq/L 06/17/2016 Comp Metabolic Zcp038 AN ION GAP 11 06/17/2016 Comp Metabolic Yjg962 GL UCOSE 106 mg/dL 06/17/2016 Comp Metabolic Yzs927 Cr eat 0.9 mg/dL 06/17/2016 Comp Metabolic Qpa635 eG FR 92 ml/min/1.73m2 06/17 Comp Metabolic Ond799 BUN 22 mg/dL 06/17/2016 Comp Metabolic Cmf110 B/ C Ratio 25.9 Ratio 06/17/2016 Comp Metabolic Ado645 CA LCIUM 8.8 mg/dL 06/17/2016 Comp Metabolic Ffi631 AL K PHOS 55 U/L 06/17/2016 Comp Metabolic Wio687 T(SGOT) 21 U/L 06/17/2016 Comp Metabolic Nbg310 AL T(SGPT) 24 U/L 06/17/2016 Comp Metabolic Xrl388 BI LI T 0.6 mg/dL 06/17/2016 Comp Metabolic Xvp245 AL BUMIN 4.0 g/dL 06/17/2016 Comp Metabolic Jcp140 TP RO 6.2 g/dL 06/17/2016 Comp Metabolic Tbw094 GL OB 2.2 g/dL 06/17/2016 Comp Metabolic Cvt678 A/ G Ratio 1.8 Ratio 06/17/2016 Comp Metabolic Gjq856 Os mo 289 mOsmo 06/17/2016 Lipid Ord30 CHOL 163 mg/dL 06/17/2016 Lipid Ord30 HDL 54.0 mg/dl 06/17/2016 Lipid Ord30 TRIG 133 mg/dL 06/17/2016 Lipid Ord30 LDL 82 mg/dL 06/17/2016 Lipid Ord30 C/HDL 3.0 Ratio 06/17/2016 %Hba1C Wyp273 % HbA1c 65780-4 6.0 % 06/17/2016 %Hba1C Xaq775 Gluc Ave 126 mg/dL 06/17/2016 Total Psa [...] 32.7 pg 06/17/2016 Cbc With Differential Ord2 [place]% 10.7 % 06/17/2016 Cbc With Differential Ord2 [...] 1.71 K/ul 06/17/2016 Cbc With Differential Ord2 [place] ABS# 0.6 K/ul 06/17/2016 Cbc With Differential Ord2 Eos ABS# 0.2 K/ul 06/17/2016 Cbc With Differential Ord2 Baso ABS# 0.0 K/ul 06/17/2016 Tsh Ord6 hTSH II 2.91 uIU/mL 06/17/2016 Tsh Ord6 hTSH II 2.45 uIU/mL 02/19/2016 %Hba1C Lkt879 % HbA1c 84165-6 5.8 % 02/19/2016 %Hba1C Teh271 Gluc Ave 120 mg/dL 02/19/2016 Comp Metabolic Ylg693 NA 141 mEq/L 02/19/2016 Comp Metabolic Akp722 K 4.2 mEq/L 02/19/2016 Comp Metabolic Res896 CL 107 mEq/L 02/19/2016 Comp Metabolic Hzm136 CO2 29.0 mEq/L 02/19/2016 Comp Metabolic Fac957 AN ION GAP 9 02/19/2016 Comp Metabolic Tef982 GL UCOSE 106 mg/dL 02/19/2016 Comp Metabolic Mkd044 Cr eat 0.9 mg/dL 02/19/2016 Comp Metabolic Cql164 eG FR 90 ml/min/1.73m2 02/18 Comp Metabolic Xfu118 BUN 24 mg/dL 02/19/2016 Comp Metabolic Fev094 B/ C Ratio 27.6 Ratio 02/19/2016 Comp Metabolic Kio907 CA LCIUM 9.1 mg/dL 02/19/2016 Comp Metabolic Zvg240 AL K PHOS 67 U/L 02/19/2016 Comp Metabolic Yem396 T(SGOT) 25 U/L 02/19/2016 Comp Metabolic Epm216 AL T(SGPT) 31 U/L 02/19/2016 Comp Metabolic Sfj882 BI LI T 0.6 mg/dL 02/19/2016 Comp Metabolic Znr327 AL BUMIN 4.1 g/dL 02/19/2016 Comp Metabolic Qdj109 TP RO 6.5 g/dL 02/19/2016 Comp Metabolic Zmo718 GL OB 2.4 g/dL 02/19/2016 Comp Metabolic Voa480 A/ G Ratio 1.7 Ratio 02/19/2016 Comp Metabolic Mtw121 Os mo 286 mOsmo 02/19/2016 Cbc With [...] 31.7 pg 02/19/2016 Cbc With Differential Ord2 [place]% 10.5 % 02/19/2016 Cbc With Differential Ord2 [...] 1.59 K/ul 02/19/2016 Cbc With Differential Ord2 [place] ABS# 0.6 K/ul 02/19/2016 Cbc With Differential Ord2 Eos ABS# 0.3 K/ul 02/19/2016 Cbc With Differential Ord2 Baso ABS# 0.0 K/ul 02/19/2016 Lipid Ord30 CHOL 174 mg/dL 02/19/2016 Lipid Ord30 HDL 54.0 mg/dl 02/19/2016 Lipid Ord30 TRIG 110 mg/dL 02/19/2016 Lipid Ord30 LDL 98 mg/dL 02/19/2016 Lipid Ord30 C/HDL 3.2 Ratio 02/19/2016 %Hba1C Hxh887 % HbA1c 83702-5 6.0 % 11/11/2015 %Hba1C Chr552 Gluc Ave 126 mg/dL 11/11/2015 %Hba1C Prx979 % HbA1c 13215-7 6.0 % 11/07/2015 %Hba1C Yhr734 Gluc Ave 126 mg/dL 11/07/2015 Cbc With [...] 32.0 pg 11/06/2015 Cbc With Differential Ord2 [place]% 9.5 % 11/06/2015 Cbc With Differential Ord2 [...] 1.79 K/ul 11/06/2015 Cbc With Differential Ord2 [place] ABS# 0.6 K/ul 11/06/2015 Cbc With Differential Ord2 Eos ABS# 0.3 K/ul 11/06/2015 Cbc With Differential Ord2 Baso ABS# 0.0 K/ul 11/06/2015 Comp Metabolic Qxf964 NA 141 mEq/L 11/06/2015 Comp Metabolic Ueu988 K 4.3 mEq/L 11/06/2015 Comp Metabolic Hgt218 CL 107 mEq/L 11/06/2015 Comp Metabolic Ykv723 CO2 28.0 mEq/L 11/06/2015 Comp Metabolic Ccp520 AN ION GAP 10 11/06/2015 Comp Metabolic Szv486 GL UCOSE 117 mg/dL 11/06/2015 Comp Metabolic Gtq826 Cr eat 0.9 mg/dL 11/06/2015 Comp Metabolic Fcg361 eG FR 88 ml/min/1.73m2 11/05 Comp Metabolic Jes798 BUN 22 mg/dL 11/06/2015 Comp Metabolic Axj735 B/ C Ratio 25.0 Ratio 11/06/2015 Comp Metabolic Kua945 CA LCIUM 9.1 mg/dL 11/06/2015 Comp Metabolic Tbp275 AL K PHOS 59 U/L 11/06/2015 Comp Metabolic Ltp280 T(SGOT) 23 U/L 11/06/2015 Comp Metabolic Ktw892 AL T(SGPT) 26 U/L 11/06/2015 Comp Metabolic Tts013 BI LI T 0.6 mg/dL 11/06/2015 Comp Metabolic Vdi749 AL BUMIN 4.0 g/dL 11/06/2015 Comp Metabolic Mtz420 TP RO 6.4 g/dL 11/06/2015 Comp Metabolic Upo763 GL OB 2.4 g/dL 11/06/2015 Comp Metabolic Peb632 A/ G Ratio 1.7 Ratio 11/06/2015 Comp Metabolic Nbh382 Os mo 286 mOsmo 11/06/2015 Tsh Ord6 hTSH II 2.59 uIU/mL 11/06/2015 Lipid Ord30 CHOL 159 mg/dL 11/06/2015 Lipid Ord30 HDL 42.0 mg/dl 11/06/2015 Lipid Ord30 TRIG 129 mg/dL 11/06/2015 Lipid Ord30 LDL 91 mg/dL 11/06/2015 Lipid Ord30 C/HDL 3.8 Ratio 11/06/2015 Comp Metabolic Rhl834 NA 140 mEq/L 08/08/2015 Comp Metabolic Hop912 K 4.0 mEq/L 08/08/2015 Comp Metabolic Rmz820 CL 108 mEq/L 08/08/2015 Comp Metabolic Kfn153 CO2 25.0 mEq/L 08/08/2015 Comp Metabolic Ifr699 AN ION GAP 11 08/08/2015 Comp Metabolic Wzi724 GL UCOSE 100 mg/dL 08/08/2015 Comp Metabolic Zvq903 Cr eat 0.9 mg/dL 08/08/2015 Comp Metabolic Xda871 eG FR 82 ml/min/1.73m2 08/07 Comp Metabolic Yfx312 BUN 19 mg/dL 08/08/2015 Comp Metabolic Ufk390 B/ C Ratio 20.2 Ratio 08/08/2015 Comp Metabolic Bbm335 CA LCIUM 8.5 mg/dL 08/08/2015 Comp Metabolic Qop174 AL K PHOS 56 U/L 08/08/2015 Comp Metabolic Qir409 T(SGOT) 18 U/L 08/08/2015 Comp Metabolic Tsj691 AL T(SGPT) 17 U/L 08/08/2015 Comp Metabolic Pje633 BI LI T 0.7 mg/dL 08/08/2015 Comp Metabolic Rtl945 AL BUMIN 3.9 g/dL 08/08/2015 Comp Metabolic Crw672 TP RO 6.2 g/dL 08/08/2015 Comp Metabolic Vqp755 GL OB 2.3 g/dL 08/08/2015 Comp Metabolic Zbp401 A/ G Ratio 1.7 Ratio 08/08/2015 Comp Metabolic Poh140 Os mo 282 mOsmo 08/08/2015 Tsh Ord6 hTSH II 3.19 uIU/mL 08/08/2015 %Hba1C Kvs169 % HbA1c 40003-2 5.7 % 08/08/2015 %Hba1C Eyn771 Gluc Ave 117 mg/dL 08/08/2015 Cbc With [...] 31.4 pg 08/08/2015 Cbc With Differential Ord2 [place]% 10.9 % 08/08/2015 Cbc With Differential Ord2 [...] 1.51 K/ul 08/08/2015 Cbc With Differential Ord2 [place] ABS# 0.6 K/ul 08/08/2015 Cbc With Differential Ord2 Eos ABS# 0.2 K/ul 08/08/2015 Cbc With Differential Ord2 Baso ABS# 0.0 K/ul 08/08/2015 Lipid Ord30 CHOL 127 mg/dL 08/08/2015 Lipid Ord30 HDL 34.0 mg/dl 08/08/2015 Lipid Ord30 TRIG 93 mg/dL 08/08/2015 Lipid Ord30 LDL 74 mg/dL 08/08/2015 Lipid Ord30 C/HDL 3.7 Ratio 08/08/2015 Review of Systems System Result Effective Dates Constitutional No recent illness 04/26/2018 Constitutional No [...] CPT-4: J3301 04/26/2018 DRAIN/INJECT JOINT/B URSA CPT-4: 79538 04/26/2018 DRAIN/INJECT JOINT/B URSA CPT-4: 25384 08/25/2017 PPPS, SUBSEQ VISIT CPT- 4: G0439 05/30/2017 ADMIN INFLUENZA VIRU S VAC CPT-4: G0008 12/21/2016 FLU VACC PRSV FREE I NC ANTIG CPT-4: 86972 12/21/2016 PPPS, SUBSEQ VISIT CPT- 4: G0439 05/21/2016 TRIAMCINOLONE ACET I [place] NOS CPT-4: J3301 04/21/2016 THER/PROPH/DIAG INJ SC/IM CPT-4: 59106 04/21/2016 DRAIN/INJECT JOINT/B URSA CPT-4: 41762 11/13/2015 PNEUMOCOCCAL VACC [address]: 04905451 CPT-4: 92303 11/13/2015 ADMIN PNEUMOCOCCAL V ACCINE SNOMED CT: 76372251 CPT-4: G0009 11/13/2015 ADMIN INFLUENZA VIRU S VAC CPT-4: G0008 11/11/2015 FLU VACC 4 AZUL 3 YRS PLUS IM SNOMED CT: 64820919 CPT-4: 93075 11/11/2015 Vital Signs Date Vital 04/26/2018 Blood Pressure 1: 118/56 Code: 8480-6 BMI: 25.5 Code: 01035-8 Heart Rate 1: 60 bpm Height: 5'7" SpO2: 96% Weight: 163 lbs 12/21/2017 Blood Pressure 1: 132/56 Code: 8480-6 BMI: 25.7 Code: 10728-4 Heart Rate 1: 58 bpm Height: 5'7" SpO2: 93% Weight: 164 lbs 08/25/2017 Blood Pressure 1: 126/74 Code: 8480-6 BMI: 26.2 Code: 13476-6 Heart Rate 1: 70 bpm Height: 5'7" SpO2: 94% Weight: 167 lbs 05/30/2017 Blood Pressure 1: 120/66 Code: 8480-6 BMI: 26.6 Code: 02198-9 Heart Rate 1: 66 bpm Height: 5'7" SpO2: 95% Waist Measure (cm): 97 cm Weight: 170 lbs 04/20/2017 Blood Pressure 1: 138/78 Code: 8480-6 BMI: 26.6 Code: 65736-4 Heart Rate 1: 86 bpm Height: 5'7" SpO2: 96% Weight: 170 lbs 01/21/2017 Blood Pressure 1: 136/70 Code: 8480-6 BMI: 26.3 Code: 85834-9 Heart Rate 1: 79 bpm Height: 5'7" SpO2: 95% Weight: 168 lbs 10/22/2016 Blood Pressure 1: 134/72 Code: 8480-6 BMI: 26.3 Code: 56963-4 Heart Rate 1: 70 bpm Height: 5'7" SpO2: 95% Weight: 168 lbs 10/04/2016 Blood Pressure 1: 142/80 Code: 8480-6 BMI: 26.6 Code: 26218-5 Heart Rate 1: 72 bpm Height: 5'7" SpO2: 93% Weight: 170 lbs 06/18/2016 Blood Pressure 1: 132/76 Code: 8480-6 BMI: 26.2 Code: 02595-2 Heart Rate 1: 65 bpm Height: 5'7" SpO2: 95% Weight: 167 lbs 8 oz 05/21/2016 Blood Pressure 1: 126/76 Code: 8480-6 BMI: 26.0 Code: 36925-1 Heart Rate 1: 72 bpm Height: 5'7" SpO2: 98% Weight: 166 lbs 04/29/2016 Blood Pressure 1: 128/70 Code: 8480-6 BMI: 25.7 Code: 98096-8 Heart Rate 1: 67 bpm Height: 5'7" SpO2: 97% Temperature: 36.3 (C ) / 97.4 (F) Weight: 164 lbs 04/21/2016 Blood Pressure 1: 130/62 Code: 8480-6 BMI: 26.3 Code: 28419-5 Heart Rate 1: 74 bpm Height: 5'7" SpO2: 96% Temperature: 37.0 (C ) / 98.6 (F) Weight: 168 lbs 02/20/2016 Blood Pressure 1: 120/64 Code: 8480-6 BMI: 26.2 Code: 13469-8 Heart Rate 1: 65 bpm Height: 5'7" SpO2: 94% Weight: 167 lbs 01/01/2016 Blood Pressure 1: 106/60 Code: 8480-6 BMI: 25.7 Code: 49058-2 Heart Rate 1: 73 bpm Height: 5'7" SpO2: 98% Weight: 164 lbs 11/13/2015 Blood Pressure 1: 122/86 Code: 8480-6 BMI: 25.8 Code: 96278-2 Heart Rate 1: 80 bpm Height: 5'7" SpO2: 92% Weight: 165 lbs 11/07/2015 Blood Pressure 1: 118/64 Code: 8480-6 BMI: 25.8 Code: 44534-7 Heart Rate 1: 66 bpm Height: 5'7" SpO2: 95% Weight: 165 lbs 08/07/2015 Blood Pressure 1: 122/80 Code: 8480-6 BMI: 24.4 Code: 85061-6 Heart Rate 1: 74 bpm Height: 5'7" SpO2: 94% Weight: 156 lbs Functional Status No Functional Status data History of Present Illness Symptom Name Status Resu lt Effective Date Notes Quality chronic 04/26/2018 None Quality worsening 04/26/2018 [...] Encounters Encounter Performer Loca tion Codes Date 12253 EST. PATIENT, LEVEL III Diagnosis: Essential (primary) hypertension[ICD10: I10] Diagnosis: Pain in right knee[ICD10: M25.561] Diagnosis: Pain in left shoulder[ICD10: M25.512] Lakeisha Hoskins MD, [facility] CPT- 4: 61061 04/26/2018 [address]15 EST. PATIENT, LEVEL IV Diagnosis: Type 2 diabetes mellitus without complications[ICD10: E11.9] Diagnosis: Essential (primary) hypertension[ICD10: I10] Diagnosis: Pain in right knee[ICD10: M25.561] Lakeisha Hoskins MD, [facility] CPT-4: 98052 12/21/2017 17953 EST. PATIENT, LEVEL IV Diagnosis: Type 2 diabetes mellitus without complications[ICD10: E11.9] Diagnosis: Essential (primary) hypertension[ICD10: I10] Diagnosis: Pain in right knee[ICD10: M25.561] Lakeisha Hoskins MD, [facility] CPT-4: 42436 08/25/2017 87748 EST. PATIENT, LEVEL IV Diagnosis: Type 2 diabetes mellitus without complications[ICD10: E11.9] Diagnosis: Essential (primary) hypertension[ICD10: I10] Lakeisha Hoskins MD, [facility] CPT-4: 78400 04/20/2017 ([id number]) 05382 EST. P ATIENT, LEVEL III Diagnosis: Essential (primary) hypertension[ICD10: I10] Diagnosis: Obstructive sleep apnea (adult) (pediatric)[ICD10: G47.33] Nancy Hoskins MD, [facility] CPT-4: 49616 01/21/2017 ([id number]) 24950 EST. P ATIENT, LEVEL IV Diagnosis: Essential (primary) hypertension[ICD10: I10] Diagnosis: Type 2 diabetes mellitus without complications[ICD10: E11.9] Diagnosis: Obstructive sleep apnea (adult) (pediatric)[ICD10: G47.33] Nancy Hoskins MD, [facility] CPT-4: 33120 10/22/2016 ([id number]) 06551 EST. P ATIENT, LEVEL III Diagnosis: Localized edema[ICD10: R60.0] Diagnosis: Rash and other nonspecific skin eruption[ICD10: R21] Nancy Hoskins MD, [facility] CPT-4: 39474 10/04/2016 ([id number]) 53262 EST. P ATIENT, LEVEL IV Diagnosis: Essential (primary) hypertension[ICD10: I10] Diagnosis: Type 2 diabetes mellitus without complications[ICD10: E11.9] Diagnosis: Mixed hyperlipidemia[ICD10: E78.2] Nancy Hoskins MD, [facility] CPT-4: 16588 06/18/2016 ([id number]) 54595 EST. P ATIENT, LEVEL III Diagnosis: Cough[ICD10: R05] Diagnosis: Acute bronchitis, unspecified[ICD10: J20.9] Nancy Hoskins MD, [facility] CPT-4: 30777 04/29/2016 21163 EST. PATIENT, LEVEL IV Diagnosis: Other acute sinusitis[ICD10: J01.80] Diagnosis: Other allergic rhinitis[ICD10: J30.89] Lakeisha Hoskins MD, [facility] CPT-4: 03327 04/21/2016 ([id number]) 34335 EST. P ATIENT, LEVEL IV Diagnosis: Essential (primary) hypertension[ICD10: I10] Diagnosis: Type 2 diabetes mellitus without complications[ICD10: E11.9] Diagnosis: Mixed hyperlipidemia[ICD10: E78.2] Diagnosis: Primary generalized (osteo)arthritis[ICD10: M15.0] Nancy Hoskins MD, [facility] CPT-4: 54648 02/20/2016 ([id number]) 44429 EST. P ATIENT, LEVEL IV Diagnosis: Cough[ICD10: R05] Diagnosis: Acute bronchitis due to Hemophilus influenzae[ICD10: J20.1] Diagnosis: Type 2 diabetes mellitus without complications[ICD10: E11.9] Diagnosis: Essential (primary) hypertension[ICD10: I10] Charlene Hoskins MD, [facility] CPT-4: 40597 01/01/2016 ([id number]) 52944 EST. P ATIENT, LEVEL IV Diagnosis: Essential (primary) hypertension[ICD10: I10] Diagnosis: Mixed hyperlipidemia[ICD10: E78.2] Diagnosis: Type 2 diabetes mellitus without complications[ICD10: E11.9] Nancy Hoskins MD, [facility] CPT-4: 56330 11/07/2015 OFFICE VISIT, NEW - LEVEL 4 Diagnosis: Type 2 diabetes mellitus without complications[ICD10: E11.9] Diagnosis: Essential (primary) hypertension[ICD10: I10] Diagnosis: Mixed hyperlipidemia[ICD10: E78.2] Diagnosis: Elevated prostate specific antigen [PSA][ICD10: R97.2] Nancy Hoskins MD, [facility] CPT-4: 96872 08/07/2015 Plan of Care Planned Activity Notes [...] of injection. 04/26/2018 App[facility]ment[phone] ([facility] min) Complex 04/26/2018 Patient Education: [...] not improve. 12/21/2017 Appointment: [phone] [facility] (15 min) Moderate 12/21/2017 Patient Education: [...] Lakeisha Putnam WPtel: [facility] (15 min) Moderate 08/25/2017 Patient Education: Patient [...] Lakeisha Putnam WPtel: [facility] [facility] - Annual Wellness Visit 05/27/2017 Appointment: Nancy Tavares WPtel: [address] [place] [address] [place] [address] (30 min) Complex 04/22/2017 Visit Plan: Hypertension [...] controlled. 04/20/2017 Appointment: [facility] Putnam [facility] [phone] [facility] (30 min) Complex 04/20/2017 Patient Education: [...] improved sleep, etc. Will fax note to [facility]. 01/21/2017 Appointment: [facility] [phone] [phone] (30 min) Complex 01/21/2017 Appointment: [facility] [phone] [phone] (30 min) Complex 01/21/2017 Patient Education: [...] doing well-due for a new machine-will call [facility] to see what we need to do to get him a new machine. 10/22/2016 Appointment: Nancy Tavares WPtel: [phone] [phone] [place] (30 min) Complex 10/22/2016 Patient Education: Patient [...] of plan. 10/04/2016 Appointment: Nancy Tavares WPtel: [phone] [place] (15 min) Moderate 10/04/2016 Patient Education: Patient [...] me dications. 06/18/2016 Appointment: Nancy Tavares WPtel: [address] [place], [place] [phone] [place] (15 min) Moderate 06/18/2016 Patient Education: Patient [...] worsen. 04/29/2016 Appointment: Nancy Tavares WPtel: [address] [place], [place] [phone] (15 min) Moderate 04/29/2016 Patient Education: Patient Medication Summary Completed 04/29/2016 Care Plan: CHEST X-RAY 2VW FRONTAL&LATL LOINC : [id number] Pending 04/29/2016 Visit Plan: Sinusitis - Pt [...] allergy spray. 04/21/2016 Appointment: Lakeisha Putnam WPtel: [address] [place], [place] [address] (15 min) Moderate 04/21/2016 Patient Education: Patient [...] provided 02/20/2016 Appointment: [facility]el[facility] [phone] [phone] (30 min) Complex 02/20/2016 Patient Education: [...] controlled. 01/01/2016 Appointment: [phone] (15 min) Moderate 01/01/2016 Patient Education: Patient [...] injection. 11/13/2015 Appointment: Nancy Tavares WPtel: [phone] [phone] (15 min) Moderate 11/13/2015 Patient Education: Patient [...] response to medications. DM-too early for Hgb [id number] to have done next week 11/07/2015 Appointment: Nancy Tavares WPtel: [phone] [phone] (15 min) Moderate 11/07/2015 Patient Education: Patient [...] results 08/07/2015 Appointment: [facility] [phone] [phone] [place] New Patient 08/07/2015 Patient Education: [...] improved sleep, etc. Will fax note to [facility]. . 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 Edema - [...] doing well-due for a new machine-will call [facility] to see what we need [...] response to medications. DM-too early for Hgb [id number] to have done next week
--- OUTSIDE RECORDS SUMMARY | 2019-04-11 03:39 | XMS REPORT | CCD ---
Author Author Cesar Tavares Organization Charlene Hoskins MD, [facility] Address [address] [place] [address] Phone Care Team Providers Care Chief Optometry Service Name Role Phone PP Unavailable CCM Unavailable Summary Purpose Interface Exchange Insurance Providers Payer name Policy type / Coverage type Covered libertarian ID Effective Begin Date Effective End Date WPS Medicare Part B Medicare Part B [id number] Unknown [facility] Part B [id number] Un known Family history Brother Diagnosis Age [...] Retir ed 08/07/[address]: 2444966 Quit over 10 years ago 1970 08/07/[address]: 331770143 Never drinks alcohol 08/07/2015 Allergies, Adverse Reactions, [...] Start Date Stop Date Sta Fill Instructions simvastatin 20 mg ta blet RxNorm: 856397 TAKE 1 TABLET BY MOUT H ONCE DAILY 05/16/2018 No Stop Date Active Kenalog 40 mg/mL maggie pension for injection RxNorm: 3177494 1 Milliliter(s) Inj 04/26/2018 04/26/2018 In active Kenalog 40 mg/mL maggie pension for injection RxNorm: 0757711 1 Milliliter(s) Inj 04/26/2018 04/26/2018 In active losartan 50 mg tablet RxNorm: 589855 TAKE 1 TABLET BY MOUTH ONCE DAILY 04/24/2018 No Stop Date Active fluticasone 50 mcg/a ctuation nasal spray,suspension RxNorm: 2096090 USE 2 SPRAY(S) IN EACH NOSTRIL ONCE DAILY 03/27/2018 No Stop Date Active Advair Diskus 250 mc g-50 mcg/dose powder for inhalation RxNorm: 4935074 INHALE 1 DOSE BY MOUTH TWICE DAILY 03/21/2018 No Stop Date Active montelukast 10 mg ta blet RxNorm: 164720 TAKE ONE TABLET BY MO UTH ONCE DAILY 03/15/2018 No Stop Date Active Advair Diskus 250 mc g-50 mcg/dose powder for inhalation RxNorm: 5742315 INHALE 1 DOSE BY MOUTH TWICE DAILY 02/20/2018 03/20/2018 Inactive fluticasone 50 mcg/a ctuation nasal spray,suspension RxNorm: 1386153 USE 2 SPRAY(S) IN EACH NOSTRIL ONCE DAILY 02/08/2018 03/26/2018 Inactive metformin 500 mg tablet RxNorm: 490080 TAKE 1 TABLET BY MOUTH ONCE DAILY 01/16/2018 No Stop Date Active Advair Diskus 250 mc g-50 mcg/dose powder for inhalation RxNorm: 4261141 INHALE 1 DOSE BY MOUTH TWICE DAILY 12/19/2017 02/19/2018 Inactive meloxicam 7.5 mg tablet RxNorm: 234276 TAKE 1 TABLET BY MOUTH ONCE DAILY 12/01/2017 No Stop Date Active simvastatin 20 mg ta blet RxNorm: 574640 TAKE 1 TABLET BY MOUT H ONCE DAILY 11/14/2017 05/15/2018 In active losartan 50 mg tablet RxNorm: 813285 TAKE ONE TABLET BY MOUTH ONCE DAILY 10/27/2017 04/23/2018 In active Advair Diskus 250 mc g-50 mcg/dose powder for inhalation RxNorm: 1073600 INHALE 1 DOSE BY MOUTH TWICE DAILY 10/19/2017 12/18/2017 Inactive fluticasone 50 mcg/a ctuation nasal spray,suspension RxNorm: 6090023 USE TWO SPRAY(S) IN EACH NOSTRIL ONCE DAILY 10/19/2017 02/07/2018 Inactive Kenalog 40 mg/mL maggie pension for injection RxNorm: 0278421 1 Milliliter(s) Inj 08/25/2017 08/25/2017 In active meloxicam 7.5 mg tablet RxNorm: 685955 TAKE ONE TABLET BY MOUTH ONCE DAILY 06/06/2017 11/30/2017 In active simvastatin 20 mg ta blet RxNorm: 618925 TAKE ONE TABLET BY MO UTH ONCE DAILY 05/17/2017 11/13/2017 In active metformin 500 mg tablet RxNorm: 693085 TAKE ONE TABLET BY MOUTH ONCE DAILY 05/05/2017 01/15/2018 In active Advair Diskus 250 mc g-50 mcg/dose powder for inhalation RxNorm: 9641787 INHALE ONE DOSE BY MOUTH TWICE DAILY 04/19/2017 10/18/2017 Inactive Tamiflu 75 mg capsule RxNorm: 145736 1 Capsule(s) PO daily 03/25/2017 03/24/2017 Inactive Tamiflu 75 mg capsule RxNorm: 903531 1 Capsule(s) PO daily 03/25/2017 03/31/2017 Inactive montelukast 10 mg ta blet RxNorm: 960952 TAKE ONE TABLET BY MO UTH ONCE DAILY 03/21/2017 03/14/2018 In active losartan 50 mg tablet RxNorm: 807861 TAKE ONE TABLET BY MOUTH ONCE DAILY 01/27/2017 10/26/2017 In active fluticasone 50 mcg/a ctuation nasal spray,suspension RxNorm: 9372207 USE TWO SPRAY(S) IN EACH NOSTRIL ONCE DAILY 01/17/2017 10/18/2017 Inactive meloxicam 7.5 mg tablet RxNorm: 872606 TAKE ONE TABLET BY MOUTH ONCE DAILY 12/06/2016 06/03/2017 In active metformin 500 mg tablet RxNorm: 783022 Tablet(s) TAKE ONE TABLET BY MOUTH TWICE DAILY 11/30/2016 11/24/2017 Inactive simvastatin 20 mg ta blet RxNorm: 526656 TAKE ONE TABLET BY MO UTH ONCE DAILY 11/15/2016 05/13/2017 In active Advair Diskus 250 mc g-50 mcg/dose powder for inhalation RxNorm: 1721383 INHALE ONE PUFF BY MOUTH TWICE DAILY 10/22/2016 04/18/2017 Inactive ketoconazole 2 % [facility] RxNorm: 716115 1 Application TOP TIW 10/04/2016 10/17/2016 Inactive fluticasone 50 mcg/a ctuation nasal spray,suspension RxNorm: 9489783 USE TWO SPRAY(S) IN EACH NOSTRIL ONCE DAILY 09/21/2016 11/19/2016 Inactive montelukast 10 mg ta blet RxNorm: 822439 TAKE ONE TABLET BY MO UTH ONCE DAILY 09/21/2016 03/19/2017 In active losartan 50 mg tablet RxNorm: 295500 TAKE ONE TABLET BY MOUTH ONCE DAILY 08/02/2016 01/26/2017 In active metformin 500 mg tablet RxNorm: 099362 TAKE ONE TABLET BY MOUTH TWICE DAILY 07/22/2016 10/19/2016 In active furosemide 20 mg tablet RxNorm: 429353 1 Tablet(s) PO daily as needed for swell ing 07/21/2016 04/18/2018 Inactive meloxicam 7.5 mg tablet RxNorm: 324872 TAKE ONE TABLET BY MOUTH ONCE DAILY 06/08/2016 12/04/2016 In active cefdinir 300 mg capsule RxNorm: 282894 1 Capsule(s) PO BID 04/29/2016 05/05/2016 Inactive prednisone 20 mg tablet RxNorm: 750209 1 Tablet(s) PO BID 04/29/2016 05/03/2016 Inactive Zithromax Z-Sherif 250 mg tablet RxNorm: 268477 1 Tablet(s) PO UD 04/21/2016 04/28/2016 Inactive Kenalog 40 mg/mL maggie pension for injection RxNorm: 3578989 1 Milliliter(s) Inj 04/21/2016 04/21/2016 In active montelukast 10 mg ta blet RxNorm: 863017 TAKE ONE TABLET BY MO UT ONCE DAILY 03/22/2016 09/17/2016 In active fluticasone 50 mcg/a ctuation nasal spray,suspension RxNorm: 6196787 2 [place] NASAL daily each nare 03/15/2016 07/12/2016 Inactive qs metformin 500 mg tablet RxNorm: 341460 1 Tablet(s) PO daily 01/16/2016 2016 Inactive Patient does not need a refill- just upd ate dosing Advair Diskus 250 mc g-50 mcg/dose powder for inhalation RxNorm: 9199383 1 INH BID 01/01/2016 04/29/2016 In active Advair Diskus 250 mc g-50 mcg/dose powder for inhalation RxNorm: 7100440 1 INH daily 01/01/2016 12/31/2015 Inactive metformin 500 mg tablet RxNorm: 930892 1 Tablet(s) PO daily 01/01/2016 01/15/2016 Inactive simvastatin 40 mg ta blet RxNorm: 481132 1 Tablet(s) PO daily 01/01/2016 04/17/2018 Inactive azithromycin 250 mg tablet RxNorm: 609486 1 Tablet(s) PO take t wo pills on day #1, then one pill daily x 4 more days 01/01/2016 02/17/2016 Inactive meloxicam 7.5 mg tablet RxNorm: 732910 1 Tablet(s) PO daily 12/11/2015 06/07/2016 Inactive simvastatin 20 mg ta blet RxNorm: 982435 1 Tablet(s) PO daily 11/21/2015 12/31/2015 Inactive metformin 500 mg tablet RxNorm: 620487 1 Tablet(s) PO BID 11/21/2015 12/31/2015 Inactive Advair Diskus 250 mc g-50 mcg/dose powder for inhalation RxNorm: 6237353 1 INH BID 11/21/2015 12/31/2015 In active montelukast 10 mg ta blet RxNorm: 876293 1 Tablet(s) PO daily 09/25/2015 03/21/2016 Inactive losartan 50 mg tablet RxNorm: 308790 1 Tablet(s) PO daily 09/04/2015 08/01/2016 Inactive Restasis 0.05 % eye drops in a dropperette RxNorm: 225649 1 gtts OPH BID 08/07/2015 No Stop Date Active meloxicam 7.5 mg tablet RxNorm: 484441 1 Tablet(s) PO daily 08/07/2015 09/05/2015 Inactive Kay oral RxNorm: 777689 oral No Start Date Active finasteride 5 mg tablet RxNorm: 185863 1 Tablet(s) PO daily No Start Date Active Zyrtec 10 mg tablet RxNorm: 8529155 1 Tablet(s) PO daily No Start Date Active Co Q-10 200 mg capsule RxNorm: 270812 1 Capsule(s) PO daily No Start Date Active Calcium 500 + D (D3) oral RxNorm: 120362 oral No S tart Date Active simethicone 125 mg c apsule RxNorm: 956797 Capsule(s) PO as needed No Start Date Active Vitamin D3 1,000 uni t tablet RxNorm: 911205 1 Tablet(s) PO daily No Start Date Active omega-3 fatty acids 1,000 mg capsule RxNorm: 4 Capsule(s) PO daily No Start Date Active triamcinolone aceton chasity 0.1 % topical cream RxNorm: 5669309 1 TOP UD No Start Date Active fluticasone 50 mcg/a ctuation nasal spray,suspension RxNorm: 8011540 2 [place] NASAL daily each nare No Start Date 03/14/2016 Inactive losartan 50 mg tablet RxNorm: 264551 1 Tablet(s) PO daily No Start Date 09/03/2015 Inactive metformin 500 mg tablet RxNorm: 701756 1 Tablet(s) PO daily No Start Date 11/20/2015 Inactive simvastatin 40 mg ta blet RxNorm: 520742 1 Tablet(s) PO daily No Start Date 11/20/2015 Inactive furosemide 20 mg tablet RxNorm: 959089 1 Tablet(s) PO daily as needed No Start Date 07/20/2016 Inactive Advair Diskus 250 mc g-50 mcg/dose powder for inhalation RxNorm: 2137973 1 INH daily No Start Date 11/20/2015 Inactive Multiple Vitamin oral RxNorm: 30140 oral No Start Date 12/31/2015 Inactive montelukast 10 mg ta blet RxNorm: 190773 1 Tablet(s) PO daily No Start Date 09/24/2015 Inactive Medication Administered Medication Codes Instruc tions Start Date Status Kenalog 40 mg/mL suspension for injection RxNorm: 7680358 1Milliliter 04/26/2018 N o longer Active Kenalog 40 mg/mL suspension for injection RxNorm: 2472209 1Milliliter 04/26/2018 N o longer Active Kenalog 40 mg/mL suspension for injection RxNorm: 5441887 1Milliliter 08/25/2017 N o longer Active Kenalog 40 mg/mL suspension for injection RxNorm: 5323184 1Milliliter 04/21/2016 N o longer Active Immunizations [...] Code Item Item Code Result Date %Hba1C Qos676 % HbA1c 60304-4 6.0 % 12/21/2017 %Hba1C Njs664 Gluc Ave 126 mg/dL 12/21/2017 %Hba1C Bhe056 % HbA1c 67644-2 6.2 % 04/20/2017 %Hba1C Tci900 Gluc Ave 131 mg/dL 04/20/2017 Cbc With [...] 31.8 pg 04/20/2017 Cbc With Differential Ord2 Cotton% 9.3 % 04/20/2017 Cbc With Differential Ord2 [...] 1.82 K/ul 04/20/2017 Cbc With Differential Ord2 Cotton ABS# 0.6 K/ul 04/20/2017 Cbc With Differential Ord2 Eos ABS# 0.2 K/ul 04/20/2017 Cbc With Differential Ord2 Baso ABS# 0.0 K/ul 04/20/2017 Comp Metabolic Vub192 NA 141 mEq/L 04/20/2017 Comp Metabolic Rwg056 K 4.5 mEq/L 04/20/2017 Comp Metabolic Hoi436 CL 106 mEq/L 04/20/2017 Comp Metabolic Kgq736 CO2 27.0 mEq/L 04/20/2017 Comp Metabolic Ilu803 AN ION GAP 13 04/20/2017 Comp Metabolic Jtb864 GL UCOSE 109 mg/dL 04/20/2017 Comp Metabolic Zgv739 Cr eat 1.0 mg/dL 04/20/2017 Comp Metabolic Bab388 eG FR 81 ml/min/1.73m2 04/20 Comp Metabolic Lyi115 BUN 23 mg/dL 04/20/2017 Comp Metabolic Lvc887 B/ C Ratio 24.2 Ratio 04/20/2017 Comp Metabolic Ccz396 CA LCIUM 9.3 mg/dL 04/20/2017 Comp Metabolic Ecg647 AL K PHOS 82 U/L 04/20/2017 Comp Metabolic Ynf255 T(SGOT) 22 U/L 04/20/2017 Comp Metabolic Wzi358 AL T(SGPT) 24 U/L 04/20/2017 Comp Metabolic His161 BI LI T 0.4 mg/dL 04/20/2017 Comp Metabolic Wtg547 AL BUMIN 4.3 g/dL 04/20/2017 Comp Metabolic Brg677 TP RO 6.8 g/dL 04/20/2017 Comp Metabolic Bes203 GL OB 2.5 g/dL 04/20/2017 Comp Metabolic Iqe575 A/ G Ratio 1.7 Ratio 04/20/2017 Comp Metabolic Lfx941 Os mo 286 mOsmo 04/20/2017 %Hba1C Aqp300 % HbA1c 56755-5 5.8 % 10/22/2016 %Hba1C Tir075 Gluc Ave 120 mg/dL 10/22/2016 Cbc With [...] 32.5 pg 10/22/2016 Cbc With Differential Ord2 Cotton% 10.3 % 10/22/2016 Cbc With Differential Ord2 [...] 1.85 K/ul 10/22/2016 Cbc With Differential Ord2 Cotton ABS# 0.8 K/ul 10/22/2016 Cbc With Differential Ord2 Eos ABS# 0.3 K/ul 10/22/2016 Cbc With Differential Ord2 Baso ABS# 0.0 K/ul 10/22/2016 Comp Metabolic Int044 NA 141 mEq/L 10/22/2016 Comp Metabolic Gzc007 K 4.4 mEq/L 10/22/2016 Comp Metabolic Nri246 CL 105 mEq/L 10/22/2016 Comp Metabolic Rok742 CO2 27.0 mEq/L 10/22/2016 Comp Metabolic Dae981 AN ION GAP 13 10/22/2016 Comp Metabolic Exz370 GL UCOSE 103 mg/dL 10/22/2016 Comp Metabolic Fyz243 Cr eat 1.0 mg/dL 10/22/2016 Comp Metabolic Rcy186 eG FR 76 ml/min/1.73m2 10/22 Comp Metabolic Wlv015 BUN 27 mg/dL 10/22/2016 Comp Metabolic Esf712 B/ C Ratio 27.0 Ratio 10/22/2016 Comp Metabolic Yob836 CA LCIUM 9.3 mg/dL 10/22/2016 Comp Metabolic Cow098 AL K PHOS 72 U/L 10/22/2016 Comp Metabolic Vjj353 T(SGOT) 23 U/L 10/22/2016 Comp Metabolic Kag798 AL T(SGPT) 26 U/L 10/22/2016 Comp Metabolic Hlc353 BI LI T 0.4 mg/dL 10/22/2016 Comp Metabolic Uzh428 AL BUMIN 4.2 g/dL 10/22/2016 Comp Metabolic Vlg692 TP RO 6.7 g/dL 10/22/2016 Comp Metabolic Rpa409 GL OB 2.5 g/dL 10/22/2016 Comp Metabolic Noz047 A/ G Ratio 1.6 Ratio 10/22/2016 Comp Metabolic Wfm680 Os mo 287 mOsmo 10/22/2016 Comp Metabolic Cja425 NA 143 mEq/L 06/17/2016 Comp Metabolic Pkr394 K 4.1 mEq/L 06/17/2016 Comp Metabolic Ngh106 CL 108 mEq/L 06/17/2016 Comp Metabolic Ecr526 CO2 28.0 mEq/L 06/17/2016 Comp Metabolic Ylq318 AN ION GAP 11 06/17/2016 Comp Metabolic Hve924 GL UCOSE 106 mg/dL 06/17/2016 Comp Metabolic Jew755 Cr eat 0.9 mg/dL 06/17/2016 Comp Metabolic Mdv799 eG FR 92 ml/min/1.73m2 06/17 Comp Metabolic Wzv949 BUN 22 mg/dL 06/17/2016 Comp Metabolic Aqh724 B/ C Ratio 25.9 Ratio 06/17/2016 Comp Metabolic Hgg814 CA LCIUM 8.8 mg/dL 06/17/2016 Comp Metabolic Bbv742 AL K PHOS 55 U/L 06/17/2016 Comp Metabolic Gyu167 T(SGOT) 21 U/L 06/17/2016 Comp Metabolic Lfq402 AL T(SGPT) 24 U/L 06/17/2016 Comp Metabolic Omr710 BI LI T 0.6 mg/dL 06/17/2016 Comp Metabolic Nag030 AL BUMIN 4.0 g/dL 06/17/2016 Comp Metabolic Etk296 TP RO 6.2 g/dL 06/17/2016 Comp Metabolic Fqx572 GL OB 2.2 g/dL 06/17/2016 Comp Metabolic Qqw862 A/ G Ratio 1.8 Ratio 06/17/2016 Comp Metabolic Zve616 Os mo 289 mOsmo 06/17/2016 Lipid Ord30 CHOL 163 mg/dL 06/17/2016 Lipid Ord30 HDL 54.0 mg/dl 06/17/2016 Lipid Ord30 TRIG 133 mg/dL 06/17/2016 Lipid Ord30 LDL 82 mg/dL 06/17/2016 Lipid Ord30 C/HDL 3.0 Ratio 06/17/2016 %Hba1C Wgb080 % HbA1c 46384-2 6.0 % 06/17/2016 %Hba1C Bql035 Gluc Ave 126 mg/dL 06/17/2016 Total Psa [...] 32.7 pg 06/17/2016 Cbc With Differential Ord2 Cotton% 10.7 % 06/17/2016 Cbc With Differential Ord2 [...] 1.71 K/ul 06/17/2016 Cbc With Differential Ord2 Cotton ABS# 0.6 K/ul 06/17/2016 Cbc With Differential Ord2 Eos ABS# 0.2 K/ul 06/17/2016 Cbc With Differential Ord2 Baso ABS# 0.0 K/ul 06/17/2016 Tsh Ord6 hTSH II 2.91 uIU/mL 06/17/2016 Tsh Ord6 hTSH II 2.45 uIU/mL 02/19/2016 %Hba1C Icm843 % HbA1c 24223-0 5.8 % 02/19/2016 %Hba1C Guj405 Gluc Ave 120 mg/dL 02/19/2016 Comp Metabolic Bqf112 NA 141 mEq/L 02/19/2016 Comp Metabolic Wnw520 K 4.2 mEq/L 02/19/2016 Comp Metabolic Gbw313 CL 107 mEq/L 02/19/2016 Comp Metabolic Kcc728 CO2 29.0 mEq/L 02/19/2016 Comp Metabolic Xhf069 AN ION GAP 9 02/19/2016 Comp Metabolic Aiz076 GL UCOSE 106 mg/dL 02/19/2016 Comp Metabolic Nge608 Cr eat 0.9 mg/dL 02/19/2016 Comp Metabolic Ttr945 eG FR 90 ml/min/1.73m2 02/18 Comp Metabolic Wsv506 BUN 24 mg/dL 02/19/2016 Comp Metabolic Vrq630 B/ C Ratio 27.6 Ratio 02/19/2016 Comp Metabolic Xof011 CA LCIUM 9.1 mg/dL 02/19/2016 Comp Metabolic Fgk976 AL K PHOS 67 U/L 02/19/2016 Comp Metabolic Awz554 T(SGOT) 25 U/L 02/19/2016 Comp Metabolic Hsy462 AL T(SGPT) 31 U/L 02/19/2016 Comp Metabolic Ouz134 BI LI T 0.6 mg/dL 02/19/2016 Comp Metabolic Nvo976 AL BUMIN 4.1 g/dL 02/19/2016 Comp Metabolic Izs972 TP RO 6.5 g/dL 02/19/2016 Comp Metabolic Ila404 GL OB 2.4 g/dL 02/19/2016 Comp Metabolic Vvd903 A/ G Ratio 1.7 Ratio 02/19/2016 Comp Metabolic Jgc221 Os mo 286 mOsmo 02/19/2016 Cbc With [...] 31.7 pg 02/19/2016 Cbc With Differential Ord2 Cotton% 10.5 % 02/19/2016 Cbc With Differential Ord2 [...] 1.59 K/ul 02/19/2016 Cbc With Differential Ord2 Cotton ABS# 0.6 K/ul 02/19/2016 Cbc With Differential Ord2 Eos ABS# 0.3 K/ul 02/19/2016 Cbc With Differential Ord2 Baso ABS# 0.0 K/ul 02/19/2016 Lipid Ord30 CHOL 174 mg/dL 02/19/2016 Lipid Ord30 HDL 54.0 mg/dl 02/19/2016 Lipid Ord30 TRIG 110 mg/dL 02/19/2016 Lipid Ord30 LDL 98 mg/dL 02/19/2016 Lipid Ord30 C/HDL 3.2 Ratio 02/19/2016 %Hba1C Hvd317 % HbA1c 63585-2 6.0 % 11/11/2015 %Hba1C Sgl659 Gluc Ave 126 mg/dL 11/11/2015 %Hba1C Xkp888 % HbA1c 21701-6 6.0 % 11/07/2015 %Hba1C Qah752 Gluc Ave 126 mg/dL 11/07/2015 Cbc With [...] 32.0 pg 11/06/2015 Cbc With Differential Ord2 Cotton% 9.5 % 11/06/2015 Cbc With Differential Ord2 [...] 1.79 K/ul 11/06/2015 Cbc With Differential Ord2 Cotton ABS# 0.6 K/ul 11/06/2015 Cbc With Differential Ord2 Eos ABS# 0.3 K/ul 11/06/2015 Cbc With Differential Ord2 Baso ABS# 0.0 K/ul 11/06/2015 Comp Metabolic Dql152 NA 141 mEq/L 11/06/2015 Comp Metabolic Eay893 K 4.3 mEq/L 11/06/2015 Comp Metabolic Vpk940 CL 107 mEq/L 11/06/2015 Comp Metabolic Sox774 CO2 28.0 mEq/L 11/06/2015 Comp Metabolic Xyz812 AN ION GAP 10 11/06/2015 Comp Metabolic Via717 GL UCOSE 117 mg/dL 11/06/2015 Comp Metabolic Fch873 Cr eat 0.9 mg/dL 11/06/2015 Comp Metabolic Rff646 eG FR 88 ml/min/1.73m2 11/05 Comp Metabolic Tdu460 BUN 22 mg/dL 11/06/2015 Comp Metabolic Gxx601 B/ C Ratio 25.0 Ratio 11/06/2015 Comp Metabolic Txl465 CA LCIUM 9.1 mg/dL 11/06/2015 Comp Metabolic Ztr053 AL K PHOS 59 U/L 11/06/2015 Comp Metabolic Fcm224 T(SGOT) 23 U/L 11/06/2015 Comp Metabolic Rqb815 AL T(SGPT) 26 U/L 11/06/2015 Comp Metabolic Kmq506 BI LI T 0.6 mg/dL 11/06/2015 Comp Metabolic Zvb582 AL BUMIN 4.0 g/dL 11/06/2015 Comp Metabolic Tgs521 TP RO 6.4 g/dL 11/06/2015 Comp Metabolic Yqd161 GL OB 2.4 g/dL 11/06/2015 Comp Metabolic Wpq475 A/ G Ratio 1.7 Ratio 11/06/2015 Comp Metabolic Ttw562 Os mo 286 mOsmo 11/06/2015 Tsh Ord6 hTSH II 2.59 uIU/mL 11/06/2015 Lipid Ord30 CHOL 159 mg/dL 11/06/2015 Lipid Ord30 HDL 42.0 mg/dl 11/06/2015 Lipid Ord30 TRIG 129 mg/dL 11/06/2015 Lipid Ord30 LDL 91 mg/dL 11/06/2015 Lipid Ord30 C/HDL 3.8 Ratio 11/06/2015 Comp Metabolic Zqs661 NA 140 mEq/L 08/08/2015 Comp Metabolic Guf943 K 4.0 mEq/L 08/08/2015 Comp Metabolic Tbv475 CL 108 mEq/L 08/08/2015 Comp Metabolic Qmb310 CO2 25.0 mEq/L 08/08/2015 Comp Metabolic Wrb723 AN ION GAP 11 08/08/2015 Comp Metabolic Sya757 GL UCOSE 100 mg/dL 08/08/2015 Comp Metabolic Mji861 Cr eat 0.9 mg/dL 08/08/2015 Comp Metabolic Yfa832 eG FR 82 ml/min/1.73m2 08/07 Comp Metabolic Swo623 BUN 19 mg/dL 08/08/2015 Comp Metabolic Zlw691 B/ C Ratio 20.2 Ratio 08/08/2015 Comp Metabolic Liq585 CA LCIUM 8.5 mg/dL 08/08/2015 Comp Metabolic Izk314 AL K PHOS 56 U/L 08/08/2015 Comp Metabolic Kho391 T(SGOT) 18 U/L 08/08/2015 Comp Metabolic Nts137 AL T(SGPT) 17 U/L 08/08/2015 Comp Metabolic Rqf641 BI LI T 0.7 mg/dL 08/08/2015 Comp Metabolic Zsx743 AL BUMIN 3.9 g/dL 08/08/2015 Comp Metabolic Vpk866 TP RO 6.2 g/dL 08/08/2015 Comp Metabolic Dhe784 GL OB 2.3 g/dL 08/08/2015 Comp Metabolic Czl857 A/ G Ratio 1.7 Ratio 08/08/2015 Comp Metabolic Cen633 Os mo 282 mOsmo 08/08/2015 Tsh Ord6 hTSH II 3.19 uIU/mL 08/08/2015 %Hba1C Fef635 % HbA1c 69767-2 5.7 % 08/08/2015 %Hba1C Xgs774 Gluc Ave 117 mg/dL 08/08/2015 Cbc With [...] 31.4 pg 08/08/2015 Cbc With Differential Ord2 Cotton% 10.9 % 08/08/2015 Cbc With Differential Ord2 [...] 1.51 K/ul 08/08/2015 Cbc With Differential Ord2 Cotton ABS# 0.6 K/ul 08/08/2015 Cbc With Differential [...] CPT-4: J3301 04/26/2018 DRAIN/INJECT JOINT/B URSA CPT-4: 02504 04/26/2018 DRAIN/INJECT JOINT/B URSA CPT-4: 55077 08/25/2017 PPPS, SUBSEQ VISIT CPT- 4: G0439 05/30/2017 ADMIN INFLUENZA VIRU S VAC CPT-4: G0008 12/21/2016 FLU VACC PRSV FREE I NC ANTIG CPT-4: 46066 12/21/2016 PPPS, SUBSEQ VISIT CPT- 4: G0439 05/21/2016 TRIAMCINOLONE ACET I [place] NOS CPT-4: J3301 04/21/2016 THER/PROPH/DIAG INJ SC/IM CPT-4: 63125 04/21/2016 DRAIN/INJECT JOINT/B URSA CPT-4: 27142 11/13/2015 PNEUMOCOCCAL VACC [address]: 05460138 CPT-4: 30747 11/13/2015 ADMIN PNEUMOCOCCAL V ACCINE SNOMED CT: 82013494 CPT-4: G0009 11/13/2015 ADMIN INFLUENZA VIRU S VAC CPT-4: G0008 11/11/2015 FLU VACC 4 AZUL 3 YRS PLUS IM SNOMED CT: 50442401 CPT-4: 25798 11/11/2015 Vital Signs Date Vital 04/26/2018 Blood Pressure 1: 118/56 Code: 8480-6 BMI: 25.5 Code: 10260-4 Heart Rate 1: 60 bpm Height: 5'7" SpO2: 96% Weight: 163 lbs 12/21/2017 Blood Pressure 1: 132/56 Code: 8480-6 BMI: 25.7 Code: 80773-7 Heart Rate 1: 58 bpm Height: 5'7" SpO2: 93% Weight: 164 lbs 08/25/2017 Blood Pressure 1: 126/74 Code: 8480-6 BMI: 26.2 Code: 13388-5 Heart Rate 1: 70 bpm Height: 5'7" SpO2: 94% Weight: 167 lbs 05/30/2017 Blood Pressure 1: 120/66 Code: 8480-6 BMI: 26.6 Code: 61610-3 Heart Rate 1: 66 bpm Height: 5'7" SpO2: 95% Waist Measure (cm): 97 cm Weight: 170 lbs 04/20/2017 Blood Pressure 1: 138/78 Code: 8480-6 BMI: 26.6 Code: 79621-8 Heart Rate 1: 86 bpm Height: 5'7" SpO2: 96% Weight: 170 lbs 01/21/2017 Blood Pressure 1: 136/70 Code: 8480-6 BMI: 26.3 Code: 32130-8 Heart Rate 1: 79 bpm Height: 5'7" SpO2: 95% Weight: 168 lbs 10/22/2016 Blood Pressure 1: 134/72 Code: 8480-6 BMI: 26.3 Code: 41071-7 Heart Rate 1: 70 bpm Height: 5'7" SpO2: 95% Weight: 168 lbs 10/04/2016 Blood Pressure 1: 142/80 Code: 8480-6 BMI: 26.6 Code: 38824-6 Heart Rate 1: 72 bpm Height: 5'7" SpO2: 93% Weight: 170 lbs 06/18/2016 Blood Pressure 1: 132/76 Code: 8480-6 BMI: 26.2 Code: 84890-1 Heart Rate 1: 65 bpm Height: 5'7" SpO2: 95% Weight: 167 lbs 8 oz 05/21/2016 Blood Pressure 1: 126/76 Code: 8480-6 BMI: 26.0 Code: 38093-5 Heart Rate 1: 72 bpm Height: 5'7" SpO2: 98% Weight: 166 lbs 04/29/2016 Blood Pressure 1: 128/70 Code: 8480-6 BMI: 25.7 Code: 72178-7 Heart Rate 1: 67 bpm Height: 5'7" SpO2: 97% Temperature: 36.3 (C ) / 97.4 (F) Weight: 164 lbs 04/21/2016 Blood Pressure 1: 130/62 Code: 8480-6 BMI: 26.3 Code: 91521-4 Heart Rate 1: 74 bpm Height: 5'7" SpO2: 96% Temperature: 37.0 (C ) / 98.6 (F) Weight: 168 lbs 02/20/2016 Blood Pressure 1: 120/64 Code: 8480-6 BMI: 26.2 Code: 00357-5 Heart Rate 1: 65 bpm Height: 5'7" SpO2: 94% Weight: 167 lbs 01/01/2016 Blood Pressure 1: 106/60 Code: 8480-6 BMI: 25.7 Code: 44949-0 Heart Rate 1: 73 bpm Height: 5'7" SpO2: 98% Weight: 164 lbs 11/13/2015 Blood Pressure 1: 122/86 Code: 8480-6 BMI: 25.8 Code: 42412-2 Heart Rate 1: 80 bpm Height: 5'7" SpO2: 92% Weight: 165 lbs 11/07/2015 Blood Pressure 1: 118/64 Code: 8480-6 BMI: 25.8 Code: 27650-9 Heart Rate 1: 66 bpm Height: 5'7" SpO2: 95% Weight: 165 lbs 08/07/2015 Blood Pressure 1: 122/80 Code: 8480-6 BMI: 24.4 Code: 03813-2 Heart Rate 1: 74 bpm Height: 5'7" [...] Encounters Encounter Performer Loca tion Codes Date 30250 EST. PATIENT, LEVEL III Diagnosis: Essential (primary) hypertension[ICD10: I10] Diagnosis: Pain in right knee[ICD10: M25.561] Diagnosis: Pain in left shoulder[ICD10: M25.512] Lakeisha Hoskins MD, [facility] CPT- 4: 87293 04/26/2018 09951 EST. PATIENT, LEVEL IV Diagnosis: Type 2 diabetes mellitus without complications[ICD10: E11.9] Diagnosis: Essential (primary) hypertension[ICD10: I10] Diagnosis: Pain in right knee[ICD10: M25.561] [facility] CPT-4: 15950 12/21/2017 91806 EST. PATIENT, LEVEL IV Diagnosis: Type 2 diabetes mellitus without complications[ICD10: E11.9] Diagnosis: Essential (primary) hypertension[ICD10: I10] Diagnosis: Pain in right knee[ICD10: M25.561] [facility] CPT-4: 67106 08/25/2017 46208 EST. PATIENT, LEVEL IV Diagnosis: Type 2 diabetes mellitus without complications[ICD10: E11.9] Diagnosis: Essential (primary) hypertension[ICD10: I10] Lakeisha Hoskins MD, [facility] CPT-4: 57071 04/20/2017 ([id number]) 84554 EST. P ATIENT, LEVEL III Diagnosis: Essential (primary) hypertension[ICD10: I10] Diagnosis: Obstructive sleep apnea (adult) (pediatric)[ICD10: G47.33] Nancy Hoskins MD, [facility] CPT-4: 64413 01/21/2017 ([id number]) 06540 EST. P ATIENT, LEVEL IV Diagnosis: Essential (primary) hypertension[ICD10: I10] Diagnosis: Type 2 diabetes mellitus without complications[ICD10: E11.9] Diagnosis: Obstructive sleep apnea (adult) (pediatric)[ICD10: G47.33] Nancy Hoskins MD, [facility] CPT-4: 04235 10/22/2016 ([id number]) 72617 EST. P ATIENT, LEVEL III Diagnosis: Localized edema[ICD10: R60.0] Diagnosis: Rash and other nonspecific skin eruption[ICD10: R21] Nancy Hoskins MD, [facility] CPT-4: 36673 10/04/2016 ([id number]) 66873 EST. P ATIENT, LEVEL IV Diagnosis: Essential (primary) hypertension[ICD10: I10] Diagnosis: Type 2 diabetes mellitus without complications[ICD10: E11.9] Diagnosis: Mixed hyperlipidemia[ICD10: E78.2] Nancy Hoskins MD, [facility] CPT-4: 40802 06/18/2016 ([id number]) 26882 EST. P ATIENT, LEVEL III Diagnosis: Cough[ICD10: R05] Diagnosis: Acute bronchitis, unspecified[ICD10: J20.9] Nancy Hoskins MD, [facility] CPT-4: 72685 04/29/2016 63714 EST. PATIENT, LEVEL IV Diagnosis: Other acute sinusitis[ICD10: J01.80] Diagnosis: Other allergic rhinitis[ICD10: J30.89] Lakeisha Hoskins MD, [facility] CPT-4: 50257 04/21/2016 ([id number]) 92945 EST. P ATIENT, LEVEL IV Diagnosis: Essential (primary) hypertension[ICD10: I10] Diagnosis: Type 2 diabetes mellitus without complications[ICD10: E11.9] Diagnosis: Mixed hyperlipidemia[ICD10: E78.2] Diagnosis: Primary generalized (osteo)arthritis[ICD10: M15.0] Nancy Hoskins MD, [facility] CPT-4: 73615 02/20/2016 ([id number]) 64416 EST. P ATIENT, LEVEL IV Diagnosis: Cough[ICD10: R05] Diagnosis: Acute bronchitis due to Hemophilus influenzae[ICD10: J20.1] Diagnosis: Type 2 diabetes mellitus without complications[ICD10: E11.9] Diagnosis: Essential (primary) hypertension[ICD10: I10] Charlene Hoskins MD, [facility] CPT-4: 60076 01/01/2016 ([id number]) 87724 EST. P ATIENT, LEVEL IV Diagnosis: Essential (primary) hypertension[ICD10: I10] Diagnosis: Mixed hyperlipidemia[ICD10: E78.2] Diagnosis: Type 2 diabetes mellitus without complications[ICD10: E11.9] Nancy Hoskins MD, [facility] CPT-4: 43113 11/07/2015 OFFICE VISIT, NEW - LEVEL 4 Diagnosis: Type 2 diabetes mellitus without complications[ICD10: E11.9] Diagnosis: Essential (primary) hypertension[ICD10: I10] Diagnosis: Mixed hyperlipidemia[ICD10: E78.2] Diagnosis: Elevated prostate specific antigen [PSA][ICD10: R97.2] Nancy Hoskins MD, [facility] CPT-4: 14194 08/07/2015 Plan of Care Planned Activity Notes [...] of injection. 04/26/2018 Appointment: Lakeisha Putnam WPtel: [address] [place], [place] [phone] (30 min) [facility] 04/26/2018 Patient Education: Patient Medication Summary Completed [...] improve. 12/21/2017 Appointment: [id number] (15 min) Moderate 12/21/2017 Patient Education: Patient [...] of injection. 08/25/2017 Appointment: Lake[facility] Putnam [facility]Ptel[phone] [place] (15 min) Moderate 08/25/2017 Patient Education: Patient [...] Summary Completed 05/30/2017 Appointment: Lakeisha Putnam WPtel: [facility] - Annual Wellness Visit 05/27/2017 Appointment: Nancy Tavares WPtel: [facility]4 [phone] (30 min) Complex 04/22/2017 Visit Plan: Hypertension [...] less controlled. 04/20/2017 Appointment: Lakeisha Putnam WPtel: [facility]0 [phone] (30 min) Complex 04/20/2017 Patient Education: Patient [...] improved sleep, etc. Will fax note to [facility]. 01/21/2017 Appointment: Nancy Tavares WPtel: [phone] [phone] (30 min) Complex 01/21/2017 Appointment: Nancy Tavares WPtel: [phone] [phone] (30 min) Complex 01/21/2017 Patient Education: Patient [...] doing well-due for a new machine-will call [facility] to see what we need to do to get him a new machine. 10/22/2016 Appointment: Nancy Tavares WPtel: [phone] [place] (30 min) Complex 10/22/2016 Patient Education: [...] plan. 10/04/2016 Appointment: Nancy Tavares WPtel: [phone] [id number] [place] [address] (15 min) Moderate 10/04/2016 Patient Education: Patient [...] dications. 06/18/2016 Appointment: Nancy Tavares WPtel: [phone] [phone] (15 min) Moderate 06/18/2016 Patient Education: Patient [...] acutely worsen. 04/29/2016 Appointment: Nancy Tavares WPtel: [address] [place], [place] [id number] (15 min) Moderate 04/29/2016 Patient Education: Patient Medication Summary Completed 04/29/2016 Care Plan: CHEST X-RAY 2VW FRONTAL&LATL LOINC : 38870-8 Pending 04/29/2016 Visit Plan: Sinusitis - Pt [...] allergy spray. 04/21/2016 Appointment: Lakeisha Putnam WPtel: [address] [place], [place] [phone] (15 min) Moderate 04/21/2016 Patient Education: Patient [...] provided 02/20/2016 Appointment: Nancy Tavares WPtel: [phone] [phone] (30 min) Complex 02/20/2016 Patient Education: Patient [...] controlled. 01/01/2016 Appointment: Charlene Hoskins WPtel: [phone] [facility] (15 min) Moderate 01/01/2016 Patient Education: [...] injection. 11/13/2015 Appointment: Nancy Tavares WPtel: [phone] [phone] [place] (15 min) Moderate 11/13/2015 Patient Education: Patient [...] response to medications. DM-too early for Hgb [id number] to have done next week 11/07/2015 Appointment: [facility]avares [facility]Ptel[phone] (15 min) Moderate 11/07/2015 Patient Education: Patient [...] biopsy results 08/07/2015 Appointment: Nancy Tavares WPtel: [phone] New Patient 08/07/2015 Patient Education: Patient Medication [...] TIMES WEEKLY CONTINUE STEROID CREAM ORDERED BY [facility] [employer]IPPER CULTURE RASH LEFT AXILLA . Edema - [...] doing well-due for a new machine-will call [facility] to see what we need to [...] response to medications. DM-too early for Hgb [id number] to have done next week . Hypertension [...] improved sleep, etc. Will fax note to [facility]. . Hypertension - con tinue with [...]
--- OUTSIDE RECORDS SUMMARY | 2019-04-11 03:40 | XMS REPORT | CCD ---
Author Author Cesar Tavares Organization Charlene Hoskins MD, [facility] Address [address] [place] [address] Phone Care Team Providers Care Tire Changer Name Role Phone PP Unavailable CCM Unavailable Summary Purpose Interface Exchange Insurance Providers Payer name Policy type / Coverage type Covered constitution party ID Effective Begin Date Effective End Date WPS Medicare Part B Medicare Part B [id number] Unknown [facility] Part B [id number] Un known Family history Brother Diagnosis Age [...] Retir ed 08/07/[address]: 9998053 Quit over 10 years ago 1970 08/07/[address]: 274950946 Never drinks alcohol 08/07/2015 Allergies, Adverse Reactions, [...] 40 mg/mL maggie pension for injection RxNorm: 0903701 1 Milliliter(s) Inj 04/26/2018 04/26/2018 In active Kenalog 40 mg/mL maggie pension for injection RxNorm: 8634827 1 Milliliter(s) Inj 04/26/2018 04/26/2018 In active losartan 50 mg tablet RxNorm: 684412 TAKE 1 TABLET BY MOUTH ONCE DAILY 04/24/2018 No Stop Date Active fluticasone 50 mcg/a ctuation nasal spray,suspension RxNorm: 2999712 USE 2 SPRAY(S) IN EACH NOSTRIL ONCE DAILY 03/27/2018 No Stop Date Active Advair Diskus 250 mc g-50 mcg/dose powder for inhalation RxNorm: 5774344 INHALE 1 DOSE BY MOUTH TWICE DAILY 03/21/2018 No Stop Date Active montelukast 10 mg ta blet RxNorm: 792664 TAKE ONE TABLET BY MO UTH ONCE DAILY 03/15/2018 No Stop Date Active Advair Diskus 250 mc g-50 mcg/dose powder for inhalation RxNorm: 1252331 INHALE 1 DOSE BY MOUTH TWICE DAILY 02/20/2018 03/20/2018 Inactive fluticasone 50 mcg/a ctuation nasal spray,suspension RxNorm: 8116976 USE 2 SPRAY(S) IN EACH NOSTRIL ONCE DAILY 02/08/2018 03/26/2018 Inactive metformin 500 mg tablet RxNorm: 462123 TAKE 1 TABLET BY MOUTH ONCE DAILY 01/16/2018 No Stop Date Active Advair Diskus 250 mc g-50 mcg/dose powder for inhalation RxNorm: 3301372 INHALE 1 DOSE BY MOUTH TWICE DAILY 12/19/2017 02/19/2018 Inactive meloxicam 7.5 mg tablet RxNorm: 207806 TAKE 1 TABLET BY MOUTH ONCE DAILY 12/01/2017 No Stop Date Active simvastatin 20 mg ta blet RxNorm: 622117 TAKE 1 TABLET BY MOUT H ONCE DAILY 11/14/2017 No Stop Date Active losartan 50 mg tablet RxNorm: 329804 TAKE ONE TABLET BY MOUTH ONCE DAILY 10/27/2017 04/23/2018 In active Advair Diskus 250 mc g-50 mcg/dose powder for inhalation RxNorm: 6341713 INHALE 1 DOSE BY MOUTH TWICE DAILY 10/19/2017 12/18/2017 Inactive fluticasone 50 mcg/a ctuation nasal spray,suspension RxNorm: 8815100 USE TWO SPRAY(S) IN EACH NOSTRIL ONCE DAILY 10/19/2017 02/07/2018 Inactive Kenalog 40 mg/mL maggie pension for injection RxNorm: 7880859 1 Milliliter(s) Inj 08/25/2017 08/25/2017 In active meloxicam 7.5 mg tablet RxNorm: 610535 TAKE ONE TABLET BY MOUTH ONCE DAILY 06/06/2017 11/30/2017 In active simvastatin 20 mg ta blet RxNorm: 728893 TAKE ONE TABLET BY MO UTH ONCE DAILY 05/17/2017 11/13/2017 In active metformin 500 mg tablet RxNorm: 923433 TAKE ONE TABLET BY MOUTH ONCE DAILY 05/05/2017 01/15/2018 In active Advair Diskus 250 mc g-50 mcg/dose powder for inhalation RxNorm: 1264997 INHALE ONE DOSE BY MOUTH TWICE DAILY 04/19/2017 10/18/2017 Inactive Tamiflu 75 mg capsule RxNorm: 991741 1 Capsule(s) PO daily 03/25/2017 03/24/2017 Inactive Tamiflu 75 mg capsule RxNorm: 217039 1 Capsule(s) PO daily 03/25/2017 03/31/2017 Inactive montelukast 10 mg ta blet RxNorm: 710906 TAKE ONE TABLET BY MO UTH ONCE DAILY 03/21/2017 03/14/2018 In active losartan 50 mg tablet RxNorm: 369325 TAKE ONE TABLET BY MOUTH ONCE DAILY 01/27/2017 10/26/2017 In active fluticasone 50 mcg/a ctuation nasal spray,suspension RxNorm: 9870146 USE TWO SPRAY(S) IN EACH NOSTRIL ONCE DAILY 01/17/2017 10/18/2017 Inactive meloxicam 7.5 mg tablet RxNorm: 687014 TAKE ONE TABLET BY MOUTH ONCE DAILY 12/06/2016 06/03/2017 In active metformin 500 mg tablet RxNorm: 254518 Tablet(s) TAKE ONE TABLET BY MOUTH TWICE DAILY 11/30/2016 11/24/2017 Inactive simvastatin 20 mg ta blet RxNorm: 148758 TAKE ONE TABLET BY MO UTH ONCE DAILY 11/15/2016 05/13/2017 In active Advair Diskus 250 mc g-50 mcg/dose powder for inhalation RxNorm: 8053567 INHALE ONE PUFF BY MOUTH TWICE DAILY 10/22/2016 04/18/2017 Inactive ketoconazole 2 % sha mpoo RxNorm: 132555 1 Application TOP TIW 10/04/2016 10/17/2016 Inactive fluticasone 50 mcg/a ctuation nasal spray,suspension RxNorm: 1454610 USE TWO SPRAY(S) IN EACH NOSTRIL ONCE DAILY 09/21/2016 11/19/2016 Inactive montelukast 10 mg ta blet RxNorm: 904288 TAKE ONE TABLET BY [facility] ONCE DAILY 09/21/2016 03/19/2017 In active losartan 50 mg tablet RxNorm: 180175 TAKE ONE TABLET BY MOUTH ONCE DAILY 08/02/2016 01/26/2017 In active metformin 500 mg tablet RxNorm: 311660 TAKE ONE TABLET BY MOUTH TWICE DAILY 07/22/2016 10/19/2016 In active furosemide 20 mg tablet RxNorm: 404790 1 Tablet(s) PO daily as needed for swell ing 07/21/2016 04/18/2018 Inactive meloxicam 7.5 mg tablet RxNorm: 384821 TAKE ONE TABLET BY MOUTH ONCE DAILY 06/08/2016 12/04/2016 In active cefdinir 300 mg capsule RxNorm: 750452 1 Capsule(s) PO BID 04/29/2016 05/05/2016 Inactive prednisone 20 mg tablet RxNorm: 240349 1 Tablet(s) PO BID 04/29/2016 05/03/2016 Inactive Zithromax Z-Sherif 250 mg tablet RxNorm: 135335 1 Tablet(s) PO UD 04/21/2016 04/28/2016 Inactive Kenalog 40 mg/mL maggie pension for injection RxNorm: 6397247 1 Milliliter(s) Inj 04/21/2016 04/21/2016 In active montelukast 10 mg ta blet RxNorm: 325256 TAKE ONE TABLET BY [facility] ONCE DAILY 03/22/2016 09/17/2016 In active fluticasone 50 mcg/a ctuation nasal spray,suspension RxNorm: 0958501 2 [place] NASAL daily each nare 03/15/2016 07/12/2016 Inactive qs metformin 500 mg tablet RxNorm: 135626 1 Tablet(s) PO daily 01/16/2016 2016 Inactive Patient does not need a refill- just upd ate dosing Advair Diskus 250 mc g-50 mcg/dose powder for inhalation RxNorm: 5009314 1 INH BID 01/01/2016 04/29/2016 In active Advair Diskus 250 mc g-50 mcg/dose powder for inhalation RxNorm: 9492901 1 INH daily 01/01/2016 12/31/2015 Inactive metformin 500 mg tablet RxNorm: 260484 1 Tablet(s) PO daily 01/01/2016 01/15/2016 Inactive simvastatin 40 mg ta blet RxNorm: 967493 1 Tablet(s) PO daily 01/01/2016 04/17/2018 Inactive azithromycin 250 mg tablet RxNorm: 667957 1 Tablet(s) PO take t wo pills on day #1, then one pill daily x 4 more days 01/01/2016 02/17/2016 Inactive meloxicam 7.5 mg tablet RxNorm: 134669 1 Tablet(s) PO daily 12/11/2015 06/07/2016 Inactive simvastatin 20 mg ta blet RxNorm: 165411 1 Tablet(s) PO daily 11/21/2015 12/31/2015 Inactive metformin 500 mg tablet RxNorm: 989435 1 Tablet(s) PO BID 11/21/2015 12/31/2015 Inactive Advair Diskus 250 mc g-50 mcg/dose powder for inhalation RxNorm: 6148953 1 INH BID 11/21/2015 12/31/2015 In active montelukast 10 mg ta blet RxNorm: 218100 1 Tablet(s) PO daily 09/25/2015 03/21/2016 Inactive losartan 50 mg tablet RxNorm: 695778 1 Tablet(s) PO daily 09/04/2015 08/01/2016 Inactive Restasis 0.05 % eye drops in a dropperette RxNorm: 352212 1 gtts OPH BID 08/07/2015 No Stop Date Active meloxicam 7.5 mg tablet RxNorm: 204697 1 Tablet(s) PO daily 08/07/2015 09/05/2015 Inactive Kay oral RxNorm: 769447 oral No Start Date Active finasteride 5 mg tablet RxNorm: 152846 1 Tablet(s) PO daily No Start Date Active Zyrtec 10 mg tablet RxNorm: 7677881 1 Tablet(s) PO daily No Start Date Active Co Q-10 200 mg capsule RxNorm: 646330 1 Capsule(s) PO daily No Start Date Active Calcium 500 + D (D3) oral RxNorm: 752818 oral No S tart Date Active simethicone 125 mg c apsule RxNorm: 350841 Capsule(s) PO as needed No Start Date Active Vitamin D3 1,000 uni t tablet RxNorm: 930171 1 Tablet(s) PO daily No Start Date Active omega-3 fatty acids 1,000 mg capsule RxNorm: 4 Capsule(s) PO daily No Start Date Active triamcinolone aceton chasity 0.1 % topical cream RxNorm: 3439460 1 TOP UD No Start Date Active fluticasone 50 mcg/a ctuation nasal spray,suspension RxNorm: 8027525 2 [place] NASAL daily each nare No Start Date 03/14/2016 Inactive losartan 50 mg tablet RxNorm: 823763 1 Tablet(s) PO daily No Start Date 09/03/2015 Inactive metformin 500 mg tablet RxNorm: 097146 1 Tablet(s) PO daily No Start Date 11/20/2015 Inactive simvastatin 40 mg ta blet RxNorm: 370082 1 Tablet(s) PO daily No Start Date 11/20/2015 Inactive furosemide 20 mg tablet RxNorm: 701847 1 Tablet(s) PO daily as needed No Start Date 07/20/2016 Inactive Advair Diskus 250 mc g-50 mcg/dose powder for inhalation RxNorm: 1870766 1 INH daily No Start Date 11/20/2015 Inactive Multiple Vitamin oral RxNorm: 64741 oral No Start Date 12/31/2015 Inactive montelukast 10 mg ta blet RxNorm: 043315 1 Tablet(s) PO daily No Start Date 09/24/2015 Inactive Medication Administered Medication Codes Instruc tions Start Date Status Kenalog 40 mg/mL suspension for injection RxNorm: 3756387 1Milliliter 04/26/2018 N o longer Active Kenalog 40 mg/mL suspension for injection RxNorm: 5539680 1Milliliter 04/26/2018 N o longer Active Kenalog 40 mg/mL suspension for injection RxNorm: 7548179 1Milliliter 08/25/2017 N o longer Active Kenalog 40 mg/mL suspension for injection RxNorm: 9907518 1Milliliter 04/21/2016 N o longer Active Immunizations [...] Code Item Item Code Result Date %Hba1C Xpz933 % HbA1c 96321-4 6.0 % 12/21/2017 %Hba1C Khg097 Gluc Ave 126 mg/dL 12/21/2017 %Hba1C Btk155 % HbA1c 07723-9 6.2 % 04/20/2017 %Hba1C Taz240 Gluc Ave 131 mg/dL 04/20/2017 Cbc With [...] 31.8 pg 04/20/2017 Cbc With Differential Ord2 Edgar% 9.3 % 04/20/2017 Cbc With Differential Ord2 [...] 1.82 K/ul 04/20/2017 Cbc With Differential Ord2 Edgar ABS# 0.6 K/ul 04/20/2017 Cbc With Differential Ord2 Eos ABS# 0.2 K/ul 04/20/2017 Cbc With Differential Ord2 Baso ABS# 0.0 K/ul 04/20/2017 Comp Metabolic Vva340 NA 141 mEq/L 04/20/2017 Comp Metabolic Yyw217 K 4.5 mEq/L 04/20/2017 Comp Metabolic Dfq348 CL 106 mEq/L 04/20/2017 Comp Metabolic Pny503 CO2 27.0 mEq/L 04/20/2017 Comp Metabolic Vpg641 AN ION GAP 13 04/20/2017 Comp Metabolic Iih918 GL UCOSE 109 mg/dL 04/20/2017 Comp Metabolic Cxe274 Cr eat 1.0 mg/dL 04/20/2017 Comp Metabolic Bbo387 eG FR 81 ml/min/1.73m2 04/20 Comp Metabolic Csv899 BUN 23 mg/dL 04/20/2017 Comp Metabolic Ktn290 B/ C Ratio 24.2 Ratio 04/20/2017 Comp Metabolic Obj771 CA LCIUM 9.3 mg/dL 04/20/2017 Comp Metabolic Gyp437 AL K PHOS 82 U/L 04/20/2017 Comp Metabolic Qtk694 T(SGOT) 22 U/L 04/20/2017 Comp Metabolic Ige563 AL T(SGPT) 24 U/L 04/20/2017 Comp Metabolic Wer510 BI LI T 0.4 mg/dL 04/20/2017 Comp Metabolic Znr232 AL BUMIN 4.3 g/dL 04/20/2017 Comp Metabolic Lit228 TP RO 6.8 g/dL 04/20/2017 Comp Metabolic Fwc654 GL OB 2.5 g/dL 04/20/2017 Comp Metabolic Edl958 A/ G Ratio 1.7 Ratio 04/20/2017 Comp Metabolic Nod074 Os mo 286 mOsmo 04/20/2017 %Hba1C Xix368 % HbA1c 48124-9 5.8 % 10/22/2016 %Hba1C Jee293 Gluc Ave 120 mg/dL 10/22/2016 Cbc With [...] 32.5 pg 10/22/2016 Cbc With Differential Ord2 Edgar% 10.3 % 10/22/2016 Cbc With Differential Ord2 [...] 1.85 K/ul 10/22/2016 Cbc With Differential Ord2 Edgar ABS# 0.8 K/ul 10/22/2016 Cbc With Differential Ord2 Eos ABS# 0.3 K/ul 10/22/2016 Cbc With Differential Ord2 Baso ABS# 0.0 K/ul 10/22/2016 Comp Metabolic Qnc202 NA 141 mEq/L 10/22/2016 Comp Metabolic Nzc952 K 4.4 mEq/L 10/22/2016 Comp Metabolic Rcv491 CL 105 mEq/L 10/22/2016 Comp Metabolic Itw761 CO2 27.0 mEq/L 10/22/2016 Comp Metabolic Myq002 AN ION GAP 13 10/22/2016 Comp Metabolic Mst103 GL UCOSE 103 mg/dL 10/22/2016 Comp Metabolic Daj492 Cr eat 1.0 mg/dL 10/22/2016 Comp Metabolic Syq824 eG FR 76 ml/min/1.73m2 10/22 Comp Metabolic Hrp124 BUN 27 mg/dL 10/22/2016 Comp Metabolic Kyc824 B/ C Ratio 27.0 Ratio 10/22/2016 Comp Metabolic Hkk280 CA LCIUM 9.3 mg/dL 10/22/2016 Comp Metabolic Xsj010 AL K PHOS 72 U/L 10/22/2016 Comp Metabolic Ckg920 T(SGOT) 23 U/L 10/22/2016 Comp Metabolic Bfh534 AL T(SGPT) 26 U/L 10/22/2016 Comp Metabolic Khq399 BI LI T 0.4 mg/dL 10/22/2016 Comp Metabolic Ory833 AL BUMIN 4.2 g/dL 10/22/2016 Comp Metabolic Yyq902 TP RO 6.7 g/dL 10/22/2016 Comp Metabolic Ise348 GL OB 2.5 g/dL 10/22/2016 Comp Metabolic Jwj283 A/ G Ratio 1.6 Ratio 10/22/2016 Comp Metabolic Tqe708 Os mo 287 mOsmo 10/22/2016 Comp Metabolic Olm011 NA 143 mEq/L 06/17/2016 Comp Metabolic Mef886 K 4.1 mEq/L 06/17/2016 Comp Metabolic Aqo638 CL 108 mEq/L 06/17/2016 Comp Metabolic Qui616 CO2 28.0 mEq/L 06/17/2016 Comp Metabolic Crp054 AN ION GAP 11 06/17/2016 Comp Metabolic Twl872 GL UCOSE 106 mg/dL 06/17/2016 Comp Metabolic Pfx817 Cr eat 0.9 mg/dL 06/17/2016 Comp Metabolic Dbu149 eG FR 92 ml/min/1.73m2 06/17 Comp Metabolic Szr153 BUN 22 mg/dL 06/17/2016 Comp Metabolic Lhi091 B/ C Ratio 25.9 Ratio 06/17/2016 Comp Metabolic Ffz620 CA LCIUM 8.8 mg/dL 06/17/2016 Comp Metabolic Jyo896 AL K PHOS 55 U/L 06/17/2016 Comp Metabolic Shk286 T(SGOT) 21 U/L 06/17/2016 Comp Metabolic Vmm374 AL T(SGPT) 24 U/L 06/17/2016 Comp Metabolic Qbc250 BI LI T 0.6 mg/dL 06/17/2016 Comp Metabolic Sjn539 AL BUMIN 4.0 g/dL 06/17/2016 Comp Metabolic Ebk179 TP RO 6.2 g/dL 06/17/2016 Comp Metabolic Vva031 GL OB 2.2 g/dL 06/17/2016 Comp Metabolic Gvu653 A/ G Ratio 1.8 Ratio 06/17/2016 Comp Metabolic Irf643 Os mo 289 mOsmo 06/17/2016 Lipid Ord30 CHOL 163 mg/dL 06/17/2016 Lipid Ord30 HDL 54.0 mg/dl 06/17/2016 Lipid Ord30 TRIG 133 mg/dL 06/17/2016 Lipid Ord30 LDL 82 mg/dL 06/17/2016 Lipid Ord30 C/HDL 3.0 Ratio 06/17/2016 %Hba1C Lsg195 % HbA1c 09227-7 6.0 % 06/17/2016 %Hba1C Mxc437 Gluc Ave 126 mg/dL 06/17/2016 Total Psa [...] 32.7 pg 06/17/2016 Cbc With Differential Ord2 Edgar% 10.7 % 06/17/2016 Cbc With Differential Ord2 [...] 1.71 K/ul 06/17/2016 Cbc With Differential Ord2 Edgar ABS# 0.6 K/ul 06/17/2016 Cbc With Differential Ord2 Eos ABS# 0.2 K/ul 06/17/2016 Cbc With Differential Ord2 Baso ABS# 0.0 K/ul 06/17/2016 Tsh Ord6 hTSH II 2.91 uIU/mL 06/17/2016 Tsh Ord6 hTSH II 2.45 uIU/mL 02/19/2016 %Hba1C Hlq906 % HbA1c 26672-9 5.8 % 02/19/2016 %Hba1C Czh194 Gluc Ave 120 mg/dL 02/19/2016 Comp Metabolic Iae485 NA 141 mEq/L 02/19/2016 Comp Metabolic Uvi551 K 4.2 mEq/L 02/19/2016 Comp Metabolic Dji603 CL 107 mEq/L 02/19/2016 Comp Metabolic Bfh860 CO2 29.0 mEq/L 02/19/2016 Comp Metabolic Hmm430 AN ION GAP 9 02/19/2016 Comp Metabolic Fxm580 GL UCOSE 106 mg/dL 02/19/2016 Comp Metabolic Hma855 Cr eat 0.9 mg/dL 02/19/2016 Comp Metabolic Egs484 eG FR 90 ml/min/1.73m2 02/18 Comp Metabolic Spd706 BUN 24 mg/dL 02/19/2016 Comp Metabolic Edi894 B/ C Ratio 27.6 Ratio 02/19/2016 Comp Metabolic Ysr118 CA LCIUM 9.1 mg/dL 02/19/2016 Comp Metabolic Rgx429 AL K PHOS 67 U/L 02/19/2016 Comp Metabolic Kwk992 T(SGOT) 25 U/L 02/19/2016 Comp Metabolic Dom832 AL T(SGPT) 31 U/L 02/19/2016 Comp Metabolic Czt931 BI LI T 0.6 mg/dL 02/19/2016 Comp Metabolic Gzf527 AL BUMIN 4.1 g/dL 02/19/2016 Comp Metabolic Nxb347 TP RO 6.5 g/dL 02/19/2016 Comp Metabolic Tbk723 GL OB 2.4 g/dL 02/19/2016 Comp Metabolic Whv290 A/ G Ratio 1.7 Ratio 02/19/2016 Comp Metabolic Kiy538 Os mo 286 mOsmo 02/19/2016 Cbc With [...] 31.7 pg 02/19/2016 Cbc With Differential Ord2 Edgar% 10.5 % 02/19/2016 Cbc With Differential Ord2 [...] 1.59 K/ul 02/19/2016 Cbc With Differential Ord2 Edgar ABS# 0.6 K/ul 02/19/2016 Cbc With Differential Ord2 Eos ABS# 0.3 K/ul 02/19/2016 Cbc With Differential Ord2 Baso ABS# 0.0 K/ul 02/19/2016 Lipid Ord30 CHOL 174 mg/dL 02/19/2016 Lipid Ord30 HDL 54.0 mg/dl 02/19/2016 Lipid Ord30 TRIG 110 mg/dL 02/19/2016 Lipid Ord30 LDL 98 mg/dL 02/19/2016 Lipid Ord30 C/HDL 3.2 Ratio 02/19/2016 %Hba1C Zev837 % HbA1c 48859-5 6.0 % 11/11/2015 %Hba1C Unr329 Gluc Ave 126 mg/dL 11/11/2015 %Hba1C Hxx917 % HbA1c 45678-4 6.0 % 11/07/2015 %Hba1C Ncm679 Gluc Ave 126 mg/dL 11/07/2015 Cbc With [...] 32.0 pg 11/06/2015 Cbc With Differential Ord2 Edgar% 9.5 % 11/06/2015 Cbc With Differential Ord2 [...] 1.79 K/ul 11/06/2015 Cbc With Differential Ord2 Edgar ABS# 0.6 K/ul 11/06/2015 Cbc With Differential Ord2 Eos ABS# 0.3 K/ul 11/06/2015 Cbc With Differential Ord2 Baso ABS# 0.0 K/ul 11/06/2015 Comp Metabolic Dae247 NA 141 mEq/L 11/06/2015 Comp Metabolic Zla681 K 4.3 mEq/L 11/06/2015 Comp Metabolic Jmx263 CL 107 mEq/L 11/06/2015 Comp Metabolic Lkt264 CO2 28.0 mEq/L 11/06/2015 Comp Metabolic Jjb248 AN ION GAP 10 11/06/2015 Comp Metabolic Jvg848 GL UCOSE 117 mg/dL 11/06/2015 Comp Metabolic Ajn076 Cr eat 0.9 mg/dL 11/06/2015 Comp Metabolic Mut666 eG FR 88 ml/min/1.73m2 11/05 Comp Metabolic Qgo935 BUN 22 mg/dL 11/06/2015 Comp Metabolic Hax196 B/ C Ratio 25.0 Ratio 11/06/2015 Comp Metabolic Ler173 CA LCIUM 9.1 mg/dL 11/06/2015 Comp Metabolic Vbf937 AL K PHOS 59 U/L 11/06/2015 Comp Metabolic Qms575 T(SGOT) 23 U/L 11/06/2015 Comp Metabolic Oud669 AL T(SGPT) 26 U/L 11/06/2015 Comp Metabolic Lyb992 BI LI T 0.6 mg/dL 11/06/2015 Comp Metabolic Nrt433 AL BUMIN 4.0 g/dL 11/06/2015 Comp Metabolic Vgs895 TP RO 6.4 g/dL 11/06/2015 Comp Metabolic Dma576 GL OB 2.4 g/dL 11/06/2015 Comp Metabolic Xgj984 A/ G Ratio 1.7 Ratio 11/06/2015 Comp Metabolic Zoy035 Os mo 286 mOsmo 11/06/2015 Tsh Ord6 hTSH II 2.59 uIU/mL 11/06/2015 Lipid Ord30 CHOL 159 mg/dL 11/06/2015 Lipid Ord30 HDL 42.0 mg/dl 11/06/2015 Lipid Ord30 TRIG 129 mg/dL 11/06/2015 Lipid Ord30 LDL 91 mg/dL 11/06/2015 Lipid Ord30 C/HDL 3.8 Ratio 11/06/2015 Comp Metabolic Inp003 NA 140 mEq/L 08/08/2015 Comp Metabolic Kxj646 K 4.0 mEq/L 08/08/2015 Comp Metabolic Ige127 CL 108 mEq/L 08/08/2015 Comp Metabolic Wbd111 CO2 25.0 mEq/L 08/08/2015 Comp Metabolic Oon999 AN ION GAP 11 08/08/2015 Comp Metabolic Gkp415 GL UCOSE 100 mg/dL 08/08/2015 Comp Metabolic Nri254 Cr eat 0.9 mg/dL 08/08/2015 Comp Metabolic Sot679 eG FR 82 ml/min/1.73m2 08/07 Comp Metabolic Jcx147 BUN 19 mg/dL 08/08/2015 Comp Metabolic Ccm036 B/ C Ratio 20.2 Ratio 08/08/2015 Comp Metabolic Lop105 CA LCIUM 8.5 mg/dL 08/08/2015 Comp Metabolic Gih634 AL K PHOS 56 U/L 08/08/2015 Comp Metabolic Iyn903 T(SGOT) 18 U/L 08/08/2015 Comp Metabolic Qzw448 AL T(SGPT) 17 U/L 08/08/2015 Comp Metabolic Dej994 BI LI T 0.7 mg/dL 08/08/2015 Comp Metabolic Hsa862 AL BUMIN 3.9 g/dL 08/08/2015 Comp Metabolic Emv125 TP RO 6.2 g/dL 08/08/2015 Comp Metabolic Ysu727 GL OB 2.3 g/dL 08/08/2015 Comp Metabolic Uwi936 A/ G Ratio 1.7 Ratio 08/08/2015 Comp Metabolic Tnm129 Os mo 282 mOsmo 08/08/2015 Tsh Ord6 hTSH II 3.19 uIU/mL 08/08/2015 %Hba1C Wqg389 % HbA1c 14803-3 5.7 % 08/08/2015 %Hba1C Sjc792 Gluc Ave 117 mg/dL 08/08/2015 Cbc With [...] 31.4 pg 08/08/2015 Cbc With Differential Ord2 Edgar% 10.9 % 08/08/2015 Cbc With Differential Ord2 [...] 1.51 K/ul 08/08/2015 Cbc With Differential Ord2 Edgar ABS# 0.6 K/ul 08/08/2015 Cbc With Differential [...] CPT-4: J3301 04/26/2018 DRAIN/INJECT JOINT/B URSA CPT-4: 08592 04/26/2018 DRAIN/INJECT JOINT/B URSA CPT-4: 19196 08/25/2017 PPPS, SUBSEQ VISIT CPT- 4: G0439 05/30/2017 ADMIN INFLUENZA VIRU S VAC CPT-4: G0008 12/21/2016 FLU VACC PRSV FREE I NC ANTIG CPT-4: 20880 12/21/2016 PPPS, SUBSEQ VISIT CPT- 4: G0439 05/21/2016 TRIAMCINOLONE ACET I [place] NOS CPT-4: J3301 04/21/2016 THER/PROPH/DIAG INJ SC/IM CPT-4: 05882 04/21/2016 DRAIN/INJECT JOINT/B URSA CPT-4: 56938 11/13/2015 PNEUMOCOCCAL VACC [address]: 31837021 CPT-4: 99898 11/13/2015 ADMIN PNEUMOCOCCAL V ACCINE SNOMED CT: 67146878 CPT-4: G0009 11/13/2015 ADMIN INFLUENZA VIRU S VAC CPT-4: G0008 11/11/2015 FLU VACC 4 AZUL 3 YRS PLUS IM SNOMED CT: 00606566 CPT-4: 28122 11/11/2015 Vital Signs Date Vital 04/26/2018 Blood Pressure 1: 118/56 Code: 8480-6 BMI: 25.5 Code: 30494-3 Heart Rate 1: 60 bpm Height: 5'7" SpO2: 96% Weight: 163 lbs 12/21/2017 Blood Pressure 1: 132/56 Code: 8480-6 BMI: 25.7 Code: 84871-1 Heart Rate 1: 58 bpm Height: 5'7" SpO2: 93% Weight: 164 lbs 08/25/2017 Blood Pressure 1: 126/74 Code: 8480-6 BMI: 26.2 Code: 64731-9 Heart Rate 1: 70 bpm Height: 5'7" SpO2: 94% Weight: 167 lbs 05/30/2017 Blood Pressure 1: 120/66 Code: 8480-6 BMI: 26.6 Code: 07030-6 Heart Rate 1: 66 bpm Height: 5'7" SpO2: 95% Waist Measure (cm): 97 cm Weight: 170 lbs 04/20/2017 Blood Pressure 1: 138/78 Code: 8480-6 BMI: 26.6 Code: 00171-2 Heart Rate 1: 86 bpm Height: 5'7" SpO2: 96% Weight: 170 lbs 01/21/2017 Blood Pressure 1: 136/70 Code: 8480-6 BMI: 26.3 Code: 61241-6 Heart Rate 1: 79 bpm Height: 5'7" SpO2: 95% Weight: 168 lbs 10/22/2016 Blood Pressure 1: 134/72 Code: 8480-6 BMI: 26.3 Code: 81580-6 Heart Rate 1: 70 bpm Height: 5'7" SpO2: 95% Weight: 168 lbs 10/04/2016 Blood Pressure 1: 142/80 Code: 8480-6 BMI: 26.6 Code: 17073-1 Heart Rate 1: 72 bpm Height: 5'7" SpO2: 93% Weight: 170 lbs 06/18/2016 Blood Pressure 1: 132/76 Code: 8480-6 BMI: 26.2 Code: 50065-1 Heart Rate 1: 65 bpm Height: 5'7" SpO2: 95% Weight: 167 lbs 8 oz 05/21/2016 Blood Pressure 1: 126/76 Code: 8480-6 BMI: 26.0 Code: 97055-6 Heart Rate 1: 72 bpm Height: 5'7" SpO2: 98% Weight: 166 lbs 04/29/2016 Blood Pressure 1: 128/70 Code: 8480-6 BMI: 25.7 Code: 66452-6 Heart Rate 1: 67 bpm Height: 5'7" SpO2: 97% Temperature: 36.3 (C ) / 97.4 (F) Weight: 164 lbs 04/21/2016 Blood Pressure 1: 130/62 Code: 8480-6 BMI: 26.3 Code: 75385-3 Heart Rate 1: 74 bpm Height: 5'7" SpO2: 96% Temperature: 37.0 (C ) / 98.6 (F) Weight: 168 lbs 02/20/2016 Blood Pressure 1: 120/64 Code: 8480-6 BMI: 26.2 Code: 95528-3 Heart Rate 1: 65 bpm Height: 5'7" SpO2: 94% Weight: 167 lbs 01/01/2016 Blood Pressure 1: 106/60 Code: 8480-6 BMI: 25.7 Code: 22168-2 Heart Rate 1: 73 bpm Height: 5'7" SpO2: 98% Weight: 164 lbs 11/13/2015 Blood Pressure 1: 122/86 Code: 8480-6 BMI: 25.8 Code: 05175-0 Heart Rate 1: 80 bpm Height: 5'7" SpO2: 92% Weight: 165 lbs 11/07/2015 Blood Pressure 1: 118/64 Code: 8480-6 BMI: 25.8 Code: 22792-8 Heart Rate 1: 66 bpm Height: 5'7" SpO2: 95% Weight: 165 lbs 08/07/2015 Blood Pressure 1: 122/80 Code: 8480-6 BMI: 24.4 Code: 13077-2 Heart Rate 1: 74 bpm Height: 5'7" [...] Encounters Encounter Performer Loca tion Codes Date 80616 EST. PATIENT, LEVEL III Diagnosis: Essential (primary) hypertension[ICD10: I10] Diagnosis: Pain in right knee[ICD10: M25.561] Diagnosis: Pain in left shoulder[ICD10: M25.512] Lakeisha Hoskins MD, [facility] CPT- 4: 02022 04/26/2018 [id number] EST. PATIENT, LEVEL IV Diagnosis: Type 2 diabetes mellitus without complications[ICD10: E11.9] Diagnosis: Essential (primary) hypertension[ICD10: I10] Diagnosis: Pain in right knee[ICD10: M25.561] Lakeisha Hoskins MD, [facility] CPT-4: 04367 12/21/2017 [id number] EST. PATIENT, LEVEL IV Diagnosis: Type 2 diabetes mellitus without complications[ICD10: E11.9] Diagnosis: Essential (primary) hypertension[ICD10: I10] Diagnosis: Pain in right knee[ICD10: M25.561] Lakeisha Hoskins MD, [facility] CPT-4: 56279 08/25/2017 [id number] EST. PATIENT, LEVEL IV Diagnosis: Type 2 diabetes mellitus without complications[ICD10: E11.9] Diagnosis: Essential (primary) hypertension[ICD10: I10] Lakeisha Hoskins MD, [facility] CPT-4: 39944 04/20/2017 ([id number]) 73313 EST. P ATIENT, LEVEL III Diagnosis: Essential (primary) hypertension[ICD10: I10] Diagnosis: Obstructive sleep apnea (adult) (pediatric)[ICD10: G47.33] Nancy Hoskins MD, [facility] CPT-4: 85023 01/21/2017 ([id number]) 68027 EST. P ATIENT, LEVEL IV Diagnosis: Essential (primary) hypertension[ICD10: I10] Diagnosis: Type 2 diabetes mellitus without complications[ICD10: E11.9] Diagnosis: Obstructive sleep apnea (adult) (pediatric)[ICD10: G47.33] Nancy Hoskins MD, [facility] CPT-4: 33008 10/22/2016 ([id number]) 53651 EST. P ATIENT, LEVEL III Diagnosis: Localized edema[ICD10: R60.0] Diagnosis: Rash and other nonspecific skin eruption[ICD10: R21] Nancy Hoskins MD, [facility] CPT-4: 68303 10/04/2016 ([id number]) 45743 EST. P ATIENT, LEVEL IV Diagnosis: Essential (primary) hypertension[ICD10: I10] Diagnosis: Type 2 diabetes mellitus without complications[ICD10: E11.9] Diagnosis: Mixed hyperlipidemia[ICD10: E78.2] Nancy Hoskins MD, [facility] CPT-4: 96426 06/18/2016 ([id number]) 07417 EST. P ATIENT, LEVEL III Diagnosis: Cough[ICD10: R05] Diagnosis: Acute bronchitis, unspecified[ICD10: J20.9] Nancy Hoskins MD, [facility] CPT-4: 78327 04/29/2016 42628 EST. PATIENT, LEVEL IV Diagnosis: Other acute sinusitis[ICD10: J01.80] Diagnosis: Other allergic rhinitis[ICD10: J30.89] Lakeisha Hoskins MD, [facility] CPT-4: 70579 04/21/2016 ([id number]) 21260 EST. P ATIENT, LEVEL IV Diagnosis: Essential (primary) hypertension[ICD10: I10] Diagnosis: Type 2 diabetes mellitus without complications[ICD10: E11.9] Diagnosis: Mixed hyperlipidemia[ICD10: E78.2] Diagnosis: Primary generalized (osteo)arthritis[ICD10: M15.0] Nancy Hoskins MD, [facility] CPT-4: 49931 02/20/2016 ([id number]) [id number] EST. P ATIENT, LEVEL IV Diagnosis: Cough[ICD10: R05] Diagnosis: Acute bronchitis due to Hemophilus influenzae[ICD10: J20.1] Diagnosis: Type 2 diabetes mellitus without complications[ICD10: E11.9] Diagnosis: Essential (primary) hypertension[ICD10: I10] Charlene Hoskins MD, [facility] CPT-4: 55472 01/01/2016 ([id number]) [id number] EST. P ATIENT, LEVEL IV Diagnosis: Essential (primary) hypertension[ICD10: I10] Diagnosis: Mixed hyperlipidemia[ICD10: E78.2] Diagnosis: Type 2 diabetes mellitus without complications[ICD10: E11.9] Nancy Hoskins MD, [facility] CPT-4: 11985 11/07/2015 OFFICE VISIT, NEW - LEVEL 4 Diagnosis: Type 2 diabetes mellitus without complications[ICD10: E11.9] Diagnosis: Essential (primary) hypertension[ICD10: I10] Diagnosis: Mixed hyperlipidemia[ICD10: E78.2] Diagnosis: Elevated prostate specific antigen [PSA][ICD10: R97.2] Nancy Hoskins MD, [facility] CPT-4: 76894 08/07/2015 Plan of Care Planned Activity Notes [...] of injection. 04/26/2018 Appointment: Lakeisha Putnam WPtel: [address] [place], [place] [id number] (30 min) [facility] 04/26/2018 Patient Education: Patient Medication Summary [...] improve. 12/21/2017 App[facility]ment[phone] [facility] ([facility] min) Moderate 12/21/2017 Patient Education: [...] of injection. 08/25/2017 App[facility]ment: [phone] [facility] (15 min) Moderate 08/25/2017 Patient Education: Patient [...] Lakeisha Putnam WPtel: [facility] [place] [address] - Annual Wellness Visit 05/27/2017 Appointment: Nancy Tavares WPtel: [facility] [place] [phone] (30 min) Complex 04/22/2017 Visit Plan: Hypertension [...] less controlled. 04/20/2017 Appointment: Lakeisha Putnam WPtel: [facility] (30 min) Complex 04/20/2017 Patient Education: Patient [...] improved sleep, etc. Will fax note to [facility]. 01/21/2017 Appointment: Nancy Tavares WPtel: [phone] (30 min) Complex 01/21/2017 Appointment: Nancy Tavares WPtel: [phone] (30 min) Complex 01/21/2017 Patient Education: [...] doing well-due for a new machine-will call [facility] to see what we need to do to get him a new machine. 10/22/2016 Appointment: Nancy Tavares WPtel: [phone] (30 min) Complex 10/22/2016 Patient Education: Patient [...] verbalized understanding of plan. 10/04/2016 Appointment: Nancy Tavaresl: [address] [facility] [place] [address] (15 min) Moderate 10/04/2016 Patient Education: Patient Medication Summary Completed 10/04/2016 Visit Plan: Hypertension - crow zayas - continue with current medications, continue with [...] dications. 06/18/2016 Appointment: Nancy Tavares WPtel: [address] [phone] (15 min) Moderate 06/18/2016 Patient Education: [...] acutely worsen. 04/29/2016 Appointment: Nancy Tavares WPtel: [address] [place], [place] [phone] (15 min) Moderate 04/29/2016 Patient Education: Patient Medication Summary Completed 04/29/2016 Care Plan: CHEST X-RAY 2VW FRONTAL&LATL LOINC : 46758-3 Pending 04/29/2016 Visit Plan: Sinusitis - Pt [...] spray. 04/21/2016 Appointment: Lakeisha Putnam WPtel: [address] [facility] (15 min) Moderate 04/21/2016 Patient Education: Patient Medication Summary Completed 04/21/2016 Visit Plan: Hypertension - well heike shirleyed - continue with current medications, continue with [...] provided 02/20/2016 Appointment: Nancy Tavares WPtel: [address] [phone] (30 min) Complex 02/20/2016 Patient Education: [...] controlled. 01/01/2016 Appointment: [phone] ([facility] min) Moderate 01/01/2016 Patient Education: Patient [...] of injection. 11/13/2015 App[facility]ment: [facility]el[phone] [phone] (15 min) Moderate 11/13/2015 Patient Education: Patient [...] response to medications. DM-too early for Hgb [id number] to have done next week 11/07/2015 Appointment: Nancy Tavares WPtel: [phone] (15 min) Moderate 11/07/2015 Patient Education: Patient [...] results 08/07/2015 Appointment: [facility]el[facility] [phone] [phone] [place] New Patient 08/07/2015 Patient Education: [...] doing well-due for a new machine-will call [facility] to see what we need to [...] response to medications. DM-too early for Hgb [id number] to have done next week . Hypertension [...] improved sleep, etc. Will fax note to [facility]. . Hypertension - con tinue with [...] TIMES WEEKLY CONTINUE STEROID CREAM ORDERED BY BIAS CUTTER CULTURE RASH LEFT AXILLA . Edema - [...]
--- OUTSIDE RECORDS SUMMARY | 2019-04-11 03:42 | XMS REPORT | CCD ---
Author Author Cesar Tavares Organization Charlene Hoskins MD, [facility] Address [address] [place] [address] Phone Care Team Providers Care Propagation Manager Name Role Phone PP Unavailable CCM Unavailable Summary Purpose Interface Exchange Insurance Providers Payer name Policy type / Coverage type Covered alliance party ID Effective Begin Date Effective End Date WPS Medicare Part B Medicare Part B [id number] Unknown [facility] Part B [id number] Un known Family history Brother Diagnosis Age [...] Retir ed 08/07/[address]: 8340177 Quit over 10 years ago 1970 08/07/[address]: 982023683 Never drinks alcohol 08/07/2015 Allergies, Adverse Reactions, [...] Fill Instructions losartan 50 mg tablet RxNorm: 497228 TAKE 1 TABLET BY MOUTH ONCE DAILY 04/24/2018 No Stop Date Active fluticasone 50 mcg/a ctuation nasal spray,suspension RxNorm: 9025345 USE 2 SPRAY(S) IN EACH NOSTRIL ONCE DAILY 03/27/2018 No Stop Date Active Advair Diskus 250 mc g-50 mcg/dose powder for inhalation RxNorm: 4005769 INHALE 1 DOSE BY MOUTH TWICE DAILY 03/21/2018 No Stop Date Active montelukast 10 mg ta blet RxNorm: 888755 TAKE ONE TABLET BY MO UTH ONCE DAILY 03/15/2018 No Stop Date Active Advair Diskus 250 mc g-50 mcg/dose powder for inhalation RxNorm: 2701055 INHALE 1 DOSE BY MOUTH TWICE DAILY 02/20/2018 03/20/2018 Inactive fluticasone 50 mcg/a ctuation nasal spray,suspension RxNorm: 6948373 USE 2 SPRAY(S) IN EACH NOSTRIL ONCE DAILY 02/08/2018 03/26/2018 Inactive metformin 500 mg tablet RxNorm: 956388 TAKE 1 TABLET BY MOUTH ONCE DAILY 01/16/2018 No Stop Date Active Advair Diskus 250 mc g-50 mcg/dose powder for inhalation RxNorm: 7133326 INHALE 1 DOSE BY MOUTH TWICE DAILY 12/19/2017 02/19/2018 Inactive meloxicam 7.5 mg tablet RxNorm: 863790 TAKE 1 TABLET BY MOUTH ONCE DAILY 12/01/2017 No Stop Date Active simvastatin 20 mg ta blet RxNorm: 189864 TAKE 1 TABLET BY MOUT H ONCE DAILY 11/14/2017 No Stop Date Active losartan 50 mg tablet RxNorm: 553669 TAKE ONE TABLET BY MOUTH ONCE DAILY 10/27/2017 04/23/2018 In active Advair Diskus 250 mc g-50 mcg/dose powder for inhalation RxNorm: 5451920 INHALE 1 DOSE BY MOUTH TWICE DAILY 10/19/2017 12/18/2017 Inactive fluticasone 50 mcg/a ctuation nasal spray,suspension RxNorm: 5291229 USE TWO SPRAY(S) IN EACH NOSTRIL ONCE DAILY 10/19/2017 02/07/2018 Inactive Kenalog 40 mg/mL maggie pension for injection RxNorm: 8524769 1 Milliliter(s) Inj 08/25/2017 08/25/2017 In active meloxicam 7.5 mg tablet RxNorm: 715540 TAKE ONE TABLET BY MOUTH ONCE DAILY 06/06/2017 11/30/2017 In active simvastatin 20 mg ta blet RxNorm: 109189 TAKE ONE TABLET BY MO UTH ONCE DAILY 05/17/2017 11/13/2017 In active metformin 500 mg tablet RxNorm: 798344 TAKE ONE TABLET BY MOUTH ONCE DAILY 05/05/2017 01/15/2018 In active Advair Diskus 250 mc g-50 mcg/dose powder for inhalation RxNorm: 1175081 INHALE ONE DOSE BY MOUTH TWICE DAILY 04/19/2017 10/18/2017 Inactive Tamiflu 75 mg capsule RxNorm: 305023 1 Capsule(s) PO daily 03/25/2017 03/24/2017 Inactive Tamiflu 75 mg capsule RxNorm: 599036 1 Capsule(s) PO daily 03/25/2017 03/31/2017 Inactive montelukast 10 mg ta blet RxNorm: 578056 TAKE ONE TABLET BY MO UTH ONCE DAILY 03/21/2017 03/14/2018 In active losartan 50 mg tablet RxNorm: 994999 TAKE ONE TABLET BY MOUTH ONCE DAILY 01/27/2017 10/26/2017 In active fluticasone 50 mcg/a ctuation nasal spray,suspension RxNorm: 0287807 USE TWO SPRAY(S) IN EACH NOSTRIL ONCE DAILY 01/17/2017 10/18/2017 Inactive meloxicam 7.5 mg tablet RxNorm: 065761 TAKE ONE TABLET BY MOUTH ONCE DAILY 12/06/2016 06/03/2017 In active metformin 500 mg tablet RxNorm: 697641 Tablet(s) TAKE ONE TABLET BY MOUTH TWICE DAILY 11/30/2016 11/24/2017 Inactive simvastatin 20 mg ta blet RxNorm: 389717 TAKE ONE TABLET BY MO UTH ONCE DAILY 11/15/2016 05/13/2017 In active Advair Diskus 250 mc g-50 mcg/dose powder for inhalation RxNorm: 9673918 INHALE ONE PUFF BY MOUTH TWICE DAILY 10/22/2016 04/18/2017 Inactive ketoconazole 2 % [facility] RxNorm: 352719 1 Application TOP TIW 10/04/2016 10/17/2016 Inactive fluticasone 50 mcg/a ctuation nasal spray,suspension RxNorm: 8010819 USE TWO SPRAY(S) IN EACH NOSTRIL ONCE DAILY 09/21/2016 11/19/2016 Inactive montelukast 10 mg ta blet RxNorm: 100506 TAKE ONE TABLET BY MO UTH ONCE DAILY 09/21/2016 03/19/2017 In active losartan 50 mg tablet RxNorm: 521376 TAKE ONE TABLET BY MOUTH ONCE DAILY 08/02/2016 01/26/2017 In active metformin 500 mg tablet RxNorm: 464234 TAKE ONE TABLET BY MOUTH TWICE DAILY 07/22/2016 10/19/2016 In active furosemide 20 mg tablet RxNorm: 587321 1 Tablet(s) PO daily as needed for swell ing 07/21/2016 10/18/2016 Inactive meloxicam 7.5 mg tablet RxNorm: 526035 TAKE ONE TABLET BY MOUTH ONCE DAILY 06/08/2016 12/04/2016 In active cefdinir 300 mg capsule RxNorm: 725348 1 Capsule(s) PO BID 04/29/2016 05/05/2016 Inactive prednisone 20 mg tablet RxNorm: 893838 1 Tablet(s) PO BID 04/29/2016 05/03/2016 Inactive Zithromax Z-Sherif 250 mg tablet RxNorm: 021495 1 Tablet(s) PO UD 04/21/2016 04/28/2016 Inactive Kenalog 40 mg/mL maggie pension for injection RxNorm: 1070506 1 Milliliter(s) Inj 04/21/2016 04/21/2016 In active montelukast 10 mg ta blet RxNorm: 704675 TAKE ONE TABLET BY MO [facility] ONCE DAILY 03/22/2016 09/17/2016 In active fluticasone 50 mcg/a ctuation nasal spray,suspension RxNorm: 9806429 2 [place] NASAL daily each nare 03/15/2016 07/12/2016 Inactive qs metformin 500 mg tablet RxNorm: 084418 1 Tablet(s) PO daily 01/16/2016 2016 Inactive Patient does not need a refill- just upd ate dosing simvastatin 40 mg ta blet RxNorm: 620389 1 Tablet(s) PO daily 01/01/2016 No Stop Date Active Advair Diskus 250 mc g-50 mcg/dose powder for inhalation RxNorm: 6190793 1 INH BID 01/01/2016 04/29/2016 In active Advair Diskus 250 mc g-50 mcg/dose powder for inhalation RxNorm: 8126039 1 INH daily 01/01/2016 12/31/2015 Inactive metformin 500 mg tablet RxNorm: 429533 1 Tablet(s) PO daily 01/01/2016 01/15/2016 Inactive azithromycin 250 mg tablet RxNorm: 314920 1 Tablet(s) PO take t wo pills on day #1, then one pill daily x 4 more days 01/01/2016 02/17/2016 Inactive meloxicam 7.5 mg tablet RxNorm: 392474 1 Tablet(s) PO daily 12/11/2015 06/07/2016 Inactive simvastatin 20 mg ta blet RxNorm: 975037 1 Tablet(s) PO daily 11/21/2015 12/31/2015 Inactive metformin 500 mg tablet RxNorm: 065677 1 Tablet(s) PO BID 11/21/2015 12/31/2015 Inactive Advair Diskus 250 mc g-50 mcg/dose powder for inhalation RxNorm: 0470594 1 INH BID 11/21/2015 12/31/2015 In active montelukast 10 mg ta blet RxNorm: 560456 1 Tablet(s) PO daily 09/25/2015 03/21/2016 Inactive losartan 50 mg tablet RxNorm: 715589 1 Tablet(s) PO daily 09/04/2015 08/01/2016 Inactive Restasis 0.05 % eye drops in a dropperette RxNorm: 436622 1 gtts OPH BID 08/07/2015 No Stop Date Active meloxicam 7.5 mg tablet RxNorm: 957390 1 Tablet(s) PO daily 08/07/2015 09/05/2015 Inactive Kay oral RxNorm: 610107 oral No Start Date Active finasteride 5 mg tablet RxNorm: 409098 1 Tablet(s) PO daily No Start Date Active Zyrtec 10 mg tablet RxNorm: 9701358 1 Tablet(s) PO daily No Start Date Active Co Q-10 200 mg capsule RxNorm: 102604 1 Capsule(s) PO daily No Start Date Active Calcium 500 + D (D3) oral RxNorm: 964222 oral No S tart Date Active simethicone 125 mg c apsule RxNorm: 661212 Capsule(s) PO as needed No Start Date Active Vitamin D3 1,000 uni t tablet RxNorm: 024308 1 Tablet(s) PO daily No Start Date Active omega-3 fatty acids 1,000 mg capsule RxNorm: 4 Capsule(s) PO daily No Start Date Active triamcinolone aceton chasity 0.1 % topical cream RxNorm: 1413306 1 TOP UD No Start Date Active fluticasone 50 mcg/a ctuation nasal spray,suspension RxNorm: 3387023 2 [place] NASAL daily each nare No Start Date 03/14/2016 Inactive losartan 50 mg tablet RxNorm: 397378 1 Tablet(s) PO daily No Start Date 09/03/2015 Inactive metformin 500 mg tablet RxNorm: 115043 1 Tablet(s) PO daily No Start Date 11/20/2015 Inactive simvastatin 40 mg ta blet RxNorm: 009388 1 Tablet(s) PO daily No Start Date 11/20/2015 Inactive furosemide 20 mg tablet RxNorm: 743573 1 Tablet(s) PO daily as needed No Start Date 07/20/2016 Inactive Advair Diskus 250 mc g-50 mcg/dose powder for inhalation RxNorm: 1691730 1 INH daily No Start Date 11/20/2015 Inactive Multiple Vitamin oral RxNorm: 27464 oral No Start Date 12/31/2015 Inactive montelukast 10 mg ta blet RxNorm: 013090 1 Tablet(s) PO daily No Start Date 09/24/2015 Inactive Medication Administered Medication Codes Instruc tions Start Date Status Kenalog 40 mg/mL suspension for injection RxNorm: 3507189 1Milliliter 08/25/2017 N o longer Active Kenalog 40 mg/mL suspension for injection RxNorm: 4215304 1Milliliter 04/21/2016 N o longer Active Immunizations Vaccine Codes Date Status Influenza CVX: 141 12/21 completed Influenza CVX: 141 12/21 completed Pneumococcal (Adult) CVX: 133 11/13/2015 completed Influenza CVX: 141 11/10 completed Pneumococcal CVX: 33 completed Zoster CVX: 121 02/14/20 13 completed Assessments Condition Codes Effectiv e Dates Pain in right knee ICD-10: M25.561 ICD-9: 719.46 12/21/2017 Essential (primary) hypertension ICD -10: I10 ICD-9: 401.1 12/21/2017 Type 2 diabetes mellitus without complications ICD-10: [...] For Visit Effective Dates Notes knee pain 12/21/2017 knee pain 08/25/2017 Annual Medicare Wellness Exam 05/30/2017 hypertension 04/20/2017 hypertension 01/21/2017 vaccination against influenza 12/21/2016 edema 10/22/2016 rash 10/04/2016 hypertension 06/18/2016 Annual Medicare Wellness Exam 05/21/2016 sinus congestion 04/29/2016 sinus congestion 04/21/2016 hypertension 02/20/2016 cough 01/01/2016 knee pain 11/13/2015 vaccination against influenza 11/11/2015 hypertension 11/07/2015 hypertension 08/07/2015 Results Observation Observation Code Item Item Code Result Date %Hba1C Ptp826 % HbA1c 81408-2 6.0 % 12/21/2017 %Hba1C Rxa295 Gluc Ave 126 mg/dL 12/21/2017 %Hba1C Ckr058 % HbA1c 28467-8 6.2 % 04/20/2017 %Hba1C Alz972 Gluc Ave 131 mg/dL 04/20/2017 Cbc With [...] 31.8 pg 04/20/2017 Cbc With Differential Ord2 [place]% 9.3 % 04/20/2017 Cbc With Differential Ord2 [...] 1.82 K/ul 04/20/2017 Cbc With Differential Ord2 [place] ABS# 0.6 K/ul 04/20/2017 Cbc With Differential Ord2 Eos ABS# 0.2 K/ul 04/20/2017 Cbc With Differential Ord2 Baso ABS# 0.0 K/ul 04/20/2017 Comp Metabolic Zex980 NA 141 mEq/L 04/20/2017 Comp Metabolic Rlz687 K 4.5 mEq/L 04/20/2017 Comp Metabolic Ykr490 CL 106 mEq/L 04/20/2017 Comp Metabolic Yft513 CO2 27.0 mEq/L 04/20/2017 Comp Metabolic Eqp777 AN ION GAP 13 04/20/2017 Comp Metabolic Ekn296 GL UCOSE 109 mg/dL 04/20/2017 Comp Metabolic Bie635 Cr eat 1.0 mg/dL 04/20/2017 Comp Metabolic Pnm417 eG FR 81 ml/min/1.73m2 04/20 Comp Metabolic Myn898 BUN 23 mg/dL 04/20/2017 Comp Metabolic Gqd747 B/ C Ratio 24.2 Ratio 04/20/2017 Comp Metabolic Afu088 CA LCIUM 9.3 mg/dL 04/20/2017 Comp Metabolic Aeo197 AL K PHOS 82 U/L 04/20/2017 Comp Metabolic Iqt101 T(SGOT) 22 U/L 04/20/2017 Comp Metabolic Fjm986 AL T(SGPT) 24 U/L 04/20/2017 Comp Metabolic Cyp358 BI LI T 0.4 mg/dL 04/20/2017 Comp Metabolic Fmd936 AL BUMIN 4.3 g/dL 04/20/2017 Comp Metabolic Pww804 TP RO 6.8 g/dL 04/20/2017 Comp Metabolic Hvs643 GL OB 2.5 g/dL 04/20/2017 Comp Metabolic Avo015 A/ G Ratio 1.7 Ratio 04/20/2017 Comp Metabolic Ffj850 Os mo 286 mOsmo 04/20/2017 %Hba1C Wgs523 % HbA1c 65517-8 5.8 % 10/22/2016 %Hba1C Dbm797 Gluc Ave 120 mg/dL 10/22/2016 Cbc With [...] 32.5 pg 10/22/2016 Cbc With Differential Ord2 [place]% 10.3 % 10/22/2016 Cbc With Differential Ord2 [...] 1.85 K/ul 10/22/2016 Cbc With Differential Ord2 [place] ABS# 0.8 K/ul 10/22/2016 Cbc With Differential Ord2 Eos ABS# 0.3 K/ul 10/22/2016 Cbc With Differential Ord2 Baso ABS# 0.0 K/ul 10/22/2016 Comp Metabolic Kll065 NA 141 mEq/L 10/22/2016 Comp Metabolic Cff791 K 4.4 mEq/L 10/22/2016 Comp Metabolic Mmk521 CL 105 mEq/L 10/22/2016 Comp Metabolic Ngy486 CO2 27.0 mEq/L 10/22/2016 Comp Metabolic Heo826 AN ION GAP 13 10/22/2016 Comp Metabolic Ase444 GL UCOSE 103 mg/dL 10/22/2016 Comp Metabolic Ruo292 Cr eat 1.0 mg/dL 10/22/2016 Comp Metabolic Rle365 eG FR 76 ml/min/1.73m2 10/22 Comp Metabolic Ujp931 BUN 27 mg/dL 10/22/2016 Comp Metabolic Axb207 B/ C Ratio 27.0 Ratio 10/22/2016 Comp Metabolic Ycp168 CA LCIUM 9.3 mg/dL 10/22/2016 Comp Metabolic Elu197 AL K PHOS 72 U/L 10/22/2016 Comp Metabolic Afn277 T(SGOT) 23 U/L 10/22/2016 Comp Metabolic Qdq765 AL T(SGPT) 26 U/L 10/22/2016 Comp Metabolic Unh093 BI LI T 0.4 mg/dL 10/22/2016 Comp Metabolic Lzy351 AL BUMIN 4.2 g/dL 10/22/2016 Comp Metabolic Own103 TP RO 6.7 g/dL 10/22/2016 Comp Metabolic Xqu896 GL OB 2.5 g/dL 10/22/2016 Comp Metabolic Pit919 A/ G Ratio 1.6 Ratio 10/22/2016 Comp Metabolic Fba134 Os mo 287 mOsmo 10/22/2016 Comp Metabolic Lhu215 NA 143 mEq/L 06/17/2016 Comp Metabolic Tfh513 K 4.1 mEq/L 06/17/2016 Comp Metabolic Dlc217 CL 108 mEq/L 06/17/2016 Comp Metabolic Jtr078 CO2 28.0 mEq/L 06/17/2016 Comp Metabolic Rrx276 AN ION GAP 11 06/17/2016 Comp Metabolic Aqy095 GL UCOSE 106 mg/dL 06/17/2016 Comp Metabolic Gcf239 Cr eat 0.9 mg/dL 06/17/2016 Comp Metabolic Dav662 eG FR 92 ml/min/1.73m2 06/17 Comp Metabolic Mvp248 BUN 22 mg/dL 06/17/2016 Comp Metabolic Jvo273 B/ C Ratio 25.9 Ratio 06/17/2016 Comp Metabolic Dii069 CA LCIUM 8.8 mg/dL 06/17/2016 Comp Metabolic Cwm184 AL K PHOS 55 U/L 06/17/2016 Comp Metabolic Cxz744 T(SGOT) 21 U/L 06/17/2016 Comp Metabolic Hhw643 AL T(SGPT) 24 U/L 06/17/2016 Comp Metabolic Utw943 BI LI T 0.6 mg/dL 06/17/2016 Comp Metabolic Pqv188 AL BUMIN 4.0 g/dL 06/17/2016 Comp Metabolic Gtm578 TP RO 6.2 g/dL 06/17/2016 Comp Metabolic Yse150 GL OB 2.2 g/dL 06/17/2016 Comp Metabolic Gmz952 A/ G Ratio 1.8 Ratio 06/17/2016 Comp Metabolic Otl406 Os mo 289 mOsmo 06/17/2016 Lipid Ord30 CHOL 163 mg/dL 06/17/2016 Lipid Ord30 HDL 54.0 mg/dl 06/17/2016 Lipid Ord30 TRIG 133 mg/dL 06/17/2016 Lipid Ord30 LDL 82 mg/dL 06/17/2016 Lipid Ord30 C/HDL 3.0 Ratio 06/17/2016 %Hba1C Jzp324 % HbA1c 29361-7 6.0 % 06/17/2016 %Hba1C Ncx117 Gluc Ave 126 mg/dL 06/17/2016 Total Psa [...] 32.7 pg 06/17/2016 Cbc With Differential Ord2 [place]% 10.7 % 06/17/2016 Cbc With Differential Ord2 [...] 1.71 K/ul 06/17/2016 Cbc With Differential Ord2 [place] ABS# 0.6 K/ul 06/17/2016 Cbc With Differential Ord2 Eos ABS# 0.2 K/ul 06/17/2016 Cbc With Differential Ord2 Baso ABS# 0.0 K/ul 06/17/2016 Tsh Ord6 hTSH II 2.91 uIU/mL 06/17/2016 Tsh Ord6 hTSH II 2.45 uIU/mL 02/19/2016 %Hba1C Ndu619 % HbA1c 49200-8 5.8 % 02/19/2016 %Hba1C Zpm634 Gluc Ave 120 mg/dL 02/19/2016 Comp Metabolic Akn329 NA 141 mEq/L 02/19/2016 Comp Metabolic Ses267 K 4.2 mEq/L 02/19/2016 Comp Metabolic Oyo737 CL 107 mEq/L 02/19/2016 Comp Metabolic Oty473 CO2 29.0 mEq/L 02/19/2016 Comp Metabolic Yku692 AN ION GAP 9 02/19/2016 Comp Metabolic Elw352 GL UCOSE 106 mg/dL 02/19/2016 Comp Metabolic Vtt764 Cr eat 0.9 mg/dL 02/19/2016 Comp Metabolic Flq358 eG FR 90 ml/min/1.73m2 02/18 Comp Metabolic Ucd603 BUN 24 mg/dL 02/19/2016 Comp Metabolic Ejy478 B/ C Ratio 27.6 Ratio 02/19/2016 Comp Metabolic Sbj047 CA LCIUM 9.1 mg/dL 02/19/2016 Comp Metabolic Doj683 AL K PHOS 67 U/L 02/19/2016 Comp Metabolic Ipr512 T(SGOT) 25 U/L 02/19/2016 Comp Metabolic Dwz619 AL T(SGPT) 31 U/L 02/19/2016 Comp Metabolic Rds280 BI LI T 0.6 mg/dL 02/19/2016 Comp Metabolic Ppz403 AL BUMIN 4.1 g/dL 02/19/2016 Comp Metabolic Ctu898 TP RO 6.5 g/dL 02/19/2016 Comp Metabolic Ezd206 GL OB 2.4 g/dL 02/19/2016 Comp Metabolic Kij251 A/ G Ratio 1.7 Ratio 02/19/2016 Comp Metabolic Ccy694 Os mo 286 mOsmo 02/19/2016 Cbc With [...] 31.7 pg 02/19/2016 Cbc With Differential Ord2 [place]% 10.5 % 02/19/2016 Cbc With Differential Ord2 [...] 1.59 K/ul 02/19/2016 Cbc With Differential Ord2 [place] ABS# 0.6 K/ul 02/19/2016 Cbc With Differential Ord2 Eos ABS# 0.3 K/ul 02/19/2016 Cbc With Differential Ord2 Baso ABS# 0.0 K/ul 02/19/2016 Lipid Ord30 CHOL 174 mg/dL 02/19/2016 Lipid Ord30 HDL 54.0 mg/dl 02/19/2016 Lipid Ord30 TRIG 110 mg/dL 02/19/2016 Lipid Ord30 LDL 98 mg/dL 02/19/2016 Lipid Ord30 C/HDL 3.2 Ratio 02/19/2016 %Hba1C Ogk931 % HbA1c 06344-9 6.0 % 11/11/2015 %Hba1C Hem904 Gluc Ave 126 mg/dL 11/11/2015 %Hba1C Tbi393 % HbA1c 40698-2 6.0 % 11/07/2015 %Hba1C Ymt874 Gluc Ave 126 mg/dL 11/07/2015 Cbc With [...] 32.0 pg 11/06/2015 Cbc With Differential Ord2 [place]% 9.5 % 11/06/2015 Cbc With Differential Ord2 [...] 1.79 K/ul 11/06/2015 Cbc With Differential Ord2 [place] ABS# 0.6 K/ul 11/06/2015 Cbc With Differential Ord2 Eos ABS# 0.3 K/ul 11/06/2015 Cbc With Differential Ord2 Baso ABS# 0.0 K/ul 11/06/2015 Comp Metabolic Bvx637 NA 141 mEq/L 11/06/2015 Comp Metabolic Zqc199 K 4.3 mEq/L 11/06/2015 Comp Metabolic Clf356 CL 107 mEq/L 11/06/2015 Comp Metabolic Vln406 CO2 28.0 mEq/L 11/06/2015 Comp Metabolic Fux100 AN ION GAP 10 11/06/2015 Comp Metabolic Olq267 GL UCOSE 117 mg/dL 11/06/2015 Comp Metabolic Bpe893 Cr eat 0.9 mg/dL 11/06/2015 Comp Metabolic Eyz534 eG FR 88 ml/min/1.73m2 11/05 Comp Metabolic Yuu815 BUN 22 mg/dL 11/06/2015 Comp Metabolic Uzk746 B/ C Ratio 25.0 Ratio 11/06/2015 Comp Metabolic Zte308 CA LCIUM 9.1 mg/dL 11/06/2015 Comp Metabolic Eio386 AL K PHOS 59 U/L 11/06/2015 Comp Metabolic Ogy348 T(SGOT) 23 U/L 11/06/2015 Comp Metabolic Azz491 AL T(SGPT) 26 U/L 11/06/2015 Comp Metabolic Rzb975 BI LI T 0.6 mg/dL 11/06/2015 Comp Metabolic Ouf955 AL BUMIN 4.0 g/dL 11/06/2015 Comp Metabolic Lif135 TP RO 6.4 g/dL 11/06/2015 Comp Metabolic Biy356 GL OB 2.4 g/dL 11/06/2015 Comp Metabolic Qtg339 A/ G Ratio 1.7 Ratio 11/06/2015 Comp Metabolic Rbn013 Os mo 286 mOsmo 11/06/2015 Tsh Ord6 hTSH II 2.59 uIU/mL 11/06/2015 Lipid Ord30 CHOL 159 mg/dL 11/06/2015 Lipid Ord30 HDL 42.0 mg/dl 11/06/2015 Lipid Ord30 TRIG 129 mg/dL 11/06/2015 Lipid Ord30 LDL 91 mg/dL 11/06/2015 Lipid Ord30 C/HDL 3.8 Ratio 11/06/2015 Comp Metabolic Ecp315 NA 140 mEq/L 08/08/2015 Comp Metabolic Ijj796 K 4.0 mEq/L 08/08/2015 Comp Metabolic Uni649 CL 108 mEq/L 08/08/2015 Comp Metabolic Jpx676 CO2 25.0 mEq/L 08/08/2015 Comp Metabolic Ogw680 AN ION GAP 11 08/08/2015 Comp Metabolic Ntx236 GL UCOSE 100 mg/dL 08/08/2015 Comp Metabolic Jic702 Cr eat 0.9 mg/dL 08/08/2015 Comp Metabolic Nzl956 eG FR 82 ml/min/1.73m2 08/07 Comp Metabolic Gve312 BUN 19 mg/dL 08/08/2015 Comp Metabolic Qgk807 B/ C Ratio 20.2 Ratio 08/08/2015 Comp Metabolic Ujk385 CA LCIUM 8.5 mg/dL 08/08/2015 Comp Metabolic Egb759 AL K PHOS 56 U/L 08/08/2015 Comp Metabolic Cke703 T(SGOT) 18 U/L 08/08/2015 Comp Metabolic Dzq652 AL T(SGPT) 17 U/L 08/08/2015 Comp Metabolic Djq523 BI LI T 0.7 mg/dL 08/08/2015 Comp Metabolic Gbk487 AL BUMIN 3.9 g/dL 08/08/2015 Comp Metabolic Ued946 TP RO 6.2 g/dL 08/08/2015 Comp Metabolic Dqw417 GL OB 2.3 g/dL 08/08/2015 Comp Metabolic Ota154 A/ G Ratio 1.7 Ratio 08/08/2015 Comp Metabolic Rkb318 Os mo 282 mOsmo 08/08/2015 Tsh Ord6 hTSH II 3.19 uIU/mL 08/08/2015 %Hba1C Soc899 % HbA1c 19017-2 5.7 % 08/08/2015 %Hba1C Tcv024 Gluc Ave 117 mg/dL 08/08/2015 Cbc With [...] 31.4 pg 08/08/2015 Cbc With Differential Ord2 [place]% 10.9 % 08/08/2015 Cbc With Differential Ord2 [...] 1.51 K/ul 08/08/2015 Cbc With Differential Ord2 [place] ABS# 0.6 K/ul 08/08/2015 Cbc With Differential Ord2 Eos ABS# 0.2 K/ul 08/08/2015 Cbc With Differential Ord2 Baso ABS# 0.0 K/ul 08/08/2015 Lipid Ord30 CHOL 127 mg/dL 08/08/2015 Lipid Ord30 HDL 34.0 mg/dl 08/08/2015 Lipid Ord30 TRIG 93 mg/dL 08/08/2015 Lipid Ord30 LDL 74 mg/dL 08/08/2015 Lipid Ord30 C/HDL 3.7 Ratio 08/08/2015 Review of Systems System Result Effective Dates Constitutional No recent illness 12/21/2017 Constitutional No [...] accomodation 08/07/2015 None Procedures Procedure Codes Date DRAIN/INJECT JOINT/B URSA CPT-4: 77488 08/25/2017 PPPS, SUBSEQ VISIT CPT- 4: G0439 05/30/2017 ADMIN INFLUENZA VIRU S VAC CPT-4: G0008 12/21/2016 FLU VACC PRSV FREE I NC ANTIG CPT-4: 43614 12/21/2016 PPPS, SUBSEQ VISIT CPT- 4: G0439 05/21/2016 TRIAMCINOLONE ACET I [place] NOS CPT-4: J3301 04/21/2016 THER/PROPH/DIAG INJ SC/IM CPT-4: 21642 04/21/2016 DRAIN/INJECT JOINT/B URSA CPT-4: 05214 11/13/2015 PNEUMOCOCCAL VACC [address]: 91259125 CPT-4: 07951 11/13/2015 ADMIN PNEUMOCOCCAL V ACCINE SNOMED CT: 12336376 CPT-4: G0009 11/13/2015 ADMIN INFLUENZA VIRU S VAC CPT-4: G0008 11/11/2015 FLU VACC 4 AZUL 3 YRS PLUS IM SNOMED CT: 72660787 CPT-4: 66985 11/11/2015 Vital Signs Date Vital 12/21/2017 Blood Pressure 1: 132/56 Code: 8480-6 BMI: 25.7 Code: 53727-8 Heart Rate 1: 58 bpm Height: 5'7" SpO2: 93% Weight: 164 lbs 08/25/2017 Blood Pressure 1: 126/74 Code: 8480-6 BMI: 26.2 Code: 81997-0 Heart Rate 1: 70 bpm Height: 5'7" SpO2: 94% Weight: 167 lbs 05/30/2017 Blood Pressure 1: 120/66 Code: 8480-6 BMI: 26.6 Code: 86209-9 Heart Rate 1: 66 bpm Height: 5'7" SpO2: 95% Waist Measure (cm): 97 cm Weight: 170 lbs 04/20/2017 Blood Pressure 1: 138/78 Code: 8480-6 BMI: 26.6 Code: 27967-0 Heart Rate 1: 86 bpm Height: 5'7" SpO2: 96% Weight: 170 lbs 01/21/2017 Blood Pressure 1: 136/70 Code: 8480-6 BMI: 26.3 Code: 78303-5 Heart Rate 1: 79 bpm Height: 5'7" SpO2: 95% Weight: 168 lbs 10/22/2016 Blood Pressure 1: 134/72 Code: 8480-6 BMI: 26.3 Code: 41068-1 Heart Rate 1: 70 bpm Height: 5'7" SpO2: 95% Weight: 168 lbs 10/04/2016 Blood Pressure 1: 142/80 Code: 8480-6 BMI: 26.6 Code: 23535-9 Heart Rate 1: 72 bpm Height: 5'7" SpO2: 93% Weight: 170 lbs 06/18/2016 Blood Pressure 1: 132/76 Code: 8480-6 BMI: 26.2 Code: 77789-4 Heart Rate 1: 65 bpm Height: 5'7" SpO2: 95% Weight: 167 lbs 8 oz 05/21/2016 Blood Pressure 1: 126/76 Code: 8480-6 BMI: 26.0 Code: 72788-8 Heart Rate 1: 72 bpm Height: 5'7" SpO2: 98% Weight: 166 lbs 04/29/2016 Blood Pressure 1: 128/70 Code: 8480-6 BMI: 25.7 Code: 22476-1 Heart Rate 1: 67 bpm Height: 5'7" SpO2: 97% Temperature: 36.3 (C ) / 97.4 (F) Weight: 164 lbs 04/21/2016 Blood Pressure 1: 130/62 Code: 8480-6 BMI: 26.3 Code: 11295-6 Heart Rate 1: 74 bpm Height: 5'7" SpO2: 96% Temperature: 37.0 (C ) / 98.6 (F) Weight: 168 lbs 02/20/2016 Blood Pressure 1: 120/64 Code: 8480-6 BMI: 26.2 Code: 73095-3 Heart Rate 1: 65 bpm Height: 5'7" SpO2: 94% Weight: 167 lbs 01/01/2016 Blood Pressure 1: 106/60 Code: 8480-6 BMI: 25.7 Code: 89973-7 Heart Rate 1: 73 bpm Height: 5'7" SpO2: 98% Weight: 164 lbs 11/13/2015 Blood Pressure 1: 122/86 Code: 8480-6 BMI: 25.8 Code: 84409-5 Heart Rate 1: 80 bpm Height: 5'7" SpO2: 92% Weight: 165 lbs 11/07/2015 Blood Pressure 1: 118/64 Code: 8480-6 BMI: 25.8 Code: 31490-1 Heart Rate 1: 66 bpm Height: 5'7" SpO2: 95% Weight: 165 lbs 08/07/2015 Blood Pressure 1: 122/80 Code: 8480-6 BMI: 24.4 Code: 62085-7 Heart Rate 1: 74 bpm Height: 5'7" SpO2: 94% Weight: 156 lbs Functional Status No Functional Status data History of Present Illness Symptom Name Status Resu lt Effective Date Notes knee pain Location on th e right [...] Encounters Encounter Performer Loca tion Codes Date 61952 EST. PATIENT, LEVEL IV Diagnosis: Type 2 diabetes mellitus without complications[ICD10: E11.9] Diagnosis: Essential (primary) hypertension[ICD10: I10] Diagnosis: Pain in right knee[ICD10: M25.561] Lakeisha Hoskins MD, [facility] CPT-4: 04847 12/21/2017 [id number] EST. PATIENT, LEVEL IV Diagnosis: Type 2 diabetes mellitus without complications[ICD10: E11.9] Diagnosis: Essential (primary) hypertension[ICD10: I10] Diagnosis: Pain in right knee[ICD10: M25.561] [facility] CPT-4: 96270 08/25/2017 [id number] EST. PATIENT, LEVEL IV Diagnosis: Type 2 diabetes mellitus without complications[ICD10: E11.9] Diagnosis: Essential (primary) hypertension[ICD10: I10] [facility] CPT-4: 82343 04/20/2017 ([id number]) 25422 EST. P ATIENT, LEVEL III Diagnosis: Essential (primary) hypertension[ICD10: I10] Diagnosis: Obstructive sleep apnea (adult) (pediatric)[ICD10: G47.33] Nancy Hoskins MD, [facility] CPT-4: 67380 01/21/2017 ([id number]) 71277 EST. P ATIENT, LEVEL IV Diagnosis: Essential (primary) hypertension[ICD10: I10] Diagnosis: Type 2 diabetes mellitus without complications[ICD10: E11.9] Diagnosis: Obstructive sleep apnea (adult) (pediatric)[ICD10: G47.33] Nancy Hoskins MD, [facility] CPT-4: 90715 10/22/2016 ([id number]) 21581 EST. P ATIENT, LEVEL III Diagnosis: Localized edema[ICD10: R60.0] Diagnosis: Rash and other nonspecific skin eruption[ICD10: R21] Nancy Hoskins MD, [facility] CPT-4: 65045 10/04/2016 ([id number]) 05804 EST. P ATIENT, LEVEL IV Diagnosis: Essential (primary) hypertension[ICD10: I10] Diagnosis: Type 2 diabetes mellitus without complications[ICD10: E11.9] Diagnosis: Mixed hyperlipidemia[ICD10: E78.2] Nancy Hoskins MD, [facility] CPT-4: 30556 06/18/2016 ([id number]) 76949 EST. P ATIENT, LEVEL III Diagnosis: Cough[ICD10: R05] Diagnosis: Acute bronchitis, unspecified[ICD10: J20.9] Nancy Hoskins MD, [facility] CPT-4: 03869 04/29/2016 41731 EST. PATIENT, LEVEL IV Diagnosis: Other acute sinusitis[ICD10: J01.80] Diagnosis: Other allergic rhinitis[ICD10: J30.89] Lakeisha Hoskins MD, [facility] CPT-4: 32812 04/21/2016 ([id number]) 36566 EST. P ATIENT, LEVEL IV Diagnosis: Essential (primary) hypertension[ICD10: I10] Diagnosis: Type 2 diabetes mellitus without complications[ICD10: E11.9] Diagnosis: Mixed hyperlipidemia[ICD10: E78.2] Diagnosis: Primary generalized (osteo)arthritis[ICD10: M15.0] Nancy Hoskins MD, [facility] CPT-4: 87111 02/20/2016 ([id number]) 57663 EST. P ATIENT, LEVEL IV Diagnosis: Cough[ICD10: R05] Diagnosis: Acute bronchitis due to Hemophilus influenzae[ICD10: J20.1] Diagnosis: Type 2 diabetes mellitus without complications[ICD10: E11.9] Diagnosis: Essential (primary) hypertension[ICD10: I10] Charlene Hoskins MD [facility] CPT-4: 67875 01/01/2016 ([id number]) 99383 EST. P ATIENT, LEVEL IV Diagnosis: Essential (primary) hypertension[ICD10: I10] Diagnosis: Mixed hyperlipidemia[ICD10: E78.2] Diagnosis: Type 2 diabetes mellitus without complications[ICD10: E11.9] Nancy Hoskins MD, [facility] CPT-4: 24067 11/07/2015 OFFICE VISIT, NEW - LEVEL 4 Diagnosis: Type 2 diabetes mellitus without complications[ICD10: E11.9] Diagnosis: Essential (primary) hypertension[ICD10: I10] Diagnosis: Mixed hyperlipidemia[ICD10: E78.2] Diagnosis: Elevated prostate specific antigen [PSA][ICD10: R97.2] Nancy Hoskins MD, [facility] CPT-4: 28472 08/07/2015 Plan of Care Planned Activity Notes [...] improve. 12/21/2017 [phone] ([facility] min) Moderate 12/21/2017 Patient Education: [...] injection. 08/25/2017 App[facility]ment[phone] (15 min) Moderate 08/25/2017 Patient Education: [...] Summary Completed 05/30/2017 Appointment: Lakeisha Putnam WPtel: [facility] [phone] [facility] - Annual Wellness Visit 05/27/2017 Appointment: Nancy Tavares WPtel: [facility] [phone] (30 min) Complex 04/22/2017 Visit Plan: Hypertension [...] less controlled. 04/20/2017 Appointment: Lakeisha Putnam WPtel: [facility] [phone] (30 min) Complex 04/20/2017 Patient Education: Patient [...] CARE SYSTEM. 01/21/2017 Appointment: Nancy [facility]avares WPtel[facility] [phone] ([facility] min) Complex 01/21/2017 Appointment: Nancy Tavares WPtel: [facility] [phone] (30 min) Complex 01/21/2017 Patient Education: Patient [...] machine. 10/22/2016 Appointment: Nancy Tavares WPtel: [phone] (30 min) Complex 10/22/2016 Patient Education: Patient [...] plan. 10/04/2016 Appointment: Nancy Tavares WPtel: [phone] [phone] (15 min) Moderate 10/04/2016 Patient Education: Patient [...] me dications. 06/18/2016 Appointment: [facility]avares [facility]Ptel[facility] [phone] (15 min) Moderate 06/18/2016 Patient Education: [...] acutely worsen. 04/29/2016 Appointment: Nancy Tavares WPtel: [address] [place], [place] [phone] (15 min) Moderate 04/29/2016 Patient Education: Patient Medication Summary Completed 04/29/2016 Care Plan: CHEST X-RAY 2VW FRONTAL&LATL LOINC : 53707-9 Pending 04/29/2016 Visit Plan: Sinusitis - Pt [...] allergy spray. 04/21/2016 Appointment: Lake[facility] Putnam [facility] [phone] [phone] (15 min) Moderate 04/21/2016 Patient Education: [...] provided 02/20/2016 App[facility]ment: [phone] [phone] (30 min) Complex 02/20/2016 Patient Education: Patient [...] controlled. 01/01/2016 App[facility]ment: [phone] (15 min) Moderate 01/01/2016 Patient Education: [...] 11/13/2015 Visit Plan: Joint Injection - Pt veronica callahan given post - injection instructions. The pt has been advised to use anti-inflammatories post injection today, ice to the injected site, call if redness, warmth, or increased pain occurs at the site of injection. 11/13/2015 Appointment: Nancy Tavares WPtel: [phone] [phone] (15 min) Moderate 11/13/2015 Patient Education: Patient Medication Summary Completed 11/13/2015 Appointment: Injection 11/11/2015 Patient Education: Patient Medication Summary Completed 11/11/2015 Visit Plan: Hypertension - crow zayas - [...] response to medications. DM-too early for Hgb [id number]-cytpitm to have done next week 11/07/2015 Appointment: Nancy Tavares WPtel[facility] [phone] (15 min) Moderate 11/07/2015 Patient Education: Patient Medication Summary Completed 11/07/2015 Visit Plan: Diabetes Mellitus - con chana - per recent FSBS reports. I have [...] biopsy results 08/07/2015 Appointment: Nancy Tavares WPtel[facility] [phone] New Patient 08/07/2015 Patient Education: Patient Medication Summary Completed 08/07/2015 Instructions Comment CXR STOP SYMBICORT TWO PUFFS BID . [...] response to medications. DM-too early for Hgb [id number]-[id number] to have done next week . Hypertension [...] TIMES WEEKLY CONTINUE STEROID CREAM ORDERED BY SIDEWALK INSPECTOR CULTURE RASH LEFT AXILLA . Edema - [...]
--- OUTSIDE RECORDS SUMMARY | 2019-04-11 03:43 | XMS REPORT | CCD ---
Author Author Cesar Tavares Organization Charlene Hoskins MD, [facility] Address [address] [place] [address] Phone Care Team Providers Care Watch Repair Technician Name Role Phone PP Unavailable CCM Unavailable Summary Purpose Interface Exchange Insurance Providers Payer name Policy type / Coverage type Covered republican ID Effective Begin Date Effective End Date WPS Medicare Part B Medicare Part B [id number] Unknown [facility] Part B [id number] Un known Family history Brother Diagnosis Age [...] Retir ed 08/07/[address]: 1578507 Quit over 10 years ago 1970 08/07/[address]: 500198113 Never drinks alcohol 08/07/2015 Allergies, Adverse Reactions, [...] Date Stop Date Sta tus Fill Instructions fluticasone 50 mcg/a ctuation nasal spray,suspension RxNorm: 2114735 USE 2 SPRAY(S) IN EACH NOSTRIL ONCE DAILY 03/27/2018 No Stop Date Active Advair Diskus 250 mc g-50 mcg/dose powder for inhalation RxNorm: 7000008 INHALE 1 DOSE BY MOUTH TWICE DAILY 03/21/2018 No Stop Date Active montelukast 10 mg ta blet RxNorm: 936356 TAKE ONE TABLET BY MO UTH ONCE DAILY 03/15/2018 No Stop Date Active Advair Diskus 250 mc g-50 mcg/dose powder for inhalation RxNorm: 0120988 INHALE 1 DOSE BY MOUTH TWICE DAILY 02/20/2018 03/20/2018 Inactive fluticasone 50 mcg/a ctuation nasal spray,suspension RxNorm: 4888458 USE 2 SPRAY(S) IN EACH NOSTRIL ONCE DAILY 02/08/2018 03/26/2018 Inactive metformin 500 mg tablet RxNorm: 881717 TAKE 1 TABLET BY MOUTH ONCE DAILY 01/16/2018 No Stop Date Active Advair Diskus 250 mc g-50 mcg/dose powder for inhalation RxNorm: 2514348 INHALE 1 DOSE BY MOUTH TWICE DAILY 12/19/2017 02/19/2018 Inactive meloxicam 7.5 mg tablet RxNorm: 152744 TAKE 1 TABLET BY MOUTH ONCE DAILY 12/01/2017 No Stop Date Active simvastatin 20 mg ta blet RxNorm: 828057 [facility] 11/14/2017 No Stop Date Active losartan 50 mg tablet RxNorm: 704606 TAKE ONE TABLET BY MOUTH ONCE DAILY 10/27/2017 No Stop Date Active Advair Diskus 250 mc g-50 mcg/dose powder for inhalation RxNorm: 9124034 INHALE 1 DOSE BY MOUTH TWICE DAILY 10/19/2017 12/18/2017 Inactive fluticasone 50 mcg/a ctuation nasal spray,suspension RxNorm: 3988834 USE TWO SPRAY(S) IN EACH NOSTRIL ONCE DAILY 10/19/2017 02/07/2018 Inactive Kenalog 40 mg/mL [facility] pension for injection RxNorm: 9723030 1 Milliliter(s) Inj 08/25/2017 08/25/2017 In active meloxicam 7.5 mg tablet RxNorm: 299032 TAKE ONE TABLET BY MOUTH ONCE DAILY 06/06/2017 11/30/2017 In active simvastatin 20 mg ta blet RxNorm: 150356 TAKE ONE TABLET BY MO [facility] ONCE DAILY 05/17/2017 11/13/2017 In active metformin 500 mg tablet RxNorm: 653268 TAKE ONE TABLET BY MOUTH ONCE DAILY 05/05/2017 01/15/2018 In active Advair Diskus 250 mc g-50 mcg/dose powder for inhalation RxNorm: 1577153 INHALE ONE DOSE BY MOUTH TWICE DAILY 04/19/2017 10/18/2017 Inactive Tamiflu 75 mg capsule RxNorm: 288917 1 Capsule(s) PO daily 03/25/2017 03/24/2017 Inactive Tamiflu 75 mg capsule RxNorm: 644475 1 Capsule(s) PO daily 03/25/2017 03/31/2017 Inactive montelukast 10 mg ta blet RxNorm: 512268 TAKE ONE TABLET BY MO UTH ONCE DAILY 03/21/2017 03/14/2018 In active losartan 50 mg tablet RxNorm: 194020 TAKE ONE TABLET BY MOUTH ONCE DAILY 01/27/2017 10/26/2017 In active fluticasone 50 mcg/a ctuation nasal spray,suspension RxNorm: 3489858 USE TWO SPRAY(S) IN EACH NOSTRIL ONCE DAILY 01/17/2017 10/18/2017 Inactive meloxicam 7.5 mg tablet RxNorm: 264963 TAKE ONE TABLET BY MOUTH ONCE DAILY 12/06/2016 06/03/2017 In active metformin 500 mg tablet RxNorm: 361721 Tablet(s) TAKE ONE TABLET BY MOUTH TWICE DAILY 11/30/2016 11/24/2017 Inactive simvastatin 20 mg ta blet RxNorm: 721911 TAKE ONE TABLET BY MO UTH ONCE DAILY 11/15/2016 05/13/2017 In active Advair Diskus 250 mc g-50 mcg/dose powder for inhalation RxNorm: 5683658 INHALE ONE PUFF BY MOUTH TWICE DAILY 10/22/2016 04/18/2017 Inactive ketoconazole 2 % [facility] RxNorm: 749383 1 Application TOP TIW 10/04/2016 10/17/2016 Inactive fluticasone 50 mcg/a ctuation nasal spray,suspension RxNorm: 4448294 USE TWO SPRAY(S) IN EACH NOSTRIL ONCE DAILY 09/21/2016 11/19/2016 Inactive montelukast 10 mg ta blet RxNorm: 851277 TAKE ONE TABLET BY MO UTH ONCE DAILY 09/21/2016 03/19/2017 In active losartan 50 mg tablet RxNorm: 618776 TAKE ONE TABLET BY MOUTH ONCE DAILY 08/02/2016 01/26/2017 In active metformin 500 mg tablet RxNorm: 724599 TAKE ONE TABLET BY MOUTH TWICE DAILY 07/22/2016 10/19/2016 In active furosemide 20 mg tablet RxNorm: 865134 1 Tablet(s) PO daily as needed for swell ing 07/21/2016 10/18/2016 Inactive meloxicam 7.5 mg tablet RxNorm: 513240 TAKE ONE TABLET BY MOUTH ONCE DAILY 06/08/2016 12/04/2016 In active cefdinir 300 mg capsule RxNorm: 779738 1 Capsule(s) PO BID 04/29/2016 05/05/2016 Inactive prednisone 20 mg tablet RxNorm: 978054 1 Tablet(s) PO BID 04/29/2016 05/03/2016 Inactive Zithromax Z-Sherif 250 mg tablet RxNorm: 908590 1 Tablet(s) PO UD 04/21/2016 04/28/2016 Inactive Kenalog 40 mg/mL maggie pension for injection RxNorm: 2060747 1 Milliliter(s) Inj 04/21/2016 04/21/2016 In active montelukast 10 mg ta blet RxNorm: 183386 TAKE ONE TABLET BY MO [facility] ONCE DAILY 03/22/2016 09/17/2016 In active fluticasone 50 mcg/a ctuation nasal spray,suspension RxNorm: 7896228 2 [place] NASAL daily each nare 03/15/2016 07/12/2016 Inactive qs metformin 500 mg tablet RxNorm: 416114 1 Tablet(s) PO daily 01/16/2016 2016 Inactive Patient does not need a refill- just upd ate dosing simvastatin 40 mg ta blet RxNorm: 889558 1 Tablet(s) PO daily 01/01/2016 No Stop Date Active Advair Diskus 250 mc g-50 mcg/dose powder for inhalation RxNorm: 6713934 1 INH BID 01/01/2016 04/29/2016 In active Advair Diskus 250 mc g-50 mcg/dose powder for inhalation RxNorm: 1796890 1 INH daily 01/01/2016 12/31/2015 Inactive metformin 500 mg tablet RxNorm: 209485 1 Tablet(s) PO daily 01/01/2016 01/15/2016 Inactive azithromycin 250 mg tablet RxNorm: 971108 1 Tablet(s) PO take t wo pills on day #1, then one pill daily x 4 more days 01/01/2016 02/17/2016 Inactive meloxicam 7.5 mg tablet RxNorm: 184358 1 Tablet(s) PO daily 12/11/2015 06/07/2016 Inactive simvastatin 20 mg ta blet RxNorm: 027603 1 Tablet(s) PO daily 11/21/2015 12/31/2015 Inactive metformin 500 mg tablet RxNorm: 744537 1 Tablet(s) PO BID 11/21/2015 12/31/2015 Inactive Advair Diskus 250 mc g-50 mcg/dose powder for inhalation RxNorm: 0821986 1 INH BID 11/21/2015 12/31/2015 In active montelukast 10 mg ta blet RxNorm: 392127 1 Tablet(s) PO daily 09/25/2015 03/21/2016 Inactive losartan 50 mg tablet RxNorm: 412095 1 Tablet(s) PO daily 09/04/2015 08/01/2016 Inactive Restasis 0.05 % eye drops in a dropperette RxNorm: 881728 1 gtts OPH BID 08/07/2015 No Stop Date Active meloxicam 7.5 mg tablet RxNorm: 773409 1 Tablet(s) PO daily 08/07/2015 09/05/2015 Inactive Kay oral RxNorm: 744633 oral No Start Date Active finasteride 5 mg tablet RxNorm: 394147 1 Tablet(s) PO daily No Start Date Active Zyrtec 10 mg tablet RxNorm: 9864782 1 Tablet(s) PO daily No Start Date Active Co Q-10 200 mg capsule RxNorm: 546655 1 Capsule(s) PO daily No Start Date Active Calcium 500 + D (D3) oral RxNorm: 635258 oral No S tart Date Active simethicone 125 mg c apsule RxNorm: 568281 Capsule(s) PO as needed No Start Date Active Vitamin D3 1,000 uni t tablet RxNorm: 452222 1 Tablet(s) PO daily No Start Date Active omega-3 fatty acids 1,000 mg capsule RxNorm: 4 Capsule(s) PO daily No Start Date Active triamcinolone aceton chasity 0.1 % topical cream RxNorm: 0484003 1 TOP UD No Start Date Active fluticasone 50 mcg/a ctuation nasal spray,suspension RxNorm: 9796489 2 [place] NASAL daily each nare No Start Date 03/14/2016 Inactive losartan 50 mg tablet RxNorm: 364515 1 Tablet(s) PO daily No Start Date 09/03/2015 Inactive metformin 500 mg tablet RxNorm: 179325 1 Tablet(s) PO daily No Start Date 11/20/2015 Inactive simvastatin 40 mg ta blet RxNorm: 745565 1 Tablet(s) PO daily No Start Date 11/20/2015 Inactive furosemide 20 mg tablet RxNorm: 496515 1 Tablet(s) PO daily as needed No Start Date 07/20/2016 Inactive Advair Diskus 250 mc g-50 mcg/dose powder for inhalation RxNorm: 8816157 1 INH daily No Start Date 11/20/2015 Inactive Multiple Vitamin oral RxNorm: 56225 oral No Start Date 12/31/2015 Inactive montelukast 10 mg ta blet RxNorm: 714850 1 Tablet(s) PO daily No Start Date 09/24/2015 Inactive Medication Administered Medication Codes Instruc tions Start Date Status Kenalog 40 mg/mL suspension for injection RxNorm: 3636677 1Milliliter 08/25/2017 N o longer Active Kenalog 40 mg/mL suspension for injection RxNorm: 7681858 1Milliliter 04/21/2016 N o longer Active Immunizations [...] Localized edema ICD-10: R60.0 ICD-9: 782.3 10/04/2016 Rash and other nonspecific skin eruption ICD-10: R21 ICD-9: 782.1 10/04/2016 Mixed hyperlipidemia ICD-10: E78.2 ICD-9: 272.2 [...] Code Item Item Code Result Date %Hba1C Ccn280 % HbA1c 29725-6 6.0 % 12/21/2017 %Hba1C Kdz439 Gluc Ave 126 mg/dL 12/21/2017 Comp Metabolic Qve740 NA 141 mEq/L 04/20/2017 Comp Metabolic Byk094 K 4.5 mEq/L 04/20/2017 Comp Metabolic Cxx350 CL 106 mEq/L 04/20/2017 Comp Metabolic Atv096 CO2 27.0 mEq/L 04/20/2017 Comp Metabolic Tdk815 AN ION GAP 13 04/20/2017 Comp Metabolic Kul058 GL UCOSE 109 mg/dL 04/20/2017 Comp Metabolic Msn546 Cr eat 1.0 mg/dL 04/20/2017 Comp Metabolic Xkj421 eG FR 81 ml/min/1.73m2 04/20 Comp Metabolic Dyq920 BUN 23 mg/dL 04/20/2017 Comp Metabolic Nil514 B/ C Ratio 24.2 Ratio 04/20/2017 Comp Metabolic Smd954 CA LCIUM 9.3 mg/dL 04/20/2017 Comp Metabolic Yrk510 AL K PHOS 82 U/L 04/20/2017 Comp Metabolic Wld547 T(SGOT) 22 U/L 04/20/2017 Comp Metabolic Eci934 AL T(SGPT) 24 U/L 04/20/2017 Comp Metabolic Aei989 BI LI T 0.4 mg/dL 04/20/2017 Comp Metabolic Mjr050 AL BUMIN 4.3 g/dL 04/20/2017 Comp Metabolic Zjv060 TP RO 6.8 g/dL 04/20/2017 Comp Metabolic Oor538 GL OB 2.5 g/dL 04/20/2017 Comp Metabolic Pzo656 A/ G Ratio 1.7 Ratio 04/20/2017 Comp Metabolic Abg165 Os mo 286 mOsmo 04/20/2017 Cbc With Differential Ord2 WBC 6.58 [...] 31.8 pg 04/20/2017 Cbc With Differential Ord2 [place]% 9.3 % 04/20/2017 Cbc With Differential Ord2 Eos% 3.2 % 04/20/2017 Cbc With Differential Ord2 MCHC 33.8 pg 04/20/2017 Cbc With Differential Ord2 Baso% 0.3 % 04/20/2017 Cbc With Differential Ord2 PLT 236 K/ul 04/20/2017 Cbc With Differential Ord2 Neut ABS# 3.92 K/ul 04/20/2017 Cbc With Differential Ord2 RDW 13.3 % 04/20/2017 Cbc With Differential Ord2 Lymph ABS# 1.82 K/ul 04/20/2017 Cbc With Differential Ord2 [place] ABS# 0.6 K/ul 04/20/2017 Cbc With Differential Ord2 Eos ABS# 0.2 K/ul 04/20/2017 Cbc With Differential Ord2 Baso ABS# 0.0 K/ul 04/20/2017 %Hba1C Jhr806 % HbA1c 27489-2 6.2 % 04/20/2017 %Hba1C Mmz301 Gluc Ave 131 mg/dL 04/20/2017 Comp Metabolic Dbh855 NA 141 mEq/L 10/22/2016 Comp Metabolic Naz062 K 4.4 mEq/L 10/22/2016 Comp Metabolic Krf109 CL 105 mEq/L 10/22/2016 Comp Metabolic Ulq478 CO2 27.0 mEq/L 10/22/2016 Comp Metabolic Fju743 AN ION GAP 13 10/22/2016 Comp Metabolic Fwt960 GL UCOSE 103 mg/dL 10/22/2016 Comp Metabolic Ayp496 Cr eat 1.0 mg/dL 10/22/2016 Comp Metabolic Qmh308 eG FR 76 ml/min/1.73m2 10/22 Comp Metabolic Jer871 BUN 27 mg/dL 10/22/2016 Comp Metabolic Jfg408 B/ C Ratio 27.0 Ratio 10/22/2016 Comp Metabolic Rgz685 CA LCIUM 9.3 mg/dL 10/22/2016 Comp Metabolic Pcf407 AL K PHOS 72 U/L 10/22/2016 Comp Metabolic Sbj926 T(SGOT) 23 U/L 10/22/2016 Comp Metabolic Xpy434 AL T(SGPT) 26 U/L 10/22/2016 Comp Metabolic Oyj161 BI LI T 0.4 mg/dL 10/22/2016 Comp Metabolic Xdr173 AL BUMIN 4.2 g/dL 10/22/2016 Comp Metabolic Gyl601 TP RO 6.7 g/dL 10/22/2016 Comp Metabolic Eod323 GL OB 2.5 g/dL 10/22/2016 Comp Metabolic Qhu973 A/ G Ratio 1.6 Ratio 10/22/2016 Comp Metabolic Swi773 Os mo 287 mOsmo 10/22/2016 Cbc With Differential Ord2 WBC 7.27 K/ul 10/22/2016 Cbc With Differential Ord2 RBC 4.09 M/ul 10/22/2016 Cbc With Differential Ord2 HGB 13.3 g/dl 10/22/2016 Cbc With Differential Ord2 Neut% 60.6 % 10/22/2016 Cbc With Differential Ord2 HCT 39.4 % 10/22/2016 Cbc With Differential Ord2 Lymph% 25.4 % 10/22/2016 Cbc With Differential Ord2 MCV 96.3 fl 10/22/2016 Cbc With Differential Ord2 [place]% 10.3 % 10/22/2016 Cbc With Differential Ord2 MCH 32.5 pg 10/22/2016 Cbc With Differential Ord2 Eos% 3.4 % 10/22/2016 Cbc With Differential Ord2 MCHC 33.8 pg 10/22/2016 Cbc With Differential Ord2 Baso% 0.3 % 10/22/2016 Cbc With Differential Ord2 PLT 227 K/ul 10/22/2016 Cbc With Differential Ord2 Neut ABS# 4.40 K/ul 10/22/2016 Cbc With Differential Ord2 RDW 13.4 % 10/22/2016 Cbc With Differential Ord2 Lymph ABS# 1.85 K/ul 10/22/2016 Cbc With Differential Ord2 [place] ABS# 0.8 K/ul 10/22/2016 Cbc With Differential Ord2 Eos ABS# 0.3 K/ul 10/22/2016 Cbc With Differential Ord2 Baso ABS# 0.0 K/ul 10/22/2016 %Hba1C Pjd623 % HbA1c 14105-8 5.8 % 10/22/2016 %Hba1C Qkz527 Gluc Ave 120 mg/dL 10/22/2016 Tsh Ord6 hTSH II 2.91 uIU/mL 06/17/2016 [...] 95.5 fl 06/17/2016 Cbc With Differential Ord2 [place]% 10.7 % 06/17/2016 Cbc With Differential Ord2 MCH 32.7 pg 06/17/2016 Cbc With Differential Ord2 MCHC 34.2 pg 06/17/2016 Cbc With Differential Ord2 Eos% 3.3 % 06/17/2016 Cbc With Differential Ord2 PLT 211 K/ul 06/17/2016 Cbc With Differential Ord2 Baso% 0.2 % 06/17/2016 Cbc With Differential Ord2 RDW 14.1 % 06/17/2016 Cbc With Differential Ord2 Neut ABS# 3.25 K/ul 06/17/2016 Cbc With Differential Ord2 Lymph ABS# 1.71 K/ul 06/17/2016 Cbc With Differential Ord2 [place] ABS# 0.6 K/ul 06/17/2016 Cbc With Differential Ord2 Eos ABS# 0.2 K/ul 06/17/2016 Cbc With Differential Ord2 Baso ABS# 0.0 K/ul 06/17/2016 Total Psa Ord10 PSA 0.00 ng/mL 06/17/2016 %Hba1C Zyd835 % HbA1c 93017-1 6.0 % 06/17/2016 %Hba1C Qqw131 Gluc Ave 126 mg/dL 06/17/2016 Lipid Ord30 CHOL 163 mg/dL 06/17/2016 Lipid Ord30 HDL 54.0 mg/dl 06/17/2016 Lipid Ord30 TRIG 133 mg/dL 06/17/2016 Lipid Ord30 LDL 82 mg/dL 06/17/2016 Lipid Ord30 C/HDL 3.0 Ratio 06/17/2016 Comp Metabolic Xzx952 NA 143 mEq/L 06/17/2016 Comp Metabolic Lzv347 K 4.1 mEq/L 06/17/2016 Comp Metabolic Lek273 CL 108 mEq/L 06/17/2016 Comp Metabolic Vfw442 CO2 28.0 mEq/L 06/17/2016 Comp Metabolic Jnq454 AN ION GAP 11 06/17/2016 Comp Metabolic Uug610 GL UCOSE 106 mg/dL 06/17/2016 Comp Metabolic Llp666 Cr eat 0.9 mg/dL 06/17/2016 Comp Metabolic Vru173 eG FR 92 ml/min/1.73m2 06/17 Comp Metabolic Wtw668 BUN 22 mg/dL 06/17/2016 Comp Metabolic Xvc745 B/ C Ratio 25.9 Ratio 06/17/2016 Comp Metabolic Fxk329 CA LCIUM 8.8 mg/dL 06/17/2016 Comp Metabolic Had496 AL K PHOS 55 U/L 06/17/2016 Comp Metabolic Ujz695 T(SGOT) 21 U/L 06/17/2016 Comp Metabolic Gyz805 AL T(SGPT) 24 U/L 06/17/2016 Comp Metabolic Nvw090 BI LI T 0.6 mg/dL 06/17/2016 Comp Metabolic Qws606 AL BUMIN 4.0 g/dL 06/17/2016 Comp Metabolic Tcv675 TP RO 6.2 g/dL 06/17/2016 Comp Metabolic Wxg637 GL OB 2.2 g/dL 06/17/2016 Comp Metabolic Kmv561 A/ G Ratio 1.8 Ratio 06/17/2016 Comp Metabolic Ufs247 Os mo 289 mOsmo 06/17/2016 %Hba1C Kro772 % HbA1c 46553-3 5.8 % 02/19/2016 %Hba1C Mfv113 Gluc Ave 120 mg/dL 02/19/2016 Tsh Ord6 hTSH II 2.45 uIU/mL 02/19/2016 Comp Metabolic Weh149 NA 141 mEq/L 02/19/2016 Comp Metabolic Tza991 K 4.2 mEq/L 02/19/2016 Comp Metabolic Gqs148 CL 107 mEq/L 02/19/2016 Comp Metabolic Cxw064 CO2 29.0 mEq/L 02/19/2016 Comp Metabolic Rbu647 AN ION GAP 9 02/19/2016 Comp Metabolic Etn782 GL UCOSE 106 mg/dL 02/19/2016 Comp Metabolic Tgi379 Cr eat 0.9 mg/dL 02/19/2016 Comp Metabolic Iev361 eG FR 90 ml/min/1.73m2 02/18 Comp Metabolic Lqe459 BUN 24 mg/dL 02/19/2016 Comp Metabolic Udq161 B/ C Ratio 27.6 Ratio 02/19/2016 Comp Metabolic Cfa253 CA LCIUM 9.1 mg/dL 02/19/2016 Comp Metabolic Stf882 AL K PHOS 67 U/L 02/19/2016 Comp Metabolic Rhe776 T(SGOT) 25 U/L 02/19/2016 Comp Metabolic Xcr682 AL T(SGPT) 31 U/L 02/19/2016 Comp Metabolic Xyi184 BI LI T 0.6 mg/dL 02/19/2016 Comp Metabolic Mwv852 AL BUMIN 4.1 g/dL 02/19/2016 Comp Metabolic Kpt810 TP RO 6.5 g/dL 02/19/2016 Comp Metabolic Wsd755 GL OB 2.4 g/dL 02/19/2016 Comp Metabolic Zvk688 A/ G Ratio 1.7 Ratio 02/19/2016 Comp Metabolic Ymc545 Os mo 286 mOsmo 02/19/2016 Cbc With [...] 31.7 pg 02/19/2016 Cbc With Differential Ord2 [place]% 10.5 % 02/19/2016 Cbc With Differential Ord2 Eos% 5.1 % 02/19/2016 Cbc With Differential Ord2 MCHC 33.3 pg 02/19/2016 Cbc With Differential Ord2 Baso% 0.3 % 02/19/2016 Cbc With Differential Ord2 PLT 239 K/ul 02/19/2016 Cbc With Differential Ord2 RDW 13.4 % 02/19/2016 Cbc With Differential Ord2 Neut ABS# 3.39 K/ul 02/19/2016 Cbc With Differential Ord2 Lymph ABS# 1.59 K/ul 02/19/2016 Cbc With Differential Ord2 [place] ABS# 0.6 K/ul 02/19/2016 Cbc With Differential Ord2 Eos ABS# 0.3 K/ul 02/19/2016 Cbc With Differential Ord2 Baso ABS# 0.0 K/ul 02/19/2016 Lipid Ord30 CHOL 174 mg/dL 02/19/2016 Lipid Ord30 HDL 54.0 mg/dl 02/19/2016 Lipid Ord30 TRIG 110 mg/dL 02/19/2016 Lipid Ord30 LDL 98 mg/dL 02/19/2016 Lipid Ord30 C/HDL 3.2 Ratio 02/19/2016 %Hba1C Iow819 % HbA1c 29768-7 6.0 % 11/11/2015 %Hba1C Pet921 Gluc Ave 126 mg/dL 11/11/2015 %Hba1C Wvq000 % HbA1c 53213-5 6.0 % 11/07/2015 %Hba1C Dub452 Gluc Ave 126 mg/dL 11/07/2015 Cbc With Differential Ord2 WBC 5.97 K/ul 11/06/2015 Cbc With Differential Ord2 RBC 4.19 M/ul 11/06/2015 Cbc With Differential Ord2 HGB 13.4 g/dl 11/06/2015 Cbc With Differential Ord2 HCT 39.3 % 11/06/2015 Cbc With Differential Ord2 Neut% 55.0 % 11/06/2015 Cbc With Differential Ord2 Lymph% 30.0 % 11/06/2015 Cbc With Differential Ord2 MCV 93.8 fl 11/06/2015 Cbc With Differential Ord2 [place]% 9.5 % 11/06/2015 Cbc With Differential Ord2 [...] 1.79 K/ul 11/06/2015 Cbc With Differential Ord2 [place] ABS# 0.6 K/ul 11/06/2015 Cbc With Differential Ord2 Eos ABS# 0.3 K/ul 11/06/2015 Cbc With Differential Ord2 Baso ABS# 0.0 K/ul 11/06/2015 Comp Metabolic Gtx002 NA 141 mEq/L 11/06/2015 Comp Metabolic Hhe958 K 4.3 mEq/L 11/06/2015 Comp Metabolic Mky799 CL 107 mEq/L 11/06/2015 Comp Metabolic Uki228 CO2 28.0 mEq/L 11/06/2015 Comp Metabolic Qxr910 AN ION GAP 10 11/06/2015 Comp Metabolic Xxq336 GL UCOSE 117 mg/dL 11/06/2015 Comp Metabolic Xwk708 Cr eat 0.9 mg/dL 11/06/2015 Comp Metabolic Tot700 eG FR 88 ml/min/1.73m2 11/05 Comp Metabolic Ylv652 BUN 22 mg/dL 11/06/2015 Comp Metabolic Ruh255 B/ C Ratio 25.0 Ratio 11/06/2015 Comp Metabolic Lgl204 CA LCIUM 9.1 mg/dL 11/06/2015 Comp Metabolic Spv216 AL K PHOS 59 U/L 11/06/2015 Comp Metabolic Yod211 T(SGOT) 23 U/L 11/06/2015 Comp Metabolic Zsc530 AL T(SGPT) 26 U/L 11/06/2015 Comp Metabolic Iaf993 BI LI T 0.6 mg/dL 11/06/2015 Comp Metabolic Jiv248 AL BUMIN 4.0 g/dL 11/06/2015 Comp Metabolic Ols847 TP RO 6.4 g/dL 11/06/2015 Comp Metabolic Nxz580 GL OB 2.4 g/dL 11/06/2015 Comp Metabolic Uyg373 A/ G Ratio 1.7 Ratio 11/06/2015 Comp Metabolic Xam170 Os mo 286 mOsmo 11/06/2015 Tsh Ord6 hTSH II 2.59 uIU/mL 11/06/2015 Lipid Ord30 CHOL 159 mg/dL 11/06/2015 Lipid Ord30 HDL 42.0 mg/dl 11/06/2015 Lipid Ord30 TRIG 129 mg/dL 11/06/2015 Lipid Ord30 LDL 91 mg/dL 11/06/2015 Lipid Ord30 C/HDL 3.8 Ratio 11/06/2015 %Hba1C Ybq177 % HbA1c 04743-8 5.7 % 08/08/2015 %Hba1C Iwu383 Gluc Ave 117 mg/dL 08/08/2015 Cbc With [...] 31.4 pg 08/08/2015 Cbc With Differential Ord2 [place]% 10.9 % 08/08/2015 Cbc With Differential Ord2 MCHC 33.5 pg 08/08/2015 Cbc With Differential Ord2 Eos% 4.3 % 08/08/2015 Cbc With Differential Ord2 PLT 205 K/ul 08/08/2015 Cbc With Differential Ord2 Baso% 0.4 % 08/08/2015 Cbc With Differential Ord2 Neut ABS# 2.83 K/ul 08/08/2015 Cbc With Differential Ord2 RDW 13.6 % 08/08/2015 Cbc With Differential Ord2 Lymph ABS# 1.51 K/ul 08/08/2015 Cbc With Differential Ord2 [place] ABS# 0.6 K/ul 08/08/2015 Cbc With Differential Ord2 Eos ABS# 0.2 K/ul 08/08/2015 Cbc With Differential Ord2 Baso ABS# 0.0 K/ul 08/08/2015 Tsh Ord6 hTSH II 3.19 uIU/mL 08/08/2015 Comp Metabolic Yfl896 NA 140 mEq/L 08/08/2015 Comp Metabolic Bpl386 K 4.0 mEq/L 08/08/2015 Comp Metabolic Fur875 CL 108 mEq/L 08/08/2015 Comp Metabolic Kgu991 CO2 25.0 mEq/L 08/08/2015 Comp Metabolic Qbh435 AN ION GAP 11 08/08/2015 Comp Metabolic Nsj113 GL UCOSE 100 mg/dL 08/08/2015 Comp Metabolic Dsx548 Cr eat 0.9 mg/dL 08/08/2015 Comp Metabolic Kwo644 eG FR 82 ml/min/1.73m2 08/07 Comp Metabolic Ylo587 BUN 19 mg/dL 08/08/2015 Comp Metabolic Tgf918 B/ C Ratio 20.2 Ratio 08/08/2015 Comp Metabolic Auj012 CA LCIUM 8.5 mg/dL 08/08/2015 Comp Metabolic Igu441 AL K PHOS 56 U/L 08/08/2015 Comp Metabolic Slt587 T(SGOT) 18 U/L 08/08/2015 Comp Metabolic Nun449 AL T(SGPT) 17 U/L 08/08/2015 Comp Metabolic Zca826 BI LI T 0.7 mg/dL 08/08/2015 Comp Metabolic Laj410 AL BUMIN 3.9 g/dL 08/08/2015 Comp Metabolic Maz306 TP RO 6.2 g/dL 08/08/2015 Comp Metabolic Asn557 GL OB 2.3 g/dL 08/08/2015 Comp Metabolic Hjy329 A/ G Ratio 1.7 Ratio 08/08/2015 Comp Metabolic Fup076 Os mo 282 mOsmo 08/08/2015 Lipid Ord30 CHOL 127 mg/dL 08/08/2015 [...] Procedure Codes Date DRAIN/INJECT JOINT/B URSA CPT-4: 72092 08/25/2017 PPPS, SUBSEQ VISIT CPT- 4: G0439 05/30/2017 ADMIN INFLUENZA VIRU S VAC CPT-4: G0008 12/21/2016 FLU VACC PRSV FREE I [place] ANTIG CPT-4: 07973 12/21/2016 PPPS, SUBSEQ VISIT CPT- 4: G0439 05/21/2016 TRIAMCINOLONE ACET I [place] NOS CPT-4: J3301 04/21/2016 THER/PROPH/DIAG INJ SC/IM CPT-4: 03831 04/21/2016 DRAIN/INJECT JOINT/B URSA CPT-4: 67607 11/13/2015 PNEUMOCOCCAL VACC [address]: 99831971 CPT-4: 76457 11/13/2015 ADMIN PNEUMOCOCCAL V ACCINE SNOMED CT: 19886437 CPT-4: G0009 11/13/2015 ADMIN INFLUENZA VIRU S VAC CPT-4: G0008 11/11/2015 FLU VACC 4 AZUL 3 YRS PLUS IM SNOMED CT: 98575264 CPT-4: 17916 11/11/2015 Vital Signs Date Vital 12/21/2017 Blood Pressure 1: 132/56 Code: 8480-6 BMI: 25.7 Code: 41945-3 Heart Rate 1: 58 bpm Height: 5'7" SpO2: 93% Weight: 164 lbs 08/25/2017 Blood Pressure 1: 126/74 Code: 8480-6 BMI: 26.2 Code: 78126-8 Heart Rate 1: 70 bpm Height: 5'7" SpO2: 94% Weight: 167 lbs 05/30/2017 Blood Pressure 1: 120/66 Code: 8480-6 BMI: 26.6 Code: 20049-5 Heart Rate 1: 66 bpm Height: 5'7" SpO2: 95% Waist Measure (cm): 97 cm Weight: 170 lbs 04/20/2017 Blood Pressure 1: 138/78 Code: 8480-6 BMI: 26.6 Code: 81657-9 Heart Rate 1: 86 bpm Height: 5'7" SpO2: 96% Weight: 170 lbs 01/21/2017 Blood Pressure 1: 136/70 Code: 8480-6 BMI: 26.3 Code: 37473-6 Heart Rate 1: 79 bpm Height: 5'7" SpO2: 95% Weight: 168 lbs 10/22/2016 Blood Pressure 1: 134/72 Code: 8480-6 BMI: 26.3 Code: 63867-7 Heart Rate 1: 70 bpm Height: 5'7" SpO2: 95% Weight: 168 lbs 10/04/2016 Blood Pressure 1: 142/80 Code: 8480-6 BMI: 26.6 Code: 01246-7 Heart Rate 1: 72 bpm Height: 5'7" SpO2: 93% Weight: 170 lbs 06/18/2016 Blood Pressure 1: 132/76 Code: 8480-6 BMI: 26.2 Code: 30625-4 Heart Rate 1: 65 bpm Height: 5'7" SpO2: 95% Weight: 167 lbs 8 oz 05/21/2016 Blood Pressure 1: 126/76 Code: 8480-6 BMI: 26.0 Code: 18306-1 Heart Rate 1: 72 bpm Height: 5'7" SpO2: 98% Weight: 166 lbs 04/29/2016 Blood Pressure 1: 128/70 Code: 8480-6 BMI: 25.7 Code: 63433-2 Heart Rate 1: 67 bpm Height: 5'7" SpO2: 97% Temperature: 36.3 (C ) / 97.4 (F) Weight: 164 lbs 04/21/2016 Blood Pressure 1: 130/62 Code: 8480-6 BMI: 26.3 Code: 47580-9 Heart Rate 1: 74 bpm Height: 5'7" SpO2: 96% Temperature: 37.0 (C ) / 98.6 (F) Weight: 168 lbs 02/20/2016 Blood Pressure 1: 120/64 Code: 8480-6 BMI: 26.2 Code: 12967-4 Heart Rate 1: 65 bpm Height: 5'7" SpO2: 94% Weight: 167 lbs 01/01/2016 Blood Pressure 1: 106/60 Code: 8480-6 BMI: 25.7 Code: 28541-2 Heart Rate 1: 73 bpm Height: 5'7" SpO2: 98% Weight: 164 lbs 11/13/2015 Blood Pressure 1: 122/86 Code: 8480-6 BMI: 25.8 Code: 90168-1 Heart Rate 1: 80 bpm Height: 5'7" SpO2: 92% Weight: 165 lbs 11/07/2015 Blood Pressure 1: 118/64 Code: 8480-6 BMI: 25.8 Code: 41134-5 Heart Rate 1: 66 bpm Height: 5'7" SpO2: 95% Weight: 165 lbs 08/07/2015 Blood Pressure 1: 122/80 Code: 8480-6 BMI: 24.4 Code: 27744-7 Heart Rate 1: 74 bpm Height: 5'7" [...] Encounters Encounter Performer Loca tion Codes Date [id number] EST. PATIENT, LEVEL IV Diagnosis: Type 2 diabetes mellitus without complications[ICD10: E11.9] Diagnosis: Essential (primary) hypertension[ICD10: I10] Diagnosis: Pain in right knee[ICD10: M25.561] [facility] CPT-4: 28006 12/21/2017 [id number] EST. PATIENT, LEVEL IV Diagnosis: Type 2 diabetes mellitus without complications[ICD10: E11.9] Diagnosis: Essential (primary) hypertension[ICD10: I10] Diagnosis: Pain in right knee[ICD10: M25.561] [facility] CPT-4: 68931 08/25/2017 02508 EST. PATIENT, LEVEL IV Diagnosis: Type 2 diabetes mellitus without complications[ICD10: E11.9] Diagnosis: Essential (primary) hypertension[ICD10: I10] [facility] CPT-4: 92696 04/20/2017 ([id number]) 90047 EST. P ATIENT, LEVEL III Diagnosis: Essential (primary) hypertension[ICD10: I10] Diagnosis: Obstructive sleep apnea (adult) (pediatric)[ICD10: G47.33] Nancy Hoskins MD, [facility] CPT-4: 62032 01/21/2017 ([id number]) 70306 EST. P ATIENT, LEVEL IV Diagnosis: Essential (primary) hypertension[ICD10: I10] Diagnosis: Type 2 diabetes mellitus without complications[ICD10: E11.9] Diagnosis: Obstructive sleep apnea (adult) (pediatric)[ICD10: G47.33] Nancy Hoskins MD, [facility] CPT-4: 41715 10/22/2016 ([id number]) 84572 EST. P ATIENT, LEVEL III Diagnosis: Localized edema[ICD10: R60.0] Diagnosis: Rash and other nonspecific skin eruption[ICD10: R21] Nancy Hoskins MD, [facility] CPT-4: 12642 10/04/2016 ([id number]) 92827 EST. P ATIENT, LEVEL IV Diagnosis: Essential (primary) hypertension[ICD10: I10] Diagnosis: Type 2 diabetes mellitus without complications[ICD10: E11.9] Diagnosis: Mixed hyperlipidemia[ICD10: E78.2] Nancy Hoskins MD, [facility] CPT-4: 38481 06/18/2016 ([id number]) 45100 EST. P ATIENT, LEVEL III Diagnosis: Cough[ICD10: R05] Diagnosis: Acute bronchitis, unspecified[ICD10: J20.9] Nancy Hoskins MD, [facility] CPT-4: 34101 04/29/2016 99800 EST. PATIENT, LEVEL IV Diagnosis: Other acute sinusitis[ICD10: J01.80] Diagnosis: Other allergic rhinitis[ICD10: J30.89] Lakeisha Hoskins MD, [facility] CPT-4: 06008 04/21/2016 ([id number]) 47460 EST. P ATIENT, LEVEL IV Diagnosis: Essential (primary) hypertension[ICD10: I10] Diagnosis: Type 2 diabetes mellitus without complications[ICD10: E11.9] Diagnosis: Mixed hyperlipidemia[ICD10: E78.2] Diagnosis: Primary generalized (osteo)arthritis[ICD10: M15.0] Nancy Hoskins MD, [facility] CPT-4: 30368 02/20/2016 ([id number]) 02431 EST. P ATIENT, LEVEL IV Diagnosis: Cough[ICD10: R05] Diagnosis: Acute bronchitis due to Hemophilus influenzae[ICD10: J20.1] Diagnosis: Type 2 diabetes mellitus without complications[ICD10: E11.9] Diagnosis: Essential (primary) hypertension[ICD10: I10] Charlene Hoskins MD, [facility] CPT-4: 75899 01/01/2016 ([id number]) 14654 EST. P ATIENT, LEVEL IV Diagnosis: Essential (primary) hypertension[ICD10: I10] Diagnosis: Mixed hyperlipidemia[ICD10: E78.2] Diagnosis: Type 2 diabetes mellitus without complications[ICD10: E11.9] Nancy Hoskins MD, [facility] CPT-4: 46877 11/07/2015 OFFICE VISIT, NEW - LEVEL 4 Diagnosis: Type 2 diabetes mellitus without complications[ICD10: E11.9] Diagnosis: Essential (primary) hypertension[ICD10: I10] Diagnosis: Mixed hyperlipidemia[ICD10: E78.2] Diagnosis: Elevated prostate specific antigen [PSA][ICD10: R97.2] Nancy Hoskins MD, [facility] CPT-4: 38264 08/07/2015 Plan of Care Planned Activity Notes [...] not improve. 12/21/2017 Appointment: Lakeisha Putnam WPtel: [address] [place], [place] [phone] (15 min) Moderate 12/21/2017 Patient Education: Patient Medication Summary Completed 12/21/2017 Patient Education: Diabetes Completed 12/21/2017 Visit Plan: Hypertension - well con ferned - continue with current medications, continue with [...] of injection. 08/25/2017 Appointment: Lakeisha Putnam WPtel: [facility] (15 min) Moderate 08/25/2017 Patient Education: Patient [...] Summary Completed 05/30/2017 Appointment: Lake[facility] Putnam [facility]Ptel[facility] [phone] [phone] [facility] - Annual Wellness Visit 05/27/2017 Appointment: Nancy Tavares WPtel: [facility] [phone] (30 min) Complex 04/22/2017 Visit Plan: [...] less controlled. 04/20/2017 Appointment: Lakeisha Putnam WPtel: [facility] (30 min) Complex 04/20/2017 Patient Education: [...] improved sleep, etc. Will fax note to [facility]. 01/21/2017 Appointment: Nancy Tavares WPtel: [phone] (30 min) Complex 01/21/2017 Appointment: Nancy Tavares WPtel: [address] [place], [place] [phone] (30 min) Complex 01/21/2017 Patient Education: Patient [...] doing well-due for a new machine-will call [facility] to see what we need to do to get him a new machine. 10/22/2016 Appointment: [facility] [phone] [phone] (30 min) Complex 10/22/2016 Patient Education: [...] plan. 10/04/2016 Appointment: [facility] [phone] [phone] (15 min) Moderate 10/04/2016 Patient Education: [...] dications. 06/18/2016 Appointment: [facility]el[facility] [phone] [phone] (15 min) Moderate 06/18/2016 Patient Education: [...] worsen. 04/29/2016 App[facility]ment: [facility] [phone] [phone] (15 min) Moderate 04/29/2016 Patient Education: Patient Medication Summary Completed 04/29/2016 Care Plan: CHEST X-RAY 2VW FRONTAL&LATL LOINC : 48602-3 Pending 04/29/2016 Visit Plan: Sinusitis - Pt [...] spray. 04/21/2016 App[facility]ment: Lake[facility] Putnam [facility]el[facility] [phone] [facility] (15 min) Moderate 04/21/2016 Patient Education: Patient Medication Summary Completed 04/21/2016 Visit Plan: Hypertension - well con trojakobed - continue with current medications, continue with [...] provided 02/20/2016 Appointment: [facility]el[facility] [phone] [phone] (30 min) Complex 02/20/2016 Patient Education: [...] controlled. 01/01/2016 [facility] [phone] [facility] (15 min) Moderate 01/01/2016 Patient Education: [...] injection. 11/13/2015 Appointment: [facility] [phone] [phone] (15 min) Moderate 11/13/2015 Patient Education: [...] response to medications. DM-too early for Hgb [id number] to have done next week 11/07/2015 Appointment: Nancy Tavares WPtel: [phone] (15 min) Moderate 11/07/2015 Patient Education: Patient Medication Summary Completed 11/07/2015 Visit Plan: Diabetes Mellitus - heike chana - per recent FSBS reports. I [...] biopsy results 08/07/2015 Appointment: Nancy Tavares WPtel: [phone] New Patient 08/07/2015 Patient Education: Patient Medication Summary Completed 08/07/2015 Instructions Comment CXR STOP SYMBICORT TWO PUFFS BID . Bronchitis - acute case of bronchitis identified. Pt has been given antibiotics, breathing treatments as appropriate, and pt has been instructed to call if symptoms are not improved, or if symptoms acutely worsen. . Joint Injection - Pt was given [...] response to medications. DM-too early for Hgb E1h-gtmzyry to have done next week . Hypertension [...] Elevated PSA-awaiting biopsy results . Hypertension - con tinue with current [...] TIMES WEEKLY CONTINUE STEROID CREAM ORDERED BY EMERGENCY DEPARTMENT MANAGER CULTURE RASH LEFT AXILLA . Edema - [...] doing well-due for a new machine-will call [facility] to see what we need to [...] improved sleep, etc. Will fax note to [facility].
--- OUTSIDE RECORDS SUMMARY | 2019-04-11 03:44 | XMS REPORT | CCD ---
Author Author Cesar Tavares Organization Charlene Hoskins MD, [facility] Address [address] [place] [address] Phone Care Team Providers Care Budget Technician Name Role Phone PP Unavailable CCM Unavailable Summary Purpose Interface Exchange Insurance Providers Payer name Policy type / Coverage type Covered alliance party ID Effective Begin Date Effective End Date WPS Medicare Part B Medicare Part B [id number] Unknown [facility] Part B [id number] Un known Family history Brother Diagnosis Age [...] Retir ed 08/07/[address]: 8622124 Quit over 10 years ago 1970 08/07/[address]: 830284433 Never drinks alcohol 08/07/2015 Allergies, Adverse Reactions, [...] mc g-50 mcg/dose powder for inhalation RxNorm: 5469549 INHALE 1 DOSE BY MOUTH TWICE DAILY 03/21/2018 No Stop Date Active montelukast 10 mg ta blet RxNorm: 617850 TAKE ONE TABLET BY MO [facility] ONCE DAILY 03/15/2018 No Stop Date Active Advair Diskus 250 mc g-50 mcg/dose powder for inhalation RxNorm: 6827746 INHALE 1 DOSE BY MOUTH TWICE DAILY 02/20/2018 03/20/2018 Inactive fluticasone 50 mcg/a ctuation nasal spray,suspension RxNorm: 8520670 USE 2 SPRAY(S) IN EACH NOSTRIL ONCE DAILY 02/08/2018 No Stop Date Active metformin 500 mg tablet RxNorm: 718011 TAKE 1 TABLET BY MOUTH ONCE DAILY 01/16/2018 No Stop Date Active Advair Diskus 250 mc g-50 mcg/dose powder for inhalation RxNorm: 6323492 INHALE 1 DOSE BY MOUTH TWICE DAILY 12/19/2017 02/19/2018 Inactive meloxicam 7.5 mg tablet RxNorm: 128957 TAKE 1 TABLET BY MOUTH ONCE DAILY 12/01/2017 No Stop Date Active simvastatin 20 mg ta blet RxNorm: 273256 TAKE 1 TABLET BY MOUT H ONCE DAILY 11/14/2017 No Stop Date Active losartan 50 mg tablet RxNorm: 193563 TAKE ONE TABLET BY MOUTH ONCE DAILY 10/27/2017 No Stop Date Active Advair Diskus 250 mc g-50 mcg/dose powder for inhalation RxNorm: 4082798 INHALE 1 DOSE BY MOUTH TWICE DAILY 10/19/2017 12/18/2017 Inactive fluticasone 50 mcg/a ctuation nasal spray,suspension RxNorm: 2425342 USE TWO SPRAY(S) IN EACH NOSTRIL ONCE DAILY 10/19/2017 02/07/2018 Inactive Kenalog 40 mg/mL maggie pension for injection RxNorm: 7362562 1 Milliliter(s) Inj 08/25/2017 08/25/2017 In active meloxicam 7.5 mg tablet RxNorm: 292352 TAKE ONE TABLET BY MOUTH ONCE DAILY 06/06/2017 11/30/2017 In active simvastatin 20 mg ta blet RxNorm: 966295 TAKE ONE TABLET BY MO U[facility] ONCE DAILY 05/17/2017 11/13/2017 In active metformin 500 mg tablet RxNorm: 387296 TAKE ONE TABLET BY MOUTH ONCE DAILY 05/05/2017 01/15/2018 In active Advair Diskus 250 mc g-50 mcg/dose powder for inhalation RxNorm: 1081423 INHALE ONE DOSE BY MOUTH TWICE DAILY 04/19/2017 10/18/2017 Inactive Tamiflu 75 mg capsule RxNorm: 655773 1 Capsule(s) PO daily 03/25/2017 03/24/2017 Inactive Tamiflu 75 mg capsule RxNorm: 062189 1 Capsule(s) PO daily 03/25/2017 03/31/2017 Inactive montelukast 10 mg ta blet RxNorm: 606489 TAKE ONE TABLET BY MO UTH ONCE DAILY 03/21/2017 03/14/2018 In active losartan 50 mg tablet RxNorm: 427598 TAKE ONE TABLET BY MOUTH ONCE DAILY 01/27/2017 10/26/2017 In active fluticasone 50 mcg/a ctuation nasal spray,suspension RxNorm: 0686048 USE TWO SPRAY(S) IN EACH NOSTRIL ONCE DAILY 01/17/2017 10/18/2017 Inactive meloxicam 7.5 mg tablet RxNorm: 905080 TAKE ONE TABLET BY MOUTH ONCE DAILY 12/06/2016 06/03/2017 In active metformin 500 mg tablet RxNorm: 890920 Tablet(s) TAKE ONE TABLET BY MOUTH TWICE DAILY 11/30/2016 11/24/2017 Inactive simvastatin 20 mg ta blet RxNorm: 819384 TAKE ONE TABLET BY MO UTH ONCE DAILY 11/15/2016 05/13/2017 In active Advair Diskus 250 mc g-50 mcg/dose powder for inhalation RxNorm: 9609276 INHALE ONE PUFF BY MOUTH TWICE DAILY 10/22/2016 04/18/2017 Inactive ketoconazole 2 % [facility] RxNorm: 902142 1 Application TOP TIW 10/04/2016 10/17/2016 Inactive fluticasone 50 mcg/a ctuation nasal spray,suspension RxNorm: 5655191 USE TWO SPRAY(S) IN EACH NOSTRIL ONCE DAILY 09/21/2016 11/19/2016 Inactive montelukast 10 mg ta blet RxNorm: 020551 TAKE ONE TABLET BY MO UTH ONCE DAILY 09/21/2016 03/19/2017 In active losartan 50 mg tablet RxNorm: 216593 TAKE ONE TABLET BY MOUTH ONCE DAILY 08/02/2016 01/26/2017 In active metformin 500 mg tablet RxNorm: 999339 TAKE ONE TABLET BY MOUTH TWICE DAILY 07/22/2016 10/19/2016 In active furosemide 20 mg tablet RxNorm: 074383 1 Tablet(s) PO daily as needed for swell ing 07/21/2016 10/18/2016 Inactive meloxicam 7.5 mg tablet RxNorm: 793743 TAKE ONE TABLET BY MOUTH ONCE DAILY 06/08/2016 12/04/2016 In active cefdinir 300 mg capsule RxNorm: 853527 1 Capsule(s) PO BID 04/29/2016 05/05/2016 Inactive prednisone 20 mg tablet RxNorm: 451893 1 Tablet(s) PO BID 04/29/2016 05/03/2016 Inactive Zithromax Z-Sherif 250 mg tablet RxNorm: 401685 1 Tablet(s) PO UD 04/21/2016 04/28/2016 Inactive Kenalog 40 mg/mL maggie pension for injection RxNorm: 8610055 1 Milliliter(s) Inj 04/21/2016 04/21/2016 In active montelukast 10 mg ta blet RxNorm: 242744 TAKE ONE TABLET BY MO [facility] ONCE DAILY 03/22/2016 09/17/2016 In active fluticasone 50 mcg/a ctuation nasal spray,suspension RxNorm: 6045381 2 [place] NASAL daily each nare 03/15/2016 07/12/2016 Inactive qs metformin 500 mg tablet RxNorm: 100103 1 Tablet(s) PO daily 01/16/2016 2016 Inactive Patient does not need a refill- just upd ate dosing simvastatin 40 mg ta blet RxNorm: 328999 1 Tablet(s) PO daily 01/01/2016 No Stop Date Active Advair Diskus 250 mc g-50 mcg/dose powder for inhalation RxNorm: 0387468 1 INH BID 01/01/2016 04/29/2016 In active Advair Diskus 250 mc g-50 mcg/dose powder for inhalation RxNorm: 0472202 1 INH daily 01/01/2016 12/31/2015 Inactive metformin 500 mg tablet RxNorm: 750549 1 Tablet(s) PO daily 01/01/2016 01/15/2016 Inactive azithromycin 250 mg tablet RxNorm: 985359 1 Tablet(s) PO take t wo pills on day #1, then one pill daily x 4 more days 01/01/2016 02/17/2016 Inactive meloxicam 7.5 mg tablet RxNorm: 533012 1 Tablet(s) PO daily 12/11/2015 06/07/2016 Inactive simvastatin 20 mg ta blet RxNorm: 040601 1 Tablet(s) PO daily 11/21/2015 12/31/2015 Inactive metformin 500 mg tablet RxNorm: 565799 1 Tablet(s) PO BID 11/21/2015 12/31/2015 Inactive Advair Diskus 250 mc g-50 mcg/dose powder for inhalation RxNorm: 2749340 1 INH BID 11/21/2015 12/31/2015 In active montelukast 10 mg ta blet RxNorm: 138020 1 Tablet(s) PO daily 09/25/2015 03/21/2016 Inactive losartan 50 mg tablet RxNorm: 388889 1 Tablet(s) PO daily 09/04/2015 08/01/2016 Inactive Restasis 0.05 % eye drops in a dropperette RxNorm: 041208 1 gtts OPH BID 08/07/2015 No Stop Date Active meloxicam 7.5 mg tablet RxNorm: 272142 1 Tablet(s) PO daily 08/07/2015 09/05/2015 Inactive Kay oral RxNorm: 729630 oral No Start Date Active finasteride 5 mg tablet RxNorm: 444747 1 Tablet(s) PO daily No Start Date Active Zyrtec 10 mg tablet RxNorm: 3218524 1 Tablet(s) PO daily No Start Date Active Co Q-10 200 mg capsule RxNorm: 541936 1 Capsule(s) PO daily No Start Date Active Calcium 500 + D (D3) oral RxNorm: 906020 oral No S tart Date Active simethicone 125 mg c apsule RxNorm: 192386 Capsule(s) PO as needed No Start Date Active Vitamin D3 1,000 uni t tablet RxNorm: 778610 1 Tablet(s) PO daily No Start Date Active omega-3 fatty acids 1,000 mg capsule RxNorm: 4 Capsule(s) PO daily No Start Date Active triamcinolone aceton chasity 0.1 % topical cream RxNorm: 5046992 1 TOP UD No Start Date Active fluticasone 50 mcg/a ctuation nasal spray,suspension RxNorm: 5453502 2 [place] NASAL daily each nare No Start Date 03/14/2016 Inactive losartan 50 mg tablet RxNorm: 999783 1 Tablet(s) PO daily No Start Date 09/03/2015 Inactive metformin 500 mg tablet RxNorm: 045425 1 Tablet(s) PO daily No Start Date 11/20/2015 Inactive simvastatin 40 mg ta blet RxNorm: 467338 1 Tablet(s) PO daily No Start Date 11/20/2015 Inactive furosemide 20 mg tablet RxNorm: 565249 1 Tablet(s) PO daily as needed No Start Date 07/20/2016 Inactive Advair Diskus 250 mc g-50 mcg/dose powder for inhalation RxNorm: 6375043 1 INH daily No Start Date 11/20/2015 Inactive Multiple Vitamin oral RxNorm: 46598 oral No Start Date 12/31/2015 Inactive montelukast 10 mg ta blet RxNorm: 865073 1 Tablet(s) PO daily No Start Date 09/24/2015 Inactive Medication Administered Medication Codes Instruc tions Start Date Status Kenalog 40 mg/mL suspension for injection RxNorm: 3539256 1Milliliter 08/25/2017 N o longer Active Kenalog 40 mg/mL suspension for injection RxNorm: 5065047 1Milliliter 04/21/2016 N o longer Active Immunizations [...] Code Item Item Code Result Date %Hba1C Qkb082 % HbA1c 06760-0 6.0 % 12/21/2017 %Hba1C Mle536 Gluc Ave 126 mg/dL 12/21/2017 Cbc With Differential Ord2 WBC 6.58 K/ul 04/20/2017 Cbc With Differential Ord2 RBC 4.21 M/ul 04/20/2017 Cbc With Differential Ord2 HGB 13.4 g/dl 04/20/2017 Cbc With Differential Ord2 Neut% 59.5 % 04/20/2017 Cbc With Differential Ord2 HCT 39.7 % 04/20/2017 Cbc With Differential Ord2 MCV 94.3 fl 04/20/2017 Cbc With Differential Ord2 Lymph% 27.7 % 04/20/2017 Cbc With Differential Ord2 MCH 31.8 pg 04/20/2017 Cbc With Differential Ord2 [place]% 9.3 % 04/20/2017 Cbc With Differential Ord2 [...] 1.82 K/ul 04/20/2017 Cbc With Differential Ord2 [place] ABS# 0.6 K/ul 04/20/2017 Cbc With Differential Ord2 Eos ABS# 0.2 K/ul 04/20/2017 Cbc With Differential Ord2 Baso ABS# 0.0 K/ul 04/20/2017 Comp Metabolic Mrx933 NA 141 mEq/L 04/20/2017 Comp Metabolic Drr243 K 4.5 mEq/L 04/20/2017 Comp Metabolic Nyl520 CL 106 mEq/L 04/20/2017 Comp Metabolic Fwd313 CO2 27.0 mEq/L 04/20/2017 Comp Metabolic Mxh077 AN ION GAP 13 04/20/2017 Comp Metabolic Eyf988 GL UCOSE 109 mg/dL 04/20/2017 Comp Metabolic Fzp586 Cr eat 1.0 mg/dL 04/20/2017 Comp Metabolic Ukr007 eG FR 81 ml/min/1.73m2 04/20 Comp Metabolic Gdy719 BUN 23 mg/dL 04/20/2017 Comp Metabolic Ovl722 B/ C Ratio 24.2 Ratio 04/20/2017 Comp Metabolic Ism470 CA LCIUM 9.3 mg/dL 04/20/2017 Comp Metabolic Bui546 AL K PHOS 82 U/L 04/20/2017 Comp Metabolic Rtf550 T(SGOT) 22 U/L 04/20/2017 Comp Metabolic Xkz808 AL T(SGPT) 24 U/L 04/20/2017 Comp Metabolic Lgc873 BI LI T 0.4 mg/dL 04/20/2017 Comp Metabolic Awq436 AL BUMIN 4.3 g/dL 04/20/2017 Comp Metabolic Shu766 TP RO 6.8 g/dL 04/20/2017 Comp Metabolic Fsr519 GL OB 2.5 g/dL 04/20/2017 Comp Metabolic Zqg991 A/ G Ratio 1.7 Ratio 04/20/2017 Comp Metabolic Osk508 Os mo 286 mOsmo 04/20/2017 %Hba1C Dwj318 % HbA1c 27114-3 6.2 % 04/20/2017 %Hba1C Tpu804 Gluc Ave 131 mg/dL 04/20/2017 Comp Metabolic Knd377 NA 141 mEq/L 10/22/2016 Comp Metabolic Pwk889 K 4.4 mEq/L 10/22/2016 Comp Metabolic Gmt301 CL 105 mEq/L 10/22/2016 Comp Metabolic Okd004 CO2 27.0 mEq/L 10/22/2016 Comp Metabolic Ypx417 AN ION GAP 13 10/22/2016 Comp Metabolic Mjz667 GL UCOSE 103 mg/dL 10/22/2016 Comp Metabolic Wrl850 Cr eat 1.0 mg/dL 10/22/2016 Comp Metabolic Ybq135 eG FR 76 ml/min/1.73m2 10/22 Comp Metabolic Ohb396 BUN 27 mg/dL 10/22/2016 Comp Metabolic Dyw031 B/ C Ratio 27.0 Ratio 10/22/2016 Comp Metabolic Qqc978 CA LCIUM 9.3 mg/dL 10/22/2016 Comp Metabolic Vzm502 AL K PHOS 72 U/L 10/22/2016 Comp Metabolic Hyd687 T(SGOT) 23 U/L 10/22/2016 Comp Metabolic Ygo107 AL T(SGPT) 26 U/L 10/22/2016 Comp Metabolic Znb703 BI LI T 0.4 mg/dL 10/22/2016 Comp Metabolic Zda724 AL BUMIN 4.2 g/dL 10/22/2016 Comp Metabolic Aoi782 TP RO 6.7 g/dL 10/22/2016 Comp Metabolic Wew400 GL OB 2.5 g/dL 10/22/2016 Comp Metabolic Nzj585 A/ G Ratio 1.6 Ratio 10/22/2016 Comp Metabolic Ybl478 Os mo 287 mOsmo 10/22/2016 Cbc With [...] 96.3 fl 10/22/2016 Cbc With Differential Ord2 [place]% 10.3 % 10/22/2016 Cbc With Differential Ord2 [...] 1.85 K/ul 10/22/2016 Cbc With Differential Ord2 [place] ABS# 0.8 K/ul 10/22/2016 Cbc With Differential Ord2 Eos ABS# 0.3 K/ul 10/22/2016 Cbc With Differential Ord2 Baso ABS# 0.0 K/ul 10/22/2016 %Hba1C Yfj347 % HbA1c 41701-0 5.8 % 10/22/2016 %Hba1C Eet568 Gluc Ave 120 mg/dL 10/22/2016 Tsh Ord6 [...] 32.7 pg 06/17/2016 Cbc With Differential Ord2 [place]% 10.7 % 06/17/2016 Cbc With Differential Ord2 [...] 1.71 K/ul 06/17/2016 Cbc With Differential Ord2 [place] ABS# 0.6 K/ul 06/17/2016 Cbc With Differential Ord2 Eos ABS# 0.2 K/ul 06/17/2016 Cbc With Differential Ord2 Baso ABS# 0.0 K/ul 06/17/2016 Total Psa Ord10 PSA 0.00 ng/mL 06/17/2016 %Hba1C Tia796 % HbA1c 59170-7 6.0 % 06/17/2016 %Hba1C Csv758 Gluc Ave 126 mg/dL 06/17/2016 Lipid Ord30 CHOL 163 mg/dL 06/17/2016 Lipid Ord30 HDL 54.0 mg/dl 06/17/2016 Lipid Ord30 TRIG 133 mg/dL 06/17/2016 Lipid Ord30 LDL 82 mg/dL 06/17/2016 Lipid Ord30 C/HDL 3.0 Ratio 06/17/2016 Comp Metabolic Qes181 NA 143 mEq/L 06/17/2016 Comp Metabolic Kno598 K 4.1 mEq/L 06/17/2016 Comp Metabolic Aau757 CL 108 mEq/L 06/17/2016 Comp Metabolic Pzi745 CO2 28.0 mEq/L 06/17/2016 Comp Metabolic Rwg805 AN ION GAP 11 06/17/2016 Comp Metabolic Nds907 GL UCOSE 106 mg/dL 06/17/2016 Comp Metabolic Hmu499 Cr eat 0.9 mg/dL 06/17/2016 Comp Metabolic Ebr765 eG FR 92 ml/min/1.73m2 06/17 Comp Metabolic Enc661 BUN 22 mg/dL 06/17/2016 Comp Metabolic Azm718 B/ C Ratio 25.9 Ratio 06/17/2016 Comp Metabolic Hrd974 CA LCIUM 8.8 mg/dL 06/17/2016 Comp Metabolic Eik663 AL K PHOS 55 U/L 06/17/2016 Comp Metabolic Uaa525 T(SGOT) 21 U/L 06/17/2016 Comp Metabolic Fbp199 AL T(SGPT) 24 U/L 06/17/2016 Comp Metabolic Kbf740 BI LI T 0.6 mg/dL 06/17/2016 Comp Metabolic Xud322 AL BUMIN 4.0 g/dL 06/17/2016 Comp Metabolic Lbq842 TP RO 6.2 g/dL 06/17/2016 Comp Metabolic Lpf389 GL OB 2.2 g/dL 06/17/2016 Comp Metabolic Zov742 A/ G Ratio 1.8 Ratio 06/17/2016 Comp Metabolic Bwa697 Os mo 289 mOsmo 06/17/2016 Comp Metabolic Kvf961 NA 141 mEq/L 02/19/2016 Comp Metabolic Mre349 K 4.2 mEq/L 02/19/2016 Comp Metabolic Klw730 CL 107 mEq/L 02/19/2016 Comp Metabolic Aoy726 CO2 29.0 mEq/L 02/19/2016 Comp Metabolic Piw963 AN ION GAP 9 02/19/2016 Comp Metabolic Mnc365 GL UCOSE 106 mg/dL 02/19/2016 Comp Metabolic Pjn474 Cr eat 0.9 mg/dL 02/19/2016 Comp Metabolic Jsg842 eG FR 90 ml/min/1.73m2 02/18 Comp Metabolic Uhh878 BUN 24 mg/dL 02/19/2016 Comp Metabolic Xyz584 B/ C Ratio 27.6 Ratio 02/19/2016 Comp Metabolic Ztq872 CA LCIUM 9.1 mg/dL 02/19/2016 Comp Metabolic Bzw907 AL K PHOS 67 U/L 02/19/2016 Comp Metabolic Blq613 T(SGOT) 25 U/L 02/19/2016 Comp Metabolic Wox112 AL T(SGPT) 31 U/L 02/19/2016 Comp Metabolic Mit582 BI LI T 0.6 mg/dL 02/19/2016 Comp Metabolic Ogw498 AL BUMIN 4.1 g/dL 02/19/2016 Comp Metabolic Btn687 TP RO 6.5 g/dL 02/19/2016 Comp Metabolic Pqe483 GL OB 2.4 g/dL 02/19/2016 Comp Metabolic Gwy973 A/ G Ratio 1.7 Ratio 02/19/2016 Comp Metabolic Wes949 Os mo 286 mOsmo 02/19/2016 Tsh Ord6 hTSH II 2.45 uIU/mL 02/19/2016 %Hba1C Kcb385 % HbA1c 18873-1 5.8 % 02/19/2016 %Hba1C Phh740 Gluc Ave 120 mg/dL 02/19/2016 Cbc With Differential Ord2 WBC 5.92 [...] 31.7 pg 02/19/2016 Cbc With Differential Ord2 [place]% 10.5 % 02/19/2016 Cbc With Differential Ord2 [...] 1.59 K/ul 02/19/2016 Cbc With Differential Ord2 [place] ABS# 0.6 K/ul 02/19/2016 Cbc With Differential Ord2 Eos ABS# 0.3 K/ul 02/19/2016 Cbc With Differential Ord2 Baso ABS# 0.0 K/ul 02/19/2016 Lipid Ord30 CHOL 174 mg/dL 02/19/2016 Lipid Ord30 HDL 54.0 mg/dl 02/19/2016 Lipid Ord30 TRIG 110 mg/dL 02/19/2016 Lipid Ord30 LDL 98 mg/dL 02/19/2016 Lipid Ord30 C/HDL 3.2 Ratio 02/19/2016 %Hba1C Hvc281 % HbA1c 95756-6 6.0 % 11/11/2015 %Hba1C Xdk260 Gluc Ave 126 mg/dL 11/11/2015 %Hba1C Cml174 % HbA1c 16963-9 6.0 % 11/07/2015 %Hba1C Qhu921 Gluc Ave 126 mg/dL 11/07/2015 Cbc With [...] 32.0 pg 11/06/2015 Cbc With Differential Ord2 [place]% 9.5 % 11/06/2015 Cbc With Differential Ord2 [...] 1.79 K/ul 11/06/2015 Cbc With Differential Ord2 [place] ABS# 0.6 K/ul 11/06/2015 Cbc With Differential Ord2 Eos ABS# 0.3 K/ul 11/06/2015 Cbc With Differential Ord2 Baso ABS# 0.0 K/ul 11/06/2015 Comp Metabolic Vft446 NA 141 mEq/L 11/06/2015 Comp Metabolic Apd746 K 4.3 mEq/L 11/06/2015 Comp Metabolic Twb623 CL 107 mEq/L 11/06/2015 Comp Metabolic Xux151 CO2 28.0 mEq/L 11/06/2015 Comp Metabolic Dqp344 AN ION GAP 10 11/06/2015 Comp Metabolic Pqh368 GL UCOSE 117 mg/dL 11/06/2015 Comp Metabolic Nic009 Cr eat 0.9 mg/dL 11/06/2015 Comp Metabolic Uza395 eG FR 88 ml/min/1.73m2 11/05 Comp Metabolic Til008 BUN 22 mg/dL 11/06/2015 Comp Metabolic Srb149 B/ C Ratio 25.0 Ratio 11/06/2015 Comp Metabolic Uwx093 CA LCIUM 9.1 mg/dL 11/06/2015 Comp Metabolic Clr534 AL K PHOS 59 U/L 11/06/2015 Comp Metabolic Joy444 T(SGOT) 23 U/L 11/06/2015 Comp Metabolic Vwc986 AL T(SGPT) 26 U/L 11/06/2015 Comp Metabolic Bqa926 BI LI T 0.6 mg/dL 11/06/2015 Comp Metabolic Wvf307 AL BUMIN 4.0 g/dL 11/06/2015 Comp Metabolic Jqr561 TP RO 6.4 g/dL 11/06/2015 Comp Metabolic Cbk610 GL OB 2.4 g/dL 11/06/2015 Comp Metabolic Tjr378 A/ G Ratio 1.7 Ratio 11/06/2015 Comp Metabolic Ewa296 Os mo 286 mOsmo 11/06/2015 Tsh Ord6 hTSH II 2.59 uIU/mL 11/06/2015 Lipid Ord30 CHOL 159 mg/dL 11/06/2015 Lipid Ord30 HDL 42.0 mg/dl 11/06/2015 Lipid Ord30 TRIG 129 mg/dL 11/06/2015 Lipid Ord30 LDL 91 mg/dL 11/06/2015 Lipid Ord30 C/HDL 3.8 Ratio 11/06/2015 Tsh Ord6 hTSH II 3.19 uIU/mL 08/08/2015 Cbc With Differential Ord2 WBC 5.14 K/ul 08/08/2015 Cbc With Differential Ord2 RBC 4.27 M/ul 08/08/2015 Cbc With Differential Ord2 HGB 13.4 g/dl 08/08/2015 Cbc With Differential Ord2 Neut% 55.0 % 08/08/2015 Cbc With Differential Ord2 HCT 40.0 % 08/08/2015 Cbc With Differential Ord2 MCV 93.7 fl 08/08/2015 Cbc With Differential Ord2 Lymph% 29.4 % 08/08/2015 Cbc With Differential Ord2 [place]% 10.9 % 08/08/2015 Cbc With Differential Ord2 MCH 31.4 pg 08/08/2015 Cbc With Differential Ord2 MCHC 33.5 pg 08/08/2015 Cbc With Differential Ord2 Eos% 4.3 % 08/08/2015 Cbc With Differential Ord2 PLT 205 K/ul 08/08/2015 Cbc With Differential Ord2 Baso% 0.4 % 08/08/2015 Cbc With Differential Ord2 RDW 13.6 % 08/08/2015 Cbc With Differential Ord2 Neut ABS# 2.83 K/ul 08/08/2015 Cbc With Differential Ord2 Lymph ABS# 1.51 K/ul 08/08/2015 Cbc With Differential Ord2 [place] ABS# 0.6 K/ul 08/08/2015 Cbc With Differential Ord2 Eos ABS# 0.2 K/ul 08/08/2015 Cbc With Differential Ord2 Baso ABS# 0.0 K/ul 08/08/2015 Comp Metabolic Bri735 NA 140 mEq/L 08/08/2015 Comp Metabolic Zuj578 K 4.0 mEq/L 08/08/2015 Comp Metabolic Tzl478 CL 108 mEq/L 08/08/2015 Comp Metabolic Lcj824 CO2 25.0 mEq/L 08/08/2015 Comp Metabolic Ujo686 AN ION GAP 11 08/08/2015 Comp Metabolic Dgd106 GL UCOSE 100 mg/dL 08/08/2015 Comp Metabolic Mxs210 Cr eat 0.9 mg/dL 08/08/2015 Comp Metabolic Bui898 eG FR 82 ml/min/1.73m2 08/07 Comp Metabolic Ouo921 BUN 19 mg/dL 08/08/2015 Comp Metabolic Mjz616 B/ C Ratio 20.2 Ratio 08/08/2015 Comp Metabolic Wtp010 CA LCIUM 8.5 mg/dL 08/08/2015 Comp Metabolic Zrg325 AL K PHOS 56 U/L 08/08/2015 Comp Metabolic Lkj282 T(SGOT) 18 U/L 08/08/2015 Comp Metabolic Wan006 AL T(SGPT) 17 U/L 08/08/2015 Comp Metabolic Jmm649 BI LI T 0.7 mg/dL 08/08/2015 Comp Metabolic Lfw748 AL BUMIN 3.9 g/dL 08/08/2015 Comp Metabolic Ntj546 TP RO 6.2 g/dL 08/08/2015 Comp Metabolic Vmq552 GL OB 2.3 g/dL 08/08/2015 Comp Metabolic Dnx154 A/ G Ratio 1.7 Ratio 08/08/2015 Comp Metabolic Fns869 Os mo 282 mOsmo 08/08/2015 %Hba1C Mix754 % HbA1c 18730-2 5.7 % 08/08/2015 %Hba1C Qrl591 Gluc Ave 117 mg/dL 08/08/2015 Lipid Ord30 CHOL 127 mg/dL 08/08/2015 [...] Procedure Codes Date DRAIN/INJECT JOINT/B URSA CPT-4: 14629 08/25/2017 PPPS, SUBSEQ VISIT CPT- 4: G0439 05/30/2017 ADMIN INFLUENZA VIRU S VAC CPT-4: G0008 12/21/2016 FLU VACC PRSV FREE I NC ANTIG CPT-4: 43656 12/21/2016 PPPS, SUBSEQ VISIT CPT- 4: G0439 05/21/2016 TRIAMCINOLONE ACET I [place] NOS CPT-4: J3301 04/21/2016 THER/PROPH/DIAG INJ SC/IM CPT-4: 47926 04/21/2016 DRAIN/INJECT JOINT/B URSA CPT-4: 69436 11/13/2015 PNEUMOCOCCAL VACC [address]: 68345677 CPT-4: 77990 11/13/2015 ADMIN PNEUMOCOCCAL V ACCINE SNOMED CT: 10406211 CPT-4: G0009 11/13/2015 ADMIN INFLUENZA VIRU S VAC CPT-4: G0008 11/11/2015 FLU VACC 4 AZUL 3 YRS PLUS IM SNOMED CT: 68088710 CPT-4: 46983 11/11/2015 Vital Signs Date Vital 12/21/2017 Blood Pressure 1: 132/56 Code: 8480-6 BMI: 25.7 Code: 34896-6 Heart Rate 1: 58 bpm Height: 5'7" SpO2: 93% Weight: 164 lbs 08/25/2017 Blood Pressure 1: 126/74 Code: 8480-6 BMI: 26.2 Code: 97272-4 Heart Rate 1: 70 bpm Height: 5'7" SpO2: 94% Weight: 167 lbs 05/30/2017 Blood Pressure 1: 120/66 Code: 8480-6 BMI: 26.6 Code: 87103-8 Heart Rate 1: 66 bpm Height: 5'7" SpO2: 95% Waist Measure (cm): 97 cm Weight: 170 lbs 04/20/2017 Blood Pressure 1: 138/78 Code: 8480-6 BMI: 26.6 Code: 86097-5 Heart Rate 1: 86 bpm Height: 5'7" SpO2: 96% Weight: 170 lbs 01/21/2017 Blood Pressure 1: 136/70 Code: 8480-6 BMI: 26.3 Code: 97844-0 Heart Rate 1: 79 bpm Height: 5'7" SpO2: 95% Weight: 168 lbs 10/22/2016 Blood Pressure 1: 134/72 Code: 8480-6 BMI: 26.3 Code: 14916-0 Heart Rate 1: 70 bpm Height: 5'7" SpO2: 95% Weight: 168 lbs 10/04/2016 Blood Pressure 1: 142/80 Code: 8480-6 BMI: 26.6 Code: 18399-9 Heart Rate 1: 72 bpm Height: 5'7" SpO2: 93% Weight: 170 lbs 06/18/2016 Blood Pressure 1: 132/76 Code: 8480-6 BMI: 26.2 Code: 35996-4 Heart Rate 1: 65 bpm Height: 5'7" SpO2: 95% Weight: 167 lbs 8 oz 05/21/2016 Blood Pressure 1: 126/76 Code: 8480-6 BMI: 26.0 Code: 72740-2 Heart Rate 1: 72 bpm Height: 5'7" SpO2: 98% Weight: 166 lbs 04/29/2016 Blood Pressure 1: 128/70 Code: 8480-6 BMI: 25.7 Code: 12690-1 Heart Rate 1: 67 bpm Height: 5'7" SpO2: 97% Temperature: 36.3 (C ) / 97.4 (F) Weight: 164 lbs 04/21/2016 Blood Pressure 1: 130/62 Code: 8480-6 BMI: 26.3 Code: 95163-7 Heart Rate 1: 74 bpm Height: 5'7" SpO2: 96% Temperature: 37.0 (C ) / 98.6 (F) Weight: 168 lbs 02/20/2016 Blood Pressure 1: 120/64 Code: 8480-6 BMI: 26.2 Code: 25141-6 Heart Rate 1: 65 bpm Height: 5'7" SpO2: 94% Weight: 167 lbs 01/01/2016 Blood Pressure 1: 106/60 Code: 8480-6 BMI: 25.7 Code: 20395-6 Heart Rate 1: 73 bpm Height: 5'7" SpO2: 98% Weight: 164 lbs 11/13/2015 Blood Pressure 1: 122/86 Code: 8480-6 BMI: 25.8 Code: 48788-8 Heart Rate 1: 80 bpm Height: 5'7" SpO2: 92% Weight: 165 lbs 11/07/2015 Blood Pressure 1: 118/64 Code: 8480-6 BMI: 25.8 Code: 92624-8 Heart Rate 1: 66 bpm Height: 5'7" SpO2: 95% Weight: 165 lbs 08/07/2015 Blood Pressure 1: 122/80 Code: 8480-6 BMI: 24.4 Code: 26175-4 Heart Rate 1: 74 bpm Height: 5'7" [...] Encounters Encounter Performer Loca tion Codes Date 02478 EST. PATIENT, LEVEL IV Diagnosis: Type 2 diabetes mellitus without complications[ICD10: E11.9] Diagnosis: Essential (primary) hypertension[ICD10: I10] Diagnosis: Pain in right knee[ICD10: M25.561] [facility] CPT-4: 78141 12/21/2017 [id number] EST. PATIENT, LEVEL IV Diagnosis: Type 2 diabetes mellitus without complications[ICD10: E11.9] Diagnosis: Essential (primary) hypertension[ICD10: I10] Diagnosis: Pain in right knee[ICD10: M25.561] [facility] CPT-4: 52321 08/25/2017 03613 EST. PATIENT, LEVEL IV Diagnosis: Type 2 diabetes mellitus without complications[ICD10: E11.9] Diagnosis: Essential (primary) hypertension[ICD10: I10] [facility] CPT-4: 40877 04/20/2017 ([id number]) [id number] EST. P ATIENT, LEVEL III Diagnosis: Essential (primary) hypertension[ICD10: I10] Diagnosis: Obstructive sleep apnea (adult) (pediatric)[ICD10: G47.33] [facility] CPT-4: 59495 01/21/2017 ([id number]) 59496 EST. P ATIENT, LEVEL IV Diagnosis: Essential (primary) hypertension[ICD10: I10] Diagnosis: Type 2 diabetes mellitus without complications[ICD10: E11.9] Diagnosis: Obstructive sleep apnea (adult) (pediatric)[ICD10: G47.33] Nancy Hoskins MD, [facility] CPT-4: 64108 10/22/2016 ([id number]) 64085 EST. P ATIENT, LEVEL III Diagnosis: Localized edema[ICD10: R60.0] Diagnosis: Rash and other nonspecific skin eruption[ICD10: R21] Nancy Hoskins MD, [facility] CPT-4: 59486 10/04/2016 ([id number]) 01587 EST. P ATIENT, LEVEL IV Diagnosis: Essential (primary) hypertension[ICD10: I10] Diagnosis: Type 2 diabetes mellitus without complications[ICD10: E11.9] Diagnosis: Mixed hyperlipidemia[ICD10: E78.2] Nancy Hoskins MD, [facility] CPT-4: 37141 06/18/2016 ([id number]) 30535 EST. P ATIENT, LEVEL III Diagnosis: Cough[ICD10: R05] Diagnosis: Acute bronchitis, unspecified[ICD10: J20.9] Nancy Hoskins MD, [facility] CPT-4: 83144 04/29/2016 73537 EST. PATIENT, LEVEL IV Diagnosis: Other acute sinusitis[ICD10: J01.80] Diagnosis: Other allergic rhinitis[ICD10: J30.89] Lakeisha Hoskins MD, [facility] CPT-4: 75868 04/21/2016 ([id number]) [id number] EST. P ATIENT, LEVEL IV Diagnosis: Essential (primary) hypertension[ICD10: I10] Diagnosis: Type 2 diabetes mellitus without complications[ICD10: E11.9] Diagnosis: Mixed hyperlipidemia[ICD10: E78.2] Diagnosis: Primary generalized (osteo)arthritis[ICD10: M15.0] Nancy Hoskins MD, [facility] CPT-4: 68537 02/20/2016 ([id number]) 85065 EST. P ATIENT, LEVEL IV Diagnosis: Cough[ICD10: R05] Diagnosis: Acute bronchitis due to Hemophilus influenzae[ICD10: J20.1] Diagnosis: Type 2 diabetes mellitus without complications[ICD10: E11.9] Diagnosis: Essential (primary) hypertension[ICD10: I10] Charlene Hoskins MD, [facility] CPT-4: 12952 01/01/2016 ([id number]) 91509 EST. P ATIENT, LEVEL IV Diagnosis: Essential (primary) hypertension[ICD10: I10] Diagnosis: Mixed hyperlipidemia[ICD10: E78.2] Diagnosis: Type 2 diabetes mellitus without complications[ICD10: E11.9] Nancy Hoskins MD, [facility] CPT-4: 47244 11/07/2015 OFFICE VISIT, NEW - LEVEL 4 Diagnosis: Type 2 diabetes mellitus without complications[ICD10: E11.9] Diagnosis: Essential (primary) hypertension[ICD10: I10] Diagnosis: Mixed hyperlipidemia[ICD10: E78.2] Diagnosis: Elevated prostate specific antigen [PSA][ICD10: R97.2] Nancy Hoskins MD, [facility] CPT-4: 17332 08/07/2015 Plan of Care Planned Activity Notes [...] not improve. 12/21/2017 Appointment: Lakeisha Putnam WPtel: [address] [place], [place] [address] (15 min) Moderate 12/21/2017 Patient Education: Patient [...] of injection. 08/25/2017 Appointment: Lakeisha Putnam WPtel: [address] [place] [address] (15 min) Moderate 08/25/2017 Patient Education: Patient [...] Summary Completed 05/30/2017 Appointment: Lakeisha Putnam WPtel: [facility] [facility] - Annual Wellness Visit 05/27/2017 Appointment: Nancy Tavares WPtel: [address] [place], [place] [phone] (30 min) Complex 04/22/2017 Visit Plan: Hypertension [...] controlled. 04/20/2017 [facility]ment[phone] [facility] (30 min) Complex 04/20/2017 Patient Education: Patient [...] improved sleep, etc. Will fax note to [facility]. 01/21/2017 Appointment: [facility]avares [facility]Ptel[phone] (30 min) Complex 01/21/2017 Appointment: [facility]avares [facility]Ptel[phone] (30 min) Complex 01/21/2017 Patient Education: Patient [...] machine. 10/22/2016 Appointment: Nancy Tavares WPtel: [phone] [facility] (30 min) Complex 10/22/2016 Patient Education: Patient [...] plan. 10/04/2016 Appointment: Nancy Tavares WPtel: [phone] [phone] (15 min) Moderate 10/04/2016 Patient Education: [...] dications. 06/18/2016 Appointment: [facility] [phone] [phone] (15 min) Moderate 06/18/2016 Patient Education: Patient [...] worsen. 04/29/2016 Appointment: [facility] [phone] [phone] (15 min) Moderate 04/29/2016 Patient Education: Patient Medication Summary Completed 04/29/2016 Care Plan: CHEST X-RAY 2VW FRONTAL&LATL LOINC : 92721-7 Pending 04/29/2016 Visit Plan: Sinusitis - Pt [...] spray. 04/21/2016 Appointment: Lake[facility] Put[facility] [phone] [facility] (15 min) Moderate 04/21/2016 Patient Education: Patient [...] placard provided 02/20/2016 Appointment: [facility] [phone] [phone] (30 min) Complex 02/20/2016 Patient Education: Patient [...] controlled. 01/01/2016 App[facility]ment[phone] [facility] (15 min) Moderate 01/01/2016 Patient [...] injection. 11/13/2015 Appointment: [facility]el[facility] [phone] [phone] (15 min) Moderate 11/13/2015 Patient Education: Patient [...] response to medications. DM-too early for Hgb [id number] to have done next week 11/07/2015 Appointment: Nancy Tavares WPtel: [phone] [phone] (15 min) Moderate 11/07/2015 Patient Education: [...] biopsy results 08/07/2015 Appointment: Nancy Tavares WPtel: [address] [place], [place] [phone] New Patient 08/07/2015 Patient Education: Patient Medication [...] is worsening or does not improve. . Medicare Exam - to day we [...] DOPA paperwork for health care surrogate. . Bronchitis - acute case of bronchitis [...] doing well-due for a new machine-will call [facility] to see what we need [...] response to medications. DM-too early for Hgb [id number] to have done next week . Hypertension [...] response to medications. Generalized OA-handicap placard provided RETURN FOR FASTING L ABS . Diabetes [...] improved sleep, etc. Will fax note to [facility]. . Hypertension - con tinue with [...] TIMES WEEKLY CONTINUE STEROID CREAM ORDERED BY SPRINKLER HELPER CULTURE RASH LEFT AXILLA . Edema [...]
--- OUTSIDE RECORDS SUMMARY | 2019-04-11 03:45 | XMS REPORT | CCD ---
Author Author Cesar Tavares Organization Charlene Hoskins MD, 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 Name Role Phone PP Unavailable CCM Unavailable Summary Purpose Interface Exchange Insurance Providers Payer name Policy type / Coverage type Covered alliance party ID Effective Begin Date Effective End Date WPS Medicare Part B Medicare Part B [id number] Unknown [facility] Part B [id number] Un known Family history Brother Diagnosis Age [...] Retir ed 08/07/[address]: 3372241 Quit over 10 years ago 1970 08/07/[address]: 239372921 Never drinks alcohol 08/07/2015 Allergies, Adverse Reactions, [...] Instructions montelukast 10 mg ta blet RxNorm: 474960 TAKE ONE TABLET BY [facility] ONCE DAILY 03/15/2018 No Stop Date Active Advair Diskus 250 mc g-50 mcg/dose powder for inhalation RxNorm: 4827438 INHALE 1 DOSE BY MOUTH TWICE DAILY 02/20/2018 No Stop Date Active fluticasone 50 mcg/a ctuation nasal spray,suspension RxNorm: 6858033 USE 2 SPRAY(S) IN EACH NOSTRIL ONCE DAILY 02/08/2018 No Stop Date Active metformin 500 mg tablet RxNorm: 978356 TAKE 1 TABLET BY MOUTH ONCE DAILY 01/16/2018 No Stop Date Active Advair Diskus 250 mc g-50 mcg/dose powder for inhalation RxNorm: 8769227 INHALE 1 DOSE BY MOUTH TWICE DAILY 12/19/2017 02/19/2018 Inactive meloxicam 7.5 mg tablet RxNorm: 745904 TAKE 1 TABLET BY MOUTH ONCE DAILY 12/01/2017 No Stop Date Active simvastatin 20 mg ta blet RxNorm: 730112 TAKE 1 TABLET BY MOUT H ONCE DAILY 11/14/2017 No Stop Date Active losartan 50 mg tablet RxNorm: 865447 TAKE ONE TABLET BY MOUTH ONCE DAILY 10/27/2017 No Stop Date Active Advair Diskus 250 mc g-50 mcg/dose powder for inhalation RxNorm: 0050384 INHALE 1 DOSE BY MOUTH TWICE DAILY 10/19/2017 12/18/2017 Inactive fluticasone 50 mcg/a ctuation nasal spray,suspension RxNorm: 7486163 USE TWO SPRAY(S) IN EACH NOSTRIL ONCE DAILY 10/19/2017 02/07/2018 Inactive Kenalog 40 mg/mL maggie pension for injection RxNorm: 1644551 1 Milliliter(s) Inj 08/25/2017 08/25/2017 In active meloxicam 7.5 mg tablet RxNorm: 688200 TAKE ONE TABLET BY MOUTH ONCE DAILY 06/06/2017 11/30/2017 In active simvastatin 20 mg ta blet RxNorm: 456825 TAKE ONE TABLET BY MO UTH ONCE DAILY 05/17/2017 11/13/2017 In active metformin 500 mg tablet RxNorm: 930119 TAKE ONE TABLET BY MOUTH ONCE DAILY 05/05/2017 01/15/2018 In active Advair Diskus 250 mc g-50 mcg/dose powder for inhalation RxNorm: 2488615 INHALE ONE DOSE BY MOUTH TWICE DAILY 04/19/2017 10/18/2017 Inactive Tamiflu 75 mg capsule RxNorm: 237073 1 Capsule(s) PO daily 03/25/2017 03/24/2017 Inactive Tamiflu 75 mg capsule RxNorm: 408484 1 Capsule(s) PO daily 03/25/2017 03/31/2017 Inactive montelukast 10 mg ta blet RxNorm: 619562 TAKE ONE TABLET BY MO UTH ONCE DAILY 03/21/2017 03/14/2018 In active losartan 50 mg tablet RxNorm: 181656 TAKE ONE TABLET BY MOUTH ONCE DAILY 01/27/2017 10/26/2017 In active fluticasone 50 mcg/a ctuation nasal spray,suspension RxNorm: 5193713 USE TWO SPRAY(S) IN EACH NOSTRIL ONCE DAILY 01/17/2017 10/18/2017 Inactive meloxicam 7.5 mg tablet RxNorm: 522057 TAKE ONE TABLET BY MOUTH ONCE DAILY 12/06/2016 06/03/2017 In active metformin 500 mg tablet RxNorm: 912941 Tablet(s) TAKE ONE TABLET BY MOUTH TWICE DAILY 11/30/2016 11/24/2017 Inactive simvastatin 20 mg ta blet RxNorm: 870017 TAKE ONE TABLET BY MO UTH ONCE DAILY 11/15/2016 05/13/2017 In active Advair Diskus 250 mc g-50 mcg/dose powder for inhalation RxNorm: 1485924 INHALE ONE PUFF BY MOUTH TWICE DAILY 10/22/2016 04/18/2017 Inactive ketoconazole 2 % [place] [facility] [place] RxNorm: 094528 1 Application TOP TIW 10/04/2016 10/17/2016 Inactive fluticasone 50 mcg/a ctuation nasal spray,suspension RxNorm: 9970360 USE TWO SPRAY(S) IN EACH NOSTRIL ONCE DAILY 09/21/2016 11/19/2016 Inactive montelukast 10 mg ta blet RxNorm: 958781 TAKE ONE TABLET BY MO UTH ONCE DAILY 09/21/2016 03/19/2017 In active losartan 50 mg tablet RxNorm: 539520 TAKE ONE TABLET BY MOUTH ONCE DAILY 08/02/2016 01/26/2017 In active metformin 500 mg tablet RxNorm: 353349 TAKE ONE TABLET BY MOUTH TWICE DAILY 07/22/2016 10/19/2016 In active furosemide 20 mg tablet RxNorm: 149574 1 Tablet(s) PO daily as needed for swell ing 07/21/2016 10/18/2016 Inactive meloxicam 7.5 mg tablet RxNorm: 448562 TAKE ONE TABLET BY MOUTH ONCE DAILY 06/08/2016 12/04/2016 In active cefdinir 300 mg capsule RxNorm: 998371 1 Capsule(s) PO BID 04/29/2016 05/05/2016 Inactive prednisone 20 mg tablet RxNorm: 571889 1 Tablet(s) PO BID 04/29/2016 05/03/2016 Inactive Zithromax Z-Sherif 250 mg tablet RxNorm: 401341 1 Tablet(s) PO UD 04/21/2016 04/28/2016 Inactive Kenalog 40 mg/mL maggie pension for injection RxNorm: 7478604 1 Milliliter(s) Inj 04/21/2016 04/21/2016 In active montelukast 10 mg ta blet RxNorm: 562350 TAKE ONE TABLET BY [facility] ONCE DAILY 03/22/2016 09/17/2016 In active fluticasone 50 mcg/a ctuation nasal spray,suspension RxNorm: 2419417 2 Startex NASAL daily each nare 03/15/2016 07/12/2016 Inactive qs metformin 500 mg tablet RxNorm: 954394 1 Tablet(s) PO daily 01/16/2016 2016 Inactive Patient does not need a refill- just upd ate dosing simvastatin 40 mg ta blet RxNorm: 658388 1 Tablet(s) PO daily 01/01/2016 No Stop Date Active Advair Diskus 250 mc g-50 mcg/dose powder for inhalation RxNorm: 4005628 1 INH BID 01/01/2016 04/29/2016 In active Advair Diskus 250 mc g-50 mcg/dose powder for inhalation RxNorm: 4086492 1 INH daily 01/01/2016 12/31/2015 Inactive metformin 500 mg tablet RxNorm: 312983 1 Tablet(s) PO daily 01/01/2016 01/15/2016 Inactive azithromycin 250 mg tablet RxNorm: 223508 1 Tablet(s) PO take t wo pills on day #1, then one pill daily x 4 more days 01/01/2016 02/17/2016 Inactive meloxicam 7.5 mg tablet RxNorm: 845901 1 Tablet(s) PO daily 12/11/2015 06/07/2016 Inactive simvastatin 20 mg ta blet RxNorm: 117323 1 Tablet(s) PO daily 11/21/2015 12/31/2015 Inactive metformin 500 mg tablet RxNorm: 064674 1 Tablet(s) PO BID 11/21/2015 12/31/2015 Inactive Advair Diskus 250 mc g-50 mcg/dose powder for inhalation RxNorm: 6954253 1 INH BID 11/21/2015 12/31/2015 In active montelukast 10 mg ta blet RxNorm: 273516 1 Tablet(s) PO daily 09/25/2015 03/21/2016 Inactive losartan 50 mg tablet RxNorm: 041962 1 Tablet(s) PO daily 09/04/2015 08/01/2016 Inactive Restasis 0.05 % eye drops in a dropperette RxNorm: 637908 1 gtts OPH BID 08/07/2015 No Stop Date Active meloxicam 7.5 mg tablet RxNorm: 916371 1 Tablet(s) PO daily 08/07/2015 09/05/2015 Inactive Kay oral RxNorm: 000931 oral No Start Date Active finasteride 5 mg tablet RxNorm: 940771 1 Tablet(s) PO daily No Start Date Active Zyrtec 10 mg tablet RxNorm: 4245862 1 Tablet(s) PO daily No Start Date Active Co Q-10 200 mg capsule RxNorm: 484728 1 Capsule(s) PO daily No Start Date Active Calcium 500 + D (D3) oral RxNorm: 683681 oral No S tart Date Active simethicone 125 mg c apsule RxNorm: 336341 Capsule(s) PO as needed No Start Date Active Vitamin D3 1,000 uni t tablet RxNorm: 296817 1 Tablet(s) PO daily No Start Date Active omega-3 fatty acids 1,000 mg capsule RxNorm: 4 Capsule(s) PO daily No Start Date Active triamcinolone aceton chasity 0.1 % topical cream RxNorm: 6358658 1 TOP UD No Start Date Active fluticasone 50 mcg/a ctuation nasal spray,suspension RxNorm: 1838954 2 Startex NASAL daily each nare No Start Date 03/14/2016 Inactive losartan 50 mg tablet RxNorm: 950224 1 Tablet(s) PO daily No Start Date 09/03/2015 Inactive metformin 500 mg tablet RxNorm: 646971 1 Tablet(s) PO daily No Start Date 11/20/2015 Inactive simvastatin 40 mg ta blet RxNorm: 386291 1 Tablet(s) PO daily No Start Date 11/20/2015 Inactive furosemide 20 mg tablet RxNorm: 410120 1 Tablet(s) PO daily as needed No Start Date 07/20/2016 Inactive Advair Diskus 250 mc g-50 mcg/dose powder for inhalation RxNorm: 7462686 1 INH daily No Start Date 11/20/2015 Inactive Multiple Vitamin oral RxNorm: 31958 oral No Start Date 12/31/2015 Inactive montelukast 10 mg ta blet RxNorm: 876133 1 Tablet(s) PO daily No Start Date 09/24/2015 Inactive Medication Administered Medication Codes Instruc tions Start Date Status Kenalog 40 mg/mL suspension for injection RxNorm: 6501042 1Milliliter 08/25/2017 N o longer Active Kenalog 40 mg/mL suspension for injection RxNorm: 4994221 1Milliliter 04/21/2016 N o longer Active Immunizations [...] Code Item Item Code Result Date %Hba1C Ntg093 % HbA1c 57688-8 6.0 % 12/21/2017 %Hba1C Uql149 Gluc Ave 126 mg/dL 12/21/2017 %Hba1C Qjp930 % HbA1c 19823-9 6.2 % 04/20/2017 %Hba1C Ykt880 Gluc Ave 131 mg/dL 04/20/2017 Cbc With Differential Ord2 WBC 6.58 K/ul 04/20/2017 Cbc With Differential Ord2 RBC 4.21 M/ul 04/20/2017 Cbc With Differential Ord2 HGB 13.4 g/dl 04/20/2017 Cbc With Differential Ord2 Neut% 59.5 % 04/20/2017 Cbc With Differential Ord2 HCT 39.7 % 04/20/2017 Cbc With Differential Ord2 Lymph% 27.7 % 04/20/2017 Cbc With Differential Ord2 MCV 94.3 fl 04/20/2017 Cbc With Differential Ord2 [place]% 9.3 % 04/20/2017 Cbc With Differential Ord2 [...] 1.82 K/ul 04/20/2017 Cbc With Differential Ord2 [place] ABS# 0.6 K/ul 04/20/2017 Cbc With Differential Ord2 Eos ABS# 0.2 K/ul 04/20/2017 Cbc With Differential Ord2 Baso ABS# 0.0 K/ul 04/20/2017 Comp Metabolic Xjn260 NA 141 mEq/L 04/20/2017 Comp Metabolic Fgp295 K 4.5 mEq/L 04/20/2017 Comp Metabolic Mwr012 CL 106 mEq/L 04/20/2017 Comp Metabolic Mcn238 CO2 27.0 mEq/L 04/20/2017 Comp Metabolic Aoi789 AN ION GAP 13 04/20/2017 Comp Metabolic Yxf361 GL UCOSE 109 mg/dL 04/20/2017 Comp Metabolic Ggv449 Cr eat 1.0 mg/dL 04/20/2017 Comp Metabolic Yzl238 eG FR 81 ml/min/1.73m2 04/20 Comp Metabolic Lfj097 BUN 23 mg/dL 04/20/2017 Comp Metabolic Nhs876 B/ C Ratio 24.2 Ratio 04/20/2017 Comp Metabolic Xcj388 CA LCIUM 9.3 mg/dL 04/20/2017 Comp Metabolic Zbn964 AL K PHOS 82 U/L 04/20/2017 Comp Metabolic Cci366 T(SGOT) 22 U/L 04/20/2017 Comp Metabolic Url293 AL T(SGPT) 24 U/L 04/20/2017 Comp Metabolic Ldq116 BI LI T 0.4 mg/dL 04/20/2017 Comp Metabolic Fgs139 AL BUMIN 4.3 g/dL 04/20/2017 Comp Metabolic Uze532 TP RO 6.8 g/dL 04/20/2017 Comp Metabolic Rug722 GL OB 2.5 g/dL 04/20/2017 Comp Metabolic Xsc089 A/ G Ratio 1.7 Ratio 04/20/2017 Comp Metabolic Uki120 Os mo 286 mOsmo 04/20/2017 %Hba1C Boj861 % HbA1c 78972-0 5.8 % 10/22/2016 %Hba1C Mhs569 Gluc Ave 120 mg/dL 10/22/2016 Cbc With [...] 32.5 pg 10/22/2016 Cbc With Differential Ord2 [place]% 10.3 % 10/22/2016 Cbc With Differential Ord2 [...] 1.85 K/ul 10/22/2016 Cbc With Differential Ord2 [place] ABS# 0.8 K/ul 10/22/2016 Cbc With Differential Ord2 Eos ABS# 0.3 K/ul 10/22/2016 Cbc With Differential Ord2 Baso ABS# 0.0 K/ul 10/22/2016 Comp Metabolic Cgd327 NA 141 mEq/L 10/22/2016 Comp Metabolic Wcd343 K 4.4 mEq/L 10/22/2016 Comp Metabolic Irj272 CL 105 mEq/L 10/22/2016 Comp Metabolic Pxg038 CO2 27.0 mEq/L 10/22/2016 Comp Metabolic Mma402 AN ION GAP 13 10/22/2016 Comp Metabolic Ptq548 GL UCOSE 103 mg/dL 10/22/2016 Comp Metabolic Vvj008 Cr eat 1.0 mg/dL 10/22/2016 Comp Metabolic Qsv114 eG FR 76 ml/min/1.73m2 10/22 Comp Metabolic Pot075 BUN 27 mg/dL 10/22/2016 Comp Metabolic Wji570 B/ C Ratio 27.0 Ratio 10/22/2016 Comp Metabolic Xtx767 CA LCIUM 9.3 mg/dL 10/22/2016 Comp Metabolic Daf510 AL K PHOS 72 U/L 10/22/2016 Comp Metabolic Miw084 T(SGOT) 23 U/L 10/22/2016 Comp Metabolic Vgw481 AL T(SGPT) 26 U/L 10/22/2016 Comp Metabolic Zfy794 BI LI T 0.4 mg/dL 10/22/2016 Comp Metabolic Fbu731 AL BUMIN 4.2 g/dL 10/22/2016 Comp Metabolic Khj830 TP RO 6.7 g/dL 10/22/2016 Comp Metabolic Esb205 GL OB 2.5 g/dL 10/22/2016 Comp Metabolic Vfc056 A/ G Ratio 1.6 Ratio 10/22/2016 Comp Metabolic Frq027 Os mo 287 mOsmo 10/22/2016 Comp Metabolic Gbi046 NA 143 mEq/L 06/17/2016 Comp Metabolic Qkq932 K 4.1 mEq/L 06/17/2016 Comp Metabolic Jni822 CL 108 mEq/L 06/17/2016 Comp Metabolic Mjk364 CO2 28.0 mEq/L 06/17/2016 Comp Metabolic Ibb849 AN ION GAP 11 06/17/2016 Comp Metabolic Yof985 GL UCOSE 106 mg/dL 06/17/2016 Comp Metabolic Efe407 Cr eat 0.9 mg/dL 06/17/2016 Comp Metabolic Gsw360 eG FR 92 ml/min/1.73m2 06/17 Comp Metabolic Ybe565 BUN 22 mg/dL 06/17/2016 Comp Metabolic Nkh348 B/ C Ratio 25.9 Ratio 06/17/2016 Comp Metabolic Zoi577 CA LCIUM 8.8 mg/dL 06/17/2016 Comp Metabolic Tna704 AL K PHOS 55 U/L 06/17/2016 Comp Metabolic Slf030 T(SGOT) 21 U/L 06/17/2016 Comp Metabolic Rwa070 AL T(SGPT) 24 U/L 06/17/2016 Comp Metabolic Wii087 BI LI T 0.6 mg/dL 06/17/2016 Comp Metabolic Tkt523 AL BUMIN 4.0 g/dL 06/17/2016 Comp Metabolic Tyb969 TP RO 6.2 g/dL 06/17/2016 Comp Metabolic Bis118 GL OB 2.2 g/dL 06/17/2016 Comp Metabolic Xch305 A/ G Ratio 1.8 Ratio 06/17/2016 Comp Metabolic Hew849 Os mo 289 mOsmo 06/17/2016 Lipid Ord30 CHOL 163 mg/dL 06/17/2016 Lipid Ord30 HDL 54.0 mg/dl 06/17/2016 Lipid Ord30 TRIG 133 mg/dL 06/17/2016 Lipid Ord30 LDL 82 mg/dL 06/17/2016 Lipid Ord30 C/HDL 3.0 Ratio 06/17/2016 %Hba1C Wzs152 % HbA1c 35433-7 6.0 % 06/17/2016 %Hba1C Quz103 Gluc Ave 126 mg/dL 06/17/2016 Total Psa [...] 29.6 % 06/17/2016 Cbc With Differential Ord2 [place]% 10.7 % 06/17/2016 Cbc With Differential Ord2 MCH 32.7 pg 06/17/2016 Cbc With Differential Ord2 Eos% 3.3 % 06/17/2016 Cbc With Differential Ord2 MCHC 34.2 pg 06/17/2016 Cbc With Differential Ord2 Baso% 0.2 % 06/17/2016 Cbc With Differential Ord2 PLT 211 K/ul 06/17/2016 Cbc With Differential Ord2 Neut ABS# 3.25 K/ul 06/17/2016 Cbc With Differential Ord2 RDW 14.1 % 06/17/2016 Cbc With Differential Ord2 Lymph ABS# 1.71 K/ul 06/17/2016 Cbc With Differential Ord2 [place] ABS# 0.6 K/ul 06/17/2016 Cbc With Differential Ord2 Eos ABS# 0.2 K/ul 06/17/2016 Cbc With Differential Ord2 Baso ABS# 0.0 K/ul 06/17/2016 Tsh Ord6 hTSH II 2.91 uIU/mL 06/17/2016 Tsh Ord6 hTSH II 2.45 uIU/mL 02/19/2016 %Hba1C Ttr371 % HbA1c 28257-2 5.8 % 02/19/2016 %Hba1C Twr299 Gluc Ave 120 mg/dL 02/19/2016 Comp Metabolic Txz770 NA 141 mEq/L 02/19/2016 Comp Metabolic Xsq926 K 4.2 mEq/L 02/19/2016 Comp Metabolic Aqv378 CL 107 mEq/L 02/19/2016 Comp Metabolic Cof123 CO2 29.0 mEq/L 02/19/2016 Comp Metabolic Bmz382 AN ION GAP 9 02/19/2016 Comp Metabolic Ant617 GL UCOSE 106 mg/dL 02/19/2016 Comp Metabolic Wdk666 Cr eat 0.9 mg/dL 02/19/2016 Comp Metabolic Ewj379 eG FR 90 ml/min/1.73m2 02/18 Comp Metabolic Tbt178 BUN 24 mg/dL 02/19/2016 Comp Metabolic Lpq413 B/ C Ratio 27.6 Ratio 02/19/2016 Comp Metabolic Ipg320 CA LCIUM 9.1 mg/dL 02/19/2016 Comp Metabolic Tzx759 AL K PHOS 67 U/L 02/19/2016 Comp Metabolic Ckj137 T(SGOT) 25 U/L 02/19/2016 Comp Metabolic Aql730 AL T(SGPT) 31 U/L 02/19/2016 Comp Metabolic Cni877 BI LI T 0.6 mg/dL 02/19/2016 Comp Metabolic Ipr396 AL BUMIN 4.1 g/dL 02/19/2016 Comp Metabolic Zvf144 TP RO 6.5 g/dL 02/19/2016 Comp Metabolic Gtj271 GL OB 2.4 g/dL 02/19/2016 Comp Metabolic Ozp806 A/ G Ratio 1.7 Ratio 02/19/2016 Comp Metabolic Jzv908 Os mo 286 mOsmo 02/19/2016 Cbc With [...] 31.7 pg 02/19/2016 Cbc With Differential Ord2 [place]% 10.5 % 02/19/2016 Cbc With Differential Ord2 [...] 1.59 K/ul 02/19/2016 Cbc With Differential Ord2 [place] ABS# 0.6 K/ul 02/19/2016 Cbc With Differential Ord2 Eos ABS# 0.3 K/ul 02/19/2016 Cbc With Differential Ord2 Baso ABS# 0.0 K/ul 02/19/2016 Lipid Ord30 CHOL 174 mg/dL 02/19/2016 Lipid Ord30 HDL 54.0 mg/dl 02/19/2016 Lipid Ord30 TRIG 110 mg/dL 02/19/2016 Lipid Ord30 LDL 98 mg/dL 02/19/2016 Lipid Ord30 C/HDL 3.2 Ratio 02/19/2016 %Hba1C Mmf381 % HbA1c 55067-9 6.0 % 11/11/2015 %Hba1C Irk270 Gluc Ave 126 mg/dL 11/11/2015 %Hba1C Egg036 % HbA1c 15699-3 6.0 % 11/07/2015 %Hba1C Afc882 Gluc Ave 126 mg/dL 11/07/2015 Cbc With Differential Ord2 WBC 5.97 K/ul 11/06/2015 Cbc With Differential Ord2 RBC 4.19 M/ul 11/06/2015 Cbc With Differential Ord2 HGB 13.4 g/dl 11/06/2015 Cbc With Differential Ord2 Neut% 55.0 % 11/06/2015 Cbc With Differential Ord2 HCT 39.3 % 11/06/2015 Cbc With Differential Ord2 MCV 93.8 fl 11/06/2015 Cbc With Differential Ord2 Lymph% 30.0 % 11/06/2015 Cbc With Differential Ord2 [place]% 9.5 % 11/06/2015 Cbc With Differential Ord2 [...] 1.79 K/ul 11/06/2015 Cbc With Differential Ord2 [place] ABS# 0.6 K/ul 11/06/2015 Cbc With Differential Ord2 Eos ABS# 0.3 K/ul 11/06/2015 Cbc With Differential Ord2 Baso ABS# 0.0 K/ul 11/06/2015 Comp Metabolic Rkn801 NA 141 mEq/L 11/06/2015 Comp Metabolic Egx483 K 4.3 mEq/L 11/06/2015 Comp Metabolic Rfh628 CL 107 mEq/L 11/06/2015 Comp Metabolic Gqj351 CO2 28.0 mEq/L 11/06/2015 Comp Metabolic Eem734 AN ION GAP 10 11/06/2015 Comp Metabolic Xeb865 GL UCOSE 117 mg/dL 11/06/2015 Comp Metabolic Xpl780 Cr eat 0.9 mg/dL 11/06/2015 Comp Metabolic Cfz081 eG FR 88 ml/min/1.73m2 11/05 Comp Metabolic Czx198 BUN 22 mg/dL 11/06/2015 Comp Metabolic Ssn890 B/ C Ratio 25.0 Ratio 11/06/2015 Comp Metabolic Pqe730 CA LCIUM 9.1 mg/dL 11/06/2015 Comp Metabolic Zcb544 AL K PHOS 59 U/L 11/06/2015 Comp Metabolic Gbb010 T(SGOT) 23 U/L 11/06/2015 Comp Metabolic Wpj844 AL T(SGPT) 26 U/L 11/06/2015 Comp Metabolic Pkj126 BI LI T 0.6 mg/dL 11/06/2015 Comp Metabolic Ows541 AL BUMIN 4.0 g/dL 11/06/2015 Comp Metabolic Mhu339 TP RO 6.4 g/dL 11/06/2015 Comp Metabolic Rur757 GL OB 2.4 g/dL 11/06/2015 Comp Metabolic Lfk841 A/ G Ratio 1.7 Ratio 11/06/2015 Comp Metabolic Cxu402 Os mo 286 mOsmo 11/06/2015 Tsh Ord6 hTSH II 2.59 uIU/mL 11/06/2015 Lipid Ord30 CHOL 159 mg/dL 11/06/2015 Lipid Ord30 HDL 42.0 mg/dl 11/06/2015 Lipid Ord30 TRIG 129 mg/dL 11/06/2015 Lipid Ord30 LDL 91 mg/dL 11/06/2015 Lipid Ord30 C/HDL 3.8 Ratio 11/06/2015 Comp Metabolic Ykp076 NA 140 mEq/L 08/08/2015 Comp Metabolic Sfo528 K 4.0 mEq/L 08/08/2015 Comp Metabolic Otd186 CL 108 mEq/L 08/08/2015 Comp Metabolic Bsv053 CO2 25.0 mEq/L 08/08/2015 Comp Metabolic Ehx956 AN ION GAP 11 08/08/2015 Comp Metabolic Bvg763 GL UCOSE 100 mg/dL 08/08/2015 Comp Metabolic Omp117 Cr eat 0.9 mg/dL 08/08/2015 Comp Metabolic Ytk647 eG FR 82 ml/min/1.73m2 08/07 Comp Metabolic Wrf205 BUN 19 mg/dL 08/08/2015 Comp Metabolic Vdm891 B/ C Ratio 20.2 Ratio 08/08/2015 Comp Metabolic Rbf418 CA LCIUM 8.5 mg/dL 08/08/2015 Comp Metabolic Ssb350 AL K PHOS 56 U/L 08/08/2015 Comp Metabolic Rpc733 T(SGOT) 18 U/L 08/08/2015 Comp Metabolic Mtf887 AL T(SGPT) 17 U/L 08/08/2015 Comp Metabolic Bfr470 BI LI T 0.7 mg/dL 08/08/2015 Comp Metabolic Cmx404 AL BUMIN 3.9 g/dL 08/08/2015 Comp Metabolic Ftb851 TP RO 6.2 g/dL 08/08/2015 Comp Metabolic Yqa315 GL OB 2.3 g/dL 08/08/2015 Comp Metabolic Aaf685 A/ G Ratio 1.7 Ratio 08/08/2015 Comp Metabolic Jbp031 Os mo 282 mOsmo 08/08/2015 Tsh Ord6 hTSH II 3.19 uIU/mL 08/08/2015 %Hba1C Rht583 % HbA1c 16910-7 5.7 % 08/08/2015 %Hba1C Vnz700 Gluc Ave 117 mg/dL 08/08/2015 Cbc With [...] 93.7 fl 08/08/2015 Cbc With Differential Ord2 [place]% 10.9 % 08/08/2015 Cbc With Differential Ord2 [...] 1.51 K/ul 08/08/2015 Cbc With Differential Ord2 [place] ABS# 0.6 K/ul 08/08/2015 Cbc With Differential [...] accomodation 10/22/2016 None Full Exam - General 1995 Ears/Nose/Throat [...] Procedure Codes Date DRAIN/INJECT JOINT/B URSA CPT-4: 57276 08/25/2017 PPPS, SUBSEQ VISIT CPT- 4: G0439 05/30/2017 ADMIN INFLUENZA VIRU S VAC CPT-4: G0008 12/21/2016 FLU VACC PRSV FREE I NC ANTIG CPT-4: 77799 12/21/2016 PPPS, SUBSEQ VISIT CPT- 4: G0439 05/21/2016 TRIAMCINOLONE ACET I [place] NOS CPT-4: J3301 04/21/2016 THER/PROPH/DIAG INJ SC/IM CPT-4: 07314 04/21/2016 DRAIN/INJECT JOINT/B URSA CPT-4: 33904 11/13/2015 PNEUMOCOCCAL VACC [address]: 31591164 CPT-4: 29795 11/13/2015 ADMIN PNEUMOCOCCAL V ACCINE SNOMED CT: 50076467 CPT-4: G0009 11/13/2015 ADMIN INFLUENZA VIRU S VAC CPT-4: G0008 11/11/2015 FLU VACC 4 AZUL 3 YRS PLUS IM SNOMED CT: 13802467 CPT-4: 34269 11/11/2015 Vital Signs Date Vital 12/21/2017 Blood Pressure 1: 132/56 Code: 8480-6 BMI: 25.7 Code: 43489-5 Heart Rate 1: 58 bpm Height: 5'7" SpO2: 93% Weight: 164 lbs 08/25/2017 Blood Pressure 1: 126/74 Code: 8480-6 BMI: 26.2 Code: 69828-5 Heart Rate 1: 70 bpm Height: 5'7" SpO2: 94% Weight: 167 lbs 05/30/2017 Blood Pressure 1: 120/66 Code: 8480-6 BMI: 26.6 Code: 25969-9 Heart Rate 1: 66 bpm Height: 5'7" SpO2: 95% Waist Measure (cm): 97 cm Weight: 170 lbs 04/20/2017 Blood Pressure 1: 138/78 Code: 8480-6 BMI: 26.6 Code: 50154-6 Heart Rate 1: 86 bpm Height: 5'7" SpO2: 96% Weight: 170 lbs 01/21/2017 Blood Pressure 1: 136/70 Code: 8480-6 BMI: 26.3 Code: 53766-1 Heart Rate 1: 79 bpm Height: 5'7" SpO2: 95% Weight: 168 lbs 10/22/2016 Blood Pressure 1: 134/72 Code: 8480-6 BMI: 26.3 Code: 00135-8 Heart Rate 1: 70 bpm Height: 5'7" SpO2: 95% Weight: 168 lbs 10/04/2016 Blood Pressure 1: 142/80 Code: 8480-6 BMI: 26.6 Code: 14484-6 Heart Rate 1: 72 bpm Height: 5'7" SpO2: 93% Weight: 170 lbs 06/18/2016 Blood Pressure 1: 132/76 Code: 8480-6 BMI: 26.2 Code: 46829-4 Heart Rate 1: 65 bpm Height: 5'7" SpO2: 95% Weight: 167 lbs 8 oz 05/21/2016 Blood Pressure 1: 126/76 Code: 8480-6 BMI: 26.0 Code: 15341-5 Heart Rate 1: 72 bpm Height: 5'7" SpO2: 98% Weight: 166 lbs 04/29/2016 Blood Pressure 1: 128/70 Code: 8480-6 BMI: 25.7 Code: 62039-9 Heart Rate 1: 67 bpm Height: 5'7" SpO2: 97% Temperature: 36.3 (C ) / 97.4 (F) Weight: 164 lbs 04/21/2016 Blood Pressure 1: 130/62 Code: 8480-6 BMI: 26.3 Code: 37035-9 Heart Rate 1: 74 bpm Height: 5'7" SpO2: 96% Temperature: 37.0 (C ) / 98.6 (F) Weight: 168 lbs 02/20/2016 Blood Pressure 1: 120/64 Code: 8480-6 BMI: 26.2 Code: 32838-4 Heart Rate 1: 65 bpm Height: 5'7" SpO2: 94% Weight: 167 lbs 01/01/2016 Blood Pressure 1: 106/60 Code: 8480-6 BMI: 25.7 Code: 16991-6 Heart Rate 1: 73 bpm Height: 5'7" SpO2: 98% Weight: 164 lbs 11/13/2015 Blood Pressure 1: 122/86 Code: 8480-6 BMI: 25.8 Code: 48961-1 Heart Rate 1: 80 bpm Height: 5'7" SpO2: 92% Weight: 165 lbs 11/07/2015 Blood Pressure 1: 118/64 Code: 8480-6 BMI: 25.8 Code: 75124-2 Heart Rate 1: 66 bpm Height: 5'7" SpO2: 95% Weight: 165 lbs 08/07/2015 Blood Pressure 1: 122/80 Code: 8480-6 BMI: 24.4 Code: 54524-5 Heart Rate 1: 74 bpm Height: 5'7" [...] Loca tion Codes Date EST. PATIENT, LEVEL IV Diagnosis: Type 2 diabetes mellitus without complications[ICD10: E11.9] Diagnosis: Essential (primary) hypertension[ICD10: I10] Diagnosis: Pain in right knee[ICD10: M25.561] Lakeisha Hoskins MD, [facility] CPT-4: 16600 12/21/2017 [id number] EST. PATIENT, LEVEL IV Diagnosis: Type 2 diabetes mellitus without complications[ICD10: E11.9] Diagnosis: Essential (primary) hypertension[ICD10: I10] Diagnosis: Pain in right knee[ICD10: M25.561] Lakeisha Hoskins MD, [facility] CPT-4: 28187 08/25/2017 [id number] EST. PATIENT, LEVEL IV Diagnosis: Type 2 diabetes mellitus without complications[ICD10: E11.9] Diagnosis: Essential (primary) hypertension[ICD10: I10] Lakeisha Hoskins MD, [facility] CPT-4: 68265 04/20/2017 ([id number]) 35519 EST. P ATIENT, LEVEL III Diagnosis: Essential (primary) hypertension[ICD10: I10] Diagnosis: Obstructive sleep apnea (adult) (pediatric)[ICD10: G47.33] Nancy Hoskins MD, [facility] CPT-4: 85120 01/21/2017 ([id number]) 36166 EST. P ATIENT, LEVEL IV Diagnosis: Essential (primary) hypertension[ICD10: I10] Diagnosis: Type 2 diabetes mellitus without complications[ICD10: E11.9] Diagnosis: Obstructive sleep apnea (adult) (pediatric)[ICD10: G47.33] Nancy Hoskins MD, [facility] CPT-4: 44950 10/22/2016 ([id number]) 56928 EST. P ATIENT, LEVEL III Diagnosis: Localized edema[ICD10: R60.0] Diagnosis: Rash and other nonspecific skin eruption[ICD10: R21] Nancy Hoskins MD, [facility] CPT-4: 36125 10/04/2016 ([id number]) 40068 EST. P ATIENT, LEVEL IV Diagnosis: Essential (primary) hypertension[ICD10: I10] Diagnosis: Type 2 diabetes mellitus without complications[ICD10: E11.9] Diagnosis: Mixed hyperlipidemia[ICD10: E78.2] Nancy Hoskins MD, [facility] CPT-4: 34030 06/18/2016 ([id number]) 54435 EST. P ATIENT, LEVEL III Diagnosis: Cough[ICD10: R05] Diagnosis: Acute bronchitis, unspecified[ICD10: J20.9] Nancy Hoskins MD, [facility] CPT-4: 44775 04/29/2016 [id number] EST. PATIENT, LEVEL IV Diagnosis: Other acute sinusitis[ICD10: J01.80] Diagnosis: Other allergic rhinitis[ICD10: J30.89] Lakeisha Hoskins MD, [facility] CPT-4: 60995 04/21/2016 ([id number]) 20750 EST. P ATIENT, LEVEL IV Diagnosis: Essential (primary) hypertension[ICD10: I10] Diagnosis: Type 2 diabetes mellitus without complications[ICD10: E11.9] Diagnosis: Mixed hyperlipidemia[ICD10: E78.2] Diagnosis: Primary generalized (osteo)arthritis[ICD10: M15.0] Nancy Hoskins MD, [facility] CPT-4: 23322 02/20/2016 ([id number]) [id number] EST. P ATIENT, LEVEL IV Diagnosis: Cough[ICD10: R05] Diagnosis: Acute bronchitis due to Hemophilus influenzae[ICD10: J20.1] Diagnosis: Type 2 diabetes mellitus without complications[ICD10: E11.9] Diagnosis: Essential (primary) hypertension[ICD10: I10] Charlene Hoskins MD, C CPT-4: 09647 01/01/2016 [id number] EST. P ATIENT, LEVEL IV Diagnosis: Essential (primary) hypertension[ICD10: I10] Diagnosis: Mixed hyperlipidemia[ICD10: E78.2] Diagnosis: Type 2 diabetes mellitus without complications[ICD10: E11.9] Nancy Hoskins MD, [facility] CPT-4: 87177 11/07/2015 OFFICE VISIT, NEW - LEVEL 4 Diagnosis: Type 2 diabetes mellitus without complications[ICD10: E11.9] Diagnosis: Essential (primary) hypertension[ICD10: I10] Diagnosis: Mixed hyperlipidemia[ICD10: E78.2] Diagnosis: Elevated prostate specific antigen [PSA][ICD10: R97.2] Nancy Hoskins MD, [facility] CPT-4: 78553 08/07/2015 Plan of Care Planned Activity Notes [...] not improve. 12/21/2017 Appointment: Lakeisha Putnam WPtel: [address] [place], [place] [phone] (15 min) Moderate 12/21/2017 Patient Education: Patient [...] of injection. 08/25/2017 Appointment: Lakeisha Putnam WPtel: [address] [place], [place] [phone] (15 min) Moderate 08/25/2017 Patient Education: Patient [...] Summary Completed 05/30/2017 Appointment: Lakeisha Putnam WPtel: [facility] [facility] - Annual Wellness Visit 05/27/2017 Appointment: Nancy Tavares WPtel: [facility]5 [phone] (30 min) Complex 04/22/2017 Visit Plan: [...] controlled. 04/20/2017 [facility]ment[phone] [facility] (30 min) Complex 04/20/2017 Patient Education: Patient [...] improved sleep, etc. Will fax note to [facility]. 01/21/2017 Appointment: [phone] (30 min) Complex 01/21/2017 Appointment: [phone] (30 min) Complex 01/21/2017 Patient Education: Patient [...] doing well-due for a new machine-will call [facility] to see what we need to do to get him a new machine. 10/22/2016 Appointment: Nancy Tavares WPtel: [phone] [phone] (30 min) Complex 10/22/2016 Patient Education: [...] 10/04/2016 App[facility]ment: [phone] (15 min) Moderate 10/04/2016 Patient Education: [...] me dications. 06/18/2016 Appointment: Nancy Tavares WPtel: [phone] (15 min) Moderate 06/18/2016 Patient Education: [...] acutely worsen. 04/29/2016 Appointment: Nancy Tavares WPtel: [phone] [place] (15 min) Moderate 04/29/2016 Patient Education: Patient Medication Summary Completed 04/29/2016 Care Plan: CHEST X-RAY 2VW FRONTAL&LATL LOINC : [id number] Pending 04/29/2016 Visit Plan: Sinusitis - Pt [...] spray. 04/21/2016 Appointment: Lake[facility] Putnam [facility]Ptel[facility] [phone] [facility] [place] (15 min) Moderate 04/21/2016 Patient Education: [...] provided 02/20/2016 Appointment: Nancy Tavares WPtel: [phone] [phone] (30 min) Complex 02/20/2016 Patient Education: [...] Appointment: Charlene Hoskins WPtel: [phone] [phone] (15 min) Moderate 01/01/2016 Patient Education: Patient [...] of injection. 11/13/2015 Appointment: Nancy Tavares WPtel: [phone] (15 min) Moderate 11/13/2015 Patient Education: [...] response to medications. DM-too early for Hgb [id number] to have done next week 11/07/2015 Appointment: Nancy Tavares WPtel: [phone] (15 min) Moderate 11/07/2015 Patient Education: [...] results 08/07/2015 Appointment: [facility]el[phone] New Patient 08/07/2015 Patient Education: Patient [...] pain occurs at the site of injection. CXR STOP SYMBICORT TWO PUFFS BID . [...] response to medications. DM-too early for Hgb [id number] to have done next week . Hypertension - con tinue with current [...] doing well-due for a new machine-will call [facility] to see what we need [...] improved sleep, etc. Will fax note to [facility]. 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 Edema [...]
--- OUTSIDE RECORDS SUMMARY | 2019-04-11 03:46 | XMS REPORT | CCD ---
Author Author Cesar Tavares Organization Charlene Hoskins MD, [facility] Address [address] [place] [address] Phone Care Team Providers Care Bisque Cleaner Name Role Phone PP Unavailable CCM Unavailable Summary Purpose Interface Exchange Insurance Providers Payer name Policy type / Coverage type Covered alliance party ID Effective Begin Date Effective End Date WPS Medicare Part B Medicare Part B [id number] Unknown [facility] Part B [id number] Un known Family history Brother Diagnosis Age [...] Retir ed 08/07/[address]: 6963405 Quit over 10 years ago 1970 08/07/[address]: 305246874 Never drinks alcohol 08/07/2015 Allergies, Adverse Reactions, [...] mc g-50 mcg/dose powder for inhalation RxNorm: 2479719 INHALE 1 DOSE BY MOUTH TWICE DAILY 02/20/2018 No Stop Date Active fluticasone 50 mcg/a ctuation nasal spray,suspension RxNorm: 2087043 USE 2 SPRAY(S) IN EACH NOSTRIL ONCE DAILY 02/08/2018 No Stop Date Active metformin 500 mg tablet RxNorm: 870477 TAKE 1 TABLET BY MOUTH ONCE DAILY 01/16/2018 No Stop Date Active Advair Diskus 250 mc g-50 mcg/dose powder for inhalation RxNorm: 1177041 INHALE 1 DOSE BY MOUTH TWICE DAILY 12/19/2017 02/19/2018 Inactive meloxicam 7.5 mg tablet RxNorm: 037984 TAKE 1 TABLET BY MOUTH ONCE DAILY 12/01/2017 No Stop Date Active simvastatin 20 mg ta blet RxNorm: 156426 TAKE 1 TABLET BY MOUT H ONCE DAILY 11/14/2017 No Stop Date Active losartan 50 mg tablet RxNorm: 780652 TAKE ONE TABLET BY MOUTH ONCE DAILY 10/27/2017 No Stop Date Active Advair Diskus 250 mc g-50 mcg/dose powder for inhalation RxNorm: 8043620 INHALE 1 DOSE BY MOUTH TWICE DAILY 10/19/2017 12/18/2017 Inactive fluticasone 50 mcg/a ctuation nasal spray,suspension RxNorm: 0814229 USE TWO SPRAY(S) IN EACH NOSTRIL ONCE DAILY 10/19/2017 02/07/2018 Inactive Kenalog 40 mg/mL maggie pension for injection RxNorm: 1589481 1 Milliliter(s) Inj 08/25/2017 08/25/2017 In active meloxicam 7.5 mg tablet RxNorm: 526021 TAKE ONE TABLET BY MOUTH ONCE DAILY 06/06/2017 11/30/2017 In active simvastatin 20 mg ta blet RxNorm: 360993 TAKE ONE TABLET BY MO UTH ONCE DAILY 05/17/2017 11/13/2017 In active metformin 500 mg tablet RxNorm: 684356 TAKE ONE TABLET BY MOUTH ONCE DAILY 05/05/2017 01/15/2018 In active Advair Diskus 250 mc g-50 mcg/dose powder for inhalation RxNorm: 0048450 INHALE ONE DOSE BY MOUTH TWICE DAILY 04/19/2017 10/18/2017 Inactive Tamiflu 75 mg capsule RxNorm: 880481 1 Capsule(s) PO daily 03/25/2017 03/24/2017 Inactive Tamiflu 75 mg capsule RxNorm: 371635 1 Capsule(s) PO daily 03/25/2017 03/31/2017 Inactive montelukast 10 mg ta blet RxNorm: 797200 TAKE ONE TABLET BY MO UTH ONCE DAILY 03/21/2017 No Stop Date Active losartan 50 mg tablet RxNorm: 539902 TAKE ONE TABLET BY MOUTH ONCE DAILY 01/27/2017 10/26/2017 In active fluticasone 50 mcg/a ctuation nasal spray,suspension RxNorm: 0404366 USE TWO SPRAY(S) IN EACH NOSTRIL ONCE DAILY 01/17/2017 10/18/2017 Inactive meloxicam 7.5 mg tablet RxNorm: 974339 TAKE ONE TABLET BY MOUTH ONCE DAILY 12/06/2016 06/03/2017 In active metformin 500 mg tablet RxNorm: 838687 Tablet(s) TAKE ONE TABLET BY MOUTH TWICE DAILY 11/30/2016 11/24/2017 Inactive simvastatin 20 mg ta blet RxNorm: 761821 TAKE ONE TABLET BY MO UT ONCE DAILY 11/15/2016 05/13/2017 In active Advair Diskus 250 mc g-50 mcg/dose powder for inhalation RxNorm: 7826762 INHALE ONE PUFF BY MOUTH TWICE DAILY 10/22/2016 04/18/2017 Inactive ketoconazole 2 % sha mpoo RxNorm: 303310 1 Application TOP TIW 10/04/2016 10/17/2016 Inactive fluticasone 50 mcg/a ctuation nasal spray,suspension RxNorm: 2061054 USE TWO SPRAY(S) IN EACH NOSTRIL ONCE DAILY 09/21/2016 11/19/2016 Inactive montelukast 10 mg ta blet RxNorm: 687504 TAKE ONE TABLET BY MO [facility] ONCE DAILY 09/21/2016 03/19/2017 In active losartan 50 mg tablet RxNorm: 677362 TAKE ONE TABLET BY MOUTH ONCE DAILY 08/02/2016 01/26/2017 In active metformin 500 mg tablet RxNorm: 376822 TAKE ONE TABLET BY MOUTH TWICE DAILY 07/22/2016 10/19/2016 In active furosemide 20 mg tablet RxNorm: 634714 1 Tablet(s) PO daily as needed for swell ing 07/21/2016 10/18/2016 Inactive meloxicam 7.5 mg tablet RxNorm: 246826 TAKE ONE TABLET BY MOUTH ONCE DAILY 06/08/2016 12/04/2016 In active cefdinir 300 mg capsule RxNorm: 112948 1 Capsule(s) PO BID 04/29/2016 05/05/2016 Inactive prednisone 20 mg tablet RxNorm: 831930 1 Tablet(s) PO BID 04/29/2016 05/03/2016 Inactive Zithromax Z-Sherif 250 mg tablet RxNorm: 345179 1 Tablet(s) PO UD 04/21/2016 04/28/2016 Inactive Kenalog 40 mg/mL maggie pension for injection RxNorm: 6920316 1 Milliliter(s) Inj 04/21/2016 04/21/2016 In active montelukast 10 mg ta blet RxNorm: 477233 TAKE ONE TABLET BY [facility] ONCE DAILY 03/22/2016 09/17/2016 In active fluticasone 50 mcg/a ctuation nasal spray,suspension RxNorm: 0061896 2 [place] NASAL daily each nare 03/15/2016 07/12/2016 Inactive qs metformin 500 mg tablet RxNorm: 731869 1 Tablet(s) PO daily 01/16/2016 2016 Inactive Patient does not need a refill- just upd ate dosing simvastatin 40 mg ta blet RxNorm: 304165 1 Tablet(s) PO daily 01/01/2016 No Stop Date Active Advair Diskus 250 mc g-50 mcg/dose powder for inhalation RxNorm: 4565202 1 INH BID 01/01/2016 04/29/2016 In active Advair Diskus 250 mc g-50 mcg/dose powder for inhalation RxNorm: 7459757 1 INH daily 01/01/2016 12/31/2015 Inactive metformin 500 mg tablet RxNorm: 109346 1 Tablet(s) PO daily 01/01/2016 01/15/2016 Inactive azithromycin 250 mg tablet RxNorm: 498789 1 Tablet(s) PO take t wo pills on day #1, then one pill daily x 4 more days 01/01/2016 02/17/2016 Inactive meloxicam 7.5 mg tablet RxNorm: 822483 1 Tablet(s) PO daily 12/11/2015 06/07/2016 Inactive simvastatin 20 mg ta blet RxNorm: 134372 1 Tablet(s) PO daily 11/21/2015 12/31/2015 Inactive metformin 500 mg tablet RxNorm: 742384 1 Tablet(s) PO BID 11/21/2015 12/31/2015 Inactive Advair Diskus 250 mc g-50 mcg/dose powder for inhalation RxNorm: 3209571 1 INH BID 11/21/2015 12/31/2015 In active montelukast 10 mg ta blet RxNorm: 214296 1 Tablet(s) PO daily 09/25/2015 03/21/2016 Inactive losartan 50 mg tablet RxNorm: 740279 1 Tablet(s) PO daily 09/04/2015 08/01/2016 Inactive Restasis 0.05 % eye drops in a dropperette RxNorm: 527584 1 gtts OPH BID 08/07/2015 No Stop Date Active meloxicam 7.5 mg tablet RxNorm: 364846 1 Tablet(s) PO daily 08/07/2015 09/05/2015 Inactive Kay oral RxNorm: 086298 oral No Start Date Active finasteride 5 mg tablet RxNorm: 344972 1 Tablet(s) PO daily No Start Date Active Zyrtec 10 mg tablet RxNorm: 4118851 1 Tablet(s) PO daily No Start Date Active Co Q-10 200 mg capsule RxNorm: 963552 1 Capsule(s) PO daily No Start Date Active Calcium 500 + D (D3) oral RxNorm: 888721 oral No S tart Date Active simethicone 125 mg c apsule RxNorm: 574594 Capsule(s) PO as needed No Start Date Active Vitamin D3 1,000 uni t tablet RxNorm: 866501 1 Tablet(s) PO daily No Start Date Active omega-3 fatty acids 1,000 mg capsule RxNorm: 4 Capsule(s) PO daily No Start Date Active triamcinolone aceton chasity 0.1 % topical cream RxNorm: 3166504 1 TOP UD No Start Date Active fluticasone 50 mcg/a ctuation nasal spray,suspension RxNorm: 7749287 2 [place] NASAL daily each nare No Start Date 03/14/2016 Inactive losartan 50 mg tablet RxNorm: 471794 1 Tablet(s) PO daily No Start Date 09/03/2015 Inactive metformin 500 mg tablet RxNorm: 880972 1 Tablet(s) PO daily No Start Date 11/20/2015 Inactive simvastatin 40 mg ta blet RxNorm: 142542 1 Tablet(s) PO daily No Start Date 11/20/2015 Inactive furosemide 20 mg tablet RxNorm: 801223 1 Tablet(s) PO daily as needed No Start Date 07/20/2016 Inactive Advair Diskus 250 mc g-50 mcg/dose powder for inhalation RxNorm: 2444646 1 INH daily No Start Date 11/20/2015 Inactive Multiple Vitamin oral RxNorm: 12044 oral No Start Date 12/31/2015 Inactive montelukast 10 mg ta blet RxNorm: 403548 1 Tablet(s) PO daily No Start Date 09/24/2015 Inactive Medication Administered Medication Codes Instruc tions Start Date Status Kenalog 40 mg/mL suspension for injection RxNorm: 2267755 1Milliliter 08/25/2017 N o longer Active Kenalog 40 mg/mL suspension for injection RxNorm: 2585008 1Milliliter 04/21/2016 N o longer Active Immunizations [...] Code Item Item Code Result Date %Hba1C Czc757 % HbA1c 23393-8 6.0 % 12/21/2017 %Hba1C Ekr493 Gluc Ave 126 mg/dL 12/21/2017 %Hba1C Axs755 % HbA1c 55430-5 6.2 % 04/20/2017 %Hba1C Aqz667 Gluc Ave 131 mg/dL 04/20/2017 Cbc With [...] 94.3 fl 04/20/2017 Cbc With Differential Ord2 Terry% 9.3 % 04/20/2017 Cbc With Differential Ord2 [...] 1.82 K/ul 04/20/2017 Cbc With Differential Ord2 Terry ABS# 0.6 K/ul 04/20/2017 Cbc With Differential Ord2 Eos ABS# 0.2 K/ul 04/20/2017 Cbc With Differential Ord2 Baso ABS# 0.0 K/ul 04/20/2017 Comp Metabolic Dwd935 NA 141 mEq/L 04/20/2017 Comp Metabolic Afo972 K 4.5 mEq/L 04/20/2017 Comp Metabolic Jgj294 CL 106 mEq/L 04/20/2017 Comp Metabolic Vxt243 CO2 27.0 mEq/L 04/20/2017 Comp Metabolic Tei347 AN ION GAP 13 04/20/2017 Comp Metabolic Wzb509 GL UCOSE 109 mg/dL 04/20/2017 Comp Metabolic Ttn169 Cr eat 1.0 mg/dL 04/20/2017 Comp Metabolic Kpx945 eG FR 81 ml/min/1.73m2 04/20 Comp Metabolic Bto983 BUN 23 mg/dL 04/20/2017 Comp Metabolic Mpt941 B/ C Ratio 24.2 Ratio 04/20/2017 Comp Metabolic Tlg928 CA LCIUM 9.3 mg/dL 04/20/2017 Comp Metabolic Acq984 AL K PHOS 82 U/L 04/20/2017 Comp Metabolic Slb075 T(SGOT) 22 U/L 04/20/2017 Comp Metabolic Pwu261 AL T(SGPT) 24 U/L 04/20/2017 Comp Metabolic Bek491 BI LI T 0.4 mg/dL 04/20/2017 Comp Metabolic Gyr136 AL BUMIN 4.3 g/dL 04/20/2017 Comp Metabolic Unv423 TP RO 6.8 g/dL 04/20/2017 Comp Metabolic Aox709 GL OB 2.5 g/dL 04/20/2017 Comp Metabolic Nzt107 A/ G Ratio 1.7 Ratio 04/20/2017 Comp Metabolic Rhi478 Os mo 286 mOsmo 04/20/2017 %Hba1C Esq881 % HbA1c 77747-9 5.8 % 10/22/2016 %Hba1C Zte409 Gluc Ave 120 mg/dL 10/22/2016 Cbc With [...] 32.5 pg 10/22/2016 Cbc With Differential Ord2 Terry% 10.3 % 10/22/2016 Cbc With Differential Ord2 [...] 1.85 K/ul 10/22/2016 Cbc With Differential Ord2 Terry ABS# 0.8 K/ul 10/22/2016 Cbc With Differential Ord2 Eos ABS# 0.3 K/ul 10/22/2016 Cbc With Differential Ord2 Baso ABS# 0.0 K/ul 10/22/2016 Comp Metabolic Jqk219 NA 141 mEq/L 10/22/2016 Comp Metabolic Bfr991 K 4.4 mEq/L 10/22/2016 Comp Metabolic Wzu894 CL 105 mEq/L 10/22/2016 Comp Metabolic Nfn010 CO2 27.0 mEq/L 10/22/2016 Comp Metabolic Ylr638 AN ION GAP 13 10/22/2016 Comp Metabolic Izp270 GL UCOSE 103 mg/dL 10/22/2016 Comp Metabolic Ump204 Cr eat 1.0 mg/dL 10/22/2016 Comp Metabolic Rrp523 eG FR 76 ml/min/1.73m2 10/22 Comp Metabolic Ddn863 BUN 27 mg/dL 10/22/2016 Comp Metabolic Sdj826 B/ C Ratio 27.0 Ratio 10/22/2016 Comp Metabolic Gaj224 CA LCIUM 9.3 mg/dL 10/22/2016 Comp Metabolic Dvz924 AL K PHOS 72 U/L 10/22/2016 Comp Metabolic Mle464 T(SGOT) 23 U/L 10/22/2016 Comp Metabolic Eqz436 AL T(SGPT) 26 U/L 10/22/2016 Comp Metabolic Wzx337 BI LI T 0.4 mg/dL 10/22/2016 Comp Metabolic Vfb373 AL BUMIN 4.2 g/dL 10/22/2016 Comp Metabolic Rua460 TP RO 6.7 g/dL 10/22/2016 Comp Metabolic Jtv348 GL OB 2.5 g/dL 10/22/2016 Comp Metabolic Xnr607 A/ G Ratio 1.6 Ratio 10/22/2016 Comp Metabolic Bcy337 Os mo 287 mOsmo 10/22/2016 Comp Metabolic Wbz824 NA 143 mEq/L 06/17/2016 Comp Metabolic Sqk585 K 4.1 mEq/L 06/17/2016 Comp Metabolic Fxf363 CL 108 mEq/L 06/17/2016 Comp Metabolic Fmc582 CO2 28.0 mEq/L 06/17/2016 Comp Metabolic Odl254 AN ION GAP 11 06/17/2016 Comp Metabolic Pbi240 GL UCOSE 106 mg/dL 06/17/2016 Comp Metabolic Avi030 Cr eat 0.9 mg/dL 06/17/2016 Comp Metabolic Phd481 eG FR 92 ml/min/1.73m2 06/17 Comp Metabolic Sjq011 BUN 22 mg/dL 06/17/2016 Comp Metabolic Vja768 B/ C Ratio 25.9 Ratio 06/17/2016 Comp Metabolic Jpm674 CA LCIUM 8.8 mg/dL 06/17/2016 Comp Metabolic Pvt136 AL K PHOS 55 U/L 06/17/2016 Comp Metabolic Bsg719 T(SGOT) 21 U/L 06/17/2016 Comp Metabolic Siz216 AL T(SGPT) 24 U/L 06/17/2016 Comp Metabolic Szw349 BI LI T 0.6 mg/dL 06/17/2016 Comp Metabolic Nnm665 AL BUMIN 4.0 g/dL 06/17/2016 Comp Metabolic Bjw517 TP RO 6.2 g/dL 06/17/2016 Comp Metabolic Lrz938 GL OB 2.2 g/dL 06/17/2016 Comp Metabolic Wue915 A/ G Ratio 1.8 Ratio 06/17/2016 Comp Metabolic Gsr914 Os mo 289 mOsmo 06/17/2016 Lipid Ord30 CHOL 163 mg/dL 06/17/2016 Lipid Ord30 HDL 54.0 mg/dl 06/17/2016 Lipid Ord30 TRIG 133 mg/dL 06/17/2016 Lipid Ord30 LDL 82 mg/dL 06/17/2016 Lipid Ord30 C/HDL 3.0 Ratio 06/17/2016 %Hba1C Rhj676 % HbA1c 91330-3 6.0 % 06/17/2016 %Hba1C Rjo338 Gluc Ave 126 mg/dL 06/17/2016 Total Psa [...] 29.6 % 06/17/2016 Cbc With Differential Ord2 Terry% 10.7 % 06/17/2016 Cbc With Differential Ord2 [...] 1.71 K/ul 06/17/2016 Cbc With Differential Ord2 Terry ABS# 0.6 K/ul 06/17/2016 Cbc With Differential Ord2 Eos ABS# 0.2 K/ul 06/17/2016 Cbc With Differential Ord2 Baso ABS# 0.0 K/ul 06/17/2016 Tsh Ord6 hTSH II 2.91 uIU/mL 06/17/2016 Tsh Ord6 hTSH II 2.45 uIU/mL 02/19/2016 %Hba1C Ece771 % HbA1c 54490-4 5.8 % 02/19/2016 %Hba1C Rac538 Gluc Ave 120 mg/dL 02/19/2016 Comp Metabolic Hoc051 NA 141 mEq/L 02/19/2016 Comp Metabolic Ttb487 K 4.2 mEq/L 02/19/2016 Comp Metabolic Ugt826 CL 107 mEq/L 02/19/2016 Comp Metabolic Dtm299 CO2 29.0 mEq/L 02/19/2016 Comp Metabolic Hlo782 AN ION GAP 9 02/19/2016 Comp Metabolic Bpx456 GL UCOSE 106 mg/dL 02/19/2016 Comp Metabolic Yam521 Cr eat 0.9 mg/dL 02/19/2016 Comp Metabolic Lmd327 eG FR 90 ml/min/1.73m2 02/18 Comp Metabolic Snw144 BUN 24 mg/dL 02/19/2016 Comp Metabolic Acp725 B/ C Ratio 27.6 Ratio 02/19/2016 Comp Metabolic Hor681 CA LCIUM 9.1 mg/dL 02/19/2016 Comp Metabolic Fvk104 AL K PHOS 67 U/L 02/19/2016 Comp Metabolic Cjo230 T(SGOT) 25 U/L 02/19/2016 Comp Metabolic Cac196 AL T(SGPT) 31 U/L 02/19/2016 Comp Metabolic Zxo712 BI LI T 0.6 mg/dL 02/19/2016 Comp Metabolic Pnt583 AL BUMIN 4.1 g/dL 02/19/2016 Comp Metabolic Uvv050 TP RO 6.5 g/dL 02/19/2016 Comp Metabolic Jyc144 GL OB 2.4 g/dL 02/19/2016 Comp Metabolic Kok016 A/ G Ratio 1.7 Ratio 02/19/2016 Comp Metabolic Mvl598 Os mo 286 mOsmo 02/19/2016 Cbc With [...] 31.7 pg 02/19/2016 Cbc With Differential Ord2 Terry% 10.5 % 02/19/2016 Cbc With Differential Ord2 [...] 1.59 K/ul 02/19/2016 Cbc With Differential Ord2 Terry ABS# 0.6 K/ul 02/19/2016 Cbc With Differential Ord2 Eos ABS# 0.3 K/ul 02/19/2016 Cbc With Differential Ord2 Baso ABS# 0.0 K/ul 02/19/2016 Lipid Ord30 CHOL 174 mg/dL 02/19/2016 Lipid Ord30 HDL 54.0 mg/dl 02/19/2016 Lipid Ord30 TRIG 110 mg/dL 02/19/2016 Lipid Ord30 LDL 98 mg/dL 02/19/2016 Lipid Ord30 C/HDL 3.2 Ratio 02/19/2016 %Hba1C Cjk964 % HbA1c 39447-1 6.0 % 11/11/2015 %Hba1C Ddo211 Gluc Ave 126 mg/dL 11/11/2015 %Hba1C Zfg451 % HbA1c 57863-3 6.0 % 11/07/2015 %Hba1C Ujm915 Gluc Ave 126 mg/dL 11/07/2015 Cbc With [...] 30.0 % 11/06/2015 Cbc With Differential Ord2 Terry% 9.5 % 11/06/2015 Cbc With Differential Ord2 [...] 1.79 K/ul 11/06/2015 Cbc With Differential Ord2 Terry ABS# 0.6 K/ul 11/06/2015 Cbc With Differential Ord2 Eos ABS# 0.3 K/ul 11/06/2015 Cbc With Differential Ord2 Baso ABS# 0.0 K/ul 11/06/2015 Comp Metabolic Bjd303 NA 141 mEq/L 11/06/2015 Comp Metabolic Mqi757 K 4.3 mEq/L 11/06/2015 Comp Metabolic Ptb679 CL 107 mEq/L 11/06/2015 Comp Metabolic Izu951 CO2 28.0 mEq/L 11/06/2015 Comp Metabolic Voy269 AN ION GAP 10 11/06/2015 Comp Metabolic Hkv225 GL UCOSE 117 mg/dL 11/06/2015 Comp Metabolic Emy231 Cr eat 0.9 mg/dL 11/06/2015 Comp Metabolic Fft953 eG FR 88 ml/min/1.73m2 11/05 Comp Metabolic Fkc685 BUN 22 mg/dL 11/06/2015 Comp Metabolic Qml691 B/ C Ratio 25.0 Ratio 11/06/2015 Comp Metabolic Xoc494 CA LCIUM 9.1 mg/dL 11/06/2015 Comp Metabolic Zcd776 AL K PHOS 59 U/L 11/06/2015 Comp Metabolic Mgw577 T(SGOT) 23 U/L 11/06/2015 Comp Metabolic Dop475 AL T(SGPT) 26 U/L 11/06/2015 Comp Metabolic Itm540 BI LI T 0.6 mg/dL 11/06/2015 Comp Metabolic Bea324 AL BUMIN 4.0 g/dL 11/06/2015 Comp Metabolic Kyd231 TP RO 6.4 g/dL 11/06/2015 Comp Metabolic Qlk028 GL OB 2.4 g/dL 11/06/2015 Comp Metabolic Lyf678 A/ G Ratio 1.7 Ratio 11/06/2015 Comp Metabolic Fcn492 Os mo 286 mOsmo 11/06/2015 Tsh Ord6 hTSH II 2.59 uIU/mL 11/06/2015 Lipid Ord30 CHOL 159 mg/dL 11/06/2015 Lipid Ord30 HDL 42.0 mg/dl 11/06/2015 Lipid Ord30 TRIG 129 mg/dL 11/06/2015 Lipid Ord30 LDL 91 mg/dL 11/06/2015 Lipid Ord30 C/HDL 3.8 Ratio 11/06/2015 Comp Metabolic Tnj442 NA 140 mEq/L 08/08/2015 Comp Metabolic Byz562 K 4.0 mEq/L 08/08/2015 Comp Metabolic Abh822 CL 108 mEq/L 08/08/2015 Comp Metabolic Drl199 CO2 25.0 mEq/L 08/08/2015 Comp Metabolic Awx874 AN ION GAP 11 08/08/2015 Comp Metabolic Iuw340 GL UCOSE 100 mg/dL 08/08/2015 Comp Metabolic Njf214 Cr eat 0.9 mg/dL 08/08/2015 Comp Metabolic Dyr623 eG FR 82 ml/min/1.73m2 08/07 Comp Metabolic Lcb441 BUN 19 mg/dL 08/08/2015 Comp Metabolic Kax918 B/ C Ratio 20.2 Ratio 08/08/2015 Comp Metabolic Qaa481 CA LCIUM 8.5 mg/dL 08/08/2015 Comp Metabolic Dgh854 AL K PHOS 56 U/L 08/08/2015 Comp Metabolic Gvw184 T(SGOT) 18 U/L 08/08/2015 Comp Metabolic Ozz368 AL T(SGPT) 17 U/L 08/08/2015 Comp Metabolic Yui365 BI LI T 0.7 mg/dL 08/08/2015 Comp Metabolic Acv223 AL BUMIN 3.9 g/dL 08/08/2015 Comp Metabolic Bpa732 TP RO 6.2 g/dL 08/08/2015 Comp Metabolic Ffm376 GL OB 2.3 g/dL 08/08/2015 Comp Metabolic Zyz882 A/ G Ratio 1.7 Ratio 08/08/2015 Comp Metabolic Njv139 Os mo 282 mOsmo 08/08/2015 Tsh Ord6 hTSH II 3.19 uIU/mL 08/08/2015 %Hba1C Xkr560 % HbA1c 38315-2 5.7 % 08/08/2015 %Hba1C Llv422 Gluc Ave 117 mg/dL 08/08/2015 Cbc With [...] 93.7 fl 08/08/2015 Cbc With Differential Ord2 Terry% 10.9 % 08/08/2015 Cbc With Differential Ord2 [...] 1.51 K/ul 08/08/2015 Cbc With Differential Ord2 Terry ABS# 0.6 K/ul 08/08/2015 Cbc With Differential [...] rate 04/20/2017 None Full Exam - General 1995 Cardiovascular auscultation of heart Overall: normal heart sounds 04/20/2017 None Full Exam - General 1994 Cardiovascular auscultation of heart Systolic murmur: holosystolic 04/20/2017 None Full Exam - General 1994 Cardiovascular auscultation of heart Systolic murmur grade: II/ 04/20/2017 None Full Exam - General 1995 Abdomen abdominal exam Overall: no tenderness 04/20/2017 [...] Procedure Codes Date DRAIN/INJECT JOINT/B URSA CPT-4: 18336 08/25/2017 PPPS, SUBSEQ VISIT CPT- 4: G0439 05/30/2017 ADMIN INFLUENZA VIRU S VAC CPT-4: G0008 12/21/2016 FLU VACC PRSV FREE I NC ANTIG CPT-4: 86063 12/21/2016 PPPS, SUBSEQ VISIT CPT- 4: G0439 05/21/2016 TRIAMCINOLONE ACET I [place] NOS CPT-4: J3301 04/21/2016 THER/PROPH/DIAG INJ SC/IM CPT-4: 96707 04/21/2016 DRAIN/INJECT JOINT/B URSA CPT-4: 82818 11/13/2015 PNEUMOCOCCAL VACC [address]: 42597977 CPT-4: 72515 11/13/2015 ADMIN PNEUMOCOCCAL V ACCINE SNOMED CT: 41149524 CPT-4: G0009 11/13/2015 ADMIN INFLUENZA VIRU S VAC CPT-4: G0008 11/11/2015 FLU VACC 4 AZUL 3 YRS PLUS IM SNOMED CT: 99265532 CPT-4: 83886 11/11/2015 Vital Signs Date Vital 12/21/2017 Blood Pressure 1: 132/56 Code: 8480-6 BMI: 25.7 Code: 60538-9 Heart Rate 1: 58 bpm Height: 5'7" SpO2: 93% Weight: 164 lbs 08/25/2017 Blood Pressure 1: 126/74 Code: 8480-6 BMI: 26.2 Code: 20965-0 Heart Rate 1: 70 bpm Height: 5'7" SpO2: 94% Weight: 167 lbs 05/30/2017 Blood Pressure 1: 120/66 Code: 8480-6 BMI: 26.6 Code: 91483-7 Heart Rate 1: 66 bpm Height: 5'7" SpO2: 95% Waist Measure (cm): 97 cm Weight: 170 lbs 04/20/2017 Blood Pressure 1: 138/78 Code: 8480-6 BMI: 26.6 Code: 29865-9 Heart Rate 1: 86 bpm Height: 5'7" SpO2: 96% Weight: 170 lbs 01/21/2017 Blood Pressure 1: 136/70 Code: 8480-6 BMI: 26.3 Code: 96159-4 Heart Rate 1: 79 bpm Height: 5'7" SpO2: 95% Weight: 168 lbs 10/22/2016 Blood Pressure 1: 134/72 Code: 8480-6 BMI: 26.3 Code: 28816-9 Heart Rate 1: 70 bpm Height: 5'7" SpO2: 95% Weight: 168 lbs 10/04/2016 Blood Pressure 1: 142/80 Code: 8480-6 BMI: 26.6 Code: 59403-4 Heart Rate 1: 72 bpm Height: 5'7" SpO2: 93% Weight: 170 lbs 06/18/2016 Blood Pressure 1: 132/76 Code: 8480-6 BMI: 26.2 Code: 78775-6 Heart Rate 1: 65 bpm Height: 5'7" SpO2: 95% Weight: 167 lbs 8 oz 05/21/2016 Blood Pressure 1: 126/76 Code: 8480-6 BMI: 26.0 Code: 88314-3 Heart Rate 1: 72 bpm Height: 5'7" SpO2: 98% Weight: 166 lbs 04/29/2016 Blood Pressure 1: 128/70 Code: 8480-6 BMI: 25.7 Code: 08477-5 Heart Rate 1: 67 bpm Height: 5'7" SpO2: 97% Temperature: 36.3 (C ) / 97.4 (F) Weight: 164 lbs 04/21/2016 Blood Pressure 1: 130/62 Code: 8480-6 BMI: 26.3 Code: 89385-4 Heart Rate 1: 74 bpm Height: 5'7" SpO2: 96% Temperature: 37.0 (C ) / 98.6 (F) Weight: 168 lbs 02/20/2016 Blood Pressure 1: 120/64 Code: 8480-6 BMI: 26.2 Code: 49869-2 Heart Rate 1: 65 bpm Height: 5'7" SpO2: 94% Weight: 167 lbs 01/01/2016 Blood Pressure 1: 106/60 Code: 8480-6 BMI: 25.7 Code: 80293-3 Heart Rate 1: 73 bpm Height: 5'7" SpO2: 98% Weight: 164 lbs 11/13/2015 Blood Pressure 1: 122/86 Code: 8480-6 BMI: 25.8 Code: 03247-6 Heart Rate 1: 80 bpm Height: 5'7" SpO2: 92% Weight: 165 lbs 11/07/2015 Blood Pressure 1: 118/64 Code: 8480-6 BMI: 25.8 Code: 64631-3 Heart Rate 1: 66 bpm Height: 5'7" SpO2: 95% Weight: 165 lbs 08/07/2015 Blood Pressure 1: 122/80 Code: 8480-6 BMI: 24.4 Code: 57815-7 Heart Rate 1: 74 bpm Height: 5'7" [...] Encounters Encounter Performer Loca tion Codes Date [id number] EST. PATIENT, LEVEL IV Diagnosis: Type 2 diabetes mellitus without complications[ICD10: E11.9] Diagnosis: Essential (primary) hypertension[ICD10: I10] Diagnosis: Pain in right knee[ICD10: M25.561] Lakeisha Hoskins MD, [facility] CPT-4: 85451 12/21/2017 06643 EST. PATIENT, LEVEL IV Diagnosis: Type 2 diabetes mellitus without complications[ICD10: E11.9] Diagnosis: Essential (primary) hypertension[ICD10: I10] Diagnosis: Pain in right knee[ICD10: M25.561] Lakeisha Hoskins MD, [facility] CPT-4: 59772 08/25/2017 89617 EST. PATIENT, LEVEL IV Diagnosis: Type 2 diabetes mellitus without complications[ICD10: E11.9] Diagnosis: Essential (primary) hypertension[ICD10: I10] Lakeisha Hoskins MD, [facility] CPT-4: 89002 04/20/2017 ([id number]) 85929 EST. P ATIENT, LEVEL III Diagnosis: Essential (primary) hypertension[ICD10: I10] Diagnosis: Obstructive sleep apnea (adult) (pediatric)[ICD10: G47.33] Nancy Hoskins MD, [facility] CPT-4: 89380 01/21/2017 ([id number]) 99885 EST. P ATIENT, LEVEL IV Diagnosis: Essential (primary) hypertension[ICD10: I10] Diagnosis: Type 2 diabetes mellitus without complications[ICD10: E11.9] Diagnosis: Obstructive sleep apnea (adult) (pediatric)[ICD10: G47.33] Nancy Hoskins MD, [facility] CPT-4: 97162 10/22/2016 ([id number]) [id number] EST. P ATIENT, LEVEL III Diagnosis: Localized edema[ICD10: R60.0] Diagnosis: Rash and other nonspecific skin eruption[ICD10: R21] Nancy Hoskins MD, [facility] CPT-4: 78310 10/04/2016 ([id number]) [id number] EST. P ATIENT, LEVEL IV Diagnosis: Essential (primary) hypertension[ICD10: I10] Diagnosis: Type 2 diabetes mellitus without complications[ICD10: E11.9] Diagnosis: Mixed hyperlipidemia[ICD10: E78.2] Nancy Hoskins MD, [facility] CPT-4: 77011 06/18/2016 ([id number]) [id number] EST. P ATIENT, LEVEL III Diagnosis: Cough[ICD10: R05] Diagnosis: Acute bronchitis, unspecified[ICD10: J20.9] Nancy Hoskins MD, [facility] CPT-4: 23347 04/29/2016 [id number] EST. PATIENT, LEVEL IV Diagnosis: Other acute sinusitis[ICD10: J01.80] Diagnosis: Other allergic rhinitis[ICD10: J30.89] Lakeisha Hoskins MD, [facility] CPT-4: 13876 04/21/2016 ([id number]) 61037 EST. P ATIENT, LEVEL IV Diagnosis: Essential (primary) hypertension[ICD10: I10] Diagnosis: Type 2 diabetes mellitus without complications[ICD10: E11.9] Diagnosis: Mixed hyperlipidemia[ICD10: E78.2] Diagnosis: Primary generalized (osteo)arthritis[ICD10: M15.0] Nancy Hoskins MD, [facility] CPT-4: 25052 02/20/2016 ([id number]) 85664 EST. P ATIENT, LEVEL IV Diagnosis: Cough[ICD10: R05] Diagnosis: Acute bronchitis due to Hemophilus influenzae[ICD10: J20.1] Diagnosis: Type 2 diabetes mellitus without complications[ICD10: E11.9] Diagnosis: Essential (primary) hypertension[ICD10: I10] Charlene Hoskins MD, [facility] CPT-4: 97427 01/01/2016 ([id number]) [id number] EST. P ATIENT, LEVEL IV Diagnosis: Essential (primary) hypertension[ICD10: I10] Diagnosis: Mixed hyperlipidemia[ICD10: E78.2] Diagnosis: Type 2 diabetes mellitus without complications[ICD10: E11.9] [facility] CPT-4: 76423 11/07/2015 OFFICE VISIT, NEW - LEVEL 4 Diagnosis: Type 2 diabetes mellitus without complications[ICD10: E11.9] Diagnosis: Essential (primary) hypertension[ICD10: I10] Diagnosis: Mixed hyperlipidemia[ICD10: E78.2] Diagnosis: Elevated prostate specific antigen [PSA][ICD10: R97.2] [facility] CPT-4: 45647 08/07/2015 Plan of Care Planned Activity Notes [...] not improve. 12/21/2017 Appointment: Lakeisha Putnam WPtel: [address] [place], [place] [id number] (15 min) Moderate 12/21/2017 Patient Education: Patient [...] of injection. 08/25/2017 Appointment: Lakeisha Putnam WPtel: [facility]5 [facility] (15 min) Moderate 08/25/2017 Patient Education: [...] Summary Completed 05/30/2017 Appointment: Lakeisha Putnam [facility]Ptel: [facility] [facility] - Annual Wellness Visit 05/27/2017 Appointment: Nancy Tavares WPtel: [address] [place], [place] [phone] (30 min) Complex 04/22/2017 Visit Plan: Hypertension [...] 04/20/2017 Appointment: Lakeisha Putnam WPtel: [phone] [facility] (30 min) Complex 04/20/2017 Patient Education: [...] improved sleep, etc. Will fax note to [facility]. 01/21/2017 Appointment: [facility]avares [phone] (30 min) Complex 01/21/2017 Appointment: Nancy Tavares WPtel: [phone] [phone] (30 min) Complex 01/21/2017 Patient Education: [...] doing well-due for a new machine-will call [facility] to see what we need to do to get him a new machine. 10/22/2016 Appointment: Nancy Tavares WPtel: [phone] [phone] (30 min) Complex 10/22/2016 Patient Education: [...] me dications. 06/18/2016 Appointment: [facility]avares [phone] [phone] (15 min) Moderate 06/18/2016 Patient Education: Patient [...] acutely worsen. 04/29/2016 Appointment: Nancy Tavares WPtel: [phone] (15 min) Moderate 04/29/2016 Patient Education: Patient Medication Summary Completed 04/29/2016 Care Plan: CHEST X-RAY 2VW FRONTAL&LATL LOINC : 50530-0 Pending 04/29/2016 Visit Plan: Sinusitis - Pt [...] allergy spray. 04/21/2016 Appointment: Lakeisha Putnam [facility]Ptel[phone] [facility] (15 min) Moderate 04/21/2016 Patient Education: Patient [...] placard provided 02/20/2016 Appointment: [facility] Tavares [facility]el[phone] (30 min) Complex 02/20/2016 Patient Education: Patient [...] controlled. 01/01/2016 [phone] [place] (15 min) Moderate [...] injection. 11/13/2015 Appointment: Nancy Tavares [facility]Ptel[phone] (15 min) Moderate 11/13/2015 Patient Education: Patient [...] response to medications. DM-too early for Hgb [id number] to have done next week 11/07/2015 Appointment: Nancy Tavares [facility]Ptel: [phone] (15 min) Moderate 11/07/2015 Patient Education: Patient [...] biopsy results 08/07/2015 Appointment: Nancy Tavares WPtel: [phone] New Patient 08/07/2015 Patient Education: Patient Medication Summary Completed 08/07/2015 Instructions Comment RETURN FOR FASTING L ABS . Diabetes [...] response to medications. Elevated PSA-awaiting biopsy results COMPRESSION STOCKING S KETOCONAZOLE SHAMPOO THREE TIMES WEEKLY CONTINUE STEROID CREAM ORDERED BY DIRECTOR OF COUNTERINTELLIGENCE CULTURE RASH LEFT AXILLA . Edema - [...] response to medications. DM-too early for Hgb [id number] to have done next week . Hypertension [...] improved sleep, etc. Will fax note to [facility]. . Hypertension - con tinue with [...] doing well-due for a new machine-will call [facility] to see what we need to [...]
--- OUTSIDE RECORDS SUMMARY | 2019-04-11 03:47 | XMS REPORT | CCD ---
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 Name Role Phone PP Unavailable CCM Unavailable Summary Purpose Interface Exchange Insurance Providers Payer name Policy type / Coverage type Covered libertarian ID Effective Begin Date Effective End Date WPS Medicare Part B Medicare Part B [id number] Unknown [facility] Part B [id number] Un known Family history Brother Diagnosis Age [...] Retir ed 08/07/[address]: 2027664 Quit over 10 years ago 1970 08/07/[address]: 177713994 Never drinks alcohol 08/07/2015 Allergies, Adverse Reactions, [...] Z00.01 Active 05/21/2016 Unknown Obstructive sleep ap mkiel (adult) (pediatric) ICD-9: 327.23 ICD-10: G47.33 Active [...] fluticasone 50 mcg/a ctuation nasal spray,suspension RxNorm: 3460153 USE 2 SPRAY(S) IN EACH NOSTRIL ONCE DAILY 02/08/2018 No Stop Date Active metformin 500 mg tablet RxNorm: 805268 TAKE 1 TABLET BY MOUTH ONCE DAILY 01/16/2018 No Stop Date Active Advair Diskus 250 mc g-50 mcg/dose powder for inhalation RxNorm: 9792099 INHALE 1 DOSE BY MOUTH TWICE DAILY 12/19/2017 No Stop Date Active meloxicam 7.5 mg tablet RxNorm: 174252 TAKE 1 TABLET BY MOUTH ONCE DAILY 12/01/2017 No Stop Date Active simvastatin 20 mg ta blet RxNorm: 999830 TAKE 1 TABLET BY MOUT H ONCE DAILY 11/14/2017 No Stop Date Active losartan 50 mg tablet RxNorm: 225782 TAKE ONE TABLET BY MOUTH ONCE DAILY 10/27/2017 No Stop Date Active Advair Diskus 250 mc g-50 mcg/dose powder for inhalation RxNorm: 0995672 INHALE 1 DOSE BY MOUTH TWICE DAILY 10/19/2017 12/18/2017 Inactive fluticasone 50 mcg/a ctuation nasal spray,suspension RxNorm: 9038200 USE TWO SPRAY(S) IN EACH NOSTRIL ONCE DAILY 10/19/2017 02/07/2018 Inactive Kenalog 40 mg/mL maggie pension for injection RxNorm: 1651354 1 Milliliter(s) Inj 08/25/2017 08/25/2017 In active meloxicam 7.5 mg tablet RxNorm: 196459 TAKE ONE TABLET BY MOUTH ONCE DAILY 06/06/2017 11/30/2017 In active simvastatin 20 mg ta blet RxNorm: 369371 TAKE ONE TABLET BY MO UTH ONCE DAILY 05/17/2017 11/13/2017 In active metformin 500 mg tablet RxNorm: 684658 TAKE ONE TABLET BY MOUTH ONCE DAILY 05/05/2017 01/15/2018 In active Advair Diskus 250 mc g-50 mcg/dose powder for inhalation RxNorm: 7549512 INHALE ONE DOSE BY MOUTH TWICE DAILY 04/19/2017 10/18/2017 Inactive Tamiflu 75 mg capsule RxNorm: 635701 1 Capsule(s) PO daily 03/25/2017 03/24/2017 Inactive Tamiflu 75 mg capsule RxNorm: 593647 1 Capsule(s) PO daily 03/25/2017 03/31/2017 Inactive montelukast 10 mg ta blet RxNorm: 473372 TAKE ONE TABLET BY MO UTH ONCE DAILY 03/21/2017 No Stop Date Active losartan 50 mg tablet RxNorm: 666495 TAKE ONE TABLET BY MOUTH ONCE DAILY 01/27/2017 10/26/2017 In active fluticasone 50 mcg/a ctuation nasal spray,suspension RxNorm: 8348969 USE TWO SPRAY(S) IN EACH NOSTRIL ONCE DAILY 01/17/2017 10/18/2017 Inactive meloxicam 7.5 mg tablet RxNorm: 718414 TAKE ONE TABLET BY MOUTH ONCE DAILY 12/06/2016 06/03/2017 In active metformin 500 mg tablet RxNorm: 492908 Tablet(s) TAKE ONE TABLET BY MOUTH TWICE DAILY 11/30/2016 11/24/2017 Inactive simvastatin 20 mg ta blet RxNorm: 378832 TAKE ONE TABLET BY MO UT ONCE DAILY 11/15/2016 05/13/2017 In active Advair Diskus 250 mc g-50 mcg/dose powder for inhalation RxNorm: 1836320 INHALE ONE PUFF BY MOUTH TWICE DAILY 10/22/2016 04/18/2017 Inactive ketoconazole 2 % sha mpoo RxNorm: 903823 1 Application TOP TIW 10/04/2016 10/17/2016 Inactive fluticasone 50 mcg/a ctuation nasal spray,suspension RxNorm: 1599647 USE TWO SPRAY(S) IN EACH NOSTRIL ONCE DAILY 09/21/2016 11/19/2016 Inactive montelukast 10 mg ta blet RxNorm: 365663 TAKE ONE TABLET BY MO RIH ONCE DAILY 09/21/2016 03/19/2017 In active losartan 50 mg tablet RxNorm: 015011 TAKE ONE TABLET BY MOUTH ONCE DAILY 08/02/2016 01/26/2017 In active metformin 500 mg tablet RxNorm: 351864 TAKE ONE TABLET BY MOUTH TWICE DAILY 07/22/2016 10/19/2016 In active furosemide 20 mg tablet RxNorm: 833229 1 Tablet(s) PO daily as needed for swell ing 07/21/2016 10/18/2016 Inactive meloxicam 7.5 mg tablet RxNorm: 563478 TAKE ONE TABLET BY MOUTH ONCE DAILY 06/08/2016 12/04/2016 In active cefdinir 300 mg capsule RxNorm: 605811 1 Capsule(s) PO BID 04/29/2016 05/05/2016 Inactive prednisone 20 mg tablet RxNorm: 232257 1 Tablet(s) PO BID 04/29/2016 05/03/2016 Inactive Zithromax Z-Sherif 250 mg tablet RxNorm: 961871 1 Tablet(s) PO UD 04/21/2016 04/28/2016 Inactive Kenalog 40 mg/mL maggie pension for injection RxNorm: 7804769 1 Milliliter(s) Inj 04/21/2016 04/21/2016 In active montelukast 10 mg ta blet RxNorm: 622205 TAKE ONE TABLET BY [facility] ONCE DAILY 03/22/2016 09/17/2016 In active fluticasone 50 mcg/a ctuation nasal spray,suspension RxNorm: 1291386 2 [place] NASAL daily each nare 03/15/2016 07/12/2016 Inactive qs metformin 500 mg tablet RxNorm: 614849 1 Tablet(s) PO daily 01/16/2016 2016 Inactive Patient does not need a refill- just upd ate dosing simvastatin 40 mg ta blet RxNorm: 988331 1 Tablet(s) PO daily 01/01/2016 No Stop Date Active Advair Diskus 250 mc g-50 mcg/dose powder for inhalation RxNorm: 5561614 1 INH BID 01/01/2016 04/29/2016 In active Advair Diskus 250 mc g-50 mcg/dose powder for inhalation RxNorm: 8141542 1 INH daily 01/01/2016 12/31/2015 Inactive metformin 500 mg tablet RxNorm: 270861 1 Tablet(s) PO daily 01/01/2016 01/15/2016 Inactive azithromycin 250 mg tablet RxNorm: 939070 1 Tablet(s) PO take t wo pills on day #1, then one pill daily x 4 more days 01/01/2016 02/17/2016 Inactive meloxicam 7.5 mg tablet RxNorm: 284430 1 Tablet(s) PO daily 12/11/2015 06/07/2016 Inactive simvastatin 20 mg ta blet RxNorm: 664309 1 Tablet(s) PO daily 11/21/2015 12/31/2015 Inactive metformin 500 mg tablet RxNorm: 411162 1 Tablet(s) PO BID 11/21/2015 12/31/2015 Inactive Advair Diskus 250 mc g-50 mcg/dose powder for inhalation RxNorm: 5765601 1 INH BID 11/21/2015 12/31/2015 In active montelukast 10 mg ta blet RxNorm: 578725 1 Tablet(s) PO daily 09/25/2015 03/21/2016 Inactive losartan 50 mg tablet RxNorm: 161456 1 Tablet(s) PO daily 09/04/2015 08/01/2016 Inactive Restasis 0.05 % eye drops in a dropperette RxNorm: 525117 1 gtts OPH BID 08/07/2015 No Stop Date Active meloxicam 7.5 mg tablet RxNorm: 114457 1 Tablet(s) PO daily 08/07/2015 09/05/2015 Inactive Kay oral RxNorm: 728736 oral No Start Date Active finasteride 5 mg tablet RxNorm: 489421 1 Tablet(s) PO daily No Start Date Active Zyrtec 10 mg tablet RxNorm: 3800040 1 Tablet(s) PO daily No Start Date Active Co Q-10 200 mg capsule RxNorm: 727093 1 Capsule(s) PO daily No Start Date Active Calcium 500 + D (D3) oral RxNorm: 109062 oral No S tart Date Active simethicone 125 mg c apsule RxNorm: 635505 Capsule(s) PO as needed No Start Date Active Vitamin D3 1,000 uni t tablet RxNorm: 998889 1 Tablet(s) PO daily No Start Date Active omega-3 fatty acids 1,000 mg capsule RxNorm: 4 Capsule(s) PO daily No Start Date Active triamcinolone aceton chasity 0.1 % topical cream RxNorm: 3974348 1 TOP UD No Start Date Active fluticasone 50 mcg/a ctuation nasal spray,suspension RxNorm: 7087230 2 [place] NASAL daily each nare No Start Date 03/14/2016 Inactive losartan 50 mg tablet RxNorm: 847263 1 Tablet(s) PO daily No Start Date 09/03/2015 Inactive metformin 500 mg tablet RxNorm: 812106 1 Tablet(s) PO daily No Start Date 11/20/2015 Inactive simvastatin 40 mg ta blet RxNorm: 163667 1 Tablet(s) PO daily No Start Date 11/20/2015 Inactive furosemide 20 mg tablet RxNorm: 371199 1 Tablet(s) PO daily as needed No Start Date 07/20/2016 Inactive Advair Diskus 250 mc g-50 mcg/dose powder for inhalation RxNorm: 2326001 1 INH daily No Start Date 11/20/2015 Inactive Multiple Vitamin oral RxNorm: 50140 oral No Start Date 12/31/2015 Inactive montelukast 10 mg ta blet RxNorm: 986257 1 Tablet(s) PO daily No Start Date 09/24/2015 Inactive Medication Administered Medication Codes Instruc tions Start Date Status Kenalog 40 mg/mL suspension for injection RxNorm: 3740576 1Milliliter 08/25/2017 N o longer Active Kenalog 40 mg/mL suspension for injection RxNorm: 4902547 1Milliliter 04/21/2016 N o longer Active Immunizations [...] Code Item Item Code Result Date %Hba1C Eyj112 % HbA1c 03684-9 6.0 % 12/21/2017 %Hba1C Ocm226 Gluc Ave 126 mg/dL 12/21/2017 %Hba1C Jtq674 % HbA1c 20761-5 6.2 % 04/20/2017 %Hba1C Njv669 Gluc Ave 131 mg/dL 04/20/2017 Cbc With [...] 94.3 fl 04/20/2017 Cbc With Differential Ord2 [place]% 9.3 % 04/20/2017 Cbc With Differential Ord2 MCH 31.8 pg 04/20/2017 Cbc With Differential Ord2 MCHC 33.8 pg 04/20/2017 Cbc With Differential Ord2 Eos% 3.2 % 04/20/2017 Cbc With Differential Ord2 PLT 236 K/ul 04/20/2017 Cbc With Differential Ord2 Baso% 0.3 % 04/20/2017 Cbc With Differential Ord2 RDW 13.3 % 04/20/2017 Cbc With Differential Ord2 Neut ABS# 3.92 K/ul 04/20/2017 Cbc With Differential Ord2 Lymph ABS# 1.82 K/ul 04/20/2017 Cbc With Differential Ord2 [place] ABS# 0.6 K/ul 04/20/2017 Cbc With Differential Ord2 Eos ABS# 0.2 K/ul 04/20/2017 Cbc With Differential Ord2 Baso ABS# 0.0 K/ul 04/20/2017 Comp Metabolic Boi924 NA 141 mEq/L 04/20/2017 Comp Metabolic Uoz384 K 4.5 mEq/L 04/20/2017 Comp Metabolic Erl009 CL 106 mEq/L 04/20/2017 Comp Metabolic Zez295 CO2 27.0 mEq/L 04/20/2017 Comp Metabolic Kzq348 AN ION GAP 13 04/20/2017 Comp Metabolic Bcj118 GL UCOSE 109 mg/dL 04/20/2017 Comp Metabolic Goa431 Cr eat 1.0 mg/dL 04/20/2017 Comp Metabolic Bhv806 eG FR 81 ml/min/1.73m2 04/20 Comp Metabolic Uvh856 BUN 23 mg/dL 04/20/2017 Comp Metabolic Xbk948 B/ C Ratio 24.2 Ratio 04/20/2017 Comp Metabolic Vqd467 CA LCIUM 9.3 mg/dL 04/20/2017 Comp Metabolic Yjp372 AL K PHOS 82 U/L 04/20/2017 Comp Metabolic Eau069 T(SGOT) 22 U/L 04/20/2017 Comp Metabolic Ajg206 AL T(SGPT) 24 U/L 04/20/2017 Comp Metabolic Ruz449 BI LI T 0.4 mg/dL 04/20/2017 Comp Metabolic Gda111 AL BUMIN 4.3 g/dL 04/20/2017 Comp Metabolic Yoz728 TP RO 6.8 g/dL 04/20/2017 Comp Metabolic Cdu684 GL OB 2.5 g/dL 04/20/2017 Comp Metabolic Rnv241 A/ G Ratio 1.7 Ratio 04/20/2017 Comp Metabolic Ffa872 Os mo 286 mOsmo 04/20/2017 %Hba1C Obb506 % HbA1c 52468-2 5.8 % 10/22/2016 %Hba1C Vjo964 Gluc Ave 120 mg/dL 10/22/2016 Cbc With [...] 32.5 pg 10/22/2016 Cbc With Differential Ord2 [place]% 10.3 % 10/22/2016 Cbc With Differential Ord2 [...] 1.85 K/ul 10/22/2016 Cbc With Differential Ord2 [place] ABS# 0.8 K/ul 10/22/2016 Cbc With Differential Ord2 Eos ABS# 0.3 K/ul 10/22/2016 Cbc With Differential Ord2 Baso ABS# 0.0 K/ul 10/22/2016 Comp Metabolic Srn107 NA 141 mEq/L 10/22/2016 Comp Metabolic Jkf772 K 4.4 mEq/L 10/22/2016 Comp Metabolic Rcm788 CL 105 mEq/L 10/22/2016 Comp Metabolic Zjy755 CO2 27.0 mEq/L 10/22/2016 Comp Metabolic Jvx806 AN ION GAP 13 10/22/2016 Comp Metabolic Xex122 GL UCOSE 103 mg/dL 10/22/2016 Comp Metabolic Bfr589 Cr eat 1.0 mg/dL 10/22/2016 Comp Metabolic Mxy066 eG FR 76 ml/min/1.73m2 10/22 Comp Metabolic Zcn573 BUN 27 mg/dL 10/22/2016 Comp Metabolic Fgh247 B/ C Ratio 27.0 Ratio 10/22/2016 Comp Metabolic Que604 CA LCIUM 9.3 mg/dL 10/22/2016 Comp Metabolic Oco249 AL K PHOS 72 U/L 10/22/2016 Comp Metabolic Txy810 T(SGOT) 23 U/L 10/22/2016 Comp Metabolic Pbo921 AL T(SGPT) 26 U/L 10/22/2016 Comp Metabolic Fte764 BI LI T 0.4 mg/dL 10/22/2016 Comp Metabolic Won990 AL BUMIN 4.2 g/dL 10/22/2016 Comp Metabolic Bsw128 TP RO 6.7 g/dL 10/22/2016 Comp Metabolic Rvo039 GL OB 2.5 g/dL 10/22/2016 Comp Metabolic Xgo513 A/ G Ratio 1.6 Ratio 10/22/2016 Comp Metabolic Qby345 Os mo 287 mOsmo 10/22/2016 Comp Metabolic Qas043 NA 143 mEq/L 06/17/2016 Comp Metabolic Gex849 K 4.1 mEq/L 06/17/2016 Comp Metabolic Wkc583 CL 108 mEq/L 06/17/2016 Comp Metabolic Vid596 CO2 28.0 mEq/L 06/17/2016 Comp Metabolic Cdd623 AN ION GAP 11 06/17/2016 Comp Metabolic Ute314 GL UCOSE 106 mg/dL 06/17/2016 Comp Metabolic Shu509 Cr eat 0.9 mg/dL 06/17/2016 Comp Metabolic Psg812 eG FR 92 ml/min/1.73m2 06/17 Comp Metabolic Lft859 BUN 22 mg/dL 06/17/2016 Comp Metabolic Nzd980 B/ C Ratio 25.9 Ratio 06/17/2016 Comp Metabolic Zzf549 CA LCIUM 8.8 mg/dL 06/17/2016 Comp Metabolic Uze750 AL K PHOS 55 U/L 06/17/2016 Comp Metabolic Rnf313 T(SGOT) 21 U/L 06/17/2016 Comp Metabolic Qmr219 AL T(SGPT) 24 U/L 06/17/2016 Comp Metabolic Cfp061 BI LI T 0.6 mg/dL 06/17/2016 Comp Metabolic Ejp944 AL BUMIN 4.0 g/dL 06/17/2016 Comp Metabolic Dmv712 TP RO 6.2 g/dL 06/17/2016 Comp Metabolic Hft356 GL OB 2.2 g/dL 06/17/2016 Comp Metabolic Ofe118 A/ G Ratio 1.8 Ratio 06/17/2016 Comp Metabolic Pba455 Os mo 289 mOsmo 06/17/2016 Lipid Ord30 CHOL 163 mg/dL 06/17/2016 Lipid Ord30 HDL 54.0 mg/dl 06/17/2016 Lipid Ord30 TRIG 133 mg/dL 06/17/2016 Lipid Ord30 LDL 82 mg/dL 06/17/2016 Lipid Ord30 C/HDL 3.0 Ratio 06/17/2016 %Hba1C Zsk255 % HbA1c 68390-1 6.0 % 06/17/2016 %Hba1C Mit286 Gluc Ave 126 mg/dL 06/17/2016 Total Psa [...] 29.6 % 06/17/2016 Cbc With Differential Ord2 [place]% 10.7 % 06/17/2016 Cbc With Differential Ord2 [...] 1.71 K/ul 06/17/2016 Cbc With Differential Ord2 [place] ABS# 0.6 K/ul 06/17/2016 Cbc With Differential Ord2 Eos ABS# 0.2 K/ul 06/17/2016 Cbc With Differential Ord2 Baso ABS# 0.0 K/ul 06/17/2016 Tsh Ord6 hTSH II 2.91 uIU/mL 06/17/2016 Tsh Ord6 hTSH II 2.45 uIU/mL 02/19/2016 %Hba1C Wmh107 % HbA1c 81894-4 5.8 % 02/19/2016 %Hba1C Dai230 Gluc Ave 120 mg/dL 02/19/2016 Comp Metabolic Ail789 NA 141 mEq/L 02/19/2016 Comp Metabolic Thc894 K 4.2 mEq/L 02/19/2016 Comp Metabolic Jkt824 CL 107 mEq/L 02/19/2016 Comp Metabolic Wwg496 CO2 29.0 mEq/L 02/19/2016 Comp Metabolic Grq355 AN ION GAP 9 02/19/2016 Comp Metabolic Czl803 GL UCOSE 106 mg/dL 02/19/2016 Comp Metabolic Kbv444 Cr eat 0.9 mg/dL 02/19/2016 Comp Metabolic Emf683 eG FR 90 ml/min/1.73m2 02/18 Comp Metabolic Vmj241 BUN 24 mg/dL 02/19/2016 Comp Metabolic Ugn208 B/ C Ratio 27.6 Ratio 02/19/2016 Comp Metabolic Liy439 CA LCIUM 9.1 mg/dL 02/19/2016 Comp Metabolic Llt919 AL K PHOS 67 U/L 02/19/2016 Comp Metabolic Lrt168 T(SGOT) 25 U/L 02/19/2016 Comp Metabolic Hkp004 AL T(SGPT) 31 U/L 02/19/2016 Comp Metabolic Jjw843 BI LI T 0.6 mg/dL 02/19/2016 Comp Metabolic Qrt784 AL BUMIN 4.1 g/dL 02/19/2016 Comp Metabolic Wfu835 TP RO 6.5 g/dL 02/19/2016 Comp Metabolic Vwh055 GL OB 2.4 g/dL 02/19/2016 Comp Metabolic Sve928 A/ G Ratio 1.7 Ratio 02/19/2016 Comp Metabolic Dzc154 Os mo 286 mOsmo 02/19/2016 Cbc With [...] 31.7 pg 02/19/2016 Cbc With Differential Ord2 [place]% 10.5 % 02/19/2016 Cbc With Differential Ord2 [...] 1.59 K/ul 02/19/2016 Cbc With Differential Ord2 [place] ABS# 0.6 K/ul 02/19/2016 Cbc With Differential Ord2 Eos ABS# 0.3 K/ul 02/19/2016 Cbc With Differential Ord2 Baso ABS# 0.0 K/ul 02/19/2016 Lipid Ord30 CHOL 174 mg/dL 02/19/2016 Lipid Ord30 HDL 54.0 mg/dl 02/19/2016 Lipid Ord30 TRIG 110 mg/dL 02/19/2016 Lipid Ord30 LDL 98 mg/dL 02/19/2016 Lipid Ord30 C/HDL 3.2 Ratio 02/19/2016 %Hba1C Dwj866 % HbA1c 37608-9 6.0 % 11/11/2015 %Hba1C Fvc108 Gluc Ave 126 mg/dL 11/11/2015 %Hba1C Acl450 % HbA1c 93187-4 6.0 % 11/07/2015 %Hba1C Lcj207 Gluc Ave 126 mg/dL 11/07/2015 Cbc With [...] 30.0 % 11/06/2015 Cbc With Differential Ord2 [place]% 9.5 % 11/06/2015 Cbc With Differential Ord2 [...] 1.79 K/ul 11/06/2015 Cbc With Differential Ord2 [place] ABS# 0.6 K/ul 11/06/2015 Cbc With Differential Ord2 Eos ABS# 0.3 K/ul 11/06/2015 Cbc With Differential Ord2 Baso ABS# 0.0 K/ul 11/06/2015 Comp Metabolic Ftl432 NA 141 mEq/L 11/06/2015 Comp Metabolic Qxc093 K 4.3 mEq/L 11/06/2015 Comp Metabolic Qre092 CL 107 mEq/L 11/06/2015 Comp Metabolic Kug066 CO2 28.0 mEq/L 11/06/2015 Comp Metabolic Elh640 AN ION GAP 10 11/06/2015 Comp Metabolic Yrl260 GL UCOSE 117 mg/dL 11/06/2015 Comp Metabolic Jxt535 Cr eat 0.9 mg/dL 11/06/2015 Comp Metabolic Dwy781 eG FR 88 ml/min/1.73m2 11/05 Comp Metabolic Ucw702 BUN 22 mg/dL 11/06/2015 Comp Metabolic Ouz042 B/ C Ratio 25.0 Ratio 11/06/2015 Comp Metabolic Sph860 CA LCIUM 9.1 mg/dL 11/06/2015 Comp Metabolic Hnb587 AL K PHOS 59 U/L 11/06/2015 Comp Metabolic Mhi080 T(SGOT) 23 U/L 11/06/2015 Comp Metabolic Qdf585 AL T(SGPT) 26 U/L 11/06/2015 Comp Metabolic Yaf712 BI LI T 0.6 mg/dL 11/06/2015 Comp Metabolic Zpl313 AL BUMIN 4.0 g/dL 11/06/2015 Comp Metabolic Shp591 TP RO 6.4 g/dL 11/06/2015 Comp Metabolic Gmj784 GL OB 2.4 g/dL 11/06/2015 Comp Metabolic Xcd395 A/ G Ratio 1.7 Ratio 11/06/2015 Comp Metabolic Vns452 Os mo 286 mOsmo 11/06/2015 Tsh Ord6 hTSH II 2.59 uIU/mL 11/06/2015 Lipid Ord30 CHOL 159 mg/dL 11/06/2015 Lipid Ord30 HDL 42.0 mg/dl 11/06/2015 Lipid Ord30 TRIG 129 mg/dL 11/06/2015 Lipid Ord30 LDL 91 mg/dL 11/06/2015 Lipid Ord30 C/HDL 3.8 Ratio 11/06/2015 Comp Metabolic Jjm900 NA 140 mEq/L 08/08/2015 Comp Metabolic Bah011 K 4.0 mEq/L 08/08/2015 Comp Metabolic Nth951 CL 108 mEq/L 08/08/2015 Comp Metabolic Neg552 CO2 25.0 mEq/L 08/08/2015 Comp Metabolic Uqd329 AN ION GAP 11 08/08/2015 Comp Metabolic Fep183 GL UCOSE 100 mg/dL 08/08/2015 Comp Metabolic Vzv195 Cr eat 0.9 mg/dL 08/08/2015 Comp Metabolic Hqz163 eG FR 82 ml/min/1.73m2 08/07 Comp Metabolic Epz812 BUN 19 mg/dL 08/08/2015 Comp Metabolic Chh124 B/ C Ratio 20.2 Ratio 08/08/2015 Comp Metabolic Pmc203 CA LCIUM 8.5 mg/dL 08/08/2015 Comp Metabolic Ezg849 AL K PHOS 56 U/L 08/08/2015 Comp Metabolic Pvo428 T(SGOT) 18 U/L 08/08/2015 Comp Metabolic Qri866 AL T(SGPT) 17 U/L 08/08/2015 Comp Metabolic Pkl292 BI LI T 0.7 mg/dL 08/08/2015 Comp Metabolic Jer031 AL BUMIN 3.9 g/dL 08/08/2015 Comp Metabolic Nal194 TP RO 6.2 g/dL 08/08/2015 Comp Metabolic Llp887 GL OB 2.3 g/dL 08/08/2015 Comp Metabolic Rvo115 A/ G Ratio 1.7 Ratio 08/08/2015 Comp Metabolic Zlc357 Os mo 282 mOsmo 08/08/2015 Tsh Ord6 hTSH II 3.19 uIU/mL 08/08/2015 %Hba1C Wya416 % HbA1c 47531-1 5.7 % 08/08/2015 %Hba1C Tmh628 Gluc Ave 117 mg/dL 08/08/2015 Cbc With [...] 93.7 fl 08/08/2015 Cbc With Differential Ord2 [place]% 10.9 % 08/08/2015 Cbc With Differential Ord2 [...] 1.51 K/ul 08/08/2015 Cbc With Differential Ord2 [place] ABS# 0.6 K/ul 08/08/2015 Cbc With Differential [...] Procedure Codes Date DRAIN/INJECT JOINT/B URSA CPT-4: 26792 08/25/2017 PPPS, SUBSEQ VISIT CPT- 4: G0439 05/30/2017 ADMIN INFLUENZA VIRU S VAC CPT-4: G0008 12/21/2016 FLU VACC PRSV FREE I NC ANTIG CPT-4: 31173 12/21/2016 PPPS, SUBSEQ VISIT CPT- 4: G0439 05/21/2016 TRIAMCINOLONE ACET I [place] NOS CPT-4: J3301 04/21/2016 THER/PROPH/DIAG INJ SC/IM CPT-4: 43103 04/21/2016 DRAIN/INJECT JOINT/B URSA CPT-4: 64939 11/13/2015 PNEUMOCOCCAL VACC [address]: 16759599 CPT-4: 53771 11/13/2015 ADMIN PNEUMOCOCCAL V ACCINE SNOMED CT: 07886768 CPT-4: G0009 11/13/2015 ADMIN INFLUENZA VIRU S VAC CPT-4: G0008 11/11/2015 FLU VACC 4 AZUL 3 YRS PLUS IM SNOMED CT: 60272540 CPT-4: 76216 11/11/2015 Vital Signs Date Vital 12/21/2017 Blood Pressure 1: 132/56 Code: 8480-6 BMI: 25.7 Code: 86303-0 Heart Rate 1: 58 bpm Height: 5'7" SpO2: 93% Weight: 164 lbs 08/25/2017 Blood Pressure 1: 126/74 Code: 8480-6 BMI: 26.2 Code: 95296-6 Heart Rate 1: 70 bpm Height: 5'7" SpO2: 94% Weight: 167 lbs 05/30/2017 Blood Pressure 1: 120/66 Code: 8480-6 BMI: 26.6 Code: 71312-2 Heart Rate 1: 66 bpm Height: 5'7" SpO2: 95% Waist Measure (cm): 97 cm Weight: 170 lbs 04/20/2017 Blood Pressure 1: 138/78 Code: 8480-6 BMI: 26.6 Code: 55742-4 Heart Rate 1: 86 bpm Height: 5'7" SpO2: 96% Weight: 170 lbs 01/21/2017 Blood Pressure 1: 136/70 Code: 8480-6 BMI: 26.3 Code: 86177-3 Heart Rate 1: 79 bpm Height: 5'7" SpO2: 95% Weight: 168 lbs 10/22/2016 Blood Pressure 1: 134/72 Code: 8480-6 BMI: 26.3 Code: 83560-7 Heart Rate 1: 70 bpm Height: 5'7" SpO2: 95% Weight: 168 lbs 10/04/2016 Blood Pressure 1: 142/80 Code: 8480-6 BMI: 26.6 Code: 35413-4 Heart Rate 1: 72 bpm Height: 5'7" SpO2: 93% Weight: 170 lbs 06/18/2016 Blood Pressure 1: 132/76 Code: 8480-6 BMI: 26.2 Code: 63165-5 Heart Rate 1: 65 bpm Height: 5'7" SpO2: 95% Weight: 167 lbs 8 oz 05/21/2016 Blood Pressure 1: 126/76 Code: 8480-6 BMI: 26.0 Code: 79828-7 Heart Rate 1: 72 bpm Height: 5'7" SpO2: 98% Weight: 166 lbs 04/29/2016 Blood Pressure 1: 128/70 Code: 8480-6 BMI: 25.7 Code: 22271-1 Heart Rate 1: 67 bpm Height: 5'7" SpO2: 97% Temperature: 36.3 (C ) / 97.4 (F) Weight: 164 lbs 04/21/2016 Blood Pressure 1: 130/62 Code: 8480-6 BMI: 26.3 Code: 62810-4 Heart Rate 1: 74 bpm Height: 5'7" SpO2: 96% Temperature: 37.0 (C ) / 98.6 (F) Weight: 168 lbs 02/20/2016 Blood Pressure 1: 120/64 Code: 8480-6 BMI: 26.2 Code: 69253-8 Heart Rate 1: 65 bpm Height: 5'7" SpO2: 94% Weight: 167 lbs 01/01/2016 Blood Pressure 1: 106/60 Code: 8480-6 BMI: 25.7 Code: 27135-4 Heart Rate 1: 73 bpm Height: 5'7" SpO2: 98% Weight: 164 lbs 11/13/2015 Blood Pressure 1: 122/86 Code: 8480-6 BMI: 25.8 Code: 87427-2 Heart Rate 1: 80 bpm Height: 5'7" SpO2: 92% Weight: 165 lbs 11/07/2015 Blood Pressure 1: 118/64 Code: 8480-6 BMI: 25.8 Code: 44198-9 Heart Rate 1: 66 bpm Height: 5'7" SpO2: 95% Weight: 165 lbs 08/07/2015 Blood Pressure 1: 122/80 Code: 8480-6 BMI: 24.4 Code: 71382-2 Heart Rate 1: 74 bpm Height: 5'7" [...] day 05/30/2017 None Annual Medicare Wellness Exam [employer] grace Stress usually ash[place] effectively 05/30/2017 None [...] in right knee[ICD10: M25.561] Lakeisha Hoskins MD, [facility] CPT-4: 20402 12/21/2017 [id number] EST. PATIENT, LEVEL IV Diagnosis: Type 2 diabetes mellitus without complications[ICD10: E11.9] Diagnosis: Essential (primary) hypertension[ICD10: I10] Diagnosis: Pain in right knee[ICD10: M25.561] Lakeisha Hoskins MD, [facility] CPT-4: 35711 08/25/2017 19073 EST. PATIENT, LEVEL IV Diagnosis: Type 2 diabetes mellitus without complications[ICD10: E11.9] Diagnosis: Essential (primary) hypertension[ICD10: I10] Lakeisha Hoskins MD, [facility] CPT-4: 60738 04/20/2017 ([id number]) [id number] EST. P ATIENT, LEVEL III Diagnosis: Essential (primary) hypertension[ICD10: I10] Diagnosis: Obstructive sleep apnea (adult) (pediatric)[ICD10: G47.33] Nancy Hoskins MD, [facility] CPT-4: 31797 01/21/2017 ([id number]) 74894 EST. P ATIENT, LEVEL IV Diagnosis: Essential (primary) hypertension[ICD10: I10] Diagnosis: Type 2 diabetes mellitus without complications[ICD10: E11.9] Diagnosis: Obstructive sleep apnea (adult) (pediatric)[ICD10: G47.33] Nancy Hoskins MD, [facility] CPT-4: 74829 10/22/2016 ([id number]) 72679 EST. P ATIENT, LEVEL III Diagnosis: Localized edema[ICD10: R60.0] Diagnosis: Rash and other nonspecific skin eruption[ICD10: R21] Nancy Hoskins MD, [facility] CPT-4: 79263 10/04/2016 ([id number]) 88082 EST. P ATIENT, LEVEL IV Diagnosis: Essential (primary) hypertension[ICD10: I10] Diagnosis: Type 2 diabetes mellitus without complications[ICD10: E11.9] Diagnosis: Mixed hyperlipidemia[ICD10: E78.2] Nancy Hoskins MD, [facility] CPT-4: 48433 06/18/2016 ([id number]) 42784 EST. P ATIENT, LEVEL III Diagnosis: Cough[ICD10: R05] Diagnosis: Acute bronchitis, unspecified[ICD10: J20.9] Nancy Hoskins MD, [facility] CPT-4: 57188 04/29/2016 [id number] EST. PATIENT, LEVEL IV Diagnosis: Other acute sinusitis[ICD10: J01.80] Diagnosis: Other allergic rhinitis[ICD10: J30.89] Lakeisha Hoskins MD, [facility] CPT-4: 58758 04/21/2016 ([id number]) 66766 EST. P ATIENT, LEVEL IV Diagnosis: Essential (primary) hypertension[ICD10: I10] Diagnosis: Type 2 diabetes mellitus without complications[ICD10: E11.9] Diagnosis: Mixed hyperlipidemia[ICD10: E78.2] Diagnosis: Primary generalized (osteo)arthritis[ICD10: M15.0] Nancy Hoskins MD, [facility] CPT-4: 28710 02/20/2016 ([id number]) 26802 EST. P ATIENT, LEVEL IV Diagnosis: Cough[ICD10: R05] Diagnosis: Acute bronchitis due to Hemophilus influenzae[ICD10: J20.1] Diagnosis: Type 2 diabetes mellitus without complications[ICD10: E11.9] Diagnosis: Essential (primary) hypertension[ICD10: I10] Charlene Hoskins MD, [facility] CPT-4: 70736 01/01/2016 ([id number]) 25647 EST. P ATIENT, LEVEL IV Diagnosis: Essential (primary) hypertension[ICD10: I10] Diagnosis: Mixed hyperlipidemia[ICD10: E78.2] Diagnosis: Type 2 diabetes mellitus without complications[ICD10: E11.9] [facility] CPT-4: 06188 11/07/2015 OFFICE VISIT, NEW - LEVEL 4 Diagnosis: Type 2 diabetes mellitus without complications[ICD10: E11.9] Diagnosis: Essential (primary) hypertension[ICD10: I10] Diagnosis: Mixed hyperlipidemia[ICD10: E78.2] Diagnosis: Elevated prostate specific antigen [PSA][ICD10: R97.2] Nancy Hoskins MD, [facility] CPT-4: 27379 08/07/2015 Plan of Care Planned Activity Notes [...] not improve. 12/21/2017 Appointment: Lakeisha Putnam WPtel: [address] [place], [place] [id number] (15 min) Moderate 12/21/2017 Patient Education: Patient [...] of injection. 08/25/2017 Appointment: [facility] Put[phone] (15 min) Moderate 08/25/2017 Patient Education: Patient [...] Completed 05/30/2017 Appointment: Lakeisha Putnam [facility]Ptel[phone] [facility] [facility] - Annual Wellness Visit 05/27/2017 Appointment: Nancy Tavares [facility]Ptel[phone] [facility] [phone] (30 min) Complex 04/22/2017 Visit Plan: Hypertension [...] controlled. 04/20/2017 Appointment: Lakeisha Putnam [facility]Ptel[phone] (30 min) Complex 04/20/2017 Patient Education: Patient [...] sleep, etc. Will fax note to [facility]. 01/21/2017 Appointment: Nancy Tavares WPtel: [phone] [phone] (30 min) Complex 01/21/2017 Appointment: Nancy [facility]avares [facility]Ptel[phone] (30 min) Complex 01/21/2017 Patient Education: Patient [...] well-due for a new machine-will call [facility] to see what we need to do to get him a new machine. 10/22/2016 Appointment: Nancy Tavares WPtel: [phone] [phone] (30 min) Complex 10/22/2016 Patient Education: Patient [...] plan. 10/04/2016 Appointment: Nancy Tavares WPtel: [phone] [phone] (15 min) Moderate 10/04/2016 Patient Education: Patient [...] dications. 06/18/2016 Appointment: Nancy Tavares WPtel: [phone] [phone] (15 min) Moderate 06/18/2016 Patient Education: [...] acutely worsen. 04/29/2016 Appointment: Nancy Tavares WPtel: [address] [place], [place] [phone] (15 min) Moderate 04/29/2016 Patient Education: Patient Medication Summary Completed 04/29/2016 Care Plan: CHEST X-RAY 2VW FRONTAL&LATL LOINC : 27777-4 Pending 04/29/2016 Visit Plan: Sinusitis - Pt [...] allergy spray. 04/21/2016 Appointment: Lakeisha Putnam WPtel: [address] [place], [place] [phone] (15 min) Moderate 04/21/2016 Patient Education: Patient [...] placard provided 02/20/2016 Appointment: Nancy Tavares WPtel: [phone] [phone] (30 min) Complex 02/20/2016 Patient Education: Patient [...] less controlled. 01/01/2016 Appointment: [phone] [place] (15 min) Moderate 01/01/2016 Patient Education: [...] of injection. 11/13/2015 Appointment: [facility]avares [facility]el[phone] (15 min) Moderate 11/13/2015 Patient Education: Patient [...] response to medications. DM-too early for Hgb [id number] to have done next week 11/07/2015 Appointment: Nancy Tavares [facility]Ptel[phone] (15 min) Moderate 11/07/2015 Patient Education: Patient [...] biopsy results 08/07/2015 Appointment: Nancy [facility]avares [facility]el[phone] New Patient 08/07/2015 Patient Education: Patient Medication Summary Completed 08/07/2015 Instructions Comment . Sinusitis - Pt has acute infection [...] well-due for a new machine-will call [facility] to see what we need to [...] response to medications. DM-too early for Hgb [id number] to have done next week . Hypertension [...] sleep, etc. Will fax note to [facility]. . Hypertension - con tinue with [...] TIMES WEEKLY CONTINUE STEROID CREAM ORDERED BY CENTRAL OFFICE INSPECTOR CULTURE RASH LEFT AXILLA . Edema [...]
--- OUTSIDE RECORDS SUMMARY | 2019-04-11 03:49 | XMS REPORT | CCD ---
Author Author Cesar Tavares Organization Charlene Hoskins MD, [facility] Address [address] [place] [address] Phone Care Team Providers [facility] Feeder Name Role Phone PP Unavailable CCM Unavailable Summary Purpose Interface Exchange Insurance Providers Payer name Policy type / Coverage type Covered libertarian ID Effective Begin Date Effective End Date WPS Medicare Part B Medicare Part B [id number] Unknown [facility] Part B [id number] Un known Family history Brother Diagnosis Age [...] Retir ed 08/07/[address]: 2847810 Quit over 10 years ago 1970 08/07/[address]: 915761134 Never drinks alcohol 08/07/2015 Allergies, Adverse Reactions, [...] Fill Instructions metformin 500 mg tablet RxNorm: 530571 TAKE 1 TABLET BY MOUTH ONCE DAILY 01/16/2018 No Stop Date Active Advair Diskus 250 mc g-50 mcg/dose powder for inhalation RxNorm: 5676969 INHALE 1 DOSE BY MOUTH TWICE DAILY 12/19/2017 No Stop Date Active meloxicam 7.5 mg tablet RxNorm: 010067 TAKE 1 TABLET BY MOUTH ONCE DAILY 12/01/2017 No Stop Date Active simvastatin 20 mg ta blet RxNorm: 354211 TAKE 1 TABLET BY MOUT ONCE DAILY 11/14/2017 No Stop Date Active losartan 50 mg tablet RxNorm: 001585 TAKE ONE TABLET BY MOUTH ONCE DAILY 10/27/2017 No Stop Date Active fluticasone 50 mcg/a ctuation nasal spray,suspension RxNorm: 2240416 USE TWO SPRAY(S) IN EACH NOSTRIL ONCE DAILY 10/19/2017 No Stop Date Active Advair Diskus 250 mc g-50 mcg/dose powder for inhalation RxNorm: 2601279 INHALE 1 DOSE BY MOUTH TWICE DAILY 10/19/2017 12/18/2017 Inactive Kenalog 40 mg/mL maggie pension for injection RxNorm: 9517530 1 Milliliter(s) Inj 08/25/2017 08/25/2017 In active meloxicam 7.5 mg tablet RxNorm: 188821 TAKE ONE TABLET BY MOUTH ONCE DAILY 06/06/2017 11/30/2017 In active simvastatin 20 mg ta blet RxNorm: 647603 TAKE ONE TABLET BY MO UTH ONCE DAILY 05/17/2017 11/13/2017 In active metformin 500 mg tablet RxNorm: 769532 TAKE ONE TABLET BY MOUTH ONCE DAILY 05/05/2017 01/15/2018 In active Advair Diskus 250 mc g-50 mcg/dose powder for inhalation RxNorm: 3775648 INHALE ONE DOSE BY MOUTH TWICE DAILY 04/19/2017 10/18/2017 Inactive Tamiflu 75 mg capsule RxNorm: 612489 1 Capsule(s) PO daily 03/25/2017 03/24/2017 Inactive Tamiflu 75 mg capsule RxNorm: 986347 1 Capsule(s) PO daily 03/25/2017 03/31/2017 Inactive montelukast 10 mg ta blet RxNorm: 095850 TAKE ONE TABLET BY MO UTH ONCE DAILY 03/21/2017 No Stop Date Active losartan 50 mg tablet RxNorm: 784304 TAKE ONE TABLET BY MOUTH ONCE DAILY 01/27/2017 10/26/2017 In active fluticasone 50 mcg/a ctuation nasal spray,suspension RxNorm: 3852229 USE TWO SPRAY(S) IN EACH NOSTRIL ONCE DAILY 01/17/2017 10/18/2017 Inactive meloxicam 7.5 mg tablet RxNorm: 299281 TAKE ONE TABLET BY MOUTH ONCE DAILY 12/06/2016 06/03/2017 In active metformin 500 mg tablet RxNorm: 007660 Tablet(s) TAKE ONE TABLET BY MOUTH TWICE DAILY 11/30/2016 11/24/2017 Inactive simvastatin 20 mg ta blet RxNorm: 244247 TAKE ONE TABLET BY [facility] ONCE DAILY 11/15/2016 05/13/2017 In active Advair Diskus 250 mc g-50 mcg/dose powder for inhalation RxNorm: 9250444 INHALE ONE PUFF BY MOUTH TWICE DAILY 10/22/2016 04/18/2017 Inactive ketoconazole 2 % sha mpoo RxNorm: 410991 1 Application TOP TIW 10/04/2016 10/17/2016 Inactive fluticasone 50 mcg/a ctuation nasal spray,suspension RxNorm: 3441480 USE TWO SPRAY(S) IN EACH NOSTRIL ONCE DAILY 09/21/2016 11/19/2016 Inactive montelukast 10 mg ta blet RxNorm: 522743 TAKE ONE TABLET BY [facility] ONCE DAILY 09/21/2016 03/19/2017 In active losartan 50 mg tablet RxNorm: 881594 TAKE ONE TABLET BY MOUTH ONCE DAILY 08/02/2016 01/26/2017 In active metformin 500 mg tablet RxNorm: 381671 TAKE ONE TABLET BY MOUTH TWICE DAILY 07/22/2016 10/19/2016 In active furosemide 20 mg tablet RxNorm: 950682 1 Tablet(s) PO daily as needed for swell ing 07/21/2016 10/18/2016 Inactive meloxicam 7.5 mg tablet RxNorm: 027249 TAKE ONE TABLET BY MOUTH ONCE DAILY 06/08/2016 12/04/2016 In active cefdinir 300 mg capsule RxNorm: 842443 1 Capsule(s) PO BID 04/29/2016 05/05/2016 Inactive prednisone 20 mg tablet RxNorm: 481394 1 Tablet(s) PO BID 04/29/2016 05/03/2016 Inactive Zithromax Z-Sherif 250 mg tablet RxNorm: 200420 1 Tablet(s) PO UD 04/21/2016 04/28/2016 Inactive Kenalog 40 mg/mL maggie pension for injection RxNorm: 5947750 1 Milliliter(s) Inj 04/21/2016 04/21/2016 In active montelukast 10 mg ta blet RxNorm: 850818 TAKE ONE TABLET BY [facility] ONCE DAILY 03/22/2016 09/17/2016 In active fluticasone 50 mcg/a ctuation nasal spray,suspension RxNorm: 2435597 2 [place] NASAL daily each nare 03/15/2016 07/12/2016 Inactive qs metformin 500 mg tablet RxNorm: 099545 1 Tablet(s) PO daily 01/16/2016 2016 Inactive Patient does not need a refill- just upd ate dosing simvastatin 40 mg ta blet RxNorm: 183333 1 Tablet(s) PO daily 01/01/2016 No Stop Date Active Advair Diskus 250 mc g-50 mcg/dose powder for inhalation RxNorm: 9120895 1 INH BID 01/01/2016 04/29/2016 In active Advair Diskus 250 mc g-50 mcg/dose powder for inhalation RxNorm: 3831503 1 INH daily 01/01/2016 12/31/2015 Inactive metformin 500 mg tablet RxNorm: 421715 1 Tablet(s) PO daily 01/01/2016 01/15/2016 Inactive azithromycin 250 mg tablet RxNorm: 615756 1 Tablet(s) PO take t wo pills on day #1, then one pill daily x 4 more days 01/01/2016 02/17/2016 Inactive meloxicam 7.5 mg tablet RxNorm: 304983 1 Tablet(s) PO daily 12/11/2015 06/07/2016 Inactive simvastatin 20 mg ta blet RxNorm: 276452 1 Tablet(s) PO daily 11/21/2015 12/31/2015 Inactive metformin 500 mg tablet RxNorm: 350390 1 Tablet(s) PO BID 11/21/2015 12/31/2015 Inactive Advair Diskus 250 mc g-50 mcg/dose powder for inhalation RxNorm: 8408721 1 INH BID 11/21/2015 12/31/2015 In active montelukast 10 mg ta blet RxNorm: 029216 1 Tablet(s) PO daily 09/25/2015 03/21/2016 Inactive losartan 50 mg tablet RxNorm: 075702 1 Tablet(s) PO daily 09/04/2015 08/01/2016 Inactive Restasis 0.05 % eye drops in a dropperette RxNorm: 582126 1 gtts OPH BID 08/07/2015 No Stop Date Active meloxicam 7.5 mg tablet RxNorm: 321151 1 Tablet(s) PO daily 08/07/2015 09/05/2015 Inactive Kay oral RxNorm: 675947 oral No Start Date Active finasteride 5 mg tablet RxNorm: 051668 1 Tablet(s) PO daily No Start Date Active Zyrtec 10 mg tablet RxNorm: 9392335 1 Tablet(s) PO daily No Start Date Active Co Q-10 200 mg capsule RxNorm: 971402 1 Capsule(s) PO daily No Start Date Active Calcium 500 + D (D3) oral RxNorm: 913184 oral No S tart Date Active simethicone 125 mg c apsule RxNorm: 333552 Capsule(s) PO as needed No Start Date Active Vitamin D3 1,000 uni t tablet RxNorm: 296903 1 Tablet(s) PO daily No Start Date Active omega-3 fatty acids 1,000 mg capsule RxNorm: 4 Capsule(s) PO daily No Start Date Active triamcinolone aceton chasity 0.1 % topical cream RxNorm: 0691893 1 TOP UD No Start Date Active fluticasone 50 mcg/a ctuation nasal spray,suspension RxNorm: 6337970 2 [place] NASAL daily each nare No Start Date 03/14/2016 Inactive losartan 50 mg tablet RxNorm: 997591 1 Tablet(s) PO daily No Start Date 09/03/2015 Inactive metformin 500 mg tablet RxNorm: 482678 1 Tablet(s) PO daily No Start Date 11/20/2015 Inactive simvastatin 40 mg ta blet RxNorm: 963613 1 Tablet(s) PO daily No Start Date 11/20/2015 Inactive furosemide 20 mg tablet RxNorm: 321607 1 Tablet(s) PO daily as needed No Start Date 07/20/2016 Inactive Advair Diskus 250 mc g-50 mcg/dose powder for inhalation RxNorm: 9517548 1 INH daily No Start Date 11/20/2015 Inactive Multiple Vitamin oral RxNorm: 12861 oral No Start Date 12/31/2015 Inactive montelukast 10 mg ta blet RxNorm: 746255 1 Tablet(s) PO daily No Start Date 09/24/2015 Inactive Medication Administered Medication Codes Instruc tions Start Date Status Kenalog 40 mg/mL suspension for injection RxNorm: 8894903 1Milliliter 08/25/2017 N o longer Active Kenalog 40 mg/mL suspension for injection RxNorm: 2412018 1Milliliter 04/21/2016 N o longer Active Immunizations [...] Code Item Item Code Result Date %Hba1C Tee567 % HbA1c 93436-5 6.0 % 12/21/2017 %Hba1C Qnn889 Gluc Ave 126 mg/dL 12/21/2017 %Hba1C Lee878 % HbA1c 78619-0 6.2 % 04/20/2017 %Hba1C Gjn472 Gluc Ave 131 mg/dL 04/20/2017 Cbc With [...] 94.3 fl 04/20/2017 Cbc With Differential Ord2 M[place]ain% 9.3 % 04/20/2017 Cbc With Differential Ord2 [...] 1.82 K/ul 04/20/2017 Cbc With Differential Ord2 [place] ABS# 0.6 K/ul 04/20/2017 Cbc With Differential Ord2 Eos ABS# 0.2 K/ul 04/20/2017 Cbc With Differential Ord2 Baso ABS# 0.0 K/ul 04/20/2017 Comp Metabolic Etp516 NA 141 mEq/L 04/20/2017 Comp Metabolic Sqd134 K 4.5 mEq/L 04/20/2017 Comp Metabolic Dtu890 CL 106 mEq/L 04/20/2017 Comp Metabolic Ogb045 CO2 27.0 mEq/L 04/20/2017 Comp Metabolic Oum222 AN ION GAP 13 04/20/2017 Comp Metabolic Rgh131 GL UCOSE 109 mg/dL 04/20/2017 Comp Metabolic Nqq766 Cr eat 1.0 mg/dL 04/20/2017 Comp Metabolic Mno495 eG FR 81 ml/min/1.73m2 04/20 Comp Metabolic Rcd599 BUN 23 mg/dL 04/20/2017 Comp Metabolic Oxn290 B/ C Ratio 24.2 Ratio 04/20/2017 Comp Metabolic Ixk012 CA LCIUM 9.3 mg/dL 04/20/2017 Comp Metabolic Amo231 AL K PHOS 82 U/L 04/20/2017 Comp Metabolic Xbq366 T(SGOT) 22 U/L 04/20/2017 Comp Metabolic Tcj797 AL T(SGPT) 24 U/L 04/20/2017 Comp Metabolic Gzc277 BI LI T 0.4 mg/dL 04/20/2017 Comp Metabolic Nnx008 AL BUMIN 4.3 g/dL 04/20/2017 Comp Metabolic Ipb706 TP RO 6.8 g/dL 04/20/2017 Comp Metabolic Jvj609 GL OB 2.5 g/dL 04/20/2017 Comp Metabolic Xok117 A/ G Ratio 1.7 Ratio 04/20/2017 Comp Metabolic Wbg698 Os mo 286 mOsmo 04/20/2017 %Hba1C Ecx102 % HbA1c 79898-3 5.8 % 10/22/2016 %Hba1C Egx415 Gluc Ave 120 mg/dL 10/22/2016 Cbc With [...] 32.5 pg 10/22/2016 Cbc With Differential Ord2 [place]% 10.3 % 10/22/2016 Cbc With Differential Ord2 [...] 1.85 K/ul 10/22/2016 Cbc With Differential Ord2 [place] ABS# 0.8 K/ul 10/22/2016 Cbc With Differential Ord2 Eos ABS# 0.3 K/ul 10/22/2016 Cbc With Differential Ord2 Baso ABS# 0.0 K/ul 10/22/2016 Comp Metabolic Lnw331 NA 141 mEq/L 10/22/2016 Comp Metabolic Pev859 K 4.4 mEq/L 10/22/2016 Comp Metabolic Qqj150 CL 105 mEq/L 10/22/2016 Comp Metabolic Pcv608 CO2 27.0 mEq/L 10/22/2016 Comp Metabolic Hfd546 AN ION GAP 13 10/22/2016 Comp Metabolic Sju272 GL UCOSE 103 mg/dL 10/22/2016 Comp Metabolic Rzz411 Cr eat 1.0 mg/dL 10/22/2016 Comp Metabolic Rmv363 eG FR 76 ml/min/1.73m2 10/22 Comp Metabolic Ltc298 BUN 27 mg/dL 10/22/2016 Comp Metabolic Mtg952 B/ C Ratio 27.0 Ratio 10/22/2016 Comp Metabolic Dgv709 CA LCIUM 9.3 mg/dL 10/22/2016 Comp Metabolic Qsw061 AL K PHOS 72 U/L 10/22/2016 Comp Metabolic Onj378 T(SGOT) 23 U/L 10/22/2016 Comp Metabolic Khy123 AL T(SGPT) 26 U/L 10/22/2016 Comp Metabolic Tzb528 BI LI T 0.4 mg/dL 10/22/2016 Comp Metabolic Ntj112 AL BUMIN 4.2 g/dL 10/22/2016 Comp Metabolic Xvr381 TP RO 6.7 g/dL 10/22/2016 Comp Metabolic Snn135 GL OB 2.5 g/dL 10/22/2016 Comp Metabolic Rtt976 A/ G Ratio 1.6 Ratio 10/22/2016 Comp Metabolic Mhb312 Os mo 287 mOsmo 10/22/2016 Comp Metabolic Aqx012 NA 143 mEq/L 06/17/2016 Comp Metabolic Wpt827 K 4.1 mEq/L 06/17/2016 Comp Metabolic Ebb808 CL 108 mEq/L 06/17/2016 Comp Metabolic Tmy409 CO2 28.0 mEq/L 06/17/2016 Comp Metabolic Ydx202 AN ION GAP 11 06/17/2016 Comp Metabolic Cpt479 GL UCOSE 106 mg/dL 06/17/2016 Comp Metabolic Lpf182 Cr eat 0.9 mg/dL 06/17/2016 Comp Metabolic Rfh414 eG FR 92 ml/min/1.73m2 06/17 Comp Metabolic Gch938 BUN 22 mg/dL 06/17/2016 Comp Metabolic Gfg107 B/ C Ratio 25.9 Ratio 06/17/2016 Comp Metabolic Ybp428 CA LCIUM 8.8 mg/dL 06/17/2016 Comp Metabolic Qbf348 AL K PHOS 55 U/L 06/17/2016 Comp Metabolic Yfu925 T(SGOT) 21 U/L 06/17/2016 Comp Metabolic Lxo328 AL T(SGPT) 24 U/L 06/17/2016 Comp Metabolic Dim538 BI LI T 0.6 mg/dL 06/17/2016 Comp Metabolic Nsd510 AL BUMIN 4.0 g/dL 06/17/2016 Comp Metabolic Xqt387 TP RO 6.2 g/dL 06/17/2016 Comp Metabolic Zzq340 GL OB 2.2 g/dL 06/17/2016 Comp Metabolic Mqm513 A/ G Ratio 1.8 Ratio 06/17/2016 Comp Metabolic Utt534 Os mo 289 mOsmo 06/17/2016 Lipid Ord30 CHOL 163 mg/dL 06/17/2016 Lipid Ord30 HDL 54.0 mg/dl 06/17/2016 Lipid Ord30 TRIG 133 mg/dL 06/17/2016 Lipid Ord30 LDL 82 mg/dL 06/17/2016 Lipid Ord30 C/HDL 3.0 Ratio 06/17/2016 %Hba1C Zcl290 % HbA1c 10979-7 6.0 % 06/17/2016 %Hba1C Bya223 Gluc Ave 126 mg/dL 06/17/2016 Total Psa [...] 29.6 % 06/17/2016 Cbc With Differential Ord2 [place]% 10.7 % 06/17/2016 Cbc With Differential Ord2 [...] 1.71 K/ul 06/17/2016 Cbc With Differential Ord2 [place] ABS# 0.6 K/ul 06/17/2016 Cbc With Differential Ord2 Eos ABS# 0.2 K/ul 06/17/2016 Cbc With Differential Ord2 Baso ABS# 0.0 K/ul 06/17/2016 Tsh Ord6 hTSH II 2.91 uIU/mL 06/17/2016 Tsh Ord6 hTSH II 2.45 uIU/mL 02/19/2016 %Hba1C Okz190 % HbA1c 48656-5 5.8 % 02/19/2016 %Hba1C Xpz706 Gluc Ave 120 mg/dL 02/19/2016 Comp Metabolic Szi236 NA 141 mEq/L 02/19/2016 Comp Metabolic Nxu013 K 4.2 mEq/L 02/19/2016 Comp Metabolic Loh955 CL 107 mEq/L 02/19/2016 Comp Metabolic Qij947 CO2 29.0 mEq/L 02/19/2016 Comp Metabolic Efh055 AN ION GAP 9 02/19/2016 Comp Metabolic Uwy806 GL UCOSE 106 mg/dL 02/19/2016 Comp Metabolic Goz253 Cr eat 0.9 mg/dL 02/19/2016 Comp Metabolic Qed662 eG FR 90 ml/min/1.73m2 02/18 Comp Metabolic Bhh419 BUN 24 mg/dL 02/19/2016 Comp Metabolic Wst891 B/ C Ratio 27.6 Ratio 02/19/2016 Comp Metabolic Lgs195 CA LCIUM 9.1 mg/dL 02/19/2016 Comp Metabolic Drl673 AL K PHOS 67 U/L 02/19/2016 Comp Metabolic Eob733 T(SGOT) 25 U/L 02/19/2016 Comp Metabolic Hxb233 AL T(SGPT) 31 U/L 02/19/2016 Comp Metabolic Hfh076 BI LI T 0.6 mg/dL 02/19/2016 Comp Metabolic Bby677 AL BUMIN 4.1 g/dL 02/19/2016 Comp Metabolic Fco155 TP RO 6.5 g/dL 02/19/2016 Comp Metabolic Ezj503 GL OB 2.4 g/dL 02/19/2016 Comp Metabolic Usv819 A/ G Ratio 1.7 Ratio 02/19/2016 Comp Metabolic Vdt116 Os mo 286 mOsmo 02/19/2016 Cbc With [...] 31.7 pg 02/19/2016 Cbc With Differential Ord2 [place]% 10.5 % 02/19/2016 Cbc With Differential Ord2 [...] 1.59 K/ul 02/19/2016 Cbc With Differential Ord2 [place] ABS# 0.6 K/ul 02/19/2016 Cbc With Differential Ord2 Eos ABS# 0.3 K/ul 02/19/2016 Cbc With Differential Ord2 Baso ABS# 0.0 K/ul 02/19/2016 Lipid Ord30 CHOL 174 mg/dL 02/19/2016 Lipid Ord30 HDL 54.0 mg/dl 02/19/2016 Lipid Ord30 TRIG 110 mg/dL 02/19/2016 Lipid Ord30 LDL 98 mg/dL 02/19/2016 Lipid Ord30 C/HDL 3.2 Ratio 02/19/2016 %Hba1C Dnh069 % HbA1c 17360-9 6.0 % 11/11/2015 %Hba1C Mag154 Gluc Ave 126 mg/dL 11/11/2015 %Hba1C Emg695 % HbA1c 48143-1 6.0 % 11/07/2015 %Hba1C Jud614 Gluc Ave 126 mg/dL 11/07/2015 Cbc With [...] 30.0 % 11/06/2015 Cbc With Differential Ord2 [place]% 9.5 % 11/06/2015 Cbc With Differential Ord2 [...] 1.79 K/ul 11/06/2015 Cbc With Differential Ord2 [place] ABS# 0.6 K/ul 11/06/2015 Cbc With Differential Ord2 Eos ABS# 0.3 K/ul 11/06/2015 Cbc With Differential Ord2 Baso ABS# 0.0 K/ul 11/06/2015 Comp Metabolic Lqv607 NA 141 mEq/L 11/06/2015 Comp Metabolic Irb281 K 4.3 mEq/L 11/06/2015 Comp Metabolic Kve410 CL 107 mEq/L 11/06/2015 Comp Metabolic Pke020 CO2 28.0 mEq/L 11/06/2015 Comp Metabolic Fka053 AN ION GAP 10 11/06/2015 Comp Metabolic Mlt813 GL UCOSE 117 mg/dL 11/06/2015 Comp Metabolic Bgi754 Cr eat 0.9 mg/dL 11/06/2015 Comp Metabolic Acw693 eG FR 88 ml/min/1.73m2 11/05 Comp Metabolic Boz095 BUN 22 mg/dL 11/06/2015 Comp Metabolic Bwj306 B/ C Ratio 25.0 Ratio 11/06/2015 Comp Metabolic Fid928 CA LCIUM 9.1 mg/dL 11/06/2015 Comp Metabolic Vaz066 AL K PHOS 59 U/L 11/06/2015 Comp Metabolic Tny484 T(SGOT) 23 U/L 11/06/2015 Comp Metabolic Byc862 AL T(SGPT) 26 U/L 11/06/2015 Comp Metabolic Eeu341 BI LI T 0.6 mg/dL 11/06/2015 Comp Metabolic Pua447 AL BUMIN 4.0 g/dL 11/06/2015 Comp Metabolic Mbt848 TP RO 6.4 g/dL 11/06/2015 Comp Metabolic Bra388 GL OB 2.4 g/dL 11/06/2015 Comp Metabolic Ikg507 A/ G Ratio 1.7 Ratio 11/06/2015 Comp Metabolic Kds698 Os mo 286 mOsmo 11/06/2015 Tsh Ord6 hTSH II 2.59 uIU/mL 11/06/2015 Lipid Ord30 CHOL 159 mg/dL 11/06/2015 Lipid Ord30 HDL 42.0 mg/dl 11/06/2015 Lipid Ord30 TRIG 129 mg/dL 11/06/2015 Lipid Ord30 LDL 91 mg/dL 11/06/2015 Lipid Ord30 C/HDL 3.8 Ratio 11/06/2015 Comp Metabolic Ugw699 NA 140 mEq/L 08/08/2015 Comp Metabolic Uiv931 K 4.0 mEq/L 08/08/2015 Comp Metabolic Xob410 CL 108 mEq/L 08/08/2015 Comp Metabolic Fkz634 CO2 25.0 mEq/L 08/08/2015 Comp Metabolic Hgz279 AN ION GAP 11 08/08/2015 Comp Metabolic Crz397 GL UCOSE 100 mg/dL 08/08/2015 Comp Metabolic Ueh938 Cr eat 0.9 mg/dL 08/08/2015 Comp Metabolic Lkz563 eG FR 82 ml/min/1.73m2 08/07 Comp Metabolic Kts431 BUN 19 mg/dL 08/08/2015 Comp Metabolic Ccr063 B/ C Ratio 20.2 Ratio 08/08/2015 Comp Metabolic Hhi504 CA LCIUM 8.5 mg/dL 08/08/2015 Comp Metabolic Hyu101 AL K PHOS 56 U/L 08/08/2015 Comp Metabolic Qwi339 T(SGOT) 18 U/L 08/08/2015 Comp Metabolic Lfr393 AL T(SGPT) 17 U/L 08/08/2015 Comp Metabolic Lpd708 BI LI T 0.7 mg/dL 08/08/2015 Comp Metabolic Guo654 AL BUMIN 3.9 g/dL 08/08/2015 Comp Metabolic Egv902 TP RO 6.2 g/dL 08/08/2015 Comp Metabolic Mxt773 GL OB 2.3 g/dL 08/08/2015 Comp Metabolic Alo407 A/ G Ratio 1.7 Ratio 08/08/2015 Comp Metabolic Ift419 Os mo 282 mOsmo 08/08/2015 Tsh Ord6 hTSH II 3.19 uIU/mL 08/08/2015 %Hba1C Luu013 % HbA1c 48011-9 5.7 % 08/08/2015 %Hba1C Drc484 Gluc Ave 117 mg/dL 08/08/2015 Cbc With [...] 93.7 fl 08/08/2015 Cbc With Differential Ord2 [place]% 10.9 % 08/08/2015 Cbc With Differential Ord2 [...] 1.51 K/ul 08/08/2015 Cbc With Differential Ord2 [place] ABS# 0.6 K/ul 08/08/2015 Cbc With Differential [...] retractions 08/25/2017 None Full Exam - General 1995 Respiratory respiratory effort/rhythm Overall: normal rate 08/25/2017 [...] Procedure Codes Date DRAIN/INJECT JOINT/B URSA CPT-4: 03452 08/25/2017 PPPS, SUBSEQ VISIT CPT- 4: G0439 05/30/2017 ADMIN INFLUENZA VIRU S VAC CPT-4: G0008 12/21/2016 FLU VACC PRSV FREE I NC ANTIG CPT-4: 30685 12/21/2016 PPPS, SUBSEQ VISIT CPT- 4: G0439 05/21/2016 TRIAMCINOLONE ACET I [place] NOS CPT-4: J3301 04/21/2016 THER/PROPH/DIAG INJ SC/IM CPT-4: 47760 04/21/2016 DRAIN/INJECT JOINT/B URSA CPT-4: 78644 11/13/2015 PNEUMOCOCCAL VACC [address]: 47944110 CPT-4: 65188 11/13/2015 ADMIN PNEUMOCOCCAL V ACCINE SNOMED CT: 28682217 CPT-4: G0009 11/13/2015 ADMIN INFLUENZA VIRU S VAC CPT-4: G0008 11/11/2015 FLU VACC 4 AZUL 3 YRS PLUS IM SNOMED CT: 77203420 CPT-4: 03043 11/11/2015 Vital Signs Date Vital 12/21/2017 Blood Pressure 1: 132/56 Code: 8480-6 BMI: 25.7 Code: 02065-2 Heart Rate 1: 58 bpm Height: 5'7" SpO2: 93% Weight: 164 lbs 08/25/2017 Blood Pressure 1: 126/74 Code: 8480-6 BMI: 26.2 Code: 51710-7 Heart Rate 1: 70 bpm Height: 5'7" SpO2: 94% Weight: 167 lbs 05/30/2017 Blood Pressure 1: 120/66 Code: 8480-6 BMI: 26.6 Code: 34314-8 Heart Rate 1: 66 bpm Height: 5'7" SpO2: 95% Waist Measure (cm): 97 cm Weight: 170 lbs 04/20/2017 Blood Pressure 1: 138/78 Code: 8480-6 BMI: 26.6 Code: 86109-6 Heart Rate 1: 86 bpm Height: 5'7" SpO2: 96% Weight: 170 lbs 01/21/2017 Blood Pressure 1: 136/70 Code: 8480-6 BMI: 26.3 Code: 89077-7 Heart Rate 1: 79 bpm Height: 5'7" SpO2: 95% Weight: 168 lbs 10/22/2016 Blood Pressure 1: 134/72 Code: 8480-6 BMI: 26.3 Code: 61094-3 Heart Rate 1: 70 bpm Height: 5'7" SpO2: 95% Weight: 168 lbs 10/04/2016 Blood Pressure 1: 142/80 Code: 8480-6 BMI: 26.6 Code: 42798-2 Heart Rate 1: 72 bpm Height: 5'7" SpO2: 93% Weight: 170 lbs 06/18/2016 Blood Pressure 1: 132/76 Code: 8480-6 BMI: 26.2 Code: 66784-8 Heart Rate 1: 65 bpm Height: 5'7" SpO2: 95% Weight: 167 lbs 8 oz 05/21/2016 Blood Pressure 1: 126/76 Code: 8480-6 BMI: 26.0 Code: 38066-6 Heart Rate 1: 72 bpm Height: 5'7" SpO2: 98% Weight: 166 lbs 04/29/2016 Blood Pressure 1: 128/70 Code: 8480-6 BMI: 25.7 Code: 83746-3 Heart Rate 1: 67 bpm Height: 5'7" SpO2: 97% Temperature: 36.3 (C ) / 97.4 (F) Weight: 164 lbs 04/21/2016 Blood Pressure 1: 130/62 Code: 8480-6 BMI: 26.3 Code: 40416-2 Heart Rate 1: 74 bpm Height: 5'7" SpO2: 96% Temperature: 37.0 (C ) / 98.6 (F) Weight: 168 lbs 02/20/2016 Blood Pressure 1: 120/64 Code: 8480-6 BMI: 26.2 Code: 12624-6 Heart Rate 1: 65 bpm Height: 5'7" SpO2: 94% Weight: 167 lbs 01/01/2016 Blood Pressure 1: 106/60 Code: 8480-6 BMI: 25.7 Code: 02946-8 Heart Rate 1: 73 bpm Height: 5'7" SpO2: 98% Weight: 164 lbs 11/13/2015 Blood Pressure 1: 122/86 Code: 8480-6 BMI: 25.8 Code: 20788-0 Heart Rate 1: 80 bpm Height: 5'7" SpO2: 92% Weight: 165 lbs 11/07/2015 Blood Pressure 1: 118/64 Code: 8480-6 BMI: 25.8 Code: 93066-9 Heart Rate 1: 66 bpm Height: 5'7" SpO2: 95% Weight: 165 lbs 08/07/2015 Blood Pressure 1: 122/80 Code: 8480-6 BMI: 24.4 Code: 86116-9 Heart Rate 1: 74 bpm Height: 5'7" [...] in right knee[ICD10: M25.561] Lakeisha Hoskins MD, [facility] CPT-4: 46711 12/21/2017 [id number] EST. PATIENT, LEVEL IV Diagnosis: Type 2 diabetes mellitus without complications[ICD10: E11.9] Diagnosis: Essential (primary) hypertension[ICD10: I10] Diagnosis: Pain in right knee[ICD10: M25.561] Lakeisha Hoskins MD, [facility] CPT-4: 18807 08/25/2017 [id number] EST. PATIENT, LEVEL IV Diagnosis: Type 2 diabetes mellitus without complications[ICD10: E11.9] Diagnosis: Essential (primary) hypertension[ICD10: I10] Lakeisha Hoskins MD, [facility] CPT-4: 41425 04/20/2017 ([id number]) [id number] EST. P ATIENT, LEVEL III Diagnosis: Essential (primary) hypertension[ICD10: I10] Diagnosis: Obstructive sleep apnea (adult) (pediatric)[ICD10: G47.33] Nancy Hoskins MD, [facility] CPT-4: 83300 01/21/2017 ([id number]) 96941 EST. P ATIENT, LEVEL IV Diagnosis: Essential (primary) hypertension[ICD10: I10] Diagnosis: Type 2 diabetes mellitus without complications[ICD10: E11.9] Diagnosis: Obstructive sleep apnea (adult) (pediatric)[ICD10: G47.33] Nancy Hoskins MD, [facility] CPT-4: 39566 10/22/2016 ([id number]) 52052 EST. P ATIENT, LEVEL III Diagnosis: Localized edema[ICD10: R60.0] Diagnosis: Rash and other nonspecific skin eruption[ICD10: R21] Nancy Hoskins MD, [facility] CPT-4: 44248 10/04/2016 ([id number]) [id number] EST. P ATIENT, LEVEL IV Diagnosis: Essential (primary) hypertension[ICD10: I10] Diagnosis: Type 2 diabetes mellitus without complications[ICD10: E11.9] Diagnosis: Mixed hyperlipidemia[ICD10: E78.2] Nancy Hoskins MD, [facility] CPT-4: 14385 06/18/2016 ([id number]) 64665 EST. P ATIENT, LEVEL III Diagnosis: Cough[ICD10: R05] Diagnosis: Acute bronchitis, unspecified[ICD10: J20.9] Nancy Hoskins MD, [facility] CPT-4: 90164 04/29/2016 [id number] EST. PATIENT, LEVEL IV Diagnosis: Other acute sinusitis[ICD10: J01.80] Diagnosis: Other allergic rhinitis[ICD10: J30.89] Lakeisha Hoskins MD, [facility] CPT-4: 06631 04/21/2016 ([id number]) 11366 EST. P ATIENT, LEVEL IV Diagnosis: Essential (primary) hypertension[ICD10: I10] Diagnosis: Type 2 diabetes mellitus without complications[ICD10: E11.9] Diagnosis: Mixed hyperlipidemia[ICD10: E78.2] Diagnosis: Primary generalized (osteo)arthritis[ICD10: M15.0] Nancy Hoskins MD, [facility] CPT-4: 42506 02/20/2016 ([id number]) 81153 EST. P ATIENT, LEVEL IV Diagnosis: Cough[ICD10: R05] Diagnosis: Acute bronchitis due to Hemophilus influenzae[ICD10: J20.1] Diagnosis: Type 2 diabetes mellitus without complications[ICD10: E11.9] Diagnosis: Essential (primary) hypertension[ICD10: I10] Charlene Hoskins MD, [facility] CPT-4: 04913 01/01/2016 ([id number]) 03731 EST. P ATIENT, LEVEL IV Diagnosis: Essential (primary) hypertension[ICD10: I10] Diagnosis: Mixed hyperlipidemia[ICD10: E78.2] Diagnosis: Type 2 diabetes mellitus without complications[ICD10: E11.9] Nancy Hoskins MD, [facility] CPT-4: 46802 11/07/2015 OFFICE VISIT, NEW - LEVEL 4 Diagnosis: Type 2 diabetes mellitus without complications[ICD10: E11.9] Diagnosis: Essential (primary) hypertension[ICD10: I10] Diagnosis: Mixed hyperlipidemia[ICD10: E78.2] Diagnosis: Elevated prostate specific antigen [PSA][ICD10: R97.2] Nancy Hoskins MD, [facility] CPT-4: 51836 08/07/2015 Plan of Care Planned Activity Notes [...] not improve. 12/21/2017 Appointment: Lakeisha Putnam WPtel: [address] [place], [place] [phone] min) Moderate 12/21/2017 Patient Education: Patient [...] of injection. 08/25/2017 Appointment: Lakeisha Putnam WPtel: [facility] (15 min) Moderate 08/25/2017 Patient Education: Patient [...] Summary Completed 05/30/2017 Appointment: Lakeisha Putnam WPtel: [facility] [facility] - Annual Wellness Visit 05/27/2017 Appointment: Nancy Tavares WPtel: [address] [place], [place] [id number] (30 min) Complex 04/22/2017 Visit Plan: Hypertension [...] [facility] (30 min) Complex 04/20/2017 Patient Education: Patient [...] CENTER. 01/21/2017 Appointment: [phone] (30 min) Complex 01/21/2017 Appointment: [phone] (30 min) Complex 01/21/2017 Patient Education: Patient [...] machine. 10/22/2016 Appointment: [facility]el[phone] (30 min) Complex 10/22/2016 Patient Education: Patient [...] of plan. 10/04/2016 Appointment: Nancy Tavares WPtel: [phone] (15 min) Moderate 10/04/2016 Patient Education: Patient [...] dications. 06/18/2016 Appointment: [facility]el[phone] (15 min) Moderate 06/18/2016 Patient Education: Patient [...] acutely worsen. 04/29/2016 Appointment: Nancy Tavares WPtel: [address] [place], [place] [id number] (15 min) Moderate 04/29/2016 Patient Education: Patient Medication Summary Completed 04/29/2016 Care Plan: CHEST X-RAY 2VW FRONTAL&LATL LOINC : 87897-3 Pending 04/29/2016 Visit Plan: Sinusitis - Pt [...] allergy spray. 04/21/2016 Appointment: Lakeisha Putnam WPtel: [address] [place], [place] [id number] (15 min) Moderate 04/21/2016 Patient Education: Patient [...] [phone] (30 min) Complex 02/20/2016 Patient Education: Patient [...] controlled. 01/01/2016 [phone] ([facility] min) Moderate 01/01/2016 Patient Education: Patient [...] of injection. 11/13/2015 Appointment: Nancy Tavares WPtel: [phone] [phone] (15 min) Moderate 11/13/2015 Patient Education: Patient [...] response to medications. DM-too early for Hgb [id number] to have done next week 11/07/2015 Appointment: Nancy Tavares WPtel: [phone] [phone] (15 min) Moderate 11/07/2015 Patient Education: Patient [...] results 08/07/2015 Appointment: [facility]el[phone] [place] New Patient 08/07/2015 Patient Education: Patient [...] TIMES WEEKLY CONTINUE STEROID CREAM ORDERED BY SHIP KEEPER CULTURE RASH LEFT AXILLA . Edema - [...] response to medications. DM-too early for Hgb [id number] to have done next week . Sinusitis [...] normal liver response to medications. Generalized OA-handicap christelle provided
--- OUTSIDE RECORDS SUMMARY | 2019-04-11 03:50 | XMS REPORT | CCD ---
Author Author Cesar Tavares Organization Charlene Hoskins MD, [facility] Address [address] [place] [address] Phone Care Team Providers Care Riddler Operator Name Role Phone PP Unavailable CCM Unavailable Summary Purpose Interface Exchange Insurance Providers Payer name Policy type / Coverage type Covered democrat ID Effective Begin Date Effective End Date WPS Medicare Part B Medicare Part B [id number] Unknown [facility] Part B [id number] Un known Family history Brother Diagnosis Age [...] Retir ed 08/07/[address]: 4548038 Quit over 10 years ago 1970 08/07/[address]: 670144542 Never drinks alcohol 08/07/2015 Allergies, Adverse Reactions, [...] mc g-50 mcg/dose powder for inhalation RxNorm: 7647842 INHALE 1 DOSE BY MOUTH TWICE DAILY 12/19/2017 No Stop Date Active meloxicam 7.5 mg tablet RxNorm: 560492 TAKE 1 TABLET BY MOUTH ONCE DAILY 12/01/2017 No Stop Date Active simvastatin 20 mg ta blet RxNorm: 941558 TAKE 1 TABLET BY MOUT H ONCE DAILY 11/14/2017 No Stop Date Active losartan 50 mg tablet RxNorm: 768717 TAKE ONE TABLET BY MOUTH ONCE DAILY 10/27/2017 No Stop Date Active fluticasone 50 mcg/a ctuation nasal spray,suspension RxNorm: 1185880 USE TWO SPRAY(S) IN EACH NOSTRIL ONCE DAILY 10/19/2017 No Stop Date Active Advair Diskus 250 mc g-50 mcg/dose powder for inhalation RxNorm: 5657837 INHALE 1 DOSE BY MOUTH TWICE DAILY 10/19/2017 12/18/2017 Inactive Kenalog 40 mg/mL [employer] pension for injection RxNorm: 3102745 1 Milliliter(s) Inj 08/25/2017 08/25/2017 In active meloxicam 7.5 mg tablet RxNorm: 884536 TAKE ONE TABLET BY MOUTH ONCE DAILY 06/06/2017 11/30/2017 In active simvastatin 20 mg ta blet RxNorm: 407871 TAKE ONE TABLET BY MO UTH ONCE DAILY 05/17/2017 11/13/2017 In active metformin 500 mg tablet RxNorm: 662961 TAKE ONE TABLET BY MOUTH ONCE DAILY 05/05/2017 No Stop Date Active Advair Diskus 250 mc g-50 mcg/dose powder for inhalation RxNorm: 4161180 INHALE ONE DOSE BY MOUTH TWICE DAILY 04/19/2017 10/18/2017 Inactive Tamiflu 75 mg capsule RxNorm: 939315 1 Capsule(s) PO daily 03/25/2017 03/24/2017 Inactive Tamiflu 75 mg capsule RxNorm: 692985 1 Capsule(s) PO daily 03/25/2017 03/31/2017 Inactive montelukast 10 mg ta blet RxNorm: 728100 TAKE ONE TABLET BY MO UTH ONCE DAILY 03/21/2017 No Stop Date Active losartan 50 mg tablet RxNorm: 463149 TAKE ONE TABLET BY MOUTH ONCE DAILY 01/27/2017 10/26/2017 In active fluticasone 50 mcg/a ctuation nasal spray,suspension RxNorm: 7119293 USE TWO SPRAY(S) IN EACH NOSTRIL ONCE DAILY 01/17/2017 10/18/2017 Inactive meloxicam 7.5 mg tablet RxNorm: 010638 TAKE ONE TABLET BY MOUTH ONCE DAILY 12/06/2016 06/03/2017 In active metformin 500 mg tablet RxNorm: 525747 Tablet(s) TAKE ONE TABLET BY MOUTH TWICE DAILY 11/30/2016 11/24/2017 Inactive simvastatin 20 mg ta blet RxNorm: 883732 TAKE ONE TABLET BY MO [facility] ONCE DAILY 11/15/2016 05/13/2017 In active Advair Diskus 250 mc g-50 mcg/dose powder for inhalation RxNorm: 8778841 INHALE ONE PUFF BY MOUTH TWICE DAILY 10/22/2016 04/18/2017 [facility]: 596464 1 Application TOP TIW 10/04/2016 10/17/2016 Inactive fluticasone 50 mcg/a ctuation nasal spray,suspension RxNorm: 3522816 USE TWO SPRAY(S) IN EACH NOSTRIL ONCE DAILY 09/21/2016 11/19/2016 Inactive montelukast 10 mg ta blet RxNorm: 848586 TAKE ONE TABLET BY [facility] ONCE DAILY 09/21/2016 03/19/2017 In active losartan 50 mg tablet RxNorm: 095721 TAKE ONE TABLET BY MOUTH ONCE DAILY 08/02/2016 01/26/2017 In active metformin 500 mg tablet RxNorm: 914263 TAKE ONE TABLET BY MOUTH TWICE DAILY 07/22/2016 10/19/2016 In active furosemide 20 mg tablet RxNorm: 578693 1 Tablet(s) PO daily as needed for swell ing 07/21/2016 10/18/2016 Inactive meloxicam 7.5 mg tablet RxNorm: 616966 TAKE ONE TABLET BY MOUTH ONCE DAILY 06/08/2016 12/04/2016 In active cefdinir 300 mg capsule RxNorm: 712113 1 Capsule(s) PO BID 04/29/2016 05/05/2016 Inactive prednisone 20 mg tablet RxNorm: 570575 1 Tablet(s) PO BID 04/29/2016 05/03/2016 Inactive Zithromax Z-Sherif 250 mg tablet RxNorm: 808231 1 Tablet(s) PO UD 04/21/2016 04/28/2016 Inactive Kenalog 40 mg/mL maggie pension for injection RxNorm: 6413791 1 Milliliter(s) Inj 04/21/2016 04/21/2016 In active montelukast 10 mg ta blet RxNorm: 120390 TAKE ONE TABLET BY [facility] ONCE DAILY 03/22/2016 09/17/2016 In active fluticasone 50 mcg/a ctuation nasal spray,suspension RxNorm: 2732859 2 [place] NASAL daily each nare 03/15/2016 07/12/2016 Inactive qs metformin 500 mg tablet RxNorm: 471642 1 Tablet(s) PO daily 01/16/2016 2016 Inactive Patient does not need a refill- just upd ate dosing simvastatin 40 mg ta blet RxNorm: 693856 1 Tablet(s) PO daily 01/01/2016 No Stop Date Active Advair Diskus 250 mc g-50 mcg/dose powder for inhalation RxNorm: 1992576 1 INH BID 01/01/2016 04/29/2016 In active Advair Diskus 250 mc g-50 mcg/dose powder for inhalation RxNorm: 1382705 1 INH daily 01/01/2016 12/31/2015 Inactive metformin 500 mg tablet RxNorm: 633445 1 Tablet(s) PO daily 01/01/2016 01/15/2016 Inactive azithromycin 250 mg tablet RxNorm: 544990 1 Tablet(s) PO take t wo pills on day #1, then one pill daily x 4 more days 01/01/2016 02/17/2016 Inactive meloxicam 7.5 mg tablet RxNorm: 331584 1 Tablet(s) PO daily 12/11/2015 06/07/2016 Inactive simvastatin 20 mg ta blet RxNorm: 795720 1 Tablet(s) PO daily 11/21/2015 12/31/2015 Inactive metformin 500 mg tablet RxNorm: 547135 1 Tablet(s) PO BID 11/21/2015 12/31/2015 Inactive Advair Diskus 250 mc g-50 mcg/dose powder for inhalation RxNorm: 2189088 1 INH BID 11/21/2015 12/31/2015 In active montelukast 10 mg ta blet RxNorm: 386783 1 Tablet(s) PO daily 09/25/2015 03/21/2016 Inactive losartan 50 mg tablet RxNorm: 864686 1 Tablet(s) PO daily 09/04/2015 08/01/2016 Inactive Restasis 0.05 % eye drops in a dropperette RxNorm: 058298 1 gtts OPH BID 08/07/2015 No Stop Date Active meloxicam 7.5 mg tablet RxNorm: 434883 1 Tablet(s) PO daily 08/07/2015 09/05/2015 Inactive Kay oral RxNorm: 017975 oral No Start Date Active finasteride 5 mg tablet RxNorm: 023094 1 Tablet(s) PO daily No Start Date Active Zyrtec 10 mg tablet RxNorm: 5570583 1 Tablet(s) PO daily No Start Date Active Co Q-10 200 mg capsule RxNorm: 115358 1 Capsule(s) PO daily No Start Date Active Calcium 500 + D (D3) oral RxNorm: 158013 oral No S tart Date Active simethicone 125 mg c apsule RxNorm: 589954 Capsule(s) PO as needed No Start Date Active Vitamin D3 1,000 uni t tablet RxNorm: 375134 1 Tablet(s) PO daily No Start Date Active omega-3 fatty acids 1,000 mg capsule RxNorm: 4 Capsule(s) PO daily No Start Date Active triamcinolone aceton chasity 0.1 % topical cream RxNorm: 3633515 1 TOP UD No Start Date Active fluticasone 50 mcg/a ctuation nasal spray,suspension RxNorm: 9909501 2 [place] NASAL daily each nare No Start Date 03/14/2016 Inactive losartan 50 mg tablet RxNorm: 828394 1 Tablet(s) PO daily No Start Date 09/03/2015 Inactive metformin 500 mg tablet RxNorm: 796437 1 Tablet(s) PO daily No Start Date 11/20/2015 Inactive simvastatin 40 mg ta blet RxNorm: 317370 1 Tablet(s) PO daily No Start Date 11/20/2015 Inactive furosemide 20 mg tablet RxNorm: 409001 1 Tablet(s) PO daily as needed No Start Date 07/20/2016 Inactive Advair Diskus 250 mc g-50 mcg/dose powder for inhalation RxNorm: 3645297 1 INH daily No Start Date 11/20/2015 Inactive Multiple Vitamin oral RxNorm: 62297 oral No Start Date 12/31/2015 Inactive montelukast 10 mg ta blet RxNorm: 503573 1 Tablet(s) PO daily No Start Date 09/24/2015 Inactive Medication Administered Medication Codes Instruc tions Start Date Status Kenalog 40 mg/mL suspension for injection RxNorm: 6795580 1Milliliter 08/25/2017 N o longer Active Kenalog 40 mg/mL suspension for injection RxNorm: 7856785 1Milliliter 04/21/2016 N o longer Active Immunizations [...] Code Item Item Code Result Date %Hba1C Fzc496 % HbA1c 85587-0 6.0 % 12/21/2017 %Hba1C Qgi944 Gluc Ave 126 mg/dL 12/21/2017 %Hba1C Loq739 % HbA1c 54744-8 6.2 % 04/20/2017 %Hba1C Hxh626 Gluc Ave 131 mg/dL 04/20/2017 Cbc With [...] 27.7 % 04/20/2017 Cbc With Differential Ord2 [place]% 9.3 % 04/20/2017 Cbc With Differential Ord2 [...] 1.82 K/ul 04/20/2017 Cbc With Differential Ord2 [place] ABS# 0.6 K/ul 04/20/2017 Cbc With Differential Ord2 Eos ABS# 0.2 K/ul 04/20/2017 Cbc With Differential Ord2 Baso ABS# 0.0 K/ul 04/20/2017 Comp Metabolic Kfy036 NA 141 mEq/L 04/20/2017 Comp Metabolic Apb974 K 4.5 mEq/L 04/20/2017 Comp Metabolic Uks877 CL 106 mEq/L 04/20/2017 Comp Metabolic Tsq924 CO2 27.0 mEq/L 04/20/2017 Comp Metabolic Vkk084 AN ION GAP 13 04/20/2017 Comp Metabolic Bvj029 GL UCOSE 109 mg/dL 04/20/2017 Comp Metabolic Jlg623 Cr eat 1.0 mg/dL 04/20/2017 Comp Metabolic Uzj217 eG FR 81 ml/min/1.73m2 04/20 Comp Metabolic Rhg419 BUN 23 mg/dL 04/20/2017 Comp Metabolic Kej386 B/ C Ratio 24.2 Ratio 04/20/2017 Comp Metabolic Jwq829 CA LCIUM 9.3 mg/dL 04/20/2017 Comp Metabolic Mfo820 AL K PHOS 82 U/L 04/20/2017 Comp Metabolic Qce105 T(SGOT) 22 U/L 04/20/2017 Comp Metabolic Kzy990 AL T(SGPT) 24 U/L 04/20/2017 Comp Metabolic Bqe356 BI LI T 0.4 mg/dL 04/20/2017 Comp Metabolic Dkp482 AL BUMIN 4.3 g/dL 04/20/2017 Comp Metabolic Rgm815 TP RO 6.8 g/dL 04/20/2017 Comp Metabolic Bct370 GL OB 2.5 g/dL 04/20/2017 Comp Metabolic Ulq260 A/ G Ratio 1.7 Ratio 04/20/2017 Comp Metabolic Uab677 Os mo 286 mOsmo 04/20/2017 %Hba1C Tmr641 % HbA1c 20813-3 5.8 % 10/22/2016 %Hba1C Uam136 Gluc Ave 120 mg/dL 10/22/2016 Cbc With Differential Ord2 WBC 7.27 K/ul 10/22/2016 Cbc With Differential Ord2 RBC 4.09 M/ul 10/22/2016 Cbc With Differential Ord2 HGB 13.3 g/dl 10/22/2016 Cbc With Differential Ord2 Neut% 60.6 % 10/22/2016 Cbc With Differential Ord2 HCT 39.4 % 10/22/2016 Cbc With Differential Ord2 MCV 96.3 fl 10/22/2016 Cbc With Differential Ord2 Lymph% 25.4 % 10/22/2016 Cbc With Differential Ord2 MCH 32.5 pg 10/22/2016 Cbc With Differential Ord2 [place]% 10.3 % 10/22/2016 Cbc With Differential Ord2 [...] 1.85 K/ul 10/22/2016 Cbc With Differential Ord2 [place] ABS# 0.8 K/ul 10/22/2016 Cbc With Differential Ord2 Eos ABS# 0.3 K/ul 10/22/2016 Cbc With Differential Ord2 Baso ABS# 0.0 K/ul 10/22/2016 Comp Metabolic Ffr114 NA 141 mEq/L 10/22/2016 Comp Metabolic Nhq160 K 4.4 mEq/L 10/22/2016 Comp Metabolic Hqm937 CL 105 mEq/L 10/22/2016 Comp Metabolic Ujz793 CO2 27.0 mEq/L 10/22/2016 Comp Metabolic Vbx936 AN ION GAP 13 10/22/2016 Comp Metabolic Phc245 GL UCOSE 103 mg/dL 10/22/2016 Comp Metabolic Xpm125 Cr eat 1.0 mg/dL 10/22/2016 Comp Metabolic Nan403 eG FR 76 ml/min/1.73m2 10/22 Comp Metabolic Lbp104 BUN 27 mg/dL 10/22/2016 Comp Metabolic Mwb050 B/ C Ratio 27.0 Ratio 10/22/2016 Comp Metabolic Mvb468 CA LCIUM 9.3 mg/dL 10/22/2016 Comp Metabolic Xkc502 AL K PHOS 72 U/L 10/22/2016 Comp Metabolic Gsa116 T(SGOT) 23 U/L 10/22/2016 Comp Metabolic Qdz451 AL T(SGPT) 26 U/L 10/22/2016 Comp Metabolic Wip554 BI LI T 0.4 mg/dL 10/22/2016 Comp Metabolic Gsm712 AL BUMIN 4.2 g/dL 10/22/2016 Comp Metabolic Ecp947 TP RO 6.7 g/dL 10/22/2016 Comp Metabolic Hhb465 GL OB 2.5 g/dL 10/22/2016 Comp Metabolic Cll350 A/ G Ratio 1.6 Ratio 10/22/2016 Comp Metabolic Vry118 Os mo 287 mOsmo 10/22/2016 Comp Metabolic Qvd338 NA 143 mEq/L 06/17/2016 Comp Metabolic Ync989 K 4.1 mEq/L 06/17/2016 Comp Metabolic Ror640 CL 108 mEq/L 06/17/2016 Comp Metabolic Icj191 CO2 28.0 mEq/L 06/17/2016 Comp Metabolic Rhy146 AN ION GAP 11 06/17/2016 Comp Metabolic Vbq884 GL UCOSE 106 mg/dL 06/17/2016 Comp Metabolic Vxs130 Cr eat 0.9 mg/dL 06/17/2016 Comp Metabolic Jyr261 eG FR 92 ml/min/1.73m2 06/17 Comp Metabolic Fvl593 BUN 22 mg/dL 06/17/2016 Comp Metabolic Wup209 B/ C Ratio 25.9 Ratio 06/17/2016 Comp Metabolic Kzd326 CA LCIUM 8.8 mg/dL 06/17/2016 Comp Metabolic Qho296 AL K PHOS 55 U/L 06/17/2016 Comp Metabolic Bwu203 T(SGOT) 21 U/L 06/17/2016 Comp Metabolic Mqv560 AL T(SGPT) 24 U/L 06/17/2016 Comp Metabolic Wdw246 BI LI T 0.6 mg/dL 06/17/2016 Comp Metabolic Orm358 AL BUMIN 4.0 g/dL 06/17/2016 Comp Metabolic Pis709 TP RO 6.2 g/dL 06/17/2016 Comp Metabolic Jfk555 GL OB 2.2 g/dL 06/17/2016 Comp Metabolic Vrf379 A/ G Ratio 1.8 Ratio 06/17/2016 Comp Metabolic Upe448 Os mo 289 mOsmo 06/17/2016 Lipid Ord30 CHOL 163 mg/dL 06/17/2016 Lipid Ord30 HDL 54.0 mg/dl 06/17/2016 Lipid Ord30 TRIG 133 mg/dL 06/17/2016 Lipid Ord30 LDL 82 mg/dL 06/17/2016 Lipid Ord30 C/HDL 3.0 Ratio 06/17/2016 %Hba1C Viw062 % HbA1c 37359-4 6.0 % 06/17/2016 %Hba1C Pzx093 Gluc Ave 126 mg/dL 06/17/2016 Total Psa [...] 32.7 pg 06/17/2016 Cbc With Differential Ord2 [place]% 10.7 % 06/17/2016 Cbc With Differential Ord2 [...] 1.71 K/ul 06/17/2016 Cbc With Differential Ord2 [place] ABS# 0.6 K/ul 06/17/2016 Cbc With Differential Ord2 Eos ABS# 0.2 K/ul 06/17/2016 Cbc With Differential Ord2 Baso ABS# 0.0 K/ul 06/17/2016 Tsh Ord6 hTSH II 2.91 uIU/mL 06/17/2016 Tsh Ord6 hTSH II 2.45 uIU/mL 02/19/2016 %Hba1C Zth544 % HbA1c 36448-9 5.8 % 02/19/2016 %Hba1C Ffn157 Gluc Ave 120 mg/dL 02/19/2016 Comp Metabolic Unc734 NA 141 mEq/L 02/19/2016 Comp Metabolic Cqt399 K 4.2 mEq/L 02/19/2016 Comp Metabolic Ext906 CL 107 mEq/L 02/19/2016 Comp Metabolic Kqh503 CO2 29.0 mEq/L 02/19/2016 Comp Metabolic Gdw289 AN ION GAP 9 02/19/2016 Comp Metabolic Arh446 GL UCOSE 106 mg/dL 02/19/2016 Comp Metabolic Hlx079 Cr eat 0.9 mg/dL 02/19/2016 Comp Metabolic Qzj365 eG FR 90 ml/min/1.73m2 02/18 Comp Metabolic Bvg502 BUN 24 mg/dL 02/19/2016 Comp Metabolic Dfc266 B/ C Ratio 27.6 Ratio 02/19/2016 Comp Metabolic Bjo693 CA LCIUM 9.1 mg/dL 02/19/2016 Comp Metabolic Pic622 AL K PHOS 67 U/L 02/19/2016 Comp Metabolic Bqe510 T(SGOT) 25 U/L 02/19/2016 Comp Metabolic Nzm823 AL T(SGPT) 31 U/L 02/19/2016 Comp Metabolic Dcl552 BI LI T 0.6 mg/dL 02/19/2016 Comp Metabolic Mcy167 AL BUMIN 4.1 g/dL 02/19/2016 Comp Metabolic Dkx551 TP RO 6.5 g/dL 02/19/2016 Comp Metabolic Hzx720 GL OB 2.4 g/dL 02/19/2016 Comp Metabolic Ofl731 A/ G Ratio 1.7 Ratio 02/19/2016 Comp Metabolic Dso635 Os mo 286 mOsmo 02/19/2016 Cbc With Differential Ord2 WBC 5.92 K/ul 02/19/2016 Cbc With Differential Ord2 RBC 4.13 M/ul 02/19/2016 Cbc With Differential Ord2 HGB 13.1 g/dl 02/19/2016 Cbc With Differential Ord2 Neut% 57.2 % 02/19/2016 Cbc With Differential Ord2 HCT 39.3 % 02/19/2016 Cbc With Differential Ord2 MCV 95.2 fl 02/19/2016 Cbc With Differential Ord2 Lymph% 26.9 % 02/19/2016 Cbc With Differential Ord2 MCH 31.7 pg 02/19/2016 Cbc With Differential Ord2 [place]% 10.5 % 02/19/2016 Cbc With Differential Ord2 [...] 1.59 K/ul 02/19/2016 Cbc With Differential Ord2 [place] ABS# 0.6 K/ul 02/19/2016 Cbc With Differential Ord2 Eos ABS# 0.3 K/ul 02/19/2016 Cbc With Differential Ord2 Baso ABS# 0.0 K/ul 02/19/2016 Lipid Ord30 CHOL 174 mg/dL 02/19/2016 Lipid Ord30 HDL 54.0 mg/dl 02/19/2016 Lipid Ord30 TRIG 110 mg/dL 02/19/2016 Lipid Ord30 LDL 98 mg/dL 02/19/2016 Lipid Ord30 C/HDL 3.2 Ratio 02/19/2016 %Hba1C Eas069 % HbA1c 44119-7 6.0 % 11/11/2015 %Hba1C Ynm529 Gluc Ave 126 mg/dL 11/11/2015 %Hba1C Nek203 % HbA1c 39446-4 6.0 % 11/07/2015 %Hba1C Ayh472 Gluc Ave 126 mg/dL 11/07/2015 Cbc With [...] 32.0 pg 11/06/2015 Cbc With Differential Ord2 [place]% 9.5 % 11/06/2015 Cbc With Differential Ord2 [...] 1.79 K/ul 11/06/2015 Cbc With Differential Ord2 [place] ABS# 0.6 K/ul 11/06/2015 Cbc With Differential Ord2 Eos ABS# 0.3 K/ul 11/06/2015 Cbc With Differential Ord2 Baso ABS# 0.0 K/ul 11/06/2015 Comp Metabolic Jzm882 NA 141 mEq/L 11/06/2015 Comp Metabolic Coj606 K 4.3 mEq/L 11/06/2015 Comp Metabolic Xlj094 CL 107 mEq/L 11/06/2015 Comp Metabolic Wzx050 CO2 28.0 mEq/L 11/06/2015 Comp Metabolic Kdu842 AN ION GAP 10 11/06/2015 Comp Metabolic Pza438 GL UCOSE 117 mg/dL 11/06/2015 Comp Metabolic Hsb298 Cr eat 0.9 mg/dL 11/06/2015 Comp Metabolic Hqy330 eG FR 88 ml/min/1.73m2 11/05 Comp Metabolic Mcr677 BUN 22 mg/dL 11/06/2015 Comp Metabolic Yzk033 B/ C Ratio 25.0 Ratio 11/06/2015 Comp Metabolic Hab788 CA LCIUM 9.1 mg/dL 11/06/2015 Comp Metabolic Bra043 AL K PHOS 59 U/L 11/06/2015 Comp Metabolic Iwy020 T(SGOT) 23 U/L 11/06/2015 Comp Metabolic Tpr781 AL T(SGPT) 26 U/L 11/06/2015 Comp Metabolic Ozl525 BI LI T 0.6 mg/dL 11/06/2015 Comp Metabolic Mft675 AL BUMIN 4.0 g/dL 11/06/2015 Comp Metabolic Fay802 TP RO 6.4 g/dL 11/06/2015 Comp Metabolic Dgs235 GL OB 2.4 g/dL 11/06/2015 Comp Metabolic Odu827 A/ G Ratio 1.7 Ratio 11/06/2015 Comp Metabolic Qhv527 Os mo 286 mOsmo 11/06/2015 Tsh Ord6 hTSH II 2.59 uIU/mL 11/06/2015 Lipid Ord30 CHOL 159 mg/dL 11/06/2015 Lipid Ord30 HDL 42.0 mg/dl 11/06/2015 Lipid Ord30 TRIG 129 mg/dL 11/06/2015 Lipid Ord30 LDL 91 mg/dL 11/06/2015 Lipid Ord30 C/HDL 3.8 Ratio 11/06/2015 Comp Metabolic Yab383 NA 140 mEq/L 08/08/2015 Comp Metabolic Rxp540 K 4.0 mEq/L 08/08/2015 Comp Metabolic Gwy844 CL 108 mEq/L 08/08/2015 Comp Metabolic Kmw876 CO2 25.0 mEq/L 08/08/2015 Comp Metabolic Ikw793 AN ION GAP 11 08/08/2015 Comp Metabolic Rwy654 GL UCOSE 100 mg/dL 08/08/2015 Comp Metabolic Qne281 Cr eat 0.9 mg/dL 08/08/2015 Comp Metabolic Ywx142 eG FR 82 ml/min/1.73m2 08/07 Comp Metabolic Prr540 BUN 19 mg/dL 08/08/2015 Comp Metabolic Lnw909 B/ C Ratio 20.2 Ratio 08/08/2015 Comp Metabolic Dee229 CA LCIUM 8.5 mg/dL 08/08/2015 Comp Metabolic Gdw111 AL K PHOS 56 U/L 08/08/2015 Comp Metabolic Wfr123 T(SGOT) 18 U/L 08/08/2015 Comp Metabolic Fva831 AL T(SGPT) 17 U/L 08/08/2015 Comp Metabolic Plz792 BI LI T 0.7 mg/dL 08/08/2015 Comp Metabolic Ruu795 AL BUMIN 3.9 g/dL 08/08/2015 Comp Metabolic Fgn283 TP RO 6.2 g/dL 08/08/2015 Comp Metabolic Wik279 GL OB 2.3 g/dL 08/08/2015 Comp Metabolic Ikb491 A/ G Ratio 1.7 Ratio 08/08/2015 Comp Metabolic Tdd939 Os mo 282 mOsmo 08/08/2015 Tsh Ord6 hTSH II 3.19 uIU/mL 08/08/2015 %Hba1C Yhb208 % HbA1c 21104-8 5.7 % 08/08/2015 %Hba1C Ncz305 Gluc Ave 117 mg/dL 08/08/2015 Cbc With [...] 29.4 % 08/08/2015 Cbc With Differential Ord2 [place]% 10.9 % 08/08/2015 Cbc With Differential Ord2 MCH 31.4 pg 08/08/2015 Cbc With Differential Ord2 Eos% 4.3 % 08/08/2015 Cbc With Differential Ord2 MCHC 33.5 pg 08/08/2015 Cbc With Differential Ord2 Baso% 0.4 % 08/08/2015 Cbc With Differential Ord2 PLT 205 K/ul 08/08/2015 Cbc With Differential Ord2 Neut ABS# 2.83 K/ul 08/08/2015 Cbc With Differential Ord2 RDW 13.6 % 08/08/2015 Cbc With Differential Ord2 Lymph ABS# 1.51 K/ul 08/08/2015 Cbc With Differential Ord2 [place] ABS# 0.6 K/ul 08/08/2015 Cbc With Differential [...] Procedure Codes Date DRAIN/INJECT JOINT/B URSA CPT-4: 37091 08/25/2017 PPPS, SUBSEQ VISIT CPT- 4: G0439 05/30/2017 ADMIN INFLUENZA VIRU S VAC CPT-4: G0008 12/21/2016 FLU VACC PRSV FREE I NC ANTIG CPT-4: 06169 12/21/2016 PPPS, SUBSEQ VISIT CPT- 4: G0439 05/21/2016 TRIAMCINOLONE ACET I [place] NOS CPT-4: J3301 04/21/2016 THER/PROPH/DIAG INJ SC/IM CPT-4: 82216 04/21/2016 DRAIN/INJECT JOINT/B URSA CPT-4: 54226 11/13/2015 PNEUMOCOCCAL VACC [address]: 34111280 CPT-4: 72103 11/13/2015 ADMIN PNEUMOCOCCAL V ACCINE SNOMED CT: 51016636 CPT-4: G0009 11/13/2015 ADMIN INFLUENZA VIRU S VAC CPT-4: G0008 11/11/2015 FLU VACC 4 AZUL 3 YRS PLUS IM SNOMED CT: 55049049 CPT-4: 22577 11/11/2015 Vital Signs Date Vital 12/21/2017 Blood Pressure 1: 132/56 Code: 8480-6 BMI: 25.7 Code: 48513-1 Heart Rate 1: 58 bpm Height: 5'7" SpO2: 93% Weight: 164 lbs 08/25/2017 Blood Pressure 1: 126/74 Code: 8480-6 BMI: 26.2 Code: 13107-9 Heart Rate 1: 70 bpm Height: 5'7" SpO2: 94% Weight: 167 lbs 05/30/2017 Blood Pressure 1: 120/66 Code: 8480-6 BMI: 26.6 Code: 24598-1 Heart Rate 1: 66 bpm Height: 5'7" SpO2: 95% Waist Measure (cm): 97 cm Weight: 170 lbs 04/20/2017 Blood Pressure 1: 138/78 Code: 8480-6 BMI: 26.6 Code: 23975-0 Heart Rate 1: 86 bpm Height: 5'7" SpO2: 96% Weight: 170 lbs 01/21/2017 Blood Pressure 1: 136/70 Code: 8480-6 BMI: 26.3 Code: 09738-2 Heart Rate 1: 79 bpm Height: 5'7" SpO2: 95% Weight: 168 lbs 10/22/2016 Blood Pressure 1: 134/72 Code: 8480-6 BMI: 26.3 Code: 85367-5 Heart Rate 1: 70 bpm Height: 5'7" SpO2: 95% Weight: 168 lbs 10/04/2016 Blood Pressure 1: 142/80 Code: 8480-6 BMI: 26.6 Code: 73176-0 Heart Rate 1: 72 bpm Height: 5'7" SpO2: 93% Weight: 170 lbs 06/18/2016 Blood Pressure 1: 132/76 Code: 8480-6 BMI: 26.2 Code: 19601-1 Heart Rate 1: 65 bpm Height: 5'7" SpO2: 95% Weight: 167 lbs 8 oz 05/21/2016 Blood Pressure 1: 126/76 Code: 8480-6 BMI: 26.0 Code: 16283-3 Heart Rate 1: 72 bpm Height: 5'7" SpO2: 98% Weight: 166 lbs 04/29/2016 Blood Pressure 1: 128/70 Code: 8480-6 BMI: 25.7 Code: 25283-1 Heart Rate 1: 67 bpm Height: 5'7" SpO2: 97% Temperature: 36.3 (C ) / 97.4 (F) Weight: 164 lbs 04/21/2016 Blood Pressure 1: 130/62 Code: 8480-6 BMI: 26.3 Code: 87387-8 Heart Rate 1: 74 bpm Height: 5'7" SpO2: 96% Temperature: 37.0 (C ) / 98.6 (F) Weight: 168 lbs 02/20/2016 Blood Pressure 1: 120/64 Code: 8480-6 BMI: 26.2 Code: 44070-7 Heart Rate 1: 65 bpm Height: 5'7" SpO2: 94% Weight: 167 lbs 01/01/2016 Blood Pressure 1: 106/60 Code: 8480-6 BMI: 25.7 Code: 72387-7 Heart Rate 1: 73 bpm Height: 5'7" SpO2: 98% Weight: 164 lbs 11/13/2015 Blood Pressure 1: 122/86 Code: 8480-6 BMI: 25.8 Code: 99532-0 Heart Rate 1: 80 bpm Height: 5'7" SpO2: 92% Weight: 165 lbs 11/07/2015 Blood Pressure 1: 118/64 Code: 8480-6 BMI: 25.8 Code: 57182-7 Heart Rate 1: 66 bpm Height: 5'7" SpO2: 95% Weight: 165 lbs 08/07/2015 Blood Pressure 1: 122/80 Code: 8480-6 BMI: 24.4 Code: 32397-6 Heart Rate 1: 74 bpm Height: 5'7" [...] Encounters Encounter Performer Loca tion Codes Date 91329 EST. PATIENT, LEVEL IV Diagnosis: Type 2 diabetes mellitus without complications[ICD10: E11.9] Diagnosis: Essential (primary) hypertension[ICD10: I10] Diagnosis: Pain in right knee[ICD10: M25.561] Lakeisha Hoskins MD, [facility] CPT-4: 90785 12/21/2017 [id number] EST. PATIENT, LEVEL IV Diagnosis: Type 2 diabetes mellitus without complications[ICD10: E11.9] Diagnosis: Essential (primary) hypertension[ICD10: I10] Diagnosis: Pain in right knee[ICD10: M25.561] Lakeisha Hoskins MD, [facility] CPT-4: 26490 08/25/2017 22822 EST. PATIENT, LEVEL IV Diagnosis: Type 2 diabetes mellitus without complications[ICD10: E11.9] Diagnosis: Essential (primary) hypertension[ICD10: I10] Lakeisha Hoskins MD, [facility] CPT-4: 99201 04/20/2017 ([id number]) 43654 EST. P ATIENT, LEVEL III Diagnosis: Essential (primary) hypertension[ICD10: I10] Diagnosis: Obstructive sleep apnea (adult) (pediatric)[ICD10: G47.33] Nancy Hoskins MD, [facility] CPT-4: 86916 01/21/2017 ([id number]) 73357 EST. P ATIENT, LEVEL IV Diagnosis: Essential (primary) hypertension[ICD10: I10] Diagnosis: Type 2 diabetes mellitus without complications[ICD10: E11.9] Diagnosis: Obstructive sleep apnea (adult) (pediatric)[ICD10: G47.33] Nancy Hoskins MD, [facility] CPT-4: 42847 10/22/2016 ([id number]) 09580 EST. P ATIENT, LEVEL III Diagnosis: Localized edema[ICD10: R60.0] Diagnosis: Rash and other nonspecific skin eruption[ICD10: R21] Nancy Hoskins MD, [facility] CPT-4: 66416 10/04/2016 ([id number]) 04297 EST. P ATIENT, LEVEL IV Diagnosis: Essential (primary) hypertension[ICD10: I10] Diagnosis: Type 2 diabetes mellitus without complications[ICD10: E11.9] Diagnosis: Mixed hyperlipidemia[ICD10: E78.2] Nancy Hoskins MD, [facility] CPT-4: 92738 06/18/2016 ([id number]) 12497 EST. P ATIENT, LEVEL III Diagnosis: Cough[ICD10: R05] Diagnosis: Acute bronchitis, unspecified[ICD10: J20.9] Nancy Hoskins MD, [facility] CPT-4: 31662 04/29/2016 [id number] EST. PATIENT, LEVEL IV Diagnosis: Other acute sinusitis[ICD10: J01.80] Diagnosis: Other allergic rhinitis[ICD10: J30.89] Lakeisha Hoskins MD, [facility] CPT-4: 64422 04/21/2016 ([id number]) 29775 EST. P ATIENT, LEVEL IV Diagnosis: Essential (primary) hypertension[ICD10: I10] Diagnosis: Type 2 diabetes mellitus without complications[ICD10: E11.9] Diagnosis: Mixed hyperlipidemia[ICD10: E78.2] Diagnosis: Primary generalized (osteo)arthritis[ICD10: M15.0] Nancy Hoskins MD, [facility] CPT-4: 36837 02/20/2016 ([id number]) 39589 EST. P ATIENT, LEVEL IV Diagnosis: Cough[ICD10: R05] Diagnosis: Acute bronchitis due to Hemophilus influenzae[ICD10: J20.1] Diagnosis: Type 2 diabetes mellitus without complications[ICD10: E11.9] Diagnosis: Essential (primary) hypertension[ICD10: I10] Charlene Hoskins MD, [facility] CPT-4: 80962 01/01/2016 ([id number]) [id number] EST. P ATIENT, LEVEL IV Diagnosis: Essential (primary) hypertension[ICD10: I10] Diagnosis: Mixed hyperlipidemia[ICD10: E78.2] Diagnosis: Type 2 diabetes mellitus without complications[ICD10: E11.9] Nancy Hoskins MD, [facility] CPT-4: 35054 11/07/2015 OFFICE VISIT, NEW - LEVEL 4 Diagnosis: Type 2 diabetes mellitus without complications[ICD10: E11.9] Diagnosis: Essential (primary) hypertension[ICD10: I10] Diagnosis: Mixed hyperlipidemia[ICD10: E78.2] Diagnosis: Elevated prostate specific antigen [PSA][ICD10: R97.2] [facility] CPT-4: 78544 08/07/2015 Plan of Care Planned Activity Notes [...] or does not improve. 12/21/2017 Appointment: Lakeisha Putnaml: [address] [place], [place] [address] (15 min) Moderate 12/21/2017 Patient Education: Patient [...] the site of injection. 08/25/2017 Appointment: Lakeisha Putnam: [phone] [facility] (15 min) Moderate 08/25/2017 Patient Education: [...] Summary Completed 05/30/2017 Appointment: Lakeisha Putnam WPtel: [phone] [facility] - Annual Wellness Visit 05/27/2017 Appointment: Nancy Tavares WPtel: [phone] [phone] (30 min) Complex 04/22/2017 Visit Plan: [...] 04/20/2017 Appointment: Lakeisha Putnam WPtel: [phone] [facility] (30 min) Complex 04/20/2017 Patient Education: [...] improved sleep, etc. Will fax note to [facility]. 01/21/2017 Appointment: Nancy Tavares WPtel: [phone] [phone] (30 min) Complex 01/21/2017 Appointment: Nancy Tavares WPtel: [phone] (30 min) Complex 01/21/2017 Patient Education: [...] doing well-due for a new machine-will call [facility] to see what we need to do to get him a new machine. 10/22/2016 Appointment: Nancy Tavares WPtel: [phone] (30 min) Complex 10/22/2016 Patient Education: [...] plan. 10/04/2016 Appointment: Nancy Tavares WPtel: [phone] (15 min) Moderate 10/04/2016 Patient Education: [...] dications. 06/18/2016 Appointment: Nancy Tavares WPtel: [phone] [place] [phone] (15 min) Moderate 06/18/2016 Patient Education: Patient [...] acutely worsen. 04/29/2016 Appointment: Nancy Tavares WPtel: [address] [place], [place] [phone] (15 min) Moderate 04/29/2016 Patient Education: Patient Medication Summary Completed 04/29/2016 Care Plan: CHEST X-RAY 2VW FRONTAL&LATL LOINC : 33523-5 Pending 04/29/2016 Visit Plan: Sinusitis - Pt [...] allergy spray. 04/21/2016 Appointment: Lakeisha Putnam WPtel: [address] [place], [place] [phone] (15 min) Moderate 04/21/2016 Patient Education: Patient Medication Summary Completed 04/21/2016 Visit Plan: Hypertension - well con magenlled - continue with current medications, continue with [...] placard provided 02/20/2016 Appointment: Nancy Tavares WPtel: [phone] [phone] (30 min) Complex 02/20/2016 Patient Education: Patient [...] Appointment: Charlene Hoskins WPtel: [phone] [phone] (15 min) Moderate 01/01/2016 Patient Education: Patient [...] 11/13/2015 Appointment: Nancy Tavares WPtel: [phone] [phone] (15 min) Moderate 11/13/2015 Patient Education: [...] response to medications. DM-too early for Hgb [id number] to have done next week 11/07/2015 [facility]ment: [phone] ([facility] min) Moderate 11/07/2015 Patient [...] 08/07/2015 App[facility]ment: [phone] New Patient 08/07/2015 Patient Education: [...] response to medications. DM-too early for Hgb [id number] to have done next week . Hypertension [...] to medications. Generalized OA-handicap placard provided . Joint Injection - Pt was given [...] doing well-due for a new machine-will call [facility] to see what we need to do to get him a new machine. RETURN FOR FASTING L ABS . 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 Edema - [...] improved sleep, etc. Will fax note to [facility]. . Hypertension - con tinue with current [...]
--- OUTSIDE RECORDS SUMMARY | 2019-04-11 03:51 | XMS REPORT | CCD ---
Author Author Cesar Tavares Organization Charlene Hoskins MD, [facility] Address [address] [place] [address] Phone Care Team Providers Care Noodle Maker Name Role Phone PP Unavailable CCM Unavailable Summary Purpose Interface Exchange Insurance Providers Payer name Policy type / Coverage type Covered constitution party ID Effective Begin Date Effective End Date WPS Medicare Part B Medicare Part B [id number] Unknown [facility] Part B [id number] Un known Family history Brother Diagnosis Age [...] Retir ed 08/07/[address]: 5667688 Quit over 10 years ago 1970 08/07/[address]: 804354348 Never drinks alcohol 08/07/2015 Allergies, Adverse Reactions, [...] mc g-50 mcg/dose powder for inhalation RxNorm: 3238492 INHALE 1 DOSE BY MOUTH TWICE DAILY 12/19/2017 No Stop Date Active meloxicam 7.5 mg tablet RxNorm: 601307 TAKE 1 TABLET BY MOUTH ONCE DAILY 12/01/2017 No Stop Date Active simvastatin 20 mg ta blet RxNorm: 107589 TAKE 1 TABLET BY MOUT H ONCE DAILY 11/14/2017 No Stop Date Active losartan 50 mg tablet RxNorm: 389458 TAKE ONE TABLET BY MOUTH ONCE DAILY 10/27/2017 No Stop Date Active fluticasone 50 mcg/a ctuation nasal spray,suspension RxNorm: 0809904 USE TWO SPRAY(S) IN EACH NOSTRIL ONCE DAILY 10/19/2017 No Stop Date Active Advair Diskus 250 mc g-50 mcg/dose powder for inhalation RxNorm: 4619378 INHALE 1 DOSE BY MOUTH TWICE DAILY 10/19/2017 12/18/2017 Inactive Kenalog 40 mg/mL [employer] pension for injection RxNorm: 5271179 1 Milliliter(s) Inj 08/25/2017 08/25/2017 In active meloxicam 7.5 mg tablet RxNorm: 675700 TAKE ONE TABLET BY MOUTH ONCE DAILY 06/06/2017 11/30/2017 In active simvastatin 20 mg ta blet RxNorm: 735931 TAKE ONE TABLET BY MO UTH ONCE DAILY 05/17/2017 11/13/2017 In active metformin 500 mg tablet RxNorm: 949182 TAKE ONE TABLET BY MOUTH ONCE DAILY 05/05/2017 No Stop Date Active Advair Diskus 250 mc g-50 mcg/dose powder for inhalation RxNorm: 6195757 INHALE ONE DOSE BY MOUTH TWICE DAILY 04/19/2017 10/18/2017 Inactive Tamiflu 75 mg capsule RxNorm: 276955 1 Capsule(s) PO daily 03/25/2017 03/24/2017 Inactive Tamiflu 75 mg capsule RxNorm: 667594 1 Capsule(s) PO daily 03/25/2017 03/31/2017 Inactive montelukast 10 mg ta blet RxNorm: 294950 TAKE ONE TABLET BY MO UTH ONCE DAILY 03/21/2017 No Stop Date Active losartan 50 mg tablet RxNorm: 449793 TAKE ONE TABLET BY MOUTH ONCE DAILY 01/27/2017 10/26/2017 In active fluticasone 50 mcg/a ctuation nasal spray,suspension RxNorm: 7410548 USE TWO SPRAY(S) IN EACH NOSTRIL ONCE DAILY 01/17/2017 10/18/2017 Inactive meloxicam 7.5 mg tablet RxNorm: 170000 TAKE ONE TABLET BY MOUTH ONCE DAILY 12/06/2016 06/03/2017 In active metformin 500 mg tablet RxNorm: 570448 Tablet(s) TAKE ONE TABLET BY MOUTH TWICE DAILY 11/30/2016 11/24/2017 Inactive simvastatin 20 mg ta blet RxNorm: 896213 TAKE ONE TABLET BY MO [facility] ONCE DAILY 11/15/2016 05/13/2017 In active Advair Diskus 250 mc g-50 mcg/dose powder for inhalation RxNorm: 7904559 INHALE ONE PUFF BY MOUTH TWICE DAILY 10/22/2016 04/18/2017 [facility]: 568401 1 Application TOP TIW 10/04/2016 10/17/2016 Inactive fluticasone 50 mcg/a ctuation nasal spray,suspension RxNorm: 9616500 USE TWO SPRAY(S) IN EACH NOSTRIL ONCE DAILY 09/21/2016 11/19/2016 Inactive montelukast 10 mg ta blet RxNorm: 846708 TAKE ONE TABLET BY [facility] ONCE DAILY 09/21/2016 03/19/2017 In active losartan 50 mg tablet RxNorm: 591958 TAKE ONE TABLET BY MOUTH ONCE DAILY 08/02/2016 01/26/2017 In active metformin 500 mg tablet RxNorm: 554620 TAKE ONE TABLET BY MOUTH TWICE DAILY 07/22/2016 10/19/2016 In active furosemide 20 mg tablet RxNorm: 383691 1 Tablet(s) PO daily as needed for swell ing 07/21/2016 10/18/2016 Inactive meloxicam 7.5 mg tablet RxNorm: 984650 TAKE ONE TABLET BY MOUTH ONCE DAILY 06/08/2016 12/04/2016 In active cefdinir 300 mg capsule RxNorm: 087787 1 Capsule(s) PO BID 04/29/2016 05/05/2016 Inactive prednisone 20 mg tablet RxNorm: 827807 1 Tablet(s) PO BID 04/29/2016 05/03/2016 Inactive Zithromax Z-Sherif 250 mg tablet RxNorm: 473682 1 Tablet(s) PO UD 04/21/2016 04/28/2016 Inactive Kenalog 40 mg/mL maggie pension for injection RxNorm: 4691025 1 Milliliter(s) Inj 04/21/2016 04/21/2016 In active montelukast 10 mg ta blet RxNorm: 759495 TAKE ONE TABLET BY [facility] ONCE DAILY 03/22/2016 09/17/2016 In active fluticasone 50 mcg/a ctuation nasal spray,suspension RxNorm: 7191042 2 [place] NASAL daily each nare 03/15/2016 07/12/2016 Inactive qs metformin 500 mg tablet RxNorm: 301567 1 Tablet(s) PO daily 01/16/2016 2016 Inactive Patient does not need a refill- just upd ate dosing simvastatin 40 mg ta blet RxNorm: 654199 1 Tablet(s) PO daily 01/01/2016 No Stop Date Active Advair Diskus 250 mc g-50 mcg/dose powder for inhalation RxNorm: 0625716 1 INH BID 01/01/2016 04/29/2016 In active Advair Diskus 250 mc g-50 mcg/dose powder for inhalation RxNorm: 4173228 1 INH daily 01/01/2016 12/31/2015 Inactive metformin 500 mg tablet RxNorm: 688659 1 Tablet(s) PO daily 01/01/2016 01/15/2016 Inactive azithromycin 250 mg tablet RxNorm: 300705 1 Tablet(s) PO take t wo pills on day #1, then one pill daily x 4 more days 01/01/2016 02/17/2016 Inactive meloxicam 7.5 mg tablet RxNorm: 271481 1 Tablet(s) PO daily 12/11/2015 06/07/2016 Inactive simvastatin 20 mg ta blet RxNorm: 547935 1 Tablet(s) PO daily 11/21/2015 12/31/2015 Inactive metformin 500 mg tablet RxNorm: 399962 1 Tablet(s) PO BID 11/21/2015 12/31/2015 Inactive Advair Diskus 250 mc g-50 mcg/dose powder for inhalation RxNorm: 3894692 1 INH BID 11/21/2015 12/31/2015 In active montelukast 10 mg ta blet RxNorm: 527174 1 Tablet(s) PO daily 09/25/2015 03/21/2016 Inactive losartan 50 mg tablet RxNorm: 091012 1 Tablet(s) PO daily 09/04/2015 08/01/2016 Inactive Restasis 0.05 % eye drops in a dropperette RxNorm: 817397 1 gtts OPH BID 08/07/2015 No Stop Date Active meloxicam 7.5 mg tablet RxNorm: 728724 1 Tablet(s) PO daily 08/07/2015 09/05/2015 Inactive Kay oral RxNorm: 245212 oral No Start Date Active finasteride 5 mg tablet RxNorm: 597731 1 Tablet(s) PO daily No Start Date Active Zyrtec 10 mg tablet RxNorm: 6980221 1 Tablet(s) PO daily No Start Date Active Co Q-10 200 mg capsule RxNorm: 977097 1 Capsule(s) PO daily No Start Date Active Calcium 500 + D (D3) oral RxNorm: 965527 oral No S tart Date Active simethicone 125 mg c apsule RxNorm: 729313 Capsule(s) PO as needed No Start Date Active Vitamin D3 1,000 uni t tablet RxNorm: 046919 1 Tablet(s) PO daily No Start Date Active omega-3 fatty acids 1,000 mg capsule RxNorm: 4 Capsule(s) PO daily No Start Date Active triamcinolone aceton chasity 0.1 % topical cream RxNorm: 6352276 1 TOP UD No Start Date Active fluticasone 50 mcg/a ctuation nasal spray,suspension RxNorm: 5145622 2 [place] NASAL daily each nare No Start Date 03/14/2016 Inactive losartan 50 mg tablet RxNorm: 463836 1 Tablet(s) PO daily No Start Date 09/03/2015 Inactive metformin 500 mg tablet RxNorm: 007655 1 Tablet(s) PO daily No Start Date 11/20/2015 Inactive simvastatin 40 mg ta blet RxNorm: 785718 1 Tablet(s) PO daily No Start Date 11/20/2015 Inactive furosemide 20 mg tablet RxNorm: 745375 1 Tablet(s) PO daily as needed No Start Date 07/20/2016 Inactive Advair Diskus 250 mc g-50 mcg/dose powder for inhalation RxNorm: 3430511 1 INH daily No Start Date 11/20/2015 Inactive Multiple Vitamin oral RxNorm: 34800 oral No Start Date 12/31/2015 Inactive montelukast 10 mg ta blet RxNorm: 340540 1 Tablet(s) PO daily No Start Date 09/24/2015 Inactive Medication Administered Medication Codes Instruc tions Start Date Status Kenalog 40 mg/mL suspension for injection RxNorm: 3737823 1Milliliter 08/25/2017 N o longer Active Kenalog 40 mg/mL suspension for injection RxNorm: 0552672 1Milliliter 04/21/2016 N o longer Active Immunizations [...] Code Item Item Code Result Date %Hba1C Qnf946 % HbA1c 86969-3 6.0 % 12/21/2017 %Hba1C Dzm856 Gluc Ave 126 mg/dL 12/21/2017 %Hba1C Stz030 % HbA1c 86583-1 6.2 % 04/20/2017 %Hba1C Hzc811 Gluc Ave 131 mg/dL 04/20/2017 Cbc With [...] 27.7 % 04/20/2017 Cbc With Differential Ord2 [place]% 9.3 % 04/20/2017 Cbc With Differential Ord2 [...] 1.82 K/ul 04/20/2017 Cbc With Differential Ord2 [place] ABS# 0.6 K/ul 04/20/2017 Cbc With Differential Ord2 Eos ABS# 0.2 K/ul 04/20/2017 Cbc With Differential Ord2 Baso ABS# 0.0 K/ul 04/20/2017 Comp Metabolic Ztw859 NA 141 mEq/L 04/20/2017 Comp Metabolic Csr080 K 4.5 mEq/L 04/20/2017 Comp Metabolic Jkn355 CL 106 mEq/L 04/20/2017 Comp Metabolic Ydr447 CO2 27.0 mEq/L 04/20/2017 Comp Metabolic Jhk615 AN ION GAP 13 04/20/2017 Comp Metabolic Dkw946 GL UCOSE 109 mg/dL 04/20/2017 Comp Metabolic Vcj894 Cr eat 1.0 mg/dL 04/20/2017 Comp Metabolic Xdy494 eG FR 81 ml/min/1.73m2 04/20 Comp Metabolic Tim511 BUN 23 mg/dL 04/20/2017 Comp Metabolic Fyw569 B/ C Ratio 24.2 Ratio 04/20/2017 Comp Metabolic Sjc645 CA LCIUM 9.3 mg/dL 04/20/2017 Comp Metabolic Ueo050 AL K PHOS 82 U/L 04/20/2017 Comp Metabolic Puy211 T(SGOT) 22 U/L 04/20/2017 Comp Metabolic Jun521 AL T(SGPT) 24 U/L 04/20/2017 Comp Metabolic Zmx636 BI LI T 0.4 mg/dL 04/20/2017 Comp Metabolic Pkt084 AL BUMIN 4.3 g/dL 04/20/2017 Comp Metabolic Oyh595 TP RO 6.8 g/dL 04/20/2017 Comp Metabolic Fhw078 GL OB 2.5 g/dL 04/20/2017 Comp Metabolic Gwv320 A/ G Ratio 1.7 Ratio 04/20/2017 Comp Metabolic Dii728 Os mo 286 mOsmo 04/20/2017 %Hba1C Brz946 % HbA1c 34259-0 5.8 % 10/22/2016 %Hba1C Cey127 Gluc Ave 120 mg/dL 10/22/2016 Cbc With [...] 32.5 pg 10/22/2016 Cbc With Differential Ord2 [place]% 10.3 % 10/22/2016 Cbc With Differential Ord2 [...] 1.85 K/ul 10/22/2016 Cbc With Differential Ord2 [place] ABS# 0.8 K/ul 10/22/2016 Cbc With Differential Ord2 Eos ABS# 0.3 K/ul 10/22/2016 Cbc With Differential Ord2 Baso ABS# 0.0 K/ul 10/22/2016 Comp Metabolic Udw355 NA 141 mEq/L 10/22/2016 Comp Metabolic Qnb846 K 4.4 mEq/L 10/22/2016 Comp Metabolic Fcs410 CL 105 mEq/L 10/22/2016 Comp Metabolic Mmt530 CO2 27.0 mEq/L 10/22/2016 Comp Metabolic Zvd056 AN ION GAP 13 10/22/2016 Comp Metabolic Ezl103 GL UCOSE 103 mg/dL 10/22/2016 Comp Metabolic Ays026 Cr eat 1.0 mg/dL 10/22/2016 Comp Metabolic Lte199 eG FR 76 ml/min/1.73m2 10/22 Comp Metabolic Dei828 BUN 27 mg/dL 10/22/2016 Comp Metabolic Rkh209 B/ C Ratio 27.0 Ratio 10/22/2016 Comp Metabolic Tgr649 CA LCIUM 9.3 mg/dL 10/22/2016 Comp Metabolic Hzj058 AL K PHOS 72 U/L 10/22/2016 Comp Metabolic Gdc492 T(SGOT) 23 U/L 10/22/2016 Comp Metabolic Lvk349 AL T(SGPT) 26 U/L 10/22/2016 Comp Metabolic Iak658 BI LI T 0.4 mg/dL 10/22/2016 Comp Metabolic Ydk409 AL BUMIN 4.2 g/dL 10/22/2016 Comp Metabolic Sdf583 TP RO 6.7 g/dL 10/22/2016 Comp Metabolic Mal830 GL OB 2.5 g/dL 10/22/2016 Comp Metabolic Tvi852 A/ G Ratio 1.6 Ratio 10/22/2016 Comp Metabolic Uay366 Os mo 287 mOsmo 10/22/2016 Comp Metabolic Chf022 NA 143 mEq/L 06/17/2016 Comp Metabolic Rjy351 K 4.1 mEq/L 06/17/2016 Comp Metabolic Iim981 CL 108 mEq/L 06/17/2016 Comp Metabolic Vxa482 CO2 28.0 mEq/L 06/17/2016 Comp Metabolic Tlh769 AN ION GAP 11 06/17/2016 Comp Metabolic Vlz274 GL UCOSE 106 mg/dL 06/17/2016 Comp Metabolic Kjj706 Cr eat 0.9 mg/dL 06/17/2016 Comp Metabolic Kyx224 eG FR 92 ml/min/1.73m2 06/17 Comp Metabolic Ems221 BUN 22 mg/dL 06/17/2016 Comp Metabolic Rnp491 B/ C Ratio 25.9 Ratio 06/17/2016 Comp Metabolic Mog159 CA LCIUM 8.8 mg/dL 06/17/2016 Comp Metabolic Ydf782 AL K PHOS 55 U/L 06/17/2016 Comp Metabolic Lzu378 T(SGOT) 21 U/L 06/17/2016 Comp Metabolic Sff523 AL T(SGPT) 24 U/L 06/17/2016 Comp Metabolic Mni333 BI LI T 0.6 mg/dL 06/17/2016 Comp Metabolic Pyi763 AL BUMIN 4.0 g/dL 06/17/2016 Comp Metabolic Bmh038 TP RO 6.2 g/dL 06/17/2016 Comp Metabolic Mkq481 GL OB 2.2 g/dL 06/17/2016 Comp Metabolic Rdq948 A/ G Ratio 1.8 Ratio 06/17/2016 Comp Metabolic Cli662 Os mo 289 mOsmo 06/17/2016 Lipid Ord30 CHOL 163 mg/dL 06/17/2016 Lipid Ord30 HDL 54.0 mg/dl 06/17/2016 Lipid Ord30 TRIG 133 mg/dL 06/17/2016 Lipid Ord30 LDL 82 mg/dL 06/17/2016 Lipid Ord30 C/HDL 3.0 Ratio 06/17/2016 %Hba1C Qid605 % HbA1c 26325-9 6.0 % 06/17/2016 %Hba1C Zoh808 Gluc Ave 126 mg/dL 06/17/2016 Total Psa [...] 32.7 pg 06/17/2016 Cbc With Differential Ord2 [place]% 10.7 % 06/17/2016 Cbc With Differential Ord2 [...] 1.71 K/ul 06/17/2016 Cbc With Differential Ord2 [place] ABS# 0.6 K/ul 06/17/2016 Cbc With Differential Ord2 Eos ABS# 0.2 K/ul 06/17/2016 Cbc With Differential Ord2 Baso ABS# 0.0 K/ul 06/17/2016 Tsh Ord6 hTSH II 2.91 uIU/mL 06/17/2016 Tsh Ord6 hTSH II 2.45 uIU/mL 02/19/2016 %Hba1C Spw099 % HbA1c 34562-8 5.8 % 02/19/2016 %Hba1C Drt069 Gluc Ave 120 mg/dL 02/19/2016 Comp Metabolic Gjq814 NA 141 mEq/L 02/19/2016 Comp Metabolic Xms681 K 4.2 mEq/L 02/19/2016 Comp Metabolic Rqw256 CL 107 mEq/L 02/19/2016 Comp Metabolic Csu475 CO2 29.0 mEq/L 02/19/2016 Comp Metabolic Fjg099 AN ION GAP 9 02/19/2016 Comp Metabolic Iqf543 GL UCOSE 106 mg/dL 02/19/2016 Comp Metabolic Igi481 Cr eat 0.9 mg/dL 02/19/2016 Comp Metabolic Syo800 eG FR 90 ml/min/1.73m2 02/18 Comp Metabolic Bll498 BUN 24 mg/dL 02/19/2016 Comp Metabolic Ezq997 B/ C Ratio 27.6 Ratio 02/19/2016 Comp Metabolic Wzb893 CA LCIUM 9.1 mg/dL 02/19/2016 Comp Metabolic Yzj445 AL K PHOS 67 U/L 02/19/2016 Comp Metabolic Cgx391 T(SGOT) 25 U/L 02/19/2016 Comp Metabolic Pbx433 AL T(SGPT) 31 U/L 02/19/2016 Comp Metabolic Hpm513 BI LI T 0.6 mg/dL 02/19/2016 Comp Metabolic Rvz149 AL BUMIN 4.1 g/dL 02/19/2016 Comp Metabolic Hqd831 TP RO 6.5 g/dL 02/19/2016 Comp Metabolic Yfy669 GL OB 2.4 g/dL 02/19/2016 Comp Metabolic Eku602 A/ G Ratio 1.7 Ratio 02/19/2016 Comp Metabolic Nfa681 Os mo 286 mOsmo 02/19/2016 Cbc With [...] 31.7 pg 02/19/2016 Cbc With Differential Ord2 [place]% 10.5 % 02/19/2016 Cbc With Differential Ord2 [...] 1.59 K/ul 02/19/2016 Cbc With Differential Ord2 [place] ABS# 0.6 K/ul 02/19/2016 Cbc With Differential Ord2 Eos ABS# 0.3 K/ul 02/19/2016 Cbc With Differential Ord2 Baso ABS# 0.0 K/ul 02/19/2016 Lipid Ord30 CHOL 174 mg/dL 02/19/2016 Lipid Ord30 HDL 54.0 mg/dl 02/19/2016 Lipid Ord30 TRIG 110 mg/dL 02/19/2016 Lipid Ord30 LDL 98 mg/dL 02/19/2016 Lipid Ord30 C/HDL 3.2 Ratio 02/19/2016 %Hba1C Aqr090 % HbA1c 35944-1 6.0 % 11/11/2015 %Hba1C Arm702 Gluc Ave 126 mg/dL 11/11/2015 %Hba1C Aqa645 % HbA1c 83297-3 6.0 % 11/07/2015 %Hba1C Esy498 Gluc Ave 126 mg/dL 11/07/2015 Cbc With [...] 32.0 pg 11/06/2015 Cbc With Differential Ord2 [place]% 9.5 % 11/06/2015 Cbc With Differential Ord2 [...] 1.79 K/ul 11/06/2015 Cbc With Differential Ord2 [place] ABS# 0.6 K/ul 11/06/2015 Cbc With Differential Ord2 Eos ABS# 0.3 K/ul 11/06/2015 Cbc With Differential Ord2 Baso ABS# 0.0 K/ul 11/06/2015 Comp Metabolic Puc672 NA 141 mEq/L 11/06/2015 Comp Metabolic Fbz836 K 4.3 mEq/L 11/06/2015 Comp Metabolic Lcu313 CL 107 mEq/L 11/06/2015 Comp Metabolic Hkj948 CO2 28.0 mEq/L 11/06/2015 Comp Metabolic Gkz298 AN ION GAP 10 11/06/2015 Comp Metabolic Cpm141 GL UCOSE 117 mg/dL 11/06/2015 Comp Metabolic Xyl474 Cr eat 0.9 mg/dL 11/06/2015 Comp Metabolic Jnu970 eG FR 88 ml/min/1.73m2 11/05 Comp Metabolic Aco775 BUN 22 mg/dL 11/06/2015 Comp Metabolic Gtf632 B/ C Ratio 25.0 Ratio 11/06/2015 Comp Metabolic Itp783 CA LCIUM 9.1 mg/dL 11/06/2015 Comp Metabolic Mwl722 AL K PHOS 59 U/L 11/06/2015 Comp Metabolic Vvk262 T(SGOT) 23 U/L 11/06/2015 Comp Metabolic Bmm371 AL T(SGPT) 26 U/L 11/06/2015 Comp Metabolic Xhi241 BI LI T 0.6 mg/dL 11/06/2015 Comp Metabolic Gmg224 AL BUMIN 4.0 g/dL 11/06/2015 Comp Metabolic Aep671 TP RO 6.4 g/dL 11/06/2015 Comp Metabolic Wqs673 GL OB 2.4 g/dL 11/06/2015 Comp Metabolic Jzk967 A/ G Ratio 1.7 Ratio 11/06/2015 Comp Metabolic Rym080 Os mo 286 mOsmo 11/06/2015 Tsh Ord6 hTSH II 2.59 uIU/mL 11/06/2015 Lipid Ord30 CHOL 159 mg/dL 11/06/2015 Lipid Ord30 HDL 42.0 mg/dl 11/06/2015 Lipid Ord30 TRIG 129 mg/dL 11/06/2015 Lipid Ord30 LDL 91 mg/dL 11/06/2015 Lipid Ord30 C/HDL 3.8 Ratio 11/06/2015 Comp Metabolic Ale280 NA 140 mEq/L 08/08/2015 Comp Metabolic Ibr948 K 4.0 mEq/L 08/08/2015 Comp Metabolic Phu826 CL 108 mEq/L 08/08/2015 Comp Metabolic Ofw713 CO2 25.0 mEq/L 08/08/2015 Comp Metabolic Huv676 AN ION GAP 11 08/08/2015 Comp Metabolic Cnl725 GL UCOSE 100 mg/dL 08/08/2015 Comp Metabolic Pev117 Cr eat 0.9 mg/dL 08/08/2015 Comp Metabolic Zsw732 eG FR 82 ml/min/1.73m2 08/07 Comp Metabolic Evd482 BUN 19 mg/dL 08/08/2015 Comp Metabolic Rfj520 B/ C Ratio 20.2 Ratio 08/08/2015 Comp Metabolic Dfc753 CA LCIUM 8.5 mg/dL 08/08/2015 Comp Metabolic Aui919 AL K PHOS 56 U/L 08/08/2015 Comp Metabolic Qiz626 T(SGOT) 18 U/L 08/08/2015 Comp Metabolic Yaz398 AL T(SGPT) 17 U/L 08/08/2015 Comp Metabolic Nhv784 BI LI T 0.7 mg/dL 08/08/2015 Comp Metabolic Fou814 AL BUMIN 3.9 g/dL 08/08/2015 Comp Metabolic Yxw383 TP RO 6.2 g/dL 08/08/2015 Comp Metabolic Jkb963 GL OB 2.3 g/dL 08/08/2015 Comp Metabolic Gih928 A/ G Ratio 1.7 Ratio 08/08/2015 Comp Metabolic Voz345 Os mo 282 mOsmo 08/08/2015 Tsh Ord6 hTSH II 3.19 uIU/mL 08/08/2015 %Hba1C Lrm963 % HbA1c 31576-2 5.7 % 08/08/2015 %Hba1C Xcq837 Gluc Ave 117 mg/dL 08/08/2015 Cbc With [...] 29.4 % 08/08/2015 Cbc With Differential Ord2 [place]% 10.9 % 08/08/2015 Cbc With Differential Ord2 [...] 1.51 K/ul 08/08/2015 Cbc With Differential Ord2 [place] ABS# 0.6 K/ul 08/08/2015 Cbc With Differential [...] Procedure Codes Date DRAIN/INJECT JOINT/B URSA CPT-4: 15436 08/25/2017 PPPS, SUBSEQ VISIT CPT- 4: G0439 05/30/2017 ADMIN INFLUENZA VIRU S VAC CPT-4: G0008 12/21/2016 FLU VACC PRSV FREE I NC ANTIG CPT-4: 20433 12/21/2016 PPPS, SUBSEQ VISIT CPT- 4: G0439 05/21/2016 TRIAMCINOLONE ACET I [place] NOS CPT-4: J3301 04/21/2016 THER/PROPH/DIAG INJ SC/IM CPT-4: 04838 04/21/2016 DRAIN/INJECT JOINT/B URSA CPT-4: 12136 11/13/2015 PNEUMOCOCCAL VACC [address]: 08573766 CPT-4: 76824 11/13/2015 ADMIN PNEUMOCOCCAL V ACCINE SNOMED CT: 69372045 CPT-4: G0009 11/13/2015 ADMIN INFLUENZA VIRU S VAC CPT-4: G0008 11/11/2015 FLU VACC 4 AZUL 3 YRS PLUS IM SNOMED CT: 85857571 CPT-4: 77646 11/11/2015 Vital Signs Date Vital 12/21/2017 Blood Pressure 1: 132/56 Code: 8480-6 BMI: 25.7 Code: 02442-8 Heart Rate 1: 58 bpm Height: 5'7" SpO2: 93% Weight: 164 lbs 08/25/2017 Blood Pressure 1: 126/74 Code: 8480-6 BMI: 26.2 Code: 68393-7 Heart Rate 1: 70 bpm Height: 5'7" SpO2: 94% Weight: 167 lbs 05/30/2017 Blood Pressure 1: 120/66 Code: 8480-6 BMI: 26.6 Code: 95691-3 Heart Rate 1: 66 bpm Height: 5'7" SpO2: 95% Waist Measure (cm): 97 cm Weight: 170 lbs 04/20/2017 Blood Pressure 1: 138/78 Code: 8480-6 BMI: 26.6 Code: 13436-4 Heart Rate 1: 86 bpm Height: 5'7" SpO2: 96% Weight: 170 lbs 01/21/2017 Blood Pressure 1: 136/70 Code: 8480-6 BMI: 26.3 Code: 39450-0 Heart Rate 1: 79 bpm Height: 5'7" SpO2: 95% Weight: 168 lbs 10/22/2016 Blood Pressure 1: 134/72 Code: 8480-6 BMI: 26.3 Code: 80942-6 Heart Rate 1: 70 bpm Height: 5'7" SpO2: 95% Weight: 168 lbs 10/04/2016 Blood Pressure 1: 142/80 Code: 8480-6 BMI: 26.6 Code: 07264-6 Heart Rate 1: 72 bpm Height: 5'7" SpO2: 93% Weight: 170 lbs 06/18/2016 Blood Pressure 1: 132/76 Code: 8480-6 BMI: 26.2 Code: 41086-2 Heart Rate 1: 65 bpm Height: 5'7" SpO2: 95% Weight: 167 lbs 8 oz 05/21/2016 Blood Pressure 1: 126/76 Code: 8480-6 BMI: 26.0 Code: 65388-3 Heart Rate 1: 72 bpm Height: 5'7" SpO2: 98% Weight: 166 lbs 04/29/2016 Blood Pressure 1: 128/70 Code: 8480-6 BMI: 25.7 Code: 76500-0 Heart Rate 1: 67 bpm Height: 5'7" SpO2: 97% Temperature: 36.3 (C ) / 97.4 (F) Weight: 164 lbs 04/21/2016 Blood Pressure 1: 130/62 Code: 8480-6 BMI: 26.3 Code: 34574-2 Heart Rate 1: 74 bpm Height: 5'7" SpO2: 96% Temperature: 37.0 (C ) / 98.6 (F) Weight: 168 lbs 02/20/2016 Blood Pressure 1: 120/64 Code: 8480-6 BMI: 26.2 Code: 97055-3 Heart Rate 1: 65 bpm Height: 5'7" SpO2: 94% Weight: 167 lbs 01/01/2016 Blood Pressure 1: 106/60 Code: 8480-6 BMI: 25.7 Code: 73131-2 Heart Rate 1: 73 bpm Height: 5'7" SpO2: 98% Weight: 164 lbs 11/13/2015 Blood Pressure 1: 122/86 Code: 8480-6 BMI: 25.8 Code: 04969-5 Heart Rate 1: 80 bpm Height: 5'7" SpO2: 92% Weight: 165 lbs 11/07/2015 Blood Pressure 1: 118/64 Code: 8480-6 BMI: 25.8 Code: 27983-5 Heart Rate 1: 66 bpm Height: 5'7" SpO2: 95% Weight: 165 lbs 08/07/2015 Blood Pressure 1: 122/80 Code: 8480-6 BMI: 24.4 Code: 53364-7 Heart Rate 1: 74 bpm Height: 5'7" [...] Encounters Encounter Performer Loca tion Codes Date 16103 EST. PATIENT, LEVEL IV Diagnosis: Type 2 diabetes mellitus without complications[ICD10: E11.9] Diagnosis: Essential (primary) hypertension[ICD10: I10] Diagnosis: Pain in right knee[ICD10: M25.561] Lakeisha Hoskins MD, [facility] CPT-4: 71388 12/21/2017 07987 EST. PATIENT, LEVEL IV Diagnosis: Type 2 diabetes mellitus without complications[ICD10: E11.9] Diagnosis: Essential (primary) hypertension[ICD10: I10] Diagnosis: Pain in right knee[ICD10: M25.561] Lakeisha Hoskins MD, [facility] CPT-4: 00314 08/25/2017 [id number] EST. PATIENT, LEVEL IV Diagnosis: Type 2 diabetes mellitus without complications[ICD10: E11.9] Diagnosis: Essential (primary) hypertension[ICD10: I10] Lakeisha Hoskins MD, [facility] CPT-4: 00978 04/20/2017 ([id number]) 75858 EST. P ATIENT, LEVEL III Diagnosis: Essential (primary) hypertension[ICD10: I10] Diagnosis: Obstructive sleep apnea (adult) (pediatric)[ICD10: G47.33] Nancy Hoskins MD, [facility] CPT-4: 01159 01/21/2017 ([id number]) 71566 EST. P ATIENT, LEVEL IV Diagnosis: Essential (primary) hypertension[ICD10: I10] Diagnosis: Type 2 diabetes mellitus without complications[ICD10: E11.9] Diagnosis: Obstructive sleep apnea (adult) (pediatric)[ICD10: G47.33] Nancy Hoskins MD, [facility] CPT-4: 82508 10/22/2016 ([id number]) 18572 EST. P ATIENT, LEVEL III Diagnosis: Localized edema[ICD10: R60.0] Diagnosis: Rash and other nonspecific skin eruption[ICD10: R21] Nancy Hoskins MD, [facility] CPT-4: 27627 10/04/2016 ([id number]) 26020 EST. P ATIENT, LEVEL IV Diagnosis: Essential (primary) hypertension[ICD10: I10] Diagnosis: Type 2 diabetes mellitus without complications[ICD10: E11.9] Diagnosis: Mixed hyperlipidemia[ICD10: E78.2] Nancy Hoskins MD, [facility] CPT-4: 83276 06/18/2016 ([id number]) 38513 EST. P ATIENT, LEVEL III Diagnosis: Cough[ICD10: R05] Diagnosis: Acute bronchitis, unspecified[ICD10: J20.9] Nancy Hoskins MD, [facility] CPT-4: 72242 04/29/2016 [id number] EST. PATIENT, LEVEL IV Diagnosis: Other acute sinusitis[ICD10: J01.80] Diagnosis: Other allergic rhinitis[ICD10: J30.89] Lakeisha Hoskins MD, [facility] CPT-4: 63845 04/21/2016 ([id number]) 06916 EST. P ATIENT, LEVEL IV Diagnosis: Essential (primary) hypertension[ICD10: I10] Diagnosis: Type 2 diabetes mellitus without complications[ICD10: E11.9] Diagnosis: Mixed hyperlipidemia[ICD10: E78.2] Diagnosis: Primary generalized (osteo)arthritis[ICD10: M15.0] Nancy Hoskins MD, [facility] CPT-4: 44169 02/20/2016 ([id number]) 20168 EST. P ATIENT, LEVEL IV Diagnosis: Cough[ICD10: R05] Diagnosis: Acute bronchitis due to Hemophilus influenzae[ICD10: J20.1] Diagnosis: Type 2 diabetes mellitus without complications[ICD10: E11.9] Diagnosis: Essential (primary) hypertension[ICD10: I10] Charlene Hoskins MD, [facility] CPT-4: 55494 01/01/2016 ([id number]) 39818 EST. P ATIENT, LEVEL IV Diagnosis: Essential (primary) hypertension[ICD10: I10] Diagnosis: Mixed hyperlipidemia[ICD10: E78.2] Diagnosis: Type 2 diabetes mellitus without complications[ICD10: E11.9] Nancy Hoskins MD, [facility] CPT-4: 86115 11/07/2015 OFFICE VISIT, NEW - LEVEL 4 Diagnosis: Type 2 diabetes mellitus without complications[ICD10: E11.9] Diagnosis: Essential (primary) hypertension[ICD10: I10] Diagnosis: Mixed hyperlipidemia[ICD10: E78.2] Diagnosis: Elevated prostate specific antigen [PSA][ICD10: R97.2] [facility] CPT-4: 02608 08/07/2015 Plan of Care Planned Activity Notes [...] does not improve. 12/21/2017 Appointment: Lakeisha Putnaml: [address] [place], [place] [phone] (15 min) Moderate 12/21/2017 Patient Education: Patient [...] site of injection. 08/25/2017 Appointment: Lakeisha Putnam: [phone] [id number] (15 min) Moderate 08/25/2017 Patient [...] Summary Completed 05/30/2017 Appointment: Lakeisha Putnam WPtel: [facility] [address] [facility] [facility] - Annual Wellness Visit 05/27/2017 Appointment: Nancy Tavares WPtel: [phone] [phone] (30 min) Complex 04/22/2017 Visit [...] controlled. 04/20/2017 Appointment: Lakeisha Putnam WPtel: [phone] [facility] (30 min) Complex 04/20/2017 Patient Education: [...] improved sleep, etc. [facility]. 01/21/2017 Appointment: Nancy Tavares WPtel: [phone] [phone] (30 min) Complex 01/21/2017 Appointment: Nancy Tavares WPtel: [facility]5 [phone] (30 min) Complex 01/21/2017 Patient [...] doing well-due for a new machine-will call [facility] to see what we need to do to get him a new machine. 10/22/2016 Appointment: Nancy Tavares WPtel: [facility]4 [phone] (30 min) Complex 10/22/2016 Patient [...] plan. 10/04/2016 Appointment: Nancy Tavares WPtel: [phone] (15 min) Moderate 10/04/2016 Patient Education: [...] dications. 06/18/2016 Appointment: Nancy Tavares WPtel: [phone] [place] [phone] (15 min) Moderate 06/18/2016 Patient Education: Patient [...] acutely worsen. 04/29/2016 Appointment: Nancy Tavares WPtel: [address] [place], [place] [phone] (15 min) Moderate 04/29/2016 Patient Education: Patient Medication Summary Completed 04/29/2016 Care Plan: CHEST X-RAY 2VW FRONTAL&LATL LOINC : 96600-2 Pending 04/29/2016 Visit Plan: Sinusitis - Pt [...] allergy spray. 04/21/2016 Appointment: Lakeisha Putnam WPtel: [address] [place], [place] [id number] (15 min) Moderate 04/21/2016 Patient Education: Patient [...] provided 02/20/2016 Appointment: Nancy Tavares WPtel: [phone] [phone] (30 min) Complex 02/20/2016 Patient Education: [...] controlled. 01/01/2016 Appointment: Charlene Hoskins WPtel: [phone] [facility] (15 min) Moderate 01/01/2016 Patient Education: [...] injection. 11/13/2015 Appointment: Nancy Tavares WPtel: [phone] [phone] (15 min) Moderate 11/13/2015 Patient [...] response to medications. DM-too early for Hgb [id number] to have done next week 11/07/2015 [facility]ment: [phone] ([facility] min) Moderate 11/07/2015 Patient Education: [...] results 08/07/2015 Appointment: [facility]el[phone] New Patient 08/07/2015 Patient [...] in the nasal steroid allergy spray. . Bronchitis - acute case of bronchitis [...] doing well-due for a new machine-will [facility] to see what we need to do to get him a new machine. . Sinusitis - Pt has acute infection [...] in the nasal steroid allergy spray. . Joint Injection - Pt was given [...] for health care surrogate. . Hypertension - con tinue with current [...] response to medications. DM-too early for Hgb [id number] to have done next week COMPRESSION STOCKING S KETOCONAZOLE SHAMPOO THREE TIMES WEEKLY CONTINUE STEROID CREAM ORDERED BY STORE PROMOTER CULTURE RASH LEFT AXILLA . Edema - [...] improved sleep, etc. Will fax [facility].
--- OUTSIDE RECORDS SUMMARY | 2019-04-11 03:52 | XMS REPORT | CCD ---
Author Author Cesar Tavares Organization Charlene Hoskins MD, 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 Name Role Phone PP Unavailable CCM Unavailable Summary Purpose Interface Exchange Insurance Providers Payer name Policy type / Coverage type Covered republican ID Effective Begin Date Effective End Date WPS Medicare Part B Medicare Part B [id number] Unknown [facility] Part B [id number] Un known Family history Brother Diagnosis Age [...] Retir ed 08/07/[address]: 4890934 Quit over 10 years ago 1970 08/07/[address]: 620825135 Never drinks alcohol 08/07/2015 Allergies, Adverse Reactions, [...] mc g-50 mcg/dose powder for inhalation RxNorm: 1172707 INHALE 1 DOSE BY MOUTH TWICE DAILY 12/19/2017 No Stop Date Active meloxicam 7.5 mg tablet RxNorm: 350161 TAKE 1 TABLET BY MOUTH ONCE DAILY 12/01/2017 No Stop Date Active simvastatin 20 mg ta blet RxNorm: 544152 TAKE 1 TABLET BY MOUT H ONCE DAILY 11/14/2017 No Stop Date Active losartan 50 mg tablet RxNorm: 279847 TAKE ONE TABLET BY MOUTH ONCE DAILY 10/27/2017 No Stop Date Active fluticasone 50 mcg/a ctuation nasal spray,suspension RxNorm: 1604382 USE TWO SPRAY(S) IN EACH NOSTRIL ONCE DAILY 10/19/2017 No Stop Date Active Advair Diskus 250 mc g-50 mcg/dose powder for inhalation RxNorm: 3673236 INHALE 1 DOSE BY MOUTH TWICE DAILY 10/19/2017 12/18/2017 Inactive Kenalog 40 mg/mL maggie pension for injection RxNorm: 0894447 1 Milliliter(s) Inj 08/25/2017 08/25/2017 In active meloxicam 7.5 mg tablet RxNorm: 119335 TAKE ONE TABLET BY MOUTH ONCE DAILY 06/06/2017 11/30/2017 In active simvastatin 20 mg ta blet RxNorm: 087654 TAKE ONE TABLET BY MO UTH ONCE DAILY 05/17/2017 11/13/2017 In active metformin 500 mg tablet RxNorm: 154810 TAKE ONE TABLET BY MOUTH ONCE DAILY 05/05/2017 No Stop Date Active Advair Diskus 250 mc g-50 mcg/dose powder for inhalation RxNorm: 2206322 INHALE ONE DOSE BY MOUTH TWICE DAILY 04/19/2017 10/18/2017 Inactive Tamiflu 75 mg capsule RxNorm: 282729 1 Capsule(s) PO daily 03/25/2017 03/24/2017 Inactive Tamiflu 75 mg capsule RxNorm: 560912 1 Capsule(s) PO daily 03/25/2017 03/31/2017 Inactive montelukast 10 mg ta blet RxNorm: 891737 TAKE ONE TABLET BY MO UTH ONCE DAILY 03/21/2017 No Stop Date Active losartan 50 mg tablet RxNorm: 589808 TAKE ONE TABLET BY MOUTH ONCE DAILY 01/27/2017 10/26/2017 In active fluticasone 50 mcg/a ctuation nasal spray,suspension RxNorm: 5868987 USE TWO SPRAY(S) IN EACH NOSTRIL ONCE DAILY 01/17/2017 10/18/2017 Inactive meloxicam 7.5 mg tablet RxNorm: 182937 TAKE ONE TABLET BY MOUTH ONCE DAILY 12/06/2016 06/03/2017 In active metformin 500 mg tablet RxNorm: 908166 Tablet(s) TAKE ONE TABLET BY MOUTH TWICE DAILY 11/30/2016 11/24/2017 Inactive simvastatin 20 mg ta blet RxNorm: 577984 TAKE ONE TABLET BY MO [facility] ONCE DAILY 11/15/2016 05/13/2017 In active Advair Diskus 250 mc g-50 mcg/dose powder for inhalation RxNorm: 3295046 INHALE ONE PUFF BY MOUTH TWICE DAILY 10/22/2016 04/18/2017 Inactive [facility] Rx[facility]: 998720 1 Application TOP TIW 10/04/2016 10/17/2016 Inactive fluticasone 50 mcg/a ctuation nasal spray,suspension RxNorm: 6848483 USE TWO SPRAY(S) IN EACH NOSTRIL ONCE DAILY 09/21/2016 11/19/2016 Inactive montelukast 10 mg ta blet RxNorm: 280836 TAKE ONE TABLET BY [facility] ONCE DAILY 09/21/2016 03/19/2017 In active losartan 50 mg tablet RxNorm: 261038 TAKE ONE TABLET BY MOUTH ONCE DAILY 08/02/2016 01/26/2017 In active metformin 500 mg tablet RxNorm: 663675 TAKE ONE TABLET BY MOUTH TWICE DAILY 07/22/2016 10/19/2016 In active furosemide 20 mg tablet RxNorm: 916014 1 Tablet(s) PO daily as needed for swell ing 07/21/2016 10/18/2016 Inactive meloxicam 7.5 mg tablet RxNorm: 458352 TAKE ONE TABLET BY MOUTH ONCE DAILY 06/08/2016 12/04/2016 In active cefdinir 300 mg capsule RxNorm: 014721 1 Capsule(s) PO BID 04/29/2016 05/05/2016 Inactive prednisone 20 mg tablet RxNorm: 725400 1 Tablet(s) PO BID 04/29/2016 05/03/2016 Inactive Zithromax Z-Sherif 250 mg tablet RxNorm: 729966 1 Tablet(s) PO UD 04/21/2016 04/28/2016 Inactive Kenalog 40 mg/mL maggie pension for injection RxNorm: 7969796 1 Milliliter(s) Inj 04/21/2016 04/21/2016 In active montelukast 10 mg ta blet RxNorm: 761301 TAKE ONE TABLET BY [facility] ONCE DAILY 03/22/2016 09/17/2016 In active fluticasone 50 mcg/a ctuation nasal spray,suspension RxNorm: 4581976 2 Hiram NASAL daily each nare 03/15/2016 07/12/2016 Inactive qs metformin 500 mg tablet RxNorm: 781725 1 Tablet(s) PO daily 01/16/2016 2016 Inactive Patient does not need a refill- just upd ate dosing simvastatin 40 mg ta blet RxNorm: 279971 1 Tablet(s) PO daily 01/01/2016 No Stop Date Active Advair Diskus 250 mc g-50 mcg/dose powder for inhalation RxNorm: 2680514 1 INH BID 01/01/2016 04/29/2016 In active Advair Diskus 250 mc g-50 mcg/dose powder for inhalation RxNorm: 1349066 1 INH daily 01/01/2016 12/31/2015 Inactive metformin 500 mg tablet RxNorm: 111861 1 Tablet(s) PO daily 01/01/2016 01/15/2016 Inactive azithromycin 250 mg tablet RxNorm: 827889 1 Tablet(s) PO take t wo pills on day #1, then one pill daily x 4 more days 01/01/2016 02/17/2016 Inactive meloxicam 7.5 mg tablet RxNorm: 492789 1 Tablet(s) PO daily 12/11/2015 06/07/2016 Inactive simvastatin 20 mg ta blet RxNorm: 871995 1 Tablet(s) PO daily 11/21/2015 12/31/2015 Inactive metformin 500 mg tablet RxNorm: 759881 1 Tablet(s) PO BID 11/21/2015 12/31/2015 Inactive Advair Diskus 250 mc g-50 mcg/dose powder for inhalation RxNorm: 5899427 1 INH BID 11/21/2015 12/31/2015 In active montelukast 10 mg ta blet RxNorm: 276135 1 Tablet(s) PO daily 09/25/2015 03/21/2016 Inactive losartan 50 mg tablet RxNorm: 858450 1 Tablet(s) PO daily 09/04/2015 08/01/2016 Inactive Restasis 0.05 % eye drops in a dropperette RxNorm: 500848 1 gtts OPH BID 08/07/2015 No Stop Date Active meloxicam 7.5 mg tablet RxNorm: 395898 1 Tablet(s) PO daily 08/07/2015 09/05/2015 Inactive Kay oral RxNorm: 911809 oral No Start Date Active finasteride 5 mg tablet RxNorm: 159471 1 Tablet(s) PO daily No Start Date Active Zyrtec 10 mg tablet RxNorm: 4201005 1 Tablet(s) PO daily No Start Date Active Co Q-10 200 mg capsule RxNorm: 887631 1 Capsule(s) PO daily No Start Date Active Calcium 500 + D (D3) oral RxNorm: 830276 oral No S tart Date Active simethicone 125 mg c apsule RxNorm: 741174 Capsule(s) PO as needed No Start Date Active Vitamin D3 1,000 uni t tablet RxNorm: 810660 1 Tablet(s) PO daily No Start Date Active omega-3 fatty acids 1,000 mg capsule RxNorm: 4 Capsule(s) PO daily No Start Date Active triamcinolone aceton chasity 0.1 % topical cream RxNorm: 2503710 1 TOP UD No Start Date Active fluticasone 50 mcg/a ctuation nasal spray,suspension RxNorm: 8802725 2 Hiram NASAL daily each nare No Start Date 03/14/2016 Inactive losartan 50 mg tablet RxNorm: 323090 1 Tablet(s) PO daily No Start Date 09/03/2015 Inactive metformin 500 mg tablet RxNorm: 584466 1 Tablet(s) PO daily No Start Date 11/20/2015 Inactive simvastatin 40 mg ta blet RxNorm: 419245 1 Tablet(s) PO daily No Start Date 11/20/2015 Inactive furosemide 20 mg tablet RxNorm: 073043 1 Tablet(s) PO daily as needed No Start Date 07/20/2016 Inactive Advair Diskus 250 mc g-50 mcg/dose powder for inhalation RxNorm: 9618900 1 INH daily No Start Date 11/20/2015 Inactive Multiple Vitamin oral RxNorm: 36894 oral No Start Date 12/31/2015 Inactive montelukast 10 mg ta blet RxNorm: 403237 1 Tablet(s) PO daily No Start Date 09/24/2015 Inactive Medication Administered Medication Codes Instruc tions Start Date Status Kenalog 40 mg/mL suspension for injection RxNorm: 3177830 1Milliliter 08/25/2017 N o longer Active Kenalog 40 mg/mL suspension for injection RxNorm: 5459613 1Milliliter 04/21/2016 N o longer Active Immunizations Vaccine Codes Date Status Influenza CVX: 141 12/21 completed Pneumococcal (Adult) CVX: 133 11/13/2015 completed Influenza CVX: 141 11/10 completed Pneumococcal CVX: 33 completed Zoster CVX: 121 02/14/20 13 completed Assessments Condition Codes Effectiv e Dates Type 2 diabetes mellitus without complications ICD-10: E11.9 ICD-9: 250.00 08/25/2017 Pain in right knee ICD-10: M25.561 ICD-9: 719.46 08/25/2017 Essential (primary) hypertension ICD -10: I10 ICD-9: 401.1 08/25/2017 Encounter for general adult medical exam ination [...] For Visit Effective Dates Notes knee pain 08/25/2017 Annual Medicare Wellness Exam 05/30/2017 hypertension 04/20/2017 hypertension 01/21/2017 vaccination against influenza 12/21/2016 edema 10/22/2016 rash 10/04/2016 hypertension 06/18/2016 Annual Medicare Wellness Exam 05/21/2016 sinus congestion 04/29/2016 sinus congestion 04/21/2016 hypertension 02/20/2016 cough 01/01/2016 knee pain 11/13/2015 vaccination against influenza 11/11/2015 hypertension 11/07/2015 hypertension 08/07/2015 Results Observation Observation Code Item Item Code Result Date %Hba1C Bxw983 % HbA1c 41574-3 6.0 % 12/21/2017 %Hba1C Nfc410 Gluc Ave 126 mg/dL 12/21/2017 %Hba1C Knp373 % HbA1c 30465-1 6.2 % 04/20/2017 %Hba1C Kvg297 Gluc Ave 131 mg/dL 04/20/2017 Cbc With [...] 27.7 % 04/20/2017 Cbc With Differential Ord2 [place]% 9.3 % 04/20/2017 Cbc With Differential Ord2 [...] 1.82 K/ul 04/20/2017 Cbc With Differential Ord2 [place] ABS# 0.6 K/ul 04/20/2017 Cbc With Differential Ord2 Eos ABS# 0.2 K/ul 04/20/2017 Cbc With Differential Ord2 Baso ABS# 0.0 K/ul 04/20/2017 Comp Metabolic Evz400 NA 141 mEq/L 04/20/2017 Comp Metabolic Ery272 K 4.5 mEq/L 04/20/2017 Comp Metabolic Kbh278 CL 106 mEq/L 04/20/2017 Comp Metabolic Jbk275 CO2 27.0 mEq/L 04/20/2017 Comp Metabolic Brs797 AN ION GAP 13 04/20/2017 Comp Metabolic Oaa872 GL UCOSE 109 mg/dL 04/20/2017 Comp Metabolic Jle631 Cr eat 1.0 mg/dL 04/20/2017 Comp Metabolic Yle149 eG FR 81 ml/min/1.73m2 04/20 Comp Metabolic Irb218 BUN 23 mg/dL 04/20/2017 Comp Metabolic Hng624 B/ C Ratio 24.2 Ratio 04/20/2017 Comp Metabolic Osh840 CA LCIUM 9.3 mg/dL 04/20/2017 Comp Metabolic Ebb364 AL K PHOS 82 U/L 04/20/2017 Comp Metabolic Rfh710 T(SGOT) 22 U/L 04/20/2017 Comp Metabolic Hxe917 AL T(SGPT) 24 U/L 04/20/2017 Comp Metabolic Ths874 BI LI T 0.4 mg/dL 04/20/2017 Comp Metabolic Kvw192 AL BUMIN 4.3 g/dL 04/20/2017 Comp Metabolic Asc383 TP RO 6.8 g/dL 04/20/2017 Comp Metabolic Uih974 GL OB 2.5 g/dL 04/20/2017 Comp Metabolic Xim030 A/ G Ratio 1.7 Ratio 04/20/2017 Comp Metabolic Gvy991 Os mo 286 mOsmo 04/20/2017 %Hba1C Pjz814 % HbA1c 32058-7 5.8 % 10/22/2016 %Hba1C Mzl978 Gluc Ave 120 mg/dL 10/22/2016 Cbc With [...] 32.5 pg 10/22/2016 Cbc With Differential Ord2 [place]% 10.3 % 10/22/2016 Cbc With Differential Ord2 [...] 1.85 K/ul 10/22/2016 Cbc With Differential Ord2 [place] ABS# 0.8 K/ul 10/22/2016 Cbc With Differential Ord2 Eos ABS# 0.3 K/ul 10/22/2016 Cbc With Differential Ord2 Baso ABS# 0.0 K/ul 10/22/2016 Comp Metabolic Lde931 NA 141 mEq/L 10/22/2016 Comp Metabolic Sfw352 K 4.4 mEq/L 10/22/2016 Comp Metabolic Twd236 CL 105 mEq/L 10/22/2016 Comp Metabolic Jiu891 CO2 27.0 mEq/L 10/22/2016 Comp Metabolic Mhl352 AN ION GAP 13 10/22/2016 Comp Metabolic Dpw523 GL UCOSE 103 mg/dL 10/22/2016 Comp Metabolic Kna233 Cr eat 1.0 mg/dL 10/22/2016 Comp Metabolic Rot883 eG FR 76 ml/min/1.73m2 10/22 Comp Metabolic Kdh975 BUN 27 mg/dL 10/22/2016 Comp Metabolic Amc701 B/ C Ratio 27.0 Ratio 10/22/2016 Comp Metabolic Rds437 CA LCIUM 9.3 mg/dL 10/22/2016 Comp Metabolic Rqm327 AL K PHOS 72 U/L 10/22/2016 Comp Metabolic Pup232 T(SGOT) 23 U/L 10/22/2016 Comp Metabolic Ewt064 AL T(SGPT) 26 U/L 10/22/2016 Comp Metabolic Xan263 BI LI T 0.4 mg/dL 10/22/2016 Comp Metabolic Ika276 AL BUMIN 4.2 g/dL 10/22/2016 Comp Metabolic Kso148 TP RO 6.7 g/dL 10/22/2016 Comp Metabolic Mmu166 GL OB 2.5 g/dL 10/22/2016 Comp Metabolic Ssg560 A/ G Ratio 1.6 Ratio 10/22/2016 Comp Metabolic Ksr763 Os mo 287 mOsmo 10/22/2016 Comp Metabolic Lcg019 NA 143 mEq/L 06/17/2016 Comp Metabolic Nfz272 K 4.1 mEq/L 06/17/2016 Comp Metabolic Rgh731 CL 108 mEq/L 06/17/2016 Comp Metabolic Aez201 CO2 28.0 mEq/L 06/17/2016 Comp Metabolic Kui947 AN ION GAP 11 06/17/2016 Comp Metabolic Pjs692 GL UCOSE 106 mg/dL 06/17/2016 Comp Metabolic Usi234 Cr eat 0.9 mg/dL 06/17/2016 Comp Metabolic Sst756 eG FR 92 ml/min/1.73m2 06/17 Comp Metabolic Dpg726 BUN 22 mg/dL 06/17/2016 Comp Metabolic Bwi002 B/ C Ratio 25.9 Ratio 06/17/2016 Comp Metabolic Xql972 CA LCIUM 8.8 mg/dL 06/17/2016 Comp Metabolic Guq252 AL K PHOS 55 U/L 06/17/2016 Comp Metabolic Ggi754 T(SGOT) 21 U/L 06/17/2016 Comp Metabolic Aab776 AL T(SGPT) 24 U/L 06/17/2016 Comp Metabolic Rbx143 BI LI T 0.6 mg/dL 06/17/2016 Comp Metabolic Ewq694 AL BUMIN 4.0 g/dL 06/17/2016 Comp Metabolic Seu616 TP RO 6.2 g/dL 06/17/2016 Comp Metabolic Mag492 GL OB 2.2 g/dL 06/17/2016 Comp Metabolic Dan198 A/ G Ratio 1.8 Ratio 06/17/2016 Comp Metabolic Kwk725 Os mo 289 mOsmo 06/17/2016 Lipid Ord30 CHOL 163 mg/dL 06/17/2016 Lipid Ord30 HDL 54.0 mg/dl 06/17/2016 Lipid Ord30 TRIG 133 mg/dL 06/17/2016 Lipid Ord30 LDL 82 mg/dL 06/17/2016 Lipid Ord30 C/HDL 3.0 Ratio 06/17/2016 %Hba1C Nzl515 % HbA1c 81409-6 6.0 % 06/17/2016 %Hba1C Pyq959 Gluc Ave 126 mg/dL 06/17/2016 Total Psa [...] 32.7 pg 06/17/2016 Cbc With Differential Ord2 [place]% 10.7 % 06/17/2016 Cbc With Differential Ord2 [...] 1.71 K/ul 06/17/2016 Cbc With Differential Ord2 [place] ABS# 0.6 K/ul 06/17/2016 Cbc With Differential Ord2 Eos ABS# 0.2 K/ul 06/17/2016 Cbc With Differential Ord2 Baso ABS# 0.0 K/ul 06/17/2016 Tsh Ord6 hTSH II 2.91 uIU/mL 06/17/2016 Tsh Ord6 hTSH II 2.45 uIU/mL 02/19/2016 %Hba1C Jpd720 % HbA1c 61743-2 5.8 % 02/19/2016 %Hba1C Cxh358 Gluc Ave 120 mg/dL 02/19/2016 Comp Metabolic Irb762 NA 141 mEq/L 02/19/2016 Comp Metabolic Jkj487 K 4.2 mEq/L 02/19/2016 Comp Metabolic Sra258 CL 107 mEq/L 02/19/2016 Comp Metabolic Gft173 CO2 29.0 mEq/L 02/19/2016 Comp Metabolic Vzv443 AN ION GAP 9 02/19/2016 Comp Metabolic Wtz881 GL UCOSE 106 mg/dL 02/19/2016 Comp Metabolic Zof063 Cr eat 0.9 mg/dL 02/19/2016 Comp Metabolic Uui987 eG FR 90 ml/min/1.73m2 02/18 Comp Metabolic Org928 BUN 24 mg/dL 02/19/2016 Comp Metabolic Enw206 B/ C Ratio 27.6 Ratio 02/19/2016 Comp Metabolic Onb894 CA LCIUM 9.1 mg/dL 02/19/2016 Comp Metabolic Mmg597 AL K PHOS 67 U/L 02/19/2016 Comp Metabolic Anp320 T(SGOT) 25 U/L 02/19/2016 Comp Metabolic Iqw468 AL T(SGPT) 31 U/L 02/19/2016 Comp Metabolic Dtc647 BI LI T 0.6 mg/dL 02/19/2016 Comp Metabolic Ulu190 AL BUMIN 4.1 g/dL 02/19/2016 Comp Metabolic Jmj762 TP RO 6.5 g/dL 02/19/2016 Comp Metabolic Ycz561 GL OB 2.4 g/dL 02/19/2016 Comp Metabolic Iyo756 A/ G Ratio 1.7 Ratio 02/19/2016 Comp Metabolic Feo202 Os mo 286 mOsmo 02/19/2016 Cbc With [...] 31.7 pg 02/19/2016 Cbc With Differential Ord2 [place]% 10.5 % 02/19/2016 Cbc With Differential Ord2 [...] 1.59 K/ul 02/19/2016 Cbc With Differential Ord2 [place] ABS# 0.6 K/ul 02/19/2016 Cbc With Differential Ord2 Eos ABS# 0.3 K/ul 02/19/2016 Cbc With Differential Ord2 Baso ABS# 0.0 K/ul 02/19/2016 Lipid Ord30 CHOL 174 mg/dL 02/19/2016 Lipid Ord30 HDL 54.0 mg/dl 02/19/2016 Lipid Ord30 TRIG 110 mg/dL 02/19/2016 Lipid Ord30 LDL 98 mg/dL 02/19/2016 Lipid Ord30 C/HDL 3.2 Ratio 02/19/2016 %Hba1C Lpm151 % HbA1c 09042-0 6.0 % 11/11/2015 %Hba1C Kdp636 Gluc Ave 126 mg/dL 11/11/2015 %Hba1C Aui831 % HbA1c 17631-3 6.0 % 11/07/2015 %Hba1C Unm553 Gluc Ave 126 mg/dL 11/07/2015 Cbc With [...] 32.0 pg 11/06/2015 Cbc With Differential Ord2 [place]% 9.5 % 11/06/2015 Cbc With Differential Ord2 [...] 1.79 K/ul 11/06/2015 Cbc With Differential Ord2 [place] ABS# 0.6 K/ul 11/06/2015 Cbc With Differential Ord2 Eos ABS# 0.3 K/ul 11/06/2015 Cbc With Differential Ord2 Baso ABS# 0.0 K/ul 11/06/2015 Comp Metabolic Cou002 NA 141 mEq/L 11/06/2015 Comp Metabolic Tcc512 K 4.3 mEq/L 11/06/2015 Comp Metabolic Iuf430 CL 107 mEq/L 11/06/2015 Comp Metabolic Sgt597 CO2 28.0 mEq/L 11/06/2015 Comp Metabolic Fmb241 AN ION GAP 10 11/06/2015 Comp Metabolic Ftd748 GL UCOSE 117 mg/dL 11/06/2015 Comp Metabolic Bll455 Cr eat 0.9 mg/dL 11/06/2015 Comp Metabolic Zcq370 eG FR 88 ml/min/1.73m2 11/05 Comp Metabolic Xhe983 BUN 22 mg/dL 11/06/2015 Comp Metabolic Vzt998 B/ C Ratio 25.0 Ratio 11/06/2015 Comp Metabolic Rrb229 CA LCIUM 9.1 mg/dL 11/06/2015 Comp Metabolic Mar188 AL K PHOS 59 U/L 11/06/2015 Comp Metabolic Qug755 T(SGOT) 23 U/L 11/06/2015 Comp Metabolic Vbp507 AL T(SGPT) 26 U/L 11/06/2015 Comp Metabolic Irh243 BI LI T 0.6 mg/dL 11/06/2015 Comp Metabolic Dlu305 AL BUMIN 4.0 g/dL 11/06/2015 Comp Metabolic Zgv760 TP RO 6.4 g/dL 11/06/2015 Comp Metabolic Vce389 GL OB 2.4 g/dL 11/06/2015 Comp Metabolic Jth167 A/ G Ratio 1.7 Ratio 11/06/2015 Comp Metabolic Ytr115 Os mo 286 mOsmo 11/06/2015 Tsh Ord6 hTSH II 2.59 uIU/mL 11/06/2015 Lipid Ord30 CHOL 159 mg/dL 11/06/2015 Lipid Ord30 HDL 42.0 mg/dl 11/06/2015 Lipid Ord30 TRIG 129 mg/dL 11/06/2015 Lipid Ord30 LDL 91 mg/dL 11/06/2015 Lipid Ord30 C/HDL 3.8 Ratio 11/06/2015 Comp Metabolic Mgp199 NA 140 mEq/L 08/08/2015 Comp Metabolic Evp638 K 4.0 mEq/L 08/08/2015 Comp Metabolic Muh869 CL 108 mEq/L 08/08/2015 Comp Metabolic Hum608 CO2 25.0 mEq/L 08/08/2015 Comp Metabolic Igt697 AN ION GAP 11 08/08/2015 Comp Metabolic Ega906 GL UCOSE 100 mg/dL 08/08/2015 Comp Metabolic Ato096 Cr eat 0.9 mg/dL 08/08/2015 Comp Metabolic Rbr448 eG FR 82 ml/min/1.73m2 08/07 Comp Metabolic Avc023 BUN 19 mg/dL 08/08/2015 Comp Metabolic Hdd764 B/ C Ratio 20.2 Ratio 08/08/2015 Comp Metabolic Ttd144 CA LCIUM 8.5 mg/dL 08/08/2015 Comp Metabolic Lbs435 AL K PHOS 56 U/L 08/08/2015 Comp Metabolic Ftb082 T(SGOT) 18 U/L 08/08/2015 Comp Metabolic Kme949 AL T(SGPT) 17 U/L 08/08/2015 Comp Metabolic Tja324 BI LI T 0.7 mg/dL 08/08/2015 Comp Metabolic Ffa424 AL BUMIN 3.9 g/dL 08/08/2015 Comp Metabolic Lyi141 TP RO 6.2 g/dL 08/08/2015 Comp Metabolic Qna317 GL OB 2.3 g/dL 08/08/2015 Comp Metabolic Gqq998 A/ G Ratio 1.7 Ratio 08/08/2015 Comp Metabolic Vpd744 Os mo 282 mOsmo 08/08/2015 Tsh Ord6 hTSH II 3.19 uIU/mL 08/08/2015 %Hba1C Cbf770 % HbA1c 58229-4 5.7 % 08/08/2015 %Hba1C Edz098 Gluc Ave 117 mg/dL 08/08/2015 Cbc With [...] 29.4 % 08/08/2015 Cbc With Differential Ord2 [place]% 10.9 % 08/08/2015 Cbc With Differential Ord2 [...] 1.51 K/ul 08/08/2015 Cbc With Differential Ord2 [place] ABS# 0.6 K/ul 08/08/2015 Cbc With Differential Ord2 Eos ABS# 0.2 K/ul 08/08/2015 Cbc With Differential Ord2 Baso ABS# 0.0 K/ul 08/08/2015 Lipid Ord30 CHOL 127 mg/dL 08/08/2015 Lipid Ord30 HDL 34.0 mg/dl 08/08/2015 Lipid Ord30 TRIG 93 mg/dL 08/08/2015 Lipid Ord30 LDL 74 mg/dL 08/08/2015 Lipid Ord30 C/HDL 3.7 Ratio 08/08/2015 Review of Systems System Result Effective Dates Constitutional No recent illness 08/25/2017 Constitutional No [...] Procedure Codes Date DRAIN/INJECT JOINT/B URSA CPT-4: 83175 08/25/2017 PPPS, SUBSEQ VISIT CPT- 4: G0439 05/30/2017 ADMIN INFLUENZA VIRU S VAC CPT-4: G0008 12/21/2016 FLU VACC PRSV FREE I NC ANTIG CPT-4: 14591 12/21/2016 PPPS, SUBSEQ VISIT CPT- 4: G0439 05/21/2016 TRIAMCINOLONE ACET I [place] NOS CPT-4: J3301 04/21/2016 THER/PROPH/DIAG INJ SC/IM CPT-4: 85427 04/21/2016 DRAIN/INJECT JOINT/B URSA CPT-4: 54784 11/13/2015 PNEUMOCOCCAL VACC [address]: 13959779 CPT-4: 99673 11/13/2015 ADMIN PNEUMOCOCCAL V ACCINE SNOMED CT: 14131668 CPT-4: G0009 11/13/2015 ADMIN INFLUENZA VIRU S VAC CPT-4: G0008 11/11/2015 FLU VACC 4 AZUL 3 YRS PLUS IM SNOMED CT: 98812727 CPT-4: 42084 11/11/2015 Vital Signs Date Vital 08/25/2017 Blood Pressure 1: 126/74 Code: 8480-6 BMI: 26.2 Code: 15612-6 Heart Rate 1: 70 bpm Height: 5'7" SpO2: 94% Weight: 167 lbs 05/30/2017 Blood Pressure 1: 120/66 Code: 8480-6 BMI: 26.6 Code: 30861-0 Heart Rate 1: 66 bpm Height: 5'7" SpO2: 95% Waist Measure (cm): 97 cm Weight: 170 lbs 04/20/2017 Blood Pressure 1: 138/78 Code: 8480-6 BMI: 26.6 Code: 36630-9 Heart Rate 1: 86 bpm Height: 5'7" SpO2: 96% Weight: 170 lbs 01/21/2017 Blood Pressure 1: 136/70 Code: 8480-6 BMI: 26.3 Code: 05305-1 Heart Rate 1: 79 bpm Height: 5'7" SpO2: 95% Weight: 168 lbs 10/22/2016 Blood Pressure 1: 134/72 Code: 8480-6 BMI: 26.3 Code: 91272-6 Heart Rate 1: 70 bpm Height: 5'7" SpO2: 95% Weight: 168 lbs 10/04/2016 Blood Pressure 1: 142/80 Code: 8480-6 BMI: 26.6 Code: 12805-9 Heart Rate 1: 72 bpm Height: 5'7" SpO2: 93% Weight: 170 lbs 06/18/2016 Blood Pressure 1: 132/76 Code: 8480-6 BMI: 26.2 Code: 00647-1 Heart Rate 1: 65 bpm Height: 5'7" SpO2: 95% Weight: 167 lbs 8 oz 05/21/2016 Blood Pressure 1: 126/76 Code: 8480-6 BMI: 26.0 Code: 43099-8 Heart Rate 1: 72 bpm Height: 5'7" SpO2: 98% Weight: 166 lbs 04/29/2016 Blood Pressure 1: 128/70 Code: 8480-6 BMI: 25.7 Code: 72075-7 Heart Rate 1: 67 bpm Height: 5'7" SpO2: 97% Temperature: 36.3 (C ) / 97.4 (F) Weight: 164 lbs 04/21/2016 Blood Pressure 1: 130/62 Code: 8480-6 BMI: 26.3 Code: 24378-9 Heart Rate 1: 74 bpm Height: 5'7" SpO2: 96% Temperature: 37.0 (C ) / 98.6 (F) Weight: 168 lbs 02/20/2016 Blood Pressure 1: 120/64 Code: 8480-6 BMI: 26.2 Code: 31846-4 Heart Rate 1: 65 bpm Height: 5'7" SpO2: 94% Weight: 167 lbs 01/01/2016 Blood Pressure 1: 106/60 Code: 8480-6 BMI: 25.7 Code: 23648-2 Heart Rate 1: 73 bpm Height: 5'7" SpO2: 98% Weight: 164 lbs 11/13/2015 Blood Pressure 1: 122/86 Code: 8480-6 BMI: 25.8 Code: 37849-5 Heart Rate 1: 80 bpm Height: 5'7" SpO2: 92% Weight: 165 lbs 11/07/2015 Blood Pressure 1: 118/64 Code: 8480-6 BMI: 25.8 Code: 27267-9 Heart Rate 1: 66 bpm Height: 5'7" SpO2: 95% Weight: 165 lbs 08/07/2015 Blood Pressure 1: 122/80 Code: 8480-6 BMI: 24.4 Code: 76724-4 Heart Rate 1: 74 bpm Height: 5'7" [...] Encounters Encounter Performer Loca tion Codes Date [id number] EST. PATIENT, LEVEL IV Diagnosis: Type 2 diabetes mellitus without complications[ICD10: E11.9] Diagnosis: Essential (primary) hypertension[ICD10: I10] Diagnosis: Pain in right knee[ICD10: M25.561] Lakeisha Hoskins MD, [facility] CPT-4: 71653 08/25/2017 [id number] EST. PATIENT, LEVEL IV Diagnosis: Type 2 diabetes mellitus without complications[ICD10: E11.9] Diagnosis: Essential (primary) hypertension[ICD10: I10] Lakeisha Hoskins MD, [facility] CPT-4: 41812 04/20/2017 ([id number]) [id number] EST. P ATIENT, LEVEL III Diagnosis: Essential (primary) hypertension[ICD10: I10] Diagnosis: Obstructive sleep apnea (adult) (pediatric)[ICD10: G47.33] Nancy Hoskins MD, [facility] CPT-4: 61900 01/21/2017 ([id number]) [id number] EST. P ATIENT, LEVEL IV Diagnosis: Essential (primary) hypertension[ICD10: I10] Diagnosis: Type 2 diabetes mellitus without complications[ICD10: E11.9] Diagnosis: Obstructive sleep apnea (adult) (pediatric)[ICD10: G47.33] Nancy Hoskins MD, [facility] CPT-4: 73323 10/22/2016 ([id number]) 28949 EST. P ATIENT, LEVEL III Diagnosis: Localized edema[ICD10: R60.0] Diagnosis: Rash and other nonspecific skin eruption[ICD10: R21] Nancy Hoskins MD, [facility] CPT-4: 83507 10/04/2016 ([id number]) 34109 EST. P ATIENT, LEVEL IV Diagnosis: Essential (primary) hypertension[ICD10: I10] Diagnosis: Type 2 diabetes mellitus without complications[ICD10: E11.9] Diagnosis: Mixed hyperlipidemia[ICD10: E78.2] Nancy Hoskins MD, [facility] CPT-4: 22986 06/18/2016 ([id number]) 03735 EST. P ATIENT, LEVEL III Diagnosis: Cough[ICD10: R05] Diagnosis: Acute bronchitis, unspecified[ICD10: J20.9] Nancy Hoskins MD, [facility] CPT-4: 63256 04/29/2016 [id number] EST. PATIENT, LEVEL IV Diagnosis: Other acute sinusitis[ICD10: J01.80] Diagnosis: Other allergic rhinitis[ICD10: J30.89] Lakeisha Hoskins MD, [facility] CPT-4: 00078 04/21/2016 ([id number]) 05465 EST. P ATIENT, LEVEL IV Diagnosis: Essential (primary) hypertension[ICD10: I10] Diagnosis: Type 2 diabetes mellitus without complications[ICD10: E11.9] Diagnosis: Mixed hyperlipidemia[ICD10: E78.2] Diagnosis: Primary generalized (osteo)arthritis[ICD10: M15.0] Nancy Hoskins MD, [facility] CPT-4: 28805 02/20/2016 ([id number] [id number] EST. P ATIENT, LEVEL IV Diagnosis: Cough[ICD10: R05] Diagnosis: Acute bronchitis due to Hemophilus influenzae[ICD10: J20.1] Diagnosis: Type 2 diabetes mellitus without complications[ICD10: E11.9] Diagnosis: Essential (primary) hypertension[ICD10: I10] Charlene Hoskins MD, [facility] CPT-4: 75961 01/01/2016 [id number] EST. P ATIENT, LEVEL IV Diagnosis: Essential (primary) hypertension[ICD10: I10] Diagnosis: Mixed hyperlipidemia[ICD10: E78.2] Diagnosis: Type 2 diabetes mellitus without complications[ICD10: E11.9] Nancy Hoskins MD, [facility] CPT-4: 65752 11/07/2015 OFFICE VISIT, NEW - LEVEL 4 Diagnosis: Type 2 diabetes mellitus without complications[ICD10: E11.9] Diagnosis: Essential (primary) hypertension[ICD10: I10] Diagnosis: Mixed hyperlipidemia[ICD10: E78.2] Diagnosis: Elevated prostate specific antigen [PSA][ICD10: R97.2] Nancy Hoskins MD, [facility] CPT-4: 61703 08/07/2015 Plan of Care Planned Activity Notes [...] of injection. 08/25/2017 Appointment: Lakeisha Putnam WPtel: [phone] (15 min) Moderate 08/25/2017 Patient Education: Patient [...] Summary Completed 05/30/2017 Appointment: Lakeisha Putnam WPtel[facility] [facility] - Annual [facility] Visit 05/27/2017 Appointment: Nancy Tavares WPtel: [phone] (30 min) Complex 04/22/2017 Visit Plan: Hypertension [...] controlled. 04/20/2017 Appointment: Lakeisha Putnam [facility]Ptel[phone] (30 min) Complex 04/20/2017 Patient Education: Patient [...] SSD. 01/21/2017 Appointment: Nancy Tavares WPtel: [phone] [phone] (30 min) Complex 01/21/2017 Appointment: [phone] (30 min) Complex 01/21/2017 Patient Education: Patient [...] Nancy Tavares WPtel: [phone] [phone] (30 min) Complex 10/22/2016 Patient Education: Patient [...] plan. 10/04/2016 Appointment: Nancy Tavares WPtel: [phone] [phone] (15 min) Moderate 10/04/2016 Patient Education: Patient [...] dications. 06/18/2016 Appointment: Nancy Tavares WPtel: [phone] [phone] (15 min) Moderate 06/18/2016 Patient Education: Patient [...] acutely worsen. 04/29/2016 Appointment: Nancy Tavares WPtel: [address] [place], [place] [phone] (15 min) Moderate 04/29/2016 Patient Education: Patient Medication Summary Completed 04/29/2016 Care Plan: CHEST X-RAY 2VW FRONTAL&LATL LOINC : 18640-5 Pending 04/29/2016 Visit Plan: Sinusitis - Pt [...] allergy spray. 04/21/2016 Appointment: Lakeisha Putnam WPtel: [address] [place], [place] [phone] (15 min) Moderate 04/21/2016 Patient Education: Patient [...] provided 02/20/2016 Appointment: Nancy Tavares WPtel: [phone] [phone] (30 min) Complex 02/20/2016 Patient Education: Patient [...] controlled. 01/01/2016 Appointment: [phone] (15 min) Moderate 01/01/2016 Patient Education: Patient [...] of injection. 11/13/2015 Appointment: Nancy [facility]avares [facility]Ptel: [phone] [phone] (15 min) Moderate 11/13/2015 Patient Education: Patient [...] response to medications. DM-too early for Hgb [id number] to have done next week 11/07/2015 Appointment: Nancy Tavares WPtel: [phone] [phone] (15 min) Moderate 11/07/2015 Patient Education: Patient [...] biopsy results 08/07/2015 Appointment: [facility]ava[facility]el[phone] [phone] New Patient 08/07/2015 Patient Education: Patient Medication [...] TIMES WEEKLY CONTINUE STEROID CREAM ORDERED BY RF DESIGN ENGINEER CULTURE RASH LEFT AXILLA . Edema - [...] verbalized understanding of plan. . Hypertension - con tinue with current [...] note to [facility] [employer] [facility]. RETURN FOR FASTING L ABS . Diabetes [...] response to medications. DM-too early for Hgb [id number] to have done next week CXR STOP SYMBICORT TWO PUFFS BID . Bronchitis - acute case of bronchitis identified. Pt has been given antibiotics, breathing treatments as appropriate, and pt has been instructed to call if symptoms are not improved, or if symptoms acutely worsen.
--- OUTSIDE RECORDS SUMMARY | 2019-04-11 03:54 | XMS REPORT | CCD ---
Author Author Cesar Tavares Organization Charlene Hoskins MD, [facility] Address [address] [place] [address] Phone Care Team Providers Care Corporate Vp Advertising & Online Name Role Phone PP Unavailable CCM Unavailable Summary Purpose Interface Exchange Insurance Providers Payer name Policy type / Coverage type Covered democrat ID Effective Begin Date Effective End Date WPS Medicare Part B Medicare Part B [id number] Unknown [facility] Part B [id number] Un known Family history Brother Diagnosis Age [...] Retir ed 08/07/[address]: 4299363 Quit over 10 years ago 1970 08/07/[address]: 598433144 Never drinks alcohol 08/07/2015 Allergies, Adverse Reactions, [...] mc g-50 mcg/dose powder for inhalation RxNorm: 6054052 INHALE 1 DOSE BY MOUTH TWICE DAILY 12/19/2017 No Stop Date Active meloxicam 7.5 mg tablet RxNorm: 357421 TAKE 1 TABLET BY MOUTH ONCE DAILY 12/01/2017 No Stop Date Active simvastatin 20 mg ta blet RxNorm: 224637 TAKE 1 TABLET BY MOUT H ONCE DAILY 11/14/2017 No Stop Date Active losartan 50 mg tablet RxNorm: 774479 TAKE ONE TABLET BY MOUTH ONCE DAILY 10/27/2017 No Stop Date Active fluticasone 50 mcg/a ctuation nasal spray,suspension RxNorm: 2730966 USE TWO SPRAY(S) IN EACH NOSTRIL ONCE DAILY 10/19/2017 No Stop Date Active Advair Diskus 250 mc g-50 mcg/dose powder for inhalation RxNorm: 9771732 INHALE 1 DOSE BY MOUTH TWICE DAILY 10/19/2017 12/18/2017 Inactive Kenalog 40 mg/mL maggie pension for injection RxNorm: 4986542 1 Milliliter(s) Inj 08/25/2017 08/25/2017 In active meloxicam 7.5 mg tablet RxNorm: 243203 TAKE ONE TABLET BY MOUTH ONCE DAILY 06/06/2017 11/30/2017 In active simvastatin 20 mg ta blet RxNorm: 694037 TAKE ONE TABLET BY MO UTH ONCE DAILY 05/17/2017 11/13/2017 In active metformin 500 mg tablet RxNorm: 428096 TAKE ONE TABLET BY MOUTH ONCE DAILY 05/05/2017 No Stop Date Active Advair Diskus 250 mc g-50 mcg/dose powder for inhalation RxNorm: 7611062 INHALE ONE DOSE BY MOUTH TWICE DAILY 04/19/2017 10/18/2017 Inactive Tamiflu 75 mg capsule RxNorm: 313880 1 Capsule(s) PO daily 03/25/2017 03/24/2017 Inactive Tamiflu 75 mg capsule RxNorm: 091012 1 Capsule(s) PO daily 03/25/2017 03/31/2017 Inactive montelukast 10 mg ta blet RxNorm: 919599 TAKE ONE TABLET BY MO UTH ONCE DAILY 03/21/2017 No Stop Date Active losartan 50 mg tablet RxNorm: 716470 TAKE ONE TABLET BY MOUTH ONCE DAILY 01/27/2017 10/26/2017 In active fluticasone 50 mcg/a ctuation nasal spray,suspension RxNorm: 7306347 USE TWO SPRAY(S) IN EACH NOSTRIL ONCE DAILY 01/17/2017 10/18/2017 Inactive meloxicam 7.5 mg tablet RxNorm: 556955 TAKE ONE TABLET BY MOUTH ONCE DAILY 12/06/2016 06/03/2017 In active metformin 500 mg tablet RxNorm: 050683 Tablet(s) TAKE ONE TABLET BY MOUTH TWICE DAILY 11/30/2016 11/24/2017 Inactive simvastatin 20 mg ta blet RxNorm: 699402 TAKE ONE TABLET BY [facility] ONCE DAILY 11/15/2016 05/13/2017 In active Advair Diskus 250 mc g-50 mcg/dose powder for inhalation RxNorm: 3966488 INHALE ONE PUFF BY MOUTH TWICE DAILY 10/22/2016 04/18/2017 [facility] Rx[facility]: 013600 1 Application TOP TIW 10/04/2016 10/17/2016 Inactive fluticasone 50 mcg/a ctuation nasal spray,suspension RxNorm: 8672641 USE TWO SPRAY(S) IN EACH NOSTRIL ONCE DAILY 09/21/2016 11/19/2016 Inactive montelukast 10 mg ta blet RxNorm: 121938 TAKE ONE TABLET BY [facility] ONCE DAILY 09/21/2016 03/19/2017 In active losartan 50 mg tablet RxNorm: 354799 TAKE ONE TABLET BY MOUTH ONCE DAILY 08/02/2016 01/26/2017 In active metformin 500 mg tablet RxNorm: 067282 TAKE ONE TABLET BY MOUTH TWICE DAILY 07/22/2016 10/19/2016 In active furosemide 20 mg tablet RxNorm: 668844 1 Tablet(s) PO daily as needed for swell ing 07/21/2016 10/18/2016 Inactive meloxicam 7.5 mg tablet RxNorm: 166857 TAKE ONE TABLET BY MOUTH ONCE DAILY 06/08/2016 12/04/2016 In active cefdinir 300 mg capsule RxNorm: 590003 1 Capsule(s) PO BID 04/29/2016 05/05/2016 Inactive prednisone 20 mg tablet RxNorm: 176878 1 Tablet(s) PO BID 04/29/2016 05/03/2016 Inactive Zithromax Z-Sherif 250 mg tablet RxNorm: 585384 1 Tablet(s) PO UD 04/21/2016 04/28/2016 Inactive Kenalog 40 mg/mL maggie pension for injection RxNorm: 6081553 1 Milliliter(s) Inj 04/21/2016 04/21/2016 In active montelukast 10 mg ta blet RxNorm: 373849 TAKE ONE TABLET BY [facility] ONCE DAILY 03/22/2016 09/17/2016 In active fluticasone 50 mcg/a ctuation nasal spray,suspension RxNorm: 3743675 2 Newman NASAL daily each nare 03/15/2016 07/12/2016 Inactive qs metformin 500 mg tablet RxNorm: 356637 1 Tablet(s) PO daily 01/16/2016 2016 Inactive Patient does not need a refill- just upd ate dosing simvastatin 40 mg ta blet RxNorm: 932314 1 Tablet(s) PO daily 01/01/2016 No Stop Date Active Advair Diskus 250 mc g-50 mcg/dose powder for inhalation RxNorm: 2768240 1 INH BID 01/01/2016 04/29/2016 In active Advair Diskus 250 mc g-50 mcg/dose powder for inhalation RxNorm: 2890838 1 INH daily 01/01/2016 12/31/2015 Inactive metformin 500 mg tablet RxNorm: 187506 1 Tablet(s) PO daily 01/01/2016 01/15/2016 Inactive azithromycin 250 mg tablet RxNorm: 821516 1 Tablet(s) PO take t wo pills on day #1, then one pill daily x 4 more days 01/01/2016 02/17/2016 Inactive meloxicam 7.5 mg tablet RxNorm: 991318 1 Tablet(s) PO daily 12/11/2015 06/07/2016 Inactive simvastatin 20 mg ta blet RxNorm: 892969 1 Tablet(s) PO daily 11/21/2015 12/31/2015 Inactive metformin 500 mg tablet RxNorm: 402643 1 Tablet(s) PO BID 11/21/2015 12/31/2015 Inactive Advair Diskus 250 mc g-50 mcg/dose powder for inhalation RxNorm: 4734413 1 INH BID 11/21/2015 12/31/2015 In active montelukast 10 mg ta blet RxNorm: 055142 1 Tablet(s) PO daily 09/25/2015 03/21/2016 Inactive losartan 50 mg tablet RxNorm: 597377 1 Tablet(s) PO daily 09/04/2015 08/01/2016 Inactive Restasis 0.05 % eye drops in a dropperette RxNorm: 040427 1 gtts OPH BID 08/07/2015 No Stop Date Active meloxicam 7.5 mg tablet RxNorm: 180045 1 Tablet(s) PO daily 08/07/2015 09/05/2015 Inactive Kay oral RxNorm: 564250 oral No Start Date Active finasteride 5 mg tablet RxNorm: 320364 1 Tablet(s) PO daily No Start Date Active Zyrtec 10 mg tablet RxNorm: 8931514 1 Tablet(s) PO daily No Start Date Active Co Q-10 200 mg capsule RxNorm: 708803 1 Capsule(s) PO daily No Start Date Active Calcium 500 + D (D3) oral RxNorm: 097433 oral No S tart Date Active simethicone 125 mg c apsule RxNorm: 888514 Capsule(s) PO as needed No Start Date Active Vitamin D3 1,000 uni t tablet RxNorm: 627287 1 Tablet(s) PO daily No Start Date Active omega-3 fatty acids 1,000 mg capsule RxNorm: 4 Capsule(s) PO daily No Start Date Active triamcinolone aceton chasity 0.1 % topical cream RxNorm: 1995981 1 TOP UD No Start Date Active fluticasone 50 mcg/a ctuation nasal spray,suspension RxNorm: 1338135 2 Newman NASAL daily each nare No Start Date 03/14/2016 Inactive losartan 50 mg tablet RxNorm: 476436 1 Tablet(s) PO daily No Start Date 09/03/2015 Inactive metformin 500 mg tablet RxNorm: 581896 1 Tablet(s) PO daily No Start Date 11/20/2015 Inactive simvastatin 40 mg ta blet RxNorm: 921029 1 Tablet(s) PO daily No Start Date 11/20/2015 Inactive furosemide 20 mg tablet RxNorm: 061594 1 Tablet(s) PO daily as needed No Start Date 07/20/2016 Inactive Advair Diskus 250 mc g-50 mcg/dose powder for inhalation RxNorm: 6130134 1 INH daily No Start Date 11/20/2015 Inactive Multiple Vitamin oral RxNorm: 53800 oral No Start Date 12/31/2015 Inactive montelukast 10 mg ta blet RxNorm: 068793 1 Tablet(s) PO daily No Start Date 09/24/2015 Inactive Medication Administered Medication Codes Instruc tions Start Date Status Kenalog 40 mg/mL suspension for injection RxNorm: 8969047 1Milliliter 08/25/2017 N o longer Active Kenalog 40 mg/mL suspension for injection RxNorm: 2126496 1Milliliter 04/21/2016 N o longer Active Immunizations [...] Code Item Item Code Result Date %Hba1C Acx648 % HbA1c 42586-7 6.2 % 04/20/2017 %Hba1C Srl675 Gluc Ave 131 mg/dL 04/20/2017 Cbc With [...] 27.7 % 04/20/2017 Cbc With Differential Ord2 Lea% 9.3 % 04/20/2017 Cbc With Differential Ord2 [...] 1.82 K/ul 04/20/2017 Cbc With Differential Ord2 Lea ABS# 0.6 K/ul 04/20/2017 Cbc With Differential Ord2 Eos ABS# 0.2 K/ul 04/20/2017 Cbc With Differential Ord2 Baso ABS# 0.0 K/ul 04/20/2017 Comp Metabolic Fjo266 NA 141 mEq/L 04/20/2017 Comp Metabolic Cvn708 K 4.5 mEq/L 04/20/2017 Comp Metabolic Isk731 CL 106 mEq/L 04/20/2017 Comp Metabolic Hny823 CO2 27.0 mEq/L 04/20/2017 Comp Metabolic Ams761 AN ION GAP 13 04/20/2017 Comp Metabolic Ymb013 GL UCOSE 109 mg/dL 04/20/2017 Comp Metabolic Zbl699 Cr eat 1.0 mg/dL 04/20/2017 Comp Metabolic Gpk272 eG FR 81 ml/min/1.73m2 04/20 Comp Metabolic Ixw656 BUN 23 mg/dL 04/20/2017 Comp Metabolic Mhb452 B/ C Ratio 24.2 Ratio 04/20/2017 Comp Metabolic Gnf351 CA LCIUM 9.3 mg/dL 04/20/2017 Comp Metabolic Aed909 AL K PHOS 82 U/L 04/20/2017 Comp Metabolic Zkk237 T(SGOT) 22 U/L 04/20/2017 Comp Metabolic Zkx653 AL T(SGPT) 24 U/L 04/20/2017 Comp Metabolic Wko418 BI LI T 0.4 mg/dL 04/20/2017 Comp Metabolic Jzy065 AL BUMIN 4.3 g/dL 04/20/2017 Comp Metabolic Mun400 TP RO 6.8 g/dL 04/20/2017 Comp Metabolic Fzr443 GL OB 2.5 g/dL 04/20/2017 Comp Metabolic Hup756 A/ G Ratio 1.7 Ratio 04/20/2017 Comp Metabolic Udr001 Os mo 286 mOsmo 04/20/2017 %Hba1C Xkf700 % HbA1c 65965-4 5.8 % 10/22/2016 %Hba1C Qak561 Gluc Ave 120 mg/dL 10/22/2016 Cbc With [...] 32.5 pg 10/22/2016 Cbc With Differential Ord2 Lea% 10.3 % 10/22/2016 Cbc With Differential Ord2 [...] 1.85 K/ul 10/22/2016 Cbc With Differential Ord2 Lea ABS# 0.8 K/ul 10/22/2016 Cbc With Differential Ord2 Eos ABS# 0.3 K/ul 10/22/2016 Cbc With Differential Ord2 Baso ABS# 0.0 K/ul 10/22/2016 Comp Metabolic Snn885 NA 141 mEq/L 10/22/2016 Comp Metabolic Guw754 K 4.4 mEq/L 10/22/2016 Comp Metabolic Jiq617 CL 105 mEq/L 10/22/2016 Comp Metabolic Jky846 CO2 27.0 mEq/L 10/22/2016 Comp Metabolic Vxg500 AN ION GAP 13 10/22/2016 Comp Metabolic Nbt221 GL UCOSE 103 mg/dL 10/22/2016 Comp Metabolic Pmu699 Cr eat 1.0 mg/dL 10/22/2016 Comp Metabolic Uly554 eG FR 76 ml/min/1.73m2 10/22 Comp Metabolic Qcx721 BUN 27 mg/dL 10/22/2016 Comp Metabolic Drw296 B/ C Ratio 27.0 Ratio 10/22/2016 Comp Metabolic Ssi152 CA LCIUM 9.3 mg/dL 10/22/2016 Comp Metabolic Ccf747 AL K PHOS 72 U/L 10/22/2016 Comp Metabolic Hvs676 T(SGOT) 23 U/L 10/22/2016 Comp Metabolic Lbh804 AL T(SGPT) 26 U/L 10/22/2016 Comp Metabolic Okk752 BI LI T 0.4 mg/dL 10/22/2016 Comp Metabolic Ahs174 AL BUMIN 4.2 g/dL 10/22/2016 Comp Metabolic Dsp931 TP RO 6.7 g/dL 10/22/2016 Comp Metabolic Wfs947 GL OB 2.5 g/dL 10/22/2016 Comp Metabolic Fny120 A/ G Ratio 1.6 Ratio 10/22/2016 Comp Metabolic Non269 Os mo 287 mOsmo 10/22/2016 Comp Metabolic Vow015 NA 143 mEq/L 06/17/2016 Comp Metabolic Nop292 K 4.1 mEq/L 06/17/2016 Comp Metabolic Hrr515 CL 108 mEq/L 06/17/2016 Comp Metabolic Pnk327 CO2 28.0 mEq/L 06/17/2016 Comp Metabolic Hec636 AN ION GAP 11 06/17/2016 Comp Metabolic Tef469 GL UCOSE 106 mg/dL 06/17/2016 Comp Metabolic Wvg303 Cr eat 0.9 mg/dL 06/17/2016 Comp Metabolic Ehd771 eG FR 92 ml/min/1.73m2 06/17 Comp Metabolic Lns846 BUN 22 mg/dL 06/17/2016 Comp Metabolic Ohn729 B/ C Ratio 25.9 Ratio 06/17/2016 Comp Metabolic Bce841 CA LCIUM 8.8 mg/dL 06/17/2016 Comp Metabolic Vfi868 AL K PHOS 55 U/L 06/17/2016 Comp Metabolic Uqd873 T(SGOT) 21 U/L 06/17/2016 Comp Metabolic Dfl191 AL T(SGPT) 24 U/L 06/17/2016 Comp Metabolic Pnz425 BI LI T 0.6 mg/dL 06/17/2016 Comp Metabolic Zrc743 AL BUMIN 4.0 g/dL 06/17/2016 Comp Metabolic Znk425 TP RO 6.2 g/dL 06/17/2016 Comp Metabolic Pzm535 GL OB 2.2 g/dL 06/17/2016 Comp Metabolic Vnj673 A/ G Ratio 1.8 Ratio 06/17/2016 Comp Metabolic Aah925 Os mo 289 mOsmo 06/17/2016 Lipid Ord30 CHOL 163 mg/dL 06/17/2016 Lipid Ord30 HDL 54.0 mg/dl 06/17/2016 Lipid Ord30 TRIG 133 mg/dL 06/17/2016 Lipid Ord30 LDL 82 mg/dL 06/17/2016 Lipid Ord30 C/HDL 3.0 Ratio 06/17/2016 %Hba1C Bic372 % HbA1c 93089-7 6.0 % 06/17/2016 %Hba1C Quq184 Gluc Ave 126 mg/dL 06/17/2016 Total Psa [...] 32.7 pg 06/17/2016 Cbc With Differential Ord2 Lea% 10.7 % 06/17/2016 Cbc With Differential Ord2 [...] 1.71 K/ul 06/17/2016 Cbc With Differential Ord2 Lea ABS# 0.6 K/ul 06/17/2016 Cbc With Differential Ord2 Eos ABS# 0.2 K/ul 06/17/2016 Cbc With Differential Ord2 Baso ABS# 0.0 K/ul 06/17/2016 Tsh Ord6 hTSH II 2.91 uIU/mL 06/17/2016 Tsh Ord6 hTSH II 2.45 uIU/mL 02/19/2016 %Hba1C Lje066 % HbA1c 13754-4 5.8 % 02/19/2016 %Hba1C Scm188 Gluc Ave 120 mg/dL 02/19/2016 Comp Metabolic Acw620 NA 141 mEq/L 02/19/2016 Comp Metabolic Zqq606 K 4.2 mEq/L 02/19/2016 Comp Metabolic Bbh289 CL 107 mEq/L 02/19/2016 Comp Metabolic Teu466 CO2 29.0 mEq/L 02/19/2016 Comp Metabolic Vrg925 AN ION GAP 9 02/19/2016 Comp Metabolic Bbr514 GL UCOSE 106 mg/dL 02/19/2016 Comp Metabolic Dbr611 Cr eat 0.9 mg/dL 02/19/2016 Comp Metabolic Neo960 eG FR 90 ml/min/1.73m2 02/18 Comp Metabolic Nqt317 BUN 24 mg/dL 02/19/2016 Comp Metabolic Slh397 B/ C Ratio 27.6 Ratio 02/19/2016 Comp Metabolic Nyj945 CA LCIUM 9.1 mg/dL 02/19/2016 Comp Metabolic Lfq409 AL K PHOS 67 U/L 02/19/2016 Comp Metabolic Klj725 T(SGOT) 25 U/L 02/19/2016 Comp Metabolic Lky499 AL T(SGPT) 31 U/L 02/19/2016 Comp Metabolic Dtb166 BI LI T 0.6 mg/dL 02/19/2016 Comp Metabolic Zva410 AL BUMIN 4.1 g/dL 02/19/2016 Comp Metabolic Nxl717 TP RO 6.5 g/dL 02/19/2016 Comp Metabolic Hie119 GL OB 2.4 g/dL 02/19/2016 Comp Metabolic Azn627 A/ G Ratio 1.7 Ratio 02/19/2016 Comp Metabolic Jbx940 Os mo 286 mOsmo 02/19/2016 Cbc With [...] 31.7 pg 02/19/2016 Cbc With Differential Ord2 Lea% 10.5 % 02/19/2016 Cbc With Differential Ord2 [...] 1.59 K/ul 02/19/2016 Cbc With Differential Ord2 Lea ABS# 0.6 K/ul 02/19/2016 Cbc With Differential Ord2 Eos ABS# 0.3 K/ul 02/19/2016 Cbc With Differential Ord2 Baso ABS# 0.0 K/ul 02/19/2016 Lipid Ord30 CHOL 174 mg/dL 02/19/2016 Lipid Ord30 HDL 54.0 mg/dl 02/19/2016 Lipid Ord30 TRIG 110 mg/dL 02/19/2016 Lipid Ord30 LDL 98 mg/dL 02/19/2016 Lipid Ord30 C/HDL 3.2 Ratio 02/19/2016 %Hba1C Uzs527 % HbA1c 04717-7 6.0 % 11/11/2015 %Hba1C Dnh460 Gluc Ave 126 mg/dL 11/11/2015 %Hba1C Hjx863 % HbA1c 06998-8 6.0 % 11/07/2015 %Hba1C Lfu771 Gluc Ave 126 mg/dL 11/07/2015 Cbc With [...] 32.0 pg 11/06/2015 Cbc With Differential Ord2 Lea% 9.5 % 11/06/2015 Cbc With Differential Ord2 Eos% 5.2 % 11/06/2015 Cbc With Differential Ord2 MCHC 34.1 pg 11/06/2015 Cbc With Differential Ord2 Baso% 0.3 % 11/06/2015 Cbc With Differential Ord2 PLT 206 K/ul 11/06/2015 Cbc With Differential Ord2 Neut ABS# 3.28 K/ul 11/06/2015 Cbc With Differential Ord2 RDW 14.1 % 11/06/2015 Cbc With Differential Ord2 Lymph ABS# 1.79 K/ul 11/06/2015 Cbc With Differential Ord2 Lea ABS# 0.6 K/ul 11/06/2015 Cbc With Differential Ord2 Eos ABS# 0.3 K/ul 11/06/2015 Cbc With Differential Ord2 Baso ABS# 0.0 K/ul 11/06/2015 Comp Metabolic Reu192 NA 141 mEq/L 11/06/2015 Comp Metabolic Bkn210 K 4.3 mEq/L 11/06/2015 Comp Metabolic Hkj373 CL 107 mEq/L 11/06/2015 Comp Metabolic Rpx533 CO2 28.0 mEq/L 11/06/2015 Comp Metabolic Evt593 AN ION GAP 10 11/06/2015 Comp Metabolic Yjw715 GL UCOSE 117 mg/dL 11/06/2015 Comp Metabolic Jlm608 Cr eat 0.9 mg/dL 11/06/2015 Comp Metabolic Nkw837 eG FR 88 ml/min/1.73m2 11/05 Comp Metabolic Anc742 BUN 22 mg/dL 11/06/2015 Comp Metabolic Hle804 B/ C Ratio 25.0 Ratio 11/06/2015 Comp Metabolic Xwr857 CA LCIUM 9.1 mg/dL 11/06/2015 Comp Metabolic Aon505 AL K PHOS 59 U/L 11/06/2015 Comp Metabolic Ung887 T(SGOT) 23 U/L 11/06/2015 Comp Metabolic Wes194 AL T(SGPT) 26 U/L 11/06/2015 Comp Metabolic Wyb380 BI LI T 0.6 mg/dL 11/06/2015 Comp Metabolic Ibh114 AL BUMIN 4.0 g/dL 11/06/2015 Comp Metabolic Hel421 TP RO 6.4 g/dL 11/06/2015 Comp Metabolic Lmm475 GL OB 2.4 g/dL 11/06/2015 Comp Metabolic Dxs866 A/ G Ratio 1.7 Ratio 11/06/2015 Comp Metabolic Brg758 Os mo 286 mOsmo 11/06/2015 Tsh Ord6 hTSH II 2.59 uIU/mL 11/06/2015 Lipid Ord30 CHOL 159 mg/dL 11/06/2015 Lipid Ord30 HDL 42.0 mg/dl 11/06/2015 Lipid Ord30 TRIG 129 mg/dL 11/06/2015 Lipid Ord30 LDL 91 mg/dL 11/06/2015 Lipid Ord30 C/HDL 3.8 Ratio 11/06/2015 Comp Metabolic Bsi266 NA 140 mEq/L 08/08/2015 Comp Metabolic Lbl502 K 4.0 mEq/L 08/08/2015 Comp Metabolic Anx534 CL 108 mEq/L 08/08/2015 Comp Metabolic Ffo650 CO2 25.0 mEq/L 08/08/2015 Comp Metabolic Gcw042 AN ION GAP 11 08/08/2015 Comp Metabolic Arv348 GL UCOSE 100 mg/dL 08/08/2015 Comp Metabolic Iwd283 Cr eat 0.9 mg/dL 08/08/2015 Comp Metabolic Idz711 eG FR 82 ml/min/1.73m2 08/07 Comp Metabolic Vrw205 BUN 19 mg/dL 08/08/2015 Comp Metabolic Dog598 B/ C Ratio 20.2 Ratio 08/08/2015 Comp Metabolic Dja778 CA LCIUM 8.5 mg/dL 08/08/2015 Comp Metabolic Wev366 AL K PHOS 56 U/L 08/08/2015 Comp Metabolic Xka144 T(SGOT) 18 U/L 08/08/2015 Comp Metabolic Joy622 AL T(SGPT) 17 U/L 08/08/2015 Comp Metabolic Fcr960 BI LI T 0.7 mg/dL 08/08/2015 Comp Metabolic Jmo582 AL BUMIN 3.9 g/dL 08/08/2015 Comp Metabolic Ola827 TP RO 6.2 g/dL 08/08/2015 Comp Metabolic Tgp266 GL OB 2.3 g/dL 08/08/2015 Comp Metabolic Uad287 A/ G Ratio 1.7 Ratio 08/08/2015 Comp Metabolic Ypj170 Os mo 282 mOsmo 08/08/2015 Tsh Ord6 hTSH II 3.19 uIU/mL 08/08/2015 %Hba1C Hje214 % HbA1c 90984-0 5.7 % 08/08/2015 %Hba1C Cpa410 Gluc Ave 117 mg/dL 08/08/2015 Cbc With [...] 29.4 % 08/08/2015 Cbc With Differential Ord2 Lea% 10.9 % 08/08/2015 Cbc With Differential Ord2 [...] 1.51 K/ul 08/08/2015 Cbc With Differential Ord2 Lea ABS# 0.6 K/ul 08/08/2015 Cbc With Differential [...] accomodation 01/21/2017 None Full Exam - General 1995 Ears/Nose/Throat [...] Procedure Codes Date DRAIN/INJECT JOINT/B URSA CPT-4: 16042 08/25/2017 PPPS, SUBSEQ VISIT CPT- 4: G0439 05/30/2017 ADMIN INFLUENZA VIRU S VAC CPT-4: G0008 12/21/2016 FLU VACC PRSV FREE I NC ANTIG CPT-4: 59284 12/21/2016 PPPS, SUBSEQ VISIT CPT- 4: G0439 05/21/2016 TRIAMCINOLONE ACET I [place] NOS CPT-4: J3301 04/21/2016 THER/PROPH/DIAG INJ SC/IM CPT-4: 58624 04/21/2016 DRAIN/INJECT JOINT/B URSA CPT-4: 83700 11/13/2015 PNEUMOCOCCAL VACC [address]: 57436127 CPT-4: 66500 11/13/2015 ADMIN PNEUMOCOCCAL V ACCINE SNOMED CT: 94758447 CPT-4: G0009 11/13/2015 ADMIN INFLUENZA VIRU S VAC CPT-4: G0008 11/11/2015 FLU VACC 4 AZUL 3 YRS PLUS IM SNOMED CT: 47511327 CPT-4: 93097 11/11/2015 Vital Signs Date Vital 08/25/2017 Blood Pressure 1: 126/74 Code: 8480-6 BMI: 26.2 Code: 91223-5 Heart Rate 1: 70 bpm Height: 5'7" SpO2: 94% Weight: 167 lbs 05/30/2017 Blood Pressure 1: 120/66 Code: 8480-6 BMI: 26.6 Code: 64968-6 Heart Rate 1: 66 bpm Height: 5'7" SpO2: 95% Waist Measure (cm): 97 cm Weight: 170 lbs 04/20/2017 Blood Pressure 1: 138/78 Code: 8480-6 BMI: 26.6 Code: 33775-4 Heart Rate 1: 86 bpm Height: 5'7" SpO2: 96% Weight: 170 lbs 01/21/2017 Blood Pressure 1: 136/70 Code: 8480-6 BMI: 26.3 Code: 45533-6 Heart Rate 1: 79 bpm Height: 5'7" SpO2: 95% Weight: 168 lbs 10/22/2016 Blood Pressure 1: 134/72 Code: 8480-6 BMI: 26.3 Code: 25663-7 Heart Rate 1: 70 bpm Height: 5'7" SpO2: 95% Weight: 168 lbs 10/04/2016 Blood Pressure 1: 142/80 Code: 8480-6 BMI: 26.6 Code: 67979-4 Heart Rate 1: 72 bpm Height: 5'7" SpO2: 93% Weight: 170 lbs 06/18/2016 Blood Pressure 1: 132/76 Code: 8480-6 BMI: 26.2 Code: 49964-6 Heart Rate 1: 65 bpm Height: 5'7" SpO2: 95% Weight: 167 lbs 8 oz 05/21/2016 Blood Pressure 1: 126/76 Code: 8480-6 BMI: 26.0 Code: 86012-7 Heart Rate 1: 72 bpm Height: 5'7" SpO2: 98% Weight: 166 lbs 04/29/2016 Blood Pressure 1: 128/70 Code: 8480-6 BMI: 25.7 Code: 47986-8 Heart Rate 1: 67 bpm Height: 5'7" SpO2: 97% Temperature: 36.3 (C ) / 97.4 (F) Weight: 164 lbs 04/21/2016 Blood Pressure 1: 130/62 Code: 8480-6 BMI: 26.3 Code: 79988-1 Heart Rate 1: 74 bpm Height: 5'7" SpO2: 96% Temperature: 37.0 (C ) / 98.6 (F) Weight: 168 lbs 02/20/2016 Blood Pressure 1: 120/64 Code: 8480-6 BMI: 26.2 Code: 29111-7 Heart Rate 1: 65 bpm Height: 5'7" SpO2: 94% Weight: 167 lbs 01/01/2016 Blood Pressure 1: 106/60 Code: 8480-6 BMI: 25.7 Code: 21796-8 Heart Rate 1: 73 bpm Height: 5'7" SpO2: 98% Weight: 164 lbs 11/13/2015 Blood Pressure 1: 122/86 Code: 8480-6 BMI: 25.8 Code: 16691-4 Heart Rate 1: 80 bpm Height: 5'7" SpO2: 92% Weight: 165 lbs 11/07/2015 Blood Pressure 1: 118/64 Code: 8480-6 BMI: 25.8 Code: 14255-2 Heart Rate 1: 66 bpm Height: 5'7" SpO2: 95% Weight: 165 lbs 08/07/2015 Blood Pressure 1: 122/80 Code: 8480-6 BMI: 24.4 Code: 47414-4 Heart Rate 1: 74 bpm Height: 5'7" [...] Encounters Encounter Performer Loca tion Codes Date 90613 EST. PATIENT, LEVEL IV Diagnosis: Type 2 diabetes mellitus without complications[ICD10: E11.9] Diagnosis: Essential (primary) hypertension[ICD10: I10] Diagnosis: Pain in right knee[ICD10: M25.561] [facility] CPT-4: 48957 08/25/2017 18559 EST. PATIENT, LEVEL IV Diagnosis: Type 2 diabetes mellitus without complications[ICD10: E11.9] Diagnosis: Essential (primary) hypertension[ICD10: I10] Lakeisha Hoskins MD, [facility] CPT-4: 19273 04/20/2017 ([id number]) 33404 EST. P ATIENT, LEVEL III Diagnosis: Essential (primary) hypertension[ICD10: I10] Diagnosis: Obstructive sleep apnea (adult) (pediatric)[ICD10: G47.33] Nancy Hoskins MD, [facility] CPT-4: 85546 01/21/2017 ([id number]) 14933 EST. P ATIENT, LEVEL IV Diagnosis: Essential (primary) hypertension[ICD10: I10] Diagnosis: Type 2 diabetes mellitus without complications[ICD10: E11.9] Diagnosis: Obstructive sleep apnea (adult) (pediatric)[ICD10: G47.33] Nancy Hoskins MD, [facility] CPT-4: 29028 10/22/2016 ([id number]) 78048 EST. P ATIENT, LEVEL III Diagnosis: Localized edema[ICD10: R60.0] Diagnosis: Rash and other nonspecific skin eruption[ICD10: R21] Nancy Hoskins MD, [facility] CPT-4: 64426 10/04/2016 ([id number]) 44499 EST. P ATIENT, LEVEL IV Diagnosis: Essential (primary) hypertension[ICD10: I10] Diagnosis: Type 2 diabetes mellitus without complications[ICD10: E11.9] Diagnosis: Mixed hyperlipidemia[ICD10: E78.2] Nancy Hoskins MD, [facility] CPT-4: 89881 06/18/2016 ([id number]) 20262 EST. P ATIENT, LEVEL III Diagnosis: Cough[ICD10: R05] Diagnosis: Acute bronchitis, unspecified[ICD10: J20.9] Nancy Hoskins MD, [facility] CPT-4: 80401 04/29/2016 16397 EST. PATIENT, LEVEL IV Diagnosis: Other acute sinusitis[ICD10: J01.80] Diagnosis: Other allergic rhinitis[ICD10: J30.89] Lakeisha Hoskins MD, [facility] CPT-4: 20635 04/21/2016 ([id number]) 83620 EST. P ATIENT, LEVEL IV Diagnosis: Essential (primary) hypertension[ICD10: I10] Diagnosis: Type 2 diabetes mellitus without complications[ICD10: E11.9] Diagnosis: Mixed hyperlipidemia[ICD10: E78.2] Diagnosis: Primary generalized (osteo)arthritis[ICD10: M15.0] Nancy Hoskins MD, [facility] CPT-4: 95597 02/20/2016 ([id number]) 06460 EST. P ATIENT, LEVEL IV Diagnosis: Cough[ICD10: R05] Diagnosis: Acute bronchitis due to Hemophilus influenzae[ICD10: J20.1] Diagnosis: Type 2 diabetes mellitus without complications[ICD10: E11.9] Diagnosis: Essential (primary) hypertension[ICD10: I10] Charlene Hoskins MD, [facility] CPT-4: 60484 01/01/2016 ([id number]) 24021 EST. P ATIENT, LEVEL IV Diagnosis: Essential (primary) hypertension[ICD10: I10] Diagnosis: Mixed hyperlipidemia[ICD10: E78.2] Diagnosis: Type 2 diabetes mellitus without complications[ICD10: E11.9] Nancy Hoskins MD, [facility] CPT-4: 73846 11/07/2015 OFFICE VISIT, NEW - LEVEL 4 Diagnosis: Type 2 diabetes mellitus without complications[ICD10: E11.9] Diagnosis: Essential (primary) hypertension[ICD10: I10] Diagnosis: Mixed hyperlipidemia[ICD10: E78.2] Diagnosis: Elevated prostate specific antigen [PSA][ICD10: R97.2] Nancy Hoskins MD, [facility] CPT-4: 76232 08/07/2015 Plan of Care Planned Activity Notes [...] injection. 08/25/2017 Appointment: Lakeisha Putnam WPtel: [phone] [id number] (15 min) [...] Summary Completed 05/30/2017 Appointment: Lakeisha Putnam WPtel: [facility]5 [id number] [facility] - Annual Wellness Visit 05/27/2017 Appointment: Nancy Tavares WPtel: [facility] [place] [phone] [place] [address] (30 min) Complex 04/22/2017 Visit Plan: Hypertension [...] controlled. 04/20/2017 Appointment: Lake[facility] Put[id number] ([facility]) Complex 04/20/2017 Patient Education: Patient [...] 12/21/2016 Visit Plan: Hypertension - well con magenlled [...] machine. 10/22/2016 Appointment: Nancy Tavares WPtel: [phone] [phone] (30 min) Complex 10/22/2016 Patient Education: Patient [...] of plan. 10/04/2016 Appointment: Nancy Tavares WPtel: [address] [place], [place] [phone] (15 min) Moderate 10/04/2016 Patient Education: Patient [...] me dications. 06/18/2016 Appointment: Nancy Tavares WPtel: [address] [place], [place] [phone] (15 min) Moderate 06/18/2016 Patient Education: Patient [...] acutely worsen. 04/29/2016 Appointment: Nancy Tavares WPtel: [address] [place], [place] [phone] (15 min) Moderate 04/29/2016 Patient Education: Patient Medication Summary Completed 04/29/2016 Care Plan: CHEST X-RAY 2VW FRONTAL&LATL LOINC : 80514-3 Pending 04/29/2016 Visit Plan: Sinusitis - Pt [...] allergy spray. 04/21/2016 Appointment: Lakeisha Putnam WPtel: [address] [place], [place] [id number] (15 min) Moderate 04/21/2016 Patient Education: Patient [...] provided 02/20/2016 Appointment: Nancy Tavares WPtel: [phone] [phone] (30 min) [...] controlled. 01/01/2016 [phone] ([facility] min) Moderate 01/01/2016 Patient Education: [...] injection. 11/13/2015 Appointment: Nancy Tavares WPtel: [phone] [phone] (15 min) [...] response to medications. DM-too early for Hgb [id number]-vofocgn to have done next week 11/07/2015 Appointment: [phone] (15 min) [...] results 08/07/2015 Appointment: [phone] [place] New Patient 08/07/2015 Patient Education: Patient [...] TIMES WEEKLY CONTINUE STEROID CREAM ORDERED BY TEACHER OF THE HEARING IMPAIRED CULTURE RASH LEFT AXILLA . Edema - [...] Will fax note to [facility]. RETURN FOR FASTING L ABS . Diabetes [...] response to medications. DM-too early for Hgb [id number] to have done next week CXR STOP SYMBICORT TWO PUFFS BID . Bronchitis - acute case of bronchitis identified. Pt has been given antibiotics, breathing treatments as appropriate, and pt has been instructed to call if symptoms are not improved, or if symptoms acutely worsen.
--- OUTSIDE RECORDS SUMMARY | 2019-04-11 03:55 | XMS REPORT | CCD ---
Author Author Cesar Tavares Organization Charlene Hoskins MD, [facility] Address [address] [place] [address] Phone Care Team Providers Care Professor/Nurse Anesthetist Name Role Phone PP Unavailable CCM Unavailable Summary Purpose Interface Exchange Insurance Providers Payer name Policy type / Coverage type Covered green party ID Effective Begin Date Effective End Date WPS Medicare Part B Medicare Part B [id number] [facility] [id number] Unknown Unk nown Family history Sister Diagnosis [...] Retir ed 08/07/[address]: 7617860 Quit over 10 years ago 1970 08/07/[address]: 148617339 Never drinks alcohol 08/07/2015 Allergies, Adverse Reactions, Alerts Allergies, Adverse Reactions, Alerts data not found Past Medical History Illness Codes Condition Status Onset Date Resolved Date Essential (primary) hypertension ICD-9: 401.1 ICD-10: I10 Active 12/31/2015 Unknown Obstructive sleep ap mikel (adult) (pediatric) ICD-9: 327.23 ICD-10: G47.33 Active 10/22/2016 Unknown Encounter for immuni zation ICD-9: V04.81 ICD-10: Z23 Active 11/10/2015 Unknown Type 2 diabetes nanette itus without complications ICD-9: 250.00 ICD-10: E11.9 Active 02/19/2016 Unknown Localized edema ICD-9: 782.3 ICD-10: R60.0 [...] hypertension ICD-9: 401.1 ICD-10: I10 12/31/2015 Active Obstructive sleep ap mikel (adult) (pediatric) ICD-9: 327.23 ICD-10: G47.33 10/22/2016 Active Encounter for immuni zation ICD-9: V04.81 ICD-10: Z23 11/10/2015 Active Type 2 diabetes nanette itus without complications ICD-9: 250.00 ICD-10: E11.9 02/19/2016 Active Localized edema ICD-9: 782.3 ICD-10: R60.0 [...] Date Stop Date Sta tus Fill Instructions Tamiflu 75 mg capsule RxNorm: 572120 1 Capsule(s) PO daily 03/25/2017 03/31/2017 Active Tamiflu 75 mg capsule RxNorm: 937017 1 Capsule(s) PO daily 03/25/2017 03/24/2017 Inactive montelukast 10 mg ta blet RxNorm: 416153 TAKE ONE TABLET BY MO UT ONCE DAILY 03/21/2017 No Stop Date Active losartan 50 mg tablet RxNorm: 096394 TAKE ONE TABLET BY MOUTH ONCE DAILY 01/27/2017 No Stop Date Active fluticasone 50 mcg/a ctuation nasal spray,suspension RxNorm: 1350530 USE TWO SPRAY(S) IN EACH NOSTRIL ONCE DAILY 01/17/2017 No Stop Date Active meloxicam 7.5 mg tablet RxNorm: 013276 TAKE ONE TABLET BY MOUTH ONCE DAILY 12/06/2016 06/03/2017 Ac tive metformin 500 mg tablet RxNorm: 921055 Tablet(s) TAKE ONE TABLET BY MOUTH TWICE DAILY 11/30/2016 11/24/2017 Active simvastatin 20 mg ta blet RxNorm: 888016 TAKE ONE TABLET BY MO UTH ONCE DAILY 11/15/2016 05/13/2017 Ac tive Advair Diskus 250 mc g-50 mcg/dose powder for inhalation RxNorm: 2507797 INHALE ONE PUFF BY MOUTH TWICE DAILY 10/22/2016 04/19/2017 Active ketoconazole 2 % sha mpoo RxNorm: 797022 1 Application TOP TIW 10/04/2016 10/17/2016 Inactive fluticasone 50 mcg/a ctuation nasal spray,suspension RxNorm: 1740390 USE TWO SPRAY(S) IN EACH NOSTRIL ONCE DAILY 09/21/2016 11/19/2016 Inactive montelukast 10 mg ta blet RxNorm: 881354 TAKE ONE TABLET BY MO [facility] ONCE DAILY 09/21/2016 03/19/2017 In active losartan 50 mg tablet RxNorm: 898850 TAKE ONE TABLET BY MOUTH ONCE DAILY 08/02/2016 01/26/2017 In active metformin 500 mg tablet RxNorm: 270236 TAKE ONE TABLET BY MOUTH TWICE DAILY 07/22/2016 10/19/2016 In active furosemide 20 mg tablet RxNorm: 457953 1 Tablet(s) PO daily as needed for swell ing 07/21/2016 10/18/2016 Inactive meloxicam 7.5 mg tablet RxNorm: 222615 TAKE ONE TABLET BY MOUTH ONCE DAILY 06/08/2016 12/04/2016 In active cefdinir 300 mg capsule RxNorm: 281343 1 Capsule(s) PO BID 04/29/2016 05/05/2016 Inactive prednisone 20 mg tablet RxNorm: 684535 1 Tablet(s) PO BID 04/29/2016 05/03/2016 Inactive Zithromax Z-Sherif 250 mg tablet RxNorm: 396715 1 Tablet(s) PO UD 04/21/2016 04/28/2016 Inactive Kenalog 40 mg/mL maggie pension for injection RxNorm: 3903351 1 Milliliter(s) Inj 04/21/2016 04/21/2016 In active montelukast 10 mg ta blet RxNorm: 454491 TAKE ONE TABLET BY [facility] ONCE DAILY 03/22/2016 09/17/2016 In active fluticasone 50 mcg/a ctuation nasal spray,suspension RxNorm: 6143137 2 [place] NASAL daily each nare 03/15/2016 07/12/2016 Inactive qs metformin 500 mg tablet RxNorm: 874187 1 Tablet(s) PO daily 01/16/2016 2016 Inactive Patient does not need a refill- just upd ate dosing simvastatin 40 mg ta blet RxNorm: 051090 1 Tablet(s) PO daily 01/01/2016 No Stop Date Active Advair Diskus 250 mc g-50 mcg/dose powder for inhalation RxNorm: 9239297 1 INH BID 01/01/2016 04/29/2016 In active Advair Diskus 250 mc g-50 mcg/dose powder for inhalation RxNorm: 2244510 1 INH daily 01/01/2016 12/31/2015 Inactive metformin 500 mg tablet RxNorm: 911411 1 Tablet(s) PO daily 01/01/2016 01/15/2016 Inactive azithromycin 250 mg tablet RxNorm: 727984 1 Tablet(s) PO take t wo pills on day #1, then one pill daily x 4 more days 01/01/2016 02/17/2016 Inactive meloxicam 7.5 mg tablet RxNorm: 004031 1 Tablet(s) PO daily 12/11/2015 06/07/2016 Inactive simvastatin 20 mg ta blet RxNorm: 039562 1 Tablet(s) PO daily 11/21/2015 12/31/2015 Inactive metformin 500 mg tablet RxNorm: 282254 1 Tablet(s) PO BID 11/21/2015 12/31/2015 Inactive Advair Diskus 250 mc g-50 mcg/dose powder for inhalation RxNorm: 6525373 1 INH BID 11/21/2015 12/31/2015 In active montelukast 10 mg ta blet RxNorm: 216048 1 Tablet(s) PO daily 09/25/2015 03/21/2016 Inactive losartan 50 mg tablet RxNorm: 444727 1 Tablet(s) PO daily 09/04/2015 08/01/2016 Inactive Restasis 0.05 % eye drops in a dropperette RxNorm: 764699 1 gtts OPH BID 08/07/2015 No Stop Date Active meloxicam 7.5 mg tablet RxNorm: 848440 1 Tablet(s) PO daily 08/07/2015 09/05/2015 Inactive Kay oral RxNorm: 042148 oral No Start Date Active finasteride 5 mg tablet RxNorm: 518110 1 Tablet(s) PO daily No Start Date Active Zyrtec 10 mg tablet RxNorm: 1270500 1 Tablet(s) PO daily No Start Date Active Co Q-10 200 mg capsule RxNorm: 811006 1 Capsule(s) PO daily No Start Date Active Calcium 500 + D (D3) oral RxNorm: 564746 oral No S tart Date Active simethicone 125 mg c apsule RxNorm: 535227 Capsule(s) PO as needed No Start Date Active Vitamin D3 1,000 uni t tablet RxNorm: 705267 1 Tablet(s) PO daily No Start Date Active omega-3 fatty acids 1,000 mg capsule RxNorm: 4 Capsule(s) PO daily No Start Date Active triamcinolone aceton chasity 0.1 % topical cream RxNorm: 9141176 1 TOP UD No Start Date Active fluticasone 50 mcg/a ctuation nasal spray,suspension RxNorm: 6728594 2 [place] NASAL daily each nare No Start Date 03/14/2016 Inactive losartan 50 mg tablet RxNorm: 342235 1 Tablet(s) PO daily No Start Date 09/03/2015 Inactive metformin 500 mg tablet RxNorm: 297989 1 Tablet(s) PO daily No Start Date 11/20/2015 Inactive simvastatin 40 mg ta blet RxNorm: 858872 1 Tablet(s) PO daily No Start Date 11/20/2015 Inactive furosemide 20 mg tablet RxNorm: 944380 1 Tablet(s) PO daily as needed No Start Date 07/20/2016 Inactive Advair Diskus 250 mc g-50 mcg/dose powder for inhalation RxNorm: 7146858 1 INH daily No Start Date 11/20/2015 Inactive Multiple Vitamin oral RxNorm: 67915 oral No Start Date 12/31/2015 Inactive montelukast 10 mg ta blet RxNorm: 866583 1 Tablet(s) PO daily No Start Date 09/24/2015 Inactive Medication Administered Medication Codes Instruc tions Start Date Status Kenalog 40 mg/mL suspension for injection RxNorm: 3591160 1Milliliter 04/21/2016 N o longer Active Immunizations Vaccine Codes Date Status Influenza CVX: 141 12/21 completed Pneumococcal (Adult) CVX: 133 11/13/2015 completed Influenza CVX: 141 11/10 completed Pneumococcal CVX: 33 completed Zoster CVX: 121 02/14/20 13 completed Assessments Condition Codes Effectiv e Dates Obstructive sleep apnea (adult) (pediatric) ICD-10: G47.33 ICD-9: 327.23 01/21/2017 Essential (primary) hypertension ICD -10: I10 ICD-9: 401.1 01/21/2017 Encounter for immunization ICD-10: Z 23 ICD-9: V04.81 12/21/2016 Type 2 diabetes mellitus without complications ICD-10: E11.9 ICD-9: 250.00 10/22/2016 Rash and other nonspecific skin eruption ICD-10: [...] Reason For Visit Effective Dates Notes hypertension 01/21/2017 vaccination against influenza 12/21/2016 edema 10/22/2016 rash 10/04/2016 hypertension 06/18/2016 Annual Medicare Wellness Exam 05/21/2016 sinus congestion 04/29/2016 sinus congestion 04/21/2016 hypertension 02/20/2016 cough 01/01/2016 knee pain 11/13/2015 vaccination against influenza 11/11/2015 hypertension 11/07/2015 hypertension 08/07/2015 Results Observation Observation Code Item Item Code Result Date %Hba1C Bem662 % HbA1c 56503-2 5.8 % 10/22/2016 %Hba1C Aki177 Gluc Ave 120 mg/dL 10/22/2016 Cbc With [...] 96.3 fl 10/22/2016 Cbc With Differential Ord2 [place]% 10.3 % 10/22/2016 Cbc With Differential Ord2 [...] 1.85 K/ul 10/22/2016 Cbc With Differential Ord2 [place] ABS# 0.8 K/ul 10/22/2016 Cbc With Differential Ord2 Eos ABS# 0.3 K/ul 10/22/2016 Cbc With Differential Ord2 Baso ABS# 0.0 K/ul 10/22/2016 Comp Metabolic Wvc546 NA 141 mEq/L 10/22/2016 Comp Metabolic Pyx421 K 4.4 mEq/L 10/22/2016 Comp Metabolic Xle263 CL 105 mEq/L 10/22/2016 Comp Metabolic Qvy734 CO2 27.0 mEq/L 10/22/2016 Comp Metabolic Yjy077 AN ION GAP 13 10/22/2016 Comp Metabolic Zdw781 GL UCOSE 103 mg/dL 10/22/2016 Comp Metabolic Dsq407 Cr eat 1.0 mg/dL 10/22/2016 Comp Metabolic Ptd536 eG FR 76 ml/min/1.73m2 10/22 Comp Metabolic Tkk053 BUN 27 mg/dL 10/22/2016 Comp Metabolic Vja583 B/ C Ratio 27.0 Ratio 10/22/2016 Comp Metabolic Nnc355 CA LCIUM 9.3 mg/dL 10/22/2016 Comp Metabolic Sol529 AL K PHOS 72 U/L 10/22/2016 Comp Metabolic Mcb098 T(SGOT) 23 U/L 10/22/2016 Comp Metabolic Mpc105 AL T(SGPT) 26 U/L 10/22/2016 Comp Metabolic Gis348 BI LI T 0.4 mg/dL 10/22/2016 Comp Metabolic Zoj699 AL BUMIN 4.2 g/dL 10/22/2016 Comp Metabolic Iwz049 TP RO 6.7 g/dL 10/22/2016 Comp Metabolic Urx098 GL OB 2.5 g/dL 10/22/2016 Comp Metabolic Qnc730 A/ G Ratio 1.6 Ratio 10/22/2016 Comp Metabolic Xfi825 Os mo 287 mOsmo 10/22/2016 Total Psa Ord10 PSA 0.00 ng/mL 06/17/2016 Tsh Ord6 hTSH II 2.91 uIU/mL [...] 32.7 pg 06/17/2016 Cbc With Differential Ord2 [place]% 10.7 % 06/17/2016 Cbc With Differential Ord2 [...] 1.71 K/ul 06/17/2016 Cbc With Differential Ord2 [place] ABS# 0.6 K/ul 06/17/2016 Cbc With Differential Ord2 Eos ABS# 0.2 K/ul 06/17/2016 Cbc With Differential Ord2 Baso ABS# 0.0 K/ul 06/17/2016 %Hba1C Cbr689 % HbA1c 99878-8 6.0 % 06/17/2016 %Hba1C Ded878 Gluc Ave 126 mg/dL 06/17/2016 Lipid Ord30 CHOL 163 mg/dL 06/17/2016 Lipid Ord30 HDL 54.0 mg/dl 06/17/2016 Lipid Ord30 TRIG 133 mg/dL 06/17/2016 Lipid Ord30 LDL 82 mg/dL 06/17/2016 Lipid Ord30 C/HDL 3.0 Ratio 06/17/2016 Comp Metabolic Tec898 NA 143 mEq/L 06/17/2016 Comp Metabolic Xue764 K 4.1 mEq/L 06/17/2016 Comp Metabolic Efc335 CL 108 mEq/L 06/17/2016 Comp Metabolic Est078 CO2 28.0 mEq/L 06/17/2016 Comp Metabolic Uak635 AN ION GAP 11 06/17/2016 Comp Metabolic Szr199 GL UCOSE 106 mg/dL 06/17/2016 Comp Metabolic Ure456 Cr eat 0.9 mg/dL 06/17/2016 Comp Metabolic Pkz545 eG FR 92 ml/min/1.73m2 06/17 Comp Metabolic Rei149 BUN 22 mg/dL 06/17/2016 Comp Metabolic Lqr920 B/ C Ratio 25.9 Ratio 06/17/2016 Comp Metabolic Zjm684 CA LCIUM 8.8 mg/dL 06/17/2016 Comp Metabolic Xwn431 AL K PHOS 55 U/L 06/17/2016 Comp Metabolic Rox253 T(SGOT) 21 U/L 06/17/2016 Comp Metabolic Olr033 AL T(SGPT) 24 U/L 06/17/2016 Comp Metabolic Rix877 BI LI T 0.6 mg/dL 06/17/2016 Comp Metabolic Lya685 AL BUMIN 4.0 g/dL 06/17/2016 Comp Metabolic Hph814 TP RO 6.2 g/dL 06/17/2016 Comp Metabolic Cql147 GL OB 2.2 g/dL 06/17/2016 Comp Metabolic Yfz176 A/ G Ratio 1.8 Ratio 06/17/2016 Comp Metabolic Ndn215 Os mo 289 mOsmo 06/17/2016 Cbc With Differential Ord2 WBC 5.92 K/ul [...] 31.7 pg 02/19/2016 Cbc With Differential Ord2 [place]% 10.5 % 02/19/2016 Cbc With Differential Ord2 Eos% 5.1 % 02/19/2016 Cbc With Differential Ord2 MCHC 33.3 pg 02/19/2016 Cbc With Differential Ord2 Baso% 0.3 % 02/19/2016 Cbc With Differential Ord2 PLT 239 K/ul 02/19/2016 Cbc With Differential Ord2 Neut ABS# 3.39 K/ul 02/19/2016 Cbc With Differential Ord2 RDW 13.4 % 02/19/2016 Cbc With Differential Ord2 Lymph ABS# 1.59 K/ul 02/19/2016 Cbc With Differential Ord2 [place] ABS# 0.6 K/ul 02/19/2016 Cbc With Differential Ord2 Eos ABS# 0.3 K/ul 02/19/2016 Cbc With Differential Ord2 Baso ABS# 0.0 K/ul 02/19/2016 Lipid Ord30 CHOL 174 mg/dL 02/19/2016 Lipid Ord30 HDL 54.0 mg/dl 02/19/2016 Lipid Ord30 TRIG 110 mg/dL 02/19/2016 Lipid Ord30 LDL 98 mg/dL 02/19/2016 Lipid Ord30 C/HDL 3.2 Ratio 02/19/2016 Comp Metabolic Fst128 NA 141 mEq/L 02/19/2016 Comp Metabolic Sqx927 K 4.2 mEq/L 02/19/2016 Comp Metabolic Naw380 CL 107 mEq/L 02/19/2016 Comp Metabolic Olf598 CO2 29.0 mEq/L 02/19/2016 Comp Metabolic Vjl562 AN ION GAP 9 02/19/2016 Comp Metabolic Dzv982 GL UCOSE 106 mg/dL 02/19/2016 Comp Metabolic Twt032 Cr eat 0.9 mg/dL 02/19/2016 Comp Metabolic Mcv990 eG FR 90 ml/min/1.73m2 02/18 Comp Metabolic Mqi189 BUN 24 mg/dL 02/19/2016 Comp Metabolic Hvo723 B/ C Ratio 27.6 Ratio 02/19/2016 Comp Metabolic Saa789 CA LCIUM 9.1 mg/dL 02/19/2016 Comp Metabolic Rsc778 AL K PHOS 67 U/L 02/19/2016 Comp Metabolic Emb567 T(SGOT) 25 U/L 02/19/2016 Comp Metabolic Yix000 AL T(SGPT) 31 U/L 02/19/2016 Comp Metabolic Sep825 BI LI T 0.6 mg/dL 02/19/2016 Comp Metabolic Psb200 AL BUMIN 4.1 g/dL 02/19/2016 Comp Metabolic Bdp731 TP RO 6.5 g/dL 02/19/2016 Comp Metabolic Auv154 GL OB 2.4 g/dL 02/19/2016 Comp Metabolic Xzc151 A/ G Ratio 1.7 Ratio 02/19/2016 Comp Metabolic Rqx810 Os mo 286 mOsmo 02/19/2016 %Hba1C Dxs673 % HbA1c 89913-0 5.8 % 02/19/2016 %Hba1C Rkc592 Gluc Ave 120 mg/dL 02/19/2016 Tsh Ord6 hTSH II 2.45 uIU/mL 02/19/2016 %Hba1C Mbk930 % HbA1c 65294-8 6.0 % 11/11/2015 %Hba1C Igj065 Gluc Ave 126 mg/dL 11/11/2015 %Hba1C Fdt046 % HbA1c 54453-8 6.0 % 11/07/2015 %Hba1C Qdi645 Gluc Ave 126 mg/dL 11/07/2015 Cbc With [...] 32.0 pg 11/06/2015 Cbc With Differential Ord2 [place]% 9.5 % 11/06/2015 Cbc With Differential Ord2 [...] 1.79 K/ul 11/06/2015 Cbc With Differential Ord2 [place] ABS# 0.6 K/ul 11/06/2015 Cbc With Differential Ord2 Eos ABS# 0.3 K/ul 11/06/2015 Cbc With Differential Ord2 Baso ABS# 0.0 K/ul 11/06/2015 Tsh Ord6 hTSH II 2.59 uIU/mL 11/06/2015 Comp Metabolic Fms401 NA 141 mEq/L 11/06/2015 Comp Metabolic Ftt521 K 4.3 mEq/L 11/06/2015 Comp Metabolic Hnb734 CL 107 mEq/L 11/06/2015 Comp Metabolic Mfi051 CO2 28.0 mEq/L 11/06/2015 Comp Metabolic Rjs649 AN ION GAP 10 11/06/2015 Comp Metabolic Hnr161 GL UCOSE 117 mg/dL 11/06/2015 Comp Metabolic Aua948 Cr eat 0.9 mg/dL 11/06/2015 Comp Metabolic Fpu550 eG FR 88 ml/min/1.73m2 11/05 Comp Metabolic Lkz649 BUN 22 mg/dL 11/06/2015 Comp Metabolic Hai511 B/ C Ratio 25.0 Ratio 11/06/2015 Comp Metabolic Tcq657 CA LCIUM 9.1 mg/dL 11/06/2015 Comp Metabolic Hrx868 AL K PHOS 59 U/L 11/06/2015 Comp Metabolic Pfn761 T(SGOT) 23 U/L 11/06/2015 Comp Metabolic Ldq084 AL T(SGPT) 26 U/L 11/06/2015 Comp Metabolic Wln878 BI LI T 0.6 mg/dL 11/06/2015 Comp Metabolic Cnc566 AL BUMIN 4.0 g/dL 11/06/2015 Comp Metabolic Zug657 TP RO 6.4 g/dL 11/06/2015 Comp Metabolic Etc365 GL OB 2.4 g/dL 11/06/2015 Comp Metabolic Xqi227 A/ G Ratio 1.7 Ratio 11/06/2015 Comp Metabolic Txb181 Os mo 286 mOsmo 11/06/2015 Lipid Ord30 CHOL 159 mg/dL 11/06/2015 Lipid Ord30 HDL 42.0 mg/dl 11/06/2015 Lipid Ord30 TRIG 129 mg/dL 11/06/2015 Lipid Ord30 LDL 91 mg/dL 11/06/2015 Lipid Ord30 C/HDL 3.8 Ratio 11/06/2015 Cbc With Differential Ord2 WBC 5.14 K/ul 08/08/2015 Cbc With Differential Ord2 RBC 4.27 M/ul 08/08/2015 Cbc With Differential Ord2 HGB 13.4 g/dl 08/08/2015 Cbc With Differential Ord2 HCT 40.0 % 08/08/2015 Cbc With Differential Ord2 Neut% 55.0 % 08/08/2015 Cbc With Differential Ord2 Lymph% 29.4 % 08/08/2015 Cbc With Differential Ord2 MCV 93.7 fl 08/08/2015 Cbc With Differential Ord2 MCH 31.4 pg 08/08/2015 Cbc With Differential Ord2 [place]% 10.9 % 08/08/2015 Cbc With Differential Ord2 Eos% 4.3 % 08/08/2015 Cbc With Differential Ord2 MCHC 33.5 pg 08/08/2015 Cbc With Differential Ord2 PLT 205 K/ul 08/08/2015 Cbc With Differential Ord2 Baso% 0.4 % 08/08/2015 Cbc With Differential Ord2 RDW 13.6 % 08/08/2015 Cbc With Differential Ord2 Neut ABS# 2.83 K/ul 08/08/2015 Cbc With Differential Ord2 Lymph ABS# 1.51 K/ul 08/08/2015 Cbc With Differential Ord2 [place] ABS# 0.6 K/ul 08/08/2015 Cbc With Differential Ord2 Eos ABS# 0.2 K/ul 08/08/2015 Cbc With Differential Ord2 Baso ABS# 0.0 K/ul 08/08/2015 Lipid Ord30 CHOL 127 mg/dL 08/08/2015 Lipid Ord30 HDL 34.0 mg/dl 08/08/2015 Lipid Ord30 TRIG 93 mg/dL 08/08/2015 Lipid Ord30 LDL 74 mg/dL 08/08/2015 Lipid Ord30 C/HDL 3.7 Ratio 08/08/2015 %Hba1C Bxh387 % HbA1c 80798-6 5.7 % 08/08/2015 %Hba1C Hol830 Gluc Ave 117 mg/dL 08/08/2015 Tsh Ord6 hTSH II 3.19 uIU/mL 08/08/2015 Comp Metabolic Wcg661 NA 140 mEq/L 08/08/2015 Comp Metabolic Utg619 K 4.0 mEq/L 08/08/2015 Comp Metabolic Sib890 CL 108 mEq/L 08/08/2015 Comp Metabolic Nyp741 CO2 25.0 mEq/L 08/08/2015 Comp Metabolic Ejm881 AN ION GAP 11 08/08/2015 Comp Metabolic Toh698 GL UCOSE 100 mg/dL 08/08/2015 Comp Metabolic Ezm350 Cr eat 0.9 mg/dL 08/08/2015 Comp Metabolic Eer610 eG FR 82 ml/min/1.73m2 08/07 Comp Metabolic Duv814 BUN 19 mg/dL 08/08/2015 Comp Metabolic Smo872 B/ C Ratio 20.2 Ratio 08/08/2015 Comp Metabolic Vjv251 CA LCIUM 8.5 mg/dL 08/08/2015 Comp Metabolic Tcx755 AL K PHOS 56 U/L 08/08/2015 Comp Metabolic Pay666 T(SGOT) 18 U/L 08/08/2015 Comp Metabolic Hyc921 AL T(SGPT) 17 U/L 08/08/2015 Comp Metabolic Skl036 BI LI T 0.7 mg/dL 08/08/2015 Comp Metabolic Zbk419 AL BUMIN 3.9 g/dL 08/08/2015 Comp Metabolic Mzw274 TP RO 6.2 g/dL 08/08/2015 Comp Metabolic Arp758 GL OB 2.3 g/dL 08/08/2015 Comp Metabolic Nlk951 A/ G Ratio 1.7 Ratio 08/08/2015 Comp Metabolic Aar596 Os mo 282 mOsmo 08/08/2015 Review of Systems System Result Effective Dates Constitutional No recent illness 01/21/2017 Constitutional No [...] accomodation 08/07/2015 None Procedures Procedure Codes Date ADMIN INFLUENZA VIRU S VAC CPT-4: G0008 12/21/2016 FLU VACC PRSV FREE I [place] ANTIG CPT-4: 86602 12/21/2016 PPPS, SUBSEQ VISIT CPT- 4: G0439 05/21/2016 TRIAMCINOLONE ACET I [place] NOS CPT-4: J3301 04/21/2016 THER/PROPH/DIAG INJ SC/IM CPT-4: 83114 04/21/2016 DRAIN/INJECT JOINT/B URSA CPT-4: 13556 11/13/2015 PNEUMOCOCCAL VACC [address]: 55019354 CPT-4: 28849 11/13/2015 ADMIN PNEUMOCOCCAL V ACCINE SNOMED CT: 47887761 CPT-4: G0009 11/13/2015 ADMIN INFLUENZA VIRU S VAC CPT-4: G0008 11/11/2015 FLU VACC 4 AZUL 3 YRS PLUS IM SNOMED CT: 38593901 CPT-4: 39709 11/11/2015 Vital Signs Date Vital 01/21/2017 Blood Pressure 1: 136/70 Code: 8480-6 BMI: 26.3 Code: 32649-5 Heart Rate 1: 79 bpm Height: 5'7" SpO2: 95% Weight: 168 lbs 10/22/2016 Blood Pressure 1: 134/72 Code: 8480-6 BMI: 26.3 Code: 93289-2 Heart Rate 1: 70 bpm Height: 5'7" SpO2: 95% Weight: 168 lbs 10/04/2016 Blood Pressure 1: 142/80 Code: 8480-6 BMI: 26.6 Code: 59648-9 Heart Rate 1: 72 bpm Height: 5'7" SpO2: 93% Weight: 170 lbs 06/18/2016 Blood Pressure 1: 132/76 Code: 8480-6 BMI: 26.2 Code: 45119-0 Heart Rate 1: 65 bpm Height: 5'7" SpO2: 95% Weight: 167 lbs 8 oz 05/21/2016 Blood Pressure 1: 126/76 Code: 8480-6 BMI: 26.0 Code: 07970-3 Heart Rate 1: 72 bpm Height: 5'7" SpO2: 98% Weight: 166 lbs 04/29/2016 Blood Pressure 1: 128/70 Code: 8480-6 BMI: 25.7 Code: 25395-2 Heart Rate 1: 67 bpm Height: 5'7" SpO2: 97% Temperature: 36.3 (C ) / 97.4 (F) Weight: 164 lbs 04/21/2016 Blood Pressure 1: 130/62 Code: 8480-6 BMI: 26.3 Code: 73771-3 Heart Rate 1: 74 bpm Height: 5'7" SpO2: 96% Temperature: 37.0 (C ) / 98.6 (F) Weight: 168 lbs 02/20/2016 Blood Pressure 1: 120/64 Code: 8480-6 BMI: 26.2 Code: 87264-5 Heart Rate 1: 65 bpm Height: 5'7" SpO2: 94% Weight: 167 lbs 01/01/2016 Blood Pressure 1: 106/60 Code: 8480-6 BMI: 25.7 Code: 24650-2 Heart Rate 1: 73 bpm Height: 5'7" SpO2: 98% Weight: 164 lbs 11/13/2015 Blood Pressure 1: 122/86 Code: 8480-6 BMI: 25.8 Code: 12355-9 Heart Rate 1: 80 bpm Height: 5'7" SpO2: 92% Weight: 165 lbs 11/07/2015 Blood Pressure 1: 118/64 Code: 8480-6 BMI: 25.8 Code: 89949-5 Heart Rate 1: 66 bpm Height: 5'7" SpO2: 95% Weight: 165 lbs 08/07/2015 Blood Pressure 1: 122/80 Code: 8480-6 BMI: 24.4 Code: 16891-9 Heart Rate 1: 74 bpm Height: 5'7" SpO2: 94% Weight: 156 lbs Functional Status No Functional Status data History of Present Illness Symptom Name Status Resu lt Effective Date Notes hypertension Quality sta ble 01/21/2017 None hypertension [...] Encounters Encounter Performer Loca tion Codes Date [id number]) [id number] EST. P ATIENT, LEVEL III Diagnosis: Essential (primary) hypertension[ICD10: I10] Diagnosis: Obstructive sleep apnea (adult) (pediatric)[ICD10: G47.33] Nancy Hoskins MD, [facility] CPT-4: 39966 01/21/2017 ([id number]) 19071 EST. P ATIENT, LEVEL IV Diagnosis: Essential (primary) hypertension[ICD10: I10] Diagnosis: Type 2 diabetes mellitus without complications[ICD10: E11.9] Diagnosis: Obstructive sleep apnea (adult) (pediatric)[ICD10: G47.33] Nancy Hoskins MD, [facility] CPT-4: 78770 10/22/2016 ([id number] [id number] EST. P ATIENT, LEVEL III Diagnosis: Localized edema[ICD10: R60.0] Diagnosis: Rash and other nonspecific skin eruption[ICD10: R21] Nancy Hoskins MD, [facility] CPT-4: 50404 10/04/2016 ([id number] [id number] EST. P ATIENT, LEVEL IV Diagnosis: Essential (primary) hypertension[ICD10: I10] Diagnosis: Type 2 diabetes mellitus without complications[ICD10: E11.9] Diagnosis: Mixed hyperlipidemia[ICD10: E78.2] Nancy Hoskins MD, [facility] CPT-4: 59752 06/18/2016 ([id number]) 10443 EST. P ATIENT, LEVEL III Diagnosis: Cough[ICD10: R05] Diagnosis: Acute bronchitis, unspecified[ICD10: J20.9] Nancy Hoskins MD, [facility] CPT-4: 54904 04/29/2016 [id number] EST. PATIENT, LEVEL IV Diagnosis: Other acute sinusitis[ICD10: J01.80] Diagnosis: Other allergic rhinitis[ICD10: J30.89] Lakeisha Hoskins MD, [facility] CPT-4: 98381 04/21/2016 ([id number]) 94181 EST. P ATIENT, LEVEL IV Diagnosis: Essential (primary) hypertension[ICD10: I10] Diagnosis: Type 2 diabetes mellitus without complications[ICD10: E11.9] Diagnosis: Mixed hyperlipidemia[ICD10: E78.2] Diagnosis: Primary generalized (osteo)arthritis[ICD10: M15.0] Nancy Hoskins MD, [facility] CPT-4: 23204 02/20/2016 ([id number]) 62974 EST. P ATIENT, LEVEL IV Diagnosis: Cough[ICD10: R05] Diagnosis: Acute bronchitis due to Hemophilus influenzae[ICD10: J20.1] Diagnosis: Type 2 diabetes mellitus without complications[ICD10: E11.9] Diagnosis: Essential (primary) hypertension[ICD10: I10] Charlene Hoskins MD, [facility] CPT-4: 70434 01/01/2016 ([id number]) 53677 EST. P ATIENT, LEVEL IV Diagnosis: Essential (primary) hypertension[ICD10: I10] Diagnosis: Mixed hyperlipidemia[ICD10: E78.2] Diagnosis: Type 2 diabetes mellitus without complications[ICD10: E11.9] Nancy Hoskins MD, [facility] CPT-4: 89252 11/07/2015 OFFICE VISIT, NEW - LEVEL 4 Diagnosis: Type 2 diabetes mellitus without complications[ICD10: E11.9] Diagnosis: Essential (primary) hypertension[ICD10: I10] Diagnosis: Mixed hyperlipidemia[ICD10: E78.2] Diagnosis: Elevated prostate specific antigen [PSA][ICD10: R97.2] [facility] CPT-4: 60850 08/07/2015 Plan of Care Planned Activity Notes C odes Status Date Visit Plan: Hypertension - well con magenlled [...] HOSPITAL. 01/21/2017 Appointment: Nancy Tavares WPtel: [phone] [phone] (30 min) Complex 01/21/2017 Appointment: Nancy Tavares WPtel: [phone] [phone] (30 min) Complex 01/21/2017 Patient [...] machine. 10/22/2016 Appointment: Nancy Tavares WPtel: [phone] [phone] (30 min) Complex 10/22/2016 Patient [...] plan. 10/04/2016 Appointment: Nancy Tavares WPtel: [phone] [facility] [place] [address] (15 min) Moderate 10/04/2016 Patient Education: Patient [...] dications. 06/18/2016 Appointment: Nancy Tavares WPtel: [phone] [phone] (15 min) Moderate 06/18/2016 Patient Education: [...] acutely worsen. 04/29/2016 Appointment: Nancy Tavares WPtel: [address] [place], [place] [phone] (15 min) Moderate 04/29/2016 Patient Education: Patient Medication Summary Completed 04/29/2016 Care Plan: CHEST X-RAY 2VW FRONTAL&LATL LOINC : 56403-7 Pending 04/29/2016 Visit Plan: Sinusitis - Pt [...] allergy spray. 04/21/2016 Appointment: Lakeisha Putnam WPtel: [address] [place], [place] [phone] (15 min) Moderate 04/21/2016 Patient Education: Patient [...] provided 02/20/2016 Appointment: Nancy Tavares WPtel: [phone] [phone] (30 min) Complex 02/20/2016 Patient Education: [...] controlled. 01/01/2016 Appointment: [phone] (15 min) Moderate 01/01/2016 Patient Education: Patient [...] injection. 11/13/2015 Appointment: Nancy Tavares WPtel: [phone] [phone] (15 min) Moderate 11/13/2015 Patient [...] response to medications. DM-too early for Hgb [id number] to have done next week 11/07/2015 [facility]ment[phone] (15 min) Moderate 11/07/2015 Patient Education: [...] 08/07/2015 Appointment: Nancy Tavares WPtel[phone] New Patient 08/07/2015 Patient Education: Patient [...] to get him a new machine. . Joint Injection - Pt was given [...] her DOPA paperwork for health care surrogate. COMPRESSION STOCKING S KETOCONAZOLE SHAMPOO THREE TIMES WEEKLY CONTINUE STEROID CREAM ORDERED BY MAID HOUSEKEEPER CULTURE RASH LEFT AXILLA . Edema - [...] etc. Will fax [facility]. RETURN FOR FASTING L ABS . Diabetes Mellitus - controlled - per r esequiel FSBS reports. I have recommended for the [...] response to medications. DM-too early for Hgb [id number] to have done next week CXR STOP SYMBICORT TWO PUFFS BID . Bronchitis - acute case of bronchitis identified. Pt has been given antibiotics, breathing treatments as appropriate, and pt has been instructed to call if symptoms are not improved, or if symptoms acutely worsen.
--- OUTSIDE RECORDS SUMMARY | 2019-04-11 03:56 | XMS REPORT | CCD ---
Author Author Cesar Tavares Organization Charlene Hoskins MD, [facility] Address [address] [place] [address] Phone Care Team Providers Care Sliver Cutter Name Role Phone PP Unavailable CCM Unavailable Summary Purpose Interface Exchange Insurance Providers Payer name Policy type / Coverage type Covered alliance party ID Effective Begin Date Effective End Date WPS Medicare Part B Medicare Part B [id number] [facility] [id number] Unknown Unk nown Family history Sister Diagnosis [...] Retir ed 08/07/[address]: 6800293 Quit over 10 years ago 1970 08/07/[address]: 695113378 Never drinks alcohol 08/07/2015 Allergies, Adverse Reactions, [...] Instructions montelukast 10 mg ta blet RxNorm: 392419 TAKE ONE TABLET BY [facility] ONCE DAILY 03/21/2017 No Stop Date Active losartan 50 mg tablet RxNorm: 872348 TAKE ONE TABLET BY MOUTH ONCE DAILY 01/27/2017 No Stop Date Active fluticasone 50 mcg/a ctuation nasal spray,suspension RxNorm: 2880540 USE TWO SPRAY(S) IN EACH NOSTRIL ONCE DAILY 01/17/2017 No Stop Date Active meloxicam 7.5 mg tablet RxNorm: 133546 TAKE ONE TABLET BY MOUTH ONCE DAILY 12/06/2016 06/03/2017 Ac tive metformin 500 mg tablet RxNorm: 164161 Tablet(s) TAKE ONE TABLET BY MOUTH TWICE DAILY 11/30/2016 11/24/2017 Active simvastatin 20 mg ta blet RxNorm: 390843 TAKE ONE TABLET BY [facility] ONCE DAILY 11/15/2016 05/13/2017 Ac tive Advair Diskus 250 mc g-50 mcg/dose powder for inhalation RxNorm: 9492685 INHALE ONE PUFF BY MOUTH TWICE DAILY 10/22/2016 04/19/2017 Active ketoconazole 2 % sha mpoo RxNorm: 211662 1 Application TOP TIW 10/04/2016 10/17/2016 Inactive fluticasone 50 mcg/a ctuation nasal spray,suspension RxNorm: 0646836 USE TWO SPRAY(S) IN EACH NOSTRIL ONCE DAILY 09/21/2016 11/19/2016 Inactive montelukast 10 mg ta blet RxNorm: 732676 TAKE ONE TABLET BY [facility] ONCE DAILY 09/21/2016 03/19/2017 In active losartan 50 mg tablet RxNorm: 953573 TAKE ONE TABLET BY MOUTH ONCE DAILY 08/02/2016 01/26/2017 In active metformin 500 mg tablet RxNorm: 996902 TAKE ONE TABLET BY MOUTH TWICE DAILY 07/22/2016 10/19/2016 In active furosemide 20 mg tablet RxNorm: 792849 1 Tablet(s) PO daily as needed for swell ing 07/21/2016 10/18/2016 Inactive meloxicam 7.5 mg tablet RxNorm: 958613 TAKE ONE TABLET BY MOUTH ONCE DAILY 06/08/2016 12/04/2016 In active cefdinir 300 mg capsule RxNorm: 863682 1 Capsule(s) PO BID 04/29/2016 05/05/2016 Inactive prednisone 20 mg tablet RxNorm: 163610 1 Tablet(s) PO BID 04/29/2016 05/03/2016 Inactive Zithromax Z-Sherif 250 mg tablet RxNorm: 991657 1 Tablet(s) PO UD 04/21/2016 04/28/2016 Inactive Kenalog 40 mg/mL maggie pension for injection RxNorm: 0972595 1 Milliliter(s) Inj 04/21/2016 04/21/2016 In active montelukast 10 mg ta blet RxNorm: 513048 TAKE ONE TABLET BY [facility] ONCE DAILY 03/22/2016 09/17/2016 In active fluticasone 50 mcg/a ctuation nasal spray,suspension RxNorm: 2237688 2 [place] NASAL daily each nare 03/15/2016 07/12/2016 Inactive qs metformin 500 mg tablet RxNorm: 219275 1 Tablet(s) PO daily 01/16/2016 2016 Inactive Patient does not need a refill- just upd ate dosing simvastatin 40 mg ta blet RxNorm: 561843 1 Tablet(s) PO daily 01/01/2016 No Stop Date Active Advair Diskus 250 mc g-50 mcg/dose powder for inhalation RxNorm: 7894631 1 INH BID 01/01/2016 04/29/2016 In active Advair Diskus 250 mc g-50 mcg/dose powder for inhalation RxNorm: 7704487 1 INH daily 01/01/2016 12/31/2015 Inactive metformin 500 mg tablet RxNorm: 683641 1 Tablet(s) PO daily 01/01/2016 01/15/2016 Inactive azithromycin 250 mg tablet RxNorm: 085406 1 Tablet(s) PO take t wo pills on day #1, then one pill daily x 4 more days 01/01/2016 02/17/2016 Inactive meloxicam 7.5 mg tablet RxNorm: 167354 1 Tablet(s) PO daily 12/11/2015 06/07/2016 Inactive simvastatin 20 mg ta blet RxNorm: 622030 1 Tablet(s) PO daily 11/21/2015 12/31/2015 Inactive metformin 500 mg tablet RxNorm: 050758 1 Tablet(s) PO BID 11/21/2015 12/31/2015 Inactive Advair Diskus 250 mc g-50 mcg/dose powder for inhalation RxNorm: 6850500 1 INH BID 11/21/2015 12/31/2015 In active montelukast 10 mg ta blet RxNorm: 975137 1 Tablet(s) PO daily 09/25/2015 03/21/2016 Inactive losartan 50 mg tablet RxNorm: 074282 1 Tablet(s) PO daily 09/04/2015 08/01/2016 Inactive Restasis 0.05 % eye drops in a dropperette RxNorm: 279933 1 gtts OPH BID 08/07/2015 No Stop Date Active meloxicam 7.5 mg tablet RxNorm: 595706 1 Tablet(s) PO daily 08/07/2015 09/05/2015 Inactive Kay oral RxNorm: 535595 oral No Start Date Active finasteride 5 mg tablet RxNorm: 622081 1 Tablet(s) PO daily No Start Date Active Zyrtec 10 mg tablet RxNorm: 3470080 1 Tablet(s) PO daily No Start Date Active Co Q-10 200 mg capsule RxNorm: 127479 1 Capsule(s) PO daily No Start Date Active Calcium 500 + D (D3) oral RxNorm: 854380 oral No S tart Date Active simethicone 125 mg c apsule RxNorm: 293785 Capsule(s) PO as needed No Start Date Active Vitamin D3 1,000 uni t tablet RxNorm: 583354 1 Tablet(s) PO daily No Start Date Active omega-3 fatty acids 1,000 mg capsule RxNorm: 4 Capsule(s) PO daily No Start Date Active triamcinolone aceton chasity 0.1 % topical cream RxNorm: 9194051 1 TOP UD No Start Date Active fluticasone 50 mcg/a ctuation nasal spray,suspension RxNorm: 2464226 2 [place] NASAL daily each nare No Start Date 03/14/2016 Inactive losartan 50 mg tablet RxNorm: 927454 1 Tablet(s) PO daily No Start Date 09/03/2015 Inactive metformin 500 mg tablet RxNorm: 832209 1 Tablet(s) PO daily No Start Date 11/20/2015 Inactive simvastatin 40 mg ta blet RxNorm: 851285 1 Tablet(s) PO daily No Start Date 11/20/2015 Inactive furosemide 20 mg tablet RxNorm: 820844 1 Tablet(s) PO daily as needed No Start Date 07/20/2016 Inactive Advair Diskus 250 mc g-50 mcg/dose powder for inhalation RxNorm: 5436275 1 INH daily No Start Date 11/20/2015 Inactive Multiple Vitamin oral RxNorm: 12726 oral No Start Date 12/31/2015 Inactive montelukast 10 mg ta blet RxNorm: 169927 1 Tablet(s) PO daily No Start Date 09/24/2015 Inactive Medication Administered Medication Codes Instruc tions Start Date Status Kenalog 40 mg/mL suspension for injection RxNorm: 8825758 1Milliliter 04/21/2016 N o longer Active Immunizations [...] Cough ICD-10: R05 ICD-9: 786.2 04/29/2016 Other acute sinusitis ICD-10: J01.80 ICD-9: 461.8 04/21/2016 Other allergic rhinitis ICD-10: J30. 89 ICD-9: 477.8 04/21/2016 Primary generalized (osteo)arthritis ICD-10: M15.0 ICD-9: [...] Item Item Code Result Date Comp Metabolic Ike386 NA 141 mEq/L 10/22/2016 Comp Metabolic Oma547 K 4.4 mEq/L 10/22/2016 Comp Metabolic Shs103 CL 105 mEq/L 10/22/2016 Comp Metabolic Ske333 CO2 27.0 mEq/L 10/22/2016 Comp Metabolic Swe250 AN ION GAP 13 10/22/2016 Comp Metabolic Uax321 GL UCOSE 103 mg/dL 10/22/2016 Comp Metabolic Dll946 Cr eat 1.0 mg/dL 10/22/2016 Comp Metabolic Esp458 eG FR 76 ml/min/1.73m2 10/22 Comp Metabolic Ifi849 BUN 27 mg/dL 10/22/2016 Comp Metabolic Mpb454 B/ C Ratio 27.0 Ratio 10/22/2016 Comp Metabolic Nxb405 CA LCIUM 9.3 mg/dL 10/22/2016 Comp Metabolic Yhk616 AL K PHOS 72 U/L 10/22/2016 Comp Metabolic Imv816 T(SGOT) 23 U/L 10/22/2016 Comp Metabolic Ibt277 AL T(SGPT) 26 U/L 10/22/2016 Comp Metabolic Pqg755 BI LI T 0.4 mg/dL 10/22/2016 Comp Metabolic Trt749 AL BUMIN 4.2 g/dL 10/22/2016 Comp Metabolic Sny121 TP RO 6.7 g/dL 10/22/2016 Comp Metabolic Slm438 GL OB 2.5 g/dL 10/22/2016 Comp Metabolic Jll365 A/ G Ratio 1.6 Ratio 10/22/2016 Comp Metabolic Ciy711 Os mo 287 mOsmo 10/22/2016 Cbc With [...] 32.5 pg 10/22/2016 Cbc With Differential Ord2 [place]% 10.3 % 10/22/2016 Cbc With Differential Ord2 [...] 1.85 K/ul 10/22/2016 Cbc With Differential Ord2 [place] ABS# 0.8 K/ul 10/22/2016 Cbc With Differential Ord2 Eos ABS# 0.3 K/ul 10/22/2016 Cbc With Differential Ord2 Baso ABS# 0.0 K/ul 10/22/2016 %Hba1C Ene604 % HbA1c 17038-2 5.8 % 10/22/2016 %Hba1C Ygv982 Gluc Ave 120 mg/dL 10/22/2016 Tsh Ord6 [...] 32.7 pg 06/17/2016 Cbc With Differential Ord2 [place]% 10.7 % 06/17/2016 Cbc With Differential Ord2 [...] 1.71 K/ul 06/17/2016 Cbc With Differential Ord2 [place] ABS# 0.6 K/ul 06/17/2016 Cbc With Differential Ord2 Eos ABS# 0.2 K/ul 06/17/2016 Cbc With Differential Ord2 Baso ABS# 0.0 K/ul 06/17/2016 Total Psa Ord10 PSA 0.00 ng/mL 06/17/2016 %Hba1C Fbj879 % HbA1c 85054-8 6.0 % 06/17/2016 %Hba1C Mea816 Gluc Ave 126 mg/dL 06/17/2016 Lipid Ord30 CHOL 163 mg/dL 06/17/2016 Lipid Ord30 HDL 54.0 mg/dl 06/17/2016 Lipid Ord30 TRIG 133 mg/dL 06/17/2016 Lipid Ord30 LDL 82 mg/dL 06/17/2016 Lipid Ord30 C/HDL 3.0 Ratio 06/17/2016 Comp Metabolic Scb054 NA 143 mEq/L 06/17/2016 Comp Metabolic Uer737 K 4.1 mEq/L 06/17/2016 Comp Metabolic Gvw211 CL 108 mEq/L 06/17/2016 Comp Metabolic Gwn964 CO2 28.0 mEq/L 06/17/2016 Comp Metabolic Lib818 AN ION GAP 11 06/17/2016 Comp Metabolic Cul424 GL UCOSE 106 mg/dL 06/17/2016 Comp Metabolic Gvm357 Cr eat 0.9 mg/dL 06/17/2016 Comp Metabolic Cbm044 eG FR 92 ml/min/1.73m2 06/17 Comp Metabolic Njs660 BUN 22 mg/dL 06/17/2016 Comp Metabolic Pki135 B/ C Ratio 25.9 Ratio 06/17/2016 Comp Metabolic Nzi515 CA LCIUM 8.8 mg/dL 06/17/2016 Comp Metabolic Hcy513 AL K PHOS 55 U/L 06/17/2016 Comp Metabolic Hgo659 T(SGOT) 21 U/L 06/17/2016 Comp Metabolic Ujs227 AL T(SGPT) 24 U/L 06/17/2016 Comp Metabolic Xcn965 BI LI T 0.6 mg/dL 06/17/2016 Comp Metabolic Fds223 AL BUMIN 4.0 g/dL 06/17/2016 Comp Metabolic Cyo929 TP RO 6.2 g/dL 06/17/2016 Comp Metabolic Jbr676 GL OB 2.2 g/dL 06/17/2016 Comp Metabolic Wrz035 A/ G Ratio 1.8 Ratio 06/17/2016 Comp Metabolic Mgb771 Os mo 289 mOsmo 06/17/2016 %Hba1C Ccy038 % HbA1c 80198-7 5.8 % 02/19/2016 %Hba1C Rfl507 Gluc Ave 120 mg/dL 02/19/2016 Tsh Ord6 hTSH II 2.45 uIU/mL 02/19/2016 Comp Metabolic Mem607 NA 141 mEq/L 02/19/2016 Comp Metabolic Jgs500 K 4.2 mEq/L 02/19/2016 Comp Metabolic Iov478 CL 107 mEq/L 02/19/2016 Comp Metabolic Mdm314 CO2 29.0 mEq/L 02/19/2016 Comp Metabolic Jrj290 AN ION GAP 9 02/19/2016 Comp Metabolic Zzb153 GL UCOSE 106 mg/dL 02/19/2016 Comp Metabolic Bdc570 Cr eat 0.9 mg/dL 02/19/2016 Comp Metabolic Ohc151 eG FR 90 ml/min/1.73m2 02/18 Comp Metabolic Vvi973 BUN 24 mg/dL 02/19/2016 Comp Metabolic Bhc797 B/ C Ratio 27.6 Ratio 02/19/2016 Comp Metabolic Pii693 CA LCIUM 9.1 mg/dL 02/19/2016 Comp Metabolic Vig232 AL K PHOS 67 U/L 02/19/2016 Comp Metabolic Imh254 T(SGOT) 25 U/L 02/19/2016 Comp Metabolic Nde861 AL T(SGPT) 31 U/L 02/19/2016 Comp Metabolic Zjc928 BI LI T 0.6 mg/dL 02/19/2016 Comp Metabolic Jhk218 AL BUMIN 4.1 g/dL 02/19/2016 Comp Metabolic Uef079 TP RO 6.5 g/dL 02/19/2016 Comp Metabolic Paw230 GL OB 2.4 g/dL 02/19/2016 Comp Metabolic Kwo712 A/ G Ratio 1.7 Ratio 02/19/2016 Comp Metabolic Aaf218 Os mo 286 mOsmo 02/19/2016 Cbc With [...] 31.7 pg 02/19/2016 Cbc With Differential Ord2 [place]% 10.5 % 02/19/2016 Cbc With Differential Ord2 [...] 1.59 K/ul 02/19/2016 Cbc With Differential Ord2 [place] ABS# 0.6 K/ul 02/19/2016 Cbc With Differential Ord2 Eos ABS# 0.3 K/ul 02/19/2016 Cbc With Differential Ord2 Baso ABS# 0.0 K/ul 02/19/2016 Lipid Ord30 CHOL 174 mg/dL 02/19/2016 Lipid Ord30 HDL 54.0 mg/dl 02/19/2016 Lipid Ord30 TRIG 110 mg/dL 02/19/2016 Lipid Ord30 LDL 98 mg/dL 02/19/2016 Lipid Ord30 C/HDL 3.2 Ratio 02/19/2016 %Hba1C Udo253 % HbA1c 43030-0 6.0 % 11/11/2015 %Hba1C Dyg906 Gluc Ave 126 mg/dL 11/11/2015 %Hba1C Cnf240 % HbA1c 44783-9 6.0 % 11/07/2015 %Hba1C Mzv392 Gluc Ave 126 mg/dL 11/07/2015 Cbc With [...] 32.0 pg 11/06/2015 Cbc With Differential Ord2 [place]% 9.5 % 11/06/2015 Cbc With Differential Ord2 [...] 1.79 K/ul 11/06/2015 Cbc With Differential Ord2 [place] ABS# 0.6 K/ul 11/06/2015 Cbc With Differential Ord2 Eos ABS# 0.3 K/ul 11/06/2015 Cbc With Differential Ord2 Baso ABS# 0.0 K/ul 11/06/2015 Comp Metabolic Gni569 NA 141 mEq/L 11/06/2015 Comp Metabolic Riq856 K 4.3 mEq/L 11/06/2015 Comp Metabolic Vjf709 CL 107 mEq/L 11/06/2015 Comp Metabolic Jko624 CO2 28.0 mEq/L 11/06/2015 Comp Metabolic Psi189 AN ION GAP 10 11/06/2015 Comp Metabolic Mkx720 GL UCOSE 117 mg/dL 11/06/2015 Comp Metabolic Hrr132 Cr eat 0.9 mg/dL 11/06/2015 Comp Metabolic Sre624 eG FR 88 ml/min/1.73m2 11/05 Comp Metabolic Gvm747 BUN 22 mg/dL 11/06/2015 Comp Metabolic Ksg547 B/ C Ratio 25.0 Ratio 11/06/2015 Comp Metabolic Yme631 CA LCIUM 9.1 mg/dL 11/06/2015 Comp Metabolic Uwi930 AL K PHOS 59 U/L 11/06/2015 Comp Metabolic Hli104 T(SGOT) 23 U/L 11/06/2015 Comp Metabolic Izg645 AL T(SGPT) 26 U/L 11/06/2015 Comp Metabolic Hpf553 BI LI T 0.6 mg/dL 11/06/2015 Comp Metabolic Tqk802 AL BUMIN 4.0 g/dL 11/06/2015 Comp Metabolic Ume119 TP RO 6.4 g/dL 11/06/2015 Comp Metabolic Cqh172 GL OB 2.4 g/dL 11/06/2015 Comp Metabolic Fiz748 A/ G Ratio 1.7 Ratio 11/06/2015 Comp Metabolic Bpk670 Os mo 286 mOsmo 11/06/2015 Tsh Ord6 [...] 29.4 % 08/08/2015 Cbc With Differential Ord2 [place]% 10.9 % 08/08/2015 Cbc With Differential Ord2 [...] 1.51 K/ul 08/08/2015 Cbc With Differential Ord2 [place] ABS# 0.6 K/ul 08/08/2015 Cbc With Differential Ord2 Eos ABS# 0.2 K/ul 08/08/2015 Cbc With Differential Ord2 Baso ABS# 0.0 K/ul 08/08/2015 Tsh Ord6 hTSH II 3.19 uIU/mL 08/08/2015 Comp Metabolic Spw301 NA 140 mEq/L 08/08/2015 Comp Metabolic Tno169 K 4.0 mEq/L 08/08/2015 Comp Metabolic Fqe001 CL 108 mEq/L 08/08/2015 Comp Metabolic Zde981 CO2 25.0 mEq/L 08/08/2015 Comp Metabolic Wfk475 AN ION GAP 11 08/08/2015 Comp Metabolic Cza102 GL UCOSE 100 mg/dL 08/08/2015 Comp Metabolic Pjn523 Cr eat 0.9 mg/dL 08/08/2015 Comp Metabolic Uzh448 eG FR 82 ml/min/1.73m2 08/07 Comp Metabolic Rux366 BUN 19 mg/dL 08/08/2015 Comp Metabolic Fra732 B/ C Ratio 20.2 Ratio 08/08/2015 Comp Metabolic Urp077 CA LCIUM 8.5 mg/dL 08/08/2015 Comp Metabolic Day991 AL K PHOS 56 U/L 08/08/2015 Comp Metabolic Ntr698 T(SGOT) 18 U/L 08/08/2015 Comp Metabolic Pjp312 AL T(SGPT) 17 U/L 08/08/2015 Comp Metabolic Kjs528 BI LI T 0.7 mg/dL 08/08/2015 Comp Metabolic Dsy170 AL BUMIN 3.9 g/dL 08/08/2015 Comp Metabolic Bxp371 TP RO 6.2 g/dL 08/08/2015 Comp Metabolic Vrr052 GL OB 2.3 g/dL 08/08/2015 Comp Metabolic Smk018 A/ G Ratio 1.7 Ratio 08/08/2015 Comp Metabolic Dka134 Os mo 282 mOsmo 08/08/2015 Lipid Ord30 CHOL 127 mg/dL 08/08/2015 Lipid Ord30 HDL 34.0 mg/dl 08/08/2015 Lipid Ord30 TRIG 93 mg/dL 08/08/2015 Lipid Ord30 LDL 74 mg/dL 08/08/2015 Lipid Ord30 C/HDL 3.7 Ratio 08/08/2015 %Hba1C Org780 % HbA1c 20023-2 5.7 % 08/08/2015 %Hba1C Qow190 Gluc Ave 117 mg/dL 08/08/2015 Review of Systems System Result Effective [...] VACC PRSV FREE I NC ANTIG CPT-4: 64266 12/21/2016 PPPS, SUBSEQ VISIT CPT- 4: G0439 05/21/2016 TRIAMCINOLONE ACET I [place] NOS CPT-4: J3301 04/21/2016 THER/PROPH/DIAG INJ SC/IM CPT-4: 99431 04/21/2016 DRAIN/INJECT JOINT/B URSA CPT-4: 38784 11/13/2015 PNEUMOCOCCAL VACC [address]: 18058143 CPT-4: 93420 11/13/2015 ADMIN PNEUMOCOCCAL V ACCINE SNOMED CT: 91831289 CPT-4: G0009 11/13/2015 ADMIN INFLUENZA VIRU S VAC CPT-4: G0008 11/11/2015 FLU VACC 4 AZUL 3 YRS PLUS IM SNOMED CT: 16948149 CPT-4: 59851 11/11/2015 Vital Signs Date Vital 01/21/2017 Blood Pressure 1: 136/70 Code: 8480-6 BMI: 26.3 Code: 95498-6 Heart Rate 1: 79 bpm Height: 5'7" SpO2: 95% Weight: 168 lbs 10/22/2016 Blood Pressure 1: 134/72 Code: 8480-6 BMI: 26.3 Code: 07643-6 Heart Rate 1: 70 bpm Height: 5'7" SpO2: 95% Weight: 168 lbs 10/04/2016 Blood Pressure 1: 142/80 Code: 8480-6 BMI: 26.6 Code: 56833-6 Heart Rate 1: 72 bpm Height: 5'7" SpO2: 93% Weight: 170 lbs 06/18/2016 Blood Pressure 1: 132/76 Code: 8480-6 BMI: 26.2 Code: 52763-1 Heart Rate 1: 65 bpm Height: 5'7" SpO2: 95% Weight: 167 lbs 8 oz 05/21/2016 Blood Pressure 1: 126/76 Code: 8480-6 BMI: 26.0 Code: 01008-9 Heart Rate 1: 72 bpm Height: 5'7" SpO2: 98% Weight: 166 lbs 04/29/2016 Blood Pressure 1: 128/70 Code: 8480-6 BMI: 25.7 Code: 83491-1 Heart Rate 1: 67 bpm Height: 5'7" SpO2: 97% Temperature: 36.3 (C ) / 97.4 (F) Weight: 164 lbs 04/21/2016 Blood Pressure 1: 130/62 Code: 8480-6 BMI: 26.3 Code: 69054-1 Heart Rate 1: 74 bpm Height: 5'7" SpO2: 96% Temperature: 37.0 (C ) / 98.6 (F) Weight: 168 lbs 02/20/2016 Blood Pressure 1: 120/64 Code: 8480-6 BMI: 26.2 Code: 34629-9 Heart Rate 1: 65 bpm Height: 5'7" SpO2: 94% Weight: 167 lbs 01/01/2016 Blood Pressure 1: 106/60 Code: 8480-6 BMI: 25.7 Code: 51974-8 Heart Rate 1: 73 bpm Height: 5'7" SpO2: 98% Weight: 164 lbs 11/13/2015 Blood Pressure 1: 122/86 Code: 8480-6 BMI: 25.8 Code: 25722-8 Heart Rate 1: 80 bpm Height: 5'7" SpO2: 92% Weight: 165 lbs 11/07/2015 Blood Pressure 1: 118/64 Code: 8480-6 BMI: 25.8 Code: 97410-0 Heart Rate 1: 66 bpm Height: 5'7" SpO2: 95% Weight: 165 lbs 08/07/2015 Blood Pressure 1: 122/80 Code: 8480-6 BMI: 24.4 Code: 19321-2 Heart Rate 1: 74 bpm Height: 5'7" [...] Encounters Encounter Performer Loca tion Codes Date ([id number]) 97955 EST. P ATIENT, LEVEL III Diagnosis: Essential (primary) hypertension[ICD10: I10] Diagnosis: Obstructive sleep apnea (adult) (pediatric)[ICD10: G47.33] Nancy Hoskins MD, [facility] CPT-4: 89603 01/21/2017 ([id number]) 84128 EST. P ATIENT, LEVEL IV Diagnosis: Essential (primary) hypertension[ICD10: I10] Diagnosis: Type 2 diabetes mellitus without complications[ICD10: E11.9] Diagnosis: Obstructive sleep apnea (adult) (pediatric)[ICD10: G47.33] Nancy Hoskins MD, [facility] CPT-4: 67420 10/22/2016 ([id number]) 96674 EST. P ATIENT, LEVEL III Diagnosis: Localized edema[ICD10: R60.0] Diagnosis: Rash and other nonspecific skin eruption[ICD10: R21] Nancy Hoskins MD, [facility] CPT-4: 68872 10/04/2016 ([id number]) 83373 EST. P ATIENT, LEVEL IV Diagnosis: Essential (primary) hypertension[ICD10: I10] Diagnosis: Type 2 diabetes mellitus without complications[ICD10: E11.9] Diagnosis: Mixed hyperlipidemia[ICD10: E78.2] Nancy Hoskins MD, [facility] CPT-4: 42568 06/18/2016 ([id number]) 28588 EST. P ATIENT, LEVEL III Diagnosis: Cough[ICD10: R05] Diagnosis: Acute bronchitis, unspecified[ICD10: J20.9] Nancy Hoskins MD, [facility] CPT-4: 44543 04/29/2016 62715 EST. PATIENT, LEVEL IV Diagnosis: Other acute sinusitis[ICD10: J01.80] Diagnosis: Other allergic rhinitis[ICD10: J30.89] Lakeisha Hoskins MD, [facility] CPT-4: 12831 04/21/2016 ([id number]) 84624 EST. P ATIENT, LEVEL IV Diagnosis: Essential (primary) hypertension[ICD10: I10] Diagnosis: Type 2 diabetes mellitus without complications[ICD10: E11.9] Diagnosis: Mixed hyperlipidemia[ICD10: E78.2] Diagnosis: Primary generalized (osteo)arthritis[ICD10: M15.0] Nancy Hoskins MD, [facility] CPT-4: 80506 02/20/2016 ([id number]) 48722 EST. P ATIENT, LEVEL IV Diagnosis: Cough[ICD10: R05] Diagnosis: Acute bronchitis due to Hemophilus influenzae[ICD10: J20.1] Diagnosis: Type 2 diabetes mellitus without complications[ICD10: E11.9] Diagnosis: Essential (primary) hypertension[ICD10: I10] Charlene Hoskins MD, [facility] CPT-4: 57854 01/01/2016 ([id number]) 09945 EST. P ATIENT, LEVEL IV Diagnosis: Essential (primary) hypertension[ICD10: I10] Diagnosis: Mixed hyperlipidemia[ICD10: E78.2] Diagnosis: Type 2 diabetes mellitus without complications[ICD10: E11.9] Nancy Hoskins MD, [facility] CPT-4: 15064 11/07/2015 OFFICE VISIT, NEW - LEVEL 4 Diagnosis: Type 2 diabetes mellitus without complications[ICD10: E11.9] Diagnosis: Essential (primary) hypertension[ICD10: I10] Diagnosis: Mixed hyperlipidemia[ICD10: E78.2] Diagnosis: Elevated prostate specific antigen [PSA][ICD10: R97.2] Nancy Hoskins MD, [facility] CPT-4: 47810 08/07/2015 Plan of Care Planned Activity Notes [...] [facility] Appointment: Nancy Tavares WPtel: [phone] [phone] (30 min) Complex 01/21/2017 Appointment: Nancy Tavares WPtel: [phone] [phone] (30 min) Complex 01/21/2017 Patient Education: Patient [...] new machine. 10/22/2016 Appointment: Nancy Tavares WPtel: [phone] [phone] (30 min) Complex 10/22/2016 Patient Education: Patient [...] plan. 10/04/2016 Appointment: Nancy Tavares WPtel: [phone] (15 min) Moderate 10/04/2016 Patient Education: [...] dications. 06/18/2016 Appointment: Nancy Tavares WPtel: [phone] [phone] (15 min) Moderate 06/18/2016 Patient Education: Patient [...] acutely worsen. 04/29/2016 Appointment: Nancy Tavares WPtel: [address] [place], [place] [phone] (15 min) Moderate 04/29/2016 Patient Education: Patient Medication Summary Completed 04/29/2016 Care Plan: CHEST X-RAY 2VW FRONTAL&LATL LOINC : 57923-8 Pending 04/29/2016 Visit Plan: Sinusitis - Pt [...] allergy spray. 04/21/2016 Appointment: Lakeisha Putnam WPtel: [address] [place], [place] [phone] (15 min) Moderate 04/21/2016 Patient Education: Patient [...] Appointment: Nancy Tavares WPtel: [phone] [phone] (30 min) Complex 02/20/2016 Patient Education: Patient [...] controlled. 01/01/2016 Appointment: Charlene Hoskins WPtel: [phone] [facility] (15 min) Moderate 01/01/2016 Patient Education: Patient [...] injection. 11/13/2015 Appointment: Nancy Tavares WPtel: [phone] [phone] (15 min) Moderate 11/13/2015 Patient Education: Patient [...] response to medications. DM-too early for Hgb [id number] to have done next week 11/07/2015 [phone] [facility]) Moderate 11/07/2015 Patient Education: [...] results 08/07/2015 Appointment: [phone] [place] New Patient 08/07/2015 Patient Education: [...] TIMES WEEKLY CONTINUE STEROID CREAM ORDERED BY BALING MACHINE TENDER CULTURE RASH LEFT AXILLA . Edema - [...] Will fax note to [facility]. RETURN FOR FASTING L ABS . [...] response to medications. DM-too early for Hgb B2c-mghjphm to have done next week CXR STOP SYMBICORT TWO PUFFS BID . Bronchitis - acute case of bronchitis identified. Pt has been given antibiotics, breathing treatments as appropriate, and pt has been instructed to call if symptoms are not improved, or if symptoms acutely worsen.
--- OUTSIDE RECORDS SUMMARY | 2019-04-11 03:56 | XMS REPORT | Continuity of Care Document ---
Author Organization Unknown Address Unknown Phone Unavailable Allergies Active Description Code Type Severity Reaction Onset Reported/Identified Relationship to Patient Clinical Status Yes erythromycin base [id number] Drug Allergy Unknown N/A 09/12/2013 Yes Penicillins [id number] Drug Aller gy Unknown N/A 09/12/2013 Medications There is no data. Problems Date Dx Coded Attending Type Code Diagnosis Diagnosed By 09/12/2013 ASHLIE KIRBY MD Ot 455.0 INT HEMORRHOID W/O COMPL 09/12/2013 ASHLIE KIRBY MD Ot 455.3 EXT HEMORRHOID W/O COMPL 09/12/2013 ASHLIE KIRBY MD Ot 562.10 DIVERTICULOSIS COLON (W/O MENT OF HEMORR 09/12/2013 ASHLIE KIRBY MD Ot V12.72 PERSONAL HISTORY OF COLONIC POLYPS 09/12/2013 ASHLIE KIRBY MD Ot V16.0 FAMILY HX-GI MALIGNANCY 09/12/2013 ASHLIE KIRBY MD Ot V76.51 SCREEN MAL NEOP-COLON 07/24/2014 HUMA ANAND MD Ot 790. 93 08/07/2014 HUMA ANAND MD Ot 790. 93 04/29/2016 Ot 790.93 COLUMBA VATED PROSTATE SPECIFIC ANTIGEN [PSA] 04/29/2016 HUMA ANAND MD Ot 790. 93 ELEVATED PROSTATE SPECIFIC ANTIGEN [PSA] 04/29/2016 ISAIAS BROWNING APRN Ot 473.9 CHRONIC SINUSITIS NOS 04/29/2016 HUMA ANAND MD Ot 790. 93 ELEVATED PROSTATE SPECIFIC ANTIGEN [PSA] 04/29/2016 ASHLIE KIRBY MD Ot V72.84 EXAM PRE-OPERATIVE NOS 04/29/2016 HUMA ANAND MD Ot 790. 93 ELEVATED PROSTATE SPECIFIC ANTIGEN [PSA] 04/29/2016 DORIAN WESTONP Ot R05 COUGH 05/20/2016 DORIAN WESTON Ot R05 COUGH 05/22/2018 NALLELY, ISAIAS R DRUG ABUSE WORKER Ot 473.9 CHRONIC SINUSITIS NOS 05/22/2018 KIKA HERNANDEZ, HUMA S Ot 790. 93 ELEVATED PROSTATE SPECIFIC ANTIGEN [PSA] 05/22/2018 ASHLIE KIRBY MD Ot V72.84 EXAM PRE-OPERATIVE NOS 05/22/2018 KIKA HERNANDEZ, HUMA S Ot 790. 93 ELEVATED PROSTATE SPECIFIC ANTIGEN [PSA] 05/22/2018 DORIAN WESTON MATERIAL SPREADER Ot R05 COUGH 06/13/2018 DORIAN WESTON MATERIAL SPREADER Ot M19.012 PRIMARY OSTEOARTHRITIS, LEFT SHOULDER 06/13/2018 ENRICOREMIAGUILA Healy MATERIAL SPREADER Ot M25.552 PAIN IN LEFT HIP 06/13/2018 DORIAN WESTON MATERIAL SPREADER Ot S43.002A UNSPECIFIED SUBLUXATION OF LEFT SHOULDER 06/13/2018 DORIAN WESTON MATERIAL SPREADER Ot W19.XXXA UNSPECIFIED FALL, INITIAL ENCOUNTER 12/15/2018 HUMA ANAND MD Ot 790. 93 ELEVATED PROSTATE SPECIFIC ANTIGEN [PSA] 12/15/2018 MIRTA HERNANDEZ, ASHLIE Ot V72.84 EXAM PRE-OPERATIVE NOS 12/15/2018 HUMA ANAND MD S Ot 790. 93 ELEVATED PROSTATE SPECIFIC ANTIGEN [PSA] 12/15/2018 DORIAN WESTON MATERIAL SPREADER Ot R05 COUGH 12/15/2018 DORIAN WESTON MATERIAL SPREADER Ot M19.012 PRIMARY OSTEOARTHRITIS, LEFT SHOULDER 12/15/2018 DORIAN WESTON MATERIAL SPREADER Ot M25.552 PAIN IN LEFT HIP 12/15/2018 DORIAN WESTON MATERIAL SPREADER Ot S43.002A UNSPECIFIED SUBLUXATION OF LEFT SHOULDER 12/15/2018 DORIAN WESTON MATERIAL SPREADER Ot W19.XXXA UNSPECIFIED FALL, INITIAL ENCOUNTER 12/15/2018 ISAIAS BROWNING DRUG ABUSE WORKER Ot G47.33 OBSTRUCTIVE SLEEP APNEA (ADULT) (PEDIATR 12/19/2018 ISAIAS BROWNING DRUG ABUSE WORKER Ot G47.33 OBSTRUCTIVE SLEEP APNEA (ADULT) (PEDIATR 12/19/2018 ISAIAS BROWNING DRUG ABUSE WORKER Ot R5 1 HEADACHE 12/21/2018 ISAIAS BROWNING DRUG ABUSE WORKER Ot G47.33 OBSTRUCTIVE SLEEP APNEA (ADULT) (PEDIATR 12/21/2018 ISAIAS BROWNING DRUG ABUSE WORKER Ot R5 1 HEADACHE 04/02/2019 HUMA ANAND MD S Ot 790. 93 ELEVATED PROSTATE SPECIFIC ANTIGEN [PSA] 04/02/2019 DORIAN WESTON MATERIAL SPREADER Ot R05 COUGH 04/02/2019 DORIAN WESTON MATERIAL SPREADER Ot M19.012 PRIMARY OSTEOARTHRITIS, LEFT SHOULDER 04/02/2019 DORIAN WESTON MATERIAL SPREADER Ot M25.552 PAIN IN LEFT HIP 04/02/2019 DORIAN WESTON MATERIAL SPREADER Ot S43.002A UNSPECIFIED SUBLUXATION OF LEFT SHOULDER 04/02/2019 DORIAN WESTON MATERIAL SPREADER Ot W19.XXXA UNSPECIFIED FALL, INITIAL ENCOUNTER 04/05/2019 SADE HERNANDEZ, JULES Liu Ot D72.829 ELEVATED WHITE BLOOD CELL COUNT, UNSPECI 04/05/2019 JULES STUART MD Ot E11.9 TYPE 2 DIABETES MELLITUS WITHOUT COMPLIC 04/05/2019 JULES STUART MD Ot E78.00 PURE HYPERCHOLESTEROLEMIA, UNSPECIFIED 04/05/2019 JULES STUART MD Ot E86.0 DEHYDRATION 04/05/2019 JULES STUART MD Ot F03.90 UNSPECIFIED DEMENTIA WITHOUT BEHAVIORAL 04/05/2019 JULES STUART MD Ot I1 0 ESSENTIAL (PRIMARY) HYPERTENSION 04/05/2019 JULES STUART MD Ot J18.9 PNEUMONIA, UNSPECIFIED ORGANISM 04/05/2019 JULES STUART MD Ot J45.909 UNSPECIFIED ASTHMA, UNCOMPLICATED 04/05/2019 JULES STUART MD Ot J95.89 OTH POSTPROC COMPLICATIONS AND DISORDERS 04/05/2019 JULES STUART MD Ot M19.91 PRIMARY OSTEOARTHRITIS, UNSPECIFIED SITE 04/05/2019 JULES STUART MD Ot R3 2 UNSPECIFIED URINARY INCONTINENCE 04/05/2019 JULES STUART MD Ot Z6 6 DO NOT RESUSCITATE 04/05/2019 JULES STUART MD Ot Z85.828 PERSONAL HISTORY OF OTHER MALIGNANT NEOP 04/05/2019 JULES STUART MD Ot Z87.891 PERSONAL HISTORY OF NICOTINE DEPENDENCE 04/05/2019 JULES STUART MD Ot Z88.0 ALLERGY STATUS TO PENICILLIN 04/05/2019 JULES STUART MD Ot Z96.651 PRESENCE OF RIGHT ARTIFICIAL KNEE JOINT Procedures There is no data. Results Test Result Range Complete blood count (CBC) with automate d white blood cell (WBC) differential - 04/02/19 14:35 Blood leukocytes automated count (number/volume) 14.6 10*3/uL 4.3-11.0 Blood erythrocytes automated count (number/volume) 3.87 10*6/uL 4.35-5.85 Venous blood hemoglobin measurement (mass/volume) 12.2 g/dL 13.3-17.7 Blood hematocrit (volume fraction) 36 % 40-54 Automated erythrocyte mean corpuscular volume 94 [ foz_us] 80-99 Automated erythrocyte mean corpuscular h emoglobin (mass per erythrocyte) 32 pg 25-34 Automated erythrocyte mean corpuscular h emoglobin concentration measurement (mass/volume) 34 g/dL 32-36 Automated erythrocyte distribution width ratio 12. 8 % 10.0- 14.5 Automated blood platelet count (count/volume) 312 10*3/uL 130-400 Automated blood platelet mean volume measurement 10.3 [foz_us] 7.4-10.4 Automated blood neutrophils/100 leukocytes 87 % 42-75 Automated blood lymphocytes/100 leukocytes 6 % 12-44 Blood monocytes/100 leukocytes 6 % 0-12 Automated blood eosinophils/100 leukocytes 1 % 0-10 Automated blood basophils/100 leukocytes 0 % 0-10 Blood neutrophils automated count (number/volume) 12.7 10*3 1.8-7.8 Blood lymphocytes automated count (number/volume) 0.9 10*3 1.0-4.0 Blood monocytes automated count (number/volume) 0. 8 10*3 0.0-1.0 Automated eosinophil count 0.1 10*3/uL 0 .0-0.3 Automated blood basophil count (count/volume) 0.0 10*3/uL 0.0-0.1 Blood lactic acid measurement (moles/vol ume) - 04/02/19 14:35 Blood lactic acid measurement (moles/volume) 1.41 mmol/L 0.50-2.00 Influenza virus A and B antigen detectio n - 04/02/19 14:35 FLU RESULT NEGATIVE FOR INFLUENZA A AND B ANTIGENS BY IA NR PT panel in platelet poor plasma by coag ulation assay - 04/02/19 14:35 Prothrombin time (PT) in platelet poor plasma by coagu lation assay 15.2 s 12.2-14.7 INR in platelet poor plasma or blood by coagulation as say 1.2 0.8-1.4 Activated partial thromboplastin time (a PTT) in platelet poor plasma bycoagulation assay - 04/02/19 14:35 Activated partial thromboplastin time (a PTT) in platelet poor plasma bycoagulation assay 32 s 24-35 Comprehensive metabolic panel - 04/02/19 14:35 Serum or plasma sodium measurement (moles/volume) 137 mmol/L 135-145 Serum or plasma potassium measurement (moles/volume) 3.7 mmol/L 3.6-5.0 Serum or plasma chloride measurement (moles/volume) 104 mmol/L 98-107 Carbon dioxide 24 mmol/L 21-32 Serum or plasma anion gap determination (moles/volume) 9 mmol/L 5-14 Serum or plasma urea nitrogen measurement (mass/volume ) 27 mg/dL 7-18 Serum or plasma creatinine measurement (mass/volume) 1.03 mg/dL 0.60-1.30 Serum or plasma urea nitrogen/creatinine mass ratio 26 NRG Serum or plasma creatinine measurement w ith calculation of estimated glomerular filtration rate > NRG Serum or plasma glucose measurement (mass/volume) 166 mg/dL 70-105 Serum or plasma calcium measurement (mass/volume) 9.5 mg/dL 8.5-10.1 Serum or plasma total bilirubin measurement (mass/volu me) 0.8 mg/dL 0.1-1.0 Serum or plasma alkaline phosphatase arabella surement (enzymatic activity/volume) 67 U/L 40-136 Serum or plasma aspartate aminotransfera se measurement (enzymatic activity/volume) 21 U/L 5-34 Serum or plasma alanine aminotransferase measurement (enzymatic activity/volume) 26 U/L 0-55 Serum or plasma protein measurement (mass/volume) 7.1 g/dL 6.4-8.2 Serum or plasma albumin measurement (mass/volume) 4.0 g/dL 3.2-4.5 CALCIUM CORRECTED 9.5 mg/dL 8.5-10.1 Complete urinalysis with reflex to cultu re - 04/02/19 14:35 Urine color determination YELLOW NRG Urine clarity determination CLEAR NR G Urine pH measurement by test strip 8.0 5-9 Specific gravity of urine by test strip 1.015 1.016-1.022 Urine protein assay by test strip, semi-quantitative NEGATIVE NEGATIVE Urine glucose detection by automated test strip NE GATIVE NEGATIVE Erythrocytes detection in urine sediment by light micr oscopy NEGATIVE NEGATIVE Urine ketones detection by automated test strip NE GATIVE NEGATIVE Urine nitrite detection by test strip NEGATIVE NEGATIVE Urine total bilirubin detection by test strip NEGA TIVE NEGATIVE Urine urobilinogen measurement by automated test strip (mass/volume) 0.2 mg/dL < = 1.0 Urine leukocyte esterase detection by dipstick NEG ATIVE NEGATIVE Automated urine sediment erythrocyte cou nt by microscopy (number/high power field) RARE NRG Automated urine sediment leukocyte count by microscopy (number/high power field) [HPF] NRG Bacteria detection in urine sediment by light microsco py NEGATIVE NRG Squamous epithelial cells detection in u rine sediment by light microscopy NONE NRG Crystals detection in urine sediment by light microsco py NONE NRG Casts detection in urine sediment by light microscopy NONE NRG Mucus detection in urine sediment by light microscopy NEGATIVE NRG Complete urinalysis with reflex to culture NO NRG Manual absolute plasma cell count - 03/17 09/02 14:35 Blood monocytes/100 leukocytes 3 % NRG Manual blood segmented neutrophils/100 leukocytes 80 % NRG Blood band neutrophils/100 leukocytes 4 % NRG Manual blood lymphocytes/100 leukocytes 11 % NRG Manual eosinophils/100 leukocytes in nose 2 % NRG Bacterial urine culture - 04/02/19 14:35 Bacterial urine culture NG NRG Bacterial blood culture - 04/02/19 14:35 Bacterial blood culture NG NRG Bacterial blood culture - 04/02/19 15:06 Bacterial blood culture NG NRG Complete blood count (CBC) with automate d white blood cell (WBC) differential - 04/03/19 04:35 Blood leukocytes automated count (number/volume) 17.5 10*3/uL 4.3-11.0 Blood erythrocytes automated count (number/volume) 3.20 10*6/uL 4.35-5.85 Venous blood hemoglobin measurement (mass/volume) 10.3 g/dL 13.3-17.7 Blood hematocrit (volume fraction) 30 % 40-54 Automated erythrocyte mean corpuscular volume 95 [ foz_us] 80-99 Automated erythrocyte mean corpuscular h emoglobin (mass per erythrocyte) 32 pg 25-34 Automated erythrocyte mean corpuscular h emoglobin concentration measurement (mass/volume) 34 g/dL 32-36 Automated erythrocyte distribution width ratio 13. 2 % 10.0- 14.5 Automated blood platelet count (count/volume) 269 10*3/uL 130-400 Automated blood platelet mean volume measurement 9.9 [foz_us] 7.4-10.4 Automated blood neutrophils/100 leukocytes 84 % 42-75 Automated blood lymphocytes/100 leukocytes 8 % 12-44 Blood monocytes/100 leukocytes 7 % 0-12 Automated blood eosinophils/100 leukocytes 1 % 0-10 Automated blood basophils/100 leukocytes 0 % 0-10 Blood neutrophils automated count (number/volume) 14.6 10*3 1.8-7.8 Blood lymphocytes automated count (number/volume) 1.4 10*3 1.0-4.0 Blood monocytes automated count (number/volume) 1. 2 10*3 0.0-1.0 Automated eosinophil count 0.2 10*3/uL 0 .0-0.3 Automated blood basophil count (count/volume) 0.0 10*3/uL 0.0-0.1 Comprehensive metabolic panel - 04/03/19 04:35 Serum or plasma sodium measurement (moles/volume) 140 mmol/L 135-145 Serum or plasma potassium measurement (moles/volume) 3.8 mmol/L 3.6-5.0 Serum or plasma chloride measurement (moles/volume) 111 mmol/L 98-107 Carbon dioxide 20 mmol/L 21-32 Serum or plasma anion gap determination (moles/volume) 9 mmol/L 5-14 Serum or plasma urea nitrogen measurement (mass/volume ) 21 mg/dL 7-18 Serum or plasma creatinine measurement (mass/volume) 0.93 mg/dL 0.60-1.30 Serum or plasma urea nitrogen/creatinine mass ratio 23 NRG Serum or plasma creatinine measurement w ith calculation of estimated glomerular filtration rate > NRG Serum or plasma glucose measurement (mass/volume) 107 mg/dL 70-105 Serum or plasma calcium measurement (mass/volume) 8.2 mg/dL 8.5-10.1 Serum or plasma total bilirubin measurement (mass/volu me) 0.8 mg/dL 0.1-1.0 Serum or plasma alkaline phosphatase arabella surement (enzymatic activity/volume) 56 U/L 40-136 Serum or plasma aspartate aminotransfera se measurement (enzymatic activity/volume) 17 U/L 5-34 Serum or plasma alanine aminotransferase measurement (enzymatic activity/volume) 18 U/L 0-55 Serum or plasma protein measurement (mass/volume) 5.7 g/dL 6.4-8.2 Serum or plasma albumin measurement (mass/volume) 3.2 g/dL 3.2-4.5 CALCIUM CORRECTED 8.8 mg/dL 8.5-10.1 Automated blood complete blood count ([facility]) panel - 04/04/19 09:17 Blood leukocytes automated count (number/volume) 8.3 10*3/uL 4.3-11.0 Blood erythrocytes automated count (number/volume) 3.14 10*6/uL 4.35-5.85 Venous blood hemoglobin measurement (mass/volume) 9.8 g/dL 13.3-17.7 Blood hematocrit (volume fraction) 30 % 40-54 Automated erythrocyte mean corpuscular volume 96 [ foz_us] 80-99 Automated erythrocyte mean corpuscular h emoglobin (mass per erythrocyte) 31 pg 25-34 Automated erythrocyte mean corpuscular h emoglobin concentration measurement (mass/volume) 33 g/dL 32-36 Automated erythrocyte distribution width ratio 13. 0 % 10.0- 14.5 Automated blood platelet count (count/volume) 259 10*3/uL 130-400 Automated blood platelet mean volume measurement 10.4 [foz_us] 7.4-10.4 Automated blood complete blood count ([facility]) panel - 04/05/19 05:36 Blood leukocytes automated count (number/volume) 6.4 10*3/uL 4.3-11.0 Blood erythrocytes automated count (number/volume) 3.33 10*6/uL 4.35-5.85 Venous blood hemoglobin measurement (mass/volume) 10.2 g/dL 13.3-17.7 Blood hematocrit (volume fraction) 31 % 40-54 Automated erythrocyte mean corpuscular volume 94 [ foz_us] 80-99 Automated erythrocyte mean corpuscular h emoglobin (mass per erythrocyte) 31 pg 25-34 Automated erythrocyte mean corpuscular h emoglobin concentration measurement (mass/volume) 33 g/dL 32-36 Automated erythrocyte distribution width ratio 13. 0 % 10.0- 14.5 Automated blood platelet count (count/volume) 282 10*3/uL 130-400 Automated blood platelet mean volume measurement 10.8 [foz_us] 7.4-10.4 Whole blood basic metabolic panel - 03/18 05:36 Serum or plasma sodium measurement (moles/volume) 142 mmol/L 135-145 Serum or plasma potassium measurement (moles/volume) 3.6 mmol/L 3.6-5.0 Serum or plasma chloride measurement (moles/volume) 112 mmol/L 98-107 Carbon dioxide 19 mmol/L 21-32 Serum or plasma anion gap determination (moles/volume) 11 mmol/L 5-14 Serum or plasma urea nitrogen measurement (mass/volume ) 17 mg/dL 7-18 Serum or plasma creatinine measurement (mass/volume) 0.89 mg/dL 0.60-1.30 Serum or plasma urea nitrogen/creatinine mass ratio 19 NRG Serum or plasma creatinine measurement w ith calculation of estimated glomerular filtration rate > NRG Serum or plasma glucose measurement (mass/volume) 101 mg/dL 70-105 Serum or plasma calcium measurement (mass/volume) 8.7 mg/dL 8.5-10.1 Encounters ACCT No. Visit Date/Time Discharge Status Pt. Type Provider Facility Loc./Unit Complaint [id number] 04/02/2019 15:30:00 020 10:45:00 DIS Inpatient SADE HERNANDEZ, JULES Liu [facility] 4TH SEPSIS,PNEUMONIA [id number] 12/18/2018 19:41:00 019 05:59:00 DIS Outpatient ISAIAS BROWNING APRN [facility] SLEEP ANJUM G47.33 [id number] 05/22/2018 11:11:00 019 23:59:59 CLS Outpatient DORIAN WESTON [facility] RAD L SHOULDER AND HIP PAIN POST FALL [id number] 04/29/2016 14:18:00 017 23:59:59 CLS Outpatient DORIAN WESTON [facility] RAD COUGH [id number] 07/16/2014 08:27:00 015 23:59:59 CLS Outpatient KIKA HERNANDEZ, HUMA Gaytan [facility] LAB ELEVATED PSA [id number] 09/12/2013 08:40:00 07/30/2 014 12:50:00 DIS Outpatient ASHLIE KIRBY MD [facility] SDC HISTORY POLYPS [id number] 09/05/2013 08:13:00 014 23:59:59 CLS Outpatient ASHLIE KIRBY MD [facility] PREOP HISTORY POLYPS [id number] 07/02/2013 09:11:00 014 23:59:59 CLS Outpatient HUMA ANAND MD [facility] LAB ELEVATED PROSTATE SPECI FIC ANTIGEN [id number] 04/05/2013 07:56:00 014 23:59:59 CLS Outpatient ISAIAS BROWNING APRN [facility] RAD CHRONIC SINUSITIS [id number] 07/12/2012 08:47:00 013 23:59:59 CLS Outpatient HUMA ANAND MD [facility] LAB ELEVATED PSA [id number] 01/04/2012 10:37:00 Document Registration
== END 2019-04-05 10:45 | disposition home health service (06) | DRG 205 ==
LOC: EDUNIT# 14:16 → ER 14:17 → 4TH 15:30
PROVIDERS: ADMIT Family Medicine; ATTEND Family Medicine
DX: J95.89 Other postprocedural complications and disorders of respiratory system, not elsewhere classified (principal); J18.9 Pneumonia, unspecified organism; D72.829 Elevated white blood cell count, unspecified; E86.0 Dehydration; I10 Essential (primary) hypertension; E11.9 Type 2 diabetes mellitus without complications; E78.00 Pure hypercholesterolemia, unspecified; F03.90 Unspecified dementia, unspecified severity, without behavioral disturbance, psychotic disturbance, mood disturbance, and anxiety; Z66 Do not resuscitate; R32 Unspecified urinary incontinence; J45.909 Unspecified asthma, uncomplicated; M19.91 Primary osteoarthritis, unspecified site; Z96.651 Presence of right artificial knee joint; Z87.891 Personal history of nicotine dependence; Z85.828 Personal history of other malignant neoplasm of skin; Z88.0 Allergy status to penicillin
CPT/HCPCS: 36415; 51702; 71045; 71046; 80048; 80053; 81000; 83605; 85007; 85025; 85027; 85610; 85730; 87040; 87088; 87804; 94640; 94664; 94760; 96361; 96374; 96375

== ENCOUNTER → 2020-03-18 | Outpatient (CLI) | payer MEDICARE ==
[~2020-03-18] MED LIST changes: +ACHYD1T PO; +ASPI-1238 PO; +CALC-880 PO; +CEFD300C3 PO; +CHOL200012 PO; +CYCL1DRO OU; +DOXY100T2 PO; +FEXO180T84 PO; +FINA5TAB6 PO; +FLUT16SP22 NSEACH; +FLUT1BLS12 PO; +LOSA50TA63 PO; +MELO7.5T46 PO; +METF-397 PO; +MONT10TA97 PO; +NF-CLINGEL TD; +OMEG-154 PO; +POLY17PO6 PO; +SENN-36 PO; +SIME125T50 PO; +SIMV20TA26 PO; +TRAM50TA3 PO; +UBID200C36 PO; +[UNRECOGNIZED DRUG - CODE] PO
== END ==
LOC: LABNPT 07:54
PROVIDERS: ATTEND Family Medicine
DX: R05 Cough (principal); Z20.822 Contact with and (suspected) exposure to COVID-19
CPT/HCPCS: 87804; U0002; 87635

== ENCOUNTER 2020-05-07 05:40 | Outpatient (CLI) | payer MEDICARE ==
[~2020-05-07] VITALS: Ht 167.7 cm; Wt 71.2 kg
[~2020-05-07 05:40] MED LIST changes: +MONT10TA32 PO; -MONT10TA97 PO
[2020-05-08] MEDS ORDERED: TR1C15 TP (10:06)
== END 2020-05-08 13:55 | disposition home or self-care (01) ==
LOC: PREOP 05:40
PROVIDERS: ATTEND Surgery
DX: Z01.818 Encounter for other preprocedural examination (principal)

== ENCOUNTER → 2020-05-13 | Outpatient (CLI) | payer MEDICARE ==
[~2020-05-13] MED LIST changes: +TR1C15 TP
--- NOTE | 2020-05-13 13:08 | Diagnostic Imaging Report ---
INDICATION: Outpatient cough. FINDINGS: The lungs show no focal consolidation, failure, effusion or pneumothorax. There is flattening of the diaphragms and air trapping chronic. Lung volume is symmetric. Heart size and pulmonary vascularity within normal limits. There has been no change from study 04/05/2019. IMPRESSION: Findings of air trapping and COPD but no acute or focal infiltrate. No failure pattern or pleural collection. Dictated by: Dictated on workstation # [id number]
== END ==
LOC: RAD 12:14
PROVIDERS: ATTEND Nurse Practitioner Family
DX: J44.9 Chronic obstructive pulmonary disease, unspecified (principal)
CPT/HCPCS: 71046

== ENCOUNTER 2020-06-04 09:19 | Day surgery (SDC) | payer MEDICARE ==
--- NOTE | 2020-05-30 11:24 | HISTORY AND PHYSICAL ---
DATE OF SERVICE: PROCEDURE DATE: 06/04/2020. ATTENDING PHYSICIAN: Dr. Charlene Hoskins. HISTORY OF PRESENT ILLNESS: The patient is an 85-year-old male who is known to us. He was seen in 08/2013 for a screening colonoscopy. At that time, he was found to have chronic stage II external and internal hemorrhoids and mild sigmoid diverticulosis with remainder of the colon and rectum normal. On today's visit, he reports that he is in need of a screening colonoscopy. He reports that his sister as well as his brother were both diagnosed with colon cancer. He denies any blood in his stool as well as no diarrhea or constipation. He also denies any abdominal pain. PAST MEDICAL HISTORY: Prostate cancer, hypercholesterolemia, type 2 diabetes mellitus, hypertension, arthritis, asthma, obstructive sleep apnea, eczema. 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 ALLERGIES: PENICILLIN. MEDICATIONS: Simethicone, omega-3, calcium with vitamin D, vitamin D3, multivitamin, CoQ10, Kay, triamcinolone cream daily, Restasis 0.05% 1 drop into the affected eye b.i.d., fluticasone 50 mcg 2 puffs each nostril daily, losartan 50 mg daily, metformin 500 mg daily, finasteride 5 mg at bedtime, simvastatin 20 mg daily, Singulair 10 mg daily, meloxicam 7.5 mg daily, Advair 250/50 mcg one inhalation b.i.d. SOCIAL HISTORY: Previous tobacco smoker, 5 pack years, quit in 1969. Negative for alcohol. FAMILY HISTORY: Father, diabetes, hypertension. Brother and sister, colon cancer. Mother, hypertension. VITAL SIGNS: Blood pressure is 143/79. Current weight is 165.7 pounds, 5 feet 7 inches with a body mass index of 25.9. REVIEW OF SYSTEMS: This is a well-nourished male in no acute distress. He is not experiencing any shortness of breath or difficulty breathing. No chest pain, palpitations or diaphoresis. No nausea, vomiting or abdominal pain. No diarrhea or constipation. No red blood per rectum. No dark tarry stools. No fever or chills. No recent inadvertent weight loss. All other review of systems negative. PHYSICAL EXAMINATION: CHEST: Clear. Good breath sounds bilaterally. HEART: Regular, no murmurs. EXTREMITIES: No lower extremity edema. Negative Homans sign. HEENT: No scleral icterus. NECK: No cervical lymphadenopathy. ABDOMEN: Soft, nontender, nondistended. SKIN: Warm, dry and pink. NEUROLOGIC: Awake, alert and oriented x3. ASSESSMENT AND PLAN: An 85-year-old male with a family history of colon cancer, who is in need of a screening colonoscopy. The risks and benefits of the procedure as well as the procedure and home care instructions were explained to the patient. The patient verbalized understanding of instructions and agrees to proceed as planned. At this time, we will proceed with scheduling him for a screening colonoscopy. Job ID: [id number] DocumentID: [id number] Dictated Date: 05/30/2020 10:36:15 Simulation Analyst Date: 05/30/2020 11:23:16 Dictated By: DOMENICA LEA APRN
[~2020-06-04] VITALS: Ht 167.7 cm; Wt 71.2 kg
[~2020-06-04 09:19] MED LIST changes: +NS IV 500 ML 500 ML ONE
[2020-06-04] MEDS ORDERED: fentaNYL INJ 100 MCG/2 ML AMP IVP ONE (09:30)
[2020-06-04] MEDS ORDERED: MIDAZOLAM 5 MG/5 ML (VERSED) VIAL IV ONE (09:30)
[2020-06-04] MEDS ORDERED: LIDOCAINE JELLY 2% 6 ML SYRINGE MM PRN (09:30)
[2020-06-04] MEDS ORDERED: NS IV 500 ML 500 ML IV PRN (09:30)
[2020-06-04] MEDS ORDERED: LIDOCAINE JELLY 2% 6 ML SYRINGE ONE (10:30)
[2020-06-04] MEDS ORDERED: MIDAZOLAM 5 MG/5 ML (VERSED) VIAL ONE ×2 (10:31→11:43)
[2020-06-04] MEDS ORDERED: fentaNYL INJ 100 MCG/2 ML AMP ONE (10:31)
--- NOTE | 2020-06-04 11:38 | Progress Note-Pre Operative ---
Pre-Operative Progress Note H&P Reviewed The H&P was reviewed, patient examined and no changes noted. Date Seen by Provider: Jun 04, 2020 Time Seen by Provider: 10:30 Date H&P Reviewed: Jun 04, 2020 Time H&P Reviewed: 10:30 Pre-Operative Diagnosis: screening, family hx ASHLIE KIRBY MD Jun 04, 2020 11:38
--- NOTE | 2020-06-04 11:38 | Conscious Sedation/ASA ---
Conscious Sedation Pre-Proced Time 10:30 ASA Score 2 For ASA 3 and 4: Consider anesthesia and medical clearance. Also, for patients with a history of failed moderate sedation consider anesthesia. Airway Lungs Heart ASA score ASA 1: a normal healthy patient ASA 2: a patient with a mild systemic disease (mid diabetes, controlled hypertension, obesity ASA 3: a patient with a severe systemic disease that limits activity (angina, COPD, prior Myocardial infarction) ASA 4: a patient with an incapacitating disease that is a constant threat to life (CHF, renal failure) ASA 5: a moribund patient not expected to survive 24 hrs. (ruptured aneurysm) ASA 6: a declared brain- patient whose organs are being harvested. For emergent operations, add the letter E after the classification Mallampati Classification Grade 2 Sedation Plan Analgesia, Amnesia, Plan communicated to team members, Discussed options with patient/fam, Discussed risks with patient/fam The patient is an appropriate candidate to undergo the planned procedure, sedation, and anesthesia. The patient immediately re-assessed prior to indication. ASHLIE KIRBY MD Jun 04, 2020 11:37
--- NOTE | 2020-06-04 11:39 | Discharge Inst-Surgical ---
D/C Lap Instructions-MIRTA Follow Up Activity as tolerated High Fiber Diet 25g or more per day Avoid Alcohol, Caffeine, Spicy [place] and Acid foods. Drink 64 fluid oz or more of fluids per day. Symptoms to Report: Fever over 101 degree F, Nausea/Vomiting If any problems/questions: Contact your physician or go to Emergency Room ASHLIE KIRBY MD Jun 04, 2020 11:39
[2020-06-04] MEDS ORDERED: ACETAMINOPHEN 325 MG TABLET PO PRN (11:45)
[2020-06-04] MEDS ORDERED: morphine INJ 10 MG/ML 1ML (SYR OR VIAL) IVP PRN ×2 (11:45)
[2020-06-04] MEDS ORDERED: HYDROcodone/APAP 5 MG/325 MG (LORTAB) TAB PO PRN (11:45)
[2020-06-04] MEDS ORDERED: ONDANSETRON 4 MG/2 ML (SDV) Z0FRAN IVP PRN (11:45)
[2020-06-04 13:25] VITALS: BP 141/69
--- NOTE | 2020-06-04 15:18 | Progress Note-Post Operative ---
Post-Operative Progess Note Surgeon (s)/Wooden Box Maker (s) Surgeon ASHLIE KIRBY MD Wooden Box Maker: none Pre-Operative Diagnosis screening, family hx Post-Operative Diagnosis mild chronic stage ext and int hemorrhoids, moderate sigmoid diverticulosis. Procedure & Operative Findings Date of Procedure 06/04/20 Procedure Performed/Findings colonoscopy Anesthesia Type cs Estimated Blood Loss Estimated blood loss (mL): minimal Specimens/Packing Specimens Removed none ASHLIE KIRBY MD Jun 04, 2020 15:18
--- NOTE | 2020-06-04 17:37 | OPERATIVE REPORT ---
DATE OF SERVICE: 06/04/2020 PREOPERATIVE DIAGNOSIS: Screening colonoscopy with family history of colon cancer. POSTOPERATIVE DIAGNOSES: Mild chronic stage II external and internal hemorrhoids, moderate sigmoid diverticulosis. PROCEDURE: Colonoscopy. SURGEON: Ashlie Kirby MD. ANESTHESIA: Conscious sedation. ESTIMATED BLOOD LOSS: Minimal. FINDINGS: Mild chronic stage II external and internal hemorrhoids, moderate sigmoid diverticulosis. DISPOSITION: The patient tolerated the procedure well. INDICATIONS: The patient is an 85-year-old male in need of a screening colonoscopy. He states that he is otherwise doing well, does not report any major issues with diarrhea nor constipation as well as no red blood per rectum nor any dark tarry stools. He does have a family history of colon cancer with two siblings having the disease. DESCRIPTION OF PROCEDURE: The patient was brought to the endoscopy suite, laid in left lateral decubitus position. After adequate IV pain and sedative medications and conscious sedation anesthesia, digital rectal examination was performed. Mild chronic stage II external and internal hemorrhoids were identified, which were not actively edematous nor inflamed and no bleeding. Normal sphincter tone was felt and there were no palpable masses. Prostate gland was palpable and appeared normal. The endoscope was then intubated into the anus and rectum gently insufflated. The endoscope was then advanced through the valves of Fort[place] of the rectum with no polyps or any neoplasms identified. The endoscope was then advanced through the sigmoid colon where a moderate sigmoid diverticulosis identified. There were no mucosal inflammatory changes to indicate any active diverticulitis. The endoscope was then advanced to the remainder of the descending, transverse and ascending colon to the cecum. These segments were normal. No polyps, nor any neoplasms identified throughout the colon or rectum. The endoscope was then slowly withdrawn while taking a second look and suctioning of residual air with no additional findings. The patient tolerated the procedure well. We will recommend continuation of a high fiber diet with fiber supplementation, which should equal or exceed 30 grams daily as well as significant amounts of water to promote soft stools on a daily basis. Due to his first-degree family history of colon cancer, we will recommend a followup colonoscopy in five years. 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
== END 2020-06-04 13:25 | disposition home or self-care (01) ==
LOC: ENDO 09:19
PROVIDERS: ATTEND Surgery
DX: Z12.11 Encounter for screening for malignant neoplasm of colon (principal); K64.1 Second degree hemorrhoids; K57.30 Diverticulosis of large intestine without perforation or abscess without bleeding; E78.00 Pure hypercholesterolemia, unspecified; E11.9 Type 2 diabetes mellitus without complications; J45.909 Unspecified asthma, uncomplicated; M19.90 Unspecified osteoarthritis, unspecified site; G47.33 Obstructive sleep apnea (adult) (pediatric); Z79.84 Long term (current) use of oral hypoglycemic drugs; Z79.51 Long term (current) use of inhaled steroids; Z79.899 Other long term (current) drug therapy; Z88.0 Allergy status to penicillin; Z88.1 Allergy status to other antibiotic agents; Z85.46 Personal history of malignant neoplasm of prostate; Z90.49 Acquired absence of other specified parts of digestive tract; Z80.0 Family history of malignant neoplasm of digestive organs

== ENCOUNTER → 2020-10-23 | Outpatient (CLI) | payer MEDICARE ==
[~2020-10-23] MED LIST changes: -NS IV 500 ML 500 ML ONE
--- NOTE | 2020-10-23 11:32 | Diagnostic Imaging Report ---
INDICATION: Cough. COMPARISON: 05/13/2020 FINDINGS: The lungs are clear. Heart size is within normal limits. No vascular congestion. No edema, pneumonia, effusion or pneumothorax. IMPRESSION: No acute appearing abnormality. Dictated by: Dictated on workstation # [id number]
== END ==
LOC: RAD 11:12
PROVIDERS: ATTEND Family Medicine
DX: R05 Cough (principal)
CPT/HCPCS: 71046

== ENCOUNTER 2021-11-11 11:37 | Emergency (ER) | payer MEDICARE ==
[~2021-11-11] VITALS: Ht 170 cm; Wt 70.3 kg
[~2021-11-11 11:37] MED LIST changes: +MONT-40 PO; -MONT10TA32 PO
[2021-11-11] MEDS ORDERED: TETANUS,DIPTH,PERTUSS P/F (BOOSTRIX) 0.5 ML VIAL IM ONE (12:15)
--- NOTE | 2021-11-11 12:42 | ED Integumentary General ---
General Chief Complaint: Skin/Wound Problems Stated Complaint: FALL/LEFT HAND LAC Nursing Triage Note: pt presents to ed via pov accompanied by with complaints of lac to l palm and abrasion to l forehead when he tripped over a curb when weedeating. pt denies loc or head ache. Source: patient Exam Limitations: no limitations (NISHI BROTHERS APRN) History of Present Illness Date Seen by Provider: Nov 11, 2021 Time Seen by Provider: 12:42 Initial Comments This is a 86-year-old male who presented to the ER via POV with his spouse for complaints of laceration to his left palm and abrasion to the left side of his forehead. States that he tripped over a curb whenever he was weed eating. Landed on the dirt ground. He denies loss of consciousness, headache, neck pain. Last tetanus unknown. Bleeding controlled with direct pressure. (NISHI BROTHERS APRN) Allergies and Home Medications Allergies Coded Allergies: Penicillins (Unverified Allergy, Unknown, 09/12/13) erythromycin base (Unverified Allergy, Unknown, 09/12/13) Patient Home Medication List Home Medication List Reviewed: Yes (NISHI BROTHERS APRN) Aspirin (Aspirin EC) 81 Mg Tablet.dr, 81 MG PO DAILY, (Reported) Entered as Reported by: JASON MONTES on 04/03/19 0948 Calcium Carbonate/Vitamin D3 (Calcium 500 + Vit D 400 Tablet) 1 Each Tablet, 2 EACH PO DAILY, (Reported) Entered as Reported by: JASON MONTES on 04/03/19 0948 Cephalexin (Cephalexin) 500 Mg Tablet, 500 MG PO QID Prescribed by: NISHI BROTHERS on 11/11/21 1316 Cholecalciferol (Vitamin D3) (D3-2000) 50 Mcg Capsule, 50 MCG PO DAILY, (Reported) Entered as Reported by: JASON MONTES on 04/03/19 0924 Cyclosporine (Restasis) 1 Each Droperette, 1 EACH OU BID, (Reported) Entered as Reported by: JASON MONTES on 04/03/19 0949 Fexofenadine HCl (Kay Allergy) 180 Mg Tablet, 180 MG PO DAILY, (Reported) Entered as Reported by: JASON MONTES on 04/03/19 0931 Finasteride (Finasteride) 5 Mg Tablet, 5 MG PO DAILY, (Reported) Entered as Reported by: JASON MONTES on 04/03/19921 Fluticasone Propion/Salmeterol (Fluticasone-Salmeterol 250-50) 1 Each Blst.w.dev, 1 PUFF PO BID, (Reported) Entered as Reported by: JASON MONTES on 04/03/19921 Losartan Potassium (Losartan Potassium) 50 Mg Tablet, 50 MG PO DAILY, (Reported) Entered as Reported by: JASON MONTES on 04/03/19923 Meloxicam (Meloxicam) 7.5 Mg Tablet, 7.5 MG PO DAILY, (Reported) Entered as Reported by: JASON MONTES on 04/03/19921 Metformin HCl (Metformin HCl) 500 Mg Tablet, 500 MG PO DAILY, (Reported) Entered as Reported by: JASON MONTES on 04/03/19921 Montelukast Sodium (Montelukast Sodium) 10 Mg Tablet, 10 MG PO HS, (Reported) Entered as Reported by: JASON MONTES on 04/03/19921 Shoshone-3S/Dha/Epa/Fish Oil (Fish Oil Shoshone-3 Softgel) 1 Each Capsule.dr, 2 EACH PO DAILY, (Reported) Entered as Reported by: JASON MONTES on 04/03/19939 Sennosides (Senokot) 8.6 Mg Tablet, 8.6 MG PO BID, (Reported) Entered as Reported by: JASON MONTES on 04/03/19947 Simethicone (Simethicone) 125 Mg Tab.chew, 125 MG PO PRN PRN for GAS, (Reported) Entered as Reported by: JASON MONTES on 04/03/19947 Simvastatin (Simvastatin) 20 Mg Tablet, 20 MG PO DAILY, (Reported) Entered as Reported by: JASON MONTES on 04/03/19921 Triamcinolone Acet (Triamcinolone Acetonide 0.1% Cream) 15 Gm Cr, 15 GM TP, (Reported) Entered as Reported by: NONI DODGE on 05/08/20 1006 Ubidecarenone (Co Q10) 200 Mg Capsule, 200 MG PO 1200, (Reported) Entered as Reported by: JASON MONTES on 04/03/19 0036 Review of Systems Review of Systems Constitutional: see HPI (NISHI BROTHERS APRN) Past Kejgwin-Azfcyy-Udcnlv Hx Patient Social History Tobacco Use?: No Smokeless Tobacco Frequency: Never a User Substance use?: No Alcohol Use?: No Pt feels they are or have been: No (NISHI BROTHERS APRN) Immunizations Up To Date Tetanus Booster (TDap): Unknown PED Vaccines UTD: Yes First/Initial COVID19 Vaccinat: Second COVID19 Vaccination Asher: Third COVID19 Vaccination Date: (NISHI BROTHERS MILKING MACHINE OPERATOR) Seasonal Allergies Seasonal Allergies: No (NISHI BROTHERS APRN) Past Medical History Surgery/Hospitalization HX: pmh: htn, borderline dm, high cholesterol, prostate ca, Surgeries: Yes (right knee surgery, vascectomy, right heel surgery due to injury) Gallbladder, Orthopedic Respiratory: Yes (ASTHMA) Sleep Apnea Currently Using CPAP: Yes Currently Using BIPAP: No Cardiac: Yes High Cholesterol, Hypertension Neurological: No 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) Kidney Infection, Prostate Problems Gastrointestinal: Yes (HX COLON POLYPS) Musculoskeletal: Yes (ARTHRITIS) Endocrine: Yes Diabetes, Non-Insulin dep HEENT: Yes Cataract Loss of Vision: Bilateral Hearing Impairment: Denies Cancer: Yes Prostate, Skin Did You Recieve Any Treatments: Yes What Type of Treatment Did You: Surgical Intervention Psychosocial: No Integumentary: Yes Eczema Blood Disorders: No (NISHI BROTHERS APRN) Family Medical History Colon cancer Diabetes mellitus 19 FATHER Diabetes, Hypertension (NISHI BROTHERS APRN) Physical Exam Vital Signs Capillary Refill : Less Than 3 Seconds (NISHI BROTHERS APRN) General Appearance: WD/WN, no apparent distress HEENT: PERRL/EOMI, normal ENT inspection Neurologic/Psychiatric: alert, normal mood/affect, oriented x 3 Skin: normal color, warm/dry Skin Problem Location: other (2cm laceration webspace left thumb and 1st finger, no tendon or artery involvement. ) Skin Problem Character: linear (NISHI BROTHERS APRN) Procedures/Interventions Other Wound Location Left hand webspace of thumb and first finger Wound's Depth, Shape: linear Wound Explored: clean Betadine Prep?: Yes Anesthesia: 1% Lidocaine Volume Anesthetic (ccs): 2 Suture: Ethlion Suture Size: 4-0 Number of Sutures: 4 (NISHI BROTHERS APRN) Progress/Results/Core Measures Results/Orders Blood Pressure Mean: 98 Departure Impression Primary Impression: Laceration of hand, left Disposition: 01 HOME, SELF-CARE Condition: Improved Departure-Patient Inst. Decision time for Depature: 13:14 (NISHI BROTHERS APRN) Referrals: JULES STUART MD (PCP/Family) Primary Care Physician Patient Instructions: Laceration Repair With Stitches (DC) Add. Discharge Instructions: Plan: 1. Discharge home. 2. Keep wound clean and dry. Take antibiotics as directed and complete full course. 3. Remove bandage after 24 hours, then re-bandage after cleaning with mild soap and water. Wash wound daily. You can leave open to air after a few days. 4. If you are working in dirty area, cover with dry bandage. 5. Despite the best care, any wound can become infected. Watch for increase in redness, swelling, increase in pain, drainage, red streaks or fever and report any of these to your physician or return to the emergency room. 6. Return to the ER in 7-10 days to have your (#4) sutures removed. 7. Your tetanus was updated today. The shot site may become warm, swollen, red or tender, this is normal. You may also have a low grade fever. 8. Return to ER for any new, concerning, or worsening symptoms. All discharge instructions reviewed with patient and/or family. Voiced understanding. Scripts Cephalexin (Cephalexin) 500 Mg Tablet 500 MG PO QID for 7 Days, #28 TAB 0 Refills Prov: NISHI BROTHERS APRN 11/11/21 ATTENDING PHYSICIAN NOTE: I was physically present as attending physician in the emergency department during the care of this patient, but I was not directly involved in the decision making or delivery of care for this patient. (GRACY NGUYEN MD) NISHI BROTHERS APRN Nov 11, 2021 12:42 GRACY NGUYEN MD Nov 23, 2021 04:11
[2021-11-11] MEDS ORDERED: CEPHALEXIN 250 MG (KEFLEX) CAP PO ONE (12:45)
[2021-11-11] MEDS ORDERED: CEPH500T PO (13:16)
[2021-11-11 13:20] VITALS: BP 147/68
== END 2021-11-11 13:21 | disposition home or self-care (01) ==
LOC: EDUNIT# 11:37 → ER 11:38
DX: S61.412A Laceration without foreign body of left hand, initial encounter (principal); G47.30 Sleep apnea, unspecified; Z99.89 Dependence on other enabling machines and devices; Z23 Encounter for immunization; W10.1XXA Fall (on)(from) sidewalk curb, initial encounter
CPT/HCPCS: 12002; 12013; 90471; 90715

== ENCOUNTER 2021-11-20 07:05 | Emergency (ER) | payer MEDICARE ==
[~2021-11-20 07:05] MED LIST changes: +CEPH500T PO
[2021-11-20 07:23] VITALS: BP 115/72
== END 2021-11-20 07:30 | disposition home or self-care (01) ==
LOC: EDUNIT# 07:05 → ER 07:06
DX: Z48.02 Encounter for removal of sutures (principal)

== ENCOUNTER → 2021-11-24 | Outpatient (CLI) | payer MEDICARE ==
--- NOTE | 2021-11-24 14:11 | Diagnostic Imaging Report ---
INDICATION: Knee pain, fall. COMPARISON: None available TECHNIQUE: 3 radiographs of the right knee dated 11/24/2021. FINDINGS: Right total knee arthroplasty without evidence of hardware complication. No acute fracture or dislocation. No destructive osseous process. Moderate background vascular calcifications. IMPRESSION: Right total knee arthroplasty without hardware complication or acute osseous abnormality. Moderate background vascular calcifications. Dictated by: Dictated on workstation # [id number]
--- NOTE | 2021-11-24 16:21 | Diagnostic Imaging Report ---
INDICATION: Right foot pain. TECHNIQUE: AP, oblique, and lateral views of the right foot were obtained. FINDINGS: No fracture or acute bony abnormality is seen. There are diffuse degenerative changes throughout the interphalangeal joints and MCP joints. There is no lytic or blastic lesion. There are vascular calcifications noted. IMPRESSION: Diffuse chronic changes of the right foot with no fracture or destructive bony lesion. Dictated by: Dictated on workstation # [id number]
== END ==
LOC: RAD 10:28
PROVIDERS: ATTEND Family Medicine
DX: M25.561 Pain in right knee (principal); M79.671 Pain in right foot; Z96.651 Presence of right artificial knee joint
CPT/HCPCS: 73562; 73630